=== PATIENT | male | born 1935 | race Caucasian/White ===

== ENCOUNTER → 2017-04-06 | Outpatient (CLI) | payer MEDICARE ==
[~2017-04-06] MED LIST: ADVAIR 250-501 EACH INH; ALLOPURINOL300 MG PO; ASCRIPTIN 325325 MG PO; ASPIRIN325 MG PO; ATENOLOL50 MG; BACTRIM DS TAB1 EACH PO; COZAAR50 MG PO; FISH OIL 1,2001 EAC1 PO; FLAGYL500 MG PO; FLOMAX0.4 MG PO; HUMULIN N100 UNITS/ SQ; HUMULIN R 500; HUMULIN R100 UNIT/2 SQ; HUMULIN R500 UNIT/1 SQ; ISOSORBIDE MONO30 MG PO; ISOSORBIDE MONO60 M1 PO; KLOR-CON PO; LEVOTHYROXINE75 MCG PO; OMEGA 3 FISH O1 EACH PO; TRICOR PO; VITAMIN E400 UNI1 PO; Z.0.ATENOLOL50 MG PO; Z.0.COZAAR50 MG PO; Z.0.FUROSEMIDE40 MG PO; Z.0.HUMULIN N100 UNI SC; Z.0.HUMULIN R500 UNI SC; Z.0.SYNTHROID100 MCG PO
--- NOTE | 2017-04-06 14:10 | Diagnostic Imaging Report ---
PROCEDURE:US RETROPERITONEAL ( KIDNEY ). COMPARISON:CT abdomen 08/07/16 INDICATIONS:RENAL CYST TECHNIQUE: Luu-scale and color sonographic images of the bilateral kidneys and bladder where obtained in transverse and longitudinal planes. Study is compromised due to patient's generous body habitus. FINDINGS: RIGHT KIDNEY: Measures 14 cm in length. The cortex is diminutive. Cysts: None visualized Solid masses: None visualized Stones: None visualized Hydronephrosis: None Echogenicity: Normal LEFT KIDNEY: Measures 16 cm in length. The cortex is diminutive. Cysts: None visualized Solid masses: Nonvisualized Stones: Nonvisualized Hydronephrosis: None Echogenicity: Normal Bladder: Collapsed. No free fluid. Visualized portions of the liver demonstrate no evidence of mass. The liver is increased in echotexture suggestive of steatosis. CONCLUSION: Compromised study as described above. Renal masses, if present, are not visible. Atrophic kidneys. No hydronephrosis. Dictated by: Ryan Mead M.D. on 04/06/2017 at 14:18 Electronically approved by: Ryan Mead M.D. on 04/06/2017 at 14:18
== END ==
LOC: US 12:04
PROVIDERS: ATTEND Urology
DX: N28.1 Cyst of kidney, acquired (principal)
CPT/HCPCS: 76770

== ENCOUNTER → 2017-06-13 | Outpatient (CLI) | payer MEDICARE ==
--- NOTE | 2017-06-13 12:03 | Diagnostic Imaging Report ---
PROCEDURE:X-RAY MODIFIED BARIUM SWALLOW COMPARISON:None. INDICATIONS:Not provided. DISCUSSION:Fluoroscopic examination was performed in conjunction with speech pathology, during swallowing of a variety of thin and thick liquid consistencies. CONCLUSION:Radiopaque noted with multiple consistencies. Wilmer aspiration noted with administration of thin liquid. Please see the report from speech pathology for complete details. Dictated by: Ricardo Gaxiola M.D. on 06/13/2017 at 12:03 Electronically approved by: Ricardo Gaxiola M.D. on 06/13/2017 at 12:03
== END ==
LOC: DX 08:09 → EDSTATUS 09:00
PROVIDERS: ATTEND Internal Medicine Gastroenterology
DX: R13.10 Dysphagia, unspecified (principal)
CPT/HCPCS: 74230; 92611; G8996; G8997

== ENCOUNTER 2017-06-19 15:18 | Emergency (ER) | payer MEDICARE ==
[~2017-06-19] VITALS: Ht 185.4 cm; Wt 149.7 kg
== END 2017-06-19 17:03 | disposition home or self-care (01) ==
LOC: ER 15:43
DX: M79.672 Pain in left foot (principal); E10.40 Type 1 diabetes mellitus with diabetic neuropathy, unspecified; I10 Essential (primary) hypertension; E66.9 Obesity, unspecified
CPT/HCPCS: 99281

== ENCOUNTER 2017-07-26 11:51 | Outpatient (RCR) | payer MEDICARE | END 2017-07-30 | LOC: ST 11:51 | PROVIDERS: ATTEND Internal Medicine Gastroenterology | DX: R13.13 Dysphagia, pharyngeal phase (principal); Z86.73 Personal history of transient ischemic attack (TIA), and cerebral infarction without residual deficits | CPT/HCPCS: 92526 ×10; 92610; G8996; G8997 ==

== ENCOUNTER → 2017-07-31 | Outpatient (CLI) | payer MEDICARE ==
--- NOTE | 2017-08-01 14:11 | Diagnostic Imaging Report ---
PROCEDURE:X-RAY MODIFIED BARIUM SWALLOW COMPARISON:None. INDICATIONS:Dysphagia. DISCUSSION:Fluoroscopic examination was performed in conjunction with speech pathology, during swallowing of a variety of thin and thick liquid consistencies. CONCLUSION: Trace aspiration with thin liquids. Please see the report from speech pathology for complete details. Dictated by: Ankur Burgos M.D. on 08/01/2017 at 14:12 Electronically approved by: Ankur Burgos M.D. on 08/01/2017 at 14:12
== END ==
LOC: DX 12:21
PROVIDERS: ATTEND Internal Medicine Gastroenterology
DX: R13.13 Dysphagia, pharyngeal phase (principal); I69.90 Unspecified sequelae of unspecified cerebrovascular disease
CPT/HCPCS: 74230; 92611; G8996; G8997

== ENCOUNTER 2017-08-29 12:00 | Outpatient (RCR) | payer MEDICARE | END 2017-08-30 | LOC: ST 12:00 | PROVIDERS: ATTEND Internal Medicine Gastroenterology | DX: R13.13 Dysphagia, pharyngeal phase (principal); Z86.73 Personal history of transient ischemic attack (TIA), and cerebral infarction without residual deficits | CPT/HCPCS: 92526 ×9; G8996; G8997 ==

== ENCOUNTER 2017-09-03 12:00 | Outpatient (RCR) | payer MEDICARE | END 2017-09-29 | LOC: ST 12:00 | PROVIDERS: ATTEND Internal Medicine Gastroenterology | DX: R13.13 Dysphagia, pharyngeal phase (principal); Z86.73 Personal history of transient ischemic attack (TIA), and cerebral infarction without residual deficits ==

== ENCOUNTER → 2017-09-05 | Outpatient (CLI) | payer MEDICARE ==
--- NOTE | 2017-09-05 17:57 | Diagnostic Imaging Report ---
PROCEDURE:X-RAY MODIFIED BARIUM SWALLOW COMPARISON:07/31/17 INDICATIONS:Not provided. DISCUSSION:Fluoroscopic examination was performed in conjunction with speech pathology, during swallowing of a variety of thin and thick liquid consistencies. Fluoroscopy time: 2:03 min Cumulative air kerma : 16.85 mGy CONCLUSION:One episode of minimal silent aspiration with mixed consistency. Please see the report from speech pathology for complete details. Dictated by: Bubba Lara M.D. on 09/05/2017 at 18:00 Electronically approved by: Bubba Lara M.D. on 09/05/2017 at 18:00
== END ==
LOC: DX 11:32
PROVIDERS: ATTEND Internal Medicine
DX: R13.13 Dysphagia, pharyngeal phase (principal); I69.398 Other sequelae of cerebral infarction
CPT/HCPCS: 74230; 92611; G8996; G8997; G8998

== ENCOUNTER → 2017-10-31 | Outpatient (CLI) | payer MEDICARE ==
--- NOTE | 2017-10-31 18:08 | Diagnostic Imaging Report ---
PROCEDURE:X-RAY ABDOMEN - KUB COMPARISON:KUB dated 01/12/17 INDICATIONS:STONES FINDINGS: Limited by body habitus. There is a non-obstructed bowel-gas pattern. There are no calcifications projected over the renal shadows, expected course of the ureters or bladder. Left upper quadrant calcification is again seen, which was characterized as splenic calcified granuloma on prior exam. There are no acute osseous abnormalities. The lung bases are clear. CONCLUSION: Nonobstructive bowel gas pattern. No definite evidence of nephrolithiasis. Dictated by: Bubba Lara M.D. on 10/31/2017 at 18:13 Electronically approved by: Bubba Lara M.D. on 10/31/2017 at 18:13
== END ==
LOC: RAD 17:25
PROVIDERS: ATTEND Urology
DX: N20.0 Calculus of kidney (principal)
CPT/HCPCS: 74018

== ENCOUNTER 2017-12-21 14:41 | Inpatient (IN) | payer MEDICARE ==
[~2017-12-21] VITALS: Ht 185.4 cm; Wt 153.8 kg
[~2017-12-21 14:41] MED LIST changes: -ATENOLOL50 MG; +ATENOLOL50 MG PO
[2017-12-21] MEDS: ALBUTEROL SULF 0.083% NEB SOLN 3 ML NEB NEB STA ×2 (15:38→17:30)
[2017-12-21] MEDS: IPRATROPIUM BROMIDE 0.02% 2.5 ML NEB NEB STA ×2 (15:38→17:30)
[2017-12-21 16:32] LABS: BASOPHILS # (AUTO) 0.1 (0.0-0.1); BASOPHILS % 0.4 % (0.0-1.0); EOSINOPHILS # (AUTO) 1.6 (0.0-0.4); EOSINOPHILS % 12.6 % (0.0-6.0); HEMATOCRIT 32.6 % (38.2-49.6); HEMOGLOBIN 10.4 g/dL (14.0-18.0); LYMPHOCYTES # (AUTO) 1.3 (1.0-3.2); MEAN CORPUSCULAR HEMOGLOBIN 28.3 pg (28-32); MEAN CORPUSCULAR HGB CONC 31.9 g/dL (31-35); MEAN CORPUSCULAR VOLUME 88.6 fL (81-99); MONOCYTES % 8.1 % (4.4-11.3); NEUTROPHILS # (AUTO) 8.5 (2.1-6.9); NEUTROPHILS % 68.3 % (38.7-80.0); PLATELET COUNT 138 x10e3/uL (140-360); RED BLOOD COUNT 3.68 x10e6/uL (4.3-5.7); RED CELL DISTRIBUTION WIDTH 16.4 % (11.7-14.4)
--- NOTE | 2017-12-21 16:39 | Diagnostic Imaging Report ---
EXAMINATION: CHEST SINGLE (PORTABLE) INDICATION: Chest pain. Abdomen pain. COMPARISON: July 29, 2016 FINDINGS: Portable AP view Limited by body habitus. TUBES and LINES: Metallic device and wires overlie the right and left chest. LUNGS: Lungs are well inflated. Mild central vascular congestion. There is no evidence of pneumonia or pulmonary edema. PLEURA: No pleural effusion or pneumothorax. HEART AND MEDIASTINUM: Thickened right paratracheal stripe. BONES AND SOFT TISSUES: No acute osseous lesion. Soft tissues are unremarkable. UPPER ABDOMEN: No free air under the diaphragm. IMPRESSION: Mild central vascular congestion. Thickened right paratracheal stripe could be artifactual. Upright PA and lateral chest radiographs are recommended Signed by: Dr. Mao Hays M.D. on 12/21/2017 4:34 PM
[2017-12-21 16:43] LABS: INR 1.02; PROTHROMBIN TIME 14.3 seconds (11.9-14.5)
[2017-12-21 16:44] LABS: PARTIAL THROMBOPLASTIN TIME 34.6 seconds (23.8-35.5)
[2017-12-21 17:55] LABS: CREATINE KINASE MB 4.3 ng/mL (0-5.0)
[2017-12-21 17:56] LABS: ALBUMIN 3.1 g/dL (3.5-5.0); ALBUMIN/GLOBULIN RATIO 0.9 (0.8-2.0); ANION GAP 18.1 mmol/L (8-16); CALCIUM 8.2 mg/dL (8.4-10.2); CREATININE, SERUM 7.32 mg/dL (0.72-1.25)
[2017-12-21 17:58] LABS: POTASSIUM 6.1 mmol/L (3.5-5.1)
[2017-12-21] MEDS ORDERED: CITRATE OF MAGNESIA 300ML BOTTLE PO ONE (18:00)
[2017-12-21] MEDS ORDERED: SODIUM BICARBONATE 8.4% 50 ML VIAL IV STA ×2 (18:09→18:15)
[2017-12-21] MEDS ORDERED: DEXTROSE 50% SYRINGE 50 ML IV STA (18:09)
[2017-12-21] MEDS ORDERED: ALBUTEROL SULF 0.083% NEB SOLN 3 ML NEB NEB STA (18:09)
[2017-12-21] MEDS ORDERED: CALCIUM GLUCONATE 10% INJ 9.3 MEQ in SODIUM CHLORIDE 0.9% 100 ML 100 ML IV ONE (18:15)
[2017-12-21] MEDS ORDERED: SOD POLYSTYRENE SULFONATE SUSP 15 GM/60 ML BTL PO ONE (18:15)
[2017-12-21] MEDS ORDERED: INSULIN REGULAR, HUMAN 100 UNIT/1 ML 3ML VIAL IV ONE (18:15)
[2017-12-21] MEDS ORDERED: CALCIUM GLUCONATE 10% INJ 0.465 MEQ/ML VIAL ONE (18:22)
[2017-12-21] MEDS ORDERED: SODIUM CHLORIDE FLUSH 10 ML SYR INJ PRN (18:30)
[2017-12-21] MEDS ORDERED: ASPIRIN 81 MG CHEW TAB PO ONE (18:30)
[2017-12-21] MEDS ORDERED: GABAPENTIN300 MG PO (19:26)
[2017-12-21] MEDS ORDERED: LEVOTHYROXINE88 MCG PO (19:26)
[2017-12-21 20:02] LABS: BILIRUBIN,URINE NEGATIVE (NEGATIVE); CLARITY,URINE SL CLOUDY (CLEAR); COLOR,URINE YELLOW (YELLOW); KETONES,URINE NEGATIVE (NEGATIVE); LEUKOCYTE ESTERASE ,URINE TRACE (NEGATIVE); NITRITE,URINE NEGATIVE (NEGATIVE); PROTEIN,URINE DIPSTICK TRACE (NEGATIVE); URINE UROBILINOGEN 0.2 mg/dL (0.2 - 1)
[2017-12-21 20:13] LABS: AMORPHOUS SEDIMENT,URINE MODERATE (FEW); BACTERIA,URINE MODERATE /HPF; WBC,URINE (MAN) 0-5 /HPF (0-5)
[2017-12-21 20:14] LABS: HYALINE CASTS 0-1 (0-1)
[2017-12-21 20:30] VITALS: BP 115/53
[2017-12-21 20:42] VITALS: BP 126/62
[2017-12-21 22:00] VITALS: BP 126/62
[2017-12-21] MEDS ORDERED: NPH, HUMAN INSULIN ISOPHANE 100 UNIT/1 ML 3ML VIAL SQ ONE (22:00)
[2017-12-21] MEDS ORDERED: GABAPENTIN 300 MG CAP PO PRN (22:00)
[2017-12-21] MEDS ORDERED: DEXTROSE 50% SYRINGE 50 ML IV PRN (22:15)
[2017-12-22] VITALS (8 sets, daily range): BP systolic 108–137; BP diastolic 53–69
[2017-12-22 01:50] LABS: CREATINE KINASE MB 3.7 ng/mL (0-5.0)
[2017-12-22 05:06] LABS: BASOPHILS # (AUTO) 0.1 (0.0-0.1); BASOPHILS % 0.4 % (0.0-1.0); EOSINOPHILS # (AUTO) 1.5 (0.0-0.4); EOSINOPHILS % 13.3 % (0.0-6.0); HEMATOCRIT 28.2 % (38.2-49.6); LYMPHOCYTES # (AUTO) 1.2 (1.0-3.2); LYMPHOCYTES % 10.4 % (18.0-39.1); MEAN CORPUSCULAR HEMOGLOBIN 28.1 pg (28-32); MEAN CORPUSCULAR HGB CONC 31.9 g/dL (31-35); MEAN CORPUSCULAR VOLUME 88.1 fL (81-99); MONOCYTES # (AUTO) 1.2 (0.2-0.8); MONOCYTES % 10.2 % (4.4-11.3); NEUTROPHILS # (AUTO) 7.4 (2.1-6.9); NEUTROPHILS % 65.1 % (38.7-80.0); PLATELET COUNT 126 x10e3/uL (140-360); RED CELL DISTRIBUTION WIDTH 16.4 % (11.7-14.4)
[2017-12-22 05:15] LABS: INR 1.05; PROTHROMBIN TIME 14.6 seconds (11.9-14.5)
[2017-12-22 05:16] LABS: PARTIAL THROMBOPLASTIN TIME 35.4 seconds (23.8-35.5)
[2017-12-22 05:34] LABS: ANION GAP 19.4 mmol/L (8-16); CALCIUM 8.2 mg/dL (8.4-10.2); CREATININE, SERUM 7.26 mg/dL (0.72-1.25); MAGNESIUM 1.2 MG/DL (1.3-2.1); POTASSIUM 5.4 mmol/L (3.5-5.1)
[2017-12-22] MEDS: LEVOTHYROXINE SODIUM 88 MCG TAB PO SCH (06:18)
[2017-12-22] MEDS ORDERED: INSULIN REGULAR, HUMAN 100 UNIT/1 ML 3ML VIAL SQ SCH (07:30)
--- NOTE | 2017-12-22 07:41 | Diagnostic Imaging Report ---
CHEST SINGLE (PORTABLE), 12/22/2017 7:00 AM Technique: CHEST SINGLE (PORTABLE) Comparison: 12/21/2017 Clinical history: Shortness of breath Findings: See Impression Impression: Limited by body habitus, portable technique. 1. Lines/Tubes: Electronic device overlies the right hemithorax. 2. Stable mildly enlarged cardiomediastinal silhouette. Consider follow-up upright PA and lateral. 3. No consolidation or edema. 4. No effusion or pneumothorax. Left costophrenic angle is excluded. Signed by: Dr Aida Dial MD on 12/22/2017 6:31 AM
[2017-12-22] MEDS ORDERED: LOSARTAN POTASSIUM 25 MG TAB PO SCH (09:00)
[2017-12-22] MEDS ORDERED: NPH, HUMAN INSULIN ISOPHANE 100 UNIT/1 ML 3ML VIAL SQ SCH (09:00)
[2017-12-22] MEDS ORDERED: FUROSEMIDE 40 MG TAB PO SCH (09:00)
[2017-12-22] MEDS: ISOSORBIDE MONONITRATE 30 MG TAB CR PO SCH (09:06)
[2017-12-22] MEDS: ATENOLOL 50 MG TAB PO SCH (09:06)
[2017-12-22] MEDS: OMEGA 3 POLYUNSAT FATTY ACIDS 1000 MG SOFTGEL PO SCH ×2 (09:06→16:50)
[2017-12-22] MEDS: ALLOPURINOL 300 MG TAB PO SCH (09:06)
[2017-12-22] MEDS: TAMSULOSIN HCL 0.4 MG CAP PO SCH (09:06)
[2017-12-22] MEDS: INSULIN REGULAR, HUMAN 100 UNIT/1 ML 3ML VIAL SQ SCH ×3 (09:38→16:50)
[2017-12-22] MEDS: NPH, HUMAN INSULIN ISOPHANE 100 UNIT/1 ML 3ML VIAL SQ SCH ×2 (09:38→21:00)
--- NOTE | 2017-12-22 10:52 | Consultation ---
DATE OF CONSULTATION: December 22, 2017 PULMONARY/CRITICAL CARE CONSULTATION REFERRING PHYSICIAN: Dr. Dima Pace CHIEF COMPLAINT: Decreased urination, worsening leg swelling and worsening pulmonary congestion. HISTORY OF PRESENT ILLNESS: The patient is an 82-year-old man. He has a history of obstructive sleep apnea. He uses BiPAP at home on a nightly basis. He also has a history of dysphagia and recurrent aspiration. He previously received speech therapy. Yesterday he was complaining of more congestion in his chest and cough. He was concerned about recurrent aspiration. He also noted some pain in the left side of the chest that was worse with palpation, but this has resolved over the past 24 hours. He complained of not being able to urinate despite taking increased Lasix. When the patient came to the emergency department, he was found to have a worsening creatinine. His baseline GFR of 28 was decreased to 8 mL. His potassium was elevated. He was subsequently started on some IV fluids and is awaiting consultation by nephrology. PAST MEDICAL HISTORY 1. Chronic kidney disease, stage 4. 2. Obstructive sleep apnea. 3. Recurrent aspiration pneumonitis. 4. Diabetes. 5. Hypertension. 6. Lymphedema. PAST SURGICAL HISTORY: Noncontributory. ALLERGIES: THE PATIENT IS ALLERGIC TO CEFTRIAXONE. FAMILY HISTORY: Noncontributory. REVIEW OF SYSTEMS: There is no fever. He has no headache. He has no neck pain. He is not having any sore throat. He does note some coughing and congestion. He did have some pain on the left side of the thorax, but this has improved. He does not have any anterior chest pain. There is no nausea or vomiting. He has no abdominal pain. He does report worsening leg edema and decreased urine output. PHYSICAL EXAMINATION VITALS: The patient has blood pressure 137/59 and a pulse of 68. His O2 saturation is 97%. HEENT: No facial swelling or erythema. The oropharynx is normal. LYMPHATIC: No submandibular, cervical or supraclavicular adenopathy. CARDIAC: Regular rate rhythm with normal S1 and S2. LUNGS: Auscultation of the lungs reveals clear breath sounds bilaterally. ABDOMEN: Soft and nontender. There is no rebound or guarding. EXTREMITIES: Shows 2 to 3+ edema. IMPRESSIONS 1. Obstructive sleep apnea. 2. Oropharyngeal dysphagia and recurrent aspiration. 3. Wzgxc-rr-pmomkfr renal failure. 4. Diabetes. 5. Hypertension. 6. Gout. PLAN 1. Continue BiPAP at his home settings of . 2. Re-evaluation by speech therapy. 3. The patient is awaiting further recommendations from nephrology. 4. Monitor blood sugar and blood pressure. Job#: [id number] HUMERA TIAN
[2017-12-22] MEDS: CITRIC ACID/SODIUM CITRATE 30 ML UDC PO SCH ×2 (14:23→21:47)
--- NOTE | 2017-12-22 15:22 | Consultation ---
DATE OF CONSULTATION: December 22, 2017 NEPHROLOGY CONSULTATION REFERRING PHYSICIAN: Dr. Dima Pace HISTORY OF PRESENT ILLNESS: The patient is an 82-year-old gentleman who has a history of hypertension, diabetes, chronic kidney disease stage 4, obstructive sleep apnea, and BPH. He presents for further evaluation of diarrhea for the prior 24-plus hours. I am asked to evaluate acute kidney injury and abnormal chemistries. The patient is accompanied by his and daughter, who assist in history-taking. I reviewed the assessment and plan with the floor nursing staff as well as with the patient and his family. The patient is known to our nephrology service and has stage-4 chronic kidney disease with an estimated creatinine clearance of approximately 25 mL per minute by the family's history. At this time, he presents with an elevated serum creatinine and urea as noted below as well as initial hyperkalemia. He had medical treatment, and his potassium level improved. Additionally, he was noted to have difficulty urinating until a Quintero catheter was placed in the emergency room and revealed positive urine output. He continues to be nonoliguric. Review of his home medications includes losartan and oral Lasix. These medicines are continued at this time. The patient states that he was seen in an outpatient clinic setting where he was noted to be hypotensive and weak, prompting referral to this facility. Since admission, he is awake, alert, hemodynamically stable, with a systolic blood pressure in the 120 to 130 mm range. He is awake, alert and oriented times 4, albeit tired-appearing, as well as baseline mentation according to the patient's family. REVIEW OF SYSTEMS: Otherwise unremarkable for angina, palpitations, headache, stiff neck, epistaxis, hemoptysis, abdominal pain, gross hematuria, melanic stools, bright red blood per rectum, flank pain. He does note positive sustained lower extremity edema, a dry cough, and the recent onset of watery diarrhea. He has had no skin lesions or skin rash. Positive decreased urine output. He has had no recent outpatient change in medications or oral antibiotics initiated. PAST MEDICAL HISTORY 1. Chronic kidney disease, stage 4. 2. Diabetes mellitus. 3. Hypertension. 4. BPH. 5. Obesity. 6. Obstructive sleep apnea. 7. Lymphedema history by EMR review. FAMILY HISTORY: Positive for diabetes. ALLERGIES: CEFTRIAXONE/ROCEPHIN. PAST SURGICAL HISTORY: Noncontributory. LABORATORY: At this time, white count 11.3, hemoglobin 9, platelets 126. Eosinophils are elevated at 10.2%. Sodium 141. Initial potassium 6.1, now 5.4. Chloride 109, bicarb 18, BUN 128, creatinine 7.2, glucose 216, calcium 8.2, magnesium 1.2. CK 169. Urinalysis: Yellow, slightly cloudy, 1.010, trace protein, positive blood on dipstick, 6-10 per high-power field on microscopy, 0-5 white cells per high-power field by microscopy, moderate bacteria. Chest x-ray reveals stable, mildly enlarged, cardiomediastinal silhouette. No consolidation or edema. No effusion or pneumothorax by formal report. PHYSICAL EXAMINATION GENERAL: Awake, alert and oriented times 4. Pleasant. Tired-appearing. VITAL SIGNS: Afebrile at 98.1. Pulse 68 and regular. Respirations 16 and nonlabored. Blood pressure 124/56. Pulse oxygen 96% O2. HEAD AND NECK: Atraumatic, normocephalic. Slightly moist oral mucosa. No skin or mucosal lesions. Neck is supple. No JVP. Positive midline trachea. LUNGS: Clear bilaterally. No wheezes, rhonchi or rales. BACK: No bilateral CVA tenderness. No truncal lesions. CARDIAC: Regular rate. No S3 gallop. No rubs. ABDOMEN: Obese, soft, nontender, nondistended. No guarding or rebound. : Positive Quintero catheter. Fairly clear urine output. EXTREMITIES: Bilateral lower extremities reveal 2+ pitting edema. No lesions or rash apparent. ASSESSMENT 1. Initial oliguric acute kidney injury, now nonoliguric with Quintero catheter placement. This is superimposed on known underlying chronic kidney disease, stage 4. Etiologies to be considered are sustained acute tubular necrosis from combination of losartan, oral Lasix diuretic, and combined sustained diarrhea. An element of obstruction is also to be considered with urine output increasing after Quintero catheter was placed. 2. Hyperkalemia. Multiple factors including renal failure, angiotensin receptor jose daniel agent, decreased renal tubular delivery, and likely diet content. 3. Metabolic acidosis. 4. Increased volume status. 5. Presently hemodynamically stable. 6. Mild hypomagnesemia. 7. Hypereosinophilia by serum. PLAN 1. Daily renal panel. 2. Discontinue losartan and avoid all ARB and BRENDA inhibitors. 3. Oral sodium bicarbonate/Bicitra solution. Monitor bicarbonate levels. 4. Obtain outpatient clinic records for comparison when available. 5. Dose medications for present creatinine clearance less than 10 to 12 mL per minute. 6. While there are no emergent indications for dialysis, if there is no further improvement of azotemia with placement of the Quintero catheter and medication treatment, will initiate hemodialysis via a temporary dialysis catheter within 24 to 48 hours as discussed with the patient and his family. The procedure and questions were reviewed with the patient and his family. 7. Renal diet with 1.2-liter fluid restriction. 8. Serial renal indices and medically treat hyperkalemia. 9. Sodium bicarbonate with repletion, Bicitra 30 mL every 8 hours and adjust thereafter. 10. Continue Quintero catheter for now. 11. Strict input and output. 12. Oral magnesium repletion and monitor magnesium. 13. Check phosphorus and intact parathyroid hormone levels for chronicity. 14. Will make further recommendations per clinical course and data. Job#: [id number]
[2017-12-22] MEDS: FUROSEMIDE INJ 10 MG/ML 4 ML VIAL IV SCH (21:47)
[2017-12-23] VITALS (9 sets, daily range): BP systolic 109–145; BP diastolic 54–69
[2017-12-23 04:59] LABS: HEMATOCRIT 28.5 % (38.2-49.6); HEMOGLOBIN 9.1 g/dL (14.0-18.0); MEAN CORPUSCULAR HEMOGLOBIN 28.1 pg (28-32); MEAN CORPUSCULAR HGB CONC 31.9 g/dL (31-35); PLATELET COUNT 129 x10e3/uL (140-360); RED BLOOD COUNT 3.24 x10e6/uL (4.3-5.7); RED CELL DISTRIBUTION WIDTH 16.5 % (11.7-14.4)
[2017-12-23 05:34] LABS: ANION GAP 21.1 mmol/L (8-16); CREATININE, SERUM 7.52 mg/dL (0.72-1.25); PHOSPHORUS 5.1 MG/DL (2.3-4.7); POTASSIUM 5.1 mmol/L (3.5-5.1)
[2017-12-23] MEDS: CITRIC ACID/SODIUM CITRATE 30 ML UDC PO SCH ×3 (06:48→22:11)
[2017-12-23] MEDS: LEVOTHYROXINE SODIUM 88 MCG TAB PO SCH (06:48)
[2017-12-23] MEDS: INSULIN REGULAR, HUMAN 100 UNIT/1 ML 3ML VIAL SQ SCH ×3 (07:30→17:02)
[2017-12-23] MEDS: NPH, HUMAN INSULIN ISOPHANE 100 UNIT/1 ML 3ML VIAL SQ SCH ×2 (09:00→22:58)
[2017-12-23] MEDS: ISOSORBIDE MONONITRATE 30 MG TAB CR PO SCH (09:23)
[2017-12-23] MEDS: TAMSULOSIN HCL 0.4 MG CAP PO SCH (09:23)
[2017-12-23] MEDS: OMEGA 3 POLYUNSAT FATTY ACIDS 1000 MG SOFTGEL PO SCH ×2 (09:23→17:02)
[2017-12-23] MEDS: FUROSEMIDE INJ 10 MG/ML 4 ML VIAL IV SCH (09:23)
[2017-12-23] MEDS: ATENOLOL 50 MG TAB PO SCH (09:24)
[2017-12-23] MEDS: ALLOPURINOL 300 MG TAB PO SCH (09:24)
[2017-12-23] MEDS ORDERED: FUROSEMIDE INJ 10 MG/ML 4 ML VIAL IV NR (11:30)
[2017-12-23] MEDS: FUROSEMIDE INJ 250 MG in SODIUM CHLORIDE 0.9% 250ML 225 ML IV SCH (11:41)
[2017-12-24] VITALS (15 sets, daily range): BP systolic 100–165; BP diastolic 52–85
[2017-12-24] MEDS: FUROSEMIDE INJ 250 MG in SODIUM CHLORIDE 0.9% 250ML 225 ML IV SCH (00:23)
[2017-12-24] MEDS: LEVOTHYROXINE SODIUM 88 MCG TAB PO SCH (05:02)
[2017-12-24] MEDS: CITRIC ACID/SODIUM CITRATE 30 ML UDC PO SCH ×3 (05:02→22:00)
[2017-12-24 05:53] LABS: HEMATOCRIT 27.1 % (38.2-49.6); HEMOGLOBIN 8.7 g/dL (14.0-18.0); MEAN CORPUSCULAR HEMOGLOBIN 28.3 pg (28-32); MEAN CORPUSCULAR HGB CONC 32.1 g/dL (31-35); MEAN CORPUSCULAR VOLUME 88.3 fL (81-99); PLATELET COUNT 132 x10e3/uL (140-360); RED BLOOD COUNT 3.07 x10e6/uL (4.3-5.7); RED CELL DISTRIBUTION WIDTH 16.4 % (11.7-14.4)
[2017-12-24 08:31] LABS: CALCIUM 7.7 mg/dL (8.4-10.2); POTASSIUM 5.1 mmol/L (3.5-5.1)
[2017-12-24] MEDS: OMEGA 3 POLYUNSAT FATTY ACIDS 1000 MG SOFTGEL PO SCH ×4 (08:49→18:26)
[2017-12-24] MEDS: TAMSULOSIN HCL 0.4 MG CAP PO SCH ×2 (08:49→18:21)
[2017-12-24] MEDS: ALLOPURINOL 300 MG TAB PO SCH ×2 (08:49→12:59)
[2017-12-24] MEDS: INSULIN REGULAR, HUMAN 100 UNIT/1 ML 3ML VIAL SQ SCH ×4 (08:53→16:30)
[2017-12-24] MEDS: NPH, HUMAN INSULIN ISOPHANE 100 UNIT/1 ML 3ML VIAL SQ SCH ×2 (08:53→21:00)
[2017-12-24] MEDS: ATENOLOL 50 MG TAB PO SCH (09:00)
[2017-12-24] MEDS: ISOSORBIDE MONONITRATE 30 MG TAB CR PO SCH (09:00)
[2017-12-24 09:13] LABS: ANION GAP 21.1 mmol/L (8-16); CREATININE, SERUM 7.83 mg/dL (0.72-1.25)
[2017-12-24] MEDS ORDERED: LIDOCAINE HCL 1% LOCAL INJ 20 ML VIAL ONE (11:49)
--- NOTE | 2017-12-24 13:10 | Diagnostic Imaging Report ---
Date and Time: 12/24/2017 Procedure: Right internal jugular temporary hemodialysis catheter placement grinder set up operator surface: Dr. Gaxiola Pre-operative diagnosis: Hyperkalemia, acute kidney injury Post-operative diagnosis: Hyperkalemia, acute kidney injury Conscious Sedation: None The patient's heart rate and pulse oximetry were continuously monitored by the [facility] nurse. Blood pressure was monitored at 5 minute intervals. Additional Medications: Lidocaine 1% for local anesthesia Fluoroscopy time: 0.3 minutes Frontal Air Kerma: 11.70 mGy Contrast used: None Estimated blood loss: Minimal Blood products administered: None Specimens: None Implants: 13 Guamanian 15 cm triple-lumen hi flow central venous catheter Complications: No immediate Condition at completion: Stable Disposition: Return to [facility] [place] DISCUSSION: Informed consent was obtained and documented in the medical record after discussion of risks and benefits. The patient was placed in the supine position on the hospital bed. Preliminary sonographic evaluation confirmed patency of the right internal jugular vein, evidenced by compressibility. The right neck was prepped and draped in the standard sterile fashion. 1% lidocaine was infiltrated into the skin and subcutaneous tissues for local anesthesia. Then under continuous sonographic guidance, an 18-gauge singlewall needle was used to access the right internal jugular vein. A permanent sonographic image was stored in the medical record. A 0.0 3 5-in. wire was advanced centrally into the IVC under fluoroscopic guidance. The needle was removed over the wire and the tract was dilated. Then a 13 Guamanian, 15 cmtriple-lumen central venous catheter was advanced over the wire to full depth. The wire was removed, and the catheter tip was positioned at the low superior vena cava.. Each lumen showed adequate bidirectional flow and was flushed with sterile saline. The catheter was secured to the skin with monofilament nylon suture and a sterile dressing was applied. The patient tolerated the procedure well without immediate complication. FINDINGS: Patent right internal jugular vein IMPRESSION: Successful placement of a nontunneled hemodialysis catheter (13 Guamanian, 15 cm triple-lumen Trialysis) by a right internal jugular approach under sonographic and fluoroscopic guidance. Signed by: Dr. Ricardo Gaxiola M.D. on 12/24/2017 1:04 PM
--- NOTE | 2017-12-24 13:10 | Diagnostic Imaging Report ---
Date and Time: 12/24/2017 Procedure: Right internal jugular temporary hemodialysis catheter placement sheeter operator: Dr. Gaxiola Pre-operative diagnosis: Hyperkalemia, acute kidney injury Post-operative diagnosis: Hyperkalemia, acute kidney injury Conscious Sedation: None The patient's heart rate and pulse oximetry were continuously monitored by the [facility] nurse. Blood pressure was monitored at 5 minute intervals. Additional Medications: Lidocaine 1% for local anesthesia Fluoroscopy time: 0.3 minutes Frontal Air Kerma: 11.70 mGy Contrast used: None Estimated blood loss: Minimal Blood products administered: None Specimens: None Implants: 13 Guinean 15 cm triple-lumen hi flow central venous catheter Complications: No immediate Condition at completion: Stable Disposition: Return to [facility] DISCUSSION: Informed consent was obtained and documented in the medical record after discussion of risks and benefits. The patient was placed in the supine position on the hospital bed. Preliminary sonographic evaluation confirmed patency of the right internal jugular vein, evidenced by compressibility. The right neck was prepped and draped in the standard sterile fashion. 1% lidocaine was infiltrated into the skin and subcutaneous tissues for local anesthesia. Then under continuous sonographic guidance, an 18-gauge singlewall needle was used to access the right internal jugular vein. A permanent sonographic image was stored in the medical record. A 0.0 3 5-in. wire was advanced centrally into the IVC under fluoroscopic guidance. The needle was removed over the wire and the tract was dilated. Then a 13 Guinean, 15 cmtriple-lumen central venous catheter was advanced over the wire to full depth. The wire was removed, and the catheter tip was positioned at the low superior vena cava.. Each lumen showed adequate bidirectional flow and was flushed with sterile saline. The catheter was secured to the skin with monofilament nylon suture and a sterile dressing was applied. The patient tolerated the procedure well without immediate complication. FINDINGS: Patent right internal jugular vein IMPRESSION: Successful placement of a nontunneled hemodialysis catheter (13 Guinean, 15 cm triple-lumen Trialysis) by a right internal jugular approach under sonographic and fluoroscopic guidance. Signed by: Dr. Ricardo Gaxiola M.D. on 12/24/2017 1:04 PM
[2017-12-24 13:25] LABS: EOSINOPHILS % (MANUAL) 17 % (0-7); HYPOCHROMASIA SLIGHT; LYMPHOCYTES % (MANUAL) 12 % (19-48); MONOCYTES % (MANUAL) 7 % (3.4-9.0); NEUTROPHILS % (MANUAL) 62 % (40-74); PROMYELOCYTES % (MANUAL) 1 % (0-0)
[2017-12-24 13:26] LABS: ANISOCYTOSIS SLIGHT; PLATELET ESTIMATE SLIGHTLY DECREASED; PLATELET MORPHOLOGY COMMENT NORMAL; POIKILOCYTOSIS SLIGHT; RBC MORPHOLOGY COMMENT ABNORMAL
--- NOTE | 2017-12-24 14:47 | Progress Note ---
DATE: December 24, 2017 PULMONARY/CRITICAL CARE PROGRESS NOTE SUBJECTIVE: The patient had a Jameson dialysis catheter placed. His BiPAP was adjusted. PHYSICAL EXAMINATION VITAL SIGNS: Patient is afebrile. The vital signs are stable. HEENT: Examination shows no facial swelling or erythema. The oropharynx is normal. LYMPHATIC: Examination shows no submandibular, cervical, or supraclavicular adenopathy. CARDIAC: Exam reveals a regular rate and rhythm with normal S1 and S2. There are no murmurs or rubs. LUNGS: Auscultation reveals decreased breath sounds at the bases. ABDOMEN: Soft, nontender. There is 2+ to 3+ leg edema. IMPRESSION 1. Dqngi-oz-auluvuj renal failure. 2. Hyperkalemia. 3. Obstructive sleep apnea. 4. Dysphagia and recurrent aspiration. 5. Diabetes. 6. Anemia. PLAN 1. Patient is scheduled for dialysis. 2. Continue BiPAP. 3. Swallowing evaluation is pending. Job#: [id number] [place]
[2017-12-24] MEDS ORDERED: SODIUM CHLORIDE 0.9% 1000ML 1,000 ML ONE (15:27)
[2017-12-24] MEDS ORDERED: HEPARIN SOD (PORCINE) 1000 UNIT/ML SDV IV PRN (15:30)
[2017-12-24] MEDS ORDERED: MANNITOL 25% 12.5GM/50 ML VIAL IV PRN (15:45)
[2017-12-25] VITALS (7 sets, daily range): BP systolic 105–167; BP diastolic 49–95
[2017-12-25 04:46] LABS: HEMATOCRIT 28.3 % (38.2-49.6); MEAN CORPUSCULAR HEMOGLOBIN 27.9 pg (28-32); MEAN CORPUSCULAR HGB CONC 31.8 g/dL (31-35); MEAN CORPUSCULAR VOLUME 87.6 fL (81-99); PLATELET COUNT 122 x10e3/uL (140-360); RED BLOOD COUNT 3.23 x10e6/uL (4.3-5.7); RED CELL DISTRIBUTION WIDTH 16.2 % (11.7-14.4)
[2017-12-25 05:05] LABS: ANION GAP 20.5 mmol/L (8-16); CREATININE, SERUM 6.63 mg/dL (0.72-1.25); POTASSIUM 4.5 mmol/L (3.5-5.1)
[2017-12-25] MEDS: LEVOTHYROXINE SODIUM 88 MCG TAB PO SCH (05:29)
[2017-12-25] MEDS: CITRIC ACID/SODIUM CITRATE 30 ML UDC PO SCH ×3 (05:29→21:04)
[2017-12-25 07:39] LABS: EOSINOPHILS % (MANUAL) 16 % (0-7); LYMPHOCYTES % (MANUAL) 14 % (19-48); MONOCYTES % (MANUAL) 2 % (3.4-9.0); NEUTROPHILS % (MANUAL) 67 % (40-74)
[2017-12-25 07:40] LABS: ANISOCYTOSIS SLIGHT; HYPOCHROMASIA SLIGHT; PLATELET ESTIMATE SLIGHTLY DECREASED; PLATELET MORPHOLOGY COMMENT FEW LARGE; RBC MORPHOLOGY COMMENT ABNORMAL
[2017-12-25 07:41] LABS: POIKILOCYTOSIS SLIGHT
[2017-12-25] MEDS: INSULIN REGULAR, HUMAN 100 UNIT/1 ML 3ML VIAL SQ SCH ×3 (08:01→17:30)
[2017-12-25] MEDS: NPH, HUMAN INSULIN ISOPHANE 100 UNIT/1 ML 3ML VIAL SQ SCH ×2 (08:02→20:57)
[2017-12-25] MEDS: OMEGA 3 POLYUNSAT FATTY ACIDS 1000 MG SOFTGEL PO SCH ×2 (08:13→17:29)
[2017-12-25] MEDS: ATENOLOL 50 MG TAB PO SCH ×2 (09:00→17:45)
[2017-12-25] MEDS: ISOSORBIDE MONONITRATE 30 MG TAB CR PO SCH ×2 (09:00→17:45)
[2017-12-25] MEDS ORDERED: SODIUM CHLORIDE 0.9% 1000ML 1,000 ML ONE (09:02)
--- NOTE | 2017-12-25 09:24 | Diagnostic Imaging Report ---
Exam: Modified barium swallow History: Past medical history of recurrent aspiration pneumonia. Comparison: None available Findings: Study was performed in conjunction with speech pathology. Patient was administered multiple different consistencies of barium impregnated liquids and solids with fluoroscopic recording. There was intermittent aspiration of thin liquids with a delayed clearing cough. Please see the full report provided by speech pathology. Fluoroscopy time: 59 seconds Cumulative area dose product: 943.29 cGycm2 Impression: Intermittent aspiration with thin liquids. Signed by: Dr. Jacky Davis DO on 12/25/2017 9:21 AM
[2017-12-25] MEDS ORDERED: HEPARIN SOD (PORCINE) 1000 UNIT/ML SDV IV PRN (09:45)
[2017-12-25] MEDS ORDERED: SODIUM CHLORIDE 0.9% 1000ML 2,000 ML IV PRN (09:45)
[2017-12-25] MEDS ORDERED: MANNITOL 25% 12.5GM/50 ML VIAL IV PRN (09:45)
[2017-12-25] MEDS ORDERED: ALBUMIN 25% 12.5GM 0.25 GM/ML BTL IV PRN (09:45)
[2017-12-25] MEDS ORDERED: SODIUM CHLORIDE 0.9% 250ML 500 ML IV PRN (09:45)
[2017-12-25] MEDS ORDERED: MANNITOL 25% 12.5GM/50ML 0 ML ONE (10:37)
[2017-12-25] MEDS: ALLOPURINOL 300 MG TAB PO SCH (12:44)
[2017-12-25] MEDS: TAMSULOSIN HCL 0.4 MG CAP PO SCH (12:44)
--- NOTE | 2017-12-25 15:02 | Progress Note ---
DATE: PULMONARY/CRITICAL CARE PROGRESS NOTE SUBJECTIVE: The patient had dialysis with 4 liters of fluid removed. He notes improvement in his malaise and congestion with this. Speech pathology confirmed recurrent aspiration. He reports some soreness from the BiPAP mask here in the hospital. PHYSICAL EXAMINATION VITAL SIGNS: The patient is afebrile. The vital signs are stable. HEENT: Examination shows no facial swelling or erythema. CARDIAC: Exam reveals regular rate and rhythm with normal S1 and S2. There are no murmurs or rubs. LUNGS: Auscultation of the lungs reveals rhonchorous breath sounds bilaterally. There is no wheezing. ABDOMEN: Soft and nontender. There is no rebound or guarding. EXTREMITIES: Examination shows 1 to 2+ leg edema. IMPRESSION 1. Obstructive sleep apnea. 2. Oropharyngeal dysphagia with recurrent aspiration. 3. Biheo-bu-nmqyigs renal failure. 4. Anemia. PLAN 1. The patient will require soft mechanical diet with thickened liquids. 2. Speech pathology to begin therapy. 3. Continue BiPAP. 4. Continue dialysis as per renal. Job#: [id number]
[2017-12-25] MEDS: LEVOFLOXACIN 500MG/D5W 100ML 100 ML IV SCH (17:29)
[2017-12-26] VITALS (9 sets, daily range): BP systolic 122–186; BP diastolic 49–109
[2017-12-26 05:42] LABS: ANION GAP 17.8 mmol/L (8-16); CALCIUM 8.7 mg/dL (8.4-10.2); CREATININE, SERUM 5.48 mg/dL (0.72-1.25); POTASSIUM 4.8 mmol/L (3.5-5.1)
[2017-12-26] MEDS: CITRIC ACID/SODIUM CITRATE 30 ML UDC PO SCH ×3 (05:57→22:18)
[2017-12-26] MEDS: LEVOTHYROXINE SODIUM 88 MCG TAB PO SCH (05:57)
[2017-12-26] MEDS: INSULIN REGULAR, HUMAN 100 UNIT/1 ML 3ML VIAL SQ SCH ×3 (07:30→16:28)
[2017-12-26] MEDS: ONDANSETRON HCL INJ 2 MG/ML VIAL IV PRN ×2 (08:10→19:23)
[2017-12-26] MEDS: NPH, HUMAN INSULIN ISOPHANE 100 UNIT/1 ML 3ML VIAL SQ SCH ×2 (09:00→20:36)
[2017-12-26] MEDS: TAMSULOSIN HCL 0.4 MG CAP PO SCH (09:39)
[2017-12-26] MEDS: OMEGA 3 POLYUNSAT FATTY ACIDS 1000 MG SOFTGEL PO SCH ×2 (09:39→16:28)
[2017-12-26] MEDS: ISOSORBIDE MONONITRATE 30 MG TAB CR PO SCH (09:39)
[2017-12-26] MEDS: ATENOLOL 50 MG TAB PO SCH (09:40)
[2017-12-26] MEDS: BALSAM PERU/CASTOR OIL 5 GM OINT...G. TP SCH (09:40)
[2017-12-26] MEDS: ALLOPURINOL 300 MG TAB PO SCH (09:40)
[2017-12-26] MEDS ORDERED: HYDRALAZINE HCL 20 MG/ML VIAL IV ONE (15:30)
[2017-12-26] MEDS: LEVOFLOXACIN 500MG/D5W 100ML 100 ML IV SCH (16:02)
[2017-12-26] MEDS: VALSARTAN 80 MG TAB PO SCH (20:35)
--- NOTE | 2017-12-26 20:51 | Progress Note ---
DATE: December 26, 2017 PULMONARY/CRITICAL CARE PROGRESS NOTE SUBJECTIVE: The patient reports less problem with his BiPAP at night. He still has some coughing with eating. He was seen by speech pathology. PHYSICAL EXAMINATION VITAL SIGNS: Patient is afebrile. Stable. HEENT: No facial swelling or erythema. Nasal mucosa is normal. The oropharynx is normal. LYMPHATIC: No submandibular, cervical or supraclavicular adenopathy. CARDIAC: Regular rate and rhythm with normal S1 and S2. LUNGS: Auscultation shows normal decreased breath sounds bilaterally. There is no wheezing. ABDOMEN: Soft, nontender. There is no rebound or guarding. EXTREMITIES: No leg edema or calf tenderness. IMPRESSIONS 1. Obstructive sleep apnea. 2. Aspiration with recurrent pneumonitis. 3. Uaawp-sq-yuowgnr renal failure. PLAN 1. Continue speech therapy. 2. BiPAP at night. 3. Arrangements are being made for transfer to rehab facility. Job#: [id number] [facility]
[2017-12-27] MEDS: ONDANSETRON HCL INJ 2 MG/ML VIAL IV PRN ×4 (00:56→22:08)
[2017-12-27 04:50] VITALS: BP 159/89
[2017-12-27 05:34] LABS: ANION GAP 15.7 mmol/L (8-16); CALCIUM 8.6 mg/dL (8.4-10.2); CREATININE, SERUM 4.07 mg/dL (0.72-1.25); POTASSIUM 4.7 mmol/L (3.5-5.1)
[2017-12-27] MEDS: CITRIC ACID/SODIUM CITRATE 30 ML UDC PO SCH ×3 (05:50→22:00)
[2017-12-27] MEDS: LEVOTHYROXINE SODIUM 88 MCG TAB PO SCH (05:50)
[2017-12-27] MEDS: INSULIN REGULAR, HUMAN 100 UNIT/1 ML 3ML VIAL SQ SCH ×3 (07:30→16:30)
[2017-12-27] MEDS: BALSAM PERU/CASTOR OIL 5 GM OINT...G. TP SCH (07:45)
--- NOTE | 2017-12-27 07:49 | Consultation ---
DATE OF CONSULTATION: December 27, 2017 REFERRING PHYSICIAN: Dr. Cyndee Wagoner The patient is an 82-year-old male with a history of hypertension, diabetes, now end-stage renal disease. Patient needs access for long-term hemodialysis. Currently, he has a temporary dialysis catheter. He is to be seen by intervention radiology for placement of permanent dialysis catheter. PAST MEDICAL HISTORY: As stated above. He has no complaints of shortness of breath at this time. PHYSICAL EXAMINATION GENERAL: The patient is awake and alert. VITAL SIGNS: Normal. HEENT: Unremarkable. Sclerae are nonicteric. NECK: Has no masses. There is a catheter in place. LUNGS: Equal breath sounds, but decreased at the bases bilaterally. CARDIAC: Regular rate and rhythm. ABDOMEN: Soft without tenderness. EXTREMITIES: There is mild diffuse edema. Radial pulses are weakly palpable bilaterally. Peripheral veins are marginal. ASSESSMENT: An 82-year-old male with end-stage renal disease. Needs access for long-term hemodialysis. PLAN: Schedule vein mapping of the left upper extremity, and then he is to have a tunneled dialysis catheter placed. Likely, AV fistula will be done next week. This was explained to the patient. Thank you for asking me to see Mr. Morgan. Job#: [id number] [facility]
[2017-12-27 08:00] VITALS: BP 169/73
[2017-12-27 09:00] VITALS: BP 169/73
[2017-12-27] MEDS: ATENOLOL 50 MG TAB PO SCH (09:00)
[2017-12-27] MEDS: ALLOPURINOL 300 MG TAB PO SCH (09:00)
[2017-12-27] MEDS: TAMSULOSIN HCL 0.4 MG CAP PO SCH (09:00)
[2017-12-27] MEDS: NPH, HUMAN INSULIN ISOPHANE 100 UNIT/1 ML 3ML VIAL SQ SCH ×2 (09:00→21:00)
[2017-12-27] MEDS: ISOSORBIDE MONONITRATE 30 MG TAB CR PO SCH (09:00)
--- NOTE | 2017-12-27 11:08 | Diagnostic Imaging Report ---
PROCEDURE:X-RAY ABDOMEN - KUB COMPARISON:KUB 10/31/17. INDICATIONS:nausea/vomiting FINDINGS: Exam is limited by body habitus. Contrast opacified the large bowel. There is a non-obstructed bowel-gas pattern. Extensive sigmoid diverticulosis is present. There are no calcifications projected over the renal shadows, expected course of the ureters or bladder. There are no acute osseous abnormalities. The lung bases are clear. CONCLUSION: No evidence of bowel obstruction. Extensive sigmoid diverticulosis. Dictated by: ANN DUEÑAS M.D. on 12/27/2017 at 11:15 Electronically approved by: ANN DUEÑAS M.D. on 12/27/2017 at 11:15
--- NOTE | 2017-12-27 11:28 | Diagnostic Imaging Report ---
PROCEDURE:GALLBLADDER ULTRASOUND COMPARISON:Report from CT abdomen 08/07/16, images not available for review. INDICATIONS:NAUSEA/VOMITTING FINDINGS: Study is limited by the patient's large body habitus. Multiple sagittal and axial images were obtained of the right upper quadrant of the abdomen. The liver is enlarged measuring 19.4 cm and demonstrates increased echogenicity. A simple appearing cyst in the right hepatic lobe measures up to 1.8 cm. The portal vein is patent with hepatopetal flow measuring 1.2 mm in diameter. The common bile duct is dilated measuring up to 1.2 cm near the pancreatic head. No definite stone is seen. The gallbladder is normal in appearance, without evidence for gallbladder stones or sludge. There is no gallbladder wall thickening or pericholecystic fluid. The sonographic Patel's sign is negative. The pancreas and aorta are not visualized due to overlying bowel gas. The right kidney measures 13.7 cm in length. There is increased echogenicity. No evidence of hydronephrosis or stone. There is a cystic lesion in the right kidney superior pole laterally measuring up to 4.9 cm which is predominately anechoic with some internal echotexture and punctate hyperechoic foci. An additional 3.8 x 2.5 x 4.9 cm complex heterogeneous echotexture lesion is noted in the right inferior pole medially. CONCLUSION: Dilated common bile duct measuring up to 1.2 cm near the pancreatic head. Given body habitus, unable to evaluate the pancreatic head. No definite stone is visualized. An MRI/MRCP may be considered for further evaluation. No sonographic evidence of cholecystitis. Hepatomegaly with hepatic steatosis. Complex heterogeneous mass in the right inferior pole kidney measuring up to 4.9 cm. 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 Additional minimally complex right upper pole renal cyst, a cyst at this location was noted on prior CT. However, images from CT on 08/07/16 were not available for review at the time of this dictation. Increased right renal echogenicity which could reflect medical renal disease. Dictated by: ANN DUEÑAS M.D. on 12/27/2017 at 11:35 Electronically approved by: ANN DUEÑAS M.D. on 12/27/2017 at 11:35
[2017-12-27] MEDS ORDERED: MIDAZOLAM HCL 2 MG/2 ML VIAL ONE (11:29)
[2017-12-27] MEDS ORDERED: LIDOCAINE HCL 2% LOCAL 20 ML VIAL ONE (11:30)
[2017-12-27] MEDS ORDERED: FENTANYL CITRATE/PF 100MCG/2 ML INJ ONE (11:30)
[2017-12-27] MEDS ORDERED: SODIUM CHLORIDE 0.9% 500ML 0 ML ONE (11:30)
[2017-12-27] MEDS: PROMETHAZINE 25MG/ NS 50ML (IV) IV PRN ×2 (13:01→17:40)
[2017-12-27] MEDS: LEVOFLOXACIN 500MG/D5W 100ML 100 ML IV SCH (15:18)
[2017-12-27 15:53] VITALS: BP 143/76
[2017-12-27 20:00] VITALS: BP 136/62
[2017-12-27 21:29] VITALS: BP 136/62
[2017-12-27] MEDS: VALSARTAN 80 MG TAB PO SCH (22:08)
[2017-12-28] MEDS ORDERED: PANTOPRAZOLE 40 MG 10ML VIAL IV STA (01:28)
[2017-12-28] MEDS: PROMETHAZINE 25MG/ NS 50ML (IV) IV PRN (01:43)
[2017-12-28 02:01] LABS: AMORPHOUS SEDIMENT,URINE FEW (FEW); BACTERIA,URINE RARE /HPF; BILIRUBIN,URINE NEGATIVE (NEGATIVE); CLARITY,URINE CLOUDY (CLEAR); COLOR,URINE YELLOW (YELLOW); KETONES,URINE NEGATIVE (NEGATIVE); LEUKOCYTE ESTERASE ,URINE TRACE (NEGATIVE); MUCUS,URINE FEW (RARE); NITRITE,URINE NEGATIVE (NEGATIVE); PROTEIN,URINE DIPSTICK 2+ (NEGATIVE); RBC,URINE 21-50 /HPF (0-5); URINE UROBILINOGEN 1 mg/dL (0.2 - 1)
[2017-12-28 04:45] VITALS: BP 160/72
[2017-12-28] MEDS: CITRIC ACID/SODIUM CITRATE 30 ML UDC PO SCH ×3 (06:00→21:23)
[2017-12-28] MEDS: LEVOTHYROXINE SODIUM 88 MCG TAB PO SCH (06:00)
[2017-12-28 06:33] LABS: ALANINE AMINOTRANSFERASE 23 IU/L (0-55); ALBUMIN/GLOBULIN RATIO 0.9 (0.8-2.0); ALKALINE PHOSPHATASE 70 IU/L (40-150); AMYLASE 24 U/L (25-125); BLOOD UREA NITROGEN 61 mg/dL (7-26); BUN/CREATININE RATIO 11 (6-25); CALCIUM 8.7 mg/dL (8.4-10.2); CARBON DIOXIDE 25 mmol/L (22-29); CHLORIDE 102 mmol/L (98-107); CREATININE, SERUM 5.31 mg/dL (0.72-1.25); EST GLOMERULAR FILTRATION RATE 10 ML/MIN (60-); GLUCOSE 146 mg/dL (74-118); SODIUM 143 mmol/L (136-145)
[2017-12-28 06:34] LABS: LIPASE < 4 U/L (8-78)
[2017-12-28] MEDS: INSULIN REGULAR, HUMAN 100 UNIT/1 ML 3ML VIAL SQ SCH ×3 (07:30→17:51)
[2017-12-28] MEDS ORDERED: HEPARIN SOD (PORCINE) 1000 UNIT/ML 30ML ONE (07:49)
[2017-12-28] MEDS ORDERED: LIDOCAINE HCL 2% LOCAL 20 ML VIAL ONE (07:49)
[2017-12-28] MEDS ORDERED: SODIUM CHLORIDE 0.9% 500ML 1,000 ML ONE (07:49)
[2017-12-28] MEDS ORDERED: FENTANYL CITRATE/PF 100MCG/2 ML INJ ONE (07:50)
[2017-12-28] MEDS ORDERED: MIDAZOLAM HCL 2 MG/2 ML VIAL ONE (07:50)
[2017-12-28 08:00] VITALS: BP 176/76
[2017-12-28] MEDS: NPH, HUMAN INSULIN ISOPHANE 100 UNIT/1 ML 3ML VIAL SQ SCH ×2 (09:00→20:36)
--- NOTE | 2017-12-28 09:33 | Progress Note ---
DATE: December 28, 2017 Patient did well overnight. No new complaints. OBJECTIVE VITAL SIGNS: Stable. He is afebrile. GENERAL: No apparent distress. CARDIOVASCULAR: Regular rate and rhythm. LUNGS: Clear to auscultation bilaterally. ABDOMEN: Good bowel sounds. Soft and nontender. EXTREMITIES: No clubbing or cyanosis. NEUROLOGIC: Nonfocal. ASSESSMENT AND PLAN 1. End-stage renal disease: Continue with current care per renal. 2. Diabetes: Continue with current care and monitoring. 3. Anemia: Continue to monitor. 4. Hypertension: Continue to monitor. Please see hospital chart for full details. Job#: [id number] RI
[2017-12-28] MEDS: PANTOPRAZOLE 40 MG 10ML VIAL IV SCH ×2 (10:00→20:34)
[2017-12-28] MEDS: ALLOPURINOL 300 MG TAB PO SCH (10:00)
[2017-12-28] MEDS: ISOSORBIDE MONONITRATE 30 MG TAB CR PO SCH (10:00)
[2017-12-28] MEDS: TAMSULOSIN HCL 0.4 MG CAP PO SCH (10:00)
[2017-12-28] MEDS: ATENOLOL 50 MG TAB PO SCH (10:00)
--- NOTE | 2017-12-28 11:43 | Diagnostic Imaging Report ---
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 Gaxiola Pre-operative diagnosis: Hyperkalemia, acute kidney injury Post-operative diagnosis: Hyperkalemia, acute kidney injury Conscious Sedation: None The patient's heart rate and pulse oximetry were continuously monitored by the [facility] nurse. Blood pressure was monitored at 5 minute intervals. Additional Medications: Lidocaine 1% for local anesthesia Fluoroscopy time: 0.3 minutes Frontal Air Kerma: 11.70 mGy Contrast used: None Estimated blood loss: Minimal Blood products administered: None Specimens: None Implants: 13 Belarusian 15 cm triple-lumen hi flow central venous catheter Complications: No immediate Condition at completion: Stable Disposition: Return to [facility] DISCUSSION: Informed consent was obtained and documented in the medical record after discussion of risks and benefits. The patient was placed in the supine position on the hospital bed. Preliminary sonographic evaluation confirmed patency of the right internal jugular vein, evidenced by compressibility. The right neck was prepped and draped in the standard sterile fashion. 1% lidocaine was infiltrated into the skin and subcutaneous tissues for local anesthesia. Then under continuous sonographic guidance, an 18-gauge singlewall needle was used to access the right internal jugular vein. A permanent sonographic image was stored in the medical record. A 0.0 3 5-in. wire was advanced centrally into the IVC under fluoroscopic guidance. The needle was removed over the wire and the tract was dilated. Then a 13 Belarusian, 15 cmtriple-lumen central venous catheter was advanced over the wire to full depth. The wire was removed, and the catheter tip was positioned at the low superior vena cava.. Each lumen showed adequate bidirectional flow and was flushed with sterile saline. The catheter was secured to the skin with monofilament nylon suture and a sterile dressing was applied. The patient tolerated the procedure well without immediate complication. FINDINGS: Patent right internal jugular vein IMPRESSION: Successful placement of a nontunneled hemodialysis catheter (13 Belarusian, 15 cm triple-lumen Trialysis) by a right internal jugular approach under sonographic and fluoroscopic guidance. Signed by: Dr. Ricardo Gaxiola M.D. on 12/24/2017 1:04 PM
[2017-12-28 12:00] VITALS: BP 129/64
[2017-12-28] MEDS: BALSAM PERU/CASTOR OIL 5 GM OINT...G. TP SCH (15:13)
[2017-12-28] MEDS: LEVOFLOXACIN 500MG/D5W 100ML 100 ML IV SCH (15:29)
[2017-12-28 16:00] VITALS: BP 138/62
[2017-12-28 20:00] VITALS: BP 141/79
[2017-12-28] MEDS: VALSARTAN 80 MG TAB PO SCH (20:34)
[2017-12-29] VITALS: BP 107/50
[2017-12-29 04:00] VITALS: BP 124/61
[2017-12-29] MEDS: CITRIC ACID/SODIUM CITRATE 30 ML UDC PO SCH ×3 (05:17→21:08)
[2017-12-29] MEDS: LEVOTHYROXINE SODIUM 88 MCG TAB PO SCH (05:17)
[2017-12-29 05:32] LABS: ANION GAP 18.7 mmol/L (8-16); CALCIUM 8.6 mg/dL (8.4-10.2); CREATININE, SERUM 4.82 mg/dL (0.72-1.25); POTASSIUM 4.7 mmol/L (3.5-5.1)
[2017-12-29 07:40] VITALS: BP 130/58
[2017-12-29 08:00] VITALS: BP 130/58
[2017-12-29] MEDS: NPH, HUMAN INSULIN ISOPHANE 100 UNIT/1 ML 3ML VIAL SQ SCH ×2 (08:00→20:57)
[2017-12-29] MEDS: INSULIN REGULAR, HUMAN 100 UNIT/1 ML 3ML VIAL SQ SCH ×3 (08:00→16:44)
[2017-12-29] MEDS: ISOSORBIDE MONONITRATE 30 MG TAB CR PO SCH (09:00)
[2017-12-29] MEDS: ATENOLOL 50 MG TAB PO SCH (09:00)
[2017-12-29] MEDS: PANTOPRAZOLE 40 MG 10ML VIAL IV SCH ×2 (09:00→20:53)
[2017-12-29] MEDS: ALLOPURINOL 300 MG TAB PO SCH (09:00)
[2017-12-29] MEDS: TAMSULOSIN HCL 0.4 MG CAP PO SCH (09:00)
[2017-12-29] MEDS: BALSAM PERU/CASTOR OIL 5 GM OINT...G. TP SCH (10:22)
[2017-12-29 16:00] VITALS: BP 124/62
[2017-12-29] MEDS: LEVOFLOXACIN 500MG/D5W 100ML 100 ML IV SCH (16:00)
[2017-12-29 20:00] VITALS: BP 109/53
[2017-12-29] MEDS: VALSARTAN 80 MG TAB PO SCH (20:53)
[2017-12-29] MEDS: PROMETHAZINE 25MG/ NS 50ML (IV) IV PRN (23:20)
[2017-12-30] VITALS (7 sets, daily range): BP systolic 96–158; BP diastolic 52–70
[2017-12-30] MEDS: LEVOTHYROXINE SODIUM 88 MCG TAB PO SCH (06:00)
[2017-12-30] MEDS: CITRIC ACID/SODIUM CITRATE 30 ML UDC PO SCH ×3 (06:00→21:20)
[2017-12-30 06:45] LABS: ANION GAP 19.4 mmol/L (8-16); CALCIUM 8.3 mg/dL (8.4-10.2); CREATININE, SERUM 6.69 mg/dL (0.72-1.25); POTASSIUM 4.4 mmol/L (3.5-5.1)
[2017-12-30] MEDS: INSULIN REGULAR, HUMAN 100 UNIT/1 ML 3ML VIAL SQ SCH ×3 (08:00→17:42)
[2017-12-30] MEDS: NPH, HUMAN INSULIN ISOPHANE 100 UNIT/1 ML 3ML VIAL SQ SCH ×2 (09:00→21:00)
[2017-12-30] MEDS: ALLOPURINOL 300 MG TAB PO SCH (09:00)
[2017-12-30] MEDS: TAMSULOSIN HCL 0.4 MG CAP PO SCH (09:00)
[2017-12-30] MEDS: ISOSORBIDE MONONITRATE 30 MG TAB CR PO SCH (09:00)
[2017-12-30] MEDS: PANTOPRAZOLE 40 MG 10ML VIAL IV SCH ×2 (09:00→21:00)
[2017-12-30] MEDS: ATENOLOL 50 MG TAB PO SCH (09:00)
[2017-12-30] MEDS: BALSAM PERU/CASTOR OIL 5 GM OINT...G. TP SCH (09:00)
[2017-12-30] MEDS: LEVOFLOXACIN 500MG/D5W 100ML 100 ML IV SCH (15:58)
[2017-12-30] MEDS: VALSARTAN 80 MG TAB PO SCH (21:00)
[2017-12-31] VITALS (8 sets, daily range): BP systolic 114–158; BP diastolic 56–79
[2017-12-31] MEDS: PROMETHAZINE 25MG/ NS 50ML (IV) IV PRN (00:15)
[2017-12-31] MEDS: LEVOTHYROXINE SODIUM 88 MCG TAB PO SCH (05:35)
[2017-12-31] MEDS: CITRIC ACID/SODIUM CITRATE 30 ML UDC PO SCH ×3 (05:35→21:09)
[2017-12-31 06:45] LABS: BASOPHILS % 0.3 % (0.0-1.0); EOSINOPHILS # (AUTO) 1.4 (0.0-0.4); EOSINOPHILS % 11.5 % (0.0-6.0); HEMATOCRIT 27.1 % (38.2-49.6); HEMOGLOBIN 8.7 g/dL (14.0-18.0); LYMPHOCYTES # (AUTO) 1.7 (1.0-3.2); LYMPHOCYTES % 13.4 % (18.0-39.1); MEAN CORPUSCULAR HEMOGLOBIN 28.2 pg (28-32); MEAN CORPUSCULAR HGB CONC 32.1 g/dL (31-35); MONOCYTES # (AUTO) 1.1 (0.2-0.8); MONOCYTES % 9.2 % (4.4-11.3); NEUTROPHILS % 64.8 % (38.7-80.0); PLATELET COUNT 118 x10e3/uL (140-360); RED BLOOD COUNT 3.08 x10e6/uL (4.3-5.7); RED CELL DISTRIBUTION WIDTH 16.3 % (11.7-14.4)
[2017-12-31 06:58] LABS: ANION GAP 20.6 mmol/L (8-16); CALCIUM 7.7 mg/dL (8.4-10.2); CREATININE, SERUM 7.46 mg/dL (0.72-1.25); POTASSIUM 4.6 mmol/L (3.5-5.1)
[2017-12-31] MEDS: TAMSULOSIN HCL 0.4 MG CAP PO SCH (09:25)
[2017-12-31] MEDS: PANTOPRAZOLE 40 MG 10ML VIAL IV SCH ×2 (09:25→21:09)
[2017-12-31] MEDS: BALSAM PERU/CASTOR OIL 5 GM OINT...G. TP SCH (09:25)
[2017-12-31] MEDS: ALLOPURINOL 300 MG TAB PO SCH (09:25)
[2017-12-31] MEDS: INSULIN REGULAR, HUMAN 100 UNIT/1 ML 3ML VIAL SQ SCH ×3 (09:25→17:30)
[2017-12-31] MEDS: NPH, HUMAN INSULIN ISOPHANE 100 UNIT/1 ML 3ML VIAL SQ SCH ×2 (09:26→21:09)
[2017-12-31] MEDS: ISOSORBIDE MONONITRATE 30 MG TAB CR PO SCH (14:53)
[2017-12-31] MEDS: LEVOFLOXACIN 500MG/D5W 100ML 100 ML IV SCH (14:53)
[2017-12-31] MEDS: ATENOLOL 50 MG TAB PO SCH (14:53)
[2017-12-31] MEDS: VALSARTAN 80 MG TAB PO SCH (21:09)
[2017-12-31] MEDS: ACETAMINOPHEN 325 MG TAB PO PRN (23:02)
[2018-01-01] VITALS (8 sets, daily range): BP systolic 103–148; BP diastolic 52–63
[2018-01-01] MEDS: CITRIC ACID/SODIUM CITRATE 30 ML UDC PO SCH ×3 (05:53→19:49)
[2018-01-01] MEDS: LEVOTHYROXINE SODIUM 88 MCG TAB PO SCH (05:53)
[2018-01-01] MEDS: INSULIN REGULAR, HUMAN 100 UNIT/1 ML 3ML VIAL SQ SCH ×3 (07:30→17:37)
[2018-01-01] MEDS: NPH, HUMAN INSULIN ISOPHANE 100 UNIT/1 ML 3ML VIAL SQ SCH ×2 (09:00→19:49)
[2018-01-01] MEDS: BALSAM PERU/CASTOR OIL 5 GM OINT...G. TP SCH (09:15)
[2018-01-01] MEDS: PANTOPRAZOLE 40 MG 10ML VIAL IV SCH ×2 (09:15→19:49)
--- NOTE | 2018-01-01 09:19 | Diagnostic Imaging Report ---
Procedure: Tunneled hemodialysis catheter placement. Medications: 1% lidocaine. The patient's vital signs, including pulse oximetry, were continuously monitored by the interventional radiology nurse. Fluoroscopy time: Not specified Estimated blood loss: Minimal. Complications: No immediate. Procedure in detail: Informed consent for the procedure was obtained from the patient after discussion of risks and benefits. The left neck and upper chest was prepped and draped in the standard sterile fashion after the patient was placed in the supine position on the fluoroscopic table. 1% lidocaine was administered into the skin and subcutaneous tissues of the right lower neck for local anesthesia. Then, under continuous sonographic guidance, a 21-gauge micropuncture needle was advanced into the left internal jugular vein. A 0.018 inch wire was advanced centrally under fluoroscopic guidance. The needle was then removed and access was secured with a micropuncture sheath. A 0.035 "Amplatz wire was then advanced through the micropuncture sheath and with the help of a 5 Jamaican Kumpe catheter the wire was manipulated into the inferior vena cava under fluoroscopic guidance. Attention was then turned to the right upper chest. A suitable catheter exit site was determined, approximately 3 fingerbreadths inferior to the clavicle. The skin was marked. 1% lidocaine was used to anesthetize a subcutaneous tract extending from the planned catheter exit site to the venotomy at the right lower neck. A stab incision was made on the right upper chest. Subsequently, the catheter was tunneled from the exit site of the right upper chest to the venotomy at the right lower neck. The retention cuff of the catheter was advanced well into the subcutaneous tunnel. The micropuncture sheath was then removed over the wire and the tract was serially dilated. Finally, a 16.5-Jamaican peel-away sheath was advanced over the wire under fluoroscopic guidance. The wire and inner dilator of the sheath were removed and 16 Jamaican Bard 23 cm long split tip HD catheter was advanced through the peel-away sheath. The catheter tip was positioned at the cavoatrial junction. Each catheter lumen showed good bidirectional flow. Each lumen was then packed with 2,000 units of heparin. The catheter was secured at the exit site on the right upper chest with 3-0 monofilament nylon suture. A 4-0 Vicryl pursestring suture was placed around the catheter at the entry side into the skin. The venotomy at the right lower neck was closed with two 4-0 interrupted Vicryl sutures. A sterile dressing was applied. The patient tolerated the procedure well without immediate complication. Impression: 1. Successful placement of a tunneled dual-lumen hemodialysis catheter (16-Jamaican, 23-cm tip-cuff length Bard split tip HD catheter). 2. The line is okay for immediate use. Signed by: Dr. Jacky Davis DO on 01/01/2018 9:16 AM
[2018-01-01] MEDS ORDERED: SODIUM CHLORIDE 0.9% 500ML 500 ML ONE (11:02)
[2018-01-01] MEDS ORDERED: HEPARIN SOD (PORCINE) 5,000 UNIT/ML VIAL ONE (12:00)
[2018-01-01] MEDS ORDERED: SODIUM CHLORIDE 0.9% 100 ML 0 ML ONE (12:00)
[2018-01-01] MEDS ORDERED: LEVOFLOXACIN 250MG/D5W 50ML 0 ML ONE (12:27)
[2018-01-01] MEDS ORDERED: LEVOFLOXACIN 500MG/D5W 100ML 100 ML IV SCH (15:00)
[2018-01-01] MEDS: TAMSULOSIN HCL 0.4 MG CAP PO SCH (15:06)
[2018-01-01] MEDS: ISOSORBIDE MONONITRATE 30 MG TAB CR PO SCH (15:06)
[2018-01-01] MEDS: ATENOLOL 50 MG TAB PO SCH (15:07)
[2018-01-01] MEDS: ALLOPURINOL 300 MG TAB PO SCH (15:07)
--- NOTE | 2018-01-01 16:18 | Operative Report ---
DATE OF PROCEDURE: January 01, 2018 PREOPERATIVE DIAGNOSIS: End-stage renal disease. POSTOPERATIVE DIAGNOSIS: End-stage renal disease. PROCEDURE: Creation of left arm primary arteriovenous fistula. 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 ANESTHESIA: General. INDICATIONS AND FINDINGS: The patient is an 82-year-old male with end-stage renal disease, needs access for long-term hemodialysis. At surgery there was an adequate cephalic vein in the antecubital area, a good pulse in the brachial artery. At the end of the procedure, there was a palpable thrill over the fistula, a palpable pulse in the brachial artery distal to the fistula. TECHNIQUE: After adequate general anesthesia, patient in the supine position, the left arm was prepped and draped in sterile fashion with Yuma solution. A transverse incision was made in the antecubital area and carried down through the subcutaneous tissue. Cephalic vein was identified, which was adequate caliber for a fistula, about 4 mm in diameter. It was dissected free proximally and distally. Side branches were ligated with hemoclips. More medially the incision was carried deeper, and the brachial artery was dissected free and controlled with a vessel loop. The cephalic vein was then divided as distally as possible, the distal portion ligated with hemoclips. The vein was fashioned appropriately. A number 3 Zoe catheter was passed through the vein and passed easily without resistance. The patient was given 5000 units of intravenous heparin. The brachial artery was clamped proximally and distally. Arteriotomy was made. Anastomosis was made between the end of the vein and the side of the artery with a running suture of 6-0 Prolene. Once flow was allowed through the fistula, there was a palpable thrill over the fistula, a palpable pulse in the brachial artery distal to the fistula. Hemostasis in the wound was seen to be adequate. The wound was then irrigated with saline, inspected for hemostasis, which was seen to be adequate. The wound was then closed with 3-0 Vicryl in the subcutaneous tissues and 4-0 Vicryl subcuticular to the skin. Sterile dressing was applied. The patient tolerated the procedure well. Estimated blood loss was 20 mL. There were no complications. All counts were correct. Patient was taken to the recovery room in satisfactory condition. Job#: [id number] EV
[2018-01-01] MEDS ORDERED: ONDANSETRON HCL INJ 2 MG/ML VIAL ONE (17:39)
[2018-01-01] MEDS ORDERED: DEXAMETHASONE SOD PHOS INJ 4 MG/ML VIAL ONE (17:39)
[2018-01-01] MEDS ORDERED: PROPOFOL IV EMULSION 10 MG/ML 20 ML VIAL ONE (17:39)
[2018-01-01] MEDS ORDERED: VASOPRESSIN INJ 20 UNIT/ML VIAL ONE (17:39)
[2018-01-01] MEDS ORDERED: SEVOFLURANE INHAL SOLN 250 ML PEN BTL ONE (17:39)
[2018-01-01] MEDS ORDERED: LIDOCAINE HCL 2% LOCAL INJ 5 ML SDV VIAL INJ ONE (17:39)
[2018-01-01] MEDS ORDERED: PHENYLEPHRINE HCL 1% 10 MG/ML VIAL ONE (17:39)
[2018-01-01] MEDS ORDERED: FENTANYL CITRATE/PF 100MCG/2 ML INJ ONE (18:04)
[2018-01-01] MEDS: VALSARTAN 80 MG TAB PO SCH (19:49)
[2018-01-02] VITALS (7 sets, daily range): BP systolic 107–166; BP diastolic 51–97
[2018-01-02] MEDS: LEVOTHYROXINE SODIUM 88 MCG TAB PO SCH (06:00)
[2018-01-02] MEDS: INSULIN REGULAR, HUMAN 100 UNIT/1 ML 3ML VIAL SQ SCH ×3 (07:50→16:30)
[2018-01-02] MEDS: ISOSORBIDE MONONITRATE 30 MG TAB CR PO SCH (08:22)
[2018-01-02] MEDS: ATENOLOL 50 MG TAB PO SCH (08:22)
[2018-01-02] MEDS: TAMSULOSIN HCL 0.4 MG CAP PO SCH (08:22)
[2018-01-02] MEDS: PANTOPRAZOLE 40 MG 10ML VIAL IV SCH ×2 (08:22→21:00)
[2018-01-02] MEDS: ALLOPURINOL 300 MG TAB PO SCH (08:22)
[2018-01-02] MEDS: NPH, HUMAN INSULIN ISOPHANE 100 UNIT/1 ML 3ML VIAL SQ SCH ×2 (08:23→21:02)
[2018-01-02] MEDS: BALSAM PERU/CASTOR OIL 5 GM OINT...G. TP SCH (08:25)
[2018-01-02] MEDS: CITRIC ACID/SODIUM CITRATE 30 ML UDC PO SCH ×2 (14:00→21:02)
[2018-01-02] MEDS ORDERED: HEPARIN SOD (PORCINE) 1000 UNIT/ML SDV INJ PRN ×2 (15:15→15:30)
[2018-01-02 15:22] LABS: HEMATOCRIT 26.8 % (38.2-49.6); HEMOGLOBIN 8.8 g/dL (14.0-18.0); MEAN CORPUSCULAR HEMOGLOBIN 28.4 pg (28-32); MEAN CORPUSCULAR HGB CONC 32.8 g/dL (31-35); MEAN CORPUSCULAR VOLUME 86.5 fL (81-99); PLATELET COUNT 148 x10e3/uL (140-360)
[2018-01-02 15:42] LABS: ANION GAP 21.9 mmol/L (8-16); CALCIUM 8.5 mg/dL (8.4-10.2); CREATININE, SERUM 7.55 mg/dL (0.72-1.25); POTASSIUM 4.9 mmol/L (3.5-5.1)
[2018-01-02 16:06] LABS: EOSINOPHILS % (MANUAL) 2 % (0-7); HYPOCHROMASIA MODERATE; LYMPHOCYTES % (MANUAL) 11 % (19-48); MONOCYTES % (MANUAL) 9 % (3.4-9.0); NEUTROPHILS % (MANUAL) 76 % (40-74); PLATELET ESTIMATE ADEQUATE; PLATELET MORPHOLOGY COMMENT NORMAL; RBC MORPHOLOGY COMMENT NORMAL
[2018-01-02] MEDS: LEVOFLOXACIN 250MG/D5W 50ML 50 ML IV SCH (21:00)
[2018-01-02] MEDS: VALSARTAN 80 MG TAB PO SCH (21:00)
[2018-01-02] MEDS: HYDROCODONE/APAP 5MG-325MG TAB PO PRN (22:42)
[2018-01-03] VITALS (7 sets, daily range): BP systolic 70–145; BP diastolic 44–68
[2018-01-03] MEDS: MORPHINE SULFATE INJ 4 MG/ML INJ IV PRN (02:54)
[2018-01-03] MEDS: CITRIC ACID/SODIUM CITRATE 30 ML UDC PO SCH ×3 (05:20→21:13)
[2018-01-03] MEDS: LEVOTHYROXINE SODIUM 88 MCG TAB PO SCH (05:20)
[2018-01-03] MEDS: INSULIN REGULAR, HUMAN 100 UNIT/1 ML 3ML VIAL SQ SCH ×3 (07:52→16:40)
[2018-01-03] MEDS: PANTOPRAZOLE 40 MG 10ML VIAL IV SCH ×2 (08:40→21:12)
[2018-01-03] MEDS: TAMSULOSIN HCL 0.4 MG CAP PO SCH (08:40)
[2018-01-03] MEDS: ISOSORBIDE MONONITRATE 30 MG TAB CR PO SCH (08:40)
[2018-01-03] MEDS: BALSAM PERU/CASTOR OIL 5 GM OINT...G. TP SCH (08:41)
[2018-01-03] MEDS: ALLOPURINOL 300 MG TAB PO SCH (08:41)
[2018-01-03] MEDS: ATENOLOL 50 MG TAB PO SCH (08:54)
[2018-01-03] MEDS: NPH, HUMAN INSULIN ISOPHANE 100 UNIT/1 ML 3ML VIAL SQ SCH ×2 (08:55→21:13)
[2018-01-03] MEDS: LEVOFLOXACIN 250MG/D5W 50ML 50 ML IV SCH (15:22)
[2018-01-03] MEDS: ACETAMINOPHEN 325 MG TAB PO PRN (15:22)
[2018-01-03] MEDS: VALSARTAN 80 MG TAB PO SCH (21:00)
[2018-01-04] VITALS (9 sets, daily range): BP systolic 103–171; BP diastolic 50–69
[2018-01-04] MEDS: LEVOTHYROXINE SODIUM 88 MCG TAB PO SCH (05:47)
[2018-01-04] MEDS: CITRIC ACID/SODIUM CITRATE 30 ML UDC PO SCH ×3 (05:47→21:47)
[2018-01-04] MEDS: NPH, HUMAN INSULIN ISOPHANE 100 UNIT/1 ML 3ML VIAL SQ SCH ×2 (07:30→21:47)
[2018-01-04] MEDS: INSULIN REGULAR, HUMAN 100 UNIT/1 ML 3ML VIAL SQ SCH ×3 (07:30→17:57)
[2018-01-04] MEDS: ALLOPURINOL 300 MG TAB PO SCH (09:31)
[2018-01-04] MEDS: TAMSULOSIN HCL 0.4 MG CAP PO SCH (09:31)
[2018-01-04] MEDS: BETAMETHASONE/CLOTRIMAZOLE CR 15 GM TUBE TOP SCH ×2 (09:31→17:36)
[2018-01-04] MEDS: BALSAM PERU/CASTOR OIL 5 GM OINT...G. TP SCH (09:31)
[2018-01-04] MEDS: PANTOPRAZOLE 40 MG 10ML VIAL IV SCH ×2 (09:31→21:46)
[2018-01-04 09:52] LABS: BASOPHILS # (AUTO) 0.1 (0.0-0.1); BASOPHILS % 0.6 % (0.0-1.0); EOSINOPHILS # (AUTO) 0.7 (0.0-0.4); HEMATOCRIT 29.7 % (38.2-49.6); HEMOGLOBIN 9.3 g/dL (14.0-18.0); LYMPHOCYTES # (AUTO) 1.6 (1.0-3.2); LYMPHOCYTES % 13.4 % (18.0-39.1); MEAN CORPUSCULAR HEMOGLOBIN 27.8 pg (28-32); MEAN CORPUSCULAR HGB CONC 31.3 g/dL (31-35); MEAN CORPUSCULAR VOLUME 88.9 fL (81-99); MONOCYTES # (AUTO) 1.4 (0.2-0.8); MONOCYTES % 11.5 % (4.4-11.3); NEUTROPHILS # (AUTO) 8.3 (2.1-6.9); NEUTROPHILS % 67.5 % (38.7-80.0); PLATELET COUNT 138 x10e3/uL (140-360); RED BLOOD COUNT 3.34 x10e6/uL (4.3-5.7)
[2018-01-04 10:13] LABS: ANION GAP 23.2 mmol/L (8-16); CALCIUM 8.8 mg/dL (8.4-10.2); CREATININE, SERUM 7.37 mg/dL (0.72-1.25); POTASSIUM 5.2 mmol/L (3.5-5.1)
[2018-01-04] MEDS: EPOETIN ALFA 10000 UNIT/ML VIAL SC SCH (13:09)
[2018-01-04] MEDS: ISOSORBIDE MONONITRATE 30 MG TAB CR PO SCH (17:52)
[2018-01-04] MEDS: LEVOFLOXACIN 250MG/D5W 50ML 50 ML IV SCH (17:52)
[2018-01-04] MEDS: ATENOLOL 50 MG TAB PO SCH (17:52)
[2018-01-04] MEDS: VALSARTAN 80 MG TAB PO SCH (21:47)
[2018-01-04] MEDS: ACETAMINOPHEN 325 MG TAB PO PRN (23:09)
[2018-01-05] VITALS (9 sets, daily range): BP systolic 84–149; BP diastolic 45–68
[2018-01-05] MEDS: CITRIC ACID/SODIUM CITRATE 30 ML UDC PO SCH ×3 (06:07→21:48)
[2018-01-05] MEDS: LEVOTHYROXINE SODIUM 88 MCG TAB PO SCH (06:07)
[2018-01-05] MEDS: ONDANSETRON HCL INJ 2 MG/ML VIAL IV PRN (06:07)
[2018-01-05] MEDS: MORPHINE SULFATE INJ 4 MG/ML INJ IV PRN (06:07)
[2018-01-05] MEDS: ISOSORBIDE MONONITRATE 30 MG TAB CR PO SCH (09:42)
[2018-01-05] MEDS: TAMSULOSIN HCL 0.4 MG CAP PO SCH (09:42)
[2018-01-05] MEDS: PANTOPRAZOLE 40 MG 10ML VIAL IV SCH ×2 (09:42→20:51)
[2018-01-05] MEDS: ATENOLOL 50 MG TAB PO SCH (09:43)
[2018-01-05] MEDS: BETAMETHASONE/CLOTRIMAZOLE CR 15 GM TUBE TOP SCH ×2 (09:43→17:26)
[2018-01-05] MEDS: INSULIN REGULAR, HUMAN 100 UNIT/1 ML 3ML VIAL SQ SCH ×3 (09:43→17:36)
[2018-01-05] MEDS: BALSAM PERU/CASTOR OIL 5 GM OINT...G. TP SCH (09:43)
[2018-01-05] MEDS: ALLOPURINOL 300 MG TAB PO SCH (09:43)
[2018-01-05] MEDS: NPH, HUMAN INSULIN ISOPHANE 100 UNIT/1 ML 3ML VIAL SQ SCH ×2 (09:44→20:52)
[2018-01-05] MEDS: PROMETHAZINE 25MG/ NS 50ML (IV) IV PRN (11:50)
[2018-01-05] MEDS: LEVOFLOXACIN 250MG/D5W 50ML 50 ML IV SCH (14:53)
[2018-01-05] MEDS: VALSARTAN 80 MG TAB PO SCH (20:52)
[2018-01-06] VITALS (8 sets, daily range): BP systolic 100–138; BP diastolic 50–64
[2018-01-06] MEDS: CITRIC ACID/SODIUM CITRATE 30 ML UDC PO SCH ×3 (05:44→21:30)
[2018-01-06] MEDS: LEVOTHYROXINE SODIUM 88 MCG TAB PO SCH (05:44)
[2018-01-06] MEDS: INSULIN REGULAR, HUMAN 100 UNIT/1 ML 3ML VIAL SQ SCH ×3 (08:47→16:30)
[2018-01-06] MEDS: NPH, HUMAN INSULIN ISOPHANE 100 UNIT/1 ML 3ML VIAL SQ SCH ×2 (08:47→20:47)
[2018-01-06] MEDS: PANTOPRAZOLE 40 MG 10ML VIAL IV SCH ×2 (08:47→20:46)
[2018-01-06] MEDS: ALLOPURINOL 300 MG TAB PO SCH (09:40)
[2018-01-06] MEDS: ISOSORBIDE MONONITRATE 30 MG TAB CR PO SCH (09:40)
[2018-01-06] MEDS: TAMSULOSIN HCL 0.4 MG CAP PO SCH (09:40)
[2018-01-06] MEDS: ATENOLOL 50 MG TAB PO SCH (09:40)
[2018-01-06] MEDS: BALSAM PERU/CASTOR OIL 5 GM OINT...G. TP SCH (09:40)
[2018-01-06] MEDS: BETAMETHASONE/CLOTRIMAZOLE CR 15 GM TUBE TOP SCH ×2 (09:40→17:50)
[2018-01-06] MEDS: LEVOFLOXACIN 250MG/D5W 50ML 50 ML IV SCH (14:48)
[2018-01-06] MEDS: VALSARTAN 80 MG TAB PO SCH (20:46)
[2018-01-06] MEDS: ACETAMINOPHEN 325 MG TAB PO PRN (21:30)
--- NOTE | 2018-01-06 22:06 | Consultation ---
DATE OF CONSULTATION: January 06, 2018 REFERRING PHYSICIAN: Dr. Dima Pace First of all, I would like to thank Dr. Pace for asking me to see Mr. Morgan in consultation. REASON FOR CONSULTATION: 1. Debility. 2. Aspiration pneumonia. 3. End-stage renal disease, status post AV fistula placement. 4. Obstructive sleep apnea. 5. Obesity. 6. Diabetes. 7. Hypertension. HISTORY: Patient is a pleasant but unfortunate 82-year-old male, who has obstructive sleep apnea, who has had multiple episodes of recurrent aspiration pneumonia, who comes into this facility for dysphagia. Also underwent workup and was found to have end-stage renal disease and has tunneled cath, but also had AV fistula done. He has had regression in his overall functional level. I am being asked to evaluate for rehab needs. PAST MEDICAL HISTORY: Includes CKD, sleep apnea, aspiration pneumonitis, diabetes, hypertension, lymphedema. SURGERIES: Include AV fistula placement and back surgeries. ALLERGIES: CEFTRIAXONE. FAMILY HISTORY: Brother had a heart disease. REVIEW OF SYSTEMS: GENERAL: No fevers or chills. EYES: Denies. EARS: Denies. ORAL: Denies. NECK: Denies. CARDIAC: Denies. LUNGS: As above. He has obstructive sleep apnea. ABDOMEN: Nontender. Abdominal pain. NEUROLOGIC: He is pretty much in electric wheelchair, but he can walk short distances at home. SENSORY-US: Denies. LABS: White cell count 12.2, hemoglobin 9.3, hematocrit 29.7, platelets of 138,000. Blood sugar is 270. He had KUB, which showed no evidence of bowel obstruction, extensive sigmoid diverticulitis. He had a modified barium swallow, which showed intermittent aspiration on thin liquids. He had a chest x-ray, which showed no consolidation or edema, no effusion or pneumothorax. SOCIAL HISTORY: Lives with his in a one-story home. He is in the wheelchair. At one point, they went to an inpatient rehab facility about a year ago and he was up walking up to 200 feet but, he regressed ever since he left. Basically, sounds like he did not have a place to ambulate and they did not get a whole lot of therapy following that. He is able to transfer to the electric wheelchair on his own pretty much up until recently. PHYSICAL EXAMINATION: GENERAL: Patient is awake, alert, very pleasant. EYES: Extraocular muscles are intact. ORAL: Tongue is midline. NECK: Supple. HEART: Regular. LUNGS: Diminished breath sounds. ABDOMEN: Obese. Bowel sounds heard. I palpated the abdomen, nontender. EXTREMITIES: Limited range of motion of the left upper extremity secondary to recent AV fistula formation, but he is weak overall, but has little bit more strength in the arms. In the legs, he is little bit stronger in right leg compared to left leg. He has limited active movement to the leg, hips, and knees and he dorsiflexes and plantarflexes with limitations as well. With regards to manual muscle testing, right upper extremity shoulder flexion and extension, elbow flexion and extension and adjunct instructor essentially 4- to 4/5 strength. In the left upper extremity, shoulder flexion and extension is 2/5 strength within achievable range of motion, elbow flexion and extension was not tested, but adjunct instructor was 3+/5 strength on the left. In the right lower extremity within a very limited range of motion, hip and knee flexion and extension was pretty much 3+/5 strength on the right leg. In the left leg, however, it is 3/5 strength, and ankle dorsiflexion and plantarflexion is 2/5 strength at this time. IMPRESSION: 1. Debilitation secondary to multiple medical issues. 2. Recurrent aspiration pneumonitis. 3. End-stage renal disease, now on dialysis. 4. Obstructive sleep apnea. 5. History of diabetes. 6. Hypertension. PLAN: Patient will make an excellent inpatient rehab candidate, could benefit from multidisciplinary inpatient rehab program to optimize functional level. Will work on transfer to rehab. PRECAUTIONS: Falls. Plan of care discussed with and patient. Thank you once again for allowing me to participate in the care of this pleasant patient. Job#: [id number]
[2018-01-06] MEDS: HYDROCODONE/APAP 5MG-325MG TAB PO PRN (23:07)
[2018-01-07] VITALS: BP 125/58
[2018-01-07 04:00] VITALS: BP 107/51
[2018-01-07] MEDS: LEVOTHYROXINE SODIUM 88 MCG TAB PO SCH (06:11)
[2018-01-07] MEDS: CITRIC ACID/SODIUM CITRATE 30 ML UDC PO SCH ×2 (06:11→15:00)
[2018-01-07 07:38] VITALS: BP 141/63
[2018-01-07] MEDS: INSULIN REGULAR, HUMAN 100 UNIT/1 ML 3ML VIAL SQ SCH ×3 (08:30→16:30)
[2018-01-07] MEDS: NPH, HUMAN INSULIN ISOPHANE 100 UNIT/1 ML 3ML VIAL SQ SCH (09:00)
[2018-01-07] MEDS: ALLOPURINOL 300 MG TAB PO SCH (09:00)
[2018-01-07] MEDS: ISOSORBIDE MONONITRATE 30 MG TAB CR PO SCH (09:00)
[2018-01-07] MEDS: BETAMETHASONE/CLOTRIMAZOLE CR 15 GM TUBE TOP SCH ×2 (09:00→17:00)
[2018-01-07] MEDS: TAMSULOSIN HCL 0.4 MG CAP PO SCH (09:00)
[2018-01-07] MEDS: ATENOLOL 50 MG TAB PO SCH (09:00)
[2018-01-07] MEDS: BALSAM PERU/CASTOR OIL 5 GM OINT...G. TP SCH (09:00)
[2018-01-07] MEDS: PANTOPRAZOLE 40 MG 10ML VIAL IV SCH (09:00)
[2018-01-07 11:44] VITALS: BP 104/48
[2018-01-07] MEDS ORDERED: LEVOFLOXACIN 250 MG TAB PO SCH (14:30)
[2018-01-07] MEDS: EPOETIN ALFA 10000 UNIT/ML VIAL SC SCH (15:00)
[2018-01-07 15:50] VITALS: BP 122/56
[2018-01-07] MEDS: HYDROCODONE/APAP 5MG-325MG TAB PO PRN (16:30)
[2018-01-08] MEDS ORDERED: PANTOPRAZOLE SOD 40 MG TABEC PO SCH (07:30)
--- OUTSIDE RECORDS SUMMARY | 2018-01-15 05:44 | XMS REPORT ---
Author Author [facility] Address Unknown Phone Unavailable Care Team Providers Care Network Admin Name Role Phone WELLINGTON ALSTON Unavailable Unavailable DESHAUN RASCON Unavailable Unavailable RADHA BRICE Unavailable Unavailable AVILA HAMILTON Unavailable Unavailable Problems This patient has no known problems. Allergies, Adverse Reactions, Alerts This patient has no known allergies or adverse reactions. Medications This patient has no known medications. 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 Medications: 1% lidocaine. The patient's vital signs, including pulse oximetry, were continuously monitored by the interventional radiology nurse. Fluoroscopy time: Not specified Estimated blood loss: Minimal. Complications: No immediate. Procedure in detail: Informed consent for the procedure was obtained from the patient after discussion of risks and benefits. The left neck and upper chest was prepped and draped in the standard sterile fashion after the patient was placed in the supine position on the fluoroscopic table. 1% lidocaine was administered into the skin and subcutaneous tissues of the right lower neck for local anesthesia. Then, under continuous sonographic guidance, a 21-gauge micropuncture needle was advanced into the left internal jugular vein. A 0.018 inch wire was advanced centrally under fluoroscopic guidance. The needle was then removed and access was secured with a micropuncture sheath. A 0.035 "Amplatz wire was then advanced through the micropuncture sheath and with the help of a 5 Italian Kumpe catheter the wire was manipulated into the inferior vena cava under fluoroscopic guidance. Attention was then turned to the right upper chest. A suitable catheter exit site was determined, approximately 3 fingerbreadths inferior to the clavicle. The skin was marked. 1% lidocaine was used to anesthetize a subcutaneous tract extending from the planned catheter exit site to the venotomy at the right lower neck. A stab incision was made on the right upper chest. Subsequently, the catheter was tunneled from the exit site of the right upper chest to the venotomy at the right lower neck. The retention cuff of the catheter was advanced well into the subcutaneous tunnel. The micropuncture sheath was then removed over the wire and the tract was serially dilated. Finally, a 16.5-Italian peel-away sheath was advanced over the wire under fluoroscopic guidance. The wire and inner dilator of the sheath were removed and 16 Italian Bard 23 cm long split tip HD catheter was advanced through the peel-away sheath. The catheter tip was positioned at the c avoatrial junction. Each catheter lumen showed good bidirectional flow. Each lumen was then packed with 2,000 units of heparin. The catheter was secured at the exit site on the right upper chest with 3-0 monofilament nylon suture. A 4-0 Vicryl pursestring suture was placed around the catheter at the entry side into the skin. The venotomy at the right lower neck was closed with two 4-0 interrupted Vicryl sutures. A sterile dressing was applied. The patient tolerated the procedure well without immediate complication. Impression: 1. Successful placement of a tunneled dual-lumen hemodialysis catheter (16-Italian, 23-cm tip-cuff length Bard split tip HD catheter). 2. The line is okay for immediate use. Signed by: Dr. Jacky Coelho DO on 01/01/2018 9:16 AM Dictated By: JACKY COELHO DO 5 Transcribed By: SALVADOR on 01/01/18915 COPY TO: FE HERNANDEZ GALLBLADDER 2017-12-27 11:35:00 [place] [address] Patient Name: ARY ALEJO MR #: [id number] : 1935 Age/Sex: 82/M Req #: [id number] Adm Physician: WELLINGTON ALSTON MD Ordered by: MARY WELLS, FE WELLS Report #: [id number] Location: [facility] Room/Bed: [place] [address] Procedure: [id number] US/US GALLBLADDER Exam Date: Exam Time: REPORT STATUS: Signed PROCEDURE: GALLBLADDER ULTRASOUND COMPARISON: Report from CT abdomen 08/07/16, images not available for review. INDICATIONS: NAUSEA/VOMITTING FINDINGS: Study is limited by the patient's large body habitus. Multiple sagittal and axial images were obtained of the right upper quadrant of the abdomen. The liver is enlarged measuring 19.4 cm and demonstrates increased echogenicity. A simple appearing cyst in the right hepatic lobe measures up to 1.8 cm. The portal vein is patent with hepatopetal flow measuring 1.2 mm in diameter. The common bile duct is dilated measuring up to 1.2 cm near the pancreatic head. No definite stone is seen. The gallbladder is normal in appearance, without evidence for gallbladder stones or sludge. There is no gallbladder wall thickening or pericholecystic fluid. The sonographic Patel's sign is negative. The pancreas and aorta are not visualized due to overlying bowel gas. The right kidney measures 13.7 cm in length. There is increased echogenicity. No evidence of hydronephrosis or stone. There is a cystic lesion in the right kidney superior pole laterally measuring up to 4.9 cm which is predominately anechoic with some internal echotexture and punctate hyperechoic foci. An additional 3.8 x 2.5 x 4.9 cm complex heterogeneous echotexture lesion is noted in the right inferior pole medially. CONCLUSION: Dilated common bile duct measuring up to 1.2 cm near the pancreatic head. Given body habitus, unable to evaluate the pancreatic head. No definite stone is visualized. An MRI/MRCP may be considered for further evaluation. No sonographic evidence of cholecystitis. Hepatomegaly with hepatic steatosis. Complex heterogeneous mass in the right inferior pole kidney measuring up to 4.9 cm. 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 Additional minimally complex right upper pole renal cyst, a cyst at this location was noted on prior CT. However, images from CT on 08/07/16 were not available for review at the time of this dictation. Increased right renal echogenicity which could reflect medical renal disease. Dictated by: ANN DUEÑAS M.D. on 12/27/2017 at 11:35 Electronically approved by: ANN DUEÑAS M.D. on 12/27/2017 at 11:35 Dictated By: ANN DUEÑAS MD 1135 Transcribed By: LAURITA on 12/27/17 1135 COPY TO: FE HERNANDEZ [facility] (KUB) 2017-12-27 11:15:00 [place] [address] Patient Name: ARY ALEJO MR #: [id number] : 1935 Age/Sex: 82/M Req #: [id number] Adm Physician: WELLINGTON ALSTON MD Ordered by: FE HERNANDEZ MD, MD Report #: [id number] Location: [facility] Room/Bed: [place] [address] Procedure: [id number] DX/ABDOMEN-1VIEW (KUB) Exam Date: 12/27/17 Exam Time: 09 REPORT STATUS: Signed PROCEDURE: X-RAY ABDOMEN - KUB COMPARISON: KUB 10/31/17. INDICATIONS: nausea/vomiting FINDINGS: Exam is limited by body habitus. Contrast opacified the large bowel. There is a non-obstructed bowel-gas pattern. Extensive sigmoid diverticulosis is present. There are no calcifications projected over the renal shadows, expected course of the ureters or bladder. There are no acute osseous abnormalities. The lung bases are clear. CONCLUSION: No evidence of bowel obstruction. Extensive sigmoid diverticulosis. Dictated by: ANN DUEÑAS M.D. on 12/27/2017 at 11:15 Electronically approved by: ANN DUEÑAS M.D. on 12/27/2017 at 11:15 Dictated By: ANN DUEÑAS MD 1115 Transcribed By: LAURITA on 12/27/17 1115 COPY TO: FE HERNANDEZ BA. SWALLOW 2017-12-25 09:17:00 [place] [address] Patient Name: ARY ALEJO MR #: [id number] : 1935 Age/Sex: 82/M Req #: [id number] Adm Physician: WELLINGTON ALSTON MD Ordered by: TRICE HADLEY MD Report #: [id number] Location: [facility] Room/Bed: [place] [address] Procedure: DX/MODIFIED BA. SWALLOW Exam Date: 12/24/17 Exam Time: 1446 REPORT STATUS: Signed Exam: Modified barium swallow History: Past medical history of recurrent aspiration pneumonia. Comparison: None available Findings: Study was performed in conjunction with speech pathology. Patient was administered multiple different consistencies of barium impregnated liquids and solids with fluoroscopic recording. There was intermittent aspiration of thin liquids with a delayed clearing cough. Please see the full report provided by speech pathology. Fluoroscopy time: 59 seconds Cumulative area dose product: 943.29 cGycm2 Impression: Intermittent aspiration with thin liquids. Signed by: Dr. Jacky Coelho DO on 12/25/2017 9:21 AM Dictated By: JACKY COELHO DO 0 Transcribed By: SALVADOR on 12/25/17920 COPY TO: TRICE HADLEY MD IR CONSULT 2017-12-24 13:00:00 [place] [address] Patient Name: ARY ALEJO MR #: [id number] : 1935 Age/Sex: 82/M Req #: [id number] [facility] Physician: WELLINGTON ALSTON MD Ordered by: MARY WELLS, FE WELLS Report #: [id number] Location: MED/SURG3 Room/Bed: [facility] Procedure: [id number] DX/IR CONSULT Exam Date: Exam Time: REPORT STATUS: Signed Date and Time: 12/24/2017 Procedure: Right internal jugular temporary hemodialysis catheter placement yard switch operator: Dr. Gaxiola Pre-operative diagnosis: Hyperkalemia, acute kidney injury Post-operative diagnosis: Hyperkalemia, acute kidney injury Conscious Sedation: None The patient's heart rate and pulse oximetry were continuously monitored by the IMCU nurse. Blood pressure was monitored at 5 minute intervals. Additional Medications: Lidocaine 1% for local anesthesia Fluoroscopy time: 0.3 minutes Frontal Air Kerma: 11.70 mGy Contrast used: None Estimated blood loss: Minimal Blood products administered: None Specimens: None Implants: 13 Italian 15 cm triple-lumen hi flow central venous catheter Complications: No immediate Condition at completion: Stable Disposition: Return to [facility] DISCUSSION: Informed consent was obtained and documented in the medical record after discussion of risks and benefits. The patient was placed in the supine position on the hospital bed. Preliminary sonographic evaluation confirmed patency of the right internal jugular vein, evidenced by compressibility. The right neck was prepped and draped in the standard sterile fashion. 1% lidocaine was infiltrated into the skin and subcutaneous tissues for local anesthesia. Then under continuous sonographic guidance, an 18-gauge singlewall needle was used to access the right internal jugular vein. A permanent sonographic image was stored in the medical record. A 0.0 3 5-in. wire was advanced centrally into the IVC under fluoroscopic guidance. The needle was removed over the wire and the tract was dilated. Then a 13 Italian, 15 cmtriple-lumen central venous catheter was advanced over the wire to full depth. The wire was removed, and the catheter tip was positioned at the low superior vena cava.. Each lumen showed adequate bidirectional flow and was flushed with sterile saline. The catheter was secured to the skin with monofilament nylon suture and a sterile dressing was applied. The patient tolerated the procedure well without immediate complication. FINDINGS: Patent right internal jugular vein IMPRESSION: Successful placement of a nontunneled hemodialysis catheter (13 Italian, 15 cm triple-lumen Trialysis) by a right internal jugular approach under sonographic and fluoroscopic guidance. Signed by: Dr. Uriah Gaxiola M.D. on 12/24/2017 1:04 PM Dictated By: URIAH GAXIOLA MD 1141 Transcribed By: SALVADOR on 12/28/17 1141 COPY TO: FE HERNANDEZ GUIDANCE FOR PROCEDURE 2017-12-24 13:00:00 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 Gaxiola Pre-operative diagnosis: Hyperkalemia, acute kidney injury Post-operative diagnosis: Hyperkalemia, acute kidney injury Conscious Sedation: None The patient's heart rate and pulse oximetry were continuously monitored by the IMCU nurse. Blood pressure was monitored at 5 minute intervals. Additional Medications: Lidocaine 1% for local anesthesia Fluoroscopy time: 0.3 minutes Frontal Air Kerma: 11.70 mGy Contrast used: None Estimated blood loss: Minimal Blood products administered: None Specimens: None Implants: 13 Italian 15 cm triple-lumen hi flow central venous catheter Complications: No immediate Condition at completion: Stable Disposition: Return to [facility] DISCUSSION: Informed consent was obtained and documented in the medical record after discussion of risks and benefits. The patient was placed in the supine position on the hospital bed. Preliminary sonographic evaluation confirmed patency of the right internal jugular vein, evidenced by compressibility. The right neck was prepped and draped in the standard sterile fashion. 1% lidocaine was infiltrated into the skin and subcutaneous tissues for local anesthesia. Then under continuous sonographic guidance, an 18-gauge singlewall needle was used to access the right internal jugular vein. A permanent sonographic image was stored in the medical record. A 0.0 3 5-in. wire was advanced centrally into the IVC under fluoroscopic guidance. The needle was removed over the wire and the tract was dilated. Then a 13 Italian, 15 cmtriple-lumen central venous catheter was advanced over the wire to full depth. The wire was removed, and the catheter tip was positioned at the low superior vena cava.. Each lumen showed adequate bidirectional flow and was flushed with sterile saline. The catheter was secured to the skin with monofilament nylon suture and a sterile dressing was applied. The patient tolerated the procedure well without immediate complication. FINDINGS: Patent right internal jugular vein IMPRESSION: Successful placement of a nontunneled hemodialysis catheter (13 Italian, 15 cm triple-lumen Trialysis) by a right internal jugular approach under sonographic and fluoroscopic guidance. Signed by: Dr. Uriah Gaxiola M.D. on 12/24/2017 1:04 PM Dictated By: URIAH GAXIOLA MD 1141 Transcribed By: SALVADOR on 12/28/17 1141 COPY TO: FE HERNANDEZ NON-TUNNELLED CVC CATH PLACNCT 2017-12-24 13:00:00 [place] [address] Patient Name: ARY ALEJO MR #: [id number] : 1935 Age/Sex: 82/M Req #: [id number] Adm Physician: WELLINGTON ALSTON MD Ordered by: FE HERNANDEZ MD, MD Report #: [id number] Location: MED/SURG3 Room/Bed: [facility] Procedure: IR/NON- TUNNELLED CVC CATH PLACMNT Exam Date: 12/24/17 Exam Time: 1100 REPORT STATUS: Signed Date and Time: 12/24/2017 Procedure: Right internal jugular temporary hemodialysis catheter placement yard switch operator: Dr. Gaxiola Pre-operative diagnosis: Hyperkalemia, acute kidney injury Post-operative diagnosis: Hyperkalemia, acute kidney injury Conscious Sedation: None The patient's heart rate and pulse oximetry were continuously monitored by the [facility] nurse. Blood pressure was monitored at 5 minute intervals. Additional Medications: Lidocaine 1% for local anesthesia Fluoroscopy time: 0.3 minutes Frontal Air Kerma: 11.70 mGy Contrast used: None Estimated blood loss: Minimal Blood products administered: None Specimens: None Implants: 13 Italian 15 cm triple-lumen hi flow central venous catheter Complications: No immediate Condition at completion: Stable Disposition: Return to [facility] DISCUSSION: Informed consent was obtained and documented in the medical record after discussion of risks and benefits. The patient was placed in the supine position on the hospital bed. Preliminary sonographic evaluation confirmed patency of the right internal jugular vein, evidenced by compressibility. The right neck was prepped and draped in the standard sterile fashion. 1% lidocaine was infiltrated into the skin and subcutaneous tissues for local anesthesia. Then under continuous sonographic guidance, an 18-gauge singlewall needle was used to access the right internal jugular vein. A permanent sonographic image was stored in the medical record. A 0.0 3 5-in. wire was advanced centrally into the IVC under fluoroscopic guidance. The needle was removed over the wire and the tract was dilated. Then a 13 Italian, 15 cmtriple-lumen central venous catheter was advanced over the wire to full depth. The wire was removed, and the catheter tip was positioned at the low superior vena cava.. Each lumen showed adequate bidirectional flow and was flushed with sterile saline. The catheter was secured to the skin with monofilament nylon suture and a sterile dressing was applied. The patient tolerated the procedure well without immediate complication. FINDINGS: Patent right internal jugular vein I MPRESSION: Successful placement of a nontunneled hemodialysis catheter (13 Italian, 15 cm triple-lumen Trialysis) by a right internal jugular approach under sonographic and fluoroscopic guidance. Signed by: Dr. Uriah Gaxiola M.D. on 12/24/2017 1:04 PM Dictated By: URIAH GAXIOLA MD 1141 Transcribed By: SALVADOR on 12/28/17 114 COPY TO: HERNANDEZFE SHI CHEST SINGLE (PORTABLE) 2017-12-22 06:29:00 [place] [address] Patient Name: ARY ALEJO MR #: [id number] : 1935 Age/Sex: 82/M Req #: [id number] Adm Physician: WELLINGTON ALSTON MD Ordered by: BURT FABIAN NP Report #: [id number] Location: [facility] Room/Bed: [place] [address] Procedure: [id number] DX/CHEST SINGLE (PORTABLE) Exam Date: 12/22/17 Exam Time: 0555 REPORT STATUS: Signed CHEST SINGLE (PORTABLE), 12/22/2017 7:00 AM Technique: CHEST SINGLE (PORTABLE) Comparison: 12/21/2017 Clinical history: Shortness of breath Findings: See Impression Impression: Limited by body habitus, portable technique. 1. Lines/Tubes: Electronic device overlies the right hemithorax. 2. Stable mildly enlarged cardiomediastinal silhouette. Consider follow-up upright PA and lateral. 3. No consolidation or edema. 4. No effusion or pneumothorax. Left costophrenic angle is excluded. Signed by: Dr Ang Taylor MD on 12/22/2017 6:31 AM Dictated By: ANG TAYLOR MD 0 Transcribed By: SALVADOR on 12/22/17630 COPY TO: BURT FABIAN NP CHEST SINGLE (PORTABLE) 2017-12-21 16:29:00 [place] [address] [place] [address] Patient Name: ARY ALEJO MR #: [id number] : 1935 Age/Sex: 82/M Req #: [id number] Adm Physician: Ordered by: BURT FABIAN NP Report #: [id number] Location: ER Room/Bed: Procedure: [id number] DX/CHEST SINGLE (PORTABLE) Exam Date: 12/21/17 Exam Time: 1620 REPORT STATUS: Signed EXAMINATION: CHEST SINGLE (PORTABLE) INDICATION: Chest pain. Abdomen pain. COMPARISON: July 29, 2016 FINDINGS: Portable AP view Limited by body habitus. TUBES and LINES: Metallic device and wires overlie the right and left chest. LUNGS: Lungs are well inflated. Mild central vascular congestion. There is no evidence of pneumonia or pulmonary edema. PLEURA: No pleural effusion or pneumothorax. HEART AND MEDIASTINUM: Thickened right paratracheal stripe. BONES AND SOFT TISSUES: No acute osseous lesion. Soft tissues are unremarkable. UPPER ABDOMEN: No free air under the diaphragm. IMPRESSION: Mild central vascular congestion. Thickened right paratracheal stripe could be artifactual. Upright PA and lateral chest radiographs are boy mmended Signed by: Dr. Ramakrishna Hays M.D. on 12/21/2017 4:34 PM Dictated By: RAMAKRISHNA HAYS MD, MD 1635 Transcribed By: SALVADOR on 12/21/17 1634 COPY TO: BURT FABIAN NP ABDOMEN-1VIEW (KUB) 2017-10-31 18:13:00 [place] [address] Patient Name: ARY ALEJO MR #: [id number] : 1935 Age/Sex: 82/M Req #: [id number] Adm Physician: Ordered by: DESHAUN RASCON MD Report #: [id number] Location: [facility] Room/Bed: Procedure: [id number] DX/ABDOMEN-1VIEW (KUB) Exam Date: 10/31/17 Exam Time: 1745 REPORT STATUS: Signed PROCEDURE: X-RAY ABDOMEN - KUB COMPARISON: KUB dated 01/12/17 INDICATIONS: STONES FINDINGS: Limited by body habitus. There is a non-obstructed bowel-gas pattern. There are no calcifications projected over the renal shadows, expected course of the ureters or bladder. Left upper quadrant calcification is again seen, which was characterized as splenic calcified granuloma on prior exam. There are no acute osseous abnormalities. The lung bases are clear. CONCLUSION: Nonobstructive bowel gas pattern. No definite evidence of nephrolithiasis. Dictated by: Bubba Lujan M.D. on 10/31/2017 at 18:13 Electronically approved by: Bubba Lujan M.D. on 10/31/2017 at 18:13 Dictated By: BUBBA LUJAN MD 12 Transcribed By: LAURITA on 10/31/171812 COPY TO: DESHAUN RASCON MD MODIFIED BA. KATHY 2017-09-05 18:00:00 [place] [address] Patient Name: ARY ALEJO MR #: [id number] : 1935 Age/Sex: 82/M Req #: [id number] Adm Physician: Ordered by: WELLINGTON ALSTON MD Report #: [id number] Location: DX Room/Bed: Procedure: DX/MODIFIED BA. SWALLOW Exam Date: 09/05/17 Exam Time: 1200 REPORT STATUS: Signed PROCEDURE: X-RAY MODIFIED BARIUM SWALLOW COMPARISON: 07/31/17 INDICATIONS: Not provided. DISCUSSION: Fluoroscopic examination was performed in conjunction with speech pathology, during swallowing of a variety of thin and thick liquid consistencies. Fluoroscopy time: 2:03 min Cumulative air kerma : 16.85 mGy CONCLUSION: One episode of minimal silent aspiration with mixed consistency. Please see the report from speech pathology for complete details. Dictated by: Bubba Lujan M.D. on 09/05/2017 at 18:00 Electronically approved by: Bubba Lujan M.D. on 09/05/2017 at 18:00 Dictated By: BUBBA LUJAN MD 1800 Transcribed By: LAURITA on 09/05/17 1800 COPY TO: WELLINGTON ALSTON MD TISSUE EXAM 2017-08-10 15:53:00 Surgical Pathology Report Case: [id number] Authorizing Provider: Radha Brice MD Collected: 08/10/2017 1144 Ord ering Location: [facility] Received: 08/10/2017 1237 SERVICES Pathologist: Gurvinder Zapata MD Specimen: Hardware, implantable pulse generator MANAGER BOOK, CHEST, REMOVAL: - MANAGER BOOK (GROSS DIAGNOSIS)[place]/DB/pl Signing Pathologist Direct Phone Line: [phone] signed by Gurvinder Zapata MD on 08/10/2017 at 3:53 [id number]'s disease, end of battery life of intrathecal infusion pumpImplantable pulse generatorReceived fresh labeled "hardware", description "implantable pulse generator" is a 6.5 x 5.5 x 2.0 cm metallic medical anthropology director. The specimen is for gross identification only. DB/pl POCT-GLUCOSE METER 2017-08-10 12:06:00 POC-GLUCOSE METER (BEAKER) (test umjk=4041) 169 mg/dL 70-110 TESTED AT [facility] [address] [facility] [address] BUN AND [id number] 08:56:00* Test Item Value Reference Range Comments BLOOD UREA NITROGEN (BEAKER) (test dleo=236) 59 mg/dL 7-21 CREATININE (BEAKER) (test byhh=407) 2.19 mg/dL 0.57-1.25 EGFR (BEAKER) (test dkwm=9884) 29 mL/min/1.73 sq m ESTIMATED GFR IS NOT ACCURATE CREATININE CLEARANCE IN PREDICTING GLOMERULAR FILTRATION RATE. ESTIMATED GFR IS NOT APPLICABLE FOR DIALYSIS PATIENTS. POCT-GLUCOSE [id number] 08:06:00* Test Item Value Reference Range Comments POC-GLUCOSE METER (BEAKER) (test zzrd=1267) 130 mg/dL 70-110 TESTED AT [place] [id number] [facility] [address] RAD, CHEST, 2 [id number] 17:03:00Reason for exam:->pre op testingFINAL REPORT Chest x-ray Clinical History: pre op testing Comparison: No comparison Views: Five Chest x-ray:The cardiac and mediastinal s ilhouettes are enlarged with a left ventricular figuration and a tortuous aorta. There is no evidence of a pneumothorax. There is no evidence of a pleural ef fusion. There is no evidence of overt cardiac failure. The visible regional sk eleton is intact. There is no evidence of a focal parenchymal opacity. A batter y is seen overlying the patient's right hemithorax with leads traversing inferio rly overlying the right neck. Impression: Cardiomegaly and nonspecific increased interstitial pattern which may be exaggerated by the patient's body habitus. No active cardiopulmonary disease. Signed: Ruby Goodmanort Verified Date/Time: 07/23/2017 17:03:06 Reading Location: [address] Radiology Reading Room C METABOLIC [id number] 16:44:00* Test Item Value Reference Range Comments SODIUM (BEAKER) (test rkeg=421) 141 meq/L 136-145 POTASSIUM (BEAKER) (test dxja=523) 4.5 meq/L 3.5-5.1 CHLORIDE (BEAKER) (test lyfk=820) 104 meq/L 98-107 CO2 (BEAKER) (test qmtf=500) 28 meq/L 22-29 BLOOD UREA NITROGEN (BEAKER) (test njdp=211) 71 mg/dL 7-21 CREATININE (BEAKER) (test warp=477) 2.70 mg/dL 0.57-1.25 GLUCOSE RANDOM (BEAKER) (test jrtd=404) 142 mg/dL 70-105 CALCIUM (BEAKER) (test mzhl=893) 9.2 mg/dL 8.4-10.2 EGFR (BEAKER) (test yjib=0896) 23 mL/min/1.73 sq m ESTIMATED GFR IS NOT ACCURATE CREATININE CLEARANCE IN PREDICTING GLOMERULAR FILTRATION RATE. ESTIMATED GFR IS NOT APPLICABLE FOR DIALYSIS PATIENTS. URINALYSIS W/ REFLEX URINE [id number] 16:41:00* Test Item Value Reference Range Comments COLOR (BEAKER) (test mpxd=352) Light Yellow CLARITY (BEAKER) (test gdsc=329) Clear SPECIFIC GRAVITY UA (BEAKER) (test fkjt=316) 1.008 1.001-1.035 PH UA (BEAKER) (test epkl=983) 5.0 5.0-8.0 PROTEIN UA (BEAKER) (test opat=247) Negative Negative GLUCOSE UA (BEAKER) (test blwg=512) Negative Negative KETONES UA (BEAKER) (test rnac=734) Negative Negative BILIRUBIN UA (BEAKER) (test sgqw=196) Negative Negative BLOOD UA (BEAKER) (test brsw=866) Negative Negative NITRITE UA (BEAKER) (test tlsl=767) Negative Negative LEUKOCYTE ESTERASE UA (BEAKER) (test lwvh=629) Moderate Negative UROBILINOGEN UA (BEAKER) (test dyvs=233) 0.2 mg/dL 0.2-1.0 RBC UA (BEAKER) (test gujg=860) 1 /HPF WBC UA (BEAKER) (test hgjz=940) 7 /HPF BACTERIA (BEAKER) (test maar=509) Rare SOURCE(BEAKER) (test ujqi=9227) PROTHROMBIN TIME/[id number] 16:40:00* Test Item Value Reference Range Comments PROTIME (BEAKER) (test gdtj=269) 14.2 seconds 11.7-14.7 INR (BEAKER) (test pxtu=107) 1.1 <=5.9 RECOMMENDED COUMADIN/WARFARIN INR THERAPY RANGESSTANDARD DOSE: 2.0 - 3.0 Inclu anamaria: PROPHYLAXIS for venous thrombosis, systemic embolization; TREATMENT for venu ous thrombosis and/or pulmonary embolus.HIGH RISK: Target INR is 2.5-3.5 for pat ients with mechanical heart valves.[id number] 16:40:00* Test Item Value Reference Range Comments PARTIAL THROMBOPLASTIN TIME (BEAKER) (test mgvh=950) 29.0 seconds 22.5-36.0 CBC W/PLT COUNT & AUTO [id number] 16:27:00* Test Item Value Reference Range Comments WHITE BLOOD CELL COUNT (BEAKER) (test tart=213) 9.7 K/ L 3.5-10.5 RED BLOOD CELL COUNT (BEAKER) (test hifb=043) 4.07 M/ L 4.63-6.08 HEMOGLOBIN (BEAKER) (test wtap=723) 11.3 GM/DL 13.7-17.5 HEMATOCRIT (BEAKER) (test thrn=081) 37.3 % 40.1-51.0 MEAN CORPUSCULAR VOLUME (BEAKER) (test kcut=003) 91.6 fL 79.0-92.2 MEAN CORPUSCULAR HEMOGLOBIN (BEAKER) (test xcbu=590) 27.8 pg 25.7-32.2 MEAN CORPUSCULAR HEMOGLOBIN CONC (BEAKER) (test bbch=011) 30.3 GM/DL 32.3-36.5 RED CELL DISTRIBUTION WIDTH (BEAKER) (test dkpt=307) 16.3 % 11.6-14.4 PLATELET COUNT (BEAKER) (test pmlv=528) 154 K/CU MM 150-450 MEAN PLATELET VOLUME (BEAKER) (test alcz=169) 9.7 fL 9.4-12.4 NUCLEATED RED BLOOD CELLS (BEAKER) (test oxph=262) 0 /100 WBC 0-0 NEUTROPHILS RELATIVE PERCENT (BEAKER) (test gliq=732) 67 % LYMPHOCYTES RELATIVE PERCENT (BEAKER) (test gqds=575) 16 % MONOCYTES RELATIVE PERCENT (BEAKER) (test fsvx=052) 11 % EOSINOPHILS RELATIVE PERCENT (BEAKER) (test fyxk=441) 5 % BASOPHILS RELATIVE PERCENT (BEAKER) (test duxz=084) 1 % NEUTROPHILS ABSOLUTE COUNT (BEAKER) (test vayi=885) 6.50 K/ L 1.78-5.38 LYMPHOCYTES ABSOLUTE COUNT (BEAKER) (test xyea=635) 1.55 K/ L 1.32-3.57 MONOCYTES ABSOLUTE COUNT (BEAKER) (test mnwg=233) 1.03 K/ L 0.30-0.82 EOSINOPHILS ABSOLUTE COUNT (BEAKER) (test zzjp=654) 0.48 K/ L 0.04-0.54 BASOPHILS ABSOLUTE COUNT (BEAKER) (test icoe=067) 0.05 K/ L 0.01-0.08 IMMATURE GRANULOCYTES-RELATIVE PERCENT (BEAKER) (test ildp=7844) 1 % 0-1 MODIFIED BA. SWALLOW [place] [address] Patient Name: ARY ALEJO MR #: [id number] : 1935 Age/Sex: 82/M Req #: [id number] Adm Physician: Ordered by: AVILA HAMILTON MD Report #: [id number] Location: DX Room/Bed: Procedure: [id number] DX/MODIFIED BA. SWALLOW Exam Date: 07/31/17 Exam Time: 1328 REPORT STATUS: S igned PROCEDURE: X-RAY MODIFIED BARIUM SWALLOW COMPARISON: None. INDICATIONS: Dysphagia. DISCUSSION: Fluoroscopic examination was p erformed in conjunction with speech pathology, during swallowing of a variety of thin and thick liquid consistencies. CONCLUSION: Trace aspiration with thin liquids. Please see the report from speech pathology f or complete details. Dictated by: Ary Cardenas M.D. on 08/01/2017 at 1 4:12 Electronically approved by: Ary Cardenas M.D. on 08/01/2017 at 14:12 Dictated By: ARY CARDENAS MD 1412 Transcribed By: LAURITA on 08/01/17 141 COPY TO: AVILA HAMILTON MD MODIFIED BA. SWALLOW [place] [address] Patient Name: ARY ALEJO MR #: [id number] : 1935 Age/Sex: 81/M Req #: [id number] Adm Physician: Ordered by: AVILA HAMILTON MD Report #: [id number] Location: DX Room/Bed: Procedure: [id number] DX/MODIFIED BA. SWALLOW Exam Date: 06/13/17 Exam Time: 919 REPORT STATUS: S igned PROCEDURE: X-RAY MODIFIED BARIUM SWALLOW COMPARISON: None. INDICATIONS: Not provided. DISCUSSION: Fluoroscopic examination was performed in conjunction with speech pathology, during swallowing of a vari ety of thin and thick liquid consistencies. CONCLUSION: Radio paque noted with multiple consistencies. Wilmer aspiration noted with administ ration of thin liquid. Please see the report from speech pathology for comple te details. Dictated by: Uriah Gaxiola M.D. on 06/13/2017 at 12:03 Electronically approved by: Uriah Gaxiola M.D. on 06/13/2017 at 12:03 Dictated By: URIAH GAXIOLA MD 1203 Transcribed By: LAURITA on 06/13/17 1203 COPY TO: AVILA HAMILTON MD US RENAL RETROPERITONEAL COMP [place] [address] Patient Name: ARY ALEJO MR #: [id number] : 1935 Age/Sex: 81/M Req #: [id number] Adm Physician: Ordered by: DESHAUN RASCON MD Report #: [id number] Location: US Room/Bed: Procedure: [id number] US/US RENAL RETROPERITONEAL CO MP Exam Date: 04/06/17 Exam Time: 1232 REPORT STATUS: Signed PROCEDURE: US RETROPERITONEAL ( KIDNEY ). COMPARISON: CT abdomen 08/07/16 INDICATIONS: RENAL CYST TECHNIQUE: Luu-scale and color so nographic images of the bilateral kidneys and bladder where obtained in trans verse and longitudinal planes. Study is compromised due to patient's ge nerous body habitus. FINDINGS: RIGHT KIDNEY: Measures 14 cm in le ngth. The cortex is diminutive. Cysts: None visualized Solid masses: None vi sualized Stones: None visualized Hydronephrosis: None Echogenicity: Shahnaz l LEFT KIDNEY: Measures 16 cm in length. The cortex is diminutive. Cysts: None visualized Solid masses: Nonvisualized Stones: Nonvisualized Hy dronephrosis: None Echogenicity: Normal Bladder: Collapsed. No sunny e fluid. Visualized portions of the liver demonstrate no evidence of mass. Th e liver is increased in echotexture suggestive of steatosis. CONCLUSION: Compromised study as described above. Renal masses, if present, are not visible. Atrophic kidneys. No hydronephrosis. Dictated by: Maximus Lowe M.D. on 04/06/2017 at 14:18 Electronically approved by: Maximus Lowe M.D. on 04/06/2017 at 14:18 Dictated By: HOA ALBERT MD 1418 Trans cribed By: LAURITA on 04/06/17 1418 COPY TO: DESHAUN RASCON MD ABDOMEN-1VIEW (KUB) [place] [address] Patient Name: ARY ALEJO MR #: [id number] : 1935 Age/Sex: 81/M Req #: [id number] Adm Physician: Ordered by: DESHAUN RASCON MD Report #: [id number] Location: [facility] Room/Bed: Procedure: [id number] DX/ABDOMEN-1VIEW (KUB) Exam Date: 01/12/17 Exam Time: 1500 REPORT STATUS: S igned PROCEDURE: X-RAY ABDOMEN - KUB COMPARISON: Patients [facility] enter, CT, CT ABDOMEN/PELVIS WO, 07/29/2016, 14:11. [facility], DX, ABDOMEN-1VIEW (KUB), 05/30/2016, 12:06. INDICATIONS: CALCULUS OF K IDNEY FINDINGS: There is a non-obstructed bowel-gas pattern. There ar e no calcifications projected over the renal shadows, expected course of the ureters or bladder. A 3 mm rounded calcification projected over the left u pper quadrant laterally consistent with a calcified splenic granuloma also pr esent the prior CT examination. There are no acute osseous abnormalities. 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 Mild DJD of the SI landon nts. Facet arthropathy in the lower lumbar spine. The lung bases are clear. CONCLUSION: Nonobstructive bowel gas pattern. No evidence of urolithia sis. Christina Villalobos M.D. Dictated by: Major Bal on 01/12/2017 at 16:52 Electronically approved by: Christina lerma M.D. on 01/12/2017 at 16:52 Dictated By: MELISSA Shahid MD 51 Transcrib ed By: LAURITA on 01/12/171651 COPY TO: DESHAUN RASCON MD
--- OUTSIDE RECORDS SUMMARY | 2018-01-15 05:44 | XMS REPORT | Clinical Summary ---
Author Author [facility] Address Unknown Phone Unavailable Care Team Providers Care Writing Center Director Name Role Phone PCP Unavailable Allergies Active Allergy Reactions Severity Noted Date Comments Other Itching, Swelling 10/27/2013 Allergic to an antibiotic (not sure of name) Ketorolac Itching, Swelling 10/27/2013 Current Medications Prescription Sig. Disp. Refills Start End Date Status Date insulin regular Inject 100 Units Active (HUMULIN,NOVOLIN) 100 subcutaneously 3 (three) unit/mL injection times daily before meals Use as directed . atenolol (TENORMIN) 50 MG Take 50 mg by mouth Active tablet daily. isosorbide mononitrate Take 60 mg by mouth daily Active (IMDUR) 60 MG 24 hr . tablet losartan (COZAAR) 50 MG Take 50 mg by mouth Active tablet daily. omega-3 fatty Take by mouth 2 (two) Active acids-vitamin E 1,000 mg times daily. Cap insulin NPH (HUMULIN Inject 100 Units Active N,NOVOLIN N) 100 unit/mL subcutaneously 2 (two) injection times daily before meals Use as directed . levothyroxine (SYNTHROID, Take 75 mcg by mouth Active LEVOTHROID) 75 MCG tablet Every morning on an empty stomach. furosemide (LASIX) 40 MG Take 40 mg by mouth 2 Active tablet (two) times daily. ALLOPURINOL ORAL Take 200 mg by mouth Active daily. gabapentin (NEURONTIN) Take 100 mg by mouth Active 100 MG capsule daily. cetirizine (ZYRTEC) 10 MG Take 10 mg by mouth Active tablet daily. diphenhydrAMINE Take 25 mg by mouth every Active (BENADRYL) 25 mg tablet night as needed for Sleep. omeprazole (PRILOSEC) 40 Take 40 mg by mouth Active MG capsule daily. tamsulosin (FLOMAX) 0.4 Take 0.4 mg by mouth Active mg Cp24 24 hr capsule daily. traMADol (ULTRAM) 50 mg Take 50 mg by mouth every Active tablet 6 (six) hours as needed for Pain. acetaminophen-codeine Take 1 tablet by mouth Active (TYLENOL #4) 300-60 mg every 4 (four) hours as per tablet needed for Pain. acetaminophen-codeine Take 1 tablet by mouth 30 tablet 0 08/11/19 08/21/19 (TYLENOL #4) 300-60 mg every 6 (six) hours as 18 18 per tablet needed for Pain for up to 10 days. Max Daily Amount: 4 tablets Active Problems Problem Noted Date Parkinson's disease (HCC) 08/10/2017 End of battery life of deep brain stimulator 08/10/2017 Encounters Date Type Specialty Care Team Description 08/10/2017 [facility] Pedro Garcias MD Pre-op testing Encounter 08/10/2017 Procedure Pass 08/10/2017 Surgery Pedro Garcias MD REPLACEMENT,DEEP BRAIN STIMULATOR 08/09/2017 Anesthesia Tala Bauer MD Event 07/23/2017 Hospital Cardiology Pedro Garcias MD Encounter 07/23/2017 Hospital Pre-Admission Testing Pedro Garcias MD Pre-op testing Encounter 07/23/2017 Orders Only Neurosurgery Pedro Garcias MD Pre-op testing (Primary Dx) after 12/20/2016 Social History Tobacco Use Types Packs/Day Years Used Date Never Smoker Smokeless Tobacco: Never Used Alcohol Use Drinks/Week oz/Week Comments No Sex Assigned at Date Recorded Not on file Last Filed Vital Signs Vital Sign Reading Time Taken Blood Pressure 158/60 08/10/2017 2:40 PM CDT Pulse 73 08/10/2017 2:40 PM CDT Temperature 36.7 C (98 F) 08/10/2017 2:40 PM CDT Respiratory Rate 16 08/10/2017 2:40 PM CDT Oxygen Saturation 97% 08/10/2017 2:40 PM CDT Inhaled Oxygen - - Concentration Weight 143.2 kg (315 lb 9.6 oz) 08/10/2017 6:50 AM CDT Height 185.4 cm (6' 1") 08/10/2017 6:50 AM CDT Body Mass Index 41.64 08/10/2017 6:50 AM CDT Plan of Treatment Not on file Implants Implanted Type Area Field Manager Device Expiration Model / Identifier Date Serial / Lot Neurostimulator,Activa Rc Bilateral Neuro Right: [employer] 02/27/2015 [id number] / 39cc - [id number] Chest NEUROMODULATION [id number] Implanted: Qty: 1 on 10/28/2013 by / Pedro Garcias MD Stimulator Neuro [employer]iva P[employer] [id number] - Neuro Right: [employer]:NEURO 12/28/2018 [id number] / [id number] Chest MODULATION [id number] Implanted: Qty: 1 on 08/10/2017 by / Pedro Garcias MD Pocket Adaptor 2x4 Right: 01/01/2016 [id number] / Implanted: Qty: 1 on 10/28/2013 by Chest / Pedro Garcias MD [id number] Procedures Procedure Name Priority Date/Time Associated Diagnosis Comments REPLACEMENT,DEEP BRAIN 08/10/2017 Parkinson disease (HCC) STIMULATOR 9:00 AM CDT Special Needs (O-ARM, [employer] REP, DIFFICULT INTUBATION ) PROCEDURE W/ C-ARM 08/10/2017 Parkinson disease (HCC) 9:00 AM CDT Special Needs (O-ARM, [employer]TRON[employer] REP, DIFFICULT INTUBATION ) after 12/20/2016 Results * POC-Glucose meter (08/10/2017 12:04 PM) Only the most recent of 2 results within the time period is included. Component Value Ref Range POC-Glucose Meter 169 (H)Comment: TESTED AT [address] 70 - 110 mg/dL [place] [address] Specimen Performing Laboratory [place] [address] * Tissue Exam (08/10/2017 11:44 AM) Component Value Ref Range Case Report Surgical Pathology Report Case: [id number] Authorizing Provider:Pedro Garcias MDCollected: 08/10/2017 1144 Ordering Location: [facility] Received:08/10/2017 1237 SERVICES Pathologist: Gurvinder Zapata MD Specimen:Hardware, implantable pulse generator DIAGNOSIS SERVICE TECH, CHEST, REMOVAL: - SERVICE TECH (GROSS DIAGNOSIS) [place]/DB/pl Signing Pathologist Direct Phone Line: [phone] CPT Code(s) 99675 CLINICAL HISTORY Parkinson's disease, end of battery life of intrathecal infusion pump SPECIMEN SOURCE Implantable pulse generator GROSS DESCRIPTION Received fresh labeled "hardware", description "implantable pulse generator" is a 6.5 x 5.5 x 2.0 cm metallic medical office assistant. The specimen is for gross identification only. DB/pl Specimen Performing Laboratory Tissue - Hardware [place] [id number] * BUN and Creatinine (08/10/2017 7:58 AM) Component Value Ref Range BUN 59 (H) 7 - 21 mg/dL Creatinine 2.19 (H) 0.57 - 1.25 mg/dL EGFR 29Comment: ESTIMATED GFR IS NOT ACCURATE mL/min/1.73 sq m CREATININE CLEARANCE IN PREDICTING GLOMERULAR FILTRATION RATE. ESTIMATED GFR IS NOT APPLICABLE FOR DIALYSIS PATIENTS. Specimen Performing Laboratory Blood [place] [id number] * TRANSFUSION SERVICE REPORT - SCAN (07/24/2017 5:56 PM) * XR chest 2 views (07/23/2017 4:30 PM) Specimen Performing Laboratory GE RIS Narrative FINAL REPORT Chest x-ray Clinical History: pre op testing Comparison: No comparison Views: Five Chest x-ray: The cardiac and mediastinal silhouettes are enlarged with a left ventricular figuration and a tortuous aorta.There is no evidence of a pneumothorax.There is no evidence of apleural effusion.There is no evidence of overt cardiac failure.The visible regional skeleton is intact.There is no evidence of a focal parenchymal opacity. A battery is seen overlying the patient's right hemithorax with leads traversing inferiorly overlying the right neck. Impression: Cardiomegaly and nonspecific increased interstitial pattern which may be exaggerated by the patient's body habitus. No active cardiopulmonary disease. Signed: Zak Goodman MD Report Verified Date/Time:07/23/2017 17:03:06 Reading Location: [address] Radiology Reading Room Procedure Note Interface, External Ris In - 07/23/2017 5:05 PM CDT FINAL REPORT Chest x-ray Clinical History: pre op testing Comparison: No comparison Views: Five Chest x-ray: The cardiac and mediastinal silhouettes are enlarged with a left ventricular figuration and a tortuous aorta. There is no evidence of a pneumothorax. There is no evidence of a pleural effusion. There is no evidence of overt cardiac failure. The visible regional skeleton is intact. There is no evidence of a focal parenchymal opacity. A battery is seen overlying the patient's right hemithorax with leads traversing inferiorly overlying the right neck. Impression: Cardiomegaly and nonspecific increased interstitial pattern which may be exaggerated by the patient's body habitus. No active cardiopulmonary disease. Signed: Zak Goodman MD Report Verified Date/Time: 07/23/2017 17:03:06 Reading Location: [address] Radiology Reading Room * aPTT (07/23/2017 3:59 PM) Component Value Ref Range PTT 29.0 22.5 - 36.0 seconds Specimen Performing Laboratory Blood [address] [address] * Prothrombin time/INR (07/23/2017 3:59 PM) Component Value Ref Range Protime 14.2 11.7 - 14.7 seconds INR 1.1 <=5.9 Specimen Performing Laboratory Blood [address] [address] Narrative RECOMMENDED COUMADIN/WARFARIN INR THERAPY RANGES STANDARD DOSE: 2.0 - 3.0 Includes: PROPHYLAXIS for venous thrombosis, systemic embolization; TREATMENT for venous thrombosis and/or pulmonary embolus. HIGH RISK: Target INR is 2.5-3.5 for patients with mechanical heart valves. * Urinalysis w/Microscopic + Reflex to Culture (07/23/2017 3:55 PM) Component Value Ref Range Color, UA Light Yellow Clarity, UA Clear Specific [place], UA 1.008 1.001 - 1.035 pH, UA 5.0 5.0 - 8.0 Protein, UA Negative Negative Glucose, UA Negative Negative Ketones, UA Negative Negative Bilirubin, UA Negative Negative Blood, UA Negative Negative Nitrite, UA Negative Negative Leukocytes, UA Moderate (A) Negative Urobilinogen, UA 0.2 0.2 - 1.0 mg/dL RBC, UA 1 /HPF WBC, UA 7 /HPF Bacteria, UA Rare Specimen Source Specimen Performing Laboratory Urine [place] [id number] * Type and screen, automated (07/23/2017 3:55 PM) Component Value Ref Range ABO/RH AUTOMATED (BEAKER) O POSITIVE Ab Scrn NEGATIVE Specimen Performing [place] [address] * CBC with platelet count + automated diff (07/23/2017 3:55 PM) Component Value Ref Range WBC 9.7 3.5 - 10.5 K/L RBC 4.07 (L) 4.63 - 6.08 M/L Hemoglobin 11.3 (L) 13.7 - 17.5 GM/DL Hematocrit 37.3 (L) 40.1 - 51.0 % MCV 91.6 79.0 - 92.2 fL MCH 27.8 25.7 - 32.2 pg MCHC 30.3 (L) 32.3 - 36.5 GM/DL RDW 16.3 (H) 11.6 - 14.4 % Platelets 154 150 - 450 K/CU MM MPV 9.7 9.4 - 12.4 fL nRBC 0 0 - 0 /100 WBC % Neutros 67 % % Lymphs 16 % % Monos 11 % % Eos 5 % % Baso 1 % # Neutros 6.50 (H) 1.78 - 5.38 K/L # Lymphs 1.55 1.32 - 3.57 K/L # Monos 1.03 (H) 0.30 - 0.82 K/L # Eos 0.48 0.04 - 0.54 K/L # Baso 0.05 0.01 - 0.08 K/L Immature 1 0 - 1 % Granulocytes-Relative Specimen Performing Laboratory Blood [place] [id number] * CBC with platelet count + automated diff (07/23/2017 3:55 PM) Specimen Performing Laboratory Blood Narrative The following orders were created for panel order CBC with platelet count + automated diff. Procedure Abnormality Status --------- ------ CBC with platelet count ...[[id number]]AbnormalFinal result Please view results for these tests on the individual orders. * Urine culture (07/23/2017 3:55 PM) Component Value Ref Range Result 50-59,000 col/mL skin erick Specimen Performing Laboratory Urine - Urine, [facility] Unspecified Source [address] [place] [address] * Basic Metabolic Panel (07/23/2017 3:55 PM) Component Value Ref Range Sodium 141 136 - 145 meq/L Potassium 4.5 3.5 - 5.1 meq/L Chloride 104 98 - 107 meq/L CO2 28 22 - 29 meq/L BUN 71 (H) 7 - 21 mg/dL Creatinine 2.70 (H) 0.57 - 1.25 mg/dL Glucose 142 (H) 70 - 105 mg/dL Calcium 9.2 8.4 - 10.2 mg/dL EGFR 23Comment: ESTIMATED GFR IS NOT ACCURATE mL/min/1.73 sq m CREATININE CLEARANCE IN PREDICTING GLOMERULAR FILTRATION RATE. ESTIMATED GFR IS NOT APPLICABLE FOR DIALYSIS PATIENTS. Specimen Performing Laboratory Blood [address] [address] * ECG 12 lead (07/23/2017 3:54 PM) Specimen Performing Laboratory GE MUSE Narrative Ventricular Rate 71 BPM Atrial Rate 71 BPM P-R Interval 170 ms QRS Duration 82 ms Q-T Interval 380 ms QTC Calculation(Bazett) 412 ms P Cobb 1 degrees R Cobb 18 degrees T Cobb 79 degrees Normal sinus rhythm Normal ECG When compared with ECG of 28-OCT-2013 09:18, No significant change was found Confirmed by MD NISREEN, IHAB ([id number]) on 07/23/2017 10:08:24 PM Procedure Note Interface, External Ris In - 07/23/2017 10:08 PM CDT Ventricular Rate 71 BPM Atrial Rate 71 BPM P-R Interval 170 ms QRS Duration 82 ms Q-T Interval 380 ms QTC Calculation(Bazett) 412 ms P Cobb 1 degrees R Cobb 18 degrees T Cobb 79 degrees Normal sinus rhythm Normal ECG When compared with ECG of 28-OCT-2013 09:18, No significant change was found Confirmed by MD NISREEN, IHAB ([id number]) on 07/23/2017 10:08:24 PM after 12/20/2016
--- OUTSIDE RECORDS SUMMARY | 2018-01-15 05:45 | XMS REPORT | Clinical Summary ---
Author Author KOLTON [facility] Address Unknown Phone Unavailable Care Team Providers Care Pricing Clerk Name Role Phone PCP Unavailable Allergies Active [...] Date Type Specialty Care Team Description 08/10/2017 [facility] Pedro Garcias MD Pre-op testing Encounter 08/10/2017 [...] Not on file Implants Implanted Type Area Cardiopulmonary Supervisor Device Expiration Model / Identifier Date Serial / Lot Neurostimulator,Activa Rc Bilateral Neuro Right: [employer] 02/27/2015 [id number] / 39cc - [id number] Chest NEUROMODULATION [id number] Implanted: Qty: 1 on 10/28/2013 by / Pedro Garcias MD Stimulator Neuro Activa Pc [id number] - Neuro Right: [employer]:NEURO 12/28/2018 [id number] / [id number] Chest MODULATION [id number] Implanted: Qty: 1 on 08/10/2017 by / Pedro Garcias MD Pocket Adaptor 2x4 Right: 01/01/2016 [id number] / Implanted: Qty: 1 on 10/28/2013 by Chest / Pedro Garcias MD [id number] Procedures Procedure Name Priority Date/Time Associated Diagnosis [...] Range POC-Glucose Meter 169 (H)Comment: TESTED AT [address] 70 - 110 mg/dL [place] [address] Specimen Performing [place] [address] * Tissue Exam (08/10/2017 11:44 AM) Component Value Ref Range Case Report Surgical Pathology Report Case: [id number] Authorizing Provider:Pedro Garcias MDCollected: 08/10/2017 1144 Ordering Location: [facility] PERIOPERATIVE Received:08/10/2017 1237 SERVICES Pathologist: Gurvinder Zapata MD Specimen:Hardware, implantable pulse generator DIAGNOSIS HAND BLOCKER, CHEST, REMOVAL: - HAND BLOCKER (GROSS DIAGNOSIS) [place]/DB/pl Signing Pathologist Direct Phone Line: [phone] CPT Code(s) 04375 CLINICAL HISTORY Parkinson's disease, end of battery life of intrathecal infusion pump SPECIMEN SOURCE Implantable pulse generator GROSS DESCRIPTION Received fresh labeled "hardware", description "implantable pulse generator" is a 6.5 x 5.5 x 2.0 cm metallic medical insurance clerk. The specimen is for gross identification only. DB/pl Specimen Performing Laboratory Tissue - Hardware [place] [id number] * BUN and Creatinine (08/10/2017 7:58 AM) Component Value Ref Range BUN 59 (H) 7 - 21 mg/dL Creatinine 2.19 (H) 0.57 - 1.25 mg/dL EGFR 29Comment: ESTIMATED GFR IS NOT ACCURATE mL/min/1.73 sq m CREATININE CLEARANCE IN PREDICTING GLOMERULAR FILTRATION RATE. ESTIMATED GFR IS NOT APPLICABLE FOR DIALYSIS PATIENTS. Specimen Performing Laboratory Blood [place] [id number] * TRANSFUSION SERVICE REPORT - SCAN (07/24/2017 [...] MD Report Verified Date/Time:07/23/2017 17:03:06 Reading Location: [address] Radiology Reading Room Procedure Note Interface, [...] Report Verified Date/Time: 07/23/2017 17:03:06 Reading Location: [address] Radiology Reading Room * aPTT (07/23/2017 3:59 PM) Component Value Ref Range PTT 29.0 22.5 - 36.0 seconds Specimen Performing Laboratory Blood [address] [address] * Prothrombin time/INR (07/23/2017 3:59 PM) Component Value Ref Range Protime 14.2 11.7 - 14.7 seconds INR 1.1 <=5.9 Specimen Performing Laboratory Blood [address] [address] Narrative RECOMMENDED COUMADIN/WARFARIN INR THERAPY RANGES STANDARD DOSE: 2.0 - 3.0 Includes: PROPHYLAXIS for venous thrombosis, systemic embolization; TREATMENT for venous thrombosis and/or pulmonary embolus. HIGH RISK: Target INR is 2.5-3.5 for patients with mechanical heart valves. * Urinalysis w/Microscopic + Reflex to Culture (07/23/2017 3:55 PM) Component Value Ref Range Color, UA Light Yellow Clarity, UA Clear Specific [place], UA 1.008 1.001 - 1.035 pH, UA [...] Rare Specimen Source Specimen Performing Laboratory Urine [place] [id number] * Type and screen, automated (07/23/2017 3:55 PM) Component Value Ref Range ABO/RH AUTOMATED (BEAKER) O POSITIVE Ab Scrn NEGATIVE Specimen Performing [place] [address] * CBC with platelet count + automated [...] 1 % Granulocytes-Relative Specimen Performing Laboratory Blood [place] [id number] * CBC with platelet count + automated diff (07/23/2017 3:55 PM) Specimen Performing Laboratory Blood Narrative The following orders were created for panel order CBC with platelet count + automated diff. Procedure Abnormality Status --------- ------ CBC with platelet count ...[[id number]]AbnormalFinal result Please view results for these tests on the individual orders. * Urine culture (07/23/2017 3:55 PM) Component Value Ref Range Result 50-59,000 col/mL skin erick Specimen Performing Laboratory Urine - Urine, [facility] Unspecified Source [address] [place] [address] * Basic Metabolic Panel (07/23/2017 3:55 PM) [...] FOR DIALYSIS PATIENTS. Specimen Performing Laboratory Blood [address] [address] * ECG 12 lead (07/23/2017 3:54 PM) Specimen Performing Laboratory GE MUSE Narrative Ventricular Rate 71 BPM Atrial Rate 71 BPM P-R Interval 170 ms QRS Duration 82 ms Q-T Interval 380 ms QTC Calculation(Bazett) 412 ms P [place] 1 degrees R [place] 18 degrees T [place] 79 degrees Normal sinus rhythm Normal ECG [...] 380 ms QTC Calculation(Bazett) 412 ms P [place] 1 degrees R [place] 18 degrees T [place] 79 degrees Normal sinus rhythm Normal ECG When compared with ECG of 28-OCT-2013 09:18, No significant change was found Confirmed by MD NISREEN, IHAB ([id number]) on 07/23/2017 10:08:24 PM after 12/20/2016
--- NOTE | 2018-02-15 23:18 | Discharge Summary ---
DISCHARGE DIAGNOSIS: End-stage renal disease. HISTORY OF PRESENT ILLNESS AND HOSPITAL COURSE: Patient is a gentleman who presented with gxinz-lo-kvscxvy renal failure with end-stage renal disease components where he was started on dialysis, had AV fistula placed, in seen by multiple sub-specialists. During this hospitalization, he did well. His initial symptoms of nausea and vomiting did improve after dialysis started, and he was able at the time of discharge to tolerate his p.o. intake very well. At the time of discharge, I felt like the patient was too weak to go home, so he was agreeable to inpatient rehab where he was then transferred for inpatient rehab. Please see hospital chart for full details. WELLINGTON ALSTON MD Job#: [id number] PRO
== END 2018-01-07 21:10 | DRG 628 ==
LOC: ER 14:41 → ERHOLD 18:38 → IMCU 19:30 → MED/SURG3 12-27 13:33
PROVIDERS: ADMIT Internal Medicine; ATTEND Internal Medicine
PROC: B513ZZA Fluoroscopy of Right Jugular Veins, Guidance (ICD-10-PCS; 2017-12-24)
PROC: 5A1D70Z Performance of Urinary Filtration, Intermittent, Less than 6 Hours Per Day (ICD-10-PCS; 2017-12-24)
PROC: 02HV33Z Insertion of Infusion Device into Superior Vena Cava, Percutaneous Approach (ICD-10-PCS; 2017-12-24)
PROC: 5A1D70Z Performance of Urinary Filtration, Intermittent, Less than 6 Hours Per Day (ICD-10-PCS; 2017-12-25)
PROC: 5A1D70Z Performance of Urinary Filtration, Intermittent, Less than 6 Hours Per Day (ICD-10-PCS; 2017-12-26)
PROC: 5A1D70Z Performance of Urinary Filtration, Intermittent, Less than 6 Hours Per Day (ICD-10-PCS; 2017-12-28)
PROC: 0JH63XZ Insertion of Tunneled Vascular Access Device into Chest Subcutaneous Tissue and Fascia, Percutaneous Approach (ICD-10-PCS; 2017-12-28)
PROC: 06H033Z Insertion of Infusion Device into Inferior Vena Cava, Percutaneous Approach (ICD-10-PCS; 2017-12-28)
PROC: B5191ZA Fluoroscopy of Inferior Vena Cava using Low Osmolar Contrast, Guidance (ICD-10-PCS; 2017-12-28)
PROC: 5A1D70Z Performance of Urinary Filtration, Intermittent, Less than 6 Hours Per Day (ICD-10-PCS; 2017-12-31)
PROC: 03180ZD Bypass Left Brachial Artery to Upper Arm Vein, Open Approach (ICD-10-PCS; principal; 2018-01-01 12:03)
PROC: 5A1D70Z Performance of Urinary Filtration, Intermittent, Less than 6 Hours Per Day (ICD-10-PCS; 2018-01-02)
PROC: 5A1D70Z Performance of Urinary Filtration, Intermittent, Less than 6 Hours Per Day (ICD-10-PCS; 2018-01-04)
PROC: 5A1D70Z Performance of Urinary Filtration, Intermittent, Less than 6 Hours Per Day (ICD-10-PCS; 2018-01-07)
DX: E87.5 Hyperkalemia (principal); J69.0 Pneumonitis due to inhalation of food and vomit; N17.0 Acute kidney failure with tubular necrosis; N18.6 End stage renal disease; N17.9 Acute kidney failure, unspecified; Z68.42 Body mass index [BMI] 45.0-49.9, adult; E87.2 Acidosis; E66.01 Morbid (severe) obesity due to excess calories; I12.9 Hypertensive chronic kidney disease with stage 1 through stage 4 chronic kidney disease, or unspecified chronic kidney disease; E11.22 Type 2 diabetes mellitus with diabetic chronic kidney disease; G47.33 Obstructive sleep apnea (adult) (pediatric); Z88.1 Allergy status to other antibiotic agents; R13.12 Dysphagia, oropharyngeal phase; M10.9 Gout, unspecified; Z83.3 Family history of diabetes mellitus; E83.42 Hypomagnesemia; D72.1 Eosinophilia; E03.9 Hypothyroidism, unspecified; K82.8 Other specified diseases of gallbladder; D63.1 Anemia in chronic kidney disease
CPT/HCPCS: 36415; 36556; 36558; 51700; 71045; 74018; 74230; 74470; 76705; 76942; 77001; 80048; 80053; 81001; 81015; 82150; 82550; 82553; 82948; 83605; 83690; 83735; 83880; 84100; 84132; 84484; 85007; 85025; 85027; 85610; 85730; 86301; 86704; 86706; 87040; 87086; 87340; 90962; 93005; 94640; 94660; 96365; 96367; 96372; 96376; 97139; 99284; C1769; J0360; J0610; J1100; J1644; J1940; J1956; J2001; J2150; J2250; J2270; J2370; J2405; J2550; J7030; J7040; J7050; J7799; Q4081

== ENCOUNTER 2018-06-13 20:31 | Emergency (ER) | payer MEDICARE ==
[~2018-06-13] VITALS: Ht 368.3 cm; Wt 153.8 kg
[~2018-06-13 20:31] MED LIST changes: +GABAPENTIN300 MG PO; +LEVOTHYROXINE88 MCG PO
--- OUTSIDE RECORDS SUMMARY | 2018-06-13 20:35 | XMS REPORT | Clinical Summary ---
Author Author KOLTON [facility] Address Unknown Phone Unavailable Care Team Providers Care Consumer Lending Manager Name Role Phone Dima Pace PCP Allergies Comments Active Allergy Reactions Severity Noted Date Allergic to an antibiotic (not sure of name) Other Itching, 10/27/2013 Swelling Ketorolac Itching, 10/27/2013 Swelling Medications End Date Status Medication Sig Dispensed Refills Start Date Active insulin regular Inject 100 0 (HUMULIN,NOVOLIN) 100 Units unit/mL injection subcutaneousl y 3 (three) times daily before meals Use as directed . Active atenolol (TENORMIN) 50 MG Take 50 mg by 0 tablet mouth daily. Active isosorbide mononitrate Take 60 mg by 0 (IMDUR) 60 MG 24 hr mouth daily . tablet Active losartan (COZAAR) 50 MG Take 50 mg by 0 tablet mouth daily. Active omega-3 fatty Take by mouth 0 acids-vitamin E 1,000 mg 2 (two) times Cap daily. Active insulin NPH (HUMULIN Inject 100 0 N,NOVOLIN N) 100 unit/mL Units injection subcutaneousl y 2 (two) times daily before meals Use as directed . Active levothyroxine (SYNTHROID, Take 75 mcg 0 LEVOTHROID) 75 MCG tablet by mouth Every morning on an empty stomach. Active furosemide (LASIX) 40 MG Take 40 mg by 0 tablet mouth 2 (two) times daily. Active ALLOPURINOL ORAL Take 200 mg 0 by mouth daily. Active gabapentin (NEURONTIN) Take 100 mg 0 100 MG capsule by mouth daily. Active cetirizine (ZYRTEC) 10 MG Take 10 mg by 0 tablet mouth daily. Active diphenhydrAMINE Take 25 mg by 0 (BENADRYL) 25 mg tablet mouth every night as needed for Sleep. Active omeprazole (PRILOSEC) 40 Take 40 mg by 0 MG capsule mouth daily. Active tamsulosin (FLOMAX) 0.4 Take 0.4 mg 0 mg Cp24 24 hr capsule by mouth daily. Active traMADol (ULTRAM) 50 mg Take 50 mg by 0 tablet mouth every 6 (six) hours as needed for Pain. Active acetaminophen-codeine Take 1 tablet 0 (TYLENOL #4) 300-60 mg by mouth per tablet every 4 (four) hours as needed for Pain. 08/20/2017 acetaminophen-codeine Take 1 tablet 30 tablet 0 (TYLENOL #4) 300-60 mg by mouth 8 per tablet every 6 (six) hours as needed for Pain for up to 10 days. Max Daily Amount: 4 tablets Active Problems Problem Noted Date Parkinson's disease 08/10/2017 End of battery life of deep brain stimulator 08/10/2017 Encounters Care Team Description Date Type Specialty Tala Bauer MD 08/10/2017 Anesthesia Event Pedro Garcias MD REPLACEMENT,DEEP BRAIN STIMULATOR 08/10/2017 Surgery Pedro Garcias MD Pre-op testing 08/10/2017 Hospital Encounter Pedro Garcias MD 07/23/2017 Hospital Cardiology Encounter Pedro Garcias MD Pre-op testing 07/23/2017 Hospital Pre-Admission Testing Encounter Pedro Garcias MD Pre-op testing (Primary Dx) 07/23/2017 Orders Only Neurosurgery after 06/12/2017 Social History Date Tobacco Use Types Packs/Day Years Used Never Smoker Smokeless Tobacco: Never Used Alcohol Use Drinks/Week oz/Week Comments No Sex Assigned at Date Recorded Not on file Industry Job Start Date Occupation Not on file Not on file Not on file Travel End Travel History Travel Start No recent travel history available. Last Filed Vital Signs Time Taken Vital Sign Reading 08/10/2017 2:40 PM CDT Blood Pressure 158/60 08/10/2017 2:40 PM CDT Pulse 73 08/10/2017 2:40 PM CDT Temperature 36.7 C (98 F) 08/10/2017 2:40 PM CDT Respiratory Rate 16 08/10/2017 2:40 PM CDT Oxygen Saturation 97% - Inhaled Oxygen - Concentration 08/10/2017 6:50 AM CDT Weight 143.2 kg (315 lb 9.6 oz) 08/10/2017 6:50 AM CDT Height 185.4 cm (6' 1") 08/10/2017 6:50 AM CDT Body Mass Index 41.64 Plan of Treatment Not on file Implants Device Identifier Shelf Expiration Date Model / Serial / Lot Implanted Type Area Manufactur er 02/27/2015 [id number] / [id number] / Neurostimulator,Activa Rc Bilateral Neuro Right: Chest [employer] 39cc - [id number] NEUROMODUL Implanted: Qty: 1 on 10/28/2013 by Pedro Pendleton MD 12/28/2018 [id number] / [id number] / Stimulator Neuro Activa Pc [id number] - Neuro Right: Chest [employer]: [id number] NEUROMODUL Implanted: Qty: 1 on 08/10/2017 by Pedro Pendleton MD 01/01/2016 [id number] / / [id number] Pocket Adaptor 2x4 Right: Chest Implanted: Qty: 1 on 10/28/2013 by Pedro Garcias MD Procedures Comments Procedure Name Priority Date/Time Associated Diagnosis POCT-GLUCOSE METER Routine 08/10/2017 12:04 PM CDT TISSUE EXAM AP Routine 08/10/2017 11:44 AM CDT REPLACEMENT,DEEP BRAIN 08/10/2017 Parkinson disease (HCC) STIMULATOR 9:00 AM CDT End of battery life of intrathecal infusion pump Special Needs (O-ARM, [employer] REP, DIFFICULT INTUBATION ) PROCEDURE W/ C-ARM 08/10/2017 Parkinson disease (HCC) 9:00 AM CDT End of battery life of intrathecal infusion pump Special Needs (O-ARM, [employer] REP, DIFFICULT INTUBATION ) POCT-GLUCOSE METER Routine 08/10/2017 8:04 AM CDT BUN AND CREATININE Routine 08/10/2017 7:58 AM CDT TRANSFUSION SERVICE 07/24/2017 REPORT - SCAN 5:56 PM CDT XR CHEST 2 VIEWS Routine 07/23/2017 Pre-op testing 4:30 PM CDT APTT Routine 07/23/2017 Pre-op testing 3:59 PM CDT PROTHROMBIN TIME/INR Routine 07/23/2017 Pre-op testing 3:59 PM CDT CBC W/PLT COUNT & AUTO Routine 07/23/2017 Pre-op testing DIFFERENTIAL 3:55 PM CDT TYPE AND SCREEN, Routine 07/23/2017 Pre-op testing AUTOMATED 3:55 PM CDT URINALYSIS W/ REFLEX Routine 07/23/2017 Pre-op testing URINE CULTURE 3:55 PM CDT CBC W/PLT COUNT & AUTO Routine 07/23/2017 Pre-op testing DIFFERENTIAL 3:55 PM CDT BASIC METABOLIC PANEL (7) Routine 07/23/2017 Pre-op testing 3:55 PM CDT URINE CULTURE Routine 07/23/2017 Pre-op testing 3:55 PM CDT ECG 12-LEAD Routine 07/23/2017 3:54 PM CDT Procedure Note - Interface, External Ris In - 07/23/2017 4:15 PM CDT Ventricula r Rate 71 BPM Atrial Rate 71 BPM P-R Interval 170 ms QRS Duration 82 ms Q-T Interval 380 ms QTC Calculatio n(Bazett) 412 ms P [place] 1 degrees R [place] 18 degrees T [place] 79 degrees Normal sinus rhythm Normal ECG When compared with ECG of 09:18, No significan t change was found ECG 12-LEAD STAT 07/23/2017 Pre-op testing 3:54 PM CDT after 06/12/2017 Results * POC-Glucose meter (08/10/2017 12:04 PM CDT) Only the most recent of 2 results within the time period is included. POC-Glucose Meter 169 (H)Comment: TESTED AT 70 - 110 mg/dL [facility] [address] [facility] [address] Specimen Blood Performing Organization Address City/State/Zipcode Phone [place] [address] [facility] * Tissue Exam (08/10/2017 11:44 AM CDT) Case Report Surgical Pathology [facility] Report [facility] Case: [id number] Authorizing Provider:Pedro Garcias MDCollected: 08/10/2017 1144 Ordering Location: [facility] PERIOPERATIVE Received: 08/10/2017 1237 SERVICES Pathologist: Gurvinder Zapata MD Specimen:Hardware, implantable pulse generator DIAGNOSIS 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, CHEST, [facility] REMOVAL: [facility] - AUTOMOBILE SEAT COVER INSTALLER (GROSS DIAGNOSIS) [place]/DB/pl Signing Pathologist Direct Phone Line: [phone] CPT Code(s) 06474 [facility] CLINICAL HISTORY Parkinson's disease, end of [facility] battery life of intrathecal [facility] infusion pump SPECIMEN SOURCE Implantable pulse generator [facility] GROSS DESCRIPTION Received fresh labeled [facility] "hardware", description [facility] "implantable pulse generator" is a 6.5 x 5.5 x 2.0 cm metallic medical service representative. The specimen is for gross identification only. DB/pl Specimen Tissue - Hardware Performing Organization Address City/[facility]/Zipcode Phone Number [place] [phone] * BUN and Creatinine (08/10/2017 7:58 AM CDT) BUN 59 (H) 7 - 21 mg/dL [facility] Creatinine 2.19 (H) 0.57 - 1.25 mg/dL [facility] EGFR 29Comment: ESTIMATED GFR IS mL/min/1.73 sq m [facility] NOT ACCURATE CREATININE [facility] CLEARANCE IN PREDICTING GLOMERULAR FILTRATION RATE. ESTIMATED GFR IS NOT APPLICABLE FOR DIALYSIS PATIENTS. Specimen Blood Performing Organization Address City/[facility]/Zipcode Phone Number [place] [phone] [facility] * TRANSFUSION SERVICE REPORT - SCAN (07/24/2017 5:56 PM CDT) Narrative Performed At * XR chest 2 views (07/23/2017 4:30 PM CDT) Narrative Performed At FINAL REPORT [facility] Chest x-ray Clinical History: pre op testing [...] MD Report Verified Date/Time:07/23/2017 17:03:06 Reading Location: [address] Radiology Reading Room Procedure Note Interface, [...] Report Verified Date/Time: 07/23/2017 17:03:06 Reading Location: [address] Radiology Reading Room Performing Organization Address City/State/Zipcode Phone Number [facility] * aPTT (07/23/2017 3:59 PM CDT) PTT 29.0 22.5 - 36.0 seconds [facility] Specimen Blood Performing Organization Address City/[facility]/Zipcode Phone Number [facility] [address] [place] [address] [facility] * Prothrombin time/INR (07/23/2017 3:59 PM CDT) Protime 14.2 11.7 - 14.7 seconds [facility] INR 1.1 <=5.9 [facility] Specimen Blood Narrative Performed At RECOMMENDED COUMADIN/WARFARIN INR THERAPY RANGES [facility] STANDARD DOSE: 2.0 - 3.0 Includes: PROPHYLAXIS for venous thrombosis, [facility] systemic embolization; TREATMENT for venous thrombosis and/or pulmonary embolus. HIGH RISK: Target INR is 2.5-3.5 for patients with mechanical heart valves. Performing Organization Address City/[facility] Cent[facility]ode Phone Number [place] [phone] [place] [address] [facility] * Urinalysis w/Microscopic + Reflex to Culture (07/23/2017 3:55 PM CDT) Color, UA Light Yellow [facility] Clarity, UA Clear [facility] Specific [place], UA 1.008 1.001 - 1.035 [facility] pH, UA 5.0 5.0 - 8.0 [facility] Protein, UA Negative Negative [facility] Glucose, UA Negative Negative [facility] Ketones, UA Negative Negative [facility] Bilirubin, UA Negative Negative [facility] Blood, UA Negative Negative [facility] Nitrite, UA Negative Negative [facility] Leukocytes, UA Moderate (A) Negative [facility] Urobilinogen, UA 0.2 0.2 - 1.0 mg/dL [facility] RBC, UA 1 /HPF [facility] WBC, UA 7 /HPF [facility] Bacteria, UA Rare [facility] Specimen Source [facility] Specimen Urine Performing Organization Address City/[facility]/Zipcode Phone Number [address] [address] [facility] * Type and screen, automated (07/23/2017 3:55 PM CDT) ABO/RH AUTOMATED (BEAKER) O POSITIVE [facility] Ab Scrn NEGATIVE [facility] Specimen Blood Performing Organization Address City/[facility]/[place] [address] [facility] * CBC with platelet count + automated diff (07/23/2017 3:55 PM CDT) WBC 9.7 3.5 - 10.5 K/L [facility] RBC 4.07 (L) 4.63 - 6.08 M/L [facility] Hemoglobin 11.3 (L) 13.7 - 17.5 GM/DL [facility] Hematocrit 37.3 (L) 40.1 - 51.0 % [facility] MCV 91.6 79.0 - 92.2 fL [facility] MCH 27.8 25.7 - 32.2 pg [facility] MCHC 30.3 (L) 32.3 - 36.5 GM/DL [facility] RDW 16.3 (H) 11.6 - 14.4 % [facility] Platelets 154 150 - 450 K/CU MM [facility] MPV 9.7 9.4 - 12.4 fL [facility] nRBC 0 0 - 0 /100 WBC [facility] % Neutros 67 % [facility] % Lymphs 16 % [facility] % Monos 11 % [facility] % Eos 5 % [facility] % Baso 1 % [facility] # Neutros 6.50 (H) 1.78 - 5.38 K/L [facility] # Lymphs 1.55 1.32 - 3.57 K/L [facility] # Monos 1.03 (H) 0.30 - 0.82 K/L [facility] # Eos 0.48 0.04 - 0.54 K/L [facility] # Baso 0.05 0.01 - 0.08 K/L [facility] Immature 1 0 - 1 % [facility] Granulocytes-Relative [facility] Specimen Blood Performing Organization Address City/[facility]/Zipcode Phone Number [address] * Urine culture (07/23/2017 3:55 PM CDT) Result 50-59,000 col/mL skin erick [facility] Specimen Urine - Urine, Unspecified Source Performing Organization Address City/[facility]/[place] [address] [phone] * Basic Metabolic Panel (07/23/2017 3:55 PM CDT) Sodium 141 136 - 145 meq/L [facility] Potassium 4.5 3.5 - 5.1 meq/L [facility] Chloride 104 98 - 107 meq/L [facility] CO2 28 22 - 29 meq/L [facility] BUN 71 (H) 7 - 21 mg/dL [facility] Creatinine 2.70 (H) 0.57 - 1.25 mg/dL [facility] Glucose 142 (H) 70 - 105 mg/dL [facility] Calcium 9.2 8.4 - 10.2 mg/dL [facility] EGFR 23Comment: ESTIMATED GFR IS mL/min/1.73 sq m [facility] NOT ACCURATE CREATININE [facility] CLEARANCE IN PREDICTING GLOMERULAR FILTRATION RATE. ESTIMATED GFR IS NOT APPLICABLE FOR DIALYSIS PATIENTS. Specimen Blood Performing Organization Address City/State/Zipcode Phone Number [facility] [address] [place] [address] [facility] * ECG 12 lead (07/23/2017 3:54 PM CDT) Narrative Performed At Ventricular Rate 71 BPM GE MUSE Atrial Rate 71 BPM P-R Interval 170 ms QRS Duration 82 ms Q-T Interval 380 ms QTC Calculation(Bazett) 412 ms P Wheeler 1 degrees R Wheeler 18 degrees T Wheeler 79 degrees Normal sinus rhythm Normal ECG [...] 380 ms QTC Calculation(Bazett) 412 ms P [place] 1 degrees R Wheeler 18 degrees T [place] 79 degrees Normal sinus rhythm Normal ECG When compared with ECG of 28-OCT-2013 09:18, No significant change was found Confirmed by MD NISREEN, IHAB ([id number]) on 07/23/2017 10:08:24 PM Performing Organization Address City/State/Zipcode Phone Number [facility] after 06/12/2017 Insurance Payer Benefit Subscriber ID Type Phone Address Plan / Group MEDICARE MEDICARE A xxxxxxxxxx Medicare B MCR SUPPLEMENT/INDIVIDUAL AARP/UNITE xxxxxxxxxxx [facility] D HEALTHCARE Advance Directives For more information, please contact: [address] [address] Date Inactivated Comments Code Status Date Activated 08/10/2017 6:21 PM Full Code 08/10/2017 7:20 AM This code status was determined by: Patient
--- NOTE | 2018-06-13 22:17 | Diagnostic Imaging Report ---
EXAMINATION: CHEST 2 VIEWS INDICATION: NAUSEA X1 WEEK COMPARISON: 12/22/2017. FINDINGS: TUBES and LINES: Right sided tunneled catheter with distal tip projected on the cavoatrial junction. Battery pack projected on the right hemithorax. LUNGS: Mild pulmonary venous congestion and interstitial edema. PLEURA: Probable bilateral small pleural effusions. No pneumothorax. HEART AND MEDIASTINUM: The cardiac silhouette is mildly enlarged. BONES AND SOFT TISSUES: No acute osseous lesion. UPPER ABDOMEN: No free air under the diaphragm. IMPRESSION: Mild pulmonary venous congestion and interstitial edema. Signed by: Dr. Christina Foreman M.D. on 06/13/2018 10:14 PM
[2018-06-13 22:19] LABS: BASOPHILS % 0.4 % (0.0-1.0); EOSINOPHILS # (AUTO) 0.3 (0.0-0.4); EOSINOPHILS % 3.8 % (0.0-6.0); HEMATOCRIT 36.4 % (38.2-49.6); HEMOGLOBIN 11.6 g/dL (14.0-18.0); LYMPHOCYTES # (AUTO) 1.1 (1.0-3.2); LYMPHOCYTES % 14.3 % (18.0-39.1); MEAN CORPUSCULAR HEMOGLOBIN 30.4 pg (28-32); MEAN CORPUSCULAR HGB CONC 31.9 g/dL (31-35); MEAN CORPUSCULAR VOLUME 95.5 fL (81-99); MONOCYTES # (AUTO) 0.9 (0.2-0.8); MONOCYTES % 11.1 % (4.4-11.3); NEUTROPHILS # (AUTO) 5.3 (2.1-6.9); PLATELET COUNT 125 x10e3/uL (140-360); RED BLOOD COUNT 3.81 x10e6/uL (4.3-5.7); RED CELL DISTRIBUTION WIDTH 14.8 % (11.7-14.4)
[2018-06-13] MEDS ORDERED: PANTOPRAZOLE 40 MG 10ML VIAL IV STA ×2 (22:20)
[2018-06-13] MEDS ORDERED: ONDANSETRON HCL INJ 2MG/ML 2ML 2 MG/ML VIAL IV STA ×2 (22:20)
[2018-06-13 22:34] LABS: ALBUMIN 3.6 g/dL (3.5-5.0); ALBUMIN/GLOBULIN RATIO 0.9 (0.8-2.0); ANION GAP 21.1 mmol/L (8-16); CREATININE, SERUM 10.5 mg/dL (0.72-1.25)
[2018-06-13 22:39] LABS: POTASSIUM 5.1 mmol/L (3.5-5.1)
[2018-06-13 22:41] LABS: CREATINE KINASE MB 3.5 ng/mL (0-5.0)
[2018-06-13 23:24] VITALS: BP 129/49
== END 2018-06-13 23:34 | disposition home or self-care (01) ==
LOC: ER 20:31
DX: R11.0 Nausea (principal); I12.0 Hypertensive chronic kidney disease with stage 5 chronic kidney disease or end stage renal disease; E11.22 Type 2 diabetes mellitus with diabetic chronic kidney disease; N18.6 End stage renal disease; Z99.2 Dependence on renal dialysis; J44.9 Chronic obstructive pulmonary disease, unspecified; E03.9 Hypothyroidism, unspecified
CPT/HCPCS: 36415; 71046; 80053; 82150; 82550; 82553; 83690; 84484; 85025; 96374; 99284; C9113; J2405

== ENCOUNTER 2018-11-06 11:57 | Emergency (ER) | payer MEDICARE ==
[~2018-11-06] VITALS: Ht 368.3 cm; Wt 153.8 kg
--- OUTSIDE RECORDS SUMMARY | 2018-11-06 12:01 | XMS REPORT | Clinical Summary ---
Author Author [facility] Address Unknown Phone Unavailable Care Team Providers Care Electronics Production Supervisor Name Role Phone Dima Pace PCP Allergies [...] 4 (four) hours as needed for Pain. Active Problems Problem Noted Date Parkinson's disease 08/10/2017 End of battery life of deep brain stimulator 08/10/2017 Social History Date Tobacco Use Types Packs/Day Years Used Never Smoker Smokeless Tobacco: Never Used Alcohol Use Drinks/Week oz/Week Comments No Sex Assigned at Date Recorded Not on file Industry Job Start Date Occupation Not on file Not on file Not on file Travel End Travel History Travel Start No recent travel history available. Last Filed Vital Signs Not on file Plan of Treatment Not on file Implants Device Identifier Shelf Expiration Date Model / Serial / Lot Implanted Type Area Manufactur er 02/27/2015 [id number] / [id number] / Neurostimulator,Activa Rc Bilateral Neuro Right: Chest [employer] 39cc - [id number] NEUROMODUL Implanted: Qty: 1 on 10/28/2013 by Pedro Pendleton MD 12/28/2018 [id number] / [id number] / Stimulator Neuro Activa Pc [id number] - Neuro Right: Chest [employer]: [id number] NEUROMODUL Implanted: Qty: 1 on 08/10/2017 by Pedro Pendleton MD 01/01/2016 [id number] / / [id number] Pocket Adaptor 2x4 Right: Chest Implanted: Qty: 1 on 10/28/2013 by Pedro Garcias MD Results Not on fileafter 11/05/2017 Insurance Payer Benefit Subscriber ID Type Phone Address Plan / Group MEDICARE MEDICARE A xxxxxxxxxx Medicare B MCR SUPPLEMENT/INDIVIDUAL AARP/UNITE xxxxxxxxxxx [facility] D HEALTHCARE Advance Directives For more information, please contact: [facility] [address] [place] [address] Date Inactivated Comments Code Status Date Activated 08/10/2017 6:21 PM Full Code 08/10/2017 7:20 AM This code status was determined by: Patient
== END 2018-11-06 12:28 | disposition home or self-care (01) ==
LOC: ER 11:57
DX: S20.412A Abrasion of left back wall of thorax, initial encounter (principal); X58.XXXA Exposure to other specified factors, initial encounter; Z20.828 Contact with and (suspected) exposure to other viral communicable diseases; E11.22 Type 2 diabetes mellitus with diabetic chronic kidney disease; I12.0 Hypertensive chronic kidney disease with stage 5 chronic kidney disease or end stage renal disease; N18.6 End stage renal disease; Z99.2 Dependence on renal dialysis; Z79.4 Long term (current) use of insulin; J44.9 Chronic obstructive pulmonary disease, unspecified; E03.9 Hypothyroidism, unspecified; Z86.73 Personal history of transient ischemic attack (TIA), and cerebral infarction without residual deficits; I25.2 Old myocardial infarction; E11.40 Type 2 diabetes mellitus with diabetic neuropathy, unspecified
CPT/HCPCS: 99282

== ENCOUNTER 2019-05-13 15:20 | Inpatient (IN) | payer MEDICARE ==
[~2019-05-13] VITALS: Ht 185.4 cm; Wt 137.0 kg
[~2019-05-13 15:20] MED LIST changes: +COUMADIN3 MG PO; +PANTOPRAZOLE SO40 MG PO; +RENAGEL800 MG PO
--- NOTE | 2019-05-13 15:34 | NUR ---
pt arrived to room 205 in wheelchair from home. pt awake, alert, no signs of distress. at bedside.
[2019-05-13 15:35] VITALS: BP 112/49
[2019-05-13 16:05] VITALS: BP 112/49
[2019-05-13] MEDS ORDERED: MONTELUKAST SOD10 MG PO (16:47)
[2019-05-13] MEDS ORDERED: CALCIUM ACETAT667 M1 PO (16:47)
[2019-05-13] MEDS ORDERED: WARFARIN SOD 3 MG TAB PO SCH (17:00)
[2019-05-13] MEDS ORDERED: DEXTROSE 50% SYRINGE 50 ML IV PRN (17:30)
[2019-05-13 18:18] LABS: BASOPHILS # (AUTO) 0.1 (0.0-0.1); BASOPHILS % 0.6 % (0.0-1.0); EOSINOPHILS # (AUTO) 0.6 (0.0-0.4); EOSINOPHILS % 5.6 % (0.0-6.0); HEMATOCRIT 30.3 % (38.2-49.6); HEMOGLOBIN 9.5 g/dL (14.0-18.0); LYMPHOCYTES # (AUTO) 1.6 (1.0-3.2); LYMPHOCYTES % 13.7 % (18.0-39.1); MEAN CORPUSCULAR HEMOGLOBIN 29.3 pg (28-32); MEAN CORPUSCULAR HGB CONC 31.4 g/dL (31-35); MEAN CORPUSCULAR VOLUME 93.5 fL (81-99); MONOCYTES # (AUTO) 1.3 (0.2-0.8); MONOCYTES % 11.6 % (4.4-11.3); NEUTROPHILS # (AUTO) 7.8 (2.1-6.9); NEUTROPHILS % 67.7 % (38.7-80.0); PLATELET COUNT 204 x10e3/uL (140-360); RED BLOOD COUNT 3.24 x10e6/uL (4.3-5.7); RED CELL DISTRIBUTION WIDTH 16.8 % (11.7-14.4)
[2019-05-13 18:28] LABS: INR 0.92; PROTHROMBIN TIME 12.9 seconds (11.9-14.5)
[2019-05-13] MEDS: INSULIN REGULAR, HUMAN 100 UNIT/1 ML 3ML VIAL SQ SCH (18:35)
[2019-05-13 18:38] LABS: ALBUMIN 2.9 g/dL (3.5-5.0); ALBUMIN/GLOBULIN RATIO 0.7 (0.8-2.0); ANION GAP 21.2 mmol/L (8-16); CALCIUM 8.4 mg/dL (8.4-10.2); CREATININE, SERUM 7.13 mg/dL (0.72-1.25); POTASSIUM 4.2 mmol/L (3.5-5.1)
--- NOTE | 2019-05-13 19:15 | NUR ---
bedside shift report given to night nurse RN. pt in stable condition. all safety measures in place.
[2019-05-13] MEDS: WARFARIN SOD 2 MG TAB PO SCH (19:27)
[2019-05-13 20:00] VITALS: BP 103/41
[2019-05-13 21:07] VITALS: BP 103/41
[2019-05-13] MEDS: NPH, HUMAN INSULIN ISOPHANE 100 UNIT/1 ML 3ML VIAL SQ SCH (21:30)
[2019-05-14] VITALS (8 sets, daily range): BP systolic 96–122; BP diastolic 37–68
[2019-05-14] MEDS ORDERED: GABAPENTIN300 MG PO (02:19)
[2019-05-14] MEDS ORDERED: GABAPENTIN 300 MG CAP PO PRN (02:30)
[2019-05-14] MEDS: HYDROCODONE/APAP 10MG-325MG TAB PO PRN ×2 (06:30→18:34)
[2019-05-14] MEDS: LEVOTHYROXINE SODIUM 88 MCG TAB PO SCH (06:40)
--- NOTE | 2019-05-14 07:00 | NUR ---
RCD PT AT BED PT IS ALERT AND ORIENTED PT RESTING ON BED IV PATENT BY SALINE FLUSH FAMILY AT BED SIDE BED LOW AND LOCKED CALL LIGHT IN REACH
[2019-05-14] MEDS: INSULIN REGULAR, HUMAN 100 UNIT/1 ML 3ML VIAL SQ SCH ×3 (07:30→16:30)
[2019-05-14] MEDS: PANTOPRAZOLE SOD 40 MG TABEC PO SCH (07:30)
[2019-05-14] MEDS: CALCIUM ACETATE 667 MG GELCAP PO SCH ×3 (08:00→17:00)
[2019-05-14] MEDS: ATENOLOL 50 MG TAB PO SCH (09:00)
[2019-05-14] MEDS: MONTELUKAST SODIUM 10 MG TAB PO SCH (09:00)
[2019-05-14] MEDS: NPH, HUMAN INSULIN ISOPHANE 100 UNIT/1 ML 3ML VIAL SQ SCH ×2 (09:00→20:57)
[2019-05-14] MEDS ORDERED: ALLOPURINOL 300 MG TAB PO SCH (09:00)
[2019-05-14] MEDS: TAMSULOSIN HCL 0.4 MG CAP PO SCH (09:00)
--- NOTE | 2019-05-14 09:10 | NUR ---
MIGUELINA AND TALKED DR HERNANDEZ REGARDING HD HE SAID CALL TO [facility] ,[facility]
[2019-05-14 12:00] LABS: INR 1.31; PROTHROMBIN TIME 17.2 seconds (11.9-14.5)
--- NOTE | 2019-05-14 13:40 | Consultation ---
DATE OF CONSULTATION: 05/14/2019 HISTORY OF PRESENT ILLNESS: Mr. Morgan is a pleasant gentleman, who has complicated medical history. He has history of end-stage renal disease on hemodialysis, history of morbidly obese patient, congestive heart failure, diabetes mellitus with neuropathy, gout, anemia of chronic disease, debility, and sleep apnea. The patient also has hypertension, TIA, coronary artery disease, myocardial infarction in 1989, COPD, and hypothyroidism. The patient was in my office yesterday. Apparently, he was in dialysis the day before yesterday, but he was not able to stand up. He came to my office visit. He was not able to stand up. He is extremely weak. It was also noted that his heel is getting progressively worse with redness and swelling and abscess formation. The patient was sent to the hospital because of sepsis, infection, and extreme weakness. He is pleasant. At the present time complaining of pain in his foot. The patient, who is well known to Dr. Aron Moffett. The patient is admitted for debridement. The patient has been having problem with this foot for several months, but got progressively worse and actually he was back here in April. The patient is currently lying in bed comfortably. His is at the bedside. History was taken mainly from the patient. I also reviewed the records from previous admission. As mentioned above, he was here in April. PAST MEDICAL HISTORY: End-stage renal disease, morbidly obese patient, diabetes mellitus with neuropathy, peripheral vascular disease, hypothyroidism, enlargement of the prostate, history of CVA, history of coronary artery disease, history of congestive heart failure, and history of neuropathy. PAST SURGICAL HISTORY: Multiple debridement and IV access for dialysis before. ALLERGIES: CEFTRIAXONE, BUT HE DID WELL WITH CEPHALOSPORIN. SOCIAL HISTORY: There is no smoking, drug abuse, or alcohol abuse. FAMILY HISTORY: Diabetes mellitus and hypertension. REVIEW OF SYSTEMS: GENERAL: He is feeling weak. He need maximal assist to stand up. HEENT: There is no headache, visual changes, or hearing changes. GI: There is no nausea, no vomiting, no diarrhea. CARDIAC: There is no arrhythmia. NEURO: No seizure activity. SKIN: There is no rash. LABORATORY DATA: His white count 11.5 and hemoglobin 9.5. Sodium 134, potassium 4.2 with creatinine of 7.3. MEDICATION LIST: He is currently on Flomax, Singulair, hydrocodone, and gabapentin. PHYSICAL EXAMINATION: GENERAL: He is currently alert and oriented. Does not seem to be in acute distress. VITAL SIGNS: Stable, currently afebrile. HEENT: He is not icteric. NECK: Supple. CHEST: Clear. HEART: S1 and S2. No S3, S4, or murmur. ABDOMEN: Soft. Bowel sounds present. No tenderness. EXTREMITIES: On the right heel, there are gangrenous changes. There is also redness and swelling noted at the heel. IMPRESSION: 1. Concerned about abscess of his heel, concerned about osteomyelitis. 2. Peripheral vascular disease. 3. Diabetes mellitus with neuropathy. 4. Obesity. 5. Sleep apnea. 6. Chronic kidney disease, on hemodialysis. 7. End-stage renal disease, on hemodialysis. 8. Congestive heart failure. RECOMMENDATIONS: 1. Put the patient on vancomycin and cefepime for the time being. Would need surgical debridement. We will send culture sensitivity. 2. Debility, would need PT/OT. I do not think he can go back home. He has an elderly , which is very hard for her to take care of him. 3. Diabetes mellitus with neuropathy. 4. Congestive heart failure. 5. As above, we will follow with you. MD JAYESH Wagner/ALLEN /[id number]
[2019-05-14] MEDS ORDERED: ALBUMIN 25% 12.5GM 0.25 GM/ML BTL IV PRN (13:45)
--- NOTE | 2019-05-14 14:38 | NUR ---
83 YO DIABETIC MALE HX OF DIABETIC ULCERATIONS , RIGHT HEEL ABSCESS ARSEN 17 PATIENT ON CONSERVATIVE PUP STATUS AND ALTERNATING PRESSURE MATTRESS LABS: WBC- 11.51,HGB- 9.5, GLUCOSE- 382 SKIN ASSESSMENT COMPLETE PATIENT PRESENTS WITH MULTIPLE DIABETIC ULCERATIONS AND NON HEALING AREAS FOLLOWS : #1 RIGHT UPPER DORSAL FOOT 2CM X1CM DARK BLISTER #2 RIGHT LOWER DORSAL FOOT .3CM X 6CM DARK BLISTER #3 RIGHT FOOT TIPS OF 1,2,3RD TOES .3CM X6CM DARK BLISTER #4 RIGHT HEEL NECROTIC ESCHAR 11CM X8CM #5 LEFT 5TH MET HEAD 1.5CMX1.5CM ESCHAR #6 LEFT 5TH TOE 1CM X1CM ESCHAR #7 LEFT GREAT TOE .5CM X.5CM ESCHAR #8 RIGHT HAND 4TH FINGER 2.5CM X 2CM ESCHAR RECOMMENDATIONS: NURSING TO CONTINUE TO MAINTAIN CONSERVATIVE PUP STATUS AND INTERVENTIONS AND ALTERNATING PRESSURE MATTRESS NURSING TO CONTINUE TO ASSIST PATIENT OUT OF BED FOR MEALS AND MUCH TOLERATED NURSING TO CLEAN RIGHT 4TH FINGER ESCHAR DAILY WITH NS AND APPLY BETADINE 4X4 AND KERLIX SECURE WITH TAPE OR LIGHT COBAN NURSING TO CLEAN BILATERAL FEET AND TOES AND RIGHT HEEL ESCHAR DAILY WITH NS AND APPLY BETADINE 4X4 AND KERLIX SECURE WITH TAPE OR LIGHT COBAN
--- NOTE | 2019-05-14 15:45 | Consultation ---
DATE OF CONSULTATION: 05/14/2019 HISTORY OF PRESENT ILLNESS: This is an 83-year-old gentleman, well known to our Nephrology Service, underlying history of end-stage renal disease, type 2 diabetes, hypertension, hypothyroidism, prostate enlargement, history of cellulitis lower extremity, and infection. Apparently, he has been admitted for antibiotics. Currently scheduled for dialysis. Denies any fever, chills, nausea, or vomiting. LABORATORY DATA: Has had laboratory tests done, shows white count 11.5 and hemoglobin 9.5. Potassium 4.2, creatinine 7.1, blood sugar is elevated, total protein 7.2, calcium is 8.4. ALLERGIES: HE IS ALLERGIC TO CEFTRIAXONE. MEDICATIONS: Currently, he is on warfarin 4 mg, Flomax 0.4 mg daily. He is on NPH insulin, levothyroxine 88 mcg daily, gabapentin 300 mg p.o. q.8 p.r.n. neuropathy, hydrocodone p.r.n., calcium acetate p.o. t.i.d. with meals, atenolol 25 mg daily, allopurinol 300 mg p.o. daily which I am going to change to 200 mg daily. He is also on vancomycin 1 g IV every Sunday, Sunday, and Sunday after dialysis, cefepime 1 g IV q.24. I will also adjust the allopurinol dose to 100 mg p.o. q.8 p.r.n. neuropathy given his end-stage renal disease status. SOCIAL HISTORY: The patient is , has a very supportive . FAMILY HISTORY: Significant for diabetes. The patient has an existing dialysis catheter plus a right upper arm AV fistula. PHYSICAL EXAMINATION: GENERAL: Awake, alert, and oriented x3, lying supine. VITAL SIGNS: Blood pressure of 122/56, pulse rate 59, afebrile, oxygen saturation 96% on room air. HEAD AND NECK: Cornea clear. Oral mucosa moist. LUNGS: Bibasilar rales. HEART: S1 and S2 audible. ABDOMEN: Soft and nontender. EXTREMITIES: Both upper and lower extremity, 1+ edema. Cellulitis noted, lower extremity. IMPRESSION AND PLAN: 1. Evidence of fluid overload. 2. End-stage renal disease. 3. Hypertension. 4. Hypothyroidism. 5. 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 6. End-organ damage due to diabetes with peripheral neuropathy. 7. Peripheral vascular disease. 8. Atherosclerotic cardiovascular disease. 9. Congestive heart failure. PLAN: On hemodialysis, fluid restriction, renal diet, protein supplementation. Medications adjusted. Please see orders. MD DAVID Sánchez/MODL /[id number]
[2019-05-14] MEDS ORDERED: CEFEPIME 1GM/NS 0.9% 50 ML 50 ML IV SCH (16:00)
[2019-05-14] MEDS: WARFARIN SOD 2 MG TAB PO SCH (17:00)
[2019-05-14] MEDS ORDERED: VANCOMYCIN 1GM/NS 250 ML 250 ML IV SCH (17:00)
[2019-05-14] MEDS ORDERED: SODIUM CHLORIDE 0.9% 250ML 250 ML ONE (17:26)
--- NOTE | 2019-05-14 17:30 | NUR ---
DIALYSIS DONE AND REMOVED 3 LTRS
[2019-05-14] MEDS: CEFEPIME 1GM/NS 0.9% 50 ML 50 ML IV SCH (17:36)
[2019-05-14] MEDS: VANCOMYCIN 1GM/NS 250 ML 250 ML IV SCH (18:30)
[2019-05-14] MEDS ORDERED: POVIDONE IODINE 10% 120 ML BTL EXT PRN (18:45)
--- NOTE | 2019-05-14 18:45 | NUR ---
PT RESTING ON BED BED SIDE REPORT GIVEN TO ONCOMING NURSE
--- NOTE | 2019-05-14 19:10 | NUR ---
Patient visited in room during nursing rounds. at bedside. X-ray of foot in progress. Right heel ulcer gangrenous and will be medicated and dressed tonight. A small ulcer on dorsal side of right foot and as well as on 3rd right toe, 1st left toe and 5th left toe. 4th finger dorsal side gangrenous and covered with coban dressing. Pt had dialysis today. MISAEL fistula working and ZA fistula for dialysis not working. Call pena within reach. Bed alarm active. Pt on CPAP at night and non-ambulatory.
--- NOTE | 2019-05-14 19:57 | Diagnostic Imaging Report ---
Bilateral foot 3 - views HISTORY: Pain. Evaluate access osteomyelitis. COMPARISON: Right foot x-ray series dated 04/17/2019. FINDINGS: No displaced fracture. Status post ORIF of left distal fibular fracture with plate and screw construct not completely visualized. Degenerative changes of the tarsometatarsal joints bilaterally right greater than left. Bilateral small plantar calcaneal enthesophyte and Achilles enthesopathy. Extensive vascular calcifications. There is a 1.3 cm linear metallic density in the plantar soft tissues of the right forefoot between the proximal first and second phalanges consistent with a foreign body (appearance of a needle). IMPRESSION: 1. Redemonstration of a 1.3 cm linear metallic density in the plantar soft tissues of the right forefoot between the proximal first and second phalanges consistent with a foreign body (appearance of a needle). 2. No significant erosive changes suggestive of osteomyelitis; if clinical concern for abscess and/or osteomyelitis remains, consider further evaluation with CT examination with contrast. Signed by: Dr. Christina Foreman M.D. on 05/14/2019 7:54 PM
--- NOTE | 2019-05-14 20:50 | NUR ---
Wound on right heel and dorsal wound on right foot were medicated with Santyl ointment and all were covered with 4x4 gauze and wrapped with kerlix. Ulcer wounds on 3rd right toe, 1st left toe and 5th left toe were medicated with Betadine and covered with 4x4 gauze and wrapped with kerlix.
[2019-05-15] VITALS (8 sets, daily range): BP systolic 94–114; BP diastolic 42–60
--- NOTE | 2019-05-15 01:07 | Consultation ---
DATE OF CONSULTATION: 05/14/2019 CHIEF COMPLAINT AND HISTORY OF CHIEF COMPLAINT: Mr. Morgan is a most pleasant 83-year-old gentleman with bilateral foot wounds. He was admitted back in April with sepsis. Ultimately was discharged and has continued to have a worsening of the wounds bilateral feet. In particular, the right foot has a thickened, dry, very dark eschar on the posterior plantar aspect, which is continuing to demarcate. There is a surrounding erythema and cellulitis and likely abscess underlying. The patient is in need of debridements and was admitted for the same. He apparently was very weak at home and unable to stand when he visited Dr. Lubin's office. His previous medical history does indeed include hemodialysis as well as obesity, congestive heart failure, diabetes, neuropathy, gout, anemia, sleep apnea. He has hypertension, history of TIA, coronary artery disease, myocardial infarction, COPD, hypothyroidism. The patient is on a Sunday, Sunday, Sunday dialysis schedule while in house here. The patient's IV antibiotics are being administered accordingly. The previous surgical history is otherwise well documented elsewhere within the chart. He has had multiple debridements and IV access for dialysis. The patient's allergies are well documented elsewhere within the chart as are his current medications. SOCIAL HISTORY: No smoking or alcohol abuse. FAMILY HISTORY: His family history is positive for diabetes and hypertension as well. REVIEW OF SYSTEMS: GENERAL: He is overall weak with regard to his general health. HEENT: Clear. GI: No nausea, vomiting, or diarrhea currently. CARDIAC: There is no arrhythmia. NEURO: Positive for severe distal peripheral neuropathy. SKIN: There are the aforementioned ulcerations. LABORATORY DATA: Noted with an elevated white count. MEDICATIONS: His current medications are well documented elsewhere within the chart. PHYSICAL EXAMINATION: EXTREMITIES: Physical evaluation of lower extremity vascular status, the patient has nonpalpable pedal pulses in either dorsalis pedis or posterior tibial. SKIN: Temperature is warm to cool. Capillary refill is adequate to the distal digits. NEUROLOGIC: Has a loss of protective sensation as evidenced by [place] monofilament testing. DERMATOLOGIC: There is a very large wound posterior right heel and distal digital wounds on digits 2, 3, 4, and 5 of the right foot as well as on the 5th digit and 1st digit of the left foot. MUSCULOSKELETAL: Evaluation is otherwise concerning for osteomyelitis of the heel. We will debride and see if there is any bone involvement. The peripheral arterial disease is certainly involved with diabetes, neuropathy, obesity, sleep apnea, chronic renal disease, on hemodialysis, end-stage renal disease, congestive heart failure. PLAN: At this point, the patient's medications are being monitored and maintained by Dr. Pace. Dr. Lubin has started IV antibiotics on the dialysis schedule. He needs surgical debridement for all the aforementioned wounds, but in particular, the posterior heel. We will obtain culture and sensitivity and evaluate the bone at that point. The surgery will be scheduled around his dialysis schedules as well perhaps Sunday after dialysis for debridements assuming he stabilizes and improves overall tomorrow with IV antibiotics and local wound care as well as dialysis. We will schedule his I and D and debridement accordingly. JANELLE Dye/ALLEN /[id number]
[2019-05-15] MEDS: PANTOPRAZOLE SOD 40 MG TABEC PO SCH (06:20)
[2019-05-15] MEDS: LEVOTHYROXINE SODIUM 88 MCG TAB PO SCH (06:20)
[2019-05-15] MEDS: INSULIN REGULAR, HUMAN 100 UNIT/1 ML 3ML VIAL SQ SCH ×3 (07:30→16:30)
[2019-05-15] MEDS: CALCIUM ACETATE 667 MG GELCAP PO SCH ×3 (08:00→17:00)
[2019-05-15] MEDS: COLLAGENASE 5 GM TUBE TOP SCH (09:00)
[2019-05-15] MEDS: NPH, HUMAN INSULIN ISOPHANE 100 UNIT/1 ML 3ML VIAL SQ SCH ×2 (09:00→21:00)
[2019-05-15] MEDS: ATENOLOL 50 MG TAB PO SCH (09:00)
[2019-05-15] MEDS: MONTELUKAST SODIUM 10 MG TAB PO SCH (09:00)
[2019-05-15] MEDS: TAMSULOSIN HCL 0.4 MG CAP PO SCH (09:00)
[2019-05-15] MEDS: ALLOPURINOL 300 MG TAB PO SCH (09:00)
--- NOTE | 2019-05-15 12:46 | NUR ---
TALKED DR HERNANDEZ REGARDING THE DIALYSIS ON TODAY EVENING AND PT CAN GO TO PROCEDURE ON TOMORROW MORNING HE SAID NOT TODAY CALL THE [facility] ON TOMORROW MORNING
--- NOTE | 2019-05-15 12:55 | NUR ---
MIGUELINA CARRILLO AND TALKED BRANDO SHE SAID SHE WILL [facility] THE [facility]YS[facility] ON TOMORROW MORNING
--- NOTE | 2019-05-15 15:51 | NUR ---
Nutrition Intervention Note RD Recommendation(s) for Physician: -Recommend renal/diabetic diet -Recommend Josh BID for wound healing Plan of Care: RD following, monitoring for tolerance and adequacy Nutrition reason for involvement: right heel unstageable wound RD Assessment (05/15/2019) Pt is an 83 year old female admitted with right heel abscess. Pt reports a good appetite and eating >50% of meals. No weight loss reported and pt mentioned he usually weighs in the 180 lb range. No N/V or chewing/swallowing issues. Per wound care note, pt has multiple diabetic ulcers and right heel has necrotic eschar. Principal Problems/Diagnoses: right heel abscess PMH: ESRD, diabetes, peripheral vascular disease, hypothyroid, CVA, CAD, CHF, neuropathy I/O: 240/- GI: soft, round abdomen Skin: multiple diabetic ulcers and right heel has necrotic eschar per wound care note Labs: (05/13) Na 134, BUN 49, Creat 4.13. Glu 382 Meds: Phoslo, insulin, Synthroid, Vancomycin, Warfarin, Ht: 73 inches Wt: 288 BMI: 38.1 kg/m2 IBW: 184 lbs Malnutrition Evaluation (05/15/2019) The patient does not meet criteria for a specified degree of malnutrition at this time. Will re-evaluate at follow-up as appropriate. Nutrition Prescription (Diet Order): Renal diet Estimated Nutritional Needs: 3210-5089 calories/day (22-25 kcal/kg IBW) 100-125 g protein/day (1.2-1.5 g pro/kg IBW) Diet Adequacy: Meeting calorie needs, Meeting protein needs Tolerance: Tolerating PO Diet Education Needs Assessment: Pt was not interested in diet education materials at time of visit Nutrition Care Level: low Nutrition Diagnosis: Increased nutrient needs related to increased demand for protein and kcal as evidenced by multiple wounds. Goal: Patient will meet 75-100% of estimated needs by follow up Progress: N/A Interventions: -carbohydrate and mineral -modified diet, Commercial beverage, Recommended Modifications, Monitoring/Evaluation: -Total energy intake, Total protein intake, Modified diet, Liquid supplement, Weight change Signed: Ivelisse Cooley RD, LD
[2019-05-15] MEDS: WARFARIN SOD 2 MG TAB PO SCH (17:00)
[2019-05-15] MEDS: CEFEPIME 1GM/NS 0.9% 50 ML 50 ML IV SCH (17:50)
--- NOTE | 2019-05-15 18:50 | NUR ---
PT RESTING ON BED BED SIDE REPORT GIVEN TO ONCOMING NURSE
--- NOTE | 2019-05-15 19:05 | NUR ---
Patient visited in room during nursing rounds. at bedside. Dressing on both feet covering wounds (Right heel ulcer, small ulcer on dorsal side of right foot and as well as on 3rd right toe, 1st left toe and 5th left toe) clean and dry. 4th finger dorsal side gangrenous and open to air at this time. MISAEL fistula working and ZA fistula for dialysis not working. Call pena within reach. Bed alarm active. Pt on CPAP at night and non-ambulatory. Call pena within reach. Bed alarm active.
[2019-05-16] VITALS (8 sets, daily range): BP systolic 94–121; BP diastolic 30–61
--- NOTE | 2019-05-16 05:10 | NUR ---
Dr. Pace came and visited pt in room during MD rounds. Dr Pace aware pt scheduled for Deep wound debridement of bilateral feet today.
[2019-05-16] MEDS: PANTOPRAZOLE SOD 40 MG TABEC PO SCH (05:14)
[2019-05-16] MEDS: LEVOTHYROXINE SODIUM 88 MCG TAB PO SCH (05:14)
--- NOTE | 2019-05-16 07:00 | NUR ---
RCD PT AT BED PT IS ALERT AND ORIENTED PT RESTING ON BED IV PATENT BY SALINE FLUSH FAMILY AT BED SIDE PT NPO FOR PROCEDURE BED LOW AND LOCKED CALL LIGHT IN REACH
[2019-05-16] MEDS: INSULIN REGULAR, HUMAN 100 UNIT/1 ML 3ML VIAL SQ SCH ×3 (07:30→16:30)
[2019-05-16] MEDS: CALCIUM ACETATE 667 MG GELCAP PO SCH ×3 (08:00→16:31)
--- NOTE | 2019-05-16 08:00 | NUR ---
TALKED TARIQ AT [facility] REGARDING HD THEY SAID THEY ARE SENDING TO SOMEONE
[2019-05-16] MEDS: NPH, HUMAN INSULIN ISOPHANE 100 UNIT/1 ML 3ML VIAL SQ SCH ×2 (09:00→21:20)
[2019-05-16] MEDS: ALLOPURINOL 300 MG TAB PO SCH (09:00)
[2019-05-16] MEDS: TAMSULOSIN HCL 0.4 MG CAP PO SCH (09:00)
[2019-05-16] MEDS: COLLAGENASE 5 GM TUBE TOP SCH (09:00)
[2019-05-16] MEDS: MONTELUKAST SODIUM 10 MG TAB PO SCH (09:00)
[2019-05-16] MEDS: ATENOLOL 50 MG TAB PO SCH (09:00)
[2019-05-16] MEDS ORDERED: SODIUM CHLORIDE 0.9% 1000ML 2,000 ML ONE (09:08)
[2019-05-16] MEDS ORDERED: HEPARIN SOD (PORCINE) 1000 UNIT/ML SDV IV PRN ×2 (10:15→11:00)
[2019-05-16] MEDS ORDERED: SODIUM CHLORIDE 0.9% 1000ML 2,000 ML IV PRN (10:15)
[2019-05-16] MEDS ORDERED: ALBUMIN 25% 12.5GM 0.25 GM/ML BTL IV PRN ×2 (10:15)
[2019-05-16] MEDS ORDERED: SODIUM CHLORIDE 0.9% 250ML 500 ML IV PRN (10:15)
[2019-05-16 10:33] LABS: BASOPHILS # (AUTO) 0.1 (0.0-0.1); BASOPHILS % 0.5 % (0.0-1.0); EOSINOPHILS # (AUTO) 0.7 (0.0-0.4); EOSINOPHILS % 5.3 % (0.0-6.0); HEMATOCRIT 25.8 % (38.2-49.6); HEMOGLOBIN 7.6 g/dL (14.0-18.0); LYMPHOCYTES # (AUTO) 1.8 (1.0-3.2); LYMPHOCYTES % 14.5 % (18.0-39.1); MEAN CORPUSCULAR HEMOGLOBIN 28.6 pg (28-32); MEAN CORPUSCULAR HGB CONC 29.5 g/dL (31-35); MONOCYTES # (AUTO) 1.5 (0.2-0.8); MONOCYTES % 11.8 % (4.4-11.3); NEUTROPHILS # (AUTO) 8.5 (2.1-6.9); NEUTROPHILS % 67.1 % (38.7-80.0); PLATELET COUNT 190 x10e3/uL (140-360); RED BLOOD COUNT 2.66 x10e6/uL (4.3-5.7); RED CELL DISTRIBUTION WIDTH 16.9 % (11.7-14.4)
--- NOTE | 2019-05-16 11:37 | NUR ---
IMM letter delivered and explained to pt's Nelly at bedside. She verbalized understanding. Signed copy placed in chart. Copy given to .
[2019-05-16] MEDS ORDERED: SODIUM CHLORIDE 0.9% 250ML 250 ML IV ONE (14:00)
[2019-05-16] MEDS ORDERED: SODIUM CHLORIDE 0.9% 250ML 250 ML ONE (14:42)
--- NOTE | 2019-05-16 14:45 | NUR ---
TALKED TO THE OR NURSE DR ROMO CANCELLED THE PROCEDURE ON TODAY AND SHE SAID DR WARE WILL DO THE PROCEDURE ON SUNDAY
--- NOTE | 2019-05-16 14:46 | NUR ---
blood transfusion started after verified with another RN
--- NOTE | 2019-05-16 15:00 | NUR ---
DIALYSIS DONE NO FLUID REMOVED ONE UNIT BLOOD GIVEN
[2019-05-16 16:07] LABS: ALBUMIN 3.2 g/dL (3.5-5.0); ALBUMIN/GLOBULIN RATIO 0.9 (0.8-2.0); ANION GAP 14.7 mmol/L (8-16); CALCIUM 8.7 mg/dL (8.4-10.2); CREATININE, SERUM 3.01 mg/dL (0.72-1.25); POTASSIUM 3.7 mmol/L (3.5-5.1)
[2019-05-16] MEDS: CEFEPIME 1GM/NS 0.9% 50 ML 50 ML IV SCH (16:31)
[2019-05-16] MEDS: WARFARIN SOD 2 MG TAB PO SCH (17:00)
[2019-05-16 17:44] LABS: BASOPHILS # (AUTO) 0.1 (0.0-0.1); BASOPHILS % 0.6 % (0.0-1.0); EOSINOPHILS # (AUTO) 0.5 (0.0-0.4); EOSINOPHILS % 6.2 % (0.0-6.0); HEMATOCRIT 31.1 % (38.2-49.6); HEMOGLOBIN 9.3 g/dL (14.0-18.0); LYMPHOCYTES % 11.8 % (18.0-39.1); MEAN CORPUSCULAR HEMOGLOBIN 28.5 pg (28-32); MEAN CORPUSCULAR HGB CONC 29.9 g/dL (31-35); MEAN CORPUSCULAR VOLUME 95.4 fL (81-99); MONOCYTES # (AUTO) 0.8 (0.2-0.8); MONOCYTES % 9.2 % (4.4-11.3); NEUTROPHILS # (AUTO) 5.8 (2.1-6.9); NEUTROPHILS % 71.3 % (38.7-80.0); PLATELET COUNT 145 x10e3/uL (140-360); RED BLOOD COUNT 3.26 x10e6/uL (4.3-5.7); RED CELL DISTRIBUTION WIDTH 16.9 % (11.7-14.4)
[2019-05-16 17:54] LABS: INR 1.37; PROTHROMBIN TIME 17.8 seconds (11.9-14.5)
[2019-05-16] MEDS: VANCOMYCIN 1GM/NS 250 ML 250 ML IV SCH (18:09)
--- NOTE | 2019-05-16 18:52 | NUR ---
PT RESTING ON BED BED SIDE REPORT GIVEN TO ONCOMING NURSE
--- NOTE | 2019-05-16 22:40 | Operative Report ---
DATE OF PROCEDURE: 06/14/2019 SURGEON: Aron oMffett DPM Mr. Morgan is evaluated bedside today. He is still on dialysis late this afternoon at 3:43 pm while on rounds. He apparently had a low hemoglobin and decision was made to transfuse. The patient is currently receiving blood and remains n.p.o. I have released and canceled his n.p.o. order as it is too late in the day to proceed with surgery given the circumstances. The recommendation would be for continued Sunday, Sunday, and Sunday. Transfusions. He will continue on local wound care and IV antibiotics through the weekend while patient blood levels stabilized. We will re-evaluate on Sunday after dialysis for possible surgical debridement on Sunday. I will personally be out of town, but Dr. Senia Tobias will assume care of the patient and debride on Sunday if medical stabilization and clearance have been achieved. Once again Dr. Moffett patient's n.p.o. order is released and Dr. Jaimes will follow next week. Thank very much, Dr. Wagoner, Dr. Pace, and Dr. Lubin for your considerations and excellent patient management is going to continue. JANELLE Dye/ALLEN /[id number]
--- NOTE | 2019-05-16 23:15 | NUR ---
paged DR Wagoner to verify blood order. Awaiting MD to call back
--- NOTE | 2019-05-16 23:50 | NUR ---
paged DR Wagoner again to verify blood order. Awaiting MD to call back
[2019-05-17] VITALS (8 sets, daily range): BP systolic 100–142; BP diastolic 46–71
--- NOTE | 2019-05-17 01:29 | NUR ---
spoke to DR Wagoner about the blood transfusion. New order to hold the 2nd unit
[2019-05-17] MEDS: LEVOTHYROXINE SODIUM 88 MCG TAB PO SCH (06:28)
[2019-05-17] MEDS: ATENOLOL 50 MG TAB PO SCH (09:00)
[2019-05-17] MEDS: PANTOPRAZOLE SOD 40 MG TABEC PO SCH (09:10)
[2019-05-17] MEDS: TAMSULOSIN HCL 0.4 MG CAP PO SCH (09:10)
[2019-05-17] MEDS: CALCIUM ACETATE 667 MG GELCAP PO SCH ×3 (09:10→16:56)
[2019-05-17] MEDS: MONTELUKAST SODIUM 10 MG TAB PO SCH (09:11)
[2019-05-17] MEDS: ALLOPURINOL 300 MG TAB PO SCH (09:11)
[2019-05-17] MEDS: COLLAGENASE 5 GM TUBE TOP SCH (09:30)
[2019-05-17] MEDS: NPH, HUMAN INSULIN ISOPHANE 100 UNIT/1 ML 3ML VIAL SQ SCH ×2 (10:42→21:00)
[2019-05-17] MEDS: INSULIN REGULAR, HUMAN 100 UNIT/1 ML 3ML VIAL SQ SCH ×3 (10:43→16:30)
[2019-05-17] MEDS ORDERED: HYDROCORTISONE 1% CREAM 30 GM TUBE TOP PRN (13:00)
[2019-05-17] MEDS: WARFARIN SOD 2 MG TAB PO SCH (16:56)
[2019-05-17] MEDS: CEFEPIME 1GM/NS 0.9% 50 ML 50 ML IV SCH (16:57)
--- NOTE | 2019-05-17 21:00 | Progress Note ---
DATE: 05/17/2019 Mr. Morgan continued to do fairly stable, weak in general. He still needs maximum assistance and he is a big jayne, a morbidly obese patient. His right middle finger is also stable. His heel also seems to be doing okay. REVIEW OF SYSTEMS: Otherwise unremarkable. PHYSICAL EXAMINATION: GENERAL: He is currently alert, oriented, does not seem to be in acute distress, morbidly obese patient. HEENT: He is not icteric. NECK: Supple. CHEST: Clear. HEART: S1, S2. No S3, S4, or murmur. ABDOMEN: Soft and obese. IMPRESSION: 1. Right heel osteomyelitis infection. 2. Ischemic tip of the right middle finger. 3. Diabetes mellitus with neuropathy. 4. Morbidly obese patient. 5. Sleep apnea. 6. End-stage renal disease, on hemodialysis. Continue vancomycin and continue cefepime. Debridement. He would benefit from rehab and discharge planning. Eventually, he may need skilled. MD JAYESH Wagner/MODL /[id number]
[2019-05-18] VITALS (7 sets, daily range): BP systolic 86–158; BP diastolic 47–60
--- NOTE | 2019-05-18 06:31 | Progress Note ---
DATE: 05/18/2019 SUBJECTIVE: The patient did well overnight. No new complaints. He slept well. OBJECTIVE: VITAL SIGNS: Stable. He is afebrile. GENERAL: No apparent distress. Wearing his BiPAP. CARDIOVASCULAR: Regular rate and rhythm. LUNGS: Decreased breath sounds. ABDOMEN: Good bowel sounds. Soft, nontender. EXTREMITIES: No clubbing or cyanosis. Right 4th finger still shows dry gangrenous changes and right foot is wrapped. NEUROLOGIC: Nonfocal. ASSESSMENT AND PLAN: 1. Cellulitis of right lower extremity. Continue with IV antibiotics per Dr. Lubin. The patient exclusively will go to the OR on Sunday. 2. Diabetes. Continue with current care and monitoring. 3. End-stage renal disease. Continue with current care per Renal. 4. Hypertension. Continue with current care and monitoring. 5. Obstructive sleep apnea. Continue with his BiPAP at night. 6. Right index finger gangrene. I had a discussion the other day with Dr. Lubin and current goal right now is just monitor the finger since it is dry and gangrenous passed the middle joint of the finger involving small distal artery of the finger, which is unfortunately not able to be vascularized and and the patient fully aware of that the finger will be amputated at some point. We will continue to monitor at this time and continue with wound care. Please see hospital chart for full details. MD ROXY Guerrero/ALLEN /[id number]
[2019-05-18] MEDS: LEVOTHYROXINE SODIUM 88 MCG TAB PO SCH (06:34)
[2019-05-18] MEDS: NPH, HUMAN INSULIN ISOPHANE 100 UNIT/1 ML 3ML VIAL SQ SCH ×2 (09:00→21:15)
[2019-05-18] MEDS: PANTOPRAZOLE SOD 40 MG TABEC PO SCH (09:12)
[2019-05-18] MEDS: CALCIUM ACETATE 667 MG GELCAP PO SCH ×3 (09:12→17:09)
[2019-05-18] MEDS: ALLOPURINOL 300 MG TAB PO SCH (09:12)
[2019-05-18] MEDS: MONTELUKAST SODIUM 10 MG TAB PO SCH (09:12)
[2019-05-18] MEDS: TAMSULOSIN HCL 0.4 MG CAP PO SCH (09:12)
[2019-05-18] MEDS: ATENOLOL 50 MG TAB PO SCH (09:20)
[2019-05-18] MEDS: COLLAGENASE 5 GM TUBE TOP SCH (09:20)
[2019-05-18] MEDS: INSULIN REGULAR, HUMAN 100 UNIT/1 ML 3ML VIAL SQ SCH ×3 (09:21→16:30)
[2019-05-18] MEDS: WARFARIN SOD 2 MG TAB PO SCH (17:09)
[2019-05-18] MEDS: CEFEPIME 1GM/NS 0.9% 50 ML 50 ML IV SCH (17:09)
--- NOTE | 2019-05-18 19:19 | NUR ---
report to on coming nurse walking rounds complete.
[2019-05-19] VITALS (9 sets, daily range): BP systolic 112–129; BP diastolic 37–61
[2019-05-19] MEDS: LEVOTHYROXINE SODIUM 88 MCG TAB PO SCH (05:50)
--- NOTE | 2019-05-19 07:00 | NUR ---
BEDSIDE SHIFT REPORT RECEIVED FROM THE HAND MICA PLATE LAYER RN. EDUCATED PT ABOUT FALL PRECAUTIONS. CALL LIGHT WITH IN EASY REACH. INSTRUCTED PT TO USE CALL LIGHT FOR ALL THE NEEDS. PT VERBALIZED UNDERSTANDING. FAMILY MEMBER AT BEDSIDE. BED IS LOW AND LOCKED. SIDE RAILS X2. BED ALARM IS ON. PT DENIES NEEDS AT THIS TIME.
[2019-05-19] MEDS: INSULIN REGULAR, HUMAN 100 UNIT/1 ML 3ML VIAL SQ SCH ×3 (08:00→17:30)
[2019-05-19] MEDS: PANTOPRAZOLE SOD 40 MG TABEC PO SCH (08:30)
[2019-05-19] MEDS: CALCIUM ACETATE 667 MG GELCAP PO SCH ×3 (08:48→17:47)
[2019-05-19] MEDS: TAMSULOSIN HCL 0.4 MG CAP PO SCH (08:49)
[2019-05-19] MEDS: MONTELUKAST SODIUM 10 MG TAB PO SCH (08:49)
[2019-05-19] MEDS: ALLOPURINOL 300 MG TAB PO SCH (08:49)
[2019-05-19] MEDS: ATENOLOL 50 MG TAB PO SCH (08:54)
[2019-05-19 08:58] LABS: BASOPHILS # (AUTO) 0.1 (0.0-0.1); BASOPHILS % 0.5 % (0.0-1.0); EOSINOPHILS # (AUTO) 0.6 (0.0-0.4); HEMATOCRIT 29.2 % (38.2-49.6); LYMPHOCYTES # (AUTO) 1.3 (1.0-3.2); LYMPHOCYTES % 12.8 % (18.0-39.1); MEAN CORPUSCULAR HEMOGLOBIN 29.1 pg (28-32); MEAN CORPUSCULAR HGB CONC 30.8 g/dL (31-35); MEAN CORPUSCULAR VOLUME 94.5 fL (81-99); MONOCYTES # (AUTO) 1.1 (0.2-0.8); MONOCYTES % 10.7 % (4.4-11.3); NEUTROPHILS # (AUTO) 7.1 (2.1-6.9); NEUTROPHILS % 69.4 % (38.7-80.0); PLATELET COUNT 140 x10e3/uL (140-360); RED BLOOD COUNT 3.09 x10e6/uL (4.3-5.7); RED CELL DISTRIBUTION WIDTH 16.5 % (11.7-14.4)
[2019-05-19 09:45] LABS: ANION GAP 18.9 mmol/L (8-16); CALCIUM 8.5 mg/dL (8.4-10.2); CREATININE, SERUM 8.39 mg/dL (0.72-1.25); POTASSIUM 4.9 mmol/L (3.5-5.1)
[2019-05-19] MEDS ORDERED: HEPARIN SOD (PORCINE) 1000 UNIT/ML SDV IV PRN (09:45)
[2019-05-19] MEDS ORDERED: MANNITOL 25% 12.5GM/50 ML VIAL IV PRN (09:45)
[2019-05-19] MEDS ORDERED: SODIUM CHLORIDE 0.9% 1000ML 2,000 ML IV PRN (09:45)
[2019-05-19] MEDS ORDERED: ALBUMIN 25% 12.5GM 0.25 GM/ML BTL IV PRN (09:45)
[2019-05-19] MEDS ORDERED: SODIUM CHLORIDE 0.9% 250ML 500 ML IV PRN (09:45)
[2019-05-19] MEDS: NPH, HUMAN INSULIN ISOPHANE 100 UNIT/1 ML 3ML VIAL SQ SCH (10:00)
[2019-05-19] MEDS: COLLAGENASE 5 GM TUBE TOP SCH (10:00)
--- NOTE | 2019-05-19 10:30 | NUR ---
POWER EQUIPMENT TECHNOLOGY INSTRUCTOR AT BEDSIDE.
--- NOTE | 2019-05-19 11:00 | NUR ---
ALBUMIN 25 GM GIVEN TO FINANCIAL ANALYST PER THE REQUEST.
--- NOTE | 2019-05-19 12:30 | NUR ---
INSULIN NOT GIVEN FOR 03.01 . PT IS ON DIALYSIS. NOT EATING. DR. ALSTON AWARE.
--- NOTE | 2019-05-19 14:00 | NUR ---
PAGED DR. ROLLE REGARDING PROCEDURE TOMORROW. NPO AFTER MIDNIGHT COMPLETE INFORMED CONSENT UNDER DR. WARE PER DR ROLLE.
--- NOTE | 2019-05-19 14:31 | NUR ---
HEPARIN 5000 UNIT GIVEN TO THE SHAKE PACKER.
--- NOTE | 2019-05-19 15:00 | NUR ---
DIALYSIS COMPLETED. 2 L REMOVED PER THE RACECOURSE BARRIER ATTENDANT.
[2019-05-19 15:17] LABS: INR 1.49
[2019-05-19] MEDS: WARFARIN SOD 2 MG TAB PO SCH ×2 (17:00→17:47)
--- NOTE | 2019-05-19 17:00 | NUR ---
PT RIGHT HAND 4TH DIGIT BLACK COLOR, C/O NO CIRCULATION AT BEDSIDE. INFORMED THE SAME TO DR. ALSTON.
--- NOTE | 2019-05-19 17:45 | NUR ---
PAGED DR. WARE REGARDING COUMADIN. PT HAS PROCEDURE TOMORROW. HOLD COUMADIN PER THE
[2019-05-19] MEDS: CEFEPIME 1GM/NS 0.9% 50 ML 50 ML IV SCH (17:47)
--- NOTE | 2019-05-19 18:23 | Progress Note ---
DATE: 05/19/2019 Covering for Aron Moffett DPM SUBJECTIVE: The patient was seen at bedside today. Bilateral lower extremities dressing was taken down on the left. He has dry gangrene to the 5th MPJ, the 5th distal tuft, and 5th base. No erythema. No edema. No signs of infection. On the right, he has a full-thickness ulcer with gangrenous changes to the center. The whole center of the ulcer is gangrenous. The periphery is granular. No streaking erythema. No ascending lymphangitis. The digits also have dry gangrene. On the heel, there is some areas that contains seropurulent drainage. No palpable abscess. ASSESSMENT: 1. Diabetic foot wound, grade 3, right heel. 2. Diabetic foot wound, dry gangrene grade 4 digits, bilateral lower extremities, multiple. PLAN: Discussed treatment with the patient. At this point, he is going to need an OR debridement to the wounds. Plan is to do excisional debridement down to clean viable tissue. On the heel he is probably going to need a wound VAC. I suspect he is going to continue on IV antibiotic. I will take deep cultures and sensitivities and bone biopsy of the area. He is scheduled for the OR tomorrow. He will be n.p.o. after midnight and he will call the office if any questions, concerns, or new problems. I will continue to follow. Senia Tobias DPM ER/MODL /[id number] JAYLAN
--- NOTE | 2019-05-19 18:33 | Progress Note ---
DATE: 05/19/2019 SUBJECTIVE: Mr. Morgan is doing well. No new complaints. He would like to go home, but he still remains weak. I discussed with him and his family. REVIEW OF SYSTEMS: At the present time: HEENT: Negative. PULMONARY: Negative. CARDIAC: Negative. EXTREMITIES: Finger seems to be better. He is going to have debridement on his heel tomorrow. PHYSICAL EXAMINATION: GENERAL: Currently alert, oriented, does not seem to be in acute distress. VITAL SIGNS: Stable, currently afebrile. HEENT: He is not icteric. NECK: Supple. CHEST: Clear. HEART: S1, S2. No S3, S4, or murmur. ABDOMEN: Soft. Bowel sounds present. No tenderness. EXTREMITIES: The finger seems to be getting better on the right. The heel is also stable. IMPRESSION: 1. Abscess of the hand, concerned about osteomyelitis. 2. End-stage renal disease, on hemodialysis. 3. Morbidly obese patient. 4. Severe peripheral vascular disease. 5. 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 6. Currently on vancomycin and cefepime. Surgical debridement tomorrow. We will get cultures. [facility]charge [facility] in the next few days. It could be very difficult with this patient because Podiatry recommended he stay of his foot, but he is extremely debilitated. We will follow. MD JAYESH Wagner/ALLEN /[id number]
[2019-05-19] MEDS: VANCOMYCIN 1GM/NS 250 ML 250 ML IV SCH (18:46)
--- NOTE | 2019-05-19 19:00 | NUR ---
BEDSIDE SHIFT REPORT GIVEN TO THE FILENET ADMIN RN. PT DENIED FURTHER NEEDS.
[2019-05-19] MEDS: HYDROCODONE/APAP 10MG-325MG TAB PO PRN (19:17)
[2019-05-20] VITALS (8 sets, daily range): BP systolic 115–149; BP diastolic 51–77
[2019-05-20] MEDS: NPH, HUMAN INSULIN ISOPHANE 100 UNIT/1 ML 3ML VIAL SQ SCH ×3 (00:09→21:00)
[2019-05-20] MEDS: LEVOTHYROXINE SODIUM 88 MCG TAB PO SCH (06:00)
--- NOTE | 2019-05-20 06:15 | Progress Note ---
DATE: 05/20/2019 SUBJECTIVE: The patient did well overnight. No new issues. OBJECTIVE: VITAL SIGNS: Temperature 97.1, pulse 68, blood pressure 129/61, and sats 98% on room air. GENERAL: No apparent distress. CARDIOVASCULAR: Regular rate and rhythm. LUNGS: Clear to auscultation bilaterally. ABDOMEN: Good bowel sounds. Soft, nontender. EXTREMITIES: No clubbing, cyanosis. Right 4th finger still shows dry gangrenous changes of the distal 1/3rd of his finger. Right heel is bandaged. NEUROLOGIC: Nonfocal. ASSESSMENT AND PLAN: 1. Right lower extremity cellulitis, possible osteomyelitis. The patient is scheduled to go to the OR today. Continue with IV antibiotics. 2. Right finger gangrene. We will continue with current supportive care since it is dry gangrenous. The patient and family are fully aware that the finger is gangrenous and will likely auto amputate. We will continue to do wound care and watch for signs of any type of infection. 3. Hypothyroidism. Continue with his medications. 4. Diabetes. Continue with current care and monitoring. 5. End-stage renal disease. Continue with dialysis per Renal. 6. Anemia. Continue to monitor. This is stable. 7. Morbid obesity with a BMI of greater than 35 and associated conditions of sleep apnea and diabetes. Continue with diet. 8. Sleep apnea. Continue with his BiPAP. Please see hospital chart for full details. MD ROXY Guerrero/MODL /[id number]
--- NOTE | 2019-05-20 07:00 | NUR ---
BEDSIDE SHIFT REPORT RECEIVED FROM THE STORAGE BATTERY INSPECTOR RN. EDUCATED PT ABOUT FALL PRECAUTIONS. CALL LIGHT WITH IN EASY REACH. INSTRUCTED PT TO USE CALL LIGHT FOR ALL THE NEEDS. PT VERBALIZED UNDERSTANDING. FAMILY MEMBER AT BEDSIDE. BED IS LOW AND LOCKED. SIDE RAILS X2. BED ALARM IS ON. PT DENIES NEEDS AT THIS TIME.
[2019-05-20] MEDS: INSULIN REGULAR, HUMAN 100 UNIT/1 ML 3ML VIAL SQ SCH ×3 (07:30→17:10)
[2019-05-20] MEDS: PANTOPRAZOLE SOD 40 MG TABEC PO SCH (07:30)
[2019-05-20] MEDS: CALCIUM ACETATE 667 MG GELCAP PO SCH ×3 (08:00→17:10)
[2019-05-20] MEDS: COLLAGENASE 5 GM TUBE TOP SCH (09:00)
--- NOTE | 2019-05-20 12:00 | NUR ---
PT OFF UNIT FOR PROCEDURE IN SAFE CONDITION.
[2019-05-20] MEDS ORDERED: SODIUM CHLORIDE 0.9% 500ML 500 ML ONE (12:19)
[2019-05-20 12:20] LABS: ANION GAP 13.7 mmol/L (8-16); CALCIUM 8.9 mg/dL (8.4-10.2); CREATININE, SERUM 6.17 mg/dL (0.72-1.25); POTASSIUM 4.7 mmol/L (3.5-5.1)
[2019-05-20] MEDS ORDERED: BUPIVACAINE HCL 0.5% INJ 30 ML VIAL INJ ONE (12:25)
[2019-05-20] MEDS ORDERED: MUPIROCIN 2% OINT 22 GM TUBE ONE (12:25)
[2019-05-20] MEDS ORDERED: BACITRACIN 50,000 UNIT VIAL ONE (12:50)
--- NOTE | 2019-05-20 14:03 | Operative Report ---
DATE OF PROCEDURE: 05/20/2019 SURGEON: Senia Tobias DPM PREOPERATIVE DIAGNOSIS: Bilateral grade 3 wounds, bilateral lower extremities. Largest wound being at the heel, measures about 5 cm x 7 cm x 0.5 cm. POSTOPERATIVE DIAGNOSIS: Bilateral grade 3 wounds, bilateral lower extremities. Largest wound being at the heel, measures about 5 cm x 7 cm x 0.5 cm. PROCEDURE: Excisional debridement to the level of the bone with a 15 blade and a bone rongeur. ANESTHESIA: MAC anesthetic. HEMOSTASIS: None. ESTIMATED BLOOD LOSS: Less than 10 mL. MATERIALS: Bone cultures and sensitivities. COMPLICATIONS: None. CONDITION: Stable. PROCEDURE IN DETAIL: Under mild sedation, the patient was brought to the operating room, placed on the operating table in supine position. Following IV sedation, the foot was scrubbed, prepped, and draped in the usual aseptic manner. The foot was lowered to the table. Attention was directed to the lateral aspect of the left foot, where 2 foot ulcers were present at the 5th digit and 5th MPJ. Utilizing a combination of bone rongeur and a 15 blade, the area was cleaned down to clean viable bleeding tissue. This encompassed some bone. Attention was then directed to the right foot, where utilizing the same bone rongeur and 15 blade, all nonviable tissue. Excisional debridement was performed to clean viable bleeding bone. Deep cultures and sensitivity were performed after pulse irrigation of the area. Hemostasis was then acquired. Surgicel was used for the heel to achieve hemostasis. Clean dressing was applied consisting of Adaptic, Coban, 4x4s, Kerlix, and an Kelby bandage. The patient tolerated the procedure and anesthesia well. He returned to recovery room with vital signs stable and vascular status unchanged. He will be admitted back into the hospital. The plan is to leave the dressing intact today to begin Mesalt tomorrow. He is pending transfer into residential. He is to be nonweightbearing to that right foot and we will continue to follow. He is currently on IV antibiotics by Infectious Disease. Senia Tobias DPM ER/MODL /[id number]
--- NOTE | 2019-05-20 14:15 | NUR ---
PT BACK TO UNIT AFTER PROCEDURE. AT BEDSIDE. DENIES NEEDS AT THIS TIME.
[2019-05-20] MEDS: ATENOLOL 50 MG TAB PO SCH (15:04)
[2019-05-20] MEDS: MONTELUKAST SODIUM 10 MG TAB PO SCH (15:04)
[2019-05-20] MEDS: ALLOPURINOL 300 MG TAB PO SCH (15:04)
[2019-05-20] MEDS: TAMSULOSIN HCL 0.4 MG CAP PO SCH (15:04)
[2019-05-20] MEDS: CEFEPIME 1GM/NS 0.9% 50 ML 50 ML IV SCH (17:10)
[2019-05-20 17:30] LABS: INR 1.5; PROTHROMBIN TIME 19.1 seconds (11.9-14.5)
[2019-05-20] MEDS: WARFARIN SOD 2 MG TAB PO SCH (17:39)
--- NOTE | 2019-05-20 19:00 | NUR ---
BEDSIDE SHIFT REPORT GIVEN TO THE REMODELER RN. PT DENIED FURTHER NEEDS.
[2019-05-20] MEDS: HYDROCODONE/APAP 10MG-325MG TAB PO PRN (21:27)
[2019-05-21] VITALS (8 sets, daily range): BP systolic 105–134; BP diastolic 49–64
[2019-05-21] MEDS: LEVOTHYROXINE SODIUM 88 MCG TAB PO SCH (06:00)
[2019-05-21] MEDS: ATENOLOL 50 MG TAB PO SCH (08:33)
[2019-05-21] MEDS: PANTOPRAZOLE SOD 40 MG TABEC PO SCH (08:38)
[2019-05-21] MEDS: CALCIUM ACETATE 667 MG GELCAP PO SCH ×3 (08:38→17:41)
[2019-05-21] MEDS: TAMSULOSIN HCL 0.4 MG CAP PO SCH (08:38)
[2019-05-21] MEDS: MONTELUKAST SODIUM 10 MG TAB PO SCH (08:39)
[2019-05-21] MEDS: ALLOPURINOL 300 MG TAB PO SCH (08:39)
[2019-05-21] MEDS: INSULIN REGULAR, HUMAN 100 UNIT/1 ML 3ML VIAL SQ SCH ×3 (09:00→16:30)
[2019-05-21] MEDS: NPH, HUMAN INSULIN ISOPHANE 100 UNIT/1 ML 3ML VIAL SQ SCH ×2 (09:00→21:15)
[2019-05-21] MEDS: VANCOMYCIN 1GM/NS 250 ML 250 ML IV SCH (15:00)
--- NOTE | 2019-05-21 15:47 | NUR ---
SIGNED CHOICE FOR [facility], FAXED CLINICALS TO FACILITY AND NOTIFIED REP ON WAY, LET KNOW DC TOMORROW OR NEXT DAY, COMPLETED PASRR AND RTF AND PUT WITH PACKET AT NURSES STATION.
--- NOTE | 2019-05-21 15:57 | NUR ---
Nutrition Intervention Note RD Recommendation(s) for Physician: -Continue 1800 ADA, Renal diet -Recommend Josh BID for wound healing -Recommend Vitamin C 500 mg BID and Zinc Sulfate 220 mg x 10 days to promote wound healing Plan of Care: RD following, monitoring for tolerance and adequacy Nutrition reason for involvement: follow up RD Assessment 05/21: Follow up. Pt sleeping on BiPAP and receiving HD at time of attempted visits. Pt eating well per RN, noted 75% meal intake per chart, and no GI distress reported. Pt s/p debridement of heel yesterday. Pt discussed during am rounds. Chart reviewed. Will continue to monitor. (05/15/2019) Pt is an 83 year old female admitted with right heel abscess. Pt reports a good appetite and eating >50% of meals. No weight loss reported and pt mentioned he usually weighs in the 180 lb range. No N/V or chewing/swallowing issues. Per wound care note, pt has multiple diabetic ulcers and right heel has necrotic eschar. Principal Problems/Diagnoses: right heel abscess PMH: ESRD, diabetes, peripheral vascular disease, hypothyroid, CVA, CAD, CHF, neuropathy GI: LBM 05/21. soft, round abdomen Skin: multiple diabetic ulcers and right heel has necrotic eschar per wound care note Labs: 05/20: BUN 34, Cr 6.17, Gluc 152, POC Gluc 153-201 Meds: Phoslo, insulin, Synthroid, abx, protonix, allopurinol Ht: 73 inches Wt: 288 BMI: 38.1 kg/m2 IBW: 184 lbs Malnutrition Evaluation (05/15/2019) The patient does not meet criteria for a specified degree of malnutrition at this time. Will re-evaluate at follow-up as appropriate. Nutrition Prescription (Diet Order): Renal diet Estimated Nutritional Needs: 3405-1092 calories/day (22-25 kcal/kg IBW) 100-125 g protein/day (1.2-1.5 g pro/kg IBW) Diet Adequacy: Meeting calorie needs, Meeting protein needs Tolerance: Tolerating PO Diet Education Needs Assessment: Pt was not interested in diet education materials at time of visit Nutrition Care Level: low Nutrition Diagnosis: Increased nutrient needs related to increased demand for protein and kcal as evidenced by multiple wounds. Goal: Patient will meet 75-100% of estimated needs by follow up Progress: progressing Interventions: -carbohydrate and mineral -modified diet, Commercial beverage, Recommended Modifications, MVI/mineral therapy Monitoring/Evaluation: -Total energy intake, Total protein intake, Modified diet, Liquid supplement, Weight change Signed: Inez Aviles RD, LD, [facility]
[2019-05-21] MEDS: COLLAGENASE 5 GM TUBE TOP SCH (16:30)
[2019-05-21] MEDS: CEFEPIME 1GM/NS 0.9% 50 ML 50 ML IV SCH (18:54)
[2019-05-22] VITALS (8 sets, daily range): BP systolic 88–129; BP diastolic 43–61
[2019-05-22] MEDS: LEVOTHYROXINE SODIUM 88 MCG TAB PO SCH (05:43)
--- NOTE | 2019-05-22 07:58 | NUR ---
bedside report done. pt is sleeping, no s/s of distress. cpap mask in place. call light within reach. is at the bedside and instructed to call RN for help
[2019-05-22] MEDS: CALCIUM ACETATE 667 MG GELCAP PO SCH ×3 (08:33→17:58)
[2019-05-22] MEDS: MONTELUKAST SODIUM 10 MG TAB PO SCH (08:33)
[2019-05-22] MEDS: PANTOPRAZOLE SOD 40 MG TABEC PO SCH (08:33)
[2019-05-22] MEDS: TAMSULOSIN HCL 0.4 MG CAP PO SCH (08:33)
[2019-05-22] MEDS: ATENOLOL 50 MG TAB PO SCH (08:34)
[2019-05-22] MEDS: ALLOPURINOL 300 MG TAB PO SCH (08:34)
[2019-05-22] MEDS: NPH, HUMAN INSULIN ISOPHANE 100 UNIT/1 ML 3ML VIAL SQ SCH ×2 (09:00→21:00)
[2019-05-22] MEDS: INSULIN REGULAR, HUMAN 100 UNIT/1 ML 3ML VIAL SQ SCH ×3 (11:22→16:16)
--- NOTE | 2019-05-22 14:25 | NUR ---
CARE HOME FACILITY DISCHARGE INFORMATION PATIENT HAS BEEN ACCEPTED TO: NAME:[facility] ADDRESS: [id number] [address], [place] [address] ACCEPTING REPAIR OPERATOR; JORDAN ALEGRE ACCEPTING MD:MARLINE ROOM:[id number] NURSE CALL REPORT TO: [phone] IMM SIGNED AND OBTAINED (if applicable): IMM THE FOLLOWING DOCUMENTS MUST ACCOMPANY PATIENT FOR TRANSFER: COPIED CHART: PACKET
[2019-05-22] MEDS: COLLAGENASE 5 GM TUBE TOP SCH (14:30)
[2019-05-22] MEDS: MIDODRINE HCL 5 MG TABLET PO SCH (16:22)
[2019-05-22] MEDS ORDERED: MIDODRINE 2.5 MG TAB PO SCH (17:00)
[2019-05-22] MEDS: CEFEPIME 1GM/NS 0.9% 50 ML 50 ML IV SCH (17:58)
[2019-05-23 01:19] VITALS: BP 133/61
[2019-05-23 05:02] VITALS: BP 126/60
[2019-05-23] MEDS: LEVOTHYROXINE SODIUM 88 MCG TAB PO SCH (05:23)
--- NOTE | 2019-05-23 07:00 | NUR ---
RCD PT AT BED PT IS ALERT AND ORIENTED PT RESTING ON BED NO SIGNS OF ANY DISTRESS NOTED IV PATENT BY SALINE FLUSH BED LOW AND LOCKED CALL LIGHT IN REACH
[2019-05-23] MEDS: PANTOPRAZOLE SOD 40 MG TABEC PO SCH (07:30)
[2019-05-23] MEDS: INSULIN REGULAR, HUMAN 100 UNIT/1 ML 3ML VIAL SQ SCH ×3 (07:30→16:30)
[2019-05-23] MEDS: CALCIUM ACETATE 667 MG GELCAP PO SCH ×3 (08:00→17:00)
[2019-05-23 08:19] VITALS: BP 155/56
[2019-05-23 08:40] VITALS: BP 155/56
[2019-05-23] MEDS: NPH, HUMAN INSULIN ISOPHANE 100 UNIT/1 ML 3ML VIAL SQ SCH (09:00)
[2019-05-23] MEDS: COLLAGENASE 5 GM TUBE TOP SCH (09:00)
[2019-05-23] MEDS: ALLOPURINOL 300 MG TAB PO SCH (09:00)
[2019-05-23] MEDS: MIDODRINE HCL 5 MG TABLET PO SCH ×2 (09:00→17:00)
[2019-05-23] MEDS: MONTELUKAST SODIUM 10 MG TAB PO SCH (09:00)
[2019-05-23] MEDS ORDERED: HEPARIN SOD (PORCINE) 1000 UNIT/ML SDV IV PRN (10:15)
[2019-05-23 10:36] LABS: BASOPHILS # (AUTO) 0.1 (0.0-0.1); BASOPHILS % 0.8 % (0.0-1.0); EOSINOPHILS # (AUTO) 0.4 (0.0-0.4); EOSINOPHILS % 4.8 % (0.0-6.0); HEMATOCRIT 29.2 % (38.2-49.6); HEMOGLOBIN 8.8 g/dL (14.0-18.0); LYMPHOCYTES % 12.3 % (18.0-39.1); MEAN CORPUSCULAR HEMOGLOBIN 28.3 pg (28-32); MEAN CORPUSCULAR HGB CONC 30.1 g/dL (31-35); MEAN CORPUSCULAR VOLUME 93.9 fL (81-99); MONOCYTES # (AUTO) 0.9 (0.2-0.8); MONOCYTES % 10.6 % (4.4-11.3); NEUTROPHILS # (AUTO) 5.7 (2.1-6.9); PLATELET COUNT 134 x10e3/uL (140-360); RED BLOOD COUNT 3.11 x10e6/uL (4.3-5.7); RED CELL DISTRIBUTION WIDTH 15.9 % (11.7-14.4)
[2019-05-23 10:53] LABS: ANION GAP 13.6 mmol/L (8-16); CREATININE, SERUM 7.22 mg/dL (0.72-1.25); POTASSIUM 4.6 mmol/L (3.5-5.1)
[2019-05-23 11:42] VITALS: BP 133/34
[2019-05-23] MEDS: GABAPENTIN 300 MG CAP PO PRN ×2 (13:20→19:30)
[2019-05-23] MEDS: VANCOMYCIN 1GM/NS 250 ML 250 ML IV SCH (15:54)
[2019-05-23] MEDS ORDERED: MEROPENEM 500MG/ NS 50ML 50 ML IV SCH (16:00)
--- NOTE | 2019-05-23 16:00 | NUR ---
PAGED DR FERGUSON AND NOTIFIED THE WOUND CS REPORT BACK DR ZHENG CHANGED THE ANTIBIOTICS HE SAID OK TO DISCHARGE THE PATIENT
--- NOTE | 2019-05-23 16:00 | NUR ---
DIALYSIS DONE AND REMOVED 2.5 LTRS
[2019-05-23 16:19] VITALS: BP 125/58
--- NOTE | 2019-05-23 16:59 | NUR ---
REPORT GIVEN TO LICO HARVEY AND NOTIFIED UNIT SECRETORY TO CALL AMBULANCE
--- NOTE | 2019-05-23 19:01 | NUR ---
PT RESTING ON BED BED SIDE REPORT GIVEN TO ONCOMING NURSE
--- NOTE | 2019-05-23 20:45 | NUR ---
Patient left unit via stretcher. Pt being transferred to [facility] accompanied by EMT. with patient. Information provided to EMT and discharge papers were signed and brought along by EMT. Pt left unit in stable condition and will be transported via ambulance.
--- NOTE | 2019-06-07 13:37 | Discharge Summary ---
DISCHARGE DIAGNOSIS: Right lower extremity cellulitis. HISTORY OF PRESENT ILLNESS AND HOSPITAL COURSE: See hospital chart for full details. The patient is an 83-year-old gentleman with significant comorbidities, who presented with outpatient failure to treat a right lower extremity cellulitis, so he was brought in, placed on IV antibiotics and was seen by surgery, who did a debridement of his grade 4 ulcer of the right lower extremity. He was seen by Renal for his end-stage renal disease to maintain his dialysis. Dr. Moffett did a surgical debridement. The patient tolerated the treatment well and at the time of discharge the patient was doing well, but he was so weak and he was very difficult to be taken care of by the family that he was then transferred to [facility] facility for continued care with IV antibiotics and dialysis. Please see hospital chart for full details since his discharge summary is not all encompassing. MD ROXY Guerrero/ALLEN /[id number]
== END 2019-05-23 20:36 | DRG 853 ==
LOC: MED/SURG2 15:20
PROVIDERS: ADMIT Internal Medicine; ATTEND Internal Medicine
PROC: 5A1D70Z Performance of Urinary Filtration, Intermittent, Less than 6 Hours Per Day (ICD-10-PCS; 2019-05-14)
PROC: 30243N1 Transfusion of Nonautologous Red Blood Cells into Central Vein, Percutaneous Approach (ICD-10-PCS; 2019-05-16)
PROC: 0JBQ0ZZ Excision of Right Foot Subcutaneous Tissue and Fascia, Open Approach (ICD-10-PCS; 2019-05-20)
PROC: 0JBR0ZZ Excision of Left Foot Subcutaneous Tissue and Fascia, Open Approach (ICD-10-PCS; principal; 2019-05-20 12:30)
DX: A41.9 Sepsis, unspecified organism (principal); N18.6 End stage renal disease; L02.611 Cutaneous abscess of right foot; I12.0 Hypertensive chronic kidney disease with stage 5 chronic kidney disease or end stage renal disease; L03.115 Cellulitis of right lower limb; M86.8X7 Other osteomyelitis, ankle and foot; E11.52 Type 2 diabetes mellitus with diabetic peripheral angiopathy with gangrene; I96 Gangrene, not elsewhere classified; E11.22 Type 2 diabetes mellitus with diabetic chronic kidney disease; G47.33 Obstructive sleep apnea (adult) (pediatric); D63.1 Anemia in chronic kidney disease; W45.8XXA Other foreign body or object entering through skin, initial encounter; E11.69 Type 2 diabetes mellitus with other specified complication; E66.01 Morbid (severe) obesity due to excess calories; I99.8 Other disorder of circulatory system; M10.9 Gout, unspecified; N40.0 Benign prostatic hyperplasia without lower urinary tract symptoms; I25.10 Atherosclerotic heart disease of native coronary artery without angina pectoris; E03.9 Hypothyroidism, unspecified; Z86.73 Personal history of transient ischemic attack (TIA), and cerebral infarction without residual deficits; Z68.35 Body mass index [BMI] 35.0-35.9, adult; J44.9 Chronic obstructive pulmonary disease, unspecified; I25.2 Old myocardial infarction
CPT/HCPCS: 36415; 80048; 80053; 82948; 85025; 85610; 85651; 86140; 86706; 86850; 86900; 86920; 87071; 87075; 87186; 87205; 87340; 88302; 90962; 97139; 99251; J0692; J1644; J1817; J3370; J7030; J7040; J7050; P9016

== ENCOUNTER 2019-08-14 09:56 | Inpatient (IN) | payer MEDICARE, OTHER ==
[~2019-08-14] VITALS: Ht 175.3 cm; Wt 129.7 kg
[~2019-08-14 09:56] MED LIST changes: +CALCIUM ACETAT667 M1 PO; +MONTELUKAST SOD10 MG PO
--- OUTSIDE RECORDS SUMMARY | 2019-08-14 10:01 | XMS REPORT | Clinical Summary ---
Author Author KOLTON [employer] [facility] [employer] 360[facility] Address Unknown Phone Unavailable Care Team Providers Care Sensitizer Name Role Phone Dima Pace PCP Allergies Comments Active Allergy Reactions Severity Noted Date Allergic to an antibiotic (not sure of name) Other Itching, 10/27/2013 Swelling Ketorolac Itching, 10/27/2013 Swelling Medications End Date Status Medication Sig Dispensed Refills Start Date Active omega-3 fatty Take by mouth 0 acids-vitamin E 1,000 mg 2 (two) times Cap daily. Active ALLOPURINOL ORAL Take 100 mg 0 by mouth daily . Active cetirizine (ZYRTEC) 10 MG Take 10 mg by 0 tablet mouth daily. Active diphenhydrAMINE Take 25 mg by 0 (BENADRYL) 25 mg tablet mouth every night as needed for Sleep. Active omeprazole (PRILOSEC) 40 Take 40 mg by 0 MG capsule mouth daily. Active traMADol (ULTRAM) 50 mg Take 50 mg by 0 tablet mouth every 6 (six) hours as needed for Pain. Active acetaminophen-codeine Take 1 tablet 0 (TYLENOL #4) 300-60 mg by mouth per tablet every 4 (four) hours as needed for Pain. Active warfarin (COUMADIN) 3 MG Take 6 mg by 0 02/20 tablet mouth daily. 9 Active sevelamer (RENVELA) 800 Take 800 mg 0 03/25/ mg tablet by mouth 3 8 (three) times daily with meals. Active montelukast (SINGULAIR) Take 10 mg by 0 10 mg tablet mouth daily. 9 Active clotrimazole-betamethason Apply 1 0 / e (LOTRISONE) 1-0.05 % application 9 cream topically as needed. Active levothyroxine (SYNTHROID) Take 88 mcg 0 88 MCG tablet by mouth daily. Active sodium chloride 0.9% (NS) Inject 60 0 SolP 250 mL with insulin Units as regular 100 unit/mL Soln directed 3 250 Units (three) times daily with meals. Active insulin NPH human Inject 100 0 isophane (INSULIN NPH Units as ISOPH U-100 HUMAN SUBQ) directed 2 (two) times daily with breakfast and dinner. Active gabapentin (NEURONTIN) Take 300 mg 0 300 MG capsule by mouth as needed. Active insulin NPH (HUMULIN N) Inject 50 10 mL 0 100 unit/mL injection Units 9 subcutaneousl y 2 (two) times daily before meals Use as directed . Active insulin regular (HUMULIN Inject 0.3 10 mL 0 1 R,NOVOLIN R) 100 unit/mL mLs (30 Units 9 injection total) subcutaneousl y 3 (three) times daily before meals Use as directed . Active epoetin emilia-epbx Inject 2 mLs 0 (RETACRIT) 3,000 unit/mL (6,000 Units 9 Soln injection total) subcutaneousl y 3 (three) times a week at bedtime MON/WED/FRI. 03/19/2019 Discontinued insulin regular Inject 60 0 (HUMULIN,NOVOLIN) 100 Units unit/mL injection subcutaneousl y 3 (three) times daily before meals Use as directed . 03/19/2019 Discontinued atenolol (TENORMIN) 50 MG Take 50 mg by 0 tablet mouth daily. 03/19/2019 Discontinued isosorbide mononitrate Take 60 mg by 0 (IMDUR) 60 MG 24 hr mouth daily . tablet 03/19/2019 Discontinued losartan (COZAAR) 50 MG Take 50 mg by 0 tablet mouth daily. 03/19/2019 Discontinued insulin NPH (HUMULIN Inject 100 0 N,NOVOLIN N) 100 unit/mL Units injection subcutaneousl y 2 (two) times daily before meals Use as directed . 03/19/2019 Discontinued levothyroxine (SYNTHROID, Take 88 mcg 0 LEVOTHROID) 75 MCG tablet by mouth Every morning on an empty stomach . 03/19/2019 Discontinued furosemide (LASIX) 40 MG Take 40 mg by 0 tablet mouth 2 (two) times daily. 03/19/2019 Discontinued gabapentin (NEURONTIN) Take 100 mg 0 100 MG capsule by mouth daily. 03/19/2019 Discontinued tamsulosin (FLOMAX) 0.4 Take 0.4 mg 0 mg Cp24 24 hr capsule by mouth daily. 03/19/2019 Discontinued pantoprazole (PROTONIX) Take 40 mg by 0 40 MG tablet mouth daily. 9 03/19/2019 Discontinued atenolol (TENORMIN) 50 MG Take 0.5 0 03/02 tablet tablets (25 9 mg total) by mouth daily. 03/24/2019 sulfamethoxazole-trimetho Take 1 tablet 5 tablet 0 prim (BACTRIM,SEPTRA) (80 mg of 9 400-80 mg per tablet trimethoprim total) by mouth daily for 5 days. 05/09/2019 zinc oxide-petrolatum Apply 5 g 170 g 2 03/02 (CRITIC-AID) 20-51 % Pste topically 2 9 topical paste (two) times daily for 51 days. Active Problems Problem Noted Date Dialysis AV fistula malfunction 03/13/2019 AV graft malfunction 03/13/2019 Parkinson's disease 08/10/2017 End of battery life of deep brain stimulator 018 ESRD needing dialysis Encounters Care Team Description Date Type Specialty 03/16/2019 Travel Lourdes Blanco MD Civunigunta, Narendra, MD Malfunction of arteriovenous graft, init ial encounter (HCC) 03/13/2019 Hospital Cardiology - Encounter 03/19/2019 Lourdes Blanco MD 03/13/2019 Orders Only General Internal Me dicine after 08/13/2018 Social History Date Tobacco Use Types Packs/Day Years Used Never Smoker Smokeless Tobacco: Never Used Alcohol Use Drinks/Week oz/Week Comments No Sex Assigned at Date Recorded Not on file Industry Job Start Date Occupation Not on file Not on file Not on file Travel End Travel History Travel Start No recent travel history available. Last Filed Vital Signs Time Taken Vital Sign Reading 03/19/2019 1:44 PM QUILT MAKER Blood Pressure 133/72 03/19/2019 1:44 PM QUILT MAKER Pulse 95 03/19/2019 1:44 PM QUILT MAKER Temperature 35.7 C (96.3 F) 03/19/2019 1:44 PM QUILT MAKER Respiratory Rate 18 03/19/2019 1:44 PM QUILT MAKER Oxygen Saturation 98% 03/19/2019 3:06 AM QUILT MAKER Inhaled Oxygen 25% Concentration 03/19/2019 6:52 AM QUILT MAKER Weight 129.2 kg (284 lb 13.4 oz) 03/16/2019 11:00 AM QUILT MAKER Height 185.4 cm (6' 1") 03/19/2019 6:52 AM QUILT MAKER Body Mass Index 37.58 Plan of Treatment Not on file Implants Device Identifier Shelf Expiration Date Model / Serial / L ot Implanted Type Area Manufactur er 02/27/2015 52813 / [id number] / Neurostimulator,Activa Rc Bilateral Neuro Right: Leslie st [employer] 39cc - [id number] NEUROMODUL Implanted: Qty: 1 on 10/28/2013 by Pedro Pendleton MD 12/28/2018 [id number] / [id number] / Stimulator Neuro [employer] Pc [id number] - Neuro Right: Ches t [employer]: [id number] NEUROMODUL Implanted: Qty: 1 on 08/10/2017 by Pedro Pendleton MD 01/01/2016 [id number] / / [id number] Pocket Adaptor 2x4 Right: Chest Implanted: Qty: 1 on 10/28/2013 by Pedro Garcias MD Procedures Comments Procedure Name Priority Date/Time Associated Diag nosis RHYTHM STRIP - SCAN 03/21/2019 8:50 AM QUILT MAKER POCT-GLUCOSE METER Routine 03/19/2019 12:23 PM QUILT MAKER HEMODIALYSIS INPATIENT Routine 03/19/2019 11:47 AM QUILT MAKER BASIC METABOLIC PANEL (7) Routine 03/19/2019 7:48 AM QUILT MAKER CBC W/PLT COUNT & AUTO Routine 03/19/2019 DIFFERENTIAL 4:57 AM QUILT MAKER CBC W/PLT COUNT & AUTO Routine 03/19/2019 DIFFERENTIAL 4:57 AM QUILT MAKER POCT-GLUCOSE METER Routine 03/18/2019 9:27 PM QUILT MAKER PERIPHERAL VASCULAR 03/18/2019 REPORT - SCAN 9:22 PM QUILT MAKER POCT-GLUCOSE METER Routine 03/18/2019 5:04 PM QUILT MAKER PROTHROMBIN TIME/INR Routine 03/18/2019 2:09 PM QUILT MAKER POCT-GLUCOSE METER Routine 03/18/2019 11:45 AM QUILT MAKER POCT-GLUCOSE METER Routine 03/18/2019 8:13 AM QUILT MAKER CBC W/PLT COUNT & AUTO Routine 03/18/2019 DIFFERENTIAL 4:10 AM QUILT MAKER CBC W/PLT COUNT & AUTO Routine 03/18/2019 DIFFERENTIAL 4:10 AM QUILT MAKER POCT-GLUCOSE METER Routine 03/17/2019 9:01 PM QUILT MAKER POCT-GLUCOSE METER Routine 03/17/2019 5:07 PM QUILT MAKER VENOUS DOPPLER ARM, RIGHT Routine 03/17/2019 4:10 PM QUILT MAKER IR AV SHUNT/FISTULAGRAM Routine 03/17/2019 2:31 PM QUILT MAKER HEMODIALYSIS INPATIENT Routine 03/17/2019 8:30 AM QUILT MAKER POCT-GLUCOSE METER Routine 03/17/2019 7:33 AM QUILT MAKER CBC W/PLT COUNT & AUTO Routine 03/17/2019 DIFFERENTIAL 4:00 AM QUILT MAKER CBC W/PLT COUNT & AUTO Routine 03/17/2019 DIFFERENTIAL 4:00 AM QUILT MAKER POCT-GLUCOSE METER Routine 03/16/2019 9:20 PM QUILT MAKER POCT-GLUCOSE METER Routine 03/16/2019 5:27 PM QUILT MAKER POCT-GLUCOSE METER Routine 03/16/2019 11:27 AM QUILT MAKER XR CHEST 2 VIEWS Routine 03/16/2019 8:24 AM QUILT MAKER POCT-GLUCOSE METER Routine 03/16/2019 7:53 AM QUILT MAKER CBC W/PLT COUNT & AUTO Routine 03/16/2019 DIFFERENTIAL 4:50 AM QUILT MAKER CBC W/PLT COUNT & AUTO Routine 03/16/2019 DIFFERENTIAL 4:50 AM QUILT MAKER MAGNESIUM Routine 03/16/2019 4:50 AM QUILT MAKER PHOSPHORUS Routine 03/16/2019 4:50 AM QUILT MAKER PROTHROMBIN TIME/INR Routine 03/16/2019 4:50 AM QUILT MAKER CALCIUM, IONIZED Routine 03/16/2019 4:50 AM QUILT MAKER BASIC METABOLIC PANEL (7) Routine 03/16/2019 4:50 AM QUILT MAKER POCT-GLUCOSE METER Routine 03/15/2019 9:01 PM QUILT MAKER XR CHEST 1 VIEW Routine 03/15/2019 PORTABLE/BEDSIDE 7:47 PM QUILT MAKER POCT-GLUCOSE METER Routine 03/15/2019 7:15 PM QUILT MAKER POCT-GLUCOSE METER Routine 03/15/2019 6:36 PM QUILT MAKER POCT-GLUCOSE METER Routine 03/15/2019 6:07 PM QUILT MAKER POCT-GLUCOSE METER Routine 03/15/2019 5:33 PM QUILT MAKER POCT-GLUCOSE METER Routine 03/15/2019 5:11 PM QUILT MAKER POCT-GLUCOSE METER Routine 03/15/2019 4:36 PM QUILT MAKER POCT-GLUCOSE METER Routine 03/15/2019 12:51 PM QUILT MAKER POCT-GLUCOSE METER Routine 03/15/2019 7:57 AM QUILT MAKER CBC W/PLT COUNT & AUTO Routine 03/15/2019 DIFFERENTIAL 5:06 AM QUILT MAKER HEMOGLOBIN A1C Routine 03/15/2019 5:06 AM QUILT MAKER CBC W/PLT COUNT & AUTO Routine 03/15/2019 DIFFERENTIAL 5:06 AM QUILT MAKER MAGNESIUM Routine 03/15/2019 5:06 AM QUILT MAKER PHOSPHORUS Routine 03/15/2019 5:06 AM QUILT MAKER PROTHROMBIN TIME/INR Routine 03/15/2019 5:06 AM QUILT MAKER CALCIUM, IONIZED Routine 03/15/2019 5:06 AM QUILT MAKER BASIC METABOLIC PANEL (7) Routine 03/15/2019 5:06 AM QUILT MAKER HEPATITIS B SURFACE Routine 03/15/2019 ANTIGEN 5:06 AM QUILT MAKER POCT-GLUCOSE METER Routine 03/14/2019 11:57 PM QUILT MAKER POCT-GLUCOSE METER Routine 03/14/2019 8:59 PM QUILT MAKER POCT-GLUCOSE METER Routine 03/14/2019 7:55 PM QUILT MAKER HEMODIALYSIS INPATIENT Routine 03/14/2019 7:05 PM QUILT MAKER POCT-GLUCOSE METER Routine 03/14/2019 5:33 PM QUILT MAKER POCT-GLUCOSE METER Routine 03/14/2019 12:19 PM QUILT MAKER SPUTUM CULTURE + GRAM Routine 03/14/2019 STAIN 9:36 AM QUILT MAKER POCT-GLUCOSE METER Routine 03/14/2019 7:35 AM QUILT MAKER CBC W/PLT COUNT & AUTO Routine 03/14/2019 DIFFERENTIAL 4:56 AM QUILT MAKER CBC W/PLT COUNT & AUTO Routine 03/14/2019 DIFFERENTIAL 4:56 AM QUILT MAKER MAGNESIUM Routine 03/14/2019 4:56 AM QUILT MAKER PHOSPHORUS Routine 03/14/2019 4:56 AM QUILT MAKER PROTHROMBIN TIME/INR Routine 03/14/2019 4:56 AM QUILT MAKER CALCIUM, IONIZED Routine 03/14/2019 4:56 AM QUILT MAKER BASIC METABOLIC PANEL (7) Routine 03/14/2019 4:56 AM QUILT MAKER CBC W/PLT COUNT & AUTO Routine 03/14/2019 DIFFERENTIAL 12:17 AM QUILT MAKER HEPATITIS B CORE Routine 03/14/2019 ANTIBODY, TOTAL 12:17 AM QUILT MAKER HEPATITIS B SURFACE Routine 03/14/2019 ANTIBODY 12:17 AM QUILT MAKER HEPATITIS B SURFACE Routine 03/14/2019 ANTIGEN 12:17 AM QUILT MAKER PHOSPHORUS Routine 03/14/2019 12:17 AM QUILT MAKER MAGNESIUM Routine 03/14/2019 12:17 AM QUILT MAKER COMPREHENSIVE METABOLIC Routine 03/14/2019 PANEL 12:17 AM QUILT MAKER PROTHROMBIN TIME/INR Routine 03/14/2019 12:17 AM QUILT MAKER CBC W/PLT COUNT & AUTO Routine 03/14/2019 DIFFERENTIAL 12:17 AM QUILT MAKER POCT-GLUCOSE METER Routine 03/13/2019 9:30 PM QUILT MAKER after 08/13/2018 Results * RHYTHM STRIP - SCAN (03/21/2019 8:50 AM QUILT MAKER) Narrative Performed At This result has an attachment that is n ot available. * POC-Glucose meter (03/19/2019 12:23 PM QUILT MAKER) Only the most recent of 28 results within the time period is included. POC-Glucose Meter 150 (H)Comment: : TESTED AT 70 - 110 mg/dL [address] [address]: Ruby On Rails Engineer/Reverse Engineer ID = [id number] for THIAGO MAXWELL Specimen Blood Performing Organization Address City/State/Zipcode Ph one Number [address] [facility] * HEMODIALYSIS INPATIENT (03/19/2019 11:47 AM QUILT MAKER) Narrative Performed At Estela Corea RN 03/19/2019 11:5 0 AM Lab Results Component Value Date HEPBSAG Nonreactive 03/15/2019 ] Lab Results Component Value Date GLUCOSE 178 (H) 03/16/2019 CALCIUM 8.4 03/16/2019 NA 135 (L) 03/16/2019 K 4.7 03/16/2019 CO2 27 03/16/2019 CL 100 03/16/2019 BUN 25 (H) 03/16/2019 CREATININE 5.47 (H) 03/16/2019 Lab Results Component Value Date WBC 10.1 03/19/2019 HGB 8.5 (L) 03/19/2019 HCT 27.5 (L) 03/19/2019 MCV 95.2 (H) 03/19/2019 PLT 192 03/19/2019 HD treatment for 4 hours completed. Net UF of 2.7L. Patient stable, no complaints made. Endorsed to nurse. * Basic Metabolic Panel (03/19/2019 7:48 AM QUILT MAKER) Only the most recent of 4 results within the time period is included. Sodium 138 136 - 145 meq/L [facility] Potassium 3.7 3.5 - 5.1 meq/L [facility] Chloride 102 98 - 107 meq/L [facility] CO2 29 22 - 29 meq/L [facility] BUN 18 7 - 21 mg/dL [facility] Creatinine 4.23 (H) 0.57 - 1.25 mg/dL [facility] Glucose 224 (H) 70 - 105 mg/dL [facility] Calcium 8.6 8.4 - 10.2 mg/dL [facility] EGFR 14Comment: ESTIMATED GFR IS mL/min/1.73 sq m [facility] NOT ACCURATE CREATININE [facility] CLEARANCE IN PREDICTING GLOMERULAR FILTRATION RATE. ESTIMATED GFR IS NOT APPLICABLE FOR DIALYSIS PATIENTS. Specimen Blood Performing Organization Address City/State/Zipcode Ph one Number [address] [facility] * CBC with platelet count + automated diff (03/19/2019 4:57 AM QUILT MAKER) Only the most recent of 7 results within the time period is included. WBC 10.1 3.5 - 10.5 K/L [facility] RBC 2.89 (L) 4.63 - 6.08 M/L [facility] Hemoglobin 8.5 (L) 13.7 - 17.5 GM/DL [facility] Hematocrit 27.5 (L) 40.1 - 51.0 % [facility] MCV 95.2 (H) 79.0 - 92.2 fL [facility] MCH 29.4 25.7 - 32.2 pg [facility] MCHC 30.9 (L) 32.3 - 36.5 GM/DL [facility] RDW 15.9 (H) 11.6 - 14.4 % [facility] Platelets 192 150 - 450 K/CU MM [facility] MPV 9.5 9.4 - 12.4 fL [facility] nRBC 0 0 - 0 /100 WBC [facility] % Neutros 72 % [facility] % Lymphs 13 % [facility] % Monos 8 % [facility] % Eos 5 % [facility] % Baso 1 % [facility] # Neutros 7.22 (H) 1.78 - 5.38 K/L [facility] # Lymphs 1.35 1.32 - 3.57 K/L [facility] # Monos 0.83 (H) 0.30 - 0.82 K/L [facility] # Eos 0.50 0.04 - 0.54 K/L [facility] # Baso 0.06 0.01 - 0.08 K/L [facility] Immature 1 0 - 1 % [facility] Granulocytes-Relative [facility] Specimen Blood Performing Organization Address City/[facility] Ph one Number [facility] [address] [place], [place] [address] [facility] * PERIPHERAL VASCULAR REPORT - SCAN (03/18/2019 9:22 PM QUILT MAKER) Narrative Performed At This result has an attachment that is n ot available. * Prothrombin time/INR (03/18/2019 2:09 PM QUILT MAKER) Only the most recent of 5 results within the time period is included. Protime 14.7 (H) 11.9 - 14.2 seconds [facility] INR 1.2 <=5.9 [facility] Specimen Blood Narrative Performed At Effective 08/28/2018: PT Reference Range Change [facility] New: 11.9-14.2Previous: 11.7-14.7 [facility] MEDICAL CE NTER RECOMMENDED COUMADIN/WARFARIN INR THERA PY RANGES STANDARD DOSE: 2.0-3.0Includes: PRO PHYLAXIS for venous thrombosis, systemic embolization; TREATMENT for venous thro mbosis and/or pulmonary embolus. HIGH RISK: Target INR is 2.5-3.5 for pa tients wiht mechanical heart valves. Performing Organization Address City/[facility] Ph one Number [facility] [address] [place], [place] [address] [facility] * Venous doppler arm, right (03/17/2019 4:10 PM QUILT MAKER) Ejection Fraction [facility] Specimen Impressions Performed At Right Impression [facility] 1. There is no deep venous obstruction in the jugular , subclavian, axillary, [facility] brachial, radial or ulnar veins. 2. There is no superficial venous obstr uction in the cephalic or basilic veins. 3. The distal brachial artery to cephal ic vein fistula is patent with the following velocities: anastomosis - 288 cm/sec, distal upper arm - 245 cm/sec, mid upper arm - 93.8 cm/sec, pr oximal upper arm - 89.1 cm/sec, shoulder area - 176 cm/sec and confluen ce - 138 cm/sec. 4. An outflow volume of 962 cc/min is c alculated in the cephalic vein. Conclusions Summary Venous duplex imaging and compression o f the right upper extremity were performed. The veins were adequately vi sualized. The right venous system was patent and compressible with no monse dence of thrombus. The right arm AV fistula was patent with no evidence of stenosis and a volume flow of 962 cc/min. Signature Velocities are measured in cm/s ; Diame ters are measured in cm Narrative Performed At [facility] - Upper Extremities Veins [facility] Demographics [facility] Patient NameARY ALEJO Date of Study 03/17/2019 DO MEDARDO 83 Visit [id number] Date of 1935 Referring [facility] Room Number 1026 Physician Field Assessor JEFF Spangler Physician Procedure Type of Study: Veins: Upper Extremities Veins, VENOUS DOPPLER ARM, RIGHT. Indications for Study:Fistula evaluatio n . Patient Status:Routine. Study Location:Vascular Lab. Technical Quality:Adequate visualizatio n. Risk Factors History of Disease + + +----- + !Diagnosis!Date!Comments ! + + +----- + !History/Risk Factors:!03/17/2019!ESRD, S/P Right arm AV fistula placement ! + + +----- + Procedure Note Interface, External Ris In - 03/18/2019 11:11 AM QUILT MAKER [facility] - Upper Extremities Veins Demographics Patient Name ARY ALEJO Date of Study 03/17/2019 PETRA Age 83 Visit Number [id number] Gender Male Accession Number [id number] Date of 1935 Referring [facility] Room Number 1026 Physician Field Assessor Ramin Giraldo Interpreting ELICIA Giles Physician Procedure Type of Study: Veins: Upper Extremities Veins, VENOUS DOPPLER ARM, RIGHT. Indications for Study:Fistula evaluation . Patient Status:Routine. Study Location:Vascular Lab. Technical Quality:Adequate visualization. Risk Factors History of Disease + + +------ + !Diagnosis !Date !Comments ! + + +------ + !History/Risk Factors:!03/17/2019!ESRD, S/P Right arm AV fistula placement ! + + +------ + Impressions Right Impression 1. There is no deep venous obstruction i n the jugular, subclavian, axillary, brachial, radial or ulnar veins. 2. There is no superficial venous obstru ction in the cephalic or basilic veins. 3. The distal brachial artery to cephali c vein fistula is patent with the following velocities: anastomosis - 288 cm/sec, distal upper arm - 245 cm/sec, mid upper arm - 93.8 cm/sec, proximal upper arm - 89.1 cm/sec, shoulder area - 176 cm/sec and confluence - 138 cm/sec. 4. An outflow volume of 962 cc/min is ca lculated in the cephalic vein. Conclusions Summary Venous duplex imaging and compression of the right upper extremity were performed. The veins were adequately visualized. The right venous system was patent and compressible with no evidence of thrombus. The right arm AV fistula was patent with no evidence of stenosis and a volume flow of 962 cc/min. Signature Velocities are measured in cm/s ; Diameters are measured in cm Performing Organization Address City/State/Zipcode Ph one Number [facility] * IR AV Shunt/Fistulagram (03/17/2019 2:31 PM QUILT MAKER) Specimen Narrative Performed At FINAL REPORT RIS Right upper extremity AV fistulogram, 03/07/2019. History: AV fistula malfunction. Modality: Fluoroscopy Sedation: None Anesthesia:Two percent Lidocaine wi thout epinephrine. Approach:Left upper extremity AV fi stula Estimated blood loss:< 5 cc. Specimen: None. glass production machine operator: Tim Zepeda MD. Shade Maker: Mor. Fluoroscopy Time: 0.2 min. Reference Air Kerma (Ka, r): 32.3 mGy. Technique: Informed written consent was obtained. Discussion of risks, benefits, and alternatives were made with the pat ient. The patient expressed understanding and agreed to proceed. A universal timeout was performed prior to starting the procedu re.All elements maximal sterile barrier technique was utilized for this procedure, including utilization of sterile scrub solution f or skin prep, a large sterile sheet to cover the areas of the patient that were not prepped, and hand hygiene, mask, head covering, and sterile gown for performing radiologist and scrub technologist. The patient's right upper extremity AV fistula was accessed with a micropuncture set. Digital subtraction angiography was then performed to evaluate the dialysis circuit. There is no evidence of hemodynamically significant stenosis. T here is no thrombosis. The central veins are patent. [facility] in place. Impression: No hemodynamically significant stenosis or thrombosis of the right upper extremity fistula. Signed: Tim Zepeda MD Report Verified Date/Time: 9 05:41:14 Reading Location: [facility] P048 Angio Bod y Reading Room Procedure Note Interface, External Ris In - 03/20/2019 5:43 AM QUILT MAKER FINAL REPORT Right upper extremity AV fistulogram, 03/07/2019. History: AV fistula malfunction. Modality: Fluoroscopy Sedation: None Anesthesia: Two percent Lidocaine without epinephrine. Approach: Left upper extremity AV fistula Estimated blood loss: < 5 cc. Specimen: None. glass production machine operator: Tim Zepeda MD. Shade Maker: Mor. Fluoroscopy Time: 0.2 min. Reference Air Kerma (Ka, r): 32.3 mGy. Technique: Informed written consent was obtained. Discussion of risks, benefits, and alternatives were made with the patient. The patient expressed understanding and agreed to proceed. A universal timeout was performed prior to starting the procedure. All elements maximal sterile barrier technique was utilized for this procedure, including utilization of sterile scrub solution for skin prep, a large sterile sheet to cover the areas of the patient that were not prepped, and hand hygiene, mask, head covering, and sterile gown for performing radiologist and scrub technologist. The patient's right upper extremity AV fistula was accessed with a micropuncture set. Digital subtraction angiography was then performed to evaluate the dialysis circuit. There is no evidence of hemodynamically significant stenosis. There is no thrombosis. The central veins are patent. A tunneled right internal jugular hemodialysis catheter is in place. Impression: No hemodynamically significant stenosis or thrombosis of the right upper extremity fistula. Signed: Tim Zepeda MD Report Verified Date/Time: 03/20/2019 05:41:14 Reading Location: [facility] P048 Angio Body Reading Room Performing Organization Address City/State/Zipcode Ph one Number [facility] RIS * XR chest 2 views (03/16/2019 8:24 AM QUILT MAKER) Specimen Narrative Performed At FINAL REPORT [employer] CHEST, AP AND LATERAL. HISTORY: Cough. COMPARISON: 03/15/2019. Impression: Right IJ tunneled dialysis catheter palak ntified in stable position. Electronic stimulator device with leads extending cephalad out of the [id number] again noted. The trachea is midline. There are bibas ilar opacity suggestive of atelectasis. There is no evidence for l arge focal consolidation, pneumothorax, or significant pleural ef fusion. The cardiomediastinal silhouette is stable in appearance. No acute osseous abnormality is identified. Signed: Mitchel Gar MD Report Verified Date/Time: 9 09:36:48 Reading Location: [facility] C013Y CT Body Reading Room Procedure Note Interface, External Ris In - 03/16/2019 9:39 AM QUILT MAKER FINAL REPORT CHEST, AP AND LATERAL. HISTORY: Cough. COMPARISON: 03/15/2019. Impression: Right IJ tunneled dialysis catheter identified in stable position. Electronic stimulator device with leads extending cephalad out of the [id number] again noted. The trachea is midline. There are bibasilar opacity suggestive of atelectasis. There is no evidence for large focal consolidation, pneumothorax, or significant pleural effusion. The cardiomediastinal silhouette is stable in appearance. No acute osseous abnormality is identified. Signed: Mitchel Gar MD Report Verified Date/Time: 03/16/2019 09:36:48 Reading Location: [place] 32576Y CT Body Reading Room Performing Organization Address [facility] Ph one Number GE RIS * Calcium, Ionized (03/16/2019 4:50 AM QUILT MAKER) Only the most recent of 3 results within the time period is included. Calcium, Ion 1.05 (L) 1.12 - 1.27 mmol/L [facility] pH, Blood 7.44 [facility] Specimen Blood Performing Organization Address [facility] Ph one Number [address] [facility] * Phosphorus (03/16/2019 4:50 AM QUILT MAKER) Only the most recent of 4 results within the time period is included. Phosphorus 2.6 2.3 - 4.7 mg/dL [facility] Specimen Blood Performing Organization Address [facility] Ph one Number [address] [facility] * Magnesium (03/16/2019 4:50 AM QUILT MAKER) Only the most recent of 4 results within the time period is included. Magnesium 1.8 1.6 - 2.6 mg/dL [facility] Specimen Blood Performing Organization Address City/[facility] Ph one Number [facility] [address] [place], [place] [facility] [facility]ENTER * XR chest 1 view portable / bedside (03/15/2019 7:47 PM QUILT MAKER) Specimen Narrative Performed At FINAL REPORT GE RIS RAD, CHEST, 1 VIEW, NON DEPT INDICATION: cough COMPARISON: July 23, 2017 FINDINGS: Portable frontal view of the chest. IMPRESSION: Support Lines: Right chest electronic d evice with leads extending cephalad above the field of view is sta ble in appearance. Right paraspinal catheter suggestive of dialy sis catheter is obscured but tip projects at the level of the distal SVC. Lungs and pleura: No focal lung consoli dation or significant pleural effusion. No pneumothorax. Stable mild coarsening of the perihilar interstitial markings. Heart and mediastinum: Enlarged cardiom ediastinal silhouette is magnified by technique but suggestive o f cardiomegaly. Additional findings: None. Signed: Will Mckeon MD Report Verified Date/Time: 9 05:33:32 Procedure Note Interface, External Ris In - 03/16/2019 5:35 AM QUILT MAKER FINAL REPORT RAD, CHEST, 1 VIEW, NON DEPT INDICATION: cough COMPARISON: July 23, 2017 FINDINGS: Portable frontal view of the chest. IMPRESSION: Support Lines: Right chest electronic device with leads extending cephalad above the field of view is stable in appearance. Right paraspinal catheter suggestive of dialysis catheter is obscured but tip projects at the level of the distal SVC. Lungs and pleura: No focal lung consolidation or significant pleural effusion. No pneumothorax. Stable mild coarsening of the perihilar interstitial markings. Heart and mediastinum: Enlarged cardiomediastinal silhouette is magnified by technique but suggestive of cardiomegaly. Additional findings: None. Signed: Will Mckeon MD Report Verified Date/Time: 03/16/2019 05:33:32 Performing Organization Address City/[facility]/Zipcode Ph one Number GE RIS * Hepatitis B surface antigen (03/15/2019 5:06 AM QUILT MAKER) Only the most recent of 2 results within the time period is included. HBsAg Screen Nonreactive Nonreactive [facility] Specimen Blood Performing Organization Address City/[facility] one Number [address] [facility] * Hemoglobin A1c (03/15/2019 5:06 AM QUILT MAKER) Hemoglobin A1C 7.8 (H) 4.3 - 6.1 % [facility] Specimen Blood Performing Organization Address [facility] one Number [address] [facility] * HEMODIALYSIS INPATIENT (03/14/2019 7:05 PM QUILT MAKER) Narrative Performed At Pawel Gomez RN 03/14/2019 7:07 PM Lab Results Component Value Date WBC 8.8 03/14/2019 HGB 8.7 (L) 03/14/2019 HCT 28.4 (L) 03/14/2019 MCV 94.7 (H) 03/14/2019 PLT 218 03/14/2019 HD treatement [id number] completed tolerat ed well,UF 3.5liters removed,no complaints.Pwael Gomez RN * Sputum Culture + Gram Stain (03/14/2019 9:36 AM QUILT MAKER) Result 2+ Methicillin resistant [facility] Staphylococcus aureus (A) [facility] Gram Stain Result <1+ White blood cells seen [facility] Gram Stain Result 0-5 epithelial cells [facility] Gram Stain Result 2+ gram positive cocci in [facility] Specimen Sputum - Expectorated Narrative Performed At 4+ Normal respiratory erick present [facility] Antibiotic Method Susceptibility Organism Clindamycin >=4: Resistant Methicillin resistant Staphylococcus aureus Erythromycin >=8: Resistant Methicillin resistant Staphylococcus aureus Linezolid 2: Susceptible Methicillin resistant Staphylococcus aureus Oxacillin >=4: Resistant Methicillin resistant Staphylococcus aureus Rifampin <=0.5: Susceptible Methicillin resistant Staphylococcus aureus Tetracycline <=1: Susceptible Methicillin resistant Staphylococcus aureus Trimethoprim + Sulfamethoxazole <=10: Susceptible Methicillin resistant Staphylococcus aureus Vancomycin 1: Susceptible Methicillin resistant Staphylococcus aureus Performing Organization Address City/[facility] one Number [address] [facility] * Hepatitis B core antibody, total (03/14/2019 12:17 AM QUILT MAKER) Hep B Core Total Ab Nonreactive Nonreactive [facility] Specimen Blood Performing Organization Address City/[facility] one Number [address] [facility] * Hepatitis B surface antibody (03/14/2019 12:17 AM QUILT MAKER) Hep B S Ab 67.5 (H) <8.0 mIU/mL [facility] Specimen Blood Performing Organization Address [facility] one Number [address] [facility] * Comprehensive metabolic panel (03/14/2019 12:17 AM QUILT MAKER) Protein, Total 6.2 6.0 - 8.3 gm/dL [facility] Albumin 3.1 (L) 3.5 - 5.0 g/dL [facility] Alkaline Phosphatase 89 40 - 150 U/L [facility] Total Bilirubin 0.5 0.2 - 1.2 mg/dL [facility] Sodium 136 136 - 145 meq/L [facility] Potassium 3.6 3.5 - 5.1 meq/L [facility] Chloride 98 98 - 107 meq/L [facility] CO2 30 (H) 22 - 29 meq/L [facility] BUN 26 (H) 7 - 21 mg/dL [facility] Creatinine 5.11 (H) 0.57 - 1.25 mg/dL [facility] Glucose 279 (H) 70 - 105 mg/dL [facility] Calcium 8.4 8.4 - 10.2 mg/dL [facility] AST 11 5 - 34 U/L [facility] ALT 17 6 - 55 U/L [facility] EGFR 11Comment: ESTIMATED GFR IS mL/min/1.73 sq m [facility] NOT ACCURATE CREATININE [facility] CLEARANCE IN PREDICTING GLOMERULAR FILTRATION RATE. ESTIMATED GFR IS NOT APPLICABLE FOR DIALYSIS PATIENTS. Specimen Blood Performing Organization Address City/State/Zipcode Ph one Number [address] [facility] after 08/13/2018 Insurance Payer Benefit Subscriber ID Type Phone Address Plan / Group MEDICARE MEDICARE A xxxxxxxxxxx Medicare B MCR SUPPLEMENT/INDIVIDUAL AARP/UNITE xxxxxxxxxxx [facility] D HEALTHCARE Ary Alejo Personal/F Self 1935 [id number] am[address] (Home) [facility] [place] [phone] Advance Directives For more information, please contact: [address] [phone] Date Inactivated Comments Code Status Date Activated 03/19/2019 4:01 PM Full Code 03/13/2019 11:30 PM This code status was determined by: Patient 03/13/2019 11:30 PM Full Code 03/13/2019 8:08 PM This code status was determined by: Patient 08/10/2017 6:21 PM Full Code 08/10/2017 7:20 AM This code status was determined by: Patient
--- OUTSIDE RECORDS SUMMARY | 2019-08-14 10:04 | XMS REPORT | Summary of Care ---
Author Author [facility] Organization [facility] Address Unknown Phone Unavailable Care Team Providers Care Legal Transcriptionist Name Role Phone Katelynn Dima Silva PCP Gil Tam Unavailable Reason for Visit * Reason Comments Movement Disorder * Consult, Test & Treat (Routine) Referred By Contact Referred To Contact Status Reason Specialty Diagnoses / Procedures Ramila Alexander MD Taneff, Yutong E., FIXED INTEREST DEALER [address] [address] Authorization Neurology Diagnoses Not Needed Essential tremor mychart request P rocedures GA ELEC FABIAN IMPLT BRN NPGT PRGRMG 1ST 15 MIN GA ELEC FABIAN IMPLT BRN NPGT PRGRMG EA ADDL 15 MIN GA OFFICE OUTPATIENT VISIT 40 MINUTES DEEP BRAIN STIMULATION 30 Encounter Details Care Team Description Date Type Department Poly Hernandez NP [address] [id number] Movement Disorder 05/06/2019 Office Visit [facility] Neurology [address] [facility], [address] [place] [address] Allergies Comments Active Allergy Reactions Severity Noted Date Nsaids Itching, 10/27/2013 Swelling Allergic to an antibiotic (not sure of name) Pt doesn't know the name of injection Reaction of a combination of 2 injections Other Itching, 10/20/2013 Swelling documented as of this encounter (statuses as of 05/06/2019) Medications End Date Status Medication Sig Dispensed Refills Start Date Active atenolol (TENORMIN) 50 MG 0 tablet 4 Active isosorbide mononitrate 0 (IMDUR) 60 MG CR tablet 4 Active Delanson-3 Fatty Acids (FISH Take by 0 OIL OR) mouth. Active allopurinol (ZYLOPRIM) Take 100 mg 0 300 MG tablet by mouth nightly. Active Tamsulosin HCl 0.4 MG Take 0.4 mg 0 CAPS by mouth two times daily. Active HUMULIN N 100 UNIT/ML 100 Units. 0 12/14/19 1 injectionIndications: 7 Inject 60 iu per meal. Active levothyroxine (SYNTHROID) 0 75 MCG tablet 8 Active gabapentin (NEURONTIN) Take 300 mg 0 01 100 MG capsule by mouth 3 8 times daily as needed. Active valsartan (DIOVAN) 40 MG Take 40 mg by 0 03/01 tablet mouth 8 nightly. Active Sevelamer Carbonate 800 Take 800 mg 0 MG TABS by mouth 3 8 times daily. 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 Foot drop, bilateral 02/22/2015 Tremor, essential 06/23/2014 DEEP BRAIN STIMULATOR - BILAT VIM - MEDTRONIC 2014 Lymphedema 06/23/2014 Hereditary and idiopathic peripheral neuropathy 06/01 Essential tremor 10/22/2013 documented as of this encounter (statuses as of 05/06/2019) Immunizations Name Administration Dates Next Due Influenza (whole) 12/18/2014, 01/25/2014 Influenza Hd 12/31/2016 documented as of this encounter Social History Date Tobacco Use Types Packs/Day Years Used Never Smoker Smokeless Tobacco: Never Used Drinks/Week oz/Week Comments Alcohol Use No Sex Assigned at Date Recorded Not on file Industry Job Start Date Occupation Not on file Not on file Not on file Travel End Travel History Travel Start No recent travel history available. documented as of this encounter Last Filed Vital Signs Reading Time Taken Comments Vital Sign 143/67 05/06/2019 10:12 AM [employer] Blood Pressure 67 05/06/2019 10:12 AM [employer] CONSERVATIONIST Pulse - - Temperature - - Respiratory Rate - - Oxygen Saturation - - Inhaled Oxygen Concentration 130.6 kg (288 lb) 05/06/2019 10:12 AM [employer] CONSERVATIONIST Weight 185.4 cm (6' 1") 05/06/2019 10:12 AM [employer]SLAND CONSERVATIONIST Height 38 05/06/2019 10:12 AM [employer]SLAND CONSERVATIONIST Body Mass Index documented in this encounter Progress Notes * Poly Hernandez, FIXED INTEREST DEALER - 05/06/2019 10:00 AM [employer]SLAND CONSERVATIONIST FOLLOW-UP VISIT History The patient is a 83 y.o. male with ET and bilateral Vim-DBS ([employer]). Tremor has been stable though he hopes better control of R hand tremor. He had aspiration from vomiting during dialysis and was hospitalized for almost 2 months. He was incubated for almost 2 weeks. Since then he had difficulty with swallowin g. 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 He is doing wound care and antibiotics for his R foot ulcer. He gets very fatigue with dialysis. He will have home physical therapy. ROS: Constitutional: Normal, no fatigue Eyes: no pain, no blurriness ENT: No recent sinus, ear, or throat infections. No decreased hearing, no tinnit us Respiratory: No SOB no Cough Cardio: no chest pressure, no chest pain, no heart racing GI: No constipation, no diarrhea : no frequency, no urgency, no incontinence, no hesitation, no retention Skin/Teg: No skin rashes. Musculoskeletal: no weakness, no stiffness Psychiatric: no depression, no anxiety, no memory problems Endocrine: None Neurological: as above Examination: BP 143/67 (BP Location: left leg, Patient Position: Sitting, Cuff Size: large) | Pulse 67 | Ht 6' 1" (1.854 m) | Wt 288 lb (130.6 kg) | BMI 38.00 kg/m General: The patient is well appearing and in no distress. Mental Status: The patient is alert and oriented to person, time, and place. S peech is fluent with good comprehension. There are no abnormal perceptions, manish lucinations, delusions, or illusions. The patient is able to follow three-step commands. Cranial Nerve Examination: Pupils are equal, round, and reactive to light. Vis ual laboy are full. Ocular movements are full with no evidence of nystagmus or abnormal saccades. There are no square-wave jerks. Normal light touch within t he distribution of the fifth cranial nerve. No facial asymmetry or dysarthria. Hearing is normal to finger rub bilaterally. Tongue and palate are in the midli ne. 5/5 trapezius strength. Reflexes: 2/4 and symmetric in the biceps, triceps, brachioradialis, quadriceps , and ankle jerks. Plantar response is flexor. Motor: The patient has normal tone and bulk, and 5/5 strength in the upper and l ower extremities. Bradykinesia:none Rigidity: none Involuntary Movements: Tremor: 1+ postural tremor in R hand, 2+ kinetic tremor in R hand. Coordination: The patient has normal upaveq-whra-uazlso and kzfy-sk-nydq. There is no evidence of dysdiadokinesis with rapid alternating movements. Gait, Balance and Posture:Patient sits in the wheelchair L Vim: interleaving setting, C+1- 2.3, C+2- 1.0->1.4 R Vim: C+6-2., no change. Current Outpatient Medications Medication Sig Dispense Refill allopurinol (ZYLOPRIM) 300 MG tablet Take 100 mg by mouth nightly. atenolol (TENORMIN) 50 MG tablet gabapentin (NEURONTIN) 100 MG capsule Take 300 mg by mouth 3 times daily as needed. HUMULIN N 100 UNIT/ML injection 100 Units. isosorbide mononitrate (IMDUR) 60 MG CR tablet levothyroxine (SYNTHROID) 75 MCG tablet Delanson-3 Fatty Acids (FISH OIL OR) Take by mouth. Sevelamer Carbonate 800 MG TABS Take 800 mg by mouth 3 times daily. Take 2 t ablets TID Each meal Tamsulosin HCl 0.4 MG CAPS Take 0.4 mg by mouth two times daily. valsartan (DIOVAN) 40 MG tablet Take 40 mg by mouth nightly. No current facility-administered medications for this visit. Diagnosis: Patient Active Problem List Diagnosis Essential tremor Tremor, essential DEEP BRAIN STIMULATOR - BILAT VIM - MEDTRONIC Lymphedema Hereditary and idiopathic peripheral neuropathy Foot drop, bilateral Extrapyramidal dysarthria End-stage renal disease on hemodialysis (HCCode) Assessment: -83 y.o. male with ET and bilateral Vim-DBS. He was incubated for 2 weeks due to aspiration from emesis during dialysis. 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 Right hand tremor is not very bothersome. DBS: slightly increase interleaving setting amplitude of L Vim. Plan: - Follow up in 6 month. Complex decision making included a review of multiple treatment options for the primary as well as comorbid conditions. In addition to counseling about regular exercise program, I discussed with the patient possible side effects of prescrib ed treatments such as drowsiness and other potential risks, as well as the impor tance of regular check-ups with the primary care physician. After addressing all questions, counseling and education was done as appropriate, and the patient was invited to communicate with us via [employer] and to review our website [email or web address] for further information. I spent 25 minutes face to face with the patient and more than 51% of that time was counseling and education. CORNELIA Rainey. [facility] Department of Neurology [address], [address] [place] [address] Appointments: [phone] Web: [email or web address] SLAND CONSERVATIONIST documented in this encounter Plan of Treatment Care Team Description Date Type Specialty Poly Hernandez NP [address] [place] [address] [phone] 11/04/2019 Office Visit Neurology Health Maintenance Due Date Last Done Comments TETANUS SHOT (ADULT) 1950 BMI FOLLOW UP PLAN 06[birth year]16/1953 FALL SCREEN 2002 PNEUMOVAX >=65 (PPSV23) 2002 PREVNAR >= 65 (PCV13) 2002 MEDICARE AWV (Initial) 04/02/2012 FLU VACCINE > 6 MONTHS 10/31/2018 02/18/2018, 04/2016, 12/18/2014, Additional history exists documented as of this encounter Results Not on filedocumented in this encounter Visit Diagnoses Diagnosis Essential tremor - Primary Essential and other specified forms of tremor DEEP BRAIN STIMULATOR - BILAT VIM - MED TRONIC Fitting and adjustment of neuropacemake r (brain) (peripheral nerve) (spinal cord) documented in this encounter Insurance Type Payer Benefit Subscriber ID Effective Phone Address Plan / Dates Group Medicare MEDICARE MEDICARE xxxxxxxxxxx 2019- [address] Present [id number] [place] [address] Medicare [employer] AARP xxxxxxxxxxx 2012-P [address] [place]ICARE [place] [id number] SUPPLEMENT [facility] [place] [phone] documented as of this encounter Advance Directives For more information, please contact: [phone] Patient Box Storage Worker Explanation Type Date Recorded Advance Directives and Living Will Power of Dishwasher
--- OUTSIDE RECORDS SUMMARY | 2019-08-14 10:04 | XMS REPORT ---
Author Author [facility] t Organization [facility] Address [address] [facility] [address] [address] [place] [address] Phone Unavailable Care Team Providers Care Asset Card Clerk Name Role Phone WELLINGTON PACE MD PCP WELLINGTON PACE Attphys Unavailable David WHALEY, Wilian Pang Attphys GASPER, KURTIS Attphys Unavailable WILFRIDO ADDISON Attphys Unavailable Matthew ORNELAS Attphys Unavailable DESHAUN RASCON Attphys Unavailable RADHA GARCIAS Attphys Unavailable AVILA HAMILTON Attphys Unavailable WELLINGTON PACE Admphys Unavailable GASPER, KURTIS Admphys Unavailable FE HERNANDEZ Admphys Unavailable YUNIEL, RADHA Admphys Unavailable Payers Payer Name Policy Type Policy Number Effective Date Expiration Date Dave bustamante [facility] [id number] 2019 00:00:00 [facility] Medicare A & B [id number] 2001 00:00:00 [facility] [id number] 2019 00:00:00 [facility] Medicare A & B [id number] 2001 00:00:00 [facility] [id number] 2018 00:00:00 [facility] Medicare A & B [id number] 2001 00:00:00 [facility] Medicare A & B [id number] 2001 00:00:00 [facility] [id number] [facility] Medicare A & B [id number] 2001 00:00:00 [facility] [id number] [facility] [id number] 2017 00:00:00 [facility] Medicare A & B [id number] 2001 00:00:00 [facility] [id number] 2017 00:00:00 [facility] Medicare A & B [id number] 2001 00:00:00 [facility] [id number] 2017 00:00:00 [facility] Medicare A & B [id number] 2001 00:00:00 [facility] [id number] 2017 00:00:00 [facility] Medicare A & B [id number] 2001 00:00:00 [facility] AAR [id number] 2017 00:00:00 [facility] Medicare A & B [id number] 2001 00:00:00 [facility] Problems Condition Name Condition Details Condition Category Status Onset Date Resolution Date Last Treatment Date Treating Clinician Comments Source Cystitis Cystitis Problem Active 2014-01-27 00:00:00 [facility] Urinary tract infection Urinary tract infection Problem Active 2014-01-27 00:00:00 [facility] Diarrhea Diarrhea Problem Active [facility] Cellulitis Cellulitis Problem Active [facility] Foreign body in right foot Foreign body in right foot Problem Active [facility] Allergies, Adverse Reactions, Alerts Allergy Name Allergy Type Status Severity Reaction(s) Onset Date Inacti ve Date Treating Clinician Comments Source ceftriaxone DA Active SV 2019-02-01 00:00:00 [facility] ceftriaxone DA Active 2019-01-16 00:00:00 [facility] ceftriaxone DA Active SV 2018-11-09 00:00:00 [facility] No Known Allergies DA Active U 2018-01-07 00:00:00 [facility] Ceftriaxone Allergy to Substance Active Severe 2017-12-22 00:00:00 [facility] No Known Allergies DA Active U 2016-07-28 00:00:00 [facility] Medications Ordered Medication Name Filled Medication Name Start Date Stop Da te Current Medication? Ordering Clinician Indication Dosage Frequency Signature (SIG) Comments Components Source Atenolol 50 Mg Tablet Atenolol 50 Mg Tablet 2019-04-23 00:00:00 Yes Briana Olivas Echocardiography Tech 25 Daily [facility] Allopurinol 300 Mg Tablet Allopurinol 300 Mg Tablet Yes 300 Daily [facility] Calcium Acetate 667 Mg Capsule Calcium Acetate 667 Mg Capsule Yes 667 Before Meals [facility] Gabapentin 300 Mg Capsule Gabapentin 300 Mg Capsule Yes 300 As Needed for Nerve Pain [facility] Insulin Human Nph (Humulin N) 100 Units/Ml Ml Insulin Human Nph (Humulin N) 100 Units/Ml Ml Yes 60 Daily [facility] Insulin Human Nph (Humulin N) 100 Units/Ml Ml Insulin Human Nph (Humulin N) 100 Units/Ml Ml Yes 60 Bedtime [facility] Insulin Regular, Human (Humulin R) 100 Unit/1 Ml Vial Insulin Regular, Human (Humulin R) 100 Unit/1 Ml Vial Yes 40 Before Meals [facility] Levothyroxine Sodium 88 Mcg Tablet Levothyroxine Sodium 88 Mcg Tablet Yes 88 Daily [facility] Montelukast Sodium 10 Mg Tablet Montelukast Sodium 10 Mg Tablet Yes 10 Daily [facility] Pantoprazole Sodium (Protonix) 40 Mg Tablet. Pantopr azole Sodium (Protonix) 40 Mg Tablet. Yes 40 Daily [facility] Tamsulosin Hcl (Flomax*) 0.4 Mg Cap Tamsulosin Hcl (Flomax*) 0.4 Mg C ap Yes .4 Daily [facility] Warfarin Sodium (Coumadin*) 3 Mg Tablet Warfarin Sodium (Cou madin*) 3 Mg Tablet Yes 4 Today At 5:00PM [facility] Gabapentin 300 Mg Capsule, 300 Mg Oral Gabapentin 300 Mg Capsule , 300 Mg Oral 2019-05-13 00:00:00 No 300 Every 8 Hours as nee ded for Pain [facility] Sevelamer Hcl (Renagel) 800 Mg Tablet, 1600 Mg Oral Se velamer Hcl (Renagel) 800 Mg Tablet, 1600 Mg Oral 2019-05-13 00:00:00 No 1600 Three Times A Day [facility] Atenolol 50 Mg Tablet, 50 Mg Oral Atenolol 50 Mg Tablet, 50 Mg O ral 2019-04-17 00:00:00 No 50 Daily [facility] Furosemide 40 Mg Tablet, 40 Mg Oral Furosemide 40 Mg Tablet, 40 Mg Oral 2019-04-17 00:00:00 No 40 Twice A Day [facility] Isosorbide Mononitrate (Isosorbide Mononitrate Er) 30 Mg Tab.er.24h, 60 Mg Oral Isosorbide Mononitrate (Isosorbide Mononitrate Er) 30 Mg Tab.er.24h, 60 Mg Oral 2019-04-17 00:00:00 No 60 Daily [facility] Losartan Potassium (Cozaar) 50 Mg Tab, 1 Tab Oral Losa rtan Potassium (Cozaar) 50 Mg Tab, 1 Tab Oral 2019-04-17 00:00:00 No 1 Daily [facility] [place]-3 Fatty Acids/Fish Oil (Fish Oil 1 ,200 Mg Softgel) 1 Each Capsule, 1 Cap Oral [place]-3 Fatty Acids/Fish Oil (Fish Oil 1 ,200 Mg Softgel) 1 Each Capsule, 1 Cap Oral 2019-04-17 00:00:00 No 1 Twice A Day [facility] Atenolol 50 Mg Tablet, 25 Mg Oral Atenolol 50 Mg Tablet, 25 Mg O ral 2016-07-29 00:00:00 No 25 Bedtime [facility] Insulin Human Regular (Humulin R U-500*) 500 Unit/1 Ml Inj, Units Sub-Q Insulin Human Regular (Humulin R U-500*) 500 Unit/1 Ml Inj, Units Sub-Q 2016-07-29 00:00:00 No Before Meals [facility] Isosorbide Mononitrate 60 Mg Tab.er.24h, 10 Mg Oral Is osorbide Mononitrate 60 Mg Tab.er.24h, 10 Mg Oral 2016-07-29 00:00:00 No 10 E very Morning [facility] Aspirin 325 Mg Tablet, 325 Mg Oral Aspirin 325 Mg Tablet, 325 Mg Oral 2015-09-15 00:00:00 No 325 Bedtime [facility] Insulin Human Regular (Humulin R U-500*) 500 Unit/1 Ml Inj, 32 Units Sub-Q Insulin Human Regular (Humulin R U-500*) 500 Unit/1 Ml Inj, 32 Units Sub-Q 2015-09-15 00:00:00 No 32 Before Breakfast [facility] Insulin Human Regular (Humulin R U-500*) 500 Unit/1 Ml Inj, 28 Units Sub-Q Insulin Human Regular (Humulin R U-500*) 500 Unit/1 Ml Inj, 28 Units Sub-Q 2015-09-15 00:00:00 No 28 Before Lunch [facility] Sulfamethoxazole/Trimethoprim (Bactrim Ds Tablet) 1 Ea ch Tablet, 1 Tab Oral Sulfamethoxazole/Trimethoprim (Bactrim Ds Tablet) 1 Each Tablet, 1 Tab Oral 2015-09-15 00:00:00 No 1 Twice A Day [facility] Asa/Calcium Carb/Mag/Al Hydrox (Ascripti n 325 Mg Tablet) 325 Mg Tablet, 325 Mg Oral Asa/Calcium Carb/Mag/Al Hydrox (Ascripti n 325 Mg Tablet) 325 Mg Tablet, 325 Mg Oral 2012-10-21 00:00:00 No 325 Every Morning [facility] Klor-Con , 10 Meq Oral Klor-Con , 10 Meq Oral 2012-10-21 00:00:00 No 10 Daily [facility] Levothyroxine Sodium 75 Mcg Tablet, 75 Mcg Oral Levoth yroxine Sodium 75 Mcg Tablet, 75 Mcg Oral 2012-10-21 00:00:00 No 75 Zuleyma y [facility] Tricor , 48 Mg Oral Tricor , 48 Mg Oral 2012-10-21 00:00:00 No 48 Bedtime [facility] Humulin R 500 , Humulin R 500 , 2012-06-04 00:00:00 No [facility] Levothyroxine Sodium (Synthroid) 100 Mcg Tablet, 100 M cg Oral Levothyroxine Sodium (Synthroid) 100 Mcg Tablet, 100 Mcg Oral 2012-06-04 00:00:00 N o 100 Daily [facility] Insulin Regular, Human (Humulin R) 500 Unit/1 Ml Vial, 24 Units Subcutaneously Insulin Regular, Human (Humulin R) 500 Unit/1 Ml Vial, 24 Units Subcutaneously 2011-11-24 00:00:00 No 24 Before Breakfast [facility] Insulin Regular, Human (Humulin R) 500 Unit/1 Ml Vial, 22 Units Subcutaneously Insulin Regular, Human (Humulin R) 500 Unit/1 Ml Vial, 22 Units Subcutaneously 2011-11-24 00:00:00 No 22 Before Lunch [facility] Insulin Regular, Human (Humulin R) 500 Unit/1 Ml Vial, 18 Units Subcutaneously Insulin Regular, Human (Humulin R) 500 Unit/1 Ml Vial, 18 Units Subcutaneously 2011-11-24 00:00:00 No 18 Before Dinner [facility] Procedures Procedure Date / Time Performed Performing Clinician [facility] e Excision of neuroma 2019-05-20 00:00:00 JAYCEE HUDDLESTON [facility] PERFORMANCE OF URINARY FILTRATION, <6 HRS/DAY 2019-04-25 00:00:0 0 [facility] PERFORMANCE OF URINARY FILTRATION, <6 HRS/DAY 2019-04-23 00:00:0 0 [facility] PLAIN RADIOGRAPHY OF ABDOMINAL AORTA USING L OSM CONTRAST 21-04-19 00:00:[address] [facility] PLAIN RADIOGRAPHY OF R LOW EXTREM ART USING L OSM CONTRAST 2 00:00:[address] [facility] PERFORMANCE OF URINARY FILTRATION, <6 HRS/DAY 2019-04-21 00:00:0 0 [facility] PERFORMANCE OF URINARY FILTRATION, <6 HRS/DAY 2019-04-18 00:00:0 0 [facility] Encounters Start Date/Time End Date/Time Encounter Type Admission Type [facility] Care Department Encounter ID Source 2019-05-13 15:20:00 2019-05-23 20:36:00 Discharged Inpatient 3 WELLINGTON PACE [facility] [id number] [facility] 2019-05-06 09:56:20 2019-05-06 10:37:05 Office Visit Poly Renner [facility] [id number] 2019-04-17 14:05:00 2019-04-25 13:52:00 Discharged Inpatient 1 WE[facility] PACE [facility] [id number] [facility] 2019-03-13 12:59:00 2019-03-13 17:06:00 Departed Emergency Room 1 WILFRIDO ADDISON [facility] [id number] [facility] 2018-11-06 11:57:00 2018-11-06 12:28:00 Departed Emergency Room [facility] [id number] [facility] 2018-06-13 20:31:00 2018-06-13 23:34:00 Departed Emergency Room 1 MICKEY ORNELAS [facility] [id number] [facility] 2017-12-21 18:38:00 2018-01-07 21:10:00 Discharged Inpatient 1 [facility] PACE [facility] [id number] [facility] 2017-10-31 17:25:00 2017-10-31 17:25:00 Registered Clinic 3 CINDY RASCONVINCENT [facility] [id number] [facility] 2017-08-31 12:40:00 2017-09-29 23:59:00 Discharged Recurring [facility] [id number] [facility] 2017-09-05 11:32:00 2017-09-05 11:32:00 Registered Clinic 3 WELL[place] PACE [facility] [id number] [facility] 2017-08-06 11:57:00 2017-08-30 23:59:00 Discharged Recurring [facility] [id number] [facility] 2017-07-31 12:21:00 2017-07-31 12:21:00 Registered Clinic EL AVILA HAMILTON [facility] [id number] [facility] 2017-07-03 09:52:00 2017-07-30 23:59:00 Discharged Recurring [facility] [id number] [facility] 2017-06-19 15:43:00 2017-06-19 17:03:00 Departed Emergency Room [facility] [id number] [facility] 2017-06-13 08:09:00 2017-06-13 08:09:00 Registered Clinic AVILA WILKINSON [facility] [id number] [facility] 2017-04-06 12:04:00 2017-04-06 12:04:00 Registered Clinic [facility] [id number] [facility] 2017-01-12 14:43:00 2017-01-12 14:43:00 Registered Clinic RYAN RASCON [facility] [id number] [facility] Results Test Description Test Time Test Comments Results Result Comments Source Sodium Level 2019-05-23 11:21:00 Test Item Sodium Level (test code = 2951-2) 136 136-145 [facility]assium Lvcpk1928-10-79 11:21:00* Test Item Value Reference Range Interpretation Comments Potassium Level (test code = 2823-3) 4.6 3.5-5.1 [facility]Chloride [id number] 11:21:00* Test Item Value Reference Range Interpretation Comments Chloride Level (test code = 2075-0) 101 98-107 [facility]Carbon Dioxide Bsveb4682-22-72 11:21:00* Test Item Value Reference Range Interpretation Comments Carbon Dioxide Level (test code = 2028-9) 26 22-29 [facility]Anion Tvm4588-72-93 11:21:00* Test Item Value Reference Range Interpretation Comments Anion Gap (test code = 90246-8) 13.6 8-16 [facility]Blood Urea Pdbotraa6573-85-05 11:21:00* Test Item Value Reference Range Interpretation Comments Blood Urea Nitrogen (test code = 3094-0) 39 7-26 [facility]Creatinine2020-02-21 11:21:00* Test Item Value Reference Range Interpretation Comments Creatinine (test code = 2160-0) 7.22 0.72-1.25 [facility]BUN/Creatinine Flooz3798-00-63 11:21:00* Test Item Value Reference Range Interpretation Comments BUN/Creatinine Ratio (test code = 3097-3) 5 6-25 [facility]landsEstimat Glomerular Filtration Rate 2019-05-23 11:21:00* Test Item Value Reference Range Interpretation Comments Estimat Glomerular Filtration Rate (test code = 396168405) 7 >60 Ranges were taken from the National Kidney Disease Education Program and the [facility] Kidney Foundation literature.Reference ranges:60 or greater: Dqajqj58-68 ( for 3 consecutive months): Chronic kidney disease 15 or less: Kidney failureTexas Children's Hospital The WoodlandsGlucose Vgcxd6912-04-83 11:21:00* Test Item Value Reference Range Interpretation Comments Glucose Level (test code = AQJ3139) 179 74-118 [facility]landsCalcium Mkswj6558-19-39 11:21:00* Test Item Value Reference Range Interpretation Comments Calcium Level (test code = 16894-1) 9.0 8.4-10.2 [facility]landsWhite Blood Wmkwm2420-62-07 10:47:00* Test Item Value Reference Range Interpretation Comments White Blood Count (test code = 6690-2) 8.00 4.8-10.8 [facility]landsRed Blood Gpfge1699-20-17 10:47:00* Test Item Value Reference Range Interpretation Comments Red Blood Count (test code = 789-8) 3.11 4.3-5.7 [facility]Hemoglobin2020-02-21 10:47:00* Test Item Value Reference Range Interpretation Comments Hemoglobin (test code = 71935-6) 8.8 14.0-18.0 [facility]Hematocrit2020-02-21 10:47:00* Test Item Value Reference Range Interpretation Comments Hematocrit (test code = 4544-3) 29.2 38.2-49.6 [facility]landsMean Corpuscular Hoomyp7776-65-34 10:47:00* Test Item Value Reference Range Interpretation Comments Mean Corpuscular Volume (test code = 787-2) 93.9 81-99 [facility]landsMean Corpuscular Pgrwptumpe6690-45-26 10:47:00* Test Item Value Reference Range Interpretation Comments Mean Corpuscular Hemoglobin (test code = 785-6) 28.3 28-32 [facility]landsMean Corpuscular Hemoglobin Concent 2019-05-23 10:47:00* Test Item Value Reference Range Interpretation Comments Mean Corpuscular Hemoglobin Concent (test code = 786-4) 30.1 31-35 [facility]landsRed Cell Distribution Iwxex6299-15-53 10:47:00* Test Item Value Reference Range Interpretation Comments Red Cell Distribution Width (test code = 66175-1) 15.9 11.7 -14.4 [facility]landsPlatelet Zcrtf5384-18-36 10:47:00* Test Item Value Reference Range Interpretation Comments Platelet Count (test code = 777-3) 134 140-360 [facility]landsNeutrophils (%) (Auto)2019-05-23 10:47:00 * Test Item Value Reference Range Interpretation Comments Neutrophils (%) (Auto) (test code = 67920-3) 71.0 38.7-80.0 [facility]landsLymphocytes (%) (Auto)2019-05-23 10:47:00 * Test Item Value Reference Range Interpretation Comments Lymphocytes (%) (Auto) (test code = 736-9) 12.3 18.0-39.1 [facility]landsMonocytes (%) (Auto)2019-05-23 10:47:00* Test Item Value Reference Range Interpretation Comments Monocytes (%) (Auto) (test code = 5905-5) 10.6 4.4-11.3 [facility]landsEosinophils (%) (Auto)2019-05-23 10:47:00 * Test Item Value Reference Range Interpretation Comments Eosinophils (%) (Auto) (test code = 713-8) 4.8 0.0-6.0 [facility]Basophils (%) (Auto)2019-05-23 10:47:00* Test Item Value Reference Range Interpretation Comments Basophils (%) (Auto) (test code = 706-2) 0.8 0.0-1.0 [facility]landsIM GRANULOCYTES %2019-05-23 10:47:00* Test Item Value Reference Range Interpretation Comments IM GRANULOCYTES % (test code = IM GRANULOCYTES %) 0.5 0.0- 1.0 [facility]landsNeutrophils # (Auto)2019-05-23 10:47:00* Test Item Value Reference Range Interpretation Comments Neutrophils # (Auto) (test code = 751-8) 5.7 2.1-6.9 [facility]landsLymphocytes # (Auto)2019-05-23 10:47:00* Test Item Value Reference Range Interpretation Comments Lymphocytes # (Auto) (test code = 77284-7) 1.0 1.0-3.2 [facility]landsMonocytes # (Auto)2019-05-23 10:47:00* Test Item Value Reference Range Interpretation Comments Monocytes # (Auto) (test code = 742-7) 0.9 0.2-0.8 [facility]landsEosinophils # (Auto)2019-05-23 10:47:00* Test Item Value Reference Range Interpretation Comments Eosinophils # (Auto) (test code = 711-2) 0.4 0.0-0.4 [facility]Basophils # (Auto)2019-05-23 10:47:00* Test Item Value Reference Range Interpretation Comments Basophils # (Auto) (test code = 704-7) 0.1 0.0-0.1 [facility]landsAbsolute Immature Granulocyte (auto 2019-05-23 10:47:00* Test Item Value Reference Range Interpretation Comments Absolute Immature Granulocyte (auto (surya t code = Absolute Immature Granulocyte (auto) 0.04 0-0.1 [facility]landsBedside Lxshush8374-64-57 08:28:00* Test Item Value Reference Range Interpretation Comments Bedside Glucose (test code = 55673-5) 158 70-120 Meter ID: [id number] [facility]Prothrombin Time 2019-05-20 17:31:00* Test Item Value Reference Range Interpretation Comments Prothrombin Time (test code = 5902-2) 19.1 11.9-14.5 [facility]landsProthromb Time International Ratio 2019-05-20 17:31:00* Test Item Value Reference Range Interpretation Comments Prothromb Time International Ratio (test code = 6301-6) 1.50 Oral Anticoagulant Therapy INR Values:1. Low Intensity Therapy 1.5 - 2.02 . Moderate Intensity Therapy 2.0 - 3.03. High Intensity Therapy(1) 2.5 - 3. 54. High Intensity Therapy(2) 3.0 - 4.05. Panic Value INR > 5.0 [facility] Yitewqtoc0300-83-09 16:07:00* Test Item Value Reference Range Interpretation Comments Total Bilirubin (test code = 1975-2) 0.4 0.2-1.2 [facility]landsAspartate Amino Transf (AST/SGOT) 2019-05-16 16:07:00* Test Item Value Reference Range Interpretation Comments Aspartate Amino Transf (AST/SGOT) (test code = Aspartate Amino Transf (AST/SGOT)) 9 5-34 [facility]landsAlanine Aminotransferase (ALT/SGPT) 2019-05-16 16:07:00* Test Item Value Reference Range Interpretation Comments Alanine Aminotransferase (ALT/SGPT) (test code = 1742-6) 7 0-55 [facility]landsTotal Lrsbgbg0090-96-94 16:07:00* Test Item Value Reference Range Interpretation Comments Total Protein (test code = 2885-2) 6.6 6.5-8.1 [facility]landsAlbumin2020-02-14 16:07:00* Test Item Value Reference Range Interpretation Comments Albumin (test code = 1751-7) 3.2 3.5-5.0 [facility]landsGlobulin2020-02-14 16:07:00* Test Item Value Reference Range Interpretation Comments Globulin (test code = 45218-6) 3.4 2.3-3.5 [facility]landsAlbumin/Globulin Ehedq6826-86-23 16:07:00 * Test Item Value Reference Range Interpretation Comments Albumin/Globulin Ratio (test code = 1759-0) 0.9 0.8-2.0 [facility]landsAlkaline Mioeoebypyz5745-50-71 16:07:00* Test Item Value Reference Range Interpretation Comments Alkaline Phosphatase (test code = 6768-6) 73 40-150 [facility]landsHepatitis B Surface Antibody, Quant 2019-05-15 21:48:00* Test Item Value Reference Range Interpretation Comments Hepatitis B Surface Antibody, Quant (test code = 5194-6) 82.9 Immunity>9.9 Status of Immunity Anti-HBs Level Inconsistent with Immunity 0.0 - 9.9Consistent with Immunity >9.9CHeart [facility]Hepatitis B Surface Cnsccla3357-57-94 21:48:00* Test Item Value Reference Range Interpretation Comments Hepatitis B Surface Antigen (test code = 5196-1) Negative Negat terrell Performed at: - [facility] [id number] Director: Yadiel Yancey MD, Phone: [phone] Children's Hospital The WoodlandsFOOT COMPLETE KBXRIYFWJ4920-00-12 19:50:00 [place] [address] Patient Name: ARY ALEJO MR #: [id number] : 1935 Age/Sex: 83/M Req #: [id number] Adm Physician: WELLINGTON PACE MD Ordered by: WAQAR ROLLE DPMajor Report #: [id number] Location: MED/SURG2 Room/Bed: [facility] Procedure: [id number] DX /FOOT COMPLETE BILATERAL Exam Date: 05/14/19 Exam Ti me: 1910 REPORT STATUS: Signed B ilateral foot 3 - views HISTORY: Pain. Evaluate access osteomyelitis. COMPARISON: Right foot x-ray series dated 04/17/2019. FINDINGS: No d isplaced fracture. Status post ORIF of left distal fibular fracture with lucila te and screw construct not completely visualized. Degenerative changes of the tarsometatarsal joints bilaterally right greater than left. Bilateral small pl rekha calcaneal enthesophyte and Achilles enthesopathy. Extensive vascular c alcifications. There is a 1.3 cm linear metallic density in the plantar soft t issues of the right forefoot between the proximal first and second phalanges c onsistent with a foreign body (appearance of a needle). IMPRESSION: 1. Redemonstration of a 1.3 cm linear metallic density in the plantar soft ti ssues of the right forefoot between the proximal first and second phalanges co nsistent with a foreign body (appearance of a needle). 2. No significant er osive changes suggestive of osteomyelitis; if clinical concern for abscess and /or osteomyelitis remains, consider further evaluation with CT examination wit h contrast. Signed by: Dr. Christina Foreman M.D. on 05/14/2019 7:54 PM Dictated By: MELISSA FOREMAN MD, MD 53 Transcribed By: SALVADOR on 05/14/191953 REGULATORY AFFAIRS CONSULTANT Y TO: WAQAR ROLLE DPM C-Reactive [id number] 17:22:00* Test Item Value Reference Range Interpretation Comments C-Reactive Protein (test code = 1988-5) 120 0-10 Performed at: - [facility] [address] [id number] Director: Yadiel Yancey MD, Phone: [phone] WoodlandsErythrocyte Sedimentation [id number] 18:50:00* Test Item Value Reference Range Interpretation Comments Erythrocyte Sedimentation Rate (test code = 4537-7) 81 0- 13 [facility] [id number] 14:48:00* Test Item Value Reference Range Interpretation Comments Blood Culture (test code = 81456493) NO GROWTH AFTER 5 DAYS, FINAL REPORT [facility]landsLactic Acid [id number] 15:00:00* Test Item Value Reference Range Interpretation Comments Lactic Acid Level (test code = Lactic Acid Level) 0.7 0.5- 2.0 [facility]landsFO[facility] RIGHT [id number] 14:48:00 [facility] [address] [address] Patient Name: ARY ALEJO MR #: [id number] : 1935 Age/Sex: 83/M Req #: [id number] Adm Physician: WELLINGTON PACE MD Ordered by: WILFRIDO KRUSE MUSIC CRITIC Report #: [id number] Location: [facility] Room/Bed: [place] [address] Procedure: [id number] DX /FOOT RIGHT COMPLETE Exam Date: Exam Time: REPORT STATUS: Signed Right foot, 3 views. History: Foot infection. Findings: There is plantar soft tis bridgette swelling distally with a radiopaque needle between the first and second to es. There is no subcutaneous air and no evidence of adjacent osseous erosion o r periosteal reaction. There is diffuse vessel calcification. Bone mineralizat ion is normal. There is no evidence of acute fracture or dislocation. Diffuse degenerative changes are present. IMPRESSION: Retained foreign body in the plantar soft tissues between the first and second toes with soft tissue s welling. Signed by: Wilfrido Gee on 04/17/2019 2:54 PM Dictat ed By: WILFRIDO GEE MD 53 Transcribed By: SALVADOR on 04/17/191453 COPY TO: WILFRIDO KRUSE NP ANG, AV-SHUNT, CATH INTRO WITH [id number] 05:41:00Reason for exam:->AV Fistulogram - fistula malfunctionFINAL REPORT Right upper extremity AV fistulogram, 03/07/2019. History: AV fistula malfunction. Modality: Fluoroscopy Sedation: None Anesthesia: Two percent Lidocaine without epinephrine. Approach: Left upper extremity AV fistula Estimated blood loss: < 5 cc. Specimen: None. corrugator operator: Tim Ferro MD. Crop Setting Out Machine Operator: Mor. Fluoroscopy Time: 0.2 min.Reference Air Kerma (Ka, r): 32.3 mGy. Technique: [...] the right upper extremity fistula. Signed: Tim Ferro MDReport Verified Date/Time: 03/20/2019 05:41:14 Reading Location: [place] [address] Angio Body Reading Room -GLUCOSE [id number] 12:34:00* Test Item Value Reference Range Interpretation Comments POC-GLUCOSE METER (BEAKER) (test code = 1538) 150 mg/dL 70-110 H : TESTED AT [address], [address]: Emergency Department Rn/Intermediate Accountant ID = [id number] for THIAGO MAXWELL BASIC METABOLIC [id number] 08:22:00* Test Item Value Reference Range Interpretation Comments SODIUM (BEAKER) (test code = 381) 138 meq/L 136-145 POTASSIUM (BEAKER) (test code = 379) 3.7 meq/L 3.5-5.1 CHLORIDE (BEAKER) (test code = 382) 102 meq/L 98-107 CO2 (BEAKER) (test code = 355) 29 meq/L 22-29 BLOOD UREA NITROGEN (BEAKER) (test code = 354) 18 mg/dL 7-21 CREATININE (BEAKER) (test code = 358) 4.23 mg/dL 0.57-1.25 H GLUCOSE RANDOM (BEAKER) (test code = 652) 224 mg/dL 70-105 H CALCIUM (BEAKER) (test code = 697) 8.6 mg/dL 8.4-10.2 EGFR (BEAKER) (test code = 1092) 14 mL/min/1.73 sq m ESTIMATED GFR IS NOT ACCURATE CREATININE CLEARANCE IN PREDICTING GLOMERULAR FILTRATION RATE. ESTIMATED GFR IS NOT APPLICABLE FOR DIALYSIS PATIENTS. CBC W/PLT COUNT & AUTO [id number] 05:18:00* Test Item Value Reference Range Interpretation Comments WHITE BLOOD CELL COUNT (BEAKER) (test code = 775) 10.1 K/ L 3.5- 10.5 RED BLOOD CELL COUNT (BEAKER) (test code = 761) 2.89 M/ L 4.63-6 .08 L HEMOGLOBIN (BEAKER) (test code = 410) 8.5 GM/DL 13.7-17.5 L HEMATOCRIT (BEAKER) (test code = 411) 27.5 % 40.1-51.0 L MEAN CORPUSCULAR VOLUME (BEAKER) (test code = 753) 95.2 fL 79. 0-92.2 H MEAN CORPUSCULAR HEMOGLOBIN (BEAKER) (test code = 751) 29.4 pg 25.7-32.2 MEAN CORPUSCULAR HEMOGLOBIN CONC (BEAKER) (test code = 752) 30.9 GM/DL 32.3-36.5 L RED CELL DISTRIBUTION WIDTH (BEAKER) (test code = 412) 15.9 % 11.6-14.4 H PLATELET COUNT (BEAKER) (test code = 756) 192 K/CU MM 150-450 MEAN PLATELET VOLUME (BEAKER) (test code = 754) 9.5 fL 9.4-12 .4 NUCLEATED RED BLOOD CELLS (BEAKER) (test code = 413) 0 /100 WBC 0 -0 NEUTROPHILS RELATIVE PERCENT (BEAKER) (test code = 429) 72 % LYMPHOCYTES RELATIVE PERCENT (BEAKER) (test code = 430) 13 % MONOCYTES RELATIVE PERCENT (BEAKER) (test code = 431) 8 % EOSINOPHILS RELATIVE PERCENT (BEAKER) (test code = 432) 5 % BASOPHILS RELATIVE PERCENT (BEAKER) (test code = 437) 1 % NEUTROPHILS ABSOLUTE COUNT (BEAKER) (test code = 670) 7.22 K/ L 1.78-5.38 H LYMPHOCYTES ABSOLUTE COUNT (BEAKER) (test code = 414) 1.35 K/ L 1.32-3.57 MONOCYTES ABSOLUTE COUNT (BEAKER) (test code = 415) 0.83 K/ L 0. 30-0.82 H EOSINOPHILS ABSOLUTE COUNT (BEAKER) (test code = 416) 0.50 K/ L 0.04-0.54 BASOPHILS ABSOLUTE COUNT (BEAKER) (test code = 417) 0.06 K/ L 0. 01-0.08 IMMATURE GRANULOCYTES-RELATIVE PERCENT (BEAKER) (test code = 2801) 1 % 0-1 POCT-GLUCOSE [id number] 21:38:00* Test Item Value Reference Range Interpretation Comments POC-GLUCOSE METER (BEAKER) (test code = 1538) 192 mg/dL 70-110 H : TESTED AT [place] [id number] [facility], [address]: Emergency Department Rn/Intermediate Accountant ID = [id number] for SOLOMON BENITEZ POCT-GLUCOSE [id number] 17:16:00* Test Item Value Reference Range Interpretation Comments POC-GLUCOSE METER (BEAKER) (test code = 1538) 148 mg/dL 70-110 H : TESTED AT [place] [id number] [facility], [address]: Emergency Department Rn/Intermediate Accountant ID = [id number] for TERRI CLARKE PROTHROMBIN [id number] 14:22:00* Test Item Value Reference Range Interpretation Comments PROTIME (BEAKER) (test code = 759) 14.7 seconds 11.9-14.2 H INR (BEAKER) (test code = 370) 1.2 <=5.9 Effective 08/28/2018: PT Reference Range ChangeNew: 11.9-14.2 Previous: 11.7-14. 7RECOMMENDED COUMADIN/WARFARIN INR THERAPY RANGESSTANDARD DOSE: 2.0-3.0 Include s: PROPHYLAXIS for venous thrombosis, systemic embolization; TREATMENT for venou s thrombosis and/or pulmonary embolus.HIGH RISK: Target INR is 2.5-3.5 for patie nts wiht mechanical heart valves.POCT-GLUCOSE [id number] 11:57:00* Test Item Value Reference Range Interpretation Comments POC-GLUCOSE METER (BEAKER) (test code = 1538) 153 mg/dL 70-110 H : TESTED AT [address], [address]: Emergency Department Rn/Intermediate Accountant ID = [id number] for SUZIE VICENTE [id number] 10:07:00* Test Item Value Reference Range Interpretation Comments GLUBED (test code = GLUBED) 161 mg/dL 74-106 H Performed by certified cream separator operator at [facility] [id number] 10:07:00* Test Item Value Reference Range Interpretation Comments GLUBED (test code = GLUBED) 160 mg/dL 74-106 H Performed by certified cream separator operator at [facility] POCT-GLUCOSE [id number] 08:26:00* Test Item Value Reference Range Interpretation Comments POC-GLUCOSE METER (BEAKER) (test code = 1538) 256 mg/dL 70-110 H : TESTED AT [address], [address]: Emergency Department Rn/Intermediate Accountant ID = [id number] for SUZIE VICENTE CBC W/PLT COUNT & AUTO [id number] 04:24:00* Test Item Value Reference Range Interpretation Comments WHITE BLOOD CELL COUNT (BEAKER) (test code = 775) 9.1 K/ L 3.5- 10.5 RED BLOOD CELL COUNT (BEAKER) (test code = 761) 2.98 M/ L 4.63-6 .08 L HEMOGLOBIN (BEAKER) (test code = 410) 8.7 GM/DL 13.7-17.5 L HEMATOCRIT (BEAKER) (test code = 411) 28.8 % 40.1-51.0 L MEAN CORPUSCULAR VOLUME (BEAKER) (test code = 753) 96.6 fL 79. 0-92.2 H MEAN CORPUSCULAR HEMOGLOBIN (BEAKER) (test code = 751) 29.2 pg 25.7-32.2 MEAN CORPUSCULAR HEMOGLOBIN CONC (BEAKER) (test code = 752) 30.2 GM/DL 32.3-36.5 L RED CELL DISTRIBUTION WIDTH (BEAKER) (test code = 412) 15.8 % 11.6-14.4 H PLATELET COUNT (BEAKER) (test code = 756) 181 K/CU MM 150-450 MEAN PLATELET VOLUME (BEAKER) (test code = 754) 9.3 fL 9.4-12 .4 L NUCLEATED RED BLOOD CELLS (BEAKER) (test code = 413) 0 /100 WBC 0 -0 NEUTROPHILS RELATIVE PERCENT (BEAKER) (test code = 429) 73 % LYMPHOCYTES RELATIVE PERCENT (BEAKER) (test code = 430) 13 % MONOCYTES RELATIVE PERCENT (BEAKER) (test code = 431) 9 % EOSINOPHILS RELATIVE PERCENT (BEAKER) (test code = 432) 4 % BASOPHILS RELATIVE PERCENT (BEAKER) (test code = 437) 1 % NEUTROPHILS ABSOLUTE COUNT (BEAKER) (test code = 670) 6.63 K/ L 1.78-5.38 H LYMPHOCYTES ABSOLUTE COUNT (BEAKER) (test code = 414) 1.14 K/ L 1.32-3.57 L MONOCYTES ABSOLUTE COUNT (BEAKER) (test code = 415) 0.78 K/ L 0. 30-0.82 EOSINOPHILS ABSOLUTE COUNT (BEAKER) (test code = 416) 0.40 K/ L 0.04-0.54 BASOPHILS ABSOLUTE COUNT (BEAKER) (test code = 417) 0.05 K/ L 0. 01-0.08 IMMATURE GRANULOCYTES-RELATIVE PERCENT (BEAKER) (test code = 2801) 1 % 0-1 POCT-GLUCOSE [id number] 21:12:00* Test Item Value Reference Range Interpretation Comments POC-GLUCOSE METER (BEAKER) (test code = 1538) 199 mg/dL 70-110 H : TESTED AT [facility] [address] [facility], [address]: Emergency Department Rn/Intermediate Accountant ID = [id number] for BOBBI SMITH POCT-GLUCOSE [id number] 17:20:00* Test Item Value Reference Range Interpretation Comments POC-GLUCOSE METER (BEAKER) (test code = 1538) 183 mg/dL 70-110 H : TESTED AT [facility] [address] [facility], [address]: Emergency Department Rn/Intermediate Accountant ID = [id number] for SUZIE VICENTE SPUTUM CULTURE + GRAM [id number] 11:05:00* Test Item Value Reference Range Interpretation Comments CULTURE (BEAKER) (test code = 1095) METHICILLIN RESISTANT ST APHYLOCOCCUS AUREUS A 2+ Methicillin resistant Sta phylococcus aureus Clindamycin (test code = 10) R Erythromycin (test code = 4) R Linezolid (test code = 40) S Nitrofurantoin (test code = 23) S Oxacillin (test code = 14) R Rifampin (test code = 43) S Tetracycline (test code = 2) S Trimethoprim + Sulfamethoxazole (test code = 47) S Vancomycin (test code = 13) S GRAM STAIN RESULT (BEAKER) (test code = 1123) <1+ White blood cells seen GRAM STAIN RESULT (BEAKER) (test code = 370146) 0-5 epithelial cell s GRAM STAIN RESULT (BEAKER) (test code = 332060) 2+ gram posi tive cocci in pairs 4+ Normal respiratory erick presentPOCT-GLUCOSE [id number] 07:45:00* Test Item Value Reference Range Interpretation Comments POC-GLUCOSE METER (BEAKER) (test code = 1538) 205 mg/dL 70-110 H : TESTED AT [place] [id number] [facility], [address]: Emergency Department Rn/Intermediate Accountant ID = [id number] for SUZIE VICENTE CBC W/PLT COUNT & AUTO [id number] 04:59:00* Test Item Value Reference Range Interpretation Comments WHITE BLOOD CELL COUNT (BEAKER) (test code = 775) 10.1 K/ L 3.5- 10.5 RED BLOOD CELL COUNT (BEAKER) (test code = 761) 2.92 M/ L 4.63-6 .08 L HEMOGLOBIN (BEAKER) (test code = 410) 8.5 GM/DL 13.7-17.5 L HEMATOCRIT (BEAKER) (test code = 411) 28.1 % 40.1-51.0 L MEAN CORPUSCULAR VOLUME (BEAKER) (test code = 753) 96.2 fL 79. 0-92.2 H MEAN CORPUSCULAR HEMOGLOBIN (BEAKER) (test code = 751) 29.1 pg 25.7-32.2 MEAN CORPUSCULAR HEMOGLOBIN CONC (BEAKER) (test code = 752) 30.2 GM/DL 32.3-36.5 L RED CELL DISTRIBUTION WIDTH (BEAKER) (test code = 412) 15.8 % 11.6-14.4 H PLATELET COUNT (BEAKER) (test code = 756) 194 K/CU MM 150-450 MEAN PLATELET VOLUME (BEAKER) (test code = 754) 9.9 fL 9.4-12 .4 NUCLEATED RED BLOOD CELLS (BEAKER) (test code = 413) 0 /100 WBC 0 -0 NEUTROPHILS RELATIVE PERCENT (BEAKER) (test code = 429) 69 % LYMPHOCYTES RELATIVE PERCENT (BEAKER) (test code = 430) 16 % MONOCYTES RELATIVE PERCENT (BEAKER) (test code = 431) 9 % EOSINOPHILS RELATIVE PERCENT (BEAKER) (test code = 432) 4 % BASOPHILS RELATIVE PERCENT (BEAKER) (test code = 437) 1 % NEUTROPHILS ABSOLUTE COUNT (BEAKER) (test code = 670) 6.99 K/ L 1.78-5.38 H LYMPHOCYTES ABSOLUTE COUNT (BEAKER) (test code = 414) 1.57 K/ L 1.32-3.57 MONOCYTES ABSOLUTE COUNT (BEAKER) (test code = 415) 0.92 K/ L 0. 30-0.82 H EOSINOPHILS ABSOLUTE COUNT (BEAKER) (test code = 416) 0.43 K/ L 0.04-0.54 BASOPHILS ABSOLUTE COUNT (BEAKER) (test code = 417) 0.05 K/ L 0. 01-0.08 IMMATURE GRANULOCYTES-RELATIVE PERCENT (BEAKER) (test code = 2801) 1 % 0-1 POCT-GLUCOSE [id number] 21:32:00* Test Item Value Reference Range Interpretation Comments POC-GLUCOSE METER (BEAKER) (test code = 1538) 229 mg/dL 70-110 H : TESTED AT [facility] [address] [facility], [address]: Emergency Department Rn/Intermediate Accountant ID = [id number] for BOBBI SMITH POCT-GLUCOSE [id number] 17:38:00* Test Item Value Reference Range Interpretation Comments POC-GLUCOSE METER (BEAKER) (test code = 1538) 252 mg/dL 70-110 H : TESTED AT [facility] [address] [facility], [address]: Emergency Department Rn/Intermediate Accountant ID = [id number] for ISAURO DAHL POCT-GLUCOSE [id number] 11:39:00* Test Item Value Reference Range Interpretation Comments POC-GLUCOSE METER (BEAKER) (test code = 1538) 322 mg/dL 70-110 H : Notified RN/MD: TESTED AT [address], [address]: Emergency Department Rn/Intermediate Accountant ID = [id number] for Brown Navarro RAD, CHEST, 2 [id number] 09:36:00Reason for exam:->coughShould this be performed at the bedside?->YesFINAL REPORT CHEST, AP AND LATERAL. HISTORY: Cough. COMPARISON: 03/15/2019. Impression: Right IJ tunneled dialysis catheter identified in stable position. Electronic stimulator device with leads extending cephalad out of the vzarm-rg-bjud again noted. The trachea is midline. There are bibasilar opacity suggestive of atelectasis. There is no evidence for large focal consolidation, pneumothorax, or significant pleural effusion. The cardiomediastinal silhouette is stable in appearance. No acute osseous abnormality is identified. Signed: Mitchel Gar Verified Date/Time: 03/16/2019 09:36:48 Reading Location: [address] Body Reading Room -GLUCOSE [id number] 08:05:00* Test Item Value Reference Range Interpretation Comments POC-GLUCOSE METER (BEAKER) (test code = 1538) 191 mg/dL 70-110 H : TESTED AT [place] [id number] [facility], [address]: Emergency Department Rn/Intermediate Accountant ID = [id number] for ISAURO DAHL BASIC METABOLIC [id number] 05:49:00* Test Item Value Reference Range Interpretation Comments SODIUM (BEAKER) (test code = 381) 135 meq/L 136-145 L POTASSIUM (BEAKER) (test code = 379) 4.7 meq/L 3.5-5.1 CHLORIDE (BEAKER) (test code = 382) 100 meq/L 98-107 CO2 (BEAKER) (test code = 355) 27 meq/L 22-29 BLOOD UREA NITROGEN (BEAKER) (test code = 354) 25 mg/dL 7-21 H CREATININE (BEAKER) (test code = 358) 5.47 mg/dL 0.57-1.25 H GLUCOSE RANDOM (BEAKER) (test code = 652) 178 mg/dL 70-105 H CALCIUM (BEAKER) (test code = 697) 8.4 mg/dL 8.4-10.2 EGFR (BEAKER) (test code = 1092) 10 mL/min/1.73 sq m ESTIMATED GFR IS NOT ACCURATE CREATININE CLEARANCE IN PREDICTING GLOMERULAR FILTRATION RATE. ESTIMATED GFR IS NOT APPLICABLE FOR DIALYSIS PATIENTS. CALCIUM, [id number] 05:43:00* Test Item Value Reference Range Interpretation Comments CALCIUM IONIZED (BEAKER) (test code = 698) 1.05 mmol/L 1.12-1.27 L PH, BLOOD (BEAKER) (test code = 1810) 7.44 [id number] 05:43:00* Test Item Value Reference Range Interpretation Comments PHOSPHORUS (BEAKER) (test code = 604) 2.6 mg/dL 2.3-4.7 [id number] 05:43:00* Test Item Value Reference Range Interpretation Comments MAGNESIUM (BEAKER) (test code = 627) 1.8 mg/dL 1.6-2.6 PROTHROMBIN [id number] 05:37:00* Test Item Value Reference Range Interpretation Comments PROTIME (BEAKER) (test code = 759) 15.9 seconds 11.9-14.2 H INR (BEAKER) (test code = 370) 1.3 <=5.9 Effective 08/28/2018: PT Reference Range ChangeNew: 11.9-14.2 Previous: 11.7-14. 7RECOMMENDED COUMADIN/WARFARIN INR THERAPY RANGESSTANDARD DOSE: 2.0-3.0 Include s: PROPHYLAXIS for venous thrombosis, systemic embolization; TREATMENT for venou s thrombosis and/or pulmonary embolus.HIGH RISK: Target INR is 2.5-3.5 for patie nts wiht mechanical heart valves.CBC W/PLT COUNT & AUTO [id number] 05:33:00* Test Item Value Reference Range Interpretation Comments WHITE BLOOD CELL COUNT (BEAKER) (test code = 775) 12.3 K/ L 3.5- 10.5 H RED BLOOD CELL COUNT (BEAKER) (test code = 761) 3.01 M/ L 4.63-6 .08 L HEMOGLOBIN (BEAKER) (test code = 410) 8.8 GM/DL 13.7-17.5 L HEMATOCRIT (BEAKER) (test code = 411) 28.8 % 40.1-51.0 L MEAN CORPUSCULAR VOLUME (BEAKER) (test code = 753) 95.7 fL 79. 0-92.2 H MEAN CORPUSCULAR HEMOGLOBIN (BEAKER) (test code = 751) 29.2 pg 25.7-32.2 MEAN CORPUSCULAR HEMOGLOBIN CONC (BEAKER) (test code = 752) 30.6 GM/DL 32.3-36.5 L RED CELL DISTRIBUTION WIDTH (BEAKER) (test code = 412) 15.8 % 11.6-14.4 H PLATELET COUNT (BEAKER) (test code = 756) 195 K/CU MM 150-450 MEAN PLATELET VOLUME (BEAKER) (test code = 754) 9.6 fL 9.4-12 .4 NUCLEATED RED BLOOD CELLS (BEAKER) (test code = 413) 0 /100 WBC 0 -0 NEUTROPHILS RELATIVE PERCENT (BEAKER) (test code = 429) 71 % LYMPHOCYTES RELATIVE PERCENT (BEAKER) (test code = 430) 16 % MONOCYTES RELATIVE PERCENT (BEAKER) (test code = 431) 8 % EOSINOPHILS RELATIVE PERCENT (BEAKER) (test code = 432) 4 % BASOPHILS RELATIVE PERCENT (BEAKER) (test code = 437) 1 % NEUTROPHILS ABSOLUTE COUNT (BEAKER) (test code = 670) 8.72 K/ L 1.78-5.38 H LYMPHOCYTES ABSOLUTE COUNT (BEAKER) (test code = 414) 1.91 K/ L 1.32-3.57 MONOCYTES ABSOLUTE COUNT (BEAKER) (test code = 415) 1.02 K/ L 0. 30-0.82 H EOSINOPHILS ABSOLUTE COUNT (BEAKER) (test code = 416) 0.45 K/ L 0.04-0.54 BASOPHILS ABSOLUTE COUNT (BEAKER) (test code = 417) 0.06 K/ L 0. 01-0.08 IMMATURE GRANULOCYTES-RELATIVE PERCENT (BEAKER) (test code = 2801) 1 % 0-1 RAD, CHEST, 1 VIEW, NON [id number] 05:33:00Reason for exam:->coughShould this be performed at the bedside?->YesFINAL REPORT RAD, CHEST, 1 VIEW, NON DEPT INDICATION: cough COMPARISON: July 23, 2017 FINDINGS: Portable frontal view of the chest. IMPRESSION: Support Lines: Right chest electronic device with leads extending cephalad above the field of view is stable in appearance. Right paraspinal catheter suggestive of dialysis catheter is obscured but tip projects at the level of the distal SVC.Lungs and pleura: No focal lung consolidation or significant pleural effusion. No pneumothorax. Stable mild coarsening of the perihilar interstitial markings.Heart and mediastinum: Enlarged cardiomediastinal silhouette is magnified by technique but suggestive of cardiomegaly. Additional findings: None. Signed: Will Desouza MDReport Verified Date/Time: 03/16/2019 05:33:32 -GLUCOSE [id number] 21:26:00* Test Item Value Reference Range Interpretation Comments POC-GLUCOSE METER (BEAKER) (test code = 1538) 101 mg/dL 70-110 : TESTED AT [facility] [address] [facility], [address]: Emergency Department Rn/Intermediate Accountant ID = [id number] for BRIELLE AGUILAR POCT-GLUCOSE [id number] 20:25:00* Test Item Value Reference Range Interpretation Comments POC-GLUCOSE METER (BEAKER) (test code = 1538) 58 mg/dL 70-110 L : TESTED AT [facility] [address] [facility], [address]: Emergency Department Rn/Intermediate Accountant ID = [id number] for THIAGO MAXWELL POCT-GLUCOSE [id number] 20:25:00* Test Item Value Reference Range Interpretation Comments POC-GLUCOSE METER (BEAKER) (test code = 1538) 46 mg/dL 70-110 L : TESTED AT [facility] [address] [facility], [address]: Emergency Department Rn/Intermediate Accountant ID = [id number] for TERRI CLARKE POCT-GLUCOSE [id number] 20:24:00* Test Item Value Reference Range Interpretation Comments POC-GLUCOSE METER (BEAKER) (test code = 1538) 33 mg/dL 70-110 LL : Will Repeat Test: Notified RN/MD: TESTED AT [address], [address]: Emergency Department Rn/Intermediate Accountant ID = [id number] for TERRI CLARKE POCT-GLUCOSE [id number] 20:24:00* Test Item Value Reference Range Interpretation Comments POC-GLUCOSE METER (BEAKER) (test code = 1538) 56 mg/dL 70-110 L : TESTED AT [address], [address]: Emergency Department Rn/Intermediate Accountant ID = [id number] for ESTER CASTILLO POCT-GLUCOSE [id number] 17:40:00* Test Item Value Reference Range Interpretation Comments POC-GLUCOSE METER (BEAKER) (test code = 1538) 37 mg/dL 70-110 LL : Will Repeat Test: Notified RN/MD: TESTED AT [address], [address]: Emergency Department Rn/Intermediate Accountant ID = [id number] for TERRI CLARKE POCT-GLUCOSE [id number] 17:27:00* Test Item Value Reference Range Interpretation Comments POC-GLUCOSE METER (BEAKER) (test code = 1538) 129 mg/dL 70-110 H : TESTED AT [address], [address]: Emergency Department Rn/Intermediate Accountant ID = [id number] for TERRI CLARKE POCT-GLUCOSE [id number] 17:22:00* Test Item Value Reference Range Interpretation Comments POC-GLUCOSE METER (BEAKER) (test code = 1538) 35 mg/dL 70-110 LL : Will Repeat Test: Notified RN/MD: TESTED AT [address], [address]: Emergency Department Rn/Intermediate Accountant ID = [id number] for TERRI CLARKE HEMOGLOBIN [id number] 08:10:00* Test Item Value Reference Range Interpretation Comments HEMOGLOBIN A1C (BEAKER) (test code = 368) 7.8 % 4.3-6.1 H POCT-GLUCOSE [id number] 08:08:00* Test Item Value Reference Range Interpretation Comments POC-GLUCOSE METER (BEAKER) (test code = 1538) 233 mg/dL 70-110 H : TESTED AT [facility] [address] [place], [address]: Emergency Department Rn/Intermediate Accountant ID = [id number] for TERRI CLARKE BASIC METABOLIC [id number] 06:10:00* Test Item Value Reference Range Interpretation Comments SODIUM (BEAKER) (test code = 381) 139 meq/L 136-145 POTASSIUM (BEAKER) (test code = 379) 4.2 meq/L 3.5-5.1 CHLORIDE (BEAKER) (test code = 382) 101 meq/L 98-107 CO2 (BEAKER) (test code = 355) 29 meq/L 22-29 BLOOD UREA NITROGEN (BEAKER) (test code = 354) 14 mg/dL 7-21 CREATININE (BEAKER) (test code = 358) 4.08 mg/dL 0.57-1.25 H GLUCOSE RANDOM (BEAKER) (test code = 652) 246 mg/dL 70-105 H CALCIUM (BEAKER) (test code = 697) 8.5 mg/dL 8.4-10.2 EGFR (BEAKER) (test code = 1092) 14 mL/min/1.73 sq m ESTIMATED GFR IS NOT ACCURATE CREATININE CLEARANCE IN PREDICTING GLOMERULAR FILTRATION RATE. ESTIMATED GFR IS NOT APPLICABLE FOR DIALYSIS PATIENTS. HEPATITIS B SURFACE [id number] 06:09:00* Test Item Value Reference Range Interpretation Comments HEPATITIS B SURFACE ANTIGEN (2) (BEAKER) (test code = 2585) Nonreactive Nonreactive [id number] 06:08:00* Test Item Value Reference Range Interpretation Comments PHOSPHORUS (BEAKER) (test code = 604) 2.9 mg/dL 2.3-4.7 [id number] 06:08:00* Test Item Value Reference Range Interpretation Comments MAGNESIUM (BEAKER) (test code = 627) 1.8 mg/dL 1.6-2.6 PROTHROMBIN [id number] 05:43:00* Test Item Value Reference Range Interpretation Comments PROTIME (BEAKER) (test code = 759) 17.8 seconds 11.9-14.2 H INR (BEAKER) (test code = 370) 1.6 <=5.9 Effective 08/28/2018: PT Reference Range ChangeNew: 11.9-14.2 Previous: 11.7-14. 7RECOMMENDED COUMADIN/WARFARIN INR THERAPY RANGESSTANDARD DOSE: 2.0-3.0 Include s: PROPHYLAXIS for venous thrombosis, systemic embolization; TREATMENT for venou s thrombosis and/or pulmonary embolus.HIGH RISK: Target INR is 2.5-3.5 for patie nts wiht mechanical heart valves.CBC W/PLT COUNT & AUTO [id number] 05:40:00* Test Item Value Reference Range Interpretation Comments WHITE BLOOD CELL COUNT (BEAKER) (test code = 775) 9.9 K/ L 3.5- 10.5 RED BLOOD CELL COUNT (BEAKER) (test code = 761) 3.31 M/ L 4.63-6 .08 L HEMOGLOBIN (BEAKER) (test code = 410) 9.5 GM/DL 13.7-17.5 L HEMATOCRIT (BEAKER) (test code = 411) 31.8 % 40.1-51.0 L MEAN CORPUSCULAR VOLUME (BEAKER) (test code = 753) 96.1 fL 79. 0-92.2 H MEAN CORPUSCULAR HEMOGLOBIN (BEAKER) (test code = 751) 28.7 pg 25.7-32.2 MEAN CORPUSCULAR HEMOGLOBIN CONC (BEAKER) (test code = 752) 29.9 GM/DL 32.3-36.5 L RED CELL DISTRIBUTION WIDTH (BEAKER) (test code = 412) 15.9 % 11.6-14.4 H PLATELET COUNT (BEAKER) (test code = 756) 205 K/CU MM 150-450 MEAN PLATELET VOLUME (BEAKER) (test code = 754) 9.2 fL 9.4-12 .4 L NUCLEATED RED BLOOD CELLS (BEAKER) (test code = 413) 0 /100 WBC 0 -0 NEUTROPHILS RELATIVE PERCENT (BEAKER) (test code = 429) 72 % LYMPHOCYTES RELATIVE PERCENT (BEAKER) (test code = 430) 14 % MONOCYTES RELATIVE PERCENT (BEAKER) (test code = 431) 9 % EOSINOPHILS RELATIVE PERCENT (BEAKER) (test code = 432) 3 % BASOPHILS RELATIVE PERCENT (BEAKER) (test code = 437) 1 % NEUTROPHILS ABSOLUTE COUNT (BEAKER) (test code = 670) 7.16 K/ L 1.78-5.38 H LYMPHOCYTES ABSOLUTE COUNT (BEAKER) (test code = 414) 1.41 K/ L 1.32-3.57 MONOCYTES ABSOLUTE COUNT (BEAKER) (test code = 415) 0.85 K/ L 0. 30-0.82 H EOSINOPHILS ABSOLUTE COUNT (BEAKER) (test code = 416) 0.33 K/ L 0.04-0.54 BASOPHILS ABSOLUTE COUNT (BEAKER) (test code = 417) 0.06 K/ L 0. 01-0.08 IMMATURE GRANULOCYTES-RELATIVE PERCENT (BEAKER) (test code = 2801) 1 % 0-1 CALCIUM, [id number] 05:35:00* Test Item Value Reference Range Interpretation Comments CALCIUM IONIZED (BEAKER) (test code = 698) 1.08 mmol/L 1.12-1.27 L PH, BLOOD (BEAKER) (test code = 1810) 7.39 POCT-GLUCOSE [id number] 00:09:00* Test Item Value Reference Range Interpretation Comments POC-GLUCOSE METER (BEAKER) (test code = 1538) 145 mg/dL 70-110 H : TESTED AT [address], [address]: Emergency Department Rn/Intermediate Accountant ID = [id number] for JEFF BRIELLE POCT-GLUCOSE [id number] 21:10:00* Test Item Value Reference Range Interpretation Comments POC-GLUCOSE METER (BEAKER) (test code = 1538) 74 mg/dL 70-110 : TESTED AT [address], [address]: Emergency Department Rn/Intermediate Accountant ID = [id number] for TRIANA, TERRI POCT-GLUCOSE [id number] 20:07:00* Test Item Value Reference Range Interpretation Comments POC-GLUCOSE METER (BEAKER) (test code = 1538) 77 mg/dL 70-110 : TESTED AT [address], [address]: Emergency Department Rn/Intermediate Accountant ID = [id number] for TRIANA, TERRI POCT-GLUCOSE [id number] 17:45:00* Test Item Value Reference Range Interpretation Comments POC-GLUCOSE METER (BEAKER) (test code = 1538) 92 mg/dL 70-110 : TESTED AT [address], [address]: Emergency Department Rn/Intermediate Accountant ID = [id number] for JASON TOURE HEPATITIS B SURFACE [id number] 14:10:00* Test Item Value Reference Range Interpretation Comments HEPATITIS B SURFACE ANTIBODY (BEAKER) (test code = 647) 67.5 mIU/mL <8.0 H HEPATITIS B CORE ANTIBODY, [id number] 14:10:00* Test Item Value Reference Range Interpretation Comments HEPATITIS B CORE TOTAL ANTIBODY (BEAKER) (test code = 497) N onreactive Nonreactive POCT-GLUCOSE [id number] 12:32:00* Test Item Value Reference Range Interpretation Comments POC-GLUCOSE METER (BEAKER) (test code = 1538) 228 mg/dL 70-110 H : TESTED AT [facility] [address] [facility], [address]: Emergency Department Rn/Intermediate Accountant ID = [id number] for JASON TOURE CALCIUM, [id number] 08:05:00* Test Item Value Reference Range Interpretation Comments CALCIUM IONIZED (BEAKER) (test code = 698) 1.06 mmol/L 1.12-1.27 L PH, BLOOD (BEAKER) (test code = 1810) 7.45 POCT-GLUCOSE [id number] 07:46:00* Test Item Value Reference Range Interpretation Comments POC-GLUCOSE METER (BEAKER) (test code = 1538) 252 mg/dL 70-110 H : TESTED AT [place] [id number] [facility], [address]: Emergency Department Rn/Intermediate Accountant ID = [id number] for JASON TOURE [id number] 06:19:00* Test Item Value Reference Range Interpretation Comments PHOSPHORUS (BEAKER) (test code = 604) 3.6 mg/dL 2.3-4.7 [id number] 06:19:00* Test Item Value Reference Range Interpretation Comments MAGNESIUM (BEAKER) (test code = 627) 1.9 mg/dL 1.6-2.6 BASIC METABOLIC [id number] 06:19:00* Test Item Value Reference Range Interpretation Comments SODIUM (BEAKER) (test code = 381) 138 meq/L 136-145 POTASSIUM (BEAKER) (test code = 379) 3.7 meq/L 3.5-5.1 CHLORIDE (BEAKER) (test code = 382) 99 meq/L 98-107 CO2 (BEAKER) (test code = 355) 31 meq/L 22-29 H BLOOD UREA NITROGEN (BEAKER) (test code = 354) 26 mg/dL 7-21 H CREATININE (BEAKER) (test code = 358) 5.60 mg/dL 0.57-1.25 H GLUCOSE RANDOM (BEAKER) (test code = 652) 261 mg/dL 70-105 H CALCIUM (BEAKER) (test code = 697) 8.3 mg/dL 8.4-10.2 L EGFR (BEAKER) (test code = 1092) 10 mL/min/1.73 sq m ESTIMATED GFR IS NOT ACCURATE CREATININE CLEARANCE IN PREDICTING GLOMERULAR FILTRATION RATE. ESTIMATED GFR IS NOT APPLICABLE FOR DIALYSIS PATIENTS. PROTHROMBIN TIME/[id number] 05:50:00* Test Item Value Reference Range Interpretation Comments PROTIME (BEAKER) (test code = 759) 18.3 seconds 11.9-14.2 H INR (BEAKER) (test code = 370) 1.6 <=5.9 Effective 08/28/2018: PT Reference Range ChangeNew: 11.9-14.2 Previous: 11.7-14. 7RECOMMENDED COUMADIN/WARFARIN INR THERAPY RANGESSTANDARD DOSE: 2.0-3.0 Include s: PROPHYLAXIS for venous thrombosis, systemic embolization; TREATMENT for venou s thrombosis and/or pulmonary embolus.HIGH RISK: Target INR is 2.5-3.5 for patie nts wiht mechanical heart valves.CBC W/PLT COUNT & AUTO [id number] 05:47:00* Test Item Value Reference Range Interpretation Comments WHITE BLOOD CELL COUNT (BEAKER) (test code = 775) 8.8 K/ L 3.5- 10.5 RED BLOOD CELL COUNT (BEAKER) (test code = 761) 3.00 M/ L 4.63-6 .08 L HEMOGLOBIN (BEAKER) (test code = 410) 8.7 GM/DL 13.7-17.5 L HEMATOCRIT (BEAKER) (test code = 411) 28.4 % 40.1-51.0 L MEAN CORPUSCULAR VOLUME (BEAKER) (test code = 753) 94.7 fL 79. 0-92.2 H MEAN CORPUSCULAR HEMOGLOBIN (BEAKER) (test code = 751) 29.0 pg 25.7-32.2 MEAN CORPUSCULAR HEMOGLOBIN CONC (BEAKER) (test code = 752) 30.6 GM/DL 32.3-36.5 L RED CELL DISTRIBUTION WIDTH (BEAKER) (test code = 412) 15.7 % 11.6-14.4 H PLATELET COUNT (BEAKER) (test code = 756) 218 K/CU MM 150-450 MEAN PLATELET VOLUME (BEAKER) (test code = 754) 9.4 fL 9.4-12 .4 NUCLEATED RED BLOOD CELLS (BEAKER) (test code = 413) 0 /100 WBC 0 -0 NEUTROPHILS RELATIVE PERCENT (BEAKER) (test code = 429) 66 % LYMPHOCYTES RELATIVE PERCENT (BEAKER) (test code = 430) 18 % MONOCYTES RELATIVE PERCENT (BEAKER) (test code = 431) 10 % EOSINOPHILS RELATIVE PERCENT (BEAKER) (test code = 432) 4 % BASOPHILS RELATIVE PERCENT (BEAKER) (test code = 437) 1 % NEUTROPHILS ABSOLUTE COUNT (BEAKER) (test code = 670) 5.81 K/ L 1.78-5.38 H LYMPHOCYTES ABSOLUTE COUNT (BEAKER) (test code = 414) 1.59 K/ L 1.32-3.57 MONOCYTES ABSOLUTE COUNT (BEAKER) (test code = 415) 0.88 K/ L 0. 30-0.82 H EOSINOPHILS ABSOLUTE COUNT (BEAKER) (test code = 416) 0.34 K/ L 0.04-0.54 BASOPHILS ABSOLUTE COUNT (BEAKER) (test code = 417) 0.06 K/ L 0. 01-0.08 IMMATURE GRANULOCYTES-RELATIVE PERCENT (BEAKER) (test code = 2801) 1 % 0-1 HEPATITIS B SURFACE [id number] 01:36:00* Test Item Value Reference Range Interpretation Comments HEPATITIS B SURFACE ANTIGEN (2) (BEAKER) (test code = 2585) Nonreactive Nonreactive COMPREHENSIVE METABOLIC [id number] 01:13:00* Test Item Value Reference Range Interpretation Comments TOTAL PROTEIN (BEAKER) (test code = 770) 6.2 gm/dL 6.0-8.3 ALBUMIN (BEAKER) (test code = 1145) 3.1 g/dL 3.5-5.0 L ALKALINE PHOSPHATASE (BEAKER) (test code = 346) 89 U/L 40-150 BILIRUBIN TOTAL (BEAKER) (test code = 377) 0.5 mg/dL 0.2-1.2 SODIUM (BEAKER) (test code = 381) 136 meq/L 136-145 POTASSIUM (BEAKER) (test code = 379) 3.6 meq/L 3.5-5.1 CHLORIDE (BEAKER) (test code = 382) 98 meq/L 98-107 CO2 (BEAKER) (test code = 355) 30 meq/L 22-29 H BLOOD UREA NITROGEN (BEAKER) (test code = 354) 26 mg/dL 7-21 H CREATININE (BEAKER) (test code = 358) 5.11 mg/dL 0.57-1.25 H GLUCOSE RANDOM (BEAKER) (test code = 652) 279 mg/dL 70-105 H CALCIUM (BEAKER) (test code = 697) 8.4 mg/dL 8.4-10.2 AST (SGOT) (BEAKER) (test code = 353) 11 U/L 5-34 ALT (SGPT) (BEAKER) (test code = 347) 17 U/L 6-55 EGFR (BEAKER) (test code = 1092) 11 mL/min/1.73 sq m ESTIMATED GFR IS NOT ACCURATE CREATININE CLEARANCE IN PREDICTING GLOMERULAR FILTRATION RATE. ESTIMATED GFR IS NOT APPLICABLE FOR DIALYSIS PATIENTS. [id number] 01:05:00* Test Item Value Reference Range Interpretation Comments PHOSPHORUS (BEAKER) (test code = 604) 3.4 mg/dL 2.3-4.7 [id number] 01:05:00* Test Item Value Reference Range Interpretation Comments MAGNESIUM (BEAKER) (test code = 627) 1.8 mg/dL 1.6-2.6 PROTHROMBIN TIME/[id number] 00:38:00* Test Item Value Reference Range Interpretation Comments PROTIME (BEAKER) (test code = 759) 18.0 seconds 11.9-14.2 H INR (BEAKER) (test code = 370) 1.6 <=5.9 Effective 08/28/2018: PT Reference Range ChangeNew: 11.9-14.2 Previous: 11.7-14. 7RECOMMENDED COUMADIN/WARFARIN INR THERAPY RANGESSTANDARD DOSE: 2.0-3.0 Include s: PROPHYLAXIS for venous thrombosis, systemic embolization; TREATMENT for venou s thrombosis and/or pulmonary embolus.HIGH RISK: Target INR is 2.5-3.5 for patie nts wiht mechanical heart valves.CBC W/PLT COUNT & AUTO [id number] 00:30:00* Test Item Value Reference Range Interpretation Comments WHITE BLOOD CELL COUNT (BEAKER) (test code = 775) 9.7 K/ L 3.5- 10.5 RED BLOOD CELL COUNT (BEAKER) (test code = 761) 3.04 M/ L 4.63-6 .08 L HEMOGLOBIN (BEAKER) (test code = 410) 8.7 GM/DL 13.7-17.5 L HEMATOCRIT (BEAKER) (test code = 411) 29.3 % 40.1-51.0 L MEAN CORPUSCULAR VOLUME (BEAKER) (test code = 753) 96.4 fL 79. 0-92.2 H MEAN CORPUSCULAR HEMOGLOBIN (BEAKER) (test code = 751) 28.6 pg 25.7-32.2 MEAN CORPUSCULAR HEMOGLOBIN CONC (BEAKER) (test code = 752) 29.7 GM/DL 32.3-36.5 L RED CELL DISTRIBUTION WIDTH (BEAKER) (test code = 412) 15.6 % 11.6-14.4 H PLATELET COUNT (BEAKER) (test code = 756) 200 K/CU MM 150-450 MEAN PLATELET VOLUME (BEAKER) (test code = 754) 9.2 fL 9.4-12 .4 L NUCLEATED RED BLOOD CELLS (BEAKER) (test code = 413) 0 /100 WBC 0 -0 NEUTROPHILS RELATIVE PERCENT (BEAKER) (test code = 429) 72 % LYMPHOCYTES RELATIVE PERCENT (BEAKER) (test code = 430) 15 % MONOCYTES RELATIVE PERCENT (BEAKER) (test code = 431) 9 % EOSINOPHILS RELATIVE PERCENT (BEAKER) (test code = 432) 3 % BASOPHILS RELATIVE PERCENT (BEAKER) (test code = 437) 1 % NEUTROPHILS ABSOLUTE COUNT (BEAKER) (test code = 670) 6.96 K/ L 1.78-5.38 H LYMPHOCYTES ABSOLUTE COUNT (BEAKER) (test code = 414) 1.49 K/ L 1.32-3.57 MONOCYTES ABSOLUTE COUNT (BEAKER) (test code = 415) 0.88 K/ L 0. 30-0.82 H EOSINOPHILS ABSOLUTE COUNT (BEAKER) (test code = 416) 0.29 K/ L 0.04-0.54 BASOPHILS ABSOLUTE COUNT (BEAKER) (test code = 417) 0.05 K/ L 0. 01-0.08 IMMATURE GRANULOCYTES-RELATIVE PERCENT (BEAKER) (test code = 2801) 1 % 0-1 POCT-GLUCOSE [id number] 21:42:00* Test Item Value Reference Range Interpretation Comments POC-GLUCOSE METER (BEAKER) (test code = 1538) 280 mg/dL 70-110 H : TESTED AT [facility] [address] [facility], [address]: Emergency Department Rn/Intermediate Accountant ID = [id number] for Terri Magaña CHEST SINGLE (PORTABLE)2019-03-13 14:48:00 [place] [address] Patient Name: ARY ALEJO MR #: [id number] : 1935 Age/Sex: 83/M Req #: [id number] Adm Physician: Ordered by: WILFRIDO ADDISON DO Report #: [id number] Location: ER Room/Bed: Procedure: [id number] DX/ EST SINGLE (PORTABLE) Exam Date: 03/13/19 Exam Time: 1330 REPORT STATUS: Signed Ches t, 1 view, 03/13/2019. History: Weakness. Comparison: 9. Findings: The cardiomediastinal silhouette and pulmonary vasculature are within normal limits for a portable exam. Linear opacities are present at the lung bases. There is no focal consolidation or pleural effusion. Right IJ chelsy neled dialysis catheter is unchanged in position. Pacer/similar device overlie s the right upper chest. There are no acute osseous or soft tissue abnormaliti es. Impression: Bibasilar atelectasis. Signed by: Wilfrido Gee on 03/13/2019 2:49 PM Dictated By: WILFRIDO GEE MD 48 Transcribed By: SALVADOR on 03/13/191448 COPY TO: WILFRIDO ADDISON DO B-Type Natriuretic [id number] 13:50:00* Test Item Value Reference Range Interpretation Comments B-Type Natriuretic Peptide (test code = 67576-1) 21.7 0[facility] Test Item Value Reference Range Interpretation Comments GLUBED (test code = GLUBED) 165 mg/dL 74-106 H Performed by certified cream separator operator at [facility] PROTHROMBIN [id number] 08:16:00* Test Item Value Reference Range Interpretation Comments PROTHROMBIN TIME PATIENT (test code = PTP) 30.9 seconds 9.0-14.0 H INTERNATIONAL NORMAL RATIO (test code = INR) 2.6 0.8-1.2 H The therapeutic range for oral anticoagulant therapy formost indications is an international normalized ratio (INR)of between 2.0 and 3.0. The recommended therapeutic INRrange for various clinical situations is listed below: Clinical Situation INR range Pulmonary e mbolism treatment (2.0-3.0)Venous thrombosis treatmentVenous thrombosis prophylaxis (high risk surgery)Prevention of systemic embolism from: Acute myocardial infarction Valvular heart disease Atrial fibrillation Mechanical prosthetic heart valves (2.5-3.5) IS PATIENT ON ANTICOAGULANTS? YLIST ANTICOAGULANTS [id number] 08:15:00* Test Item Value Reference Range Interpretation Comments GLUBED (test code = GLUBED) 220 mg/dL 74-106 H Performed by certified cream separator operator at [facility] [id number] 19:55:00* Test Item Value Reference Range Interpretation Comments GLUBED (test code = GLUBED) 170 mg/dL 74-106 H Performed by certified cream separator operator at [facility] [id number] 12:40:00* Test Item Value Reference Range Interpretation Comments GLUBED (test code = GLUBED) 223 mg/dL 74-106 H Performed by certified cream separator operator at [facility] CBC W/AUTO [id number] 11:23:00* Test Item Value Reference Range Interpretation Comments WHITE BLOOD CELL (test code = WBC) 12.0 K/mm3 4.5-12.5 N RED BLOOD CELL (test code = RBC) 3.23 mill/mm3 4.0-5.8 L HEMOGLOBIN (test code = HGB) 9.4 gram/dL 13.0-17.5 L HEMATOCRIT (test code = HCT) 31.8 % 42.0-52.0 L MEAN CELL VOLUME (test code = MCV) 98.5 fL 80-98 H MEAN CELL HGB (test code = MCH) 29.1 picogram 27.0-33.0 N MEAN CELL HGB CONCETRATION (test code = MCHC) 29.6 gram/dL 33.0-36. 0 L RED CELL DISTRIBUTION WIDTH (test code = RDW) 16.6 % 11.6-16. 2 H RED CELL DISTRIBUTION WIDTH SD (test code = RDW-SD) 59.5 fL 37 .0-51.0 H PLATELET COUNT (test code = PLT) 199 K/mm3 150-450 N MEAN PLATELET VOLUME (test code = MPV) 9.6 fL 6.7-11.0 N NEUTROPHIL % (test code = NT%) 77.7 % 39.0-69.0 H IMMATURE GRANULOCYTE % (test code = IG%) 0.8 % 0.0-5.0 N LYMPHOCYTE % (test code = LY%) 9.8 % 25.0-55.0 L MONOCYTE % (test code = MO%) 8.3 % 0.0-10.0 N EOSINOPHIL % (test code = EO%) 2.8 % 0.0-5.0 N BASOPHIL % (test code = BA%) 0.6 % 0.0-1.0 N NUCLEATED RBC % (test code = NRBC%) 0.0 % 0-0 N NEUTROPHIL # (test code = NT#) 9.33 K/mm3 1.8-7.7 H IMMATURE GRANULOCYTE # (test code = IG#) 0.09 x10 3/uL 0-0.03 H LYMPHOCYTE # (test code = LY#) 1.17 K/mm3 1.0-5.0 N MONOCYTE # (test code = MO#) 1.00 K/mm3 0-0.8 H EOSINOPHIL # (test code = EO#) 0.33 K/mm3 0.0-0.5 N BASOPHIL # (test code = BA#) 0.07 K/mm3 0.0-0.2 N NUCLEATED RBC # (test code = NRBC#) 0.00 K/mm3 0.0-0.1 N MANUAL DIFF REQUIRED (test code = MDIFF) NO, ONLY SCAN NEEDED DIFFERENTIAL [id number] 11:23:00* Test Item Value Reference Range Interpretation Comments STAIN ACCEPTABILITY (test code = STN ACCEPTABLE) STAIN ACCEPTABLE ANISOCYTOSIS (test code = ANISO) 1+ PLATELET ESTIMATE (test code = PLTEST) ADEQUATE PLATELET MORPHOLOGY (test code = PLTMORPH) NORMAL CBC W/AUTO [id number] 10:55:00* Test Item Value Reference Range Interpretation Comments WHITE BLOOD CELL (test code = WBC) 12.0 K/mm3 4.5-12.5 N RED BLOOD CELL (test code = RBC) 3.23 mill/mm3 4.0-5.8 L HEMOGLOBIN (test code = HGB) 9.4 gram/dL 13.0-17.5 L HEMATOCRIT (test code = HCT) 31.8 % 42.0-52.0 L MEAN CELL VOLUME (test code = MCV) 98.5 fL 80-98 H MEAN CELL HGB (test code = MCH) 29.1 picogram 27.0-33.0 N MEAN CELL HGB CONCETRATION (test code = MCHC) 29.6 gram/dL 33.0-36. 0 L RED CELL DISTRIBUTION WIDTH (test code = RDW) 16.6 % 11.6-16. 2 H RED CELL DISTRIBUTION WIDTH SD (test code = RDW-SD) 59.5 fL 37 .0-51.0 H PLATELET COUNT (test code = PLT) 199 K/mm3 150-450 N MEAN PLATELET VOLUME (test code = MPV) 9.6 fL 6.7-11.0 N NEUTROPHIL % (test code = NT%) 77.7 % 39.0-69.0 H IMMATURE GRANULOCYTE % (test code = IG%) 0.8 % 0.0-5.0 N LYMPHOCYTE % (test code = LY%) 9.8 % 25.0-55.0 L MONOCYTE % (test code = MO%) 8.3 % 0.0-10.0 N EOSINOPHIL % (test code = EO%) 2.8 % 0.0-5.0 N BASOPHIL % (test code = BA%) 0.6 % 0.0-1.0 N NUCLEATED RBC % (test code = NRBC%) 0.0 % 0-0 N NEUTROPHIL # (test code = NT#) 9.33 K/mm3 1.8-7.7 H IMMATURE GRANULOCYTE # (test code = IG#) 0.09 x10 3/uL 0-0.03 H LYMPHOCYTE # (test code = LY#) 1.17 K/mm3 1.0-5.0 N MONOCYTE # (test code = MO#) 1.00 K/mm3 0-0.8 H EOSINOPHIL # (test code = EO#) 0.33 K/mm3 0.0-0.5 N BASOPHIL # (test code = BA#) 0.07 K/mm3 0.0-0.2 N NUCLEATED RBC # (test code = NRBC#) 0.00 K/mm3 0.0-0.1 N MANUAL DIFF REQUIRED (test code = MDIFF) NO, ONLY SCAN NEEDED DIFFERENTIAL [id number] 10:55:00* Test Item Value Reference Range Interpretation Comments STAIN ACCEPTABILITY (test code = STN ACCEPTABLE) CABOT RINGS (test code = CAB) MORPHOLOGY COMMENT (test code = MOC) PLATELET ESTIMATE (test code = PLTEST) PLATELET MORPHOLOGY (test code = PLTMORPH) CBC W/AUTO [id number] 10:55:00* Test Item Value Reference Range Interpretation Comments WHITE BLOOD CELL (test code = WBC) 12.0 K/mm3 4.5-12.5 N RED BLOOD CELL (test code = RBC) 3.23 mill/mm3 4.0-5.8 L HEMOGLOBIN (test code = HGB) 9.4 gram/dL 13.0-17.5 L HEMATOCRIT (test code = HCT) 31.8 % 42.0-52.0 L MEAN CELL VOLUME (test code = MCV) 98.5 fL 80-98 H MEAN CELL HGB (test code = MCH) 29.1 picogram 27.0-33.0 N MEAN CELL HGB CONCETRATION (test code = MCHC) 29.6 gram/dL 33.0-36. 0 L RED CELL DISTRIBUTION WIDTH (test code = RDW) 16.6 % 11.6-16. 2 H RED CELL DISTRIBUTION WIDTH SD (test code = RDW-SD) 59.5 fL 37 .0-51.0 H PLATELET COUNT (test code = PLT) 199 K/mm3 150-450 N MEAN PLATELET VOLUME (test code = MPV) 9.6 fL 6.7-11.0 N NEUTROPHIL % (test code = NT%) 77.7 % 39.0-69.0 H IMMATURE GRANULOCYTE % (test code = IG%) 0.8 % 0.0-5.0 N LYMPHOCYTE % (test code = LY%) 9.8 % 25.0-55.0 L MONOCYTE % (test code = MO%) 8.3 % 0.0-10.0 N EOSINOPHIL % (test code = EO%) 2.8 % 0.0-5.0 N BASOPHIL % (test code = BA%) 0.6 % 0.0-1.0 N NUCLEATED RBC % (test code = NRBC%) 0.0 % 0-0 N NEUTROPHIL # (test code = NT#) 9.33 K/mm3 1.8-7.7 H IMMATURE GRANULOCYTE # (test code = IG#) 0.09 x10 3/uL 0-0.03 H LYMPHOCYTE # (test code = LY#) 1.17 K/mm3 1.0-5.0 N MONOCYTE # (test code = MO#) 1.00 K/mm3 0-0.8 H EOSINOPHIL # (test code = EO#) 0.33 K/mm3 0.0-0.5 N BASOPHIL # (test code = BA#) 0.07 K/mm3 0.0-0.2 N NUCLEATED RBC # (test code = NRBC#) 0.00 K/mm3 0.0-0.1 N MANUAL DIFF REQUIRED (test code = MDIFF) NO, ONLY SCAN NEEDED DIFFERENTIAL [id number] 10:55:00* Test Item Value Reference Range Interpretation Comments STAIN ACCEPTABILITY (test code = STN ACCEPTABLE) CABOT RINGS (test code = CAB) MORPHOLOGY COMMENT (test code = MOC) PLATELET ESTIMATE (test code = PLTEST) PLATELET MORPHOLOGY (test code = PLTMORPH) CBC W/AUTO [id number] 10:55:00* Test Item Value Reference Range Interpretation Comments WHITE BLOOD CELL (test code = WBC) 12.0 K/mm3 4.5-12.5 N RED BLOOD CELL (test code = RBC) 3.23 mill/mm3 4.0-5.8 L HEMOGLOBIN (test code = HGB) 9.4 gram/dL 13.0-17.5 L HEMATOCRIT (test code = HCT) 31.8 % 42.0-52.0 L MEAN CELL VOLUME (test code = MCV) 98.5 fL 80-98 H MEAN CELL HGB (test code = MCH) 29.1 picogram 27.0-33.0 N MEAN CELL HGB CONCETRATION (test code = MCHC) 29.6 gram/dL 33.0-36. 0 L RED CELL DISTRIBUTION WIDTH (test code = RDW) 16.6 % 11.6-16. 2 H RED CELL DISTRIBUTION WIDTH SD (test code = RDW-SD) 59.5 fL 37 .0-51.0 H PLATELET COUNT (test code = PLT) 199 K/mm3 150-450 N MEAN PLATELET VOLUME (test code = MPV) 9.6 fL 6.7-11.0 N NEUTROPHIL % (test code = NT%) 77.7 % 39.0-69.0 H IMMATURE GRANULOCYTE % (test code = IG%) 0.8 % 0.0-5.0 N LYMPHOCYTE % (test code = LY%) 9.8 % 25.0-55.0 L MONOCYTE % (test code = MO%) 8.3 % 0.0-10.0 N EOSINOPHIL % (test code = EO%) 2.8 % 0.0-5.0 N BASOPHIL % (test code = BA%) 0.6 % 0.0-1.0 N NUCLEATED RBC % (test code = NRBC%) 0.0 % 0-0 N NEUTROPHIL # (test code = NT#) 9.33 K/mm3 1.8-7.7 H IMMATURE GRANULOCYTE # (test code = IG#) 0.09 x10 3/uL 0-0.03 H LYMPHOCYTE # (test code = LY#) 1.17 K/mm3 1.0-5.0 N MONOCYTE # (test code = MO#) 1.00 K/mm3 0-0.8 H EOSINOPHIL # (test code = EO#) 0.33 K/mm3 0.0-0.5 N BASOPHIL # (test code = BA#) 0.07 K/mm3 0.0-0.2 N NUCLEATED RBC # (test code = NRBC#) 0.00 K/mm3 0.0-0.1 N MANUAL DIFF REQUIRED (test code = MDIFF) NO, ONLY SCAN NEEDED DIFFERENTIAL [id number] 10:55:00* Test Item Value Reference Range Interpretation Comments STAIN ACCEPTABILITY (test code = STN ACCEPTABLE) MORPHOLOGY COMMENT (test code = MOC) PLATELET ESTIMATE (test code = PLTEST) PLATELET MORPHOLOGY (test code = PLTMORPH) CBC W/AUTO [id number] 10:55:00* Test Item Value Reference Range Interpretation Comments WHITE BLOOD CELL (test code = WBC) 12.0 K/mm3 4.5-12.5 N RED BLOOD CELL (test code = RBC) 3.23 mill/mm3 4.0-5.8 L HEMOGLOBIN (test code = HGB) 9.4 gram/dL 13.0-17.5 L HEMATOCRIT (test code = HCT) 31.8 % 42.0-52.0 L MEAN CELL VOLUME (test code = MCV) 98.5 fL 80-98 H MEAN CELL HGB (test code = MCH) 29.1 picogram 27.0-33.0 N MEAN CELL HGB CONCETRATION (test code = MCHC) 29.6 gram/dL 33.0-36. 0 L RED CELL DISTRIBUTION WIDTH (test code = RDW) 16.6 % 11.6-16. 2 H RED CELL DISTRIBUTION WIDTH SD (test code = RDW-SD) 59.5 fL 37 .0-51.0 H PLATELET COUNT (test code = PLT) 199 K/mm3 150-450 N MEAN PLATELET VOLUME (test code = MPV) 9.6 fL 6.7-11.0 N NEUTROPHIL % (test code = NT%) 77.7 % 39.0-69.0 H IMMATURE GRANULOCYTE % (test code = IG%) 0.8 % 0.0-5.0 N LYMPHOCYTE % (test code = LY%) 9.8 % 25.0-55.0 L MONOCYTE % (test code = MO%) 8.3 % 0.0-10.0 N EOSINOPHIL % (test code = EO%) 2.8 % 0.0-5.0 N BASOPHIL % (test code = BA%) 0.6 % 0.0-1.0 N NUCLEATED RBC % (test code = NRBC%) 0.0 % 0-0 N NEUTROPHIL # (test code = NT#) 9.33 K/mm3 1.8-7.7 H IMMATURE GRANULOCYTE # (test code = IG#) 0.09 x10 3/uL 0-0.03 H LYMPHOCYTE # (test code = LY#) 1.17 K/mm3 1.0-5.0 N MONOCYTE # (test code = MO#) 1.00 K/mm3 0-0.8 H EOSINOPHIL # (test code = EO#) 0.33 K/mm3 0.0-0.5 N BASOPHIL # (test code = BA#) 0.07 K/mm3 0.0-0.2 N NUCLEATED RBC # (test code = NRBC#) 0.00 K/mm3 0.0-0.1 N MANUAL DIFF REQUIRED (test code = MDIFF) NO, ONLY SCAN NEEDED DIFFERENTIAL [id number] 10:55:00* Test Item Value Reference Range Interpretation Comments STAIN ACCEPTABILITY (test code = STN ACCEPTABLE) CABOT RINGS (test code = CAB) MORPHOLOGY COMMENT (test code = MOC) PLATELET ESTIMATE (test code = PLTEST) PLATELET MORPHOLOGY (test code = PLTMORPH) BASIC METABOLIC [id number] 09:46:00* Test Item Value Reference Range Interpretation Comments SODIUM (test code = NA) 137 mmol/L 136-145 N POTASSIUM (test code = K) 4.9 mmol/L 3.5-5.1 N CHLORIDE (test code = CL) 99.0 mmol/L 98-107 N CARBON DIOXIDE (test code = CO2) 30.0 mmol/L 21-32 N ANION GAP (test code = GAP) 12.9 10-20 N GLUCOSE (test code = GLU) 199 mg/dL 74-106 H BLOOD UREA NITROGEN (test code = BUN) 32 mg/dL 7-18 H GLOMERULAR FILTRATION RATE (test code = GFR) 9 mL/min >=60 Estimated GFR by using Modified MDRD formula.Chronic kidney disease is defined as either kidney damageor GFR <60 mL/min/1.73 m2 for >3 months. CREATININE (test code = CREAT) 6.20 mg/dL 0.7-1.3 H BUN/CREATININE RATIO (test code = BUN/CREA) 5.2 10-20 L CALCIUM (test code = CA) 8.7 mg/dL 8.5-10.1 N BASIC METABOLIC [id number] 09:41:00* Test Item Value Reference Range Interpretation Comments SODIUM (test code = NA) 137 mmol/L 136-145 N POTASSIUM (test code = K) 4.9 mmol/L 3.5-5.1 N CHLORIDE (test code = CL) 99.0 mmol/L 98-107 N CARBON DIOXIDE (test code = CO2) mmol/L 21-32 ANION GAP (test code = GAP) 10-20 GLUCOSE (test code = GLU) mg/dL 74-106 BLOOD UREA NITROGEN (test code = BUN) mg/dL 7-18 GLOMERULAR FILTRATION RATE (test code = GFR) mL/min >=60 CREATININE (test code = CREAT) mg/dL 0.7-1.3 BUN/CREATININE RATIO (test code = BUN/CREA) 10-20 CALCIUM (test code = CA) mg/dL 8.5-10.1 PROTHROMBIN [id number] 08:02:00* Test Item Value Reference Range Interpretation Comments PROTHROMBIN TIME PATIENT (test code = PTP) 28.5 seconds 9.0-14.0 H INTERNATIONAL NORMAL RATIO (test code = INR) 2.4 0.8-1.2 H The therapeutic range for oral anticoagulant therapy formost indications is an international normalized ratio (INR)of between 2.0 and 3.0. The recommended therapeutic INRrange for various clinical situations is listed below: Clinical Situation INR range Pulmonary e mbolism treatment (2.0-3.0)Venous thrombosis treatmentVenous thrombosis prophylaxis (high risk surgery)Prevention of systemic embolism from: Acute myocardial infarction Valvular heart disease Atrial fibrillation Mechanical prosthetic heart valves (2.5-3.5) IS PATIENT ON ANTICOAGULANTS? YLIST ANTICOAGULANTS [id number] 07:53:00* Test Item Value Reference Range Interpretation Comments GLUBED (test code = GLUBED) 217 mg/dL 74-106 H Performed by certified cream separator operator at [facility] [id number] 20:51:00* Test Item Value Reference Range Interpretation Comments GLUBED (test code = GLUBED) 223 mg/dL 74-106 H Performed by certified cream separator operator at [facility] [id number] 16:36:00* Test Item Value Reference Range Interpretation Comments GLUBED (test code = GLUBED) 162 mg/dL 74-106 H Performed by certified cream separator operator at [facility] [id number] 16:10:00* Test Item Value Reference Range Interpretation Comments GLUBED (test code = GLUBED) 23 mg/dL 74-106 LL Test performed as P.O.C. by nursing staff.[facility]~ [id number] 16:10:00* Test Item Value Reference Range Interpretation Comments GLUBED (test code = GLUBED) 25 mg/dL 74-106 LL Test performed as P.O.C. by nursing staff.[facility] certified cream [facility] [id number] 11:15:00* Test Item Value Reference Range Interpretation Comments GLUBED (test code = GLUBED) 165 mg/dL 74-106 H Performed by certified cream separator operator at [facility] [id number] 07:51:00* Test Item Value Reference Range Interpretation Comments GLUBED (test code = GLUBED) 182 mg/dL 74-106 H Performed by certified cream separator operator at [facility] PROTHROMBIN [id number] 06:51:00* Test Item Value Reference Range Interpretation Comments PROTHROMBIN TIME PATIENT (test code = PTP) 25.3 seconds 9.0-14.0 H INTERNATIONAL NORMAL RATIO (test code = INR) 2.2 0.8-1.2 H The therapeutic range for oral anticoagulant therapy formost indications is an international normalized ratio (INR)of between 2.0 and 3.0. The recommended therapeutic INRrange for various clinical situations is listed below: Clinical Situation INR range Pulmonary e mbolism treatment (2.0-3.0)Venous thrombosis treatmentVenous thrombosis prophylaxis (high risk surgery)Prevention of systemic embolism from: Acute myocardial infarction Valvular heart disease Atrial fibrillation Mechanical prosthetic heart valves (2.5-3.5) IS PATIENT ON ANTICOAGULANTS? YLIST ANTICOAGULANTS [id number] 21:03:00* Test Item Value Reference Range Interpretation Comments GLUBED (test code = GLUBED) 156 mg/dL 74-106 H Performed by certified cream separator operator at [facility] [id number] 18:31:00* Test Item Value Reference Range Interpretation Comments GLUBED (test code = GLUBED) 165 mg/dL 74-106 H Performed by certified cream separator operator at [facility] - CT UP EXTREM W/O CONT [id number] 14:57:00 Name: ARY ALEJO [facility] : 1935 Age/S: 83 / M [address] [facility] Unit #: [id number] Loc: BARBARA Rapp [address] Phys: Leonel Barrera DO Acct: [id number] Dis Date: Status: ADM IN PHONE #: [phone] Exam Date: 02/17/2019 1125 FAX #: [phone] Reason: severe left shoulder pain EXAMS: CPT CODE: [id number] [place] W/[place] [address] [place] OF THE LEFT SHOULDER WITH SAGITTAL AND CORONAL RECONSTRUCTIONS DIAGNOSIS: Left shoulder pain COMPARISON: Left shoulder radiographs earlier today at 7:52 AM Scans were performed with thin sections and reconstructions were obtained. CT radiation dose optimization is achieved for this examination by the use of a CT protocol in accordance with ACR practice standards and adherence to telephone installer's recommendations. FINDINGS: There is no fracture. The glenohumeral joint is appropriately aligned. There is mild narrowing of the acromioclavicular joint with small osteophytes. No obvious abnormality of the soft tissues of the rotator cuff. No obvious effusion of the left shoulder joint. The visualized left hemithorax is within normal limits. IMPRESSION: Mild degenerative changes of the left shoulder but no acute bony abnormality and no obvious soft tissue abnormality. Nonemergent MRI can provide further evaluation if clinically warranted. Location: [facility] at 9026 Reported and signed by: Richi Godinez MD CC: Leonel Barrera [facility]; Wellington Pace MD Technologist :Nilson Gilman RT(R),(MR),(CT) CTDI: DLP: Trnscb Date/Time: 01/31 (4118) [email or web address] Orig Print D/T: S: 02/17/2019 (16 04) PAGE 1 Signed Report [id number] 11:22:00* Test Item Value Reference Range Interpretation Comments GLUBED (test code = GLUBED) 145 mg/dL 74-106 H Performed by certified cream separator operator at [facility] - XR SHOULDER 2 + V [id number] 08:14:00 FAX: Leonel Smith [place]: B St: ADM FAX: Wellington Hercules MD [phone] Name: ARY ALEJO [facility] : 1935 Age/S: 83/M [address] Unit #: [id number] Loc: V.3090 BARBARA Rapp [address] Phys: Leonel Barrera DO Acct: [id number] Dis Date: Status: ADM IN PHONE #: [phone] Exam Date: 02/17/2019 0752 FAX #: [phone] Reason: NEW ONSET SEVERE LEFT SHOULDER PAIN EXAMS: CPT CODE: [id number] XR SHOULDER 2 + [place] [address] HISTORY: NEW ONSET SEVERE LEFT SHOULDER PAIN TECHNIQUE: Internal/external rotation AP and scapular Y-views of the left shoulder. FINDINGS: No acute fracture. Glenohumeral and acromioclavicular joints are not dislocated. Articulating surfaces appear preserved. Regional soft tissues are unremarkable. Visualized thorax is within normal limits. IMPRESSION: Negative radiographic examination of the left shoulder. Location: [facility] at 0814 Reported and signed by: Richi Godinez MD CC: Leonel Barrera DO; Wellington Pace MD Technologist: MONAE MEDINA JR Trnscrd Date/Time/By: 02/17/2019 (08) : By: [email or web address] Orig Print D/T: S: 02/17/2019 (0817) PAGE 1 Signed R eport BASIC METABOLIC [id number] 07:54:00* Test Item Value Reference Range Interpretation Comments SODIUM (test code = NA) 138 mmol/L 136-145 N POTASSIUM (test code = K) 4.6 mmol/L 3.5-5.1 N CHLORIDE (test code = CL) 103.0 mmol/L 98-107 N CARBON DIOXIDE (test code = CO2) 27.0 mmol/L 21-32 N ANION GAP (test code = GAP) 12.6 10-20 N GLUCOSE (test code = GLU) 178 mg/dL 74-106 H BLOOD UREA NITROGEN (test code = BUN) 32 mg/dL 7-18 H GLOMERULAR FILTRATION RATE (test code = GFR) 8 mL/min >=60 Estimated GFR by using Modified MDRD formula.Chronic kidney disease is defined as either kidney damageor GFR <60 mL/min/1.73 m2 for >3 months. CREATININE (test code = CREAT) 6.90 mg/dL 0.7-1.3 H BUN/CREATININE RATIO (test code = BUN/CREA) 4.6 10-20 L CALCIUM (test code = CA) 8.6 mg/dL 8.5-10.1 N [id number] 07:54:00* Test Item Value Reference Range Interpretation Comments PHOSPHORUS (test code = PHOS) 3.3 mg/dL 2.5-4.9 N [id number] 07:52:00* Test Item Value Reference Range Interpretation Comments GLUBED (test code = GLUBED) 164 mg/dL 74-106 H Performed by certified cream separator operator at [facility] BASIC METABOLIC [id number] 07:42:00* Test Item Value Reference Range Interpretation Comments SODIUM (test code = NA) 138 mmol/L 136-145 N POTASSIUM (test code = K) 4.6 mmol/L 3.5-5.1 N CHLORIDE (test code = CL) 103.0 mmol/L 98-107 N CARBON DIOXIDE (test code = CO2) mmol/L 21-32 ANION GAP (test code = GAP) 10-20 GLUCOSE (test code = GLU) mg/dL 74-106 BLOOD UREA NITROGEN (test code = BUN) mg/dL 7-18 GLOMERULAR FILTRATION RATE (test code = GFR) mL/min >=60 CREATININE (test code = CREAT) mg/dL 0.7-1.3 BUN/CREATININE RATIO (test code = BUN/CREA) 10-20 CALCIUM (test code = CA) mg/dL 8.5-10.1 [id number] 07:42:00* Test Item Value Reference Range Interpretation Comments PHOSPHORUS (test code = PHOS) mg/dL 2.5-4.9 PROTHROMBIN [id number] 06:51:00* Test Item Value Reference Range Interpretation Comments PROTHROMBIN TIME PATIENT (test code = PTP) 21.2 seconds 9.0-14.0 H INTERNATIONAL NORMAL RATIO (test code = INR) 1.8 0.8-1.2 H The therapeutic range for oral anticoagulant therapy formost indications is an international normalized ratio (INR)of between 2.0 and 3.0. The recommended therapeutic INRrange for various clinical situations is listed below: Clinical Situation INR range Pulmonary e mbolism treatment (2.0-3.0)Venous thrombosis treatmentVenous thrombosis prophylaxis (high risk surgery)Prevention of systemic embolism from: Acute myocardial infarction Valvular heart disease Atrial fibrillation Mechanical prosthetic heart valves (2.5-3.5) IS PATIENT ON ANTICOAGULANTS? YLIST ANTICOAGULANTS [id number] 19:48:00* Test Item Value Reference Range Interpretation Comments GLUBED (test code = GLUBED) 234 mg/dL 74-106 H Performed by certified cream separator operator at [facility] [id number] 17:45:00* Test Item Value Reference Range Interpretation Comments GLUBED (test code = GLUBED) 107 mg/dL 74-106 H Performed by certified cream separator operator at [facility] [id number] 15:58:00* Test Item Value Reference Range Interpretation Comments GLUBED (test code = GLUBED) 86 mg/dL 74-106 N Performed by certified cream separator operator at [facility] [id number] 11:16:00* Test Item Value Reference Range Interpretation Comments GLUBED (test code = GLUBED) 246 mg/dL 74-106 H Performed by certified cream separator operator at [facility] [id number] 07:34:00* Test Item Value Reference Range Interpretation Comments GLUBED (test code = GLUBED) 216 mg/dL 74-106 H Performed by certified cream separator operator at [facility] PROTHROMBIN [id number] 06:21:00* Test Item Value Reference Range Interpretation Comments PROTHROMBIN TIME PATIENT (test code = PTP) 18.8 seconds 9.0-14.0 H INTERNATIONAL NORMAL RATIO (test code = INR) 1.6 0.8-1.2 H The therapeutic range for oral anticoagulant therapy formost indications is an international normalized ratio (INR)of between 2.0 and 3.0. The recommended therapeutic INRrange for various clinical situations is listed below: Clinical Situation INR range Pulmonary e mbolism treatment (2.0-3.0)Venous thrombosis treatmentVenous thrombosis prophylaxis (high risk surgery)Prevention of systemic embolism from: Acute myocardial infarction Valvular heart disease Atrial fibrillation Mechanical prosthetic heart valves (2.5-3.5) IS PATIENT ON ANTICOAGULANTS? YLIST ANTICOAGULANTS COUMADINCBC W/AUTO DIFF 2019-02-16 06:15:00* Test Item Value Reference Range Interpretation Comments WHITE BLOOD CELL (test code = WBC) 9.6 K/mm3 4.5-12.5 N RED BLOOD CELL (test code = RBC) 3.13 mill/mm3 4.0-5.8 L HEMOGLOBIN (test code = HGB) 9.1 gram/dL 13.0-17.5 L HEMATOCRIT (test code = HCT) 29.9 % 42.0-52.0 L MEAN CELL VOLUME (test code = MCV) 95.5 fL 80-98 N MEAN CELL HGB (test code = MCH) 29.1 picogram 27.0-33.0 N MEAN CELL HGB CONCETRATION (test code = MCHC) 30.4 gram/dL 33.0-36. 0 L RED CELL DISTRIBUTION WIDTH (test code = RDW) 16.4 % 11.6-16. 2 H RED CELL DISTRIBUTION WIDTH SD (test code = RDW-SD) 56.6 fL 37 .0-51.0 H PLATELET COUNT (test code = PLT) 204 K/mm3 150-450 N MEAN PLATELET VOLUME (test code = MPV) 9.8 fL 6.7-11.0 N NEUTROPHIL % (test code = NT%) 66.1 % 39.0-69.0 N IMMATURE GRANULOCYTE % (test code = IG%) 0.7 % 0.0-5.0 N LYMPHOCYTE % (test code = LY%) 17.3 % 25.0-55.0 L MONOCYTE % (test code = MO%) 10.2 % 0.0-10.0 H EOSINOPHIL % (test code = EO%) 5.1 % 0.0-5.0 H BASOPHIL % (test code = BA%) 0.6 % 0.0-1.0 N NUCLEATED RBC % (test code = NRBC%) 0.0 % 0-0 N NEUTROPHIL # (test code = NT#) 6.34 K/mm3 1.8-7.7 N IMMATURE GRANULOCYTE # (test code = IG#) 0.07 x10 3/uL 0-0.03 H LYMPHOCYTE # (test code = LY#) 1.66 K/mm3 1.0-5.0 N MONOCYTE # (test code = MO#) 0.98 K/mm3 0-0.8 H EOSINOPHIL # (test code = EO#) 0.49 K/mm3 0.0-0.5 N BASOPHIL # (test code = BA#) 0.06 K/mm3 0.0-0.2 N NUCLEATED RBC # (test code = NRBC#) 0.00 K/mm3 0.0-0.1 N MANUAL DIFF REQUIRED (test code = MDIFF) NO [id number] 20:23:00* Test Item Value Reference Range Interpretation Comments GLUBED (test code = GLUBED) 240 mg/dL 74-106 H Performed by certified cream separator operator at [facility] HEPATITIS C RNA BY PCR (QUAL)2019-02-15 16:08:00* Test Item Value Reference Range Interpretation Comments HEPATITIS C RNA BY PCR (QUAL) (test code = HCVRNAPCR) Negative Negative Negative: HCV RNA Not DetectedPerformed At: [facility] [address] [place], [place] [id number] Sanjai MD Ph:[phone] [id number] 16:03:00* Test Item Value Reference Range Interpretation Comments GLUBED (test code = GLUBED) 68 mg/dL 74-106 L Performed by certified cream separator operator at [facility] [id number] 11:22:00* Test Item Value Reference Range Interpretation Comments GLUBED (test code = GLUBED) 253 mg/dL 74-106 H Performed by certified cream separator operator at [facility] [id number] 07:38:00* Test Item Value Reference Range Interpretation Comments GLUBED (test code = GLUBED) 225 mg/dL 74-106 H Performed by certified cream separator operator at [facility] PROTHROMBIN [id number] 06:20:00* Test Item Value Reference Range Interpretation Comments PROTHROMBIN TIME PATIENT (test code = PTP) 21.1 seconds 9.0-14.0 H INTERNATIONAL NORMAL RATIO (test code = INR) 1.8 0.8-1.2 H The therapeutic range for oral anticoagulant therapy formost indications is an international normalized ratio (INR)of between 2.0 and 3.0. The recommended therapeutic INRrange for various clinical situations is listed below: Clinical Situation INR range Pulmonary e mbolism treatment (2.0-3.0)Venous thrombosis treatmentVenous thrombosis prophylaxis (high risk surgery)Prevention of systemic embolism from: Acute myocardial infarction Valvular heart disease Atrial fibrillation Mechanical prosthetic heart valves (2.5-3.5) IS PATIENT ON ANTICOAGULANTS? YLIST ANTICOAGULANTS [id number] 19:18:00* Test Item Value Reference Range Interpretation Comments GLUBED (test code = GLUBED) 121 mg/dL 74-106 H Performed by certified cream separator operator at [facility] CBC W/AUTO [id number] 11:51:00* Test Item Value Reference Range Interpretation Comments WHITE BLOOD CELL (test code = WBC) 10.2 K/mm3 4.5-12.5 N RED BLOOD CELL (test code = RBC) 2.93 mill/mm3 4.0-5.8 L HEMOGLOBIN (test code = HGB) 8.6 gram/dL 13.0-17.5 L HEMATOCRIT (test code = HCT) 29.1 % 42.0-52.0 L MEAN CELL VOLUME (test code = MCV) 99.3 fL 80-98 H MEAN CELL HGB (test code = MCH) 29.4 picogram 27.0-33.0 N MEAN CELL HGB CONCETRATION (test code = MCHC) 29.6 gram/dL 33.0-36. 0 L RED CELL DISTRIBUTION WIDTH (test code = RDW) 16.1 % 11.6-16. 2 N RED CELL DISTRIBUTION WIDTH SD (test code = RDW-SD) 58.2 fL 37 .0-51.0 H PLATELET COUNT (test code = PLT) 193 K/mm3 150-450 N MEAN PLATELET VOLUME (test code = MPV) 11.8 fL 6.7-11.0 H NEUTROPHIL % (test code = NT%) 67.4 % 39.0-69.0 N IMMATURE GRANULOCYTE % (test code = IG%) 0.6 % 0.0-5.0 N LYMPHOCYTE % (test code = LY%) 15.1 % 25.0-55.0 L MONOCYTE % (test code = MO%) 10.7 % 0.0-10.0 H EOSINOPHIL % (test code = EO%) 5.5 % 0.0-5.0 H BASOPHIL % (test code = BA%) 0.7 % 0.0-1.0 N NUCLEATED RBC % (test code = NRBC%) 0.0 % 0-0 N NEUTROPHIL # (test code = NT#) 6.85 K/mm3 1.8-7.7 N IMMATURE GRANULOCYTE # (test code = IG#) 0.06 x10 3/uL 0-0.03 H LYMPHOCYTE # (test code = LY#) 1.54 K/mm3 1.0-5.0 N MONOCYTE # (test code = MO#) 1.09 K/mm3 0-0.8 H EOSINOPHIL # (test code = EO#) 0.56 K/mm3 0.0-0.5 H BASOPHIL # (test code = BA#) 0.07 K/mm3 0.0-0.2 N NUCLEATED RBC # (test code = NRBC#) 0.00 K/mm3 0.0-0.1 N MANUAL DIFF REQUIRED (test code = MDIFF) NO, ONLY SCAN NEEDED DIFFERENTIAL [id number] 11:51:00* Test Item Value Reference Range Interpretation Comments STAIN ACCEPTABILITY (test code = STN ACCEPTABLE) STAIN ACCEPTABLE HYPOCHROMIA (test code = HYPO) 1+ PLATELET ESTIMATE (test code = PLTEST) ADEQUATE PLATELET MORPHOLOGY (test code = PLTMORPH) NORMAL [id number] 11:41:00* Test Item Value Reference Range Interpretation Comments GLUBED (test code = GLUBED) 228 mg/dL 74-106 H Performed by certified cream separator operator at [facility] BASIC METABOLIC [id number] 11:00:00* Test Item Value Reference Range Interpretation Comments SODIUM (test code = NA) 139 mmol/L 136-145 N POTASSIUM (test code = K) 4.4 mmol/L 3.5-5.1 N CHLORIDE (test code = CL) 102.0 mmol/L 98-107 N CARBON DIOXIDE (test code = CO2) 30.0 mmol/L 21-32 N ANION GAP (test code = GAP) 11.4 10-20 N GLUCOSE (test code = GLU) 206 mg/dL 74-106 H BLOOD UREA NITROGEN (test code = BUN) 22 mg/dL 7-18 H GLOMERULAR FILTRATION RATE (test code = GFR) 10 mL/min >=60 Estimated GFR by using Modified MDRD formula.Chronic kidney disease is defined as either kidney damageor GFR <60 mL/min/1.73 m2 for >3 months. CREATININE (test code = CREAT) 5.60 mg/dL 0.7-1.3 H BUN/CREATININE RATIO (test code = BUN/CREA) 3.9 10-20 L CALCIUM (test code = CA) 8.5 mg/dL 8.5-10.1 N BILCBC W/AUTO [id number] 10:59:00* Test Item Value Reference Range Interpretation Comments WHITE BLOOD CELL (test code = WBC) 10.2 K/mm3 4.5-12.5 N RED BLOOD CELL (test code = RBC) 2.93 mill/mm3 4.0-5.8 L HEMOGLOBIN (test code = HGB) 8.6 gram/dL 13.0-17.5 L HEMATOCRIT (test code = HCT) 29.1 % 42.0-52.0 L MEAN CELL VOLUME (test code = MCV) 99.3 fL 80-98 H MEAN CELL HGB (test code = MCH) 29.4 picogram 27.0-33.0 N MEAN CELL HGB CONCETRATION (test code = MCHC) 29.6 gram/dL 33.0-36. 0 L RED CELL DISTRIBUTION WIDTH (test code = RDW) 16.1 % 11.6-16. 2 N RED CELL DISTRIBUTION WIDTH SD (test code = RDW-SD) 58.2 fL 37 .0-51.0 H PLATELET COUNT (test code = PLT) 193 K/mm3 150-450 N MEAN PLATELET VOLUME (test code = MPV) 11.8 fL 6.7-11.0 H NEUTROPHIL % (test code = NT%) 67.4 % 39.0-69.0 N IMMATURE GRANULOCYTE % (test code = IG%) 0.6 % 0.0-5.0 N LYMPHOCYTE % (test code = LY%) 15.1 % 25.0-55.0 L MONOCYTE % (test code = MO%) 10.7 % 0.0-10.0 H EOSINOPHIL % (test code = EO%) 5.5 % 0.0-5.0 H BASOPHIL % (test code = BA%) 0.7 % 0.0-1.0 N NUCLEATED RBC % (test code = NRBC%) 0.0 % 0-0 N NEUTROPHIL # (test code = NT#) 6.85 K/mm3 1.8-7.7 N IMMATURE GRANULOCYTE # (test code = IG#) 0.06 x10 3/uL 0-0.03 H LYMPHOCYTE # (test code = LY#) 1.54 K/mm3 1.0-5.0 N MONOCYTE # (test code = MO#) 1.09 K/mm3 0-0.8 H EOSINOPHIL # (test code = EO#) 0.56 K/mm3 0.0-0.5 H BASOPHIL # (test code = BA#) 0.07 K/mm3 0.0-0.2 N NUCLEATED RBC # (test code = NRBC#) 0.00 K/mm3 0.0-0.1 N MANUAL DIFF REQUIRED (test code = MDIFF) NO, ONLY SCAN NEEDED DIFFERENTIAL [id number] 10:59:00* Test Item Value Reference Range Interpretation Comments STAIN ACCEPTABILITY (test code = STN ACCEPTABLE) CABOT RINGS (test code = CAB) MORPHOLOGY COMMENT (test code = MOC) PLATELET ESTIMATE (test code = PLTEST) PLATELET MORPHOLOGY (test code = PLTMORPH) CBC W/AUTO [id number] 10:59:00* Test Item Value Reference Range Interpretation Comments WHITE BLOOD CELL (test code = WBC) 10.2 K/mm3 4.5-12.5 N RED BLOOD CELL (test code = RBC) 2.93 mill/mm3 4.0-5.8 L HEMOGLOBIN (test code = HGB) 8.6 gram/dL 13.0-17.5 L HEMATOCRIT (test code = HCT) 29.1 % 42.0-52.0 L MEAN CELL VOLUME (test code = MCV) 99.3 fL 80-98 H MEAN CELL HGB (test code = MCH) 29.4 picogram 27.0-33.0 N MEAN CELL HGB CONCETRATION (test code = MCHC) 29.6 gram/dL 33.0-36. 0 L RED CELL DISTRIBUTION WIDTH (test code = RDW) 16.1 % 11.6-16. 2 N RED CELL DISTRIBUTION WIDTH SD (test code = RDW-SD) 58.2 fL 37 .0-51.0 H PLATELET COUNT (test code = PLT) 193 K/mm3 150-450 N MEAN PLATELET VOLUME (test code = MPV) 11.8 fL 6.7-11.0 H NEUTROPHIL % (test code = NT%) 67.4 % 39.0-69.0 N IMMATURE GRANULOCYTE % (test code = IG%) 0.6 % 0.0-5.0 N LYMPHOCYTE % (test code = LY%) 15.1 % 25.0-55.0 L MONOCYTE % (test code = MO%) 10.7 % 0.0-10.0 H EOSINOPHIL % (test code = EO%) 5.5 % 0.0-5.0 H BASOPHIL % (test code = BA%) 0.7 % 0.0-1.0 N NUCLEATED RBC % (test code = NRBC%) 0.0 % 0-0 N NEUTROPHIL # (test code = NT#) 6.85 K/mm3 1.8-7.7 N IMMATURE GRANULOCYTE # (test code = IG#) 0.06 x10 3/uL 0-0.03 H LYMPHOCYTE # (test code = LY#) 1.54 K/mm3 1.0-5.0 N MONOCYTE # (test code = MO#) 1.09 K/mm3 0-0.8 H EOSINOPHIL # (test code = EO#) 0.56 K/mm3 0.0-0.5 H BASOPHIL # (test code = BA#) 0.07 K/mm3 0.0-0.2 N NUCLEATED RBC # (test code = NRBC#) 0.00 K/mm3 0.0-0.1 N MANUAL DIFF REQUIRED (test code = MDIFF) NO, ONLY SCAN NEEDED DIFFERENTIAL [id number] 10:59:00* Test Item Value Reference Range Interpretation Comments STAIN ACCEPTABILITY (test code = STN ACCEPTABLE) MORPHOLOGY COMMENT (test code = MOC) PLATELET ESTIMATE (test code = PLTEST) PLATELET MORPHOLOGY (test code = PLTMORPH) CBC W/AUTO [id number] 10:58:00* Test Item Value Reference Range Interpretation Comments WHITE BLOOD CELL (test code = WBC) 10.2 K/mm3 4.5-12.5 N RED BLOOD CELL (test code = RBC) 2.93 mill/mm3 4.0-5.8 L HEMOGLOBIN (test code = HGB) 8.6 gram/dL 13.0-17.5 L HEMATOCRIT (test code = HCT) 29.1 % 42.0-52.0 L MEAN CELL VOLUME (test code = MCV) 99.3 fL 80-98 H MEAN CELL HGB (test code = MCH) 29.4 picogram 27.0-33.0 N MEAN CELL HGB CONCETRATION (test code = MCHC) 29.6 gram/dL 33.0-36. 0 L RED CELL DISTRIBUTION WIDTH (test code = RDW) 16.1 % 11.6-16. 2 N RED CELL DISTRIBUTION WIDTH SD (test code = RDW-SD) 58.2 fL 37 .0-51.0 H PLATELET COUNT (test code = PLT) 193 K/mm3 150-450 N MEAN PLATELET VOLUME (test code = MPV) 11.8 fL 6.7-11.0 H NEUTROPHIL % (test code = NT%) 67.4 % 39.0-69.0 N IMMATURE GRANULOCYTE % (test code = IG%) 0.6 % 0.0-5.0 N LYMPHOCYTE % (test code = LY%) 15.1 % 25.0-55.0 L MONOCYTE % (test code = MO%) 10.7 % 0.0-10.0 H EOSINOPHIL % (test code = EO%) 5.5 % 0.0-5.0 H BASOPHIL % (test code = BA%) 0.7 % 0.0-1.0 N NUCLEATED RBC % (test code = NRBC%) 0.0 % 0-0 N NEUTROPHIL # (test code = NT#) 6.85 K/mm3 1.8-7.7 N IMMATURE GRANULOCYTE # (test code = IG#) 0.06 x10 3/uL 0-0.03 H LYMPHOCYTE # (test code = LY#) 1.54 K/mm3 1.0-5.0 N MONOCYTE # (test code = MO#) 1.09 K/mm3 0-0.8 H EOSINOPHIL # (test code = EO#) 0.56 K/mm3 0.0-0.5 H BASOPHIL # (test code = BA#) 0.07 K/mm3 0.0-0.2 N NUCLEATED RBC # (test code = NRBC#) 0.00 K/mm3 0.0-0.1 N MANUAL DIFF REQUIRED (test code = MDIFF) NO, ONLY SCAN NEEDED DIFFERENTIAL [id number] 10:58:00* Test Item Value Reference Range Interpretation Comments STAIN ACCEPTABILITY (test code = STN ACCEPTABLE) CABOT RINGS (test code = CAB) MORPHOLOGY COMMENT (test code = MOC) PLATELET ESTIMATE (test code = PLTEST) PLATELET MORPHOLOGY (test code = PLTMORPH) CBC W/AUTO [id number] 10:58:00* Test Item Value Reference Range Interpretation Comments WHITE BLOOD CELL (test code = WBC) 10.2 K/mm3 4.5-12.5 N RED BLOOD CELL (test code = RBC) 2.93 mill/mm3 4.0-5.8 L HEMOGLOBIN (test code = HGB) 8.6 gram/dL 13.0-17.5 L HEMATOCRIT (test code = HCT) 29.1 % 42.0-52.0 L MEAN CELL VOLUME (test code = MCV) 99.3 fL 80-98 H MEAN CELL HGB (test code = MCH) 29.4 picogram 27.0-33.0 N MEAN CELL HGB CONCETRATION (test code = MCHC) 29.6 gram/dL 33.0-36. 0 L RED CELL DISTRIBUTION WIDTH (test code = RDW) 16.1 % 11.6-16. 2 N RED CELL DISTRIBUTION WIDTH SD (test code = RDW-SD) 58.2 fL 37 .0-51.0 H PLATELET COUNT (test code = PLT) 193 K/mm3 150-450 N MEAN PLATELET VOLUME (test code = MPV) 11.8 fL 6.7-11.0 H NEUTROPHIL % (test code = NT%) 67.4 % 39.0-69.0 N IMMATURE GRANULOCYTE % (test code = IG%) 0.6 % 0.0-5.0 N LYMPHOCYTE % (test code = LY%) 15.1 % 25.0-55.0 L MONOCYTE % (test code = MO%) 10.7 % 0.0-10.0 H EOSINOPHIL % (test code = EO%) 5.5 % 0.0-5.0 H BASOPHIL % (test code = BA%) 0.7 % 0.0-1.0 N NUCLEATED RBC % (test code = NRBC%) 0.0 % 0-0 N NEUTROPHIL # (test code = NT#) 6.85 K/mm3 1.8-7.7 N IMMATURE GRANULOCYTE # (test code = IG#) 0.06 x10 3/uL 0-0.03 H LYMPHOCYTE # (test code = LY#) 1.54 K/mm3 1.0-5.0 N MONOCYTE # (test code = MO#) 1.09 K/mm3 0-0.8 H EOSINOPHIL # (test code = EO#) 0.56 K/mm3 0.0-0.5 H BASOPHIL # (test code = BA#) 0.07 K/mm3 0.0-0.2 N NUCLEATED RBC # (test code = NRBC#) 0.00 K/mm3 0.0-0.1 N MANUAL DIFF REQUIRED (test code = MDIFF) NO, ONLY SCAN NEEDED DIFFERENTIAL [id number] 10:58:00* Test Item Value Reference Range Interpretation Comments STAIN ACCEPTABILITY (test code = STN ACCEPTABLE) CABOT RINGS (test code = CAB) MORPHOLOGY COMMENT (test code = MOC) PLATELET ESTIMATE (test code = PLTEST) PLATELET MORPHOLOGY (test code = PLTMORPH) [id number] 08:16:00* Test Item Value Reference Range Interpretation Comments GLUBED (test code = GLUBED) 207 mg/dL 74-106 H Performed by certified cream separator operator at [facility] PROTHROMBIN [id number] 06:15:00* Test Item Value Reference Range Interpretation Comments PROTHROMBIN TIME PATIENT (test code = PTP) 23.1 seconds 9.0-14.0 H INTERNATIONAL NORMAL RATIO (test code = INR) 2.0 0.8-1.2 H The therapeutic range for oral anticoagulant therapy formost indications is an international normalized ratio (INR)of between 2.0 and 3.0. The recommended therapeutic INRrange for various clinical situations is listed below: Clinical Situation INR range Pulmonary e mbolism treatment (2.0-3.0)Venous thrombosis treatmentVenous thrombosis prophylaxis (high risk surgery)Prevention of systemic embolism from: Acute myocardial infarction Valvular heart disease Atrial fibrillation Mechanical prosthetic heart valves (2.5-3.5) IS PATIENT ON ANTICOAGULANTS? YLIST ANTICOAGULANTS [id number] 20:32:00* Test Item Value Reference Range Interpretation Comments GLUBED (test code = GLUBED) 181 mg/dL 74-106 H Performed by certified cream separator operator at [facility] [id number] 16:24:00* Test Item Value Reference Range Interpretation Comments GLUBED (test code = GLUBED) 151 mg/dL 74-106 H Performed by certified cream separator operator at [facility] [id number] 11:37:00* Test Item Value Reference Range Interpretation Comments GLUBED (test code = GLUBED) 109 mg/dL 74-106 H Performed by certified cream separator operator at [facility] [id number] 07:40:00* Test Item Value Reference Range Interpretation Comments GLUBED (test code = GLUBED) 200 mg/dL 74-106 H Performed by certified cream separator operator at [facility] PROTHROMBIN [id number] 07:18:00* Test Item Value Reference Range Interpretation Comments PROTHROMBIN TIME PATIENT (test code = PTP) 26.3 seconds 9.0-14.0 H INTERNATIONAL NORMAL RATIO (test code = INR) 2.2 0.8-1.2 H The therapeutic range for oral anticoagulant therapy formost indications is an international normalized ratio (INR)of between 2.0 and 3.0. The recommended therapeutic INRrange for various clinical situations is listed below: Clinical Situation INR range Pulmonary e mbolism treatment (2.0-3.0)Venous thrombosis treatmentVenous thrombosis prophylaxis (high risk surgery)Prevention of systemic embolism from: Acute myocardial infarction Valvular heart disease Atrial fibrillation Mechanical prosthetic heart valves (2.5-3.5) IS PATIENT ON ANTICOAGULANTS? YLIST ANTICOAGULANTS [id number] 21:28:00* Test Item Value Reference Range Interpretation Comments GLUBED (test code = GLUBED) 139 mg/dL 74-106 H Performed by certified cream separator operator at [facility] [id number] 16:43:00* Test Item Value Reference Range Interpretation Comments GLUBED (test code = GLUBED) 115 mg/dL 74-106 H Performed by certified cream separator operator at [facility] CBC W/AUTO [id number] 13:34:00* Test Item Value Reference Range Interpretation Comments WHITE BLOOD CELL (test code = WBC) 12.1 K/mm3 4.5-12.5 N RED BLOOD CELL (test code = RBC) 3.30 mill/mm3 4.0-5.8 L HEMOGLOBIN (test code = HGB) 9.6 gram/dL 13.0-17.5 L HEMATOCRIT (test code = HCT) 32.4 % 42.0-52.0 L MEAN CELL VOLUME (test code = MCV) 98.2 fL 80-98 H MEAN CELL HGB (test code = MCH) 29.1 picogram 27.0-33.0 N MEAN CELL HGB CONCETRATION (test code = MCHC) 29.6 gram/dL 33.0-36. 0 L RED CELL DISTRIBUTION WIDTH (test code = RDW) 15.8 % 11.6-16. 2 N RED CELL DISTRIBUTION WIDTH SD (test code = RDW-SD) 56.6 fL 37 .0-51.0 H PLATELET COUNT (test code = PLT) 224 K/mm3 150-450 N MEAN PLATELET VOLUME (test code = MPV) 9.8 fL 6.7-11.0 N NEUTROPHIL % (test code = NT%) 73.3 % 39.0-69.0 H IMMATURE GRANULOCYTE % (test code = IG%) 0.9 % 0.0-5.0 N LYMPHOCYTE % (test code = LY%) 11.8 % 25.0-55.0 L MONOCYTE % (test code = MO%) 9.5 % 0.0-10.0 N EOSINOPHIL % (test code = EO%) 3.8 % 0.0-5.0 N BASOPHIL % (test code = BA%) 0.7 % 0.0-1.0 N NUCLEATED RBC % (test code = NRBC%) 0.0 % 0-0 N NEUTROPHIL # (test code = NT#) 8.84 K/mm3 1.8-7.7 H IMMATURE GRANULOCYTE # (test code = IG#) 0.11 x10 3/uL 0-0.03 H LYMPHOCYTE # (test code = LY#) 1.42 K/mm3 1.0-5.0 N MONOCYTE # (test code = MO#) 1.15 K/mm3 0-0.8 H EOSINOPHIL # (test code = EO#) 0.46 K/mm3 0.0-0.5 N BASOPHIL # (test code = BA#) 0.08 K/mm3 0.0-0.2 N NUCLEATED RBC # (test code = NRBC#) 0.00 K/mm3 0.0-0.1 N MANUAL DIFF REQUIRED (test code = MDIFF) NO, ONLY SCAN NEEDED DIFFERENTIAL [id number] 13:34:00* Test Item Value Reference Range Interpretation Comments STAIN ACCEPTABILITY (test code = STN ACCEPTABLE) STAIN ACCEPTABLE POLYCHROMASIA (test code = POLC) 1+ BASOPHILIC STIPPLING (test code = STP) 1+ ANISOCYTOSIS (test code = ANISO) 1+ ELLIPTOCYTES (test code = ELL) 1+ PLATELET ESTIMATE (test code = PLTEST) ADEQUATE PLATELET MORPHOLOGY (test code = PLTMORPH) NORMAL BASIC METABOLIC [id number] 13:28:00* Test Item Value Reference Range Interpretation Comments SODIUM (test code = NA) 137 mmol/L 136-145 N POTASSIUM (test code = K) 4.5 mmol/L 3.5-5.1 N CHLORIDE (test code = CL) 100.0 mmol/L 98-107 N CARBON DIOXIDE (test code = CO2) 25.0 mmol/L 21-32 N ANION GAP (test code = GAP) 16.5 10-20 N GLUCOSE (test code = GLU) 267 mg/dL 74-106 H BLOOD UREA NITROGEN (test code = BUN) 26 mg/dL 7-18 H GLOMERULAR FILTRATION RATE (test code = GFR) 8 mL/min >=60 Estimated GFR by using Modified MDRD formula.Chronic kidney disease is defined as either kidney damageor GFR <60 mL/min/1.73 m2 for >3 months. CREATININE (test code = CREAT) 6.80 mg/dL 0.7-1.3 H BUN/CREATININE RATIO (test code = BUN/CREA) 3.8 10-20 L CALCIUM (test code = CA) 8.7 mg/dL 8.5-10.1 N CBC W/AUTO [id number] 12:57:00* Test Item Value Reference Range Interpretation Comments WHITE BLOOD CELL (test code = WBC) 12.1 K/mm3 4.5-12.5 N RED BLOOD CELL (test code = RBC) 3.30 mill/mm3 4.0-5.8 L HEMOGLOBIN (test code = HGB) 9.6 gram/dL 13.0-17.5 L HEMATOCRIT (test code = HCT) 32.4 % 42.0-52.0 L MEAN CELL VOLUME (test code = MCV) 98.2 fL 80-98 H MEAN CELL HGB (test code = MCH) 29.1 picogram 27.0-33.0 N MEAN CELL HGB CONCETRATION (test code = MCHC) 29.6 gram/dL 33.0-36. 0 L RED CELL DISTRIBUTION WIDTH (test code = RDW) 15.8 % 11.6-16. 2 N RED CELL DISTRIBUTION WIDTH SD (test code = RDW-SD) 56.6 fL 37 .0-51.0 H PLATELET COUNT (test code = PLT) 224 K/mm3 150-450 N MEAN PLATELET VOLUME (test code = MPV) 9.8 fL 6.7-11.0 N NEUTROPHIL % (test code = NT%) 73.3 % 39.0-69.0 H IMMATURE GRANULOCYTE % (test code = IG%) 0.9 % 0.0-5.0 N LYMPHOCYTE % (test code = LY%) 11.8 % 25.0-55.0 L MONOCYTE % (test code = MO%) 9.5 % 0.0-10.0 N EOSINOPHIL % (test code = EO%) 3.8 % 0.0-5.0 N BASOPHIL % (test code = BA%) 0.7 % 0.0-1.0 N NUCLEATED RBC % (test code = NRBC%) 0.0 % 0-0 N NEUTROPHIL # (test code = NT#) 8.84 K/mm3 1.8-7.7 H IMMATURE GRANULOCYTE # (test code = IG#) 0.11 x10 3/uL 0-0.03 H LYMPHOCYTE # (test code = LY#) 1.42 K/mm3 1.0-5.0 N MONOCYTE # (test code = MO#) 1.15 K/mm3 0-0.8 H EOSINOPHIL # (test code = EO#) 0.46 K/mm3 0.0-0.5 N BASOPHIL # (test code = BA#) 0.08 K/mm3 0.0-0.2 N NUCLEATED RBC # (test code = NRBC#) 0.00 K/mm3 0.0-0.1 N MANUAL DIFF REQUIRED (test code = MDIFF) NO, ONLY SCAN NEEDED DIFFERENTIAL [id number] 12:57:00* Test Item Value Reference Range Interpretation Comments STAIN ACCEPTABILITY (test code = STN ACCEPTABLE) CABOT RINGS (test code = CAB) MORPHOLOGY COMMENT (test code = MOC) PLATELET ESTIMATE (test code = PLTEST) PLATELET MORPHOLOGY (test code = PLTMORPH) CBC W/AUTO [id number] 12:57:00* Test Item Value Reference Range Interpretation Comments WHITE BLOOD CELL (test code = WBC) 12.1 K/mm3 4.5-12.5 N RED BLOOD CELL (test code = RBC) 3.30 mill/mm3 4.0-5.8 L HEMOGLOBIN (test code = HGB) 9.6 gram/dL 13.0-17.5 L HEMATOCRIT (test code = HCT) 32.4 % 42.0-52.0 L MEAN CELL VOLUME (test code = MCV) 98.2 fL 80-98 H MEAN CELL HGB (test code = MCH) 29.1 picogram 27.0-33.0 N MEAN CELL HGB CONCETRATION (test code = MCHC) 29.6 gram/dL 33.0-36. 0 L RED CELL DISTRIBUTION WIDTH (test code = RDW) 15.8 % 11.6-16. 2 N RED CELL DISTRIBUTION WIDTH SD (test code = RDW-SD) 56.6 fL 37 .0-51.0 H PLATELET COUNT (test code = PLT) 224 K/mm3 150-450 N MEAN PLATELET VOLUME (test code = MPV) 9.8 fL 6.7-11.0 N NEUTROPHIL % (test code = NT%) 73.3 % 39.0-69.0 H IMMATURE GRANULOCYTE % (test code = IG%) 0.9 % 0.0-5.0 N LYMPHOCYTE % (test code = LY%) 11.8 % 25.0-55.0 L MONOCYTE % (test code = MO%) 9.5 % 0.0-10.0 N EOSINOPHIL % (test code = EO%) 3.8 % 0.0-5.0 N BASOPHIL % (test code = BA%) 0.7 % 0.0-1.0 N NUCLEATED RBC % (test code = NRBC%) 0.0 % 0-0 N NEUTROPHIL # (test code = NT#) 8.84 K/mm3 1.8-7.7 H IMMATURE GRANULOCYTE # (test code = IG#) 0.11 x10 3/uL 0-0.03 H LYMPHOCYTE # (test code = LY#) 1.42 K/mm3 1.0-5.0 N MONOCYTE # (test code = MO#) 1.15 K/mm3 0-0.8 H EOSINOPHIL # (test code = EO#) 0.46 K/mm3 0.0-0.5 N BASOPHIL # (test code = BA#) 0.08 K/mm3 0.0-0.2 N NUCLEATED RBC # (test code = NRBC#) 0.00 K/mm3 0.0-0.1 N MANUAL DIFF REQUIRED (test code = MDIFF) NO, ONLY SCAN NEEDED DIFFERENTIAL [id number] 12:57:00* Test Item Value Reference Range Interpretation Comments STAIN ACCEPTABILITY (test code = STN ACCEPTABLE) CABOT RINGS (test code = CAB) MORPHOLOGY COMMENT (test code = MOC) PLATELET ESTIMATE (test code = PLTEST) PLATELET MORPHOLOGY (test code = PLTMORPH) CBC W/AUTO [id number] 12:57:00* Test Item Value Reference Range Interpretation Comments WHITE BLOOD CELL (test code = WBC) 12.1 K/mm3 4.5-12.5 N RED BLOOD CELL (test code = RBC) 3.30 mill/mm3 4.0-5.8 L HEMOGLOBIN (test code = HGB) 9.6 gram/dL 13.0-17.5 L HEMATOCRIT (test code = HCT) 32.4 % 42.0-52.0 L MEAN CELL VOLUME (test code = MCV) 98.2 fL 80-98 H MEAN CELL HGB (test code = MCH) 29.1 picogram 27.0-33.0 N MEAN CELL HGB CONCETRATION (test code = MCHC) 29.6 gram/dL 33.0-36. 0 L RED CELL DISTRIBUTION WIDTH (test code = RDW) 15.8 % 11.6-16. 2 N RED CELL DISTRIBUTION WIDTH SD (test code = RDW-SD) 56.6 fL 37 .0-51.0 H PLATELET COUNT (test code = PLT) 224 K/mm3 150-450 N MEAN PLATELET VOLUME (test code = MPV) 9.8 fL 6.7-11.0 N NEUTROPHIL % (test code = NT%) 73.3 % 39.0-69.0 H IMMATURE GRANULOCYTE % (test code = IG%) 0.9 % 0.0-5.0 N LYMPHOCYTE % (test code = LY%) 11.8 % 25.0-55.0 L MONOCYTE % (test code = MO%) 9.5 % 0.0-10.0 N EOSINOPHIL % (test code = EO%) 3.8 % 0.0-5.0 N BASOPHIL % (test code = BA%) 0.7 % 0.0-1.0 N NUCLEATED RBC % (test code = NRBC%) 0.0 % 0-0 N NEUTROPHIL # (test code = NT#) 8.84 K/mm3 1.8-7.7 H IMMATURE GRANULOCYTE # (test code = IG#) 0.11 x10 3/uL 0-0.03 H LYMPHOCYTE # (test code = LY#) 1.42 K/mm3 1.0-5.0 N MONOCYTE # (test code = MO#) 1.15 K/mm3 0-0.8 H EOSINOPHIL # (test code = EO#) 0.46 K/mm3 0.0-0.5 N BASOPHIL # (test code = BA#) 0.08 K/mm3 0.0-0.2 N NUCLEATED RBC # (test code = NRBC#) 0.00 K/mm3 0.0-0.1 N MANUAL DIFF REQUIRED (test code = MDIFF) NO, ONLY SCAN NEEDED DIFFERENTIAL [id number] 12:57:00* Test Item Value Reference Range Interpretation Comments STAIN ACCEPTABILITY (test code = STN ACCEPTABLE) MORPHOLOGY COMMENT (test code = MOC) PLATELET ESTIMATE (test code = PLTEST) PLATELET MORPHOLOGY (test code = PLTMORPH) CBC W/AUTO [id number] 12:57:00* Test Item Value Reference Range Interpretation Comments WHITE BLOOD CELL (test code = WBC) 12.1 K/mm3 4.5-12.5 N RED BLOOD CELL (test code = RBC) 3.30 mill/mm3 4.0-5.8 L HEMOGLOBIN (test code = HGB) 9.6 gram/dL 13.0-17.5 L HEMATOCRIT (test code = HCT) 32.4 % 42.0-52.0 L MEAN CELL VOLUME (test code = MCV) 98.2 fL 80-98 H MEAN CELL HGB (test code = MCH) 29.1 picogram 27.0-33.0 N MEAN CELL HGB CONCETRATION (test code = MCHC) 29.6 gram/dL 33.0-36. 0 L RED CELL DISTRIBUTION WIDTH (test code = RDW) 15.8 % 11.6-16. 2 N RED CELL DISTRIBUTION WIDTH SD (test code = RDW-SD) 56.6 fL 37 .0-51.0 H PLATELET COUNT (test code = PLT) 224 K/mm3 150-450 N MEAN PLATELET VOLUME (test code = MPV) 9.8 fL 6.7-11.0 N NEUTROPHIL % (test code = NT%) 73.3 % 39.0-69.0 H IMMATURE GRANULOCYTE % (test code = IG%) 0.9 % 0.0-5.0 N LYMPHOCYTE % (test code = LY%) 11.8 % 25.0-55.0 L MONOCYTE % (test code = MO%) 9.5 % 0.0-10.0 N EOSINOPHIL % (test code = EO%) 3.8 % 0.0-5.0 N BASOPHIL % (test code = BA%) 0.7 % 0.0-1.0 N NUCLEATED RBC % (test code = NRBC%) 0.0 % 0-0 N NEUTROPHIL # (test code = NT#) 8.84 K/mm3 1.8-7.7 H IMMATURE GRANULOCYTE # (test code = IG#) 0.11 x10 3/uL 0-0.03 H LYMPHOCYTE # (test code = LY#) 1.42 K/mm3 1.0-5.0 N MONOCYTE # (test code = MO#) 1.15 K/mm3 0-0.8 H EOSINOPHIL # (test code = EO#) 0.46 K/mm3 0.0-0.5 N BASOPHIL # (test code = BA#) 0.08 K/mm3 0.0-0.2 N NUCLEATED RBC # (test code = NRBC#) 0.00 K/mm3 0.0-0.1 N MANUAL DIFF REQUIRED (test code = MDIFF) NO, ONLY SCAN NEEDED DIFFERENTIAL [id number] 12:57:00* Test Item Value Reference Range Interpretation Comments STAIN ACCEPTABILITY (test code = STN ACCEPTABLE) CABOT RINGS (test code = CAB) MORPHOLOGY COMMENT (test code = MOC) PLATELET ESTIMATE (test code = PLTEST) PLATELET MORPHOLOGY (test code = PLTMORPH) [id number] 11:22:00* Test Item Value Reference Range Interpretation Comments GLUBED (test code = GLUBED) 259 mg/dL 74-106 H Performed by certified cream separator operator at [facility] [id number] 07:56:00* Test Item Value Reference Range Interpretation Comments GLUBED (test code = GLUBED) 213 mg/dL 74-106 H Performed by certified cream separator operator at [facility] PROTHROMBIN [id number] 07:05:00* Test Item Value Reference Range Interpretation Comments PROTHROMBIN TIME PATIENT (test code = PTP) 29.6 seconds 9.0-14.0 H INTERNATIONAL NORMAL RATIO (test code = INR) 2.5 0.8-1.2 H The therapeutic range for oral anticoagulant therapy form[employer] indications is an international normalized ratio (INR)of between 2.0 and 3.0. The recommended therapeutic INRrange for various clinical situations is listed below: Clinical Situation INR range Pulmonary e mbolism treatment (2.0-3.0)Venous thrombosis treatmentVenous thrombosis prophylaxis (high risk surgery)Prevention of systemic embolism from: Acute myocardial infarction Valvular heart disease Atrial fibrillation Mechanical prosthetic heart valves (2.5-3.5) IS PATIENT ON ANTICOAGULANTS? YLIST ANTICOAGULANTS [id number] 20:21:00* Test Item Value Reference Range Interpretation Comments GLUBED (test code = GLUBED) 160 mg/dL 74-106 H Performed by certified cream separator operator at [facility] [id number] 16:50:00* Test Item Value Reference Range Interpretation Comments GLUBED (test code = GLUBED) 82 mg/dL 74-106 N Performed by certified cream separator operator at [facility] [id number] 16:50:00* Test Item Value Reference Range Interpretation Comments GLUBED (test code = GLUBED) 66 mg/dL 74-106 L Performed by certified cream separator operator at [facility] COMPREHENSIVE METABOLIC [id number] 14:19:00* Test Item Value Reference Range Interpretation Comments SODIUM (test code = NA) 137 mmol/L 136-145 N POTASSIUM (test code = K) 4.4 mmol/L 3.5-5.1 N CHLORIDE (test code = CL) 100.0 mmol/L 98-107 N CARBON DIOXIDE (test code = CO2) 28.0 mmol/L 21-32 N ANION GAP (test code = GAP) 13.4 10-20 N GLUCOSE (test code = GLU) 166 mg/dL 74-106 H BLOOD UREA NITROGEN (test code = BUN) 21 mg/dL 7-18 H GLOMERULAR FILTRATION RATE (test code = GFR) 10 mL/min >=60 Estimated GFR by using Modified MDRD formula.Chronic kidney disease is defined as either kidney damageor GFR <60 mL/min/1.73 m2 for >3 months. CREATININE (test code = CREAT) 5.40 mg/dL 0.7-1.3 H BUN/CREATININE RATIO (test code = BUN/CREA) 3.9 10-20 L TOTAL PROTEIN (test code = PROT) 6.8 gram/dL 6.4-8.2 N ALBUMIN (test code = ALB) 3.1 g/dL 3.4-5.0 L GLOBULIN (test code = GLOB) 3.7 gram/dL 2.7-4.2 N ALBUMIN/GLOBULIN RATIO (test code = A/G) 0.8 0.75-1.50 N CALCIUM (test code = CA) 8.8 mg/dL 8.5-10.1 N BILIRUBIN TOTAL (test code = BILT) 0.40 mg/dL 0.0-1.0 N SGOT/AST (test code = AST) 15 IUnit/L 15-37 N SGPT/ALT (test code = ALT) 29 IUnit/L 12-78 N ALKALINE PHOSPHATASE TOTAL (test code = ALKP) 137 IUnit/L 45-117 H Note change in reference range due to change in reagent. CBC W/AUTO [id number] 12:49:00* Test Item Value Reference Range Interpretation Comments WHITE BLOOD CELL (test code = WBC) 11.8 K/mm3 4.5-12.5 N RED BLOOD CELL (test code = RBC) 3.36 mill/mm3 4.0-5.8 L HEMOGLOBIN (test code = HGB) 9.6 gram/dL 13.0-17.5 L HEMATOCRIT (test code = HCT) 32.9 % 42.0-52.0 L MEAN CELL VOLUME (test code = MCV) 97.9 fL 80-98 N MEAN CELL HGB (test code = MCH) 28.6 picogram 27.0-33.0 N MEAN CELL HGB CONCETRATION (test code = MCHC) 29.2 gram/dL 33.0-36. 0 L RED CELL DISTRIBUTION WIDTH (test code = RDW) 15.7 % 11.6-16. 2 N RED CELL DISTRIBUTION WIDTH SD (test code = RDW-SD) 55.9 fL 37 .0-51.0 H PLATELET COUNT (test code = PLT) 217 K/mm3 150-450 N MEAN PLATELET VOLUME (test code = MPV) 10.2 fL 6.7-11.0 N NEUTROPHIL % (test code = NT%) 71.3 % 39.0-69.0 H IMMATURE GRANULOCYTE % (test code = IG%) 0.8 % 0.0-5.0 N LYMPHOCYTE % (test code = LY%) 12.8 % 25.0-55.0 L MONOCYTE % (test code = MO%) 9.7 % 0.0-10.0 N EOSINOPHIL % (test code = EO%) 4.7 % 0.0-5.0 N BASOPHIL % (test code = BA%) 0.7 % 0.0-1.0 N NUCLEATED RBC % (test code = NRBC%) 0.0 % 0-0 N NEUTROPHIL # (test code = NT#) 8.40 K/mm3 1.8-7.7 H IMMATURE GRANULOCYTE # (test code = IG#) 0.10 x10 3/uL 0-0.03 H LYMPHOCYTE # (test code = LY#) 1.51 K/mm3 1.0-5.0 N MONOCYTE # (test code = MO#) 1.15 K/mm3 0-0.8 H EOSINOPHIL # (test code = EO#) 0.56 K/mm3 0.0-0.5 H BASOPHIL # (test code = BA#) 0.08 K/mm3 0.0-0.2 N NUCLEATED RBC # (test code = NRBC#) 0.00 K/mm3 0.0-0.1 N MANUAL DIFF REQUIRED (test code = MDIFF) NO, ONLY SCAN NEEDED DIFFERENTIAL [id number] 12:49:00* Test Item Value Reference Range Interpretation Comments STAIN ACCEPTABILITY (test code = STN ACCEPTABLE) STAIN ACCEPTABLE PLATELET ESTIMATE (test code = PLTEST) ADEQUATE PLATELET MORPHOLOGY (test code = PLTMORPH) SIZE VARIABLE CBC W/AUTO [id number] 12:19:00* Test Item Value Reference Range Interpretation Comments WHITE BLOOD CELL (test code = WBC) 11.8 K/mm3 4.5-12.5 N RED BLOOD CELL (test code = RBC) 3.36 mill/mm3 4.0-5.8 L HEMOGLOBIN (test code = HGB) 9.6 gram/dL 13.0-17.5 L HEMATOCRIT (test code = HCT) 32.9 % 42.0-52.0 L MEAN CELL VOLUME (test code = MCV) 97.9 fL 80-98 N MEAN CELL HGB (test code = MCH) 28.6 picogram 27.0-33.0 N MEAN CELL HGB CONCETRATION (test code = MCHC) 29.2 gram/dL 33.0-36. 0 L RED CELL DISTRIBUTION WIDTH (test code = RDW) 15.7 % 11.6-16. 2 N RED CELL DISTRIBUTION WIDTH SD (test code = RDW-SD) 55.9 fL 37 .0-51.0 H PLATELET COUNT (test code = PLT) 217 K/mm3 150-450 N MEAN PLATELET VOLUME (test code = MPV) 10.2 fL 6.7-11.0 N NEUTROPHIL % (test code = NT%) 71.3 % 39.0-69.0 H IMMATURE GRANULOCYTE % (test code = IG%) 0.8 % 0.0-5.0 N LYMPHOCYTE % (test code = LY%) 12.8 % 25.0-55.0 L MONOCYTE % (test code = MO%) 9.7 % 0.0-10.0 N EOSINOPHIL % (test code = EO%) 4.7 % 0.0-5.0 N BASOPHIL % (test code = BA%) 0.7 % 0.0-1.0 N NUCLEATED RBC % (test code = NRBC%) 0.0 % 0-0 N NEUTROPHIL # (test code = NT#) 8.40 K/mm3 1.8-7.7 H IMMATURE GRANULOCYTE # (test code = IG#) 0.10 x10 3/uL 0-0.03 H LYMPHOCYTE # (test code = LY#) 1.51 K/mm3 1.0-5.0 N MONOCYTE # (test code = MO#) 1.15 K/mm3 0-0.8 H EOSINOPHIL # (test code = EO#) 0.56 K/mm3 0.0-0.5 H BASOPHIL # (test code = BA#) 0.08 K/mm3 0.0-0.2 N NUCLEATED RBC # (test code = NRBC#) 0.00 K/mm3 0.0-0.1 N MANUAL DIFF REQUIRED (test code = MDIFF) NO, ONLY SCAN NEEDED DIFFERENTIAL [id number] 12:19:00* Test Item Value Reference Range Interpretation Comments STAIN ACCEPTABILITY (test code = STN ACCEPTABLE) CABOT RINGS (test code = CAB) MORPHOLOGY COMMENT (test code = MOC) PLATELET ESTIMATE (test code = PLTEST) PLATELET MORPHOLOGY (test code = PLTMORPH) CBC W/AUTO [id number] 12:19:00* Test Item Value Reference Range Interpretation Comments WHITE BLOOD CELL (test code = WBC) 11.8 K/mm3 4.5-12.5 N RED BLOOD CELL (test code = RBC) 3.36 mill/mm3 4.0-5.8 L HEMOGLOBIN (test code = HGB) 9.6 gram/dL 13.0-17.5 L HEMATOCRIT (test code = HCT) 32.9 % 42.0-52.0 L MEAN CELL VOLUME (test code = MCV) 97.9 fL 80-98 N MEAN CELL HGB (test code = MCH) 28.6 picogram 27.0-33.0 N MEAN CELL HGB CONCETRATION (test code = MCHC) 29.2 gram/dL 33.0-36. 0 L RED CELL DISTRIBUTION WIDTH (test code = RDW) 15.7 % 11.6-16. 2 N RED CELL DISTRIBUTION WIDTH SD (test code = RDW-SD) 55.9 fL 37 .0-51.0 H PLATELET COUNT (test code = PLT) 217 K/mm3 150-450 N MEAN PLATELET VOLUME (test code = MPV) 10.2 fL 6.7-11.0 N NEUTROPHIL % (test code = NT%) 71.3 % 39.0-69.0 H IMMATURE GRANULOCYTE % (test code = IG%) 0.8 % 0.0-5.0 N LYMPHOCYTE % (test code = LY%) 12.8 % 25.0-55.0 L MONOCYTE % (test code = MO%) 9.7 % 0.0-10.0 N EOSINOPHIL % (test code = EO%) 4.7 % 0.0-5.0 N BASOPHIL % (test code = BA%) 0.7 % 0.0-1.0 N NUCLEATED RBC % (test code = NRBC%) 0.0 % 0-0 N NEUTROPHIL # (test code = NT#) 8.40 K/mm3 1.8-7.7 H IMMATURE GRANULOCYTE # (test code = IG#) 0.10 x10 3/uL 0-0.03 H LYMPHOCYTE # (test code = LY#) 1.51 K/mm3 1.0-5.0 N MONOCYTE # (test code = MO#) 1.15 K/mm3 0-0.8 H EOSINOPHIL # (test code = EO#) 0.56 K/mm3 0.0-0.5 H BASOPHIL # (test code = BA#) 0.08 K/mm3 0.0-0.2 N NUCLEATED RBC # (test code = NRBC#) 0.00 K/mm3 0.0-0.1 N MANUAL DIFF REQUIRED (test code = MDIFF) NO, ONLY SCAN NEEDED DIFFERENTIAL [id number] 12:19:00* Test Item Value Reference Range Interpretation Comments STAIN ACCEPTABILITY (test code = STN ACCEPTABLE) CABOT RINGS (test code = CAB) MORPHOLOGY COMMENT (test code = MOC) PLATELET ESTIMATE (test code = PLTEST) PLATELET MORPHOLOGY (test code = PLTMORPH) CBC W/AUTO [id number] 12:19:00* Test Item Value Reference Range Interpretation Comments WHITE BLOOD CELL (test code = WBC) 11.8 K/mm3 4.5-12.5 N RED BLOOD CELL (test code = RBC) 3.36 mill/mm3 4.0-5.8 L HEMOGLOBIN (test code = HGB) 9.6 gram/dL 13.0-17.5 L HEMATOCRIT (test code = HCT) 32.9 % 42.0-52.0 L MEAN CELL VOLUME (test code = MCV) 97.9 fL 80-98 N MEAN CELL HGB (test code = MCH) 28.6 picogram 27.0-33.0 N MEAN CELL HGB CONCETRATION (test code = MCHC) 29.2 gram/dL 33.0-36. 0 L RED CELL DISTRIBUTION WIDTH (test code = RDW) 15.7 % 11.6-16. 2 N RED CELL DISTRIBUTION WIDTH SD (test code = RDW-SD) 55.9 fL 37 .0-51.0 H PLATELET COUNT (test code = PLT) 217 K/mm3 150-450 N MEAN PLATELET VOLUME (test code = MPV) 10.2 fL 6.7-11.0 N NEUTROPHIL % (test code = NT%) 71.3 % 39.0-69.0 H IMMATURE GRANULOCYTE % (test code = IG%) 0.8 % 0.0-5.0 N LYMPHOCYTE % (test code = LY%) 12.8 % 25.0-55.0 L MONOCYTE % (test code = MO%) 9.7 % 0.0-10.0 N EOSINOPHIL % (test code = EO%) 4.7 % 0.0-5.0 N BASOPHIL % (test code = BA%) 0.7 % 0.0-1.0 N NUCLEATED RBC % (test code = NRBC%) 0.0 % 0-0 N NEUTROPHIL # (test code = NT#) 8.40 K/mm3 1.8-7.7 H IMMATURE GRANULOCYTE # (test code = IG#) 0.10 x10 3/uL 0-0.03 H LYMPHOCYTE # (test code = LY#) 1.51 K/mm3 1.0-5.0 N MONOCYTE # (test code = MO#) 1.15 K/mm3 0-0.8 H EOSINOPHIL # (test code = EO#) 0.56 K/mm3 0.0-0.5 H BASOPHIL # (test code = BA#) 0.08 K/mm3 0.0-0.2 N NUCLEATED RBC # (test code = NRBC#) 0.00 K/mm3 0.0-0.1 N MANUAL DIFF REQUIRED (test code = MDIFF) NO, ONLY SCAN NEEDED DIFFERENTIAL [id number] 12:19:00* Test Item Value Reference Range Interpretation Comments STAIN ACCEPTABILITY (test code = STN ACCEPTABLE) MORPHOLOGY COMMENT (test code = MOC) PLATELET ESTIMATE (test code = PLTEST) PLATELET MORPHOLOGY (test code = PLTMORPH) CBC W/AUTO [id number] 12:19:00* Test Item Value Reference Range Interpretation Comments WHITE BLOOD CELL (test code = WBC) 11.8 K/mm3 4.5-12.5 N RED BLOOD CELL (test code = RBC) 3.36 mill/mm3 4.0-5.8 L HEMOGLOBIN (test code = HGB) 9.6 gram/dL 13.0-17.5 L HEMATOCRIT (test code = HCT) 32.9 % 42.0-52.0 L MEAN CELL VOLUME (test code = MCV) 97.9 fL 80-98 N MEAN CELL HGB (test code = MCH) 28.6 picogram 27.0-33.0 N MEAN CELL HGB CONCETRATION (test code = MCHC) 29.2 gram/dL 33.0-36. 0 L RED CELL DISTRIBUTION WIDTH (test code = RDW) 15.7 % 11.6-16. 2 N RED CELL DISTRIBUTION WIDTH SD (test code = RDW-SD) 55.9 fL 37 .0-51.0 H PLATELET COUNT (test code = PLT) 217 K/mm3 150-450 N MEAN PLATELET VOLUME (test code = MPV) 10.2 fL 6.7-11.0 N NEUTROPHIL % (test code = NT%) 71.3 % 39.0-69.0 H IMMATURE GRANULOCYTE % (test code = IG%) 0.8 % 0.0-5.0 N LYMPHOCYTE % (test code = LY%) 12.8 % 25.0-55.0 L MONOCYTE % (test code = MO%) 9.7 % 0.0-10.0 N EOSINOPHIL % (test code = EO%) 4.7 % 0.0-5.0 N BASOPHIL % (test code = BA%) 0.7 % 0.0-1.0 N NUCLEATED RBC % (test code = NRBC%) 0.0 % 0-0 N NEUTROPHIL # (test code = NT#) 8.40 K/mm3 1.8-7.7 H IMMATURE GRANULOCYTE # (test code = IG#) 0.10 x10 3/uL 0-0.03 H LYMPHOCYTE # (test code = LY#) 1.51 K/mm3 1.0-5.0 N MONOCYTE # (test code = MO#) 1.15 K/mm3 0-0.8 H EOSINOPHIL # (test code = EO#) 0.56 K/mm3 0.0-0.5 H BASOPHIL # (test code = BA#) 0.08 K/mm3 0.0-0.2 N NUCLEATED RBC # (test code = NRBC#) 0.00 K/mm3 0.0-0.1 N MANUAL DIFF REQUIRED (test code = MDIFF) NO, ONLY SCAN NEEDED DIFFERENTIAL [id number] 12:19:00* Test Item Value Reference Range Interpretation Comments STAIN ACCEPTABILITY (test code = STN ACCEPTABLE) CABOT RINGS (test code = CAB) MORPHOLOGY COMMENT (test code = MOC) PLATELET ESTIMATE (test code = PLTEST) PLATELET MORPHOLOGY (test code = PLTMORPH) [id number] 11:44:00* Test Item Value Reference Range Interpretation Comments GLUBED (test code = GLUBED) 170 mg/dL 74-106 H Performed by certified cream separator operator at [facility] - XR CHEST 1 [id number] 08:42:00 FAX: Leonel Smith [facility] [place]: B St: ADM FAX: Wellington Hercules MD [phone] Name: ARY ALEJO [facility] : 1935 Age/S: 83/M [address] [facility] Unit #: [id number] Loc: V.3090 [place] [address] Phys: Wellington Pace MD Acct: [id number] Dis Date: Status: ADM IN PHONE #: [phone] Exam Date: 02/11/2019818 FAX #: [phone] Reason: cough EXAMS: CPT CODE: [id number] XR CHEST 1 V 85654 HISTORY: Cough. COMPARISON: February 06, 2019. Location: [facility]. Patchy pack along the right chest wall with the leads extending into the neck and right jugular catheter with the tip projected over the SVC remain unchanged. No acute infiltrates, effusion or congestion is noted. Mild cardiomegaly. IMPRESSION: No acute infiltrates, effusion or congestion. at 0842 Reported and signed by: Daron Kraft M.D. CC: Leonel Barrera DO; Wellington Pace MD Technologist: MONAE MEDINA JR Trnscrd Date/Time/By: 02/11 (0842) : By: [email or web address] Orig Print D/T: S: 02/11/2019 (0845) PAGE 1 Signed Report [id number] 07:59:00* Test Item Value Reference Range Interpretation Comments GLUBED (test code = GLUBED) 218 mg/dL 74-106 H Performed by certified cream separator operator at [facility] PROTHROMBIN [id number] 07:32:00* Test Item Value Reference Range Interpretation Comments PROTHROMBIN TIME PATIENT (test code = PTP) 27.1 seconds 9.0-14.0 H INTERNATIONAL NORMAL RATIO (test code = INR) 2.3 0.8-1.2 H The therapeutic range for oral anticoagulant therapy formost indications is an international normalized ratio (INR)of between 2.0 and 3.0. The recommended therapeutic INRrange for various clinical situations is listed below: Clinical Situation INR range Pulmonary e mbolism treatment (2.0-3.0)Venous thrombosis treatmentVenous thrombosis prophylaxis (high risk surgery)Prevention of systemic embolism from: Acute myocardial infarction Valvular heart disease Atrial fibrillation Mechanical prosthetic heart valves (2.5-3.5) IS PATIENT ON ANTICOAGULANTS? YLIST ANTICOAGULANTS [id number] 21:03:00* Test Item Value Reference Range Interpretation Comments GLUBED (test code = GLUBED) 183 mg/dL 74-106 H Performed by certified cream separator operator at [facility] [id number] 11:15:00* Test Item Value Reference Range Interpretation Comments GLUBED (test code = GLUBED) 194 mg/dL 74-106 H Performed by certified cream separator operator at [facility] BASIC METABOLIC [id number] 08:42:00* Test Item Value Reference Range Interpretation Comments SODIUM (test code = NA) 136 mmol/L 136-145 N POTASSIUM (test code = K) 5.0 mmol/L 3.5-5.1 N CHLORIDE (test code = CL) 100.0 mmol/L 98-107 N CARBON DIOXIDE (test code = CO2) 29.0 mmol/L 21-32 N ANION GAP (test code = GAP) 12.0 10-20 N GLUCOSE (test code = GLU) 195 mg/dL 74-106 H BLOOD UREA NITROGEN (test code = BUN) 32 mg/dL 7-18 H GLOMERULAR FILTRATION RATE (test code = GFR) 7 mL/min >=60 Estimated GFR by using Modified MDRD formula.Chronic kidney disease is defined as either kidney damageor GFR <60 mL/min/1.73 m2 for >3 months. CREATININE (test code = CREAT) 7.40 mg/dL 0.7-1.3 H BUN/CREATININE RATIO (test code = BUN/CREA) 4.3 10-20 L CALCIUM (test code = CA) 8.6 mg/dL 8.5-10.1 N CBC W/AUTO [id number] 08:33:00* Test Item Value Reference Range Interpretation Comments WHITE BLOOD CELL (test code = WBC) 11.4 K/mm3 4.5-12.5 N RED BLOOD CELL (test code = RBC) 3.06 mill/mm3 4.0-5.8 L HEMOGLOBIN (test code = HGB) 8.9 gram/dL 13.0-17.5 L HEMATOCRIT (test code = HCT) 29.9 % 42.0-52.0 L MEAN CELL VOLUME (test code = MCV) 97.7 fL 80-98 N MEAN CELL HGB (test code = MCH) 29.1 picogram 27.0-33.0 N MEAN CELL HGB CONCETRATION (test code = MCHC) 29.8 gram/dL 33.0-36. 0 L RED CELL DISTRIBUTION WIDTH (test code = RDW) 15.9 % 11.6-16. 2 N RED CELL DISTRIBUTION WIDTH SD (test code = RDW-SD) 57.1 fL 37 .0-51.0 H PLATELET COUNT (test code = PLT) 212 K/mm3 150-450 N MEAN PLATELET VOLUME (test code = MPV) 11.0 fL 6.7-11.0 N NEUTROPHIL % (test code = NT%) 69.0 % 39.0-69.0 N IMMATURE GRANULOCYTE % (test code = IG%) 0.9 % 0.0-5.0 N LYMPHOCYTE % (test code = LY%) 14.0 % 25.0-55.0 L MONOCYTE % (test code = MO%) 10.5 % 0.0-10.0 H EOSINOPHIL % (test code = EO%) 5.1 % 0.0-5.0 H BASOPHIL % (test code = BA%) 0.5 % 0.0-1.0 N NUCLEATED RBC % (test code = NRBC%) 0.0 % 0-0 N NEUTROPHIL # (test code = NT#) 7.86 K/mm3 1.8-7.7 H IMMATURE GRANULOCYTE # (test code = IG#) 0.10 x10 3/uL 0-0.03 H LYMPHOCYTE # (test code = LY#) 1.60 K/mm3 1.0-5.0 N MONOCYTE # (test code = MO#) 1.20 K/mm3 0-0.8 H EOSINOPHIL # (test code = EO#) 0.58 K/mm3 0.0-0.5 H BASOPHIL # (test code = BA#) 0.06 K/mm3 0.0-0.2 N NUCLEATED RBC # (test code = NRBC#) 0.00 K/mm3 0.0-0.1 N BASIC METABOLIC [id number] 08:29:00* Test Item Value Reference Range Interpretation Comments SODIUM (test code = NA) 136 mmol/L 136-145 N POTASSIUM (test code = K) 5.0 mmol/L 3.5-5.1 N CHLORIDE (test code = CL) 100.0 mmol/L 98-107 N CARBON DIOXIDE (test code = CO2) mmol/L 21-32 ANION GAP (test code = GAP) 10-20 GLUCOSE (test code = GLU) mg/dL 74-106 BLOOD UREA NITROGEN (test code = BUN) mg/dL 7-18 GLOMERULAR FILTRATION RATE (test code = GFR) mL/min >=60 CREATININE (test code = CREAT) mg/dL 0.7-1.3 BUN/CREATININE RATIO (test code = BUN/CREA) 10-20 CALCIUM (test code = CA) 8.6 mg/dL 8.5-10.1 N [id number] 07:55:00* Test Item Value Reference Range Interpretation Comments GLUBED (test code = GLUBED) 243 mg/dL 74-106 H Performed by certified cream separator operator at [facility] PROTHROMBIN [id number] 06:51:00* Test Item Value Reference Range Interpretation Comments PROTHROMBIN TIME PATIENT (test code = PTP) 29.7 seconds 9.0-14.0 H INTERNATIONAL NORMAL RATIO (test code = INR) 2.5 0.8-1.2 H The therapeutic range for oral anticoagulant therapy formost indications is an international normalized ratio (INR)of between 2.0 and 3.0. The recommended therapeutic INRrange for various clinical situations is listed below: Clinical Situation INR range Pulmonary e mbolism treatment (2.0-3.0)Venous thrombosis treatmentVenous thrombosis prophylaxis (high risk surgery)Prevention of systemic embolism from: Acute myocardial infarction Valvular heart disease Atrial fibrillation Mechanical prosthetic heart valves (2.5-3.5) IS PATIENT ON ANTICOAGULANTS? YLIST ANTICOAGULANTS [id number] 20:12:00* Test Item Value Reference Range Interpretation Comments GLUBED (test code = GLUBED) 170 mg/dL 74-106 H Performed by certified cream separator operator at [facility] [id number] 17:48:00* Test Item Value Reference Range Interpretation Comments GLUBED (test code = GLUBED) 117 mg/dL 74-106 H Performed by certified cream separator operator at [facility] [id number] 16:50:00* Test Item Value Reference Range Interpretation Comments GLUBED (test code = GLUBED) 125 mg/dL 74-106 H Performed by certified cream separator operator at [facility] [id number] 16:27:00* Test Item Value Reference Range Interpretation Comments GLUBED (test code = GLUBED) 123 mg/dL 74-106 H Performed by certified cream separator operator at [facility] [id number] 16:05:00* Test Item Value Reference Range Interpretation Comments GLUBED (test code = GLUBED) 120 mg/dL 74-106 H Performed by certified cream separator operator at [facility]2019-11-10 16:05:00* Test Item Value Reference Range Interpretation Comments GLUBED (test code = GLUBED) 31 mg/dL 74-106 LL Test performed as P.O.C. by nursing staff.Performed by certified cream separator operator at [facility]2019-11-10 11:09:00* Test Item Value Reference Range Interpretation Comments GLUBED (test code = GLUBED) 243 mg/dL 74-106 H Performed by certified cream separator operator at [facility] PROTHROMBIN [id number] 08:01:00* Test Item Value Reference Range Interpretation Comments PROTHROMBIN TIME PATIENT (test code = PTP) 32.1 seconds 9.0-14.0 H INTERNATIONAL NORMAL RATIO (test code = INR) 2.7 0.8-1.2 H The therapeutic range for oral anticoagulant therapy formost indications is an international normalized ratio (INR)of between 2.0 and 3.0. The recommended therapeutic INRrange for various clinical situations is listed below: Clinical Situation INR range Pulmonary e mbolism treatment (2.0-3.0)Venous thrombosis treatmentVenous thrombosis prophylaxis (high risk surgery)Prevention of systemic embolism from: Acute myocardial infarction Valvular heart disease Atrial fibrillation Mechanical prosthetic heart valves (2.5-3.5) IS PATIENT ON ANTICOAGULANTS? YLIST ANTICOAGULANTS [id number] 07:24:00* Test Item Value Reference Range Interpretation Comments GLUBED (test code = GLUBED) 206 mg/dL 74-106 H Performed by certified cream separator operator at [facility] [id number] 20:19:00* Test Item Value Reference Range Interpretation Comments GLUBED (test code = GLUBED) 191 mg/dL 74-106 H Performed by certified cream separator operator at [facility] [id number] 16:34:00* Test Item Value Reference Range Interpretation Comments GLUBED (test code = GLUBED) 142 mg/dL 74-106 H Performed by certified cream separator operator at [facility] [id number] 16:19:00* Test Item Value Reference Range Interpretation Comments GLUBED (test code = GLUBED) 23 mg/dL 74-106 LL Test performed as P.O.C. by nursing staff.[facility] certified cream separator [facility] HospitalNotified Nurse~ [id number] 16:19:00* Test Item Value Reference Range Interpretation Comments GLUBED (test code = GLUBED) 23 mg/dL 74-106 LL Test performed as P.O.C. by nursing staff.[facility] certified cream separator [facility] Notified~ [id number] 11:36:00* Test Item Value Reference Range Interpretation Comments GLUBED (test code = GLUBED) 116 mg/dL 74-106 H Performed by certified cream separator operator at [facility] [id number] 07:50:00* Test Item Value Reference Range Interpretation Comments GLUBED (test code = GLUBED) 254 mg/dL 74-106 H Performed by certified cream separator operator at [facility] PROTHROMBIN [id number] 07:41:00* Test Item Value Reference Range Interpretation Comments PROTHROMBIN TIME PATIENT (test code = PTP) 29.9 seconds 9.0-14.0 H INTERNATIONAL NORMAL RATIO (test code = INR) 2.6 0.8-1.2 H The therapeutic range for oral anticoagulant therapy formost indications is an international normalized ratio (INR)of between 2.0 and 3.0. The recommended therapeutic INRrange for various clinical situations is listed below: Clinical Situation INR range Pulmonary e mbolism treatment (2.0-3.0)Venous thrombosis treatmentVenous thrombosis prophylaxis (high risk surgery)Prevention of systemic embolism from: Acute myocardial infarction Valvular heart disease Atrial fibrillation Mechanical prosthetic heart valves (2.5-3.5) IS PATIENT ON ANTICOAGULANTS? YLIST ANTICOAGULANTS [id number] 20:22:00* Test Item Value Reference Range Interpretation Comments GLUBED (test code = GLUBED) 154 mg/dL 74-106 H Performed by certified cream separator operator at [facility] - XR SWLW FUNC W/C [id number] 15:18:00 FAX: Leonel Smith [place]: [address] St: ADM FAX: Wellington Hercules MD [phone] Name: ARY ALEJO [facility] : 1935 Age/S: 83/M [place] re[place] Unit #: [id number] Loc: V.3090 [facility] [place] [address] Phys: Leonel Barrera [facility] Acct: [id number] Dis Date: Status: ADM IN PHONE #: [phone] Exam Date: 02/07/2019 1235 FAX #: [phone] Reason: SWALLOW EVAL EXAMS: CPT CODE: [id number] XR UVALDO WOOD W/C V 11092 CLINICAL HISTORY: SWALLOW EVAL TECHNIQUE: Fluoroscopic swallow function evaluation in conjunction with speech therapy. Fluoroscopy time 149;Dose: 16 mGy. IMPRESSION: Handling of varying consistencies of barium were evaluated. Aspiration was noted with thin barium. There is also a single instance of deep laryngeal penetration when consuming nectar consistency barium with a straw. Additional instances of laryngeal penetration without aspiration were seen with nectar consistency barium. Please see separate speech pathology report for complete discussion. at 5064 Reported and signed by: Richi Godinez MD CC: Leonel Barrera DO; Wellington Pace MD Technologist: RT LIANA(R) Trnscrd Date/Time/By: 02/07/2019 (9219) : By: [email or web address] Orig Print D/T : S: 02/07/2019 (6729) PAGE 1 Sig mando Report [id number] 13:22:00* Test Item Value Reference Range Interpretation Comments GLUBED (test code = GLUBED) 79 mg/dL 74-106 N Performed by certified cream separator operator at [facility] [id number] 09:02:00* Test Item Value Reference Range Interpretation Comments GLUBED (test code = GLUBED) 207 mg/dL 74-106 H Performed by certified cream separator operator at [facility] PROTHROMBIN [id number] 07:38:00* Test Item Value Reference Range Interpretation Comments PROTHROMBIN TIME PATIENT (test code = PTP) 30.2 seconds 9.0-14.0 H INTERNATIONAL NORMAL RATIO (test code = INR) 2.6 0.8-1.2 H The therapeutic range for oral anticoagulant therapy formost indications is an international normalized ratio (INR)of between 2.0 and 3.0. The recommended therapeutic INRrange for various clinical situations is listed below: Clinical Situation INR range Pulmonary e mbolism treatment (2.0-3.0)Venous thrombosis treatmentVenous thrombosis prophylaxis (high risk surgery)Prevention of systemic embolism from: Acute myocardial infarction Valvular heart disease Atrial fibrillation Mechanical prosthetic heart valves (2.5-3.5) IS PATIENT ON ANTICOAGULANTS? YLIST ANTICOAGULANTS COUMADINCBC W/O DIFF 2019-02-07 07:21:00* Test Item Value Reference Range Interpretation Comments WHITE BLOOD CELL (test code = WBC) 9.9 K/mm3 4.5-12.5 N RED BLOOD CELL (test code = RBC) 3.18 mill/mm3 4.0-5.8 L HEMOGLOBIN (test code = HGB) 9.2 gram/dL 13.0-17.5 L HEMATOCRIT (test code = HCT) 29.9 % 42.0-52.0 L MEAN CELL VOLUME (test code = MCV) 94.0 fL 80-98 N MEAN CELL HGB (test code = MCH) 28.9 picogram 27.0-33.0 N MEAN CELL HGB CONCETRATION (test code = MCHC) 30.8 gram/dL 33.0-36. 0 L RED CELL DISTRIBUTION WIDTH (test code = RDW) 15.5 % 11.6-16. 2 N PLATELET COUNT (test code = PLT) 226 K/mm3 150-450 RESULT VERIFIED BY REPEAT ANALYSIS MEAN PLATELET VOLUME (test code = MPV) 10.6 fL 6.7-11.0 N BASIC METABOLIC [id number] 07:15:00* Test Item Value Reference Range Interpretation Comments SODIUM (test code = NA) 140 mmol/L 136-145 N POTASSIUM (test code = K) 3.9 mmol/L 3.5-5.1 N CHLORIDE (test code = CL) 100.0 mmol/L 98-107 N CARBON DIOXIDE (test code = CO2) 30.0 mmol/L 21-32 N ANION GAP (test code = GAP) 13.9 10-20 N GLUCOSE (test code = GLU) 207 mg/dL 74-106 H BLOOD UREA NITROGEN (test code = BUN) 29 mg/dL 7-18 H GLOMERULAR FILTRATION RATE (test code = GFR) 9 mL/min >=60 Estimated GFR by using Modified MDRD formula.Chronic kidney disease is defined as either kidney damageor GFR <60 mL/min/1.73 m2 for >3 months. CREATININE (test code = CREAT) 6.30 mg/dL 0.7-1.3 H BUN/CREATININE RATIO (test code = BUN/CREA) 4.6 10-20 L CALCIUM (test code = CA) 8.5 mg/dL 8.5-10.1 N BASIC METABOLIC [id number] 07:09:00* Test Item Value Reference Range Interpretation Comments SODIUM (test code = NA) 140 mmol/L 136-145 N POTASSIUM (test code = K) 3.9 mmol/L 3.5-5.1 N CHLORIDE (test code = CL) 100.0 mmol/L 98-107 N CARBON DIOXIDE (test code = CO2) mmol/L 21-32 ANION GAP (test code = GAP) 10-20 GLUCOSE (test code = GLU) mg/dL 74-106 BLOOD UREA NITROGEN (test code = BUN) mg/dL 7-18 GLOMERULAR FILTRATION RATE (test code = GFR) mL/min >=60 CREATININE (test code = CREAT) mg/dL 0.7-1.3 BUN/CREATININE RATIO (test code = BUN/CREA) 10-20 CALCIUM (test code = CA) mg/dL 8.5-10.1 [id number] 20:03:00* Test Item Value Reference Range Interpretation Comments GLUBED (test code = GLUBED) 270 mg/dL 74-106 H Performed by certified cream separator operator at [facility] - XR CHEST 2 [id number] 18:26:00 FAX: Leonel Smith kiara [place]: [address] St: [facility] FAX: Wellington Hercules MD [phone] Name: ARY ALEJO [facility] : 1935 Age/S: 83/M [place] Unit #: [id number] Loc: V.3090 [place] [address] Phys: Leonel Barrera DO Acct: [id number] Dis Date: Status: ADM IN PHONE #: [phone] Exam Date: 02/06/2019 182 FAX #: [phone] Reason: cough and congestion EXAMS: CPT CODE: [id number] XR CHEST 2 V 63840 REASON FOR EXAM: cough and congestion Exam Order Date: 02/06/2019 12:00 AM Ordering: Leonel Barrera DO Attending:Leonel Barrera DO Location:[facility] PROCEDURE: - XR CHEST 2 V COMPARISON: 01/31/2019 FINDINGS: PA and lateral views of the chest show clear lungs without evidence of consolidation. No evidence of effusion. The heart size is minimally enlarged. Pulmonary vasculatures are unremarkable. The osseous structures are grossly intact. Stable appearance of the right IJ dialysis catheter IMPRESSION: No active disease. Electro nically Signed by Jerry Brar on 02/06/2019 at 1826 Rep orted and signed by: Tavares Brar M.D. CC: Leonel Barrera DO; Wellington Pace MD Technologist: RT YANDY(R); Briana Valente(R) Trnscrd Date/Time/By: 02/06/2019 (1825) : By: SandraL Orig Print D/T: S: 02/06/2019 (1828) PAGE 1 Signed Report [id number] 16:32:00* Test Item Value Reference Range Interpretation Comments GLUBED (test code = GLUBED) 128 mg/dL 74-106 H Performed by certified cream separator operator at [facility] [id number] 11:29:00* Test Item Value Reference Range Interpretation Comments GLUBED (test code = GLUBED) 148 mg/dL 74-106 H Performed by certified cream separator operator at [facility] - CT C-SPINE W/O [id number] 11:00:00 Name: ARY ALEJO [facility] : 1935 Age/S: 83 / M [address] Unit #: [id number] Loc: [place] [address] Phys: Leonel Barrera DO Acct: [id number] Dis Date: Status: ADM IN PHONE #: [phone] Exam Date: 02/06/2019 1018 FAX #: [phone] Reason: arm weakness EXAMS: CPT CODE: [id number] CT C-SPINE W/O CONTRAST 27962 HISTORY: arm weakness TECHNIQUE: Noncontrast 2.[address] of the head and cervical spine. Examination acquired within 24 hours of arrival. Automated exposure control for dose reduction. COMPARISON: None FINDINGS: No lacerations or contusions of the scalp or facial soft tissues. Post surgical changes are present in the bilateral frontal bones near the vertex and deep brain stimulators leads enter the intracranial cavity and terminates in the bilateral thalami. No acute hemorrhage. No intracranial mass, mass effect, or midline shift. No effacement of the sulci or luu-white matter interface. There is diffuse cortical atrophy with ventriculomegaly and extensive microvascular ischemic changes of the white matter. Visualized paranasal sinuses are clear. External auditory canals and middle ear cavities are clear. There is partial opacification of the bilateral mastoid air cells. Prior lens extr action bilaterally. There is loss of cervical lordosis and severe height loss of the intervertebral disc spaces throughout the cervical spi ne. There also appears to be height loss of the C4-C6 vertebral bodies. Se ed degenerative changes are seen throughout the facet joints in the cervical spine. There is severe left-sided foraminal narrowing at C2-C3. There is severe bilateral foraminal narrowing and severe central canal narrowing at C3-C4. There is severe bilateral foraminal narrowing a nd mild central canal narrowing at C4-C5. There is severe bilateral foraminal narrowing and severe central canal narrowing at C5-C6. There is severe bilateral foraminal narrowing and severe central canal narrowing at C6-C7. There is moderate bilateral foraminal narrowing and mild central c anal narrowing at C7-T1. No prevertebral or paraspinal soft tissue abnormality. Lung apices are clear. Right IJ dialysis catheter is seen w ithin the SVC. PAGE 1 Signed Report (CONTINUED) Name: ARY ALEJO [facility] : 1935 Age/S: 83 / M [place] Unit #: [id number] Loc: [place] [address] Phys: Leonel Barrera Mikhail Tinajero DO Acct: [id number] Dis Date: Status: ADM IN PHONE #: [phone] Exam Date: 02/06/2019 1018 FAX #: [phone] Reason: arm weakness EXAMS: CPT CODE: [id number] CT C-SPINE W/O CONTRAST 10449 < Continued> IMPRESSION: No acute intracranial hemorrhage, mass effect, or large vascular territorial infarct. Diffuse cortical atrophy with severe ventriculomegaly and extensive microvascular ischemic changes of the white matter. Although no large vascular territorial infarct is appreciated, a smaller infarct would be difficult to exclude given the background of microvascular ischemic changes. Deep brain stimulator with leads terminating in the bilateral thalami. Severe degenerative changes of the cervical spine with reversal of cervical lordosis and severe foraminal narrowing at multiple levels. No acute fracture is seen. Location: [facility] at 1100 Reported and signed by: Richi Godinez MD CC: Leonel Barrera DO; Wellington Pace MD Technologist:RT Kishor(R),CT CTDI: DLP: Trnscb Date/Time: 02/06/2019 (1100) t.SDR.RR31 Orig Print D/T: S: 02/06/2019 (1424) PAGE 2 Signed Report - CT HEAD/BRAIN W/O [id number] 11:00:00 Name: ARY ALEJO [facility] : 1935 Age/S: 83 / M [address] Unit #: [id number] Loc: [place] [address] Phys: Leonel Barrera Pekiara Tinajero Acct: [id number] Dis Date: Status: ADM IN PHONE #: [phone] Exam Date: 02/06/2019 1018 FAX #: [phone] Reason: arm weakness EXAMS: CPT CODE: [id number] CT HEAD/BRAIN W/O CONT 15323 HISTORY: arm weakness TECHNIQUE: Noncontrast 2.[address] of the head and cervical spine. Examination acquired within 24 hours of arrival. Automated exposure control for dose reduction. COMPARISON: None FINDINGS: No lacerations or contusions of the scalp or facial soft tissues. Post surgical changes are present in the bilateral frontal bones near the vertex and deep brain stimulators leads enter the intracranial cavity and terminates in the bilateral thalami. No acute hemorrhage. No intracranial mass, mass effect, or midline shift. No effacement of the sulci or luu-white matter interface. There is diffuse cortical atrophy with ventriculomegaly and extensive microvascular ischemic changes of the white matter. Visualized paranasal sinuses are clear. External auditory canals and middle ear cavities are clear. There is partial opacification of the bilateral mastoid air cells. Prior lens extraction bilaterally. There is loss of cervical lordosis and severe height loss of the intervertebral disc spaces throughout the cervical spine. There also appears to be height loss of the C4-C6 vertebral bodies. Severe degenerative changes are seen throughout the facet joints in the cervical spine. There is severe left-sided foraminal narrowing at C2-C3. There is severe bilateral foraminal narrowing and severe central canal narrowing at C3-C4. There is severe bilateral foraminal narrowing a nd mild central canal narrowing at C4-C5. There is severe bilateral foraminal narrowing and severe central canal narrowing at C5-C6. There is severe bilateral foraminal narrowing and severe central canal narrowing at C6-C7. There is moderate bilateral foraminal narrowing and mild central c anal narrowing at C7-T1. No prevertebral or paraspinal soft tissue abnormality. Lung apices are clear. Right IJ dialysis catheter is seen w ithin the SVC. PAGE 1 Signed Report (CONTINUED) Name: ARY ALEJO [facility] : 1935 Age/S: 83 / M [address] [facility] Unit #: [id number] Loc: [place] [address] Phys: Leonel Barrera DO Acct: [id number] Dis Date: Status: ADM IN PHONE #: [phone] Exam Date: 02/06/2019 1018 FAX #: [phone] Reason: arm weakness EXAMS: CPT CODE: [id number] CT HEAD/BRAIN W/O CONT 62973 < Continued> IMPRESSION: No acute intracranial hemorrhage, mass effect, or large vascular territorial infarct. Diffuse cortical atrophy with severe ventriculomegaly and extensive microvascular ischemic changes of the white matter. Although no large vascular territorial infarct is appreciated, a smaller infarct would be difficult to exclude given the background of microvascular ischemic changes. Deep brain stimulator with leads terminating in the bilateral thalami. Severe degenerative changes of the cervical spine with reversal of cervical lordosis and severe foraminal narrowing at multiple levels. No acute fracture is seen. Location: [facility] at 1100 Reported and signed by: Richi Godinez MD CC: Leonel Barrera DO; Wellington Pace MD Technologist:Loida Juares,RT(R),CT CTDI: DLP: Trnscb Date/Time: 02/06/2019 (1100) t.SDR.RR31 Orig Print D/T: S: 02/06/2019 (9355) PAGE 2 Signed Report [id number] 07:50:00* Test Item Value Reference Range Interpretation Comments GLUBED (test code = GLUBED) 206 mg/dL 74-106 H Performed by certified cream separator operator at [facility] PROTHROMBIN [id number] 06:08:00* Test Item Value Reference Range Interpretation Comments PROTHROMBIN TIME PATIENT (test code = PTP) 32.9 seconds 9.0-14.0 H INTERNATIONAL NORMAL RATIO (test code = INR) 2.8 0.8-1.2 H The therapeutic range for oral anticoagulant therapy formost indications is an international normalized ratio (INR)of between 2.0 and 3.0. The recommended therapeutic INRrange for various clinical situations is listed below: Clinical Situation INR range Pulmonary e mbolism treatment (2.0-3.0)Venous thrombosis treatmentVenous thrombosis prophylaxis (high risk surgery)Prevention of systemic embolism from: Acute myocardial infarction Valvular heart disease Atrial fibrillation Mechanical prosthetic heart valves (2.5-3.5) IS PATIENT ON ANTICOAGULANTS? YLIST ANTICOAGULANTS [id number] 20:13:00* Test Item Value Reference Range Interpretation Comments GLUBED (test code = GLUBED) 195 mg/dL 74-106 H Performed by certified cream separator operator at [facility] PROTHROMBIN [id number] 15:48:00* Test Item Value Reference Range Interpretation Comments PROTHROMBIN TIME PATIENT (test code = PTP) 35.2 seconds 9.0-14.0 H INTERNATIONAL NORMAL RATIO (test code = INR) 3.0 0.8-1.2 H The therapeutic range for oral anticoagulant therapy formost indications is an international normalized ratio (INR)of between 2.0 and 3.0. The recommended therapeutic INRrange for various clinical situations is listed below: Clinical Situation INR range Pulmonary e mbolism treatment (2.0-3.0)Venous thrombosis treatmentVenous thrombosis prophylaxis (high risk surgery)Prevention of systemic embolism from: Acute myocardial infarction Valvular heart disease Atrial fibrillation Mechanical prosthetic heart valves (2.5-3.5) RIDE ATTENDANT.MARK [id number] V.LAB.KP2 02/05/19 0936IS PATIENT ON ANTICOAGULANTS? YL IST ANTICOAGULANTS COUMADINBASIC METABOLIC [id number] 15:09:00* Test Item Value Reference Range Interpretation Comments SODIUM (test code = NA) 140 mmol/L 136-145 N POTASSIUM (test code = K) 4.0 mmol/L 3.5-5.1 N CHLORIDE (test code = CL) 99.0 mmol/L 98-107 N CARBON DIOXIDE (test code = CO2) 30.0 mmol/L 21-32 N ANION GAP (test code = GAP) 15.0 10-20 N GLUCOSE (test code = GLU) 89 mg/dL 74-106 N BLOOD UREA NITROGEN (test code = BUN) 38 mg/dL 7-18 H GLOMERULAR FILTRATION RATE (test code = GFR) 7 mL/min >=60 Estimated GFR by using Modified MDRD formula.Chronic kidney disease is defined as either kidney damageor GFR <60 mL/min/1.73 m2 for >3 months. CREATININE (test code = CREAT) 7.40 mg/dL 0.7-1.3 H BUN/CREATININE RATIO (test code = BUN/CREA) 5.1 10-20 L CALCIUM (test code = CA) 9.2 mg/dL 8.5-10.1 N TO WAIT FOR DIALYSIS V.LAB.[facility] 02/05/19 0936CBC W/AUTO [id number] 14:39:00* Test Item Value Reference Range Interpretation Comments WHITE BLOOD CELL (test code = WBC) 13.0 K/mm3 4.5-12.5 H RED BLOOD CELL (test code = RBC) 3.37 mill/mm3 4.0-5.8 L HEMOGLOBIN (test code = HGB) 9.6 gram/dL 13.0-17.5 L HEMATOCRIT (test code = HCT) 32.5 % 42.0-52.0 L MEAN CELL VOLUME (test code = MCV) 96.4 fL 80-98 N MEAN CELL HGB (test code = MCH) 28.5 picogram 27.0-33.0 N MEAN CELL HGB CONCETRATION (test code = MCHC) 29.5 gram/dL 33.0-36. 0 L RED CELL DISTRIBUTION WIDTH (test code = RDW) 15.5 % 11.6-16. 2 N RED CELL DISTRIBUTION WIDTH SD (test code = RDW-SD) 55.4 fL 37 .0-51.0 H PLATELET COUNT (test code = PLT) 279 K/mm3 150-450 N MEAN PLATELET VOLUME (test code = MPV) 10.4 fL 6.7-11.0 N NEUTROPHIL % (test code = NT%) 71.6 % 39.0-69.0 H IMMATURE GRANULOCYTE % (test code = IG%) 0.8 % 0.0-5.0 N LYMPHOCYTE % (test code = LY%) 12.0 % 25.0-55.0 L MONOCYTE % (test code = MO%) 11.5 % 0.0-10.0 H EOSINOPHIL % (test code = EO%) 3.3 % 0.0-5.0 N BASOPHIL % (test code = BA%) 0.8 % 0.0-1.0 N NUCLEATED RBC % (test code = NRBC%) 0.0 % 0-0 N NEUTROPHIL # (test code = NT#) 9.26 K/mm3 1.8-7.7 H IMMATURE GRANULOCYTE # (test code = IG#) 0.11 x10 3/uL 0-0.03 H LYMPHOCYTE # (test code = LY#) 1.56 K/mm3 1.0-5.0 N MONOCYTE # (test code = MO#) 1.49 K/mm3 0-0.8 H EOSINOPHIL # (test code = EO#) 0.43 K/mm3 0.0-0.5 N BASOPHIL # (test code = BA#) 0.10 K/mm3 0.0-0.2 N NUCLEATED RBC # (test code = NRBC#) 0.00 K/mm3 0.0-0.1 N MANUAL DIFF REQUIRED (test code = MDIFF) NO, ONLY SCAN NEEDED TO WAIT FOR DIALYSIS V.LAB.[facility] 02/05/19 0937DIFFERENTIAL [id number] 14:39:00 * Test Item Value Reference Range Interpretation Comments STAIN ACCEPTABILITY (test code = STN ACCEPTABLE) STAIN ACCEPTABLE HYPOCHROMIA (test code = HYPO) 1+ PLATELET ESTIMATE (test code = PLTEST) ADEQUATE PLATELET MORPHOLOGY (test code = PLTMORPH) SIZE VARIABLE TO WAIT FOR DIALYSIS V.LAB.[facility] 02/05/19 0937CBC W/AUTO [id number] 14:16:00* Test Item Value Reference Range Interpretation Comments WHITE BLOOD CELL (test code = WBC) 13.0 K/mm3 4.5-12.5 H RED BLOOD CELL (test code = RBC) 3.37 mill/mm3 4.0-5.8 L HEMOGLOBIN (test code = HGB) 9.6 gram/dL 13.0-17.5 L HEMATOCRIT (test code = HCT) 32.5 % 42.0-52.0 L MEAN CELL VOLUME (test code = MCV) 96.4 fL 80-98 N MEAN CELL HGB (test code = MCH) 28.5 picogram 27.0-33.0 N MEAN CELL HGB CONCETRATION (test code = MCHC) 29.5 gram/dL 33.0-36. 0 L RED CELL DISTRIBUTION WIDTH (test code = RDW) 15.5 % 11.6-16. 2 N RED CELL DISTRIBUTION WIDTH SD (test code = RDW-SD) 55.4 fL 37 .0-51.0 H PLATELET COUNT (test code = PLT) 279 K/mm3 150-450 N MEAN PLATELET VOLUME (test code = MPV) 10.4 fL 6.7-11.0 N NEUTROPHIL % (test code = NT%) 71.6 % 39.0-69.0 H IMMATURE GRANULOCYTE % (test code = IG%) 0.8 % 0.0-5.0 N LYMPHOCYTE % (test code = LY%) 12.0 % 25.0-55.0 L MONOCYTE % (test code = MO%) 11.5 % 0.0-10.0 H EOSINOPHIL % (test code = EO%) 3.3 % 0.0-5.0 N BASOPHIL % (test code = BA%) 0.8 % 0.0-1.0 N NUCLEATED RBC % (test code = NRBC%) 0.0 % 0-0 N NEUTROPHIL # (test code = NT#) 9.26 K/mm3 1.8-7.7 H IMMATURE GRANULOCYTE # (test code = IG#) 0.11 x10 3/uL 0-0.03 H LYMPHOCYTE # (test code = LY#) 1.56 K/mm3 1.0-5.0 N MONOCYTE # (test code = MO#) 1.49 K/mm3 0-0.8 H EOSINOPHIL # (test code = EO#) 0.43 K/mm3 0.0-0.5 N BASOPHIL # (test code = BA#) 0.10 K/mm3 0.0-0.2 N NUCLEATED RBC # (test code = NRBC#) 0.00 K/mm3 0.0-0.1 N MANUAL DIFF REQUIRED (test code = MDIFF) NO, ONLY SCAN NEEDED TO WAIT FOR DIALYSIS V.LAB.2 02/05/19 0937DIFFERENTIAL [id number] 14:16:00 * Test Item Value Reference Range Interpretation Comments STAIN ACCEPTABILITY (test code = STN ACCEPTABLE) CABOT RINGS (test code = CAB) MORPHOLOGY COMMENT (test code = MOC) PLATELET ESTIMATE (test code = PLTEST) PLATELET MORPHOLOGY (test code = PLTMORPH) TO WAIT FOR DIALYSIS V.LAB.[facility] 02/05/19 0937CBC W/AUTO [id number] 14:16:00* Test Item Value Reference Range Interpretation Comments WHITE BLOOD CELL (test code = WBC) 13.0 K/mm3 4.5-12.5 H RED BLOOD CELL (test code = RBC) 3.37 mill/mm3 4.0-5.8 L HEMOGLOBIN (test code = HGB) 9.6 gram/dL 13.0-17.5 L HEMATOCRIT (test code = HCT) 32.5 % 42.0-52.0 L MEAN CELL VOLUME (test code = MCV) 96.4 fL 80-98 N MEAN CELL HGB (test code = MCH) 28.5 picogram 27.0-33.0 N MEAN CELL HGB CONCETRATION (test code = MCHC) 29.5 gram/dL 33.0-36. 0 L RED CELL DISTRIBUTION WIDTH (test code = RDW) 15.5 % 11.6-16. 2 N RED CELL DISTRIBUTION WIDTH SD (test code = RDW-SD) 55.4 fL 37 .0-51.0 H PLATELET COUNT (test code = PLT) 279 K/mm3 150-450 N MEAN PLATELET VOLUME (test code = MPV) 10.4 fL 6.7-11.0 N NEUTROPHIL % (test code = NT%) 71.6 % 39.0-69.0 H IMMATURE GRANULOCYTE % (test code = IG%) 0.8 % 0.0-5.0 N LYMPHOCYTE % (test code = LY%) 12.0 % 25.0-55.0 L MONOCYTE % (test code = MO%) 11.5 % 0.0-10.0 H EOSINOPHIL % (test code = EO%) 3.3 % 0.0-5.0 N BASOPHIL % (test code = BA%) 0.8 % 0.0-1.0 N NUCLEATED RBC % (test code = NRBC%) 0.0 % 0-0 N NEUTROPHIL # (test code = NT#) 9.26 K/mm3 1.8-7.7 H IMMATURE GRANULOCYTE # (test code = IG#) 0.11 x10 3/uL 0-0.03 H LYMPHOCYTE # (test code = LY#) 1.56 K/mm3 1.0-5.0 N MONOCYTE # (test code = MO#) 1.49 K/mm3 0-0.8 H EOSINOPHIL # (test code = EO#) 0.43 K/mm3 0.0-0.5 N BASOPHIL # (test code = BA#) 0.10 K/mm3 0.0-0.2 N NUCLEATED RBC # (test code = NRBC#) 0.00 K/mm3 0.0-0.1 N MANUAL DIFF REQUIRED (test code = MDIFF) NO, ONLY SCAN NEEDED TO WAIT FOR DIALYSIS V.LAB.[facility] 02/05/19 0937DIFFERENTIAL [id number] 14:16:00 * Test Item Value Reference Range Interpretation Comments STAIN ACCEPTABILITY (test code = STN ACCEPTABLE) MORPHOLOGY COMMENT (test code = MOC) PLATELET ESTIMATE (test code = PLTEST) PLATELET MORPHOLOGY (test code = PLTMORPH) TO WAIT FOR DIALYSIS V.LAB.[facility] 02/05/19 0937CBC W/AUTO [id number] 14:16:00* Test Item Value Reference Range Interpretation Comments WHITE BLOOD CELL (test code = WBC) 13.0 K/mm3 4.5-12.5 H RED BLOOD CELL (test code = RBC) 3.37 mill/mm3 4.0-5.8 L HEMOGLOBIN (test code = HGB) 9.6 gram/dL 13.0-17.5 L HEMATOCRIT (test code = HCT) 32.5 % 42.0-52.0 L MEAN CELL VOLUME (test code = MCV) 96.4 fL 80-98 N MEAN CELL HGB (test code = MCH) 28.5 picogram 27.0-33.0 N MEAN CELL HGB CONCETRATION (test code = MCHC) 29.5 gram/dL 33.0-36. 0 L RED CELL DISTRIBUTION WIDTH (test code = RDW) 15.5 % 11.6-16. 2 N RED CELL DISTRIBUTION WIDTH SD (test code = RDW-SD) 55.4 fL 37 .0-51.0 H PLATELET COUNT (test code = PLT) 279 K/mm3 150-450 N MEAN PLATELET VOLUME (test code = MPV) 10.4 fL 6.7-11.0 N NEUTROPHIL % (test code = NT%) 71.6 % 39.0-69.0 H IMMATURE GRANULOCYTE % (test code = IG%) 0.8 % 0.0-5.0 N LYMPHOCYTE % (test code = LY%) 12.0 % 25.0-55.0 L MONOCYTE % (test code = MO%) 11.5 % 0.0-10.0 H EOSINOPHIL % (test code = EO%) 3.3 % 0.0-5.0 N BASOPHIL % (test code = BA%) 0.8 % 0.0-1.0 N NUCLEATED RBC % (test code = NRBC%) 0.0 % 0-0 N NEUTROPHIL # (test code = NT#) 9.26 K/mm3 1.8-7.7 H IMMATURE GRANULOCYTE # (test code = IG#) 0.11 x10 3/uL 0-0.03 H LYMPHOCYTE # (test code = LY#) 1.56 K/mm3 1.0-5.0 N MONOCYTE # (test code = MO#) 1.49 K/mm3 0-0.8 H EOSINOPHIL # (test code = EO#) 0.43 K/mm3 0.0-0.5 N BASOPHIL # (test code = BA#) 0.10 K/mm3 0.0-0.2 N NUCLEATED RBC # (test code = NRBC#) 0.00 K/mm3 0.0-0.1 N MANUAL DIFF REQUIRED (test code = MDIFF) NO, ONLY SCAN NEEDED TO WAIT FOR DIALYSIS V.LAB.[facility] 02/05/19 0937DIFFERENTIAL [id number] 14:16:00 * Test Item Value Reference Range Interpretation Comments STAIN ACCEPTABILITY (test code = STN ACCEPTABLE) MORPHOLOGY COMMENT (test code = MOC) PLATELET ESTIMATE (test code = PLTEST) PLATELET MORPHOLOGY (test code = PLTMORPH) TO WAIT FOR DIALYSIS V.LAB.[facility] 02/05/19 0937CBC W/AUTO [id number] 14:16:00* Test Item Value Reference Range Interpretation Comments WHITE BLOOD CELL (test code = WBC) 13.0 K/mm3 4.5-12.5 H RED BLOOD CELL (test code = RBC) 3.37 mill/mm3 4.0-5.8 L HEMOGLOBIN (test code = HGB) 9.6 gram/dL 13.0-17.5 L HEMATOCRIT (test code = HCT) 32.5 % 42.0-52.0 L MEAN CELL VOLUME (test code = MCV) 96.4 fL 80-98 N MEAN CELL HGB (test code = MCH) 28.5 picogram 27.0-33.0 N MEAN CELL HGB CONCETRATION (test code = MCHC) 29.5 gram/dL 33.0-36. 0 L RED CELL DISTRIBUTION WIDTH (test code = RDW) 15.5 % 11.6-16. 2 N RED CELL DISTRIBUTION WIDTH SD (test code = RDW-SD) 55.4 fL 37 .0-51.0 H PLATELET COUNT (test code = PLT) 279 K/mm3 150-450 N MEAN PLATELET VOLUME (test code = MPV) 10.4 fL 6.7-11.0 N NEUTROPHIL % (test code = NT%) 71.6 % 39.0-69.0 H IMMATURE GRANULOCYTE % (test code = IG%) 0.8 % 0.0-5.0 N LYMPHOCYTE % (test code = LY%) 12.0 % 25.0-55.0 L MONOCYTE % (test code = MO%) 11.5 % 0.0-10.0 H EOSINOPHIL % (test code = EO%) 3.3 % 0.0-5.0 N BASOPHIL % (test code = BA%) 0.8 % 0.0-1.0 N NUCLEATED RBC % (test code = NRBC%) 0.0 % 0-0 N NEUTROPHIL # (test code = NT#) 9.26 K/mm3 1.8-7.7 H IMMATURE GRANULOCYTE # (test code = IG#) 0.11 x10 3/uL 0-0.03 H LYMPHOCYTE # (test code = LY#) 1.56 K/mm3 1.0-5.0 N MONOCYTE # (test code = MO#) 1.49 K/mm3 0-0.8 H EOSINOPHIL # (test code = EO#) 0.43 K/mm3 0.0-0.5 N BASOPHIL # (test code = BA#) 0.10 K/mm3 0.0-0.2 N NUCLEATED RBC # (test code = NRBC#) 0.00 K/mm3 0.0-0.1 N MANUAL DIFF REQUIRED (test code = MDIFF) NO, ONLY SCAN NEEDED TO WAIT FOR DIALYSIS V.LAB.[facility] 02/05/19 0937DIFFERENTIAL [id number] 14:16:00 * Test Item Value Reference Range Interpretation Comments STAIN ACCEPTABILITY (test code = STN ACCEPTABLE) CABOT RINGS (test code = CAB) MORPHOLOGY COMMENT (test code = MOC) PLATELET ESTIMATE (test code = PLTEST) PLATELET MORPHOLOGY (test code = PLTMORPH) TO WAIT FOR DIALYSIS V.LAB.[facility] 02/05/19 [id number] 11:59:00* Test Item Value Reference Range Interpretation Comments GLUBED (test code = GLUBED) 169 mg/dL 74-106 H Performed by certified cream separator operator at [facility] [id number] 08:10:00* Test Item Value Reference Range Interpretation Comments GLUBED (test code = GLUBED) 240 mg/dL 74-106 H Performed by certified cream separator operator at [facility] [id number] 19:23:00* Test Item Value Reference Range Interpretation Comments GLUBED (test code = GLUBED) 84 mg/dL 74-106 N Performed by certified cream separator operator at [facility] [id number] 17:11:00* Test Item Value Reference Range Interpretation Comments GLUBED (test code = GLUBED) 95 mg/dL 74-106 N Performed by certified cream separator operator at [facility] [id number] 16:28:00* Test Item Value Reference Range Interpretation Comments GLUBED (test code = GLUBED) 58 mg/dL 74-106 L Performed by certified cream separator operator at [facility] - XR C-SPINE 2-3 [id number] 15:44:00 FAX: Leonel Smith Fo [place]: B St: ADM FAX: Wellington Hercules MD [phone] Name: ARY ALEJO [facility] : 1935 Age/S: 83/M [address] Unit #: [id number] Loc: V.30[address] [place] [address] Phys: Leonel Barrera DO Acct: [id number] Dis Date: Status: ADM IN PHONE #: [phone] Exam Date: 02/04/2019 1521 FAX #: [phone] Reason: pain EXAMS: CPT CODE: [id number] XR C-SPINE 2-3 VIEWS [id number] REASON FOR EXAM: pain EXAM ORDER DATE: 02/04/2019 12:00 AM Ordering Jerry: Leonel Barrera DO Location:[facility] PROCEDURE: - XR C-SPINE 2-3 VIEWS FINDINGS: 6 views of the cervical spine were obtained including odontoid views. Severe narrowing of the disc spaces seen throughout the cervical spine from C3 to C7 with partial fusion of the disc spaces of C3-4. The examination is limited due to patient's inability to position. The prevertebral soft tissue is unremarkable without evidence of hematoma. 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 No obvious evidence of cervical spine fracture. Additional correlation with MRI would be useful. at 7659 Reported and signed by: Tavares Brar M.D. CC: Leonel Barrera DO; Wellington Pace MD Technologist: RT CARSON(R) Trnscrd Date/Time/By: 02/04/2019 (4597) : By: Marcy Orig Print D/T: S: 02/04/2019 (9307) PAGE 1 Signed Report GLUBED 2019-02-04 11:23:00* Test Item Value Reference Range Interpretation Comments GLUBED (test code = GLUBED) 298 mg/dL 74-106 H Performed by certified cream separator operator at [facility] PROTHROMBIN [id number] 08:39:00* Test Item Value Reference Range Interpretation Comments PROTHROMBIN TIME PATIENT (test code = PTP) 37.6 seconds 9.0-14.0 H INTERNATIONAL NORMAL RATIO (test code = INR) 3.2 0.8-1.2 H The therapeutic range for oral anticoagulant therapy formost indications is an international normalized ratio (INR)of between 2.0 and 3.0. The recommended therapeutic INRrange for various clinical situations is listed below: Clinical Situation INR range Pulmonary e mbolism treatment (2.0-3.0)Venous thrombosis treatmentVenous thrombosis prophylaxis (high risk surgery)Prevention of systemic embolism from: Acute myocardial infarction Valvular heart disease Atrial fibrillation Mechanical prosthetic heart valves (2.5-3.5) IS PATIENT ON ANTICOAGULANTS? YLIST ANTICOAGULANTS [id number] 08:19:00* Test Item Value Reference Range Interpretation Comments GLUBED (test code = GLUBED) 187 mg/dL 74-106 H Performed by certified cream separator operator at [facility] BASIC METABOLIC [id number] 23:44:00* Test Item Value Reference Range Interpretation Comments SODIUM (test code = NA) 143 mmol/L 136-145 N POTASSIUM (test code = K) 3.2 mmol/L 3.5-5.1 L CHLORIDE (test code = CL) 102.0 mmol/L 98-107 N CARBON DIOXIDE (test code = CO2) 32.0 mmol/L 21-32 N ANION GAP (test code = GAP) 12.2 10-20 N GLUCOSE (test code = GLU) 105 mg/dL 74-106 N BLOOD UREA NITROGEN (test code = BUN) 15 mg/dL 7-18 N GLOMERULAR FILTRATION RATE (test code = GFR) 18 mL/min >=60 Estimated GFR by using Modified MDRD formula.Chronic kidney disease is defined as either kidney damageor GFR <60 mL/min/1.73 m2 for >3 months. CREATININE (test code = CREAT) 3.30 mg/dL 0.7-1.3 H BUN/CREATININE RATIO (test code = BUN/CREA) 4.5 10-20 L CALCIUM (test code = CA) 8.6 mg/dL 8.5-10.1 N [id number] HRS2292 V.LAB.CC1 02/03/19 [id number] 23:25:00* Test Item Value Reference Range Interpretation Comments GLUBED (test code = GLUBED) 65 mg/dL 74-106 L Performed by certified cream separator operator at [facility] CBC W/AUTO [id number] 23:00:00* Test Item Value Reference Range Interpretation Comments WHITE BLOOD CELL (test code = WBC) 11.6 K/mm3 4.5-12.5 N RED BLOOD CELL (test code = RBC) 3.39 mill/mm3 4.0-5.8 L HEMOGLOBIN (test code = HGB) 10.0 gram/dL 13.0-17.5 L HEMATOCRIT (test code = HCT) 31.6 % 42.0-52.0 L MEAN CELL VOLUME (test code = MCV) 93.2 fL 80-98 N MEAN CELL HGB (test code = MCH) 29.5 picogram 27.0-33.0 N MEAN CELL HGB CONCETRATION (test code = MCHC) 31.6 gram/dL 33.0-36. 0 L RED CELL DISTRIBUTION WIDTH (test code = RDW) 15.6 % 11.6-16. 2 N RED CELL DISTRIBUTION WIDTH SD (test code = RDW-SD) 53.3 fL 37 .0-51.0 H PLATELET COUNT (test code = PLT) 304 K/mm3 150-450 N MEAN PLATELET VOLUME (test code = MPV) 10.3 fL 6.7-11.0 N NEUTROPHIL % (test code = NT%) 73.1 % 39.0-69.0 H IMMATURE GRANULOCYTE % (test code = IG%) 0.4 % 0.0-5.0 N LYMPHOCYTE % (test code = LY%) 11.0 % 25.0-55.0 L MONOCYTE % (test code = MO%) 10.4 % 0.0-10.0 H EOSINOPHIL % (test code = EO%) 4.2 % 0.0-5.0 N BASOPHIL % (test code = BA%) 0.9 % 0.0-1.0 N NUCLEATED RBC % (test code = NRBC%) 0.0 % 0-0 N NEUTROPHIL # (test code = NT#) 8.45 K/mm3 1.8-7.7 H IMMATURE GRANULOCYTE # (test code = IG#) 0.05 x10 3/uL 0-0.03 H LYMPHOCYTE # (test code = LY#) 1.27 K/mm3 1.0-5.0 N MONOCYTE # (test code = MO#) 1.20 K/mm3 0-0.8 H EOSINOPHIL # (test code = EO#) 0.48 K/mm3 0.0-0.5 N BASOPHIL # (test code = BA#) 0.10 K/mm3 0.0-0.2 N NUCLEATED RBC # (test code = NRBC#) 0.00 K/mm3 0.0-0.1 N MANUAL DIFF REQUIRED (test code = MDIFF) NO 02/03/19 [id number] COLLECT FROM DIALYSIS LIMB ALERTS BOTH V.LAB.CC 1103H ANDS [id number] 16:30:00* Test Item Value Reference Range Interpretation Comments GLUBED (test code = GLUBED) 161 mg/dL 74-106 H Performed by certified cream separator operator at [facility] [id number] 11:11:00* Test Item Value Reference Range Interpretation Comments GLUBED (test code = GLUBED) 389 mg/dL 74-106 H Performed by certified cream separator operator at [facility] CBC W/AUTO [id number] 10:03:00* Test Item Value Reference Range Interpretation Comments WHITE BLOOD CELL (test code = WBC) 11.4 K/mm3 4.5-12.5 N RED BLOOD CELL (test code = RBC) 3.21 mill/mm3 4.0-5.8 L HEMOGLOBIN (test code = HGB) 9.3 gram/dL 13.0-17.5 L HEMATOCRIT (test code = HCT) 31.4 % 42.0-52.0 L MEAN CELL VOLUME (test code = MCV) 97.8 fL 80-98 N MEAN CELL HGB (test code = MCH) 29.0 picogram 27.0-33.0 N MEAN CELL HGB CONCETRATION (test code = MCHC) 29.6 gram/dL 33.0-36. 0 L RED CELL DISTRIBUTION WIDTH (test code = RDW) 15.7 % 11.6-16. 2 N RED CELL DISTRIBUTION WIDTH SD (test code = RDW-SD) 56.6 fL 37 .0-51.0 H PLATELET COUNT (test code = PLT) 279 K/mm3 150-450 N MEAN PLATELET VOLUME (test code = MPV) 10.6 fL 6.7-11.0 N NEUTROPHIL % (test code = NT%) 70.2 % 39.0-69.0 H IMMATURE GRANULOCYTE % (test code = IG%) 0.7 % 0.0-5.0 N LYMPHOCYTE % (test code = LY%) 14.3 % 25.0-55.0 L MONOCYTE % (test code = MO%) 9.7 % 0.0-10.0 N EOSINOPHIL % (test code = EO%) 4.1 % 0.0-5.0 N BASOPHIL % (test code = BA%) 1.0 % 0.0-1.0 N NUCLEATED RBC % (test code = NRBC%) 0.0 % 0-0 N NEUTROPHIL # (test code = NT#) 7.97 K/mm3 1.8-7.7 H IMMATURE GRANULOCYTE # (test code = IG#) 0.08 x10 3/uL 0-0.03 H LYMPHOCYTE # (test code = LY#) 1.62 K/mm3 1.0-5.0 N MONOCYTE # (test code = MO#) 1.10 K/mm3 0-0.8 H EOSINOPHIL # (test code = EO#) 0.47 K/mm3 0.0-0.5 N BASOPHIL # (test code = BA#) 0.11 K/mm3 0.0-0.2 N NUCLEATED RBC # (test code = NRBC#) 0.00 K/mm3 0.0-0.1 N MANUAL DIFF REQUIRED (test code = MDIFF) NO, ONLY SCAN NEEDED DIFFERENTIAL [id number] 10:03:00* Test Item Value Reference Range Interpretation Comments STAIN ACCEPTABILITY (test code = STN ACCEPTABLE) STAIN ACCEPTABLE HYPOCHROMIA (test code = HYPO) 1+ BASOPHILIC STIPPLING (test code = STP) 1+ PLATELET ESTIMATE (test code = PLTEST) ADEQUATE PLATELET MORPHOLOGY (test code = PLTMORPH) NORMAL FEW CLUMPING SEEN. PROTHROMBIN [id number] 08:58:00* Test Item Value Reference Range Interpretation Comments PROTHROMBIN TIME PATIENT (test code = PTP) 42.6 seconds 9.0-14.0 H INTERNATIONAL NORMAL RATIO (test code = INR) 3.6 0.8-1.2 H The therapeutic range for oral anticoagulant therapy formost indications is an international normalized ratio (INR)of between 2.0 and 3.0. The recommended therapeutic INRrange for various clinical situations is listed below: Clinical Situation INR range Pulmonary e mbolism treatment (2.0-3.0)Venous thrombosis treatmentVenous thrombosis prophylaxis (high risk surgery)Prevention of systemic embolism from: Acute myocardial infarction Valvular heart disease Atrial fibrillation Mechanical prosthetic heart valves (2.5-3.5) IS PATIENT ON ANTICOAGULANTS? YLIST ANTICOAGULANTS COUMADINCBC W/AUTO DIFF 2019-02-03 08:12:00* Test Item Value Reference Range Interpretation Comments WHITE BLOOD CELL (test code = WBC) 11.4 K/mm3 4.5-12.5 N RED BLOOD CELL (test code = RBC) 3.21 mill/mm3 4.0-5.8 L HEMOGLOBIN (test code = HGB) 9.3 gram/dL 13.0-17.5 L HEMATOCRIT (test code = HCT) 31.4 % 42.0-52.0 L MEAN CELL VOLUME (test code = MCV) 97.8 fL 80-98 N MEAN CELL HGB (test code = MCH) 29.0 picogram 27.0-33.0 N MEAN CELL HGB CONCETRATION (test code = MCHC) 29.6 gram/dL 33.0-36. 0 L RED CELL DISTRIBUTION WIDTH (test code = RDW) 15.7 % 11.6-16. 2 N RED CELL DISTRIBUTION WIDTH SD (test code = RDW-SD) 56.6 fL 37 .0-51.0 H PLATELET COUNT (test code = PLT) 279 K/mm3 150-450 N MEAN PLATELET VOLUME (test code = MPV) 10.6 fL 6.7-11.0 N NEUTROPHIL % (test code = NT%) 70.2 % 39.0-69.0 H IMMATURE GRANULOCYTE % (test code = IG%) 0.7 % 0.0-5.0 N LYMPHOCYTE % (test code = LY%) 14.3 % 25.0-55.0 L MONOCYTE % (test code = MO%) 9.7 % 0.0-10.0 N EOSINOPHIL % (test code = EO%) 4.1 % 0.0-5.0 N BASOPHIL % (test code = BA%) 1.0 % 0.0-1.0 N NUCLEATED RBC % (test code = NRBC%) 0.0 % 0-0 N NEUTROPHIL # (test code = NT#) 7.97 K/mm3 1.8-7.7 H IMMATURE GRANULOCYTE # (test code = IG#) 0.08 x10 3/uL 0-0.03 H LYMPHOCYTE # (test code = LY#) 1.62 K/mm3 1.0-5.0 N MONOCYTE # (test code = MO#) 1.10 K/mm3 0-0.8 H EOSINOPHIL # (test code = EO#) 0.47 K/mm3 0.0-0.5 N BASOPHIL # (test code = BA#) 0.11 K/mm3 0.0-0.2 N NUCLEATED RBC # (test code = NRBC#) 0.00 K/mm3 0.0-0.1 N MANUAL DIFF REQUIRED (test code = MDIFF) NO, ONLY SCAN NEEDED DIFFERENTIAL [id number] 08:12:00* Test Item Value Reference Range Interpretation Comments STAIN ACCEPTABILITY (test code = STN ACCEPTABLE) CABOT RINGS (test code = CAB) MORPHOLOGY COMMENT (test code = MOC) PLATELET ESTIMATE (test code = PLTEST) PLATELET MORPHOLOGY (test code = PLTMORPH) CBC W/AUTO [id number] 08:12:00* Test Item Value Reference Range Interpretation Comments WHITE BLOOD CELL (test code = WBC) 11.4 K/mm3 4.5-12.5 N RED BLOOD CELL (test code = RBC) 3.21 mill/mm3 4.0-5.8 L HEMOGLOBIN (test code = HGB) 9.3 gram/dL 13.0-17.5 L HEMATOCRIT (test code = HCT) 31.4 % 42.0-52.0 L MEAN CELL VOLUME (test code = MCV) 97.8 fL 80-98 N MEAN CELL HGB (test code = MCH) 29.0 picogram 27.0-33.0 N MEAN CELL HGB CONCETRATION (test code = MCHC) 29.6 gram/dL 33.0-36. 0 L RED CELL DISTRIBUTION WIDTH (test code = RDW) 15.7 % 11.6-16. 2 N RED CELL DISTRIBUTION WIDTH SD (test code = RDW-SD) 56.6 fL 37 .0-51.0 H PLATELET COUNT (test code = PLT) 279 K/mm3 150-450 N MEAN PLATELET VOLUME (test code = MPV) 10.6 fL 6.7-11.0 N NEUTROPHIL % (test code = NT%) 70.2 % 39.0-69.0 H IMMATURE GRANULOCYTE % (test code = IG%) 0.7 % 0.0-5.0 N LYMPHOCYTE % (test code = LY%) 14.3 % 25.0-55.0 L MONOCYTE % (test code = MO%) 9.7 % 0.0-10.0 N EOSINOPHIL % (test code = EO%) 4.1 % 0.0-5.0 N BASOPHIL % (test code = BA%) 1.0 % 0.0-1.0 N NUCLEATED RBC % (test code = NRBC%) 0.0 % 0-0 N NEUTROPHIL # (test code = NT#) 7.97 K/mm3 1.8-7.7 H IMMATURE GRANULOCYTE # (test code = IG#) 0.08 x10 3/uL 0-0.03 H LYMPHOCYTE # (test code = LY#) 1.62 K/mm3 1.0-5.0 N MONOCYTE # (test code = MO#) 1.10 K/mm3 0-0.8 H EOSINOPHIL # (test code = EO#) 0.47 K/mm3 0.0-0.5 N BASOPHIL # (test code = BA#) 0.11 K/mm3 0.0-0.2 N NUCLEATED RBC # (test code = NRBC#) 0.00 K/mm3 0.0-0.1 N MANUAL DIFF REQUIRED (test code = MDIFF) NO, ONLY SCAN NEEDED DIFFERENTIAL [id number] 08:12:00* Test Item Value Reference Range Interpretation Comments STAIN ACCEPTABILITY (test code = STN ACCEPTABLE) CABOT RINGS (test code = CAB) MORPHOLOGY COMMENT (test code = MOC) PLATELET ESTIMATE (test code = PLTEST) PLATELET MORPHOLOGY (test code = PLTMORPH) CBC W/AUTO [id number] 08:12:00* Test Item Value Reference Range Interpretation Comments WHITE BLOOD CELL (test code = WBC) 11.4 K/mm3 4.5-12.5 N RED BLOOD CELL (test code = RBC) 3.21 mill/mm3 4.0-5.8 L HEMOGLOBIN (test code = HGB) 9.3 gram/dL 13.0-17.5 L HEMATOCRIT (test code = HCT) 31.4 % 42.0-52.0 L MEAN CELL VOLUME (test code = MCV) 97.8 fL 80-98 N MEAN CELL HGB (test code = MCH) 29.0 picogram 27.0-33.0 N MEAN CELL HGB CONCETRATION (test code = MCHC) 29.6 gram/dL 33.0-36. 0 L RED CELL DISTRIBUTION WIDTH (test code = RDW) 15.7 % 11.6-16. 2 N RED CELL DISTRIBUTION WIDTH SD (test code = RDW-SD) 56.6 fL 37 .0-51.0 H PLATELET COUNT (test code = PLT) 279 K/mm3 150-450 N MEAN PLATELET VOLUME (test code = MPV) 10.6 fL 6.7-11.0 N NEUTROPHIL % (test code = NT%) 70.2 % 39.0-69.0 H IMMATURE GRANULOCYTE % (test code = IG%) 0.7 % 0.0-5.0 N LYMPHOCYTE % (test code = LY%) 14.3 % 25.0-55.0 L MONOCYTE % (test code = MO%) 9.7 % 0.0-10.0 N EOSINOPHIL % (test code = EO%) 4.1 % 0.0-5.0 N BASOPHIL % (test code = BA%) 1.0 % 0.0-1.0 N NUCLEATED RBC % (test code = NRBC%) 0.0 % 0-0 N NEUTROPHIL # (test code = NT#) 7.97 K/mm3 1.8-7.7 H IMMATURE GRANULOCYTE # (test code = IG#) 0.08 x10 3/uL 0-0.03 H LYMPHOCYTE # (test code = LY#) 1.62 K/mm3 1.0-5.0 N MONOCYTE # (test code = MO#) 1.10 K/mm3 0-0.8 H EOSINOPHIL # (test code = EO#) 0.47 K/mm3 0.0-0.5 N BASOPHIL # (test code = BA#) 0.11 K/mm3 0.0-0.2 N NUCLEATED RBC # (test code = NRBC#) 0.00 K/mm3 0.0-0.1 N MANUAL DIFF REQUIRED (test code = MDIFF) NO, ONLY SCAN NEEDED DIFFERENTIAL [id number] 08:12:00* Test Item Value Reference Range Interpretation Comments STAIN ACCEPTABILITY (test code = STN ACCEPTABLE) MORPHOLOGY COMMENT (test code = MOC) PLATELET ESTIMATE (test code = PLTEST) PLATELET MORPHOLOGY (test code = PLTMORPH) CBC W/AUTO [id number] 08:12:00* Test Item Value Reference Range Interpretation Comments WHITE BLOOD CELL (test code = WBC) 11.4 K/mm3 4.5-12.5 N RED BLOOD CELL (test code = RBC) 3.21 mill/mm3 4.0-5.8 L HEMOGLOBIN (test code = HGB) 9.3 gram/dL 13.0-17.5 L HEMATOCRIT (test code = HCT) 31.4 % 42.0-52.0 L MEAN CELL VOLUME (test code = MCV) 97.8 fL 80-98 N MEAN CELL HGB (test code = MCH) 29.0 picogram 27.0-33.0 N MEAN CELL HGB CONCETRATION (test code = MCHC) 29.6 gram/dL 33.0-36. 0 L RED CELL DISTRIBUTION WIDTH (test code = RDW) 15.7 % 11.6-16. 2 N RED CELL DISTRIBUTION WIDTH SD (test code = RDW-SD) 56.6 fL 37 .0-51.0 H PLATELET COUNT (test code = PLT) 279 K/mm3 150-450 N MEAN PLATELET VOLUME (test code = MPV) 10.6 fL 6.7-11.0 N NEUTROPHIL % (test code = NT%) 70.2 % 39.0-69.0 H IMMATURE GRANULOCYTE % (test code = IG%) 0.7 % 0.0-5.0 N LYMPHOCYTE % (test code = LY%) 14.3 % 25.0-55.0 L MONOCYTE % (test code = MO%) 9.7 % 0.0-10.0 N EOSINOPHIL % (test code = EO%) 4.1 % 0.0-5.0 N BASOPHIL % (test code = BA%) 1.0 % 0.0-1.0 N NUCLEATED RBC % (test code = NRBC%) 0.0 % 0-0 N NEUTROPHIL # (test code = NT#) 7.97 K/mm3 1.8-7.7 H IMMATURE GRANULOCYTE # (test code = IG#) 0.08 x10 3/uL 0-0.03 H LYMPHOCYTE # (test code = LY#) 1.62 K/mm3 1.0-5.0 N MONOCYTE # (test code = MO#) 1.10 K/mm3 0-0.8 H EOSINOPHIL # (test code = EO#) 0.47 K/mm3 0.0-0.5 N BASOPHIL # (test code = BA#) 0.11 K/mm3 0.0-0.2 N NUCLEATED RBC # (test code = NRBC#) 0.00 K/mm3 0.0-0.1 N MANUAL DIFF REQUIRED (test code = MDIFF) NO, ONLY SCAN NEEDED DIFFERENTIAL [id number] 08:12:00* Test Item Value Reference Range Interpretation Comments STAIN ACCEPTABILITY (test code = STN ACCEPTABLE) CABOT RINGS (test code = CAB) MORPHOLOGY COMMENT (test code = MOC) PLATELET ESTIMATE (test code = PLTEST) PLATELET MORPHOLOGY (test code = PLTMORPH) [id number] 07:48:00* Test Item Value Reference Range Interpretation Comments GLUBED (test code = GLUBED) 209 mg/dL 74-106 H Performed by certified cream separator operator at [facility] [id number] 21:01:00* Test Item Value Reference Range Interpretation Comments GLUBED (test code = GLUBED) 148 mg/dL 74-106 H Performed by certified cream separator operator at [facility] [id number] 17:53:00* Test Item Value Reference Range Interpretation Comments GLUBED (test code = GLUBED) 133 mg/dL 74-106 H Performed by certified cream separator operator at [facility] [id number] 16:47:00* Test Item Value Reference Range Interpretation Comments GLUBED (test code = GLUBED) 69 mg/dL 74-106 L Performed by certified cream separator operator at [facility] [id number] 11:41:00* Test Item Value Reference Range Interpretation Comments GLUBED (test code = GLUBED) 196 mg/dL 74-106 H Performed by certified cream separator operator at [facility] PROTHROMBIN [id number] 10:31:00* Test Item Value Reference Range Interpretation Comments PROTHROMBIN TIME PATIENT (test code = PTP) 55.4 seconds 9.0-14.0 H INTERNATIONAL NORMAL RATIO (test code = INR) 4.7 0.8-1.2 H The therapeutic range for oral anticoagulant therapy formost indications is an international normalized ratio (INR)of between 2.0 and 3.0. The recommended therapeutic INRrange for various clinical situations is listed below: Clinical Situation INR range Pulmonary e mbolism treatment (2.0-3.0)Venous thrombosis treatmentVenous thrombosis prophylaxis (high risk surgery)Prevention of systemic embolism from: Acute myocardial infarction Valvular heart disease Atrial fibrillation Mechanical prosthetic heart valves (2.5-3.5) IS PATIENT ON ANTICOAGULANTS? YLIST ANTICOAGULANTS [id number] 08:28:00* Test Item Value Reference Range Interpretation Comments GLUBED (test code = GLUBED) 280 mg/dL 74-106 H Performed by certified cream separator operator at [facility] [id number] 19:49:00* Test Item Value Reference Range Interpretation Comments GLUBED (test code = GLUBED) 221 mg/dL 74-106 H Performed by certified cream separator operator at [facility] [id number] 17:13:00* Test Item Value Reference Range Interpretation Comments GLUBED (test code = GLUBED) 293 mg/dL 74-106 H Performed by certified cream separator operator at [facility] PROTHROMBIN [id number] 15:43:00* Test Item Value Reference Range Interpretation Comments PROTHROMBIN TIME PATIENT (test code = PTP) 56.5 seconds 9.0-14.0 H INTERNATIONAL NORMAL RATIO (test code = INR) 4.8 0.8-1.2 H The therapeutic range for oral anticoagulant therapy formost indications is an international normalized ratio (INR)of between 2.0 and 3.0. The recommended therapeutic INRrange for various clinical situations is listed below: Clinical Situation INR range Pulmonary e mbolism treatment (2.0-3.0)Venous thrombosis treatmentVenous thrombosis prophylaxis (high risk surgery)Prevention of systemic embolism from: Acute myocardial infarction Valvular heart disease Atrial fibrillation Mechanical prosthetic heart valves (2.5-3.5) 02/01/19 1446IS PATIENT ON ANTICOAGULANTS? YLIST ANTICOAGULANTS COUMADIN [id number] 15:19:00* Test Item Value Reference Range Interpretation Comments GLUBED (test code = GLUBED) 333 mg/dL 74-106 H Performed by certified cream separator operator at [facility] [id number] 11:30:00* Test Item Value Reference Range Interpretation Comments GLUBED (test code = GLUBED) 297 mg/dL 74-106 H Performed by certified cream separator operator at [facility] [id number] 08:50:00* Test Item Value Reference Range Interpretation Comments GLUBED (test code = GLUBED) 308 mg/dL 74-106 H Performed by certified cream separator operator at [facility] PROTHROMBIN [id number] 05:42:00* Test Item Value Reference Range Interpretation Comments PROTHROMBIN TIME PATIENT (test code = PTP) 56.7 seconds 9.0-14.0 H INTERNATIONAL NORMAL RATIO (test code = INR) 4.8 0.8-1.2 H The therapeutic range for oral anticoagulant therapy formost indications is an international normalized ratio (INR)of between 2.0 and 3.0. The recommended therapeutic INRrange for various clinical situations is listed below: Clinical Situation INR range Pulmonary e mbolism treatment (2.0-3.0)Venous thrombosis treatmentVenous thrombosis prophylaxis (high risk surgery)Prevention of systemic embolism from: Acute myocardial infarction Valvular heart disease Atrial fibrillation Mechanical prosthetic heart valves (2.5-3.5) IS PATIENT ON ANTICOAGULANTS? YLIST ANTICOAGULANTS [id number] 05:40:00* Test Item Value Reference Range Interpretation Comments GLUBED (test code = GLUBED) 283 mg/dL 74-106 H Performed by certified cream separator operator at [facility] [id number] 22:34:00* Test Item Value Reference Range Interpretation Comments GLUBED (test code = GLUBED) 226 mg/dL 74-106 H Performed by certified cream separator operator at [facility] [id number] 18:33:00* Test Item Value Reference Range Interpretation Comments GLUBED (test code = GLUBED) 281 mg/dL 74-106 H Performed by certified cream separator operator at [facility] [id number] 16:41:00* Test Item Value Reference Range Interpretation Comments GLUBED (test code = GLUBED) 36 mg/dL 74-106 LL [facility]ified Nurse~ [id number] 16:41:00* Test Item Value Reference Range Interpretation Comments GLUBED (test code = GLUBED) 337 mg/dL 74-106 H Performed by certified cream separator operator at [facility] - XR CHEST 1 [id number] 08:04:00 FAX: Trice Ruiz MD [phone] [place]: St: ADM FAX: Wellington Hercules MD [phone] Name: MELOARY LABMERT [facility] : 1935 Age/S: 83/M [address] [facility] Unit #: [id number] Loc: V.2045 [place] [address] Phys: Trice Hurtado MD Acct: [id number] Dis Date: Status: ADM IN PHONE #: [phone] Exam Date: 01/31/2019 0755 FAX #: [phone] Reason: Pneumonia EXAMS: CPT CODE: [id number] XR CHEST 1 V 03151 CLINICAL HISTORY: Pneumonia TECHNIQUE: AP chest x-ray COMPARISON: 01/28/19 IMPRESSION: Improved right infrahilar airspace opacification. No pleural effusion. Cardiomegaly. Atherosclerotic vascular calcification of the thoracic aorta. Right permacath. LOCATION: LP E lectronically Signed by Willow Robles D.O. on 01/31/2019 at 0804 Reported and signed by: Willow Robles D.O. CC: Trice Hurtado MD; Wellington Pace MD Technologist: STEPHANE CHOI RT(R) Trnscrd Date/Time/By: 01/31/2019 (0804) : By: Santino NEWMANP1 Orig Print D/T: S: 01/31/2019 (7582) PAGE 1 Signed Report COMPREHENSIVE METABOLIC [id number] 06:43:00* Test Item Value Reference Range Interpretation Comments SODIUM (test code = NA) 140 mmol/L 136-145 N POTASSIUM (test code = K) 4.0 mmol/L 3.5-5.1 N CHLORIDE (test code = CL) 101.0 mmol/L 98-107 N CARBON DIOXIDE (test code = CO2) 27.0 mmol/L 21-32 N ANION GAP (test code = GAP) 16.0 10-20 N GLUCOSE (test code = GLU) 302 mg/dL 74-106 H BLOOD UREA NITROGEN (test code = BUN) 63 mg/dL 7-18 H GLOMERULAR FILTRATION RATE (test code = GFR) 8 mL/min >=60 Estimated GFR by using Modified MDRD formula.Chronic kidney disease is defined as either kidney damageor GFR <60 mL/min/1.73 m2 for >3 months. CREATININE (test code = CREAT) 7.00 mg/dL 0.7-1.3 H BUN/CREATININE RATIO (test code = BUN/CREA) 8.9 10-20 L TOTAL PROTEIN (test code = PROT) 7.4 gram/dL 6.4-8.2 N ALBUMIN (test code = ALB) 3.4 g/dL 3.4-5.0 N GLOBULIN (test code = GLOB) 4.0 gram/dL 2.7-4.2 N ALBUMIN/GLOBULIN RATIO (test code = A/G) 0.8 0.75-1.50 N CALCIUM (test code = CA) 9.2 mg/dL 8.5-10.1 N BILIRUBIN TOTAL (test code = BILT) 0.40 mg/dL 0.0-1.0 N SGOT/AST (test code = AST) 23 IUnit/L 15-37 N SGPT/ALT (test code = ALT) 24 IUnit/L 12-78 N ALKALINE PHOSPHATASE TOTAL (test code = ALKP) 88 IUnit/L 45-117 N Note change in reference range due to change in reagent. COMPREHENSIVE METABOLIC [id number] 06:37:00* Test Item Value Reference Range Interpretation Comments SODIUM (test code = NA) 140 mmol/L 136-145 N POTASSIUM (test code = K) 4.0 mmol/L 3.5-5.1 N CHLORIDE (test code = CL) 101.0 mmol/L 98-107 N CARBON DIOXIDE (test code = CO2) mmol/L 21-32 ANION GAP (test code = GAP) 10-20 GLUCOSE (test code = GLU) mg/dL 74-106 BLOOD UREA NITROGEN (test code = BUN) mg/dL 7-18 GLOMERULAR FILTRATION RATE (test code = GFR) mL/min >=60 CREATININE (test code = CREAT) mg/dL 0.7-1.3 BUN/CREATININE RATIO (test code = BUN/CREA) 10-20 TOTAL PROTEIN (test code = PROT) gram/dL 6.4-8.2 ALBUMIN (test code = ALB) g/dL 3.4-5.0 GLOBULIN (test code = GLOB) gram/dL 2.7-4.2 ALBUMIN/GLOBULIN RATIO (test code = A/G) 0.75-1.50 CALCIUM (test code = CA) mg/dL 8.5-10.1 BILIRUBIN TOTAL (test code = BILT) mg/dL 0.0-1.0 SGOT/AST (test code = AST) IUnit/L 15-37 SGPT/ALT (test code = ALT) IUnit/L 12-78 ALKALINE PHOSPHATASE TOTAL (test code = ALKP) IUnit/L 45-117 PROTHROMBIN [id number] 06:33:00* Test Item Value Reference Range Interpretation Comments PROTHROMBIN TIME PATIENT (test code = PTP) 43.7 seconds 9.0-14.0 H INTERNATIONAL NORMAL RATIO (test code = INR) 3.7 0.8-1.2 H The therapeutic range for oral anticoagulant therapy formost indications is an international normalized ratio (INR)of between 2.0 and 3.0. The recommended therapeutic INRrange for various clinical situations is listed below: Clinical Situation INR range Pulmonary e mbolism treatment (2.0-3.0)Venous thrombosis treatmentVenous thrombosis prophylaxis (high risk surgery)Prevention of systemic embolism from: Acute myocardial infarction Valvular heart disease Atrial fibrillation Mechanical prosthetic heart valves (2.5-3.5) IS PATIENT ON ANTICOAGULANTS? YLIST ANTICOAGULANTS COUMADINCBC W/AUTO DIFF 2019-01-31 06:25:00* Test Item Value Reference Range Interpretation Comments WHITE BLOOD CELL (test code = WBC) 11.5 K/mm3 4.5-12.5 N RED BLOOD CELL (test code = RBC) 3.52 mill/mm3 4.0-5.8 L HEMOGLOBIN (test code = HGB) 10.2 gram/dL 13.0-17.5 L HEMATOCRIT (test code = HCT) 33.7 % 42.0-52.0 L MEAN CELL VOLUME (test code = MCV) 95.7 fL 80-98 N MEAN CELL HGB (test code = MCH) 29.0 picogram 27.0-33.0 N MEAN CELL HGB CONCETRATION (test code = MCHC) 30.3 gram/dL 33.0-36. 0 L RED CELL DISTRIBUTION WIDTH (test code = RDW) 15.9 % 11.6-16. 2 N RED CELL DISTRIBUTION WIDTH SD (test code = RDW-SD) 55.3 fL 37 .0-51.0 H PLATELET COUNT (test code = PLT) 307 K/mm3 150-450 N MEAN PLATELET VOLUME (test code = MPV) 10.7 fL 6.7-11.0 N NEUTROPHIL % (test code = NT%) 74.4 % 39.0-69.0 H IMMATURE GRANULOCYTE % (test code = IG%) 0.6 % 0.0-5.0 N LYMPHOCYTE % (test code = LY%) 11.4 % 25.0-55.0 L MONOCYTE % (test code = MO%) 9.9 % 0.0-10.0 N EOSINOPHIL % (test code = EO%) 3.1 % 0.0-5.0 N BASOPHIL % (test code = BA%) 0.6 % 0.0-1.0 N NUCLEATED RBC % (test code = NRBC%) 0.0 % 0-0 N NEUTROPHIL # (test code = NT#) 8.58 K/mm3 1.8-7.7 H IMMATURE GRANULOCYTE # (test code = IG#) 0.07 x10 3/uL 0-0.03 H LYMPHOCYTE # (test code = LY#) 1.31 K/mm3 1.0-5.0 N MONOCYTE # (test code = MO#) 1.14 K/mm3 0-0.8 H EOSINOPHIL # (test code = EO#) 0.36 K/mm3 0.0-0.5 N BASOPHIL # (test code = BA#) 0.07 K/mm3 0.0-0.2 N NUCLEATED RBC # (test code = NRBC#) 0.00 K/mm3 0.0-0.1 N MANUAL DIFF REQUIRED (test code = MDIFF) NO [id number] 05:47:00* Test Item Value Reference Range Interpretation Comments GLUBED (test code = GLUBED) 300 mg/dL 74-106 H Performed by certified cream separator operator at [facility] [id number] 22:02:00* Test Item Value Reference Range Interpretation Comments GLUBED (test code = GLUBED) 243 mg/dL 74-106 H Performed by certified cream separator operator at [facility] [id number] 21:20:00* Test Item Value Reference Range Interpretation Comments GLUBED (test code = GLUBED) 284 mg/dL 74-106 H Performed by certified cream separator operator at [facility] [id number] 17:13:00* Test Item Value Reference Range Interpretation Comments GLUBED (test code = GLUBED) 101 mg/dL 74-106 N Performed by certified cream separator operator at [facility] [id number] 14:03:00* Test Item Value Reference Range Interpretation Comments GLUBED (test code = GLUBED) 311 mg/dL 74-106 H Performed by certified cream separator operator at [facility] [id number] 07:07:00* Test Item Value Reference Range Interpretation Comments GLUBED (test code = GLUBED) 311 mg/dL 74-106 H [facility] [id number] 21:32:00* Test Item Value Reference Range Interpretation Comments GLUBED (test code = GLUBED) 371 mg/dL 74-106 H [facility] [id number] 17:59:00* Test Item Value Reference Range Interpretation Comments GLUBED (test code = GLUBED) 178 mg/dL 74-106 H Performed by certified cream separator operator at [facility] [id number] 05:36:00* Test Item Value Reference Range Interpretation Comments GLUBED (test code = GLUBED) 357 mg/dL 74-106 H Performed by certified cream separator operator at [facility] BASIC METABOLIC [id number] 05:16:00* Test Item Value Reference Range Interpretation Comments SODIUM (test code = NA) 139 mmol/L 136-145 N POTASSIUM (test code = K) 4.9 mmol/L 3.5-5.1 N CHLORIDE (test code = CL) 99.0 mmol/L 98-107 N CARBON DIOXIDE (test code = CO2) 24.0 mmol/L 21-32 N ANION GAP (test code = GAP) 20.9 10-20 H GLUCOSE (test code = GLU) 355 mg/dL 74-106 H BLOOD UREA NITROGEN (test code = BUN) 95 mg/dL 7-18 H GLOMERULAR FILTRATION RATE (test code = GFR) 6 mL/min >=60 Estimated GFR by using Modified MDRD formula.Chronic kidney disease is defined as either kidney damageor GFR <60 mL/min/1.73 m2 for >3 months. CREATININE (test code = CREAT) 8.20 mg/dL 0.7-1.3 H BUN/CREATININE RATIO (test code = BUN/CREA) 11.6 10-20 N CALCIUM (test code = CA) 9.5 mg/dL 8.5-10.1 N [id number] 05:16:00* Test Item Value Reference Range Interpretation Comments MAGNESIUM (test code = MAG) 2.7 mg/dL 1.8-2.4 H BASIC METABOLIC [id number] 05:09:00* Test Item Value Reference Range Interpretation Comments SODIUM (test code = NA) 139 mmol/L 136-145 N POTASSIUM (test code = K) 4.9 mmol/L 3.5-5.1 N CHLORIDE (test code = CL) 99.0 mmol/L 98-107 N CARBON DIOXIDE (test code = CO2) 24.0 mmol/L 21-32 N ANION GAP (test code = GAP) 20.9 10-20 H GLUCOSE (test code = GLU) 355 mg/dL 74-106 H BLOOD UREA NITROGEN (test code = BUN) 95 mg/dL 7-18 H GLOMERULAR FILTRATION RATE (test code = GFR) mL/min >=60 CREATININE (test code = CREAT) mg/dL 0.7-1.3 BUN/CREATININE RATIO (test code = BUN/CREA) 10-20 CALCIUM (test code = CA) 9.5 mg/dL 8.5-10.1 N [id number] 05:09:00* Test Item Value Reference Range Interpretation Comments MAGNESIUM (test code = MAG) 2.7 mg/dL 1.8-2.4 H PROTHROMBIN [id number] 04:58:00* Test Item Value Reference Range Interpretation Comments PROTHROMBIN TIME PATIENT (test code = PTP) 21.4 seconds 9.0-14.0 H INTERNATIONAL NORMAL RATIO (test code = INR) 1.8 0.8-1.2 H The therapeutic range for oral anticoagulant therapy formost indications is an international normalized ratio (INR)of between 2.0 and 3.0. The recommended therapeutic INRrange for various clinical situations is listed below: Clinical Situation INR range Pulmonary e mbolism treatment (2.0-3.0)Venous thrombosis treatmentVenous thrombosis prophylaxis (high risk surgery)Prevention of systemic embolism from: Acute myocardial infarction Valvular heart disease Atrial fibrillation Mechanical prosthetic heart valves (2.5-3.5) IS PATIENT ON ANTICOAGULANTS? YLIST ANTICOAGULANTS COUMADINCBC W/O DIFF 2019-01-29 04:57:00* Test Item Value Reference Range Interpretation Comments WHITE BLOOD CELL (test code = WBC) 14.7 K/mm3 4.5-12.5 H RED BLOOD CELL (test code = RBC) 3.56 mill/mm3 4.0-5.8 L HEMOGLOBIN (test code = HGB) 10.2 gram/dL 13.0-17.5 L HEMATOCRIT (test code = HCT) 35.1 % 42.0-52.0 L MEAN CELL VOLUME (test code = MCV) 98.6 fL 80-98 H MEAN CELL HGB (test code = MCH) 28.7 picogram 27.0-33.0 N MEAN CELL HGB CONCETRATION (test code = MCHC) 29.1 gram/dL 33.0-36. 0 L RED CELL DISTRIBUTION WIDTH (test code = RDW) 16.2 % 11.6-16. 2 N PLATELET COUNT (test code = PLT) 302 K/mm3 150-450 N MEAN PLATELET VOLUME (test code = MPV) 10.0 fL 6.7-11.0 N [id number] 20:30:00* Test Item Value Reference Range Interpretation Comments GLUBED (test code = GLUBED) 282 mg/dL 74-106 H Performed by certified cream separator operator at [facility] [id number] 16:17:00* Test Item Value Reference Range Interpretation Comments GLUBED (test code = GLUBED) 198 mg/dL 74-106 H Performed by certified cream separator operator at [facility] - XR SWLW FUNC W/C [id number] 14:34:00 FAX: Hollie Robles MD [place]: B St: ADM FAX: Wellington Hercules MD [phone] Name: MELOARY LAMBERT [facility] : 1935 Age/S: 83/M [place] Unit #: [id number] Loc: [place] [id number] Phys: Hollie Robles MD Acct: [id number] Dis Date: Status: ADM IN PHONE #: [phone] Exam Date: 01/28/2019 1350 FAX #: [phone] Reason: ASSESS SWALLOW EXAMS: CPT CODE: [id number] XR SWLW [facility] W/C V 20995 CLINICAL HISTORY: ASSESS SWALLOW TECHNIQUE: Fluoroscopic swallow function evaluation in conjunction with speech therapy. Fluoroscopy time 175 seconds;Dose: 20.8 mGy. IMPRESSION: Handling of varying consistencies of barium were evaluated. There was penetration with aspiration of the thin barium. There is also penetration with nectar consistency barium. No penetration or aspiration was seen with the puree consistency or mechanical soft barium. Please see separate speech pathology report for complete discussion. El ectronically Signed by Richi Godinez MD on 01/28/2019 at 143 Reported and signed by: Richi Godinez MD CC: Hollie Robles MD; Wellington Pace MD Technologist: RT LIANA(Jade) Trnscrd Date/Time/By: 01/28/2019 (7412) : By: [email or web address] Orig Print D/T: S: 01/28/2019 (3142) PAGE 1 Signed Report GLUBED 2019-01-28 11:37:00* Test Item Value Reference Range Interpretation Comments GLUBED (test code = GLUBED) 290 mg/dL 74-106 H Performed by certified cream separator operator at [facility] - XR CHEST 1 [id number] 08:46:00 FAX: Lex Gao [place]: B St: ADM FAX: Wellington Hercules MD [phone] Name: MELO,ARY LAMBERT [facility] : 1935 Age/S: 83/M [address] Unit #: [id number] [place] [address] Phys: Lex Gao Acct: [id number] Dis Date: Status: ADM IN PHONE #: [phone] Exam Date: 01/28/2019 0819 FAX #: [phone] Reason: respiratory failure EXAMS: CPT CODE: [id number] XR CHEST 1 V 50127 REASON FOR EXAM: respiratory failure Exam Order Date: 01/28/2019 7:30 AM Ordering Jerry: KAREN Mclean PROCEDURE: - XR CHEST 1 V COMPARISON: Frontal chest x-ray the previous afternoon FINDINGS: Previously seen enteric suction tube has been removed. Right IJ dialysis catheter is unchanged. Bibasilar opacities, worse on the right side, appear grossly similar when accounting for differences in patient positioning. These opacities likely represent a combination of atelectasis and consolidation. Cardiomediastinal silhouette is widened but stable in size. There are dege nerative changes throughout the spine. IMPRESSION: Interval removal of enteric suction tube. Cardiac pulmonary findings appear grossly unchanged. Location: [facility] Electronic ally Signed by Richi Godinez MD on 01/28/2019 at 0846 Repo rted and signed by: Richi Godinez MD CC: Lex Gao; Gianfranco Pace MD Technologist: Hodan Valente(R) Trnscrd Date/Time/By: 01/28/2019 (0846) : By: [email or web address] Orig Print D/T: S: 01/28/2019 (0849) PAGE 1 Signed Report [id number] 07:42:00 * Test Item Value Reference Range Interpretation Comments GLUBED (test code = GLUBED) 259 mg/dL 74-106 H Performed by certified cream separator operator at [facility] BASIC METABOLIC [id number] 06:31:00* Test Item Value Reference Range Interpretation Comments SODIUM (test code = NA) 143 mmol/L 136-145 N POTASSIUM (test code = K) 4.8 mmol/L 3.5-5.1 N CHLORIDE (test code = CL) 102.0 mmol/L 98-107 N CARBON DIOXIDE (test code = CO2) 27.0 mmol/L 21-32 N ANION GAP (test code = GAP) 18.8 10-20 N GLUCOSE (test code = GLU) 270 mg/dL 74-106 H BLOOD UREA NITROGEN (test code = BUN) 73 mg/dL 7-18 H GLOMERULAR FILTRATION RATE (test code = GFR) 9 mL/min >=60 Estimated GFR by using Modified MDRD formula.Chronic kidney disease is defined as either kidney damageor GFR <60 mL/min/1.73 m2 for >3 months. CREATININE (test code = CREAT) 6.30 mg/dL 0.7-1.3 H BUN/CREATININE RATIO (test code = BUN/CREA) 11.6 10-20 N CALCIUM (test code = CA) 9.5 mg/dL 8.5-10.1 N [id number] 06:31:00* Test Item Value Reference Range Interpretation Comments MAGNESIUM (test code = MAG) 2.4 mg/dL 1.8-2.4 N BASIC METABOLIC [id number] 06:25:00* Test Item Value Reference Range Interpretation Comments SODIUM (test code = NA) 143 mmol/L 136-145 N POTASSIUM (test code = K) 4.8 mmol/L 3.5-5.1 N CHLORIDE (test code = CL) 102.0 mmol/L 98-107 N CARBON DIOXIDE (test code = CO2) mmol/L 21-32 ANION GAP (test code = GAP) 10-20 GLUCOSE (test code = GLU) mg/dL 74-106 BLOOD UREA NITROGEN (test code = BUN) mg/dL 7-18 GLOMERULAR FILTRATION RATE (test code = GFR) mL/min >=60 CREATININE (test code = CREAT) mg/dL 0.7-1.3 BUN/CREATININE RATIO (test code = BUN/CREA) 10-20 CALCIUM (test code = CA) mg/dL 8.5-10.1 [id number] 06:25:00* Test Item Value Reference Range Interpretation Comments MAGNESIUM (test code = MAG) mg/dL 1.8-2.4 PROTHROMBIN [id number] 05:18:00* Test Item Value Reference Range Interpretation Comments PROTHROMBIN TIME PATIENT (test code = PTP) 18.2 seconds 9.0-14.0 H INTERNATIONAL NORMAL RATIO (test code = INR) 1.5 0.8-1.2 H The therapeutic range for oral anticoagulant therapy formost indications is an international normalized ratio (INR)of between 2.0 and 3.0. The recommended therapeutic INRrange for various clinical situations is listed below: Clinical Situation INR range Pulmonary e mbolism treatment (2.0-3.0)Venous thrombosis treatmentVenous thrombosis prophylaxis (high risk surgery)Prevention of systemic embolism from: Acute myocardial infarction Valvular heart disease Atrial fibrillation Mechanical prosthetic heart valves (2.5-3.5) IS PATIENT ON ANTICOAGULANTS? YLIST ANTICOAGULANTS COUMADINCBC W/O DIFF 2019-01-28 05:08:00* Test Item Value Reference Range Interpretation Comments WHITE BLOOD CELL (test code = WBC) 14.5 K/mm3 4.5-12.5 H RED BLOOD CELL (test code = RBC) 3.42 mill/mm3 4.0-5.8 L HEMOGLOBIN (test code = HGB) 10.0 gram/dL 13.0-17.5 L HEMATOCRIT (test code = HCT) 33.7 % 42.0-52.0 L MEAN CELL VOLUME (test code = MCV) 98.5 fL 80-98 H MEAN CELL HGB (test code = MCH) 29.2 picogram 27.0-33.0 N MEAN CELL HGB CONCETRATION (test code = MCHC) 29.7 gram/dL 33.0-36. 0 L RED CELL DISTRIBUTION WIDTH (test code = RDW) 16.2 % 11.6-16. 2 N PLATELET COUNT (test code = PLT) 296 K/mm3 150-450 N MEAN PLATELET VOLUME (test code = MPV) 10.3 fL 6.7-11.0 N [id number] 20:43:00* Test Item Value Reference Range Interpretation Comments GLUBED (test code = GLUBED) 213 mg/dL 74-106 H Performed by certified cream separator operator at [facility] [id number] 19:12:00* Test Item Value Reference Range Interpretation Comments GLUBED (test code = GLUBED) 222 mg/dL 74-106 H Performed by certified cream separator operator at [facility] ARTERIAL BLOOD [id number] 17:58:00* Test Item Value Reference Range Interpretation Comments ARTERIAL BLOOD GAS PH (test code = PHA) 7.43 7.35-7.45 N ARTERIAL BLOOD GAS PCO2 (test code = PCO2A) 39.8 mm Hg 35-45 N ARTERIAL BLOOD GAS PO2 (test code = PO2A) 253.2 mmHg 80-100 H BICARBONATE TOTAL HCO3 (test code = HCO3) 25.9 mmol/L 23.0-27.0 N BASE EXCESS (test code = RAJAN) 1.6 mmol/L -3.0-5.0 N ABG O2 SATURATION (test code = SATA) 99.1 % 90.0-98.0 H ABG TYPE (test code = TYPEA) Arterial FIO2 (test code = FIO2A) 100.0 ABG SITE (test code = SITEA) Lt RADIAL ARTERY MODIFIED ALLENS (test code = MODALL) Yes CHECK PERFORMED HEMATOCRIT (test code = HCT/ABG) 35 % 42-52 L TOTAL HGB (test code = THB) 11.8 gram/dL 13.0-17.5 L HGB O2 SAT (test code = HBOSAT) 98.1 % 94.00-98.00 H CARBOXYHEMOGLOBIN (test code = HOHGBT) 0.9 %totalHg 0.5-1.5 N METHEMOGLOBIN (test code = METHGB) 0.1 % 0.0-1.50 N O2 CONTENT (test code = O2CT) 16.9 % vol 18.0-22.0 L [id number] 17:06:00* Test Item Value Reference Range Interpretation Comments GLUBED (test code = GLUBED) 210 mg/dL 74-106 H Performed by certified cream separator operator at [facility] - XR CHEST 1 [id number] 13:35:00 FAX: Blanco Joshua [phone] [place]: B St: [facility] FAX: Wellington Hercules MD [phone] Name: ARY ALEJO [facility] : 1935 Age/S: 83/M [place] Unit #: [id number] Loc: V [place] [address] Phys: Blanco Joshua Acct: [id number] Dis Date: Status: ADM IN PHONE #: [phone] Exam Date: 01/27/2019 1255 FAX #: [phone] Reason: updated pulm view EXAMS: CPT CODE: [id number] XR CHEST 1 V 00106 REASON FOR EXAM: updated pulm view Exam Order Date: 01/27/2019 5:00 AM Ordering M.D.: KAREN Thorpe PROCEDURE: - XR CHEST 1 V COMPARISON: Frontal chest x-ray the previous morning FINDINGS: Life support lines and tubes are unchanged from the previous exam. The right lower lobe is atelectatic. Superimposed consolidation cannot be excluded. There is also subsegmental atelectasis in the left lower lobe. The upper lungs are clear. The cardiomediastinal silhouette is prominent but stable in size. There are degenerative changes in the spine. IMPRESSION: Opacification of the right lower lobe appears worse from the prior exam however this may partly be attributed to differences in patient positioning causing overlapping of shadows. This opacification likely r epresents atelectasis however superimposed consolidation cannot be exclu ded. Worsening atelectatic changes are also present in the left lower lo be. Superimposed consolidation cannot be excluded. Loc ation: [facility] at 1335 Reported and signed by: Richi Godinez MD CC: Blanco Pritchett; Wellington Pace MD Technologist: RT LIANA(Jade) Trnscrd Date/Time/By: 01/27/2019 (13 35) : By: [email or web address] Orig Print D/T: S: 01/27/2019 (5600) PAGE 1 Signed Report [id number] 12:43:00* Test Item Value Reference Range Interpretation Comments GLUBED (test code = GLUBED) 234 mg/dL 74-106 H Performed by certified cream separator operator at [facility] [id number] 08:25:00* Test Item Value Reference Range Interpretation Comments PHOSPHORUS (test code = PHOS) 7.6 mg/dL 2.5-4.9 H BASIC METABOLIC [id number] 05:41:00* Test Item Value Reference Range Interpretation Comments SODIUM (test code = NA) 146 mmol/L 136-145 H POTASSIUM (test code = K) 5.3 mmol/L 3.5-5.1 H CHLORIDE (test code = CL) 105.0 mmol/L 98-107 N CARBON DIOXIDE (test code = CO2) 26.0 mmol/L 21-32 N ANION GAP (test code = GAP) 20.3 10-20 H GLUCOSE (test code = GLU) 270 mg/dL 74-106 H BLOOD UREA NITROGEN (test code = BUN) 119 mg/dL 7-18 H GLOMERULAR FILTRATION RATE (test code = GFR) 6 mL/min >=60 Estimated GFR by using Modified MDRD formula.Chronic kidney disease is defined as either kidney damageor GFR <60 mL/min/1.73 m2 for >3 months. CREATININE (test code = CREAT) 8.80 mg/dL 0.7-1.3 H BUN/CREATININE RATIO (test code = BUN/CREA) 13.5 10-20 N CALCIUM (test code = CA) 9.8 mg/dL 8.5-10.1 N [id number] 05:41:00* Test Item Value Reference Range Interpretation Comments MAGNESIUM (test code = MAG) 2.9 mg/dL 1.8-2.4 H BASIC METABOLIC [id number] 05:34:00* Test Item Value Reference Range Interpretation Comments SODIUM (test code = NA) 146 mmol/L 136-145 H POTASSIUM (test code = K) 5.3 mmol/L 3.5-5.1 H CHLORIDE (test code = CL) 105.0 mmol/L 98-107 N CARBON DIOXIDE (test code = CO2) mmol/L 21-32 ANION GAP (test code = GAP) 10-20 GLUCOSE (test code = GLU) mg/dL 74-106 BLOOD UREA NITROGEN (test code = BUN) mg/dL 7-18 GLOMERULAR FILTRATION RATE (test code = GFR) mL/min >=60 CREATININE (test code = CREAT) mg/dL 0.7-1.3 BUN/CREATININE RATIO (test code = BUN/CREA) 10-20 CALCIUM (test code = CA) mg/dL 8.5-10.1 [id number] 05:34:00* Test Item Value Reference Range Interpretation Comments MAGNESIUM (test code = MAG) mg/dL 1.8-2.4 PROTHROMBIN [id number] 05:17:00* Test Item Value Reference Range Interpretation Comments PROTHROMBIN TIME PATIENT (test code = PTP) 19.5 seconds 9.0-14.0 H INTERNATIONAL NORMAL RATIO (test code = INR) 1.7 0.8-1.2 H The therapeutic range for oral anticoagulant therapy formost indications is an international normalized ratio (INR)of between 2.0 and 3.0. The recommended therapeutic INRrange for various clinical situations is listed below: Clinical Situation INR range Pulmonary e mbolism treatment (2.0-3.0)Venous thrombosis treatmentVenous thrombosis prophylaxis (high risk surgery)Prevention of systemic embolism from: Acute myocardial infarction Valvular heart disease Atrial fibrillation Mechanical prosthetic heart valves (2.5-3.5) IS PATIENT ON ANTICOAGULANTS? YLIST ANTICOAGULANTS COUMADINCBC W/O DIFF 2019-01-27 05:06:00* Test Item Value Reference Range Interpretation Comments WHITE BLOOD CELL (test code = WBC) 16.7 K/mm3 4.5-12.5 H RED BLOOD CELL (test code = RBC) 3.72 mill/mm3 4.0-5.8 L HEMOGLOBIN (test code = HGB) 10.8 gram/dL 13.0-17.5 L HEMATOCRIT (test code = HCT) 35.6 % 42.0-52.0 L MEAN CELL VOLUME (test code = MCV) 95.7 fL 80-98 N MEAN CELL HGB (test code = MCH) 29.0 picogram 27.0-33.0 N MEAN CELL HGB CONCETRATION (test code = MCHC) 30.3 gram/dL 33.0-36. 0 L RED CELL DISTRIBUTION WIDTH (test code = RDW) 16.6 % 11.6-16. 2 H PLATELET COUNT (test code = PLT) 322 K/mm3 150-450 N MEAN PLATELET VOLUME (test code = MPV) 9.8 fL 6.7-11.0 N [id number] 20:31:00* Test Item Value Reference Range Interpretation Comments GLUBED (test code = GLUBED) 221 mg/dL 74-106 H Performed by certified cream separator operator at [facility] [id number] 16:19:00* Test Item Value Reference Range Interpretation Comments GLUBED (test code = GLUBED) 201 mg/dL 74-106 H Performed by certified cream separator operator at [facility] [id number] 10:59:00* Test Item Value Reference Range Interpretation Comments GLUBED (test code = GLUBED) 366 mg/dL 74-106 H Performed by certified cream separator operator at [facility] - XR CHEST 1 [id number] 07:39:00 FAX: Blanco Joshua [phone] [place]: B St: ADM FAX: Wellington Hercules MD [phone] Name: ARY ALEJO [facility] : 1935 Age/S: 83/M [address] [facility] Unit #: [id number] Loc: VEmperatrizS15 [place] [address] Phys: Blanco Joshua Acct: [id number] Dis Date: Status: ADM IN PHONE #: [phone] Exam Date: 01/26/2019 043 FAX #: [phone] Reason: updated pulm view EXAMS: CPT CODE: [id number] XR CHEST 1 V 39561 CLINICAL HISTORY: Syncope TECHNIQUE: AP chest x-ray COMPARISON: Previous day. IMPRESSION: Improved bibasilar subsegmental atelectasis. Stable small right infrahilar airspace opacification. Cardiomegaly. Atherosclerotic vascular calcification of the thoracic aorta. NG tube and right permacath. LOCATION: [facility] at 0739 Reported and signed by: Willow Robles D.O. CC: Blanco Joshua; Wellington Pace MD Technologist: MONAE MEDINA JR Trnscrd Da te/Time/By: 01/26/2019 (0739) : By: [email or web address] Orig Print D/T: S: 01/26 (0742) PAGE 1 Signed Report [id number] 06:43:00* Test Item Value Reference Range Interpretation Comments MAGNESIUM (test code = MAG) 2.5 mg/dL 1.8-2.4 H BASIC METABOLIC [id number] 06:38:00* Test Item Value Reference Range Interpretation Comments SODIUM (test code = NA) 145 mmol/L 136-145 N POTASSIUM (test code = K) 4.8 mmol/L 3.5-5.1 N CHLORIDE (test code = CL) 104.0 mmol/L 98-107 N CARBON DIOXIDE (test code = CO2) 26.0 mmol/L 21-32 N ANION GAP (test code = GAP) 19.8 10-20 N GLUCOSE (test code = GLU) 339 mg/dL 74-106 H BLOOD UREA NITROGEN (test code = BUN) 80 mg/dL 7-18 H GLOMERULAR FILTRATION RATE (test code = GFR) 7 mL/min >=60 Estimated GFR by using Modified MDRD formula.Chronic kidney disease is defined as either kidney damageor GFR <60 mL/min/1.73 m2 for >3 months. CREATININE (test code = CREAT) 7.10 mg/dL 0.7-1.3 H BUN/CREATININE RATIO (test code = BUN/CREA) 11.3 10-20 N CALCIUM (test code = CA) 9.7 mg/dL 8.5-10.1 N BASIC METABOLIC [id number] 06:29:00* Test Item Value Reference Range Interpretation Comments SODIUM (test code = NA) 145 mmol/L 136-145 N POTASSIUM (test code = K) 4.8 mmol/L 3.5-5.1 N CHLORIDE (test code = CL) 104.0 mmol/L 98-107 N CARBON DIOXIDE (test code = CO2) mmol/L 21-32 ANION GAP (test code = GAP) 10-20 GLUCOSE (test code = GLU) mg/dL 74-106 BLOOD UREA NITROGEN (test code = BUN) mg/dL 7-18 GLOMERULAR FILTRATION RATE (test code = GFR) mL/min >=60 CREATININE (test code = CREAT) mg/dL 0.7-1.3 BUN/CREATININE RATIO (test code = BUN/CREA) 10-20 CALCIUM (test code = CA) 9.7 mg/dL 8.5-10.1 N PROTHROMBIN [id number] 06:14:00* Test Item Value Reference Range Interpretation Comments PROTHROMBIN TIME PATIENT (test code = PTP) 22.4 seconds 9.0-14.0 H INTERNATIONAL NORMAL RATIO (test code = INR) 1.9 0.8-1.2 H The therapeutic range for oral anticoagulant therapy formost indications is an international normalized ratio (INR)of between 2.0 and 3.0. The recommended therapeutic INRrange for various clinical situations is listed below: Clinical Situation INR range Pulmonary e mbolism treatment (2.0-3.0)Venous thrombosis treatmentVenous thrombosis prophylaxis (high risk surgery)Prevention of systemic embolism from: Acute myocardial infarction Valvular heart disease Atrial fibrillation Mechanical prosthetic heart valves (2.5-3.5) IS PATIENT ON ANTICOAGULANTS? YLIST ANTICOAGULANTS COUMADINCBC W/O DIFF 2019-01-26 05:55:00* Test Item Value Reference Range Interpretation Comments WHITE BLOOD CELL (test code = WBC) 13.9 K/mm3 4.5-12.5 H RED BLOOD CELL (test code = RBC) 3.60 mill/mm3 4.0-5.8 L HEMOGLOBIN (test code = HGB) 10.4 gram/dL 13.0-17.5 L HEMATOCRIT (test code = HCT) 34.3 % 42.0-52.0 L MEAN CELL VOLUME (test code = MCV) 95.3 fL 80-98 N MEAN CELL HGB (test code = MCH) 28.9 picogram 27.0-33.0 N MEAN CELL HGB CONCETRATION (test code = MCHC) 30.3 gram/dL 33.0-36. 0 L RED CELL DISTRIBUTION WIDTH (test code = RDW) 16.4 % 11.6-16. 2 H PLATELET COUNT (test code = PLT) 286 K/mm3 150-450 N MEAN PLATELET VOLUME (test code = MPV) 10.1 fL 6.7-11.0 N [id number] 16:46:00* Test Item Value Reference Range Interpretation Comments GLUBED (test code = GLUBED) 237 mg/dL 74-106 H Performed by certified cream separator operator at [facility] [id number] 10:44:00* Test Item Value Reference Range Interpretation Comments GLUBED (test code = GLUBED) 363 mg/dL 74-106 H Performed by certified cream separator operator at [facility] - XR CHEST 1 [id number] 07:24:00 FAX: Blanco Joshua [phone] [place]: B St: [facility] FAX: Wellington Hercules MD [phone] Name: ARY ALEJO [facility] : 1935 Age/S: 83/M [address] [facility] Unit #: [id number] Loc: [address] [place] [address] Phys: Blanco Joshua Acct: [id number] Dis Date: Status: ADM IN PHONE #: [phone] Exam Date: 01/25/2019 0512 FAX #: [phone] Reason: updated pulm view EXAMS: CPT CODE: [id number] XR CHEST 1 V 14398 REASON FOR EXAM: updated pulm view Exam Order Date: 01/25/2019 5:00 AM Ordering M.D.: KAREN Thorpe PROCEDURE: - XR CHEST 1 V COMPARISON: Frontal chest x-ray the previous morning FINDINGS: Enteric suction tube and right IJ dialysis catheter are unchanged in position. The lungs are better aerated from the previous exam however patchy opacities remain and may represent subsegmental atelectasis and/or consolidation. Upper lungs are clear. The cardiomediastinal silhouette is prominent but stable in size. There are degenerative changes in the spine which appear similar to the previous exam. The visualized upper abdomen is within normal limits. IMPRESSION: Improved aeration of the lung bases. However patchy opacities remain in the lung bases and may represent any combination of subsegmental atelectasis and co nsolidation. Location: [facility] at 0724 Reported and sign ed by: Richi Godinez MD CC: Blanco Joshua; Wellington Pace MD Technologist: Hay Roe RT(R); JAMES AKHTAR RT(R) Trn scrd Date/Time/By: 01/25/2019 (0724) : By: [email or web address] [facility] Print D/T: S : 01/25/2019 (0753) PAGE 1 Signed Report BASIC METABOLIC [id number] 06:42:00* Test Item Value Reference Range Interpretation Comments SODIUM (test code = NA) 144 mmol/L 136-145 N POTASSIUM (test code = K) 5.0 mmol/L 3.5-5.1 N CHLORIDE (test code = CL) 104.0 mmol/L 98-107 N CARBON DIOXIDE (test code = CO2) 25.0 mmol/L 21-32 N ANION GAP (test code = GAP) 20.0 10-20 N GLUCOSE (test code = GLU) 348 mg/dL 74-106 H BLOOD UREA NITROGEN (test code = BUN) 54 mg/dL 7-18 H GLOMERULAR FILTRATION RATE (test code = GFR) 10 mL/min >=60 Estimated GFR by using Modified MDRD formula.Chronic kidney disease is defined as either kidney damageor GFR <60 mL/min/1.73 m2 for >3 months. CREATININE (test code = CREAT) 5.30 mg/dL 0.7-1.3 H BUN/CREATININE RATIO (test code = BUN/CREA) 10.2 10-20 N CALCIUM (test code = CA) 9.6 mg/dL 8.5-10.1 N [id number] 06:42:00* Test Item Value Reference Range Interpretation Comments MAGNESIUM (test code = MAG) 2.4 mg/dL 1.8-2.4 N PROTHROMBIN [id number] 05:52:00* Test Item Value Reference Range Interpretation Comments PROTHROMBIN TIME PATIENT (test code = PTP) 22.8 seconds 9.0-14.0 H INTERNATIONAL NORMAL RATIO (test code = INR) 1.9 0.8-1.2 H The therapeutic range for oral anticoagulant therapy formost indications is an international normalized ratio (INR)of between 2.0 and 3.0. The recommended therapeutic INRrange for various clinical situations is listed below: Clinical Situation INR range Pulmonary e mbolism treatment (2.0-3.0)Venous thrombosis treatmentVenous thrombosis prophylaxis (high risk surgery)Prevention of systemic embolism from: Acute myocardial infarction Valvular heart disease Atrial fibrillation Mechanical prosthetic heart valves (2.5-3.5) IS PATIENT ON ANTICOAGULANTS? YLIST ANTICOAGULANTS COUMADINCBC W/O DIFF 2019-01-25 05:35:00* Test Item Value Reference Range Interpretation Comments WHITE BLOOD CELL (test code = WBC) 13.9 K/mm3 4.5-12.5 H RED BLOOD CELL (test code = RBC) 3.78 mill/mm3 4.0-5.8 L HEMOGLOBIN (test code = HGB) 11.0 gram/dL 13.0-17.5 L HEMATOCRIT (test code = HCT) 35.9 % 42.0-52.0 L MEAN CELL VOLUME (test code = MCV) 95.0 fL 80-98 N MEAN CELL HGB (test code = MCH) 29.1 picogram 27.0-33.0 N MEAN CELL HGB CONCETRATION (test code = MCHC) 30.6 gram/dL 33.0-36. 0 L RED CELL DISTRIBUTION WIDTH (test code = RDW) 16.4 % 11.6-16. 2 H PLATELET COUNT (test code = PLT) 300 K/mm3 150-450 MEAN PLATELET VOLUME (test code = MPV) 9.8 fL 6.7-11.0 N [id number] 16:15:00* Test Item Value Reference Range Interpretation Comments GLUBED (test code = GLUBED) 217 mg/dL 74-106 H Performed by certified cream separator operator at [facility] [id number] 11:09:00* Test Item Value Reference Range Interpretation Comments GLUBED (test code = GLUBED) 160 mg/dL 74-106 H Performed by certified cream separator operator at [facility] PROCALCITONIN (PCT)2019-01-24 07:30:00* Test Item Value Reference Range Interpretation Comments PROCALCITONIN (PCT) (test code = PROCAL) 7.26 ng/ml Concentration Interpretation (ng/mL) <0.51 Sepsis is not likely. Local bacterial infection is possible. (LOW RISK for progression to Sepsis) 0.51 - 2.00 Sepsis is possible, but other conditions are known to elevate PCT as well. (MODERATE RISK for progression to Sepsis) > 2.00 Sepsis is likely, unless other causes are known. (HIGH RISK for progression to Severe Sepsis or Septic Shock) 10.00 High likelihood of Severe Sepsis or Septic or higher Shock. *Increased PCT levels may not always be related to systemic bacterial infection.*Low PCT levels do not automatically exclude the presence of bacterial infection.*All results should be interpreted taking into account the patients history. CBC W/O [id number] 07:24:00* Test Item Value Reference Range Interpretation Comments WHITE BLOOD CELL (test code = WBC) 10.0 K/mm3 4.5-12.5 N RED BLOOD CELL (test code = RBC) 3.26 mill/mm3 4.0-5.8 L HEMOGLOBIN (test code = HGB) 9.4 gram/dL 13.0-17.5 L HEMATOCRIT (test code = HCT) 32.3 % 42.0-52.0 L MEAN CELL VOLUME (test code = MCV) 99.1 fL 80-98 H MEAN CELL HGB (test code = MCH) 28.8 picogram 27.0-33.0 N MEAN CELL HGB CONCETRATION (test code = MCHC) 29.1 gram/dL 33.0-36. 0 L RED CELL DISTRIBUTION WIDTH (test code = RDW) 16.5 % 11.6-16. 2 H PLATELET COUNT (test code = PLT) 239 K/mm3 150-450 N MEAN PLATELET VOLUME (test code = MPV) 9.9 fL 6.7-11.0 N PROTHROMBIN [id number] 06:39:00* Test Item Value Reference Range Interpretation Comments PROTHROMBIN TIME PATIENT (test code = PTP) 19.2 seconds 9.0-14.0 H INTERNATIONAL NORMAL RATIO (test code = INR) 1.6 0.8-1.2 H The therapeutic range for oral anticoagulant therapy formost indications is an international normalized ratio (INR)of between 2.0 and 3.0. The recommended therapeutic INRrange for various clinical situations is listed below: Clinical Situation INR range Pulmonary e mbolism treatment (2.0-3.0)Venous thrombosis treatmentVenous thrombosis prophylaxis (high risk surgery)Prevention of systemic embolism from: Acute myocardial infarction Valvular heart disease Atrial fibrillation Mechanical prosthetic heart valves (2.5-3.5) IS PATIENT ON ANTICOAGULANTS? YLIST ANTICOAGULANTS COUMADIN- XR CHEST 1 V 2019-01-24 06:26:00 FAX: Blanco Joshua [phone] [place]: St: ADM FAX: Wellington Hercules MD [phone] Name: ARY ALEJO [facility] : 1935 Age/S: 83/M [address] [facility] Unit #: [id number] Loc: [address] [address] Phys: Blanco Joshua Acct: [id number] Dis Date: Status: ADM IN PHONE #: [phone] Exam Date: 01/24/2019522 FAX #: [phone] Reason: updated pulm view EXAMS: CPT CODE: [id number] XR CHEST 1 V 95062 CLINICAL HISTORY: updated pulm view TECHNIQUE: AP chest x-ray COMPARISON: Previous day. IMPRESSION: No significant interval change. Bibasilar airspace opacification and small effusions. Cardiomegaly. Atherosclerotic vascular calcification of the thoracic aorta. NG tube and right permacath. LOCATION: at 0626 Reported and signed by: Willow Robles D.O. CC: Blanco Joshua; Wellington Pace MD Technologist: MONAE Brody Trnscrd Date/Time/By: 01/24/2019 (06) : By: [email or web address] Orig Print D/T: S: 01/24/2019 (1983) PAGE 1 Signed Report BASIC METABOLIC [id number] 06:11:00* Test Item Value Reference Range Interpretation Comments SODIUM (test code = NA) 145 mmol/L 136-145 N POTASSIUM (test code = K) 4.5 mmol/L 3.5-5.1 N CHLORIDE (test code = CL) 105.0 mmol/L 98-107 N CARBON DIOXIDE (test code = CO2) 25.0 mmol/L 21-32 N ANION GAP (test code = GAP) 19.5 10-20 N GLUCOSE (test code = GLU) 183 mg/dL 74-106 H BLOOD UREA NITROGEN (test code = BUN) 77 mg/dL 7-18 H RESULT VERIFIED BY REPEAT ANALYSIS GLOMERULAR FILTRATION RATE (test code = GFR) 7 mL/min >=60 Estimated GFR by using Modified MDRD formula.Chronic kidney disease is defined as either kidney damageor GFR <60 mL/min/1.73 m2 for >3 months. CREATININE (test code = CREAT) 7.40 mg/dL 0.7-1.3 H BUN/CREATININE RATIO (test code = BUN/CREA) 10.4 10-20 N CALCIUM (test code = CA) 9.2 mg/dL 8.5-10.1 N [id number] 06:11:00* Test Item Value Reference Range Interpretation Comments MAGNESIUM (test code = MAG) 2.4 mg/dL 1.8-2.4 N BASIC METABOLIC [id number] 05:39:00* Test Item Value Reference Range Interpretation Comments SODIUM (test code = NA) 145 mmol/L 136-145 N POTASSIUM (test code = K) 4.5 mmol/L 3.5-5.1 N CHLORIDE (test code = CL) 105.0 mmol/L 98-107 N CARBON DIOXIDE (test code = CO2) mmol/L 21-32 ANION GAP (test code = GAP) 10-20 GLUCOSE (test code = GLU) mg/dL 74-106 BLOOD UREA NITROGEN (test code = BUN) mg/dL 7-18 GLOMERULAR FILTRATION RATE (test code = GFR) mL/min >=60 CREATININE (test code = CREAT) mg/dL 0.7-1.3 BUN/CREATININE RATIO (test code = BUN/CREA) 10-20 CALCIUM (test code = CA) mg/dL 8.5-10.1 [id number] 05:39:00* Test Item Value Reference Range Interpretation Comments MAGNESIUM (test code = MAG) mg/dL 1.8-2.4 - XR CHEST 1 [id number] 18:34:00 FAX: Lex Gao [place]: St: ADM FAX: Wellington Hercules MD [phone] Name: ARY ALEJO [facility] : 1935 Age/S: 83/M [address] [facility] Unit #: [id number] Loc: V.S[address] [place] [address] Phys: Lex Gao Acct: [id number] Dis Date: Status: ADM IN PHONE #: [phone] Exam Date: 01/23/2019 1800 FAX #: [phone] Reason: NGT TUBE PLACEMENT EXAMS: CPT CODE: [id number] XR CHEST 1 V 60005 REASON FOR EXAM: NGT TUBE PLACEMENT Exam Order Date: 01/23/2019 5:36 PM Ordering MAngel: KAREN Mclean PROCEDURE: - XR CHEST 1 V COMPARISON: Frontal chest x-ray earlier today at 9:19 AM FINDINGS: Enteric suction tube has been inserted into the stomach. Right IJ dialysis catheter is unchanged. Cardiac mediastinal silhouette is enlarged and there are opacities in the bilateral lung bases which appears similar to the prior exam and may represent any combination of atelectasis, pneumonia, and small layering effusions. Degenerative changes are present in the spine. IMPRESSION: Enteric suction tube has been inserted into the stomach. The remaining findings are unchanged. Location: [facility] at 1834 Reported and signed by: Richi Godinez MD CC: Lex Gao; Wellington Pace MD Technologist: Briana Walker) Trnakrd Date/Time/By: 01/23/2019 (1833) : By: [email or web address] Orig Print D/T: S: 01/23/2019 (9877) PAGE 1 Signed Report [id number] 15:44:00* Test Item Value Reference Range Interpretation Comments ANABEL (test code = GLUBED) 118 mg/dL 74-106 H Performed by certified cream separator operator at [facility] - XR CHEST 1 [id number] 11:34:00 FAX: Lex Gao [place]: B St: ADM FAX: Y Wellington Pace MD [phone] Name: MELOARY PETRA [facility] : 1935 Age/S: 83/M [address] [facility] Unit #: [id number] Loc: V.S15 [place] [address] Phys: Lex Gao Acct: [id number] Dis Date: Status: ADM IN PHONE #: [phone] Exam Date: 01/23/2019925 FAX #: [phone] Reason: NGT TUBE PLACEMENT EXAMS: CPT CODE: [id number] XR CHEST 1 V 64330 HISTORY: NG tube placement. COMPARISON: January 23, 2019. NG tube is coiled within the neck. This should BE completely replaced. Right Port-A-Cath with the leads in the neck. Right catheter with the tip projected over the SVC. Bibasal subsegmental atelectasis, greater on the left. No definite infiltrates or congestion. Cardiomegaly. IMPRESSION: NG tube is coiled within the neck. This should be completely replaced. The sinus are discussed with patient's nurse. at 1134 Reported and signed by: Daron Kraft M.D. CC: Lex Gao; Wellington Pace MD Technologist: Hodan Valente(R) Trnscrd Date/Time/By: 01/23/2019 (0281) : By: [email or web address] PAGE 1 Signed Report [id number] 11:26:00* Test Item Value Reference Range Interpretation Comments GLUBED (test code = GLUBED) 107 mg/dL 74-106 H Performed by certified cream separator operator at [facility] [id number] 09:35:00* Test Item Value Reference Range Interpretation Comments GLUBED (test code = GLUBED) 70 mg/dL 74-106 L Performed by certified cream separator operator at [facility] BASIC METABOLIC [id number] 06:25:00* Test Item Value Reference Range Interpretation Comments SODIUM (test code = NA) 146 mmol/L 136-145 H POTASSIUM (test code = K) 4.0 mmol/L 3.5-5.1 N CHLORIDE (test code = CL) 106.0 mmol/L 98-107 N CARBON DIOXIDE (test code = CO2) 29.0 mmol/L 21-32 N ANION GAP (test code = GAP) 15.0 10-20 N GLUCOSE (test code = GLU) 87 mg/dL 74-106 N BLOOD UREA NITROGEN (test code = BUN) 46 mg/dL 7-18 H GLOMERULAR FILTRATION RATE (test code = GFR) 11 mL/min >=60 Estimated GFR by using Modified MDRD formula.Chronic kidney disease is defined as either kidney damageor GFR <60 mL/min/1.73 m2 for >3 months. CREATININE (test code = CREAT) 5.20 mg/dL 0.7-1.3 H BUN/CREATININE RATIO (test code = BUN/CREA) 8.8 10-20 L CALCIUM (test code = CA) 9.4 mg/dL 8.5-10.1 N [id number] 06:25:00* Test Item Value Reference Range Interpretation Comments MAGNESIUM (test code = MAG) 2.2 mg/dL 1.8-2.4 N - XR CHEST 1 [id number] 06:14:00 FAX: Blanco Joshua [phone] [place]: B St: ADM FAX: Wellington Hercules MD [phone] Name: ARY ALEJO [facility] : 1935 Age/S: 83/M [address] [facility] Unit #: [id number] Loc: [address] [place] [address] Phys: Blanco Joshua Acct: [id number] Dis Date: Status: ADM IN PHONE #: [phone] Exam Date: 01/23/2019520 FAX #: [phone] Reason: updated pulm view EXAMS: CPT CODE: [id number] XR CHEST 1 V 12120 CLINICAL HISTORY: Syncope, hypoxia TECHNIQUE: AP chest x-ray COMPARISON: Previous day. IMPRESSION: Improved bibasilar airspace opacification and small effusions. Cardiomegaly. Atherosclerotic vascular calcification of the thoracic aorta. ET and NG tubes have been removed. Right permacath and left central venous catheter remain in place. LOCATION: LP at 0614 Reported and signed by: Willow Robles D.O. CC: Blanco Joshua; Wellington Pace MD Technologist: MONAE Brody Trnscrd Date/Time/By: 01/23/2019 (0614) : By: [email or web address] Orig Print D/T: S: 01/23/2019 (0626) PAGE 1 Signed Report BASIC METABOLIC [id number] 06:08:00* Test Item Value Reference Range Interpretation Comments SODIUM (test code = NA) 146 mmol/L 136-145 H POTASSIUM (test code = K) 4.0 mmol/L 3.5-5.1 N CHLORIDE (test code = CL) 106.0 mmol/L 98-107 N CARBON DIOXIDE (test code = CO2) mmol/L 21-32 ANION GAP (test code = GAP) 10-20 GLUCOSE (test code = GLU) mg/dL 74-106 BLOOD UREA NITROGEN (test code = BUN) mg/dL 7-18 GLOMERULAR FILTRATION RATE (test code = GFR) mL/min >=60 CREATININE (test code = CREAT) mg/dL 0.7-1.3 BUN/CREATININE RATIO (test code = BUN/CREA) 10-20 CALCIUM (test code = CA) mg/dL 8.5-10.1 [id number] 06:08:00* Test Item Value Reference Range Interpretation Comments MAGNESIUM (test code = MAG) mg/dL 1.8-2.4 PROTHROMBIN [id number] 05:50:00* Test Item Value Reference Range Interpretation Comments PROTHROMBIN TIME PATIENT (test code = PTP) 18.0 seconds 9.0-14.0 H INTERNATIONAL NORMAL RATIO (test code = INR) 1.5 0.8-1.2 H The therapeutic range for oral anticoagulant therapy formost indications is an international normalized ratio (INR)of between 2.0 and 3.0. The recommended therapeutic INRrange for various clinical situations is listed below: Clinical Situation INR range Pulmonary e mbolism treatment (2.0-3.0)Venous thrombosis treatmentVenous thrombosis prophylaxis (high risk surgery)Prevention of systemic embolism from: Acute myocardial infarction Valvular heart disease Atrial fibrillation Mechanical prosthetic heart valves (2.5-3.5) IS PATIENT ON ANTICOAGULANTS? YLIST ANTICOAGULANTS COUMADINCBC W/O DIFF 2019-01-23 05:49:00* Test Item Value Reference Range Interpretation Comments WHITE BLOOD CELL (test code = WBC) 9.5 K/mm3 4.5-12.5 N RED BLOOD CELL (test code = RBC) 3.09 mill/mm3 4.0-5.8 L HEMOGLOBIN (test code = HGB) 9.2 gram/dL 13.0-17.5 L HEMATOCRIT (test code = HCT) 29.7 % 42.0-52.0 L MEAN CELL VOLUME (test code = MCV) 96.1 fL 80-98 N MEAN CELL HGB (test code = MCH) 29.8 picogram 27.0-33.0 N MEAN CELL HGB CONCETRATION (test code = MCHC) 31.0 gram/dL 33.0-36. 0 L RED CELL DISTRIBUTION WIDTH (test code = RDW) 16.9 % 11.6-16. 2 H PLATELET COUNT (test code = PLT) 223 K/mm3 150-450 N MEAN PLATELET VOLUME (test code = MPV) 9.8 fL 6.7-11.0 N [id number] 00:47:00* Test Item Value Reference Range Interpretation Comments GLUBED (test code = GLUBED) 114 mg/dL 74-106 H [facility] certified [facility]~ [id number] 21:07:00* Test Item Value Reference Range Interpretation Comments GLUBED (test code = GLUBED) 173 mg/dL 74-106 H Performed by certified cream separator operator at [facility] [id number] 20:32:00* Test Item Value Reference Range Interpretation Comments GLUBED (test code = GLUBED) 146 mg/dL 74-106 H [facility] certified cream separator [facility]~ [id number] 12:29:00* Test Item Value Reference Range Interpretation Comments GLUBED (test code = GLUBED) 165 mg/dL 74-106 H Performed by certified cream separator operator at [facility] [id number] 12:29:00* Test Item Value Reference Range Interpretation Comments GLUBED (test code = GLUBED) 213 mg/dL 74-106 H Performed by certified cream separator operator at [facility] - XR CHEST 1 [id number] 07:15:00 FAX: Blanco Joshua [phone] [place]: B St: [facility] FAX: Wellington Hercules MD [phone] Name: ARY ALEJO [facility] : 1935 Age/S: 83/M [address] [facility] Unit #: [id number] Loc: V.S15 [place] [address] Phys: Blanco Joshua Acct: [id number] Dis Date: Status: ADM IN PHONE #: [phone] Exam Date: 01/22/2019 05 FAX #: [phone] Reason: updated pulm view EXAMS: CPT CODE: [id number] XR CHEST 1 V 54182 CLINICAL HISTORY: Syncope, hypoxia TECHNIQUE: AP chest x-ray COMPARISON: Previous day. IMPRESSION: No significant interval change. Bibasilar airspace opacification and small effusions. Cardiomegaly. Atherosclerotic vascular calcification of the thoracic aorta. ET tube, NG tube, right permacath, and left central venous catheter. LOCATION: LP at 0715 Reported and signed by: Willow Robles D.O. CC: Blanco Joshua; Wellington Pace MD Technologist: MONAE Brody Trnscrd Date/Time/By: 01/22/2019 (0715) : By: [email or web address] Orig Print D/T: S: 01/22/2019 (0719) PAGE 1 Signed Report BASIC METABOLIC [id number] 05:30:00* Test Item Value Reference Range Interpretation Comments SODIUM (test code = NA) 141 mmol/L 136-145 N POTASSIUM (test code = K) 4.9 mmol/L 3.5-5.1 N CHLORIDE (test code = CL) 101.0 mmol/L 98-107 N CARBON DIOXIDE (test code = CO2) 27.0 mmol/L 21-32 N ANION GAP (test code = GAP) 17.9 10-20 N GLUCOSE (test code = GLU) 220 mg/dL 74-106 H BLOOD UREA NITROGEN (test code = BUN) 60 mg/dL 7-18 H RESULT VERIFIED BY REPEAT ANALYSIS GLOMERULAR FILTRATION RATE (test code = GFR) 8 mL/min >=60 Estimated GFR by using Modified MDRD formula.Chronic kidney disease is defined as either kidney damageor GFR <60 mL/min/1.73 m2 for >3 months. CREATININE (test code = CREAT) 6.90 mg/dL 0.7-1.3 H BUN/CREATININE RATIO (test code = BUN/CREA) 8.7 10-20 L CALCIUM (test code = CA) 8.5 mg/dL 8.5-10.1 N [id number] 05:30:00* Test Item Value Reference Range Interpretation Comments MAGNESIUM (test code = MAG) 2.3 mg/dL 1.8-2.4 N BASIC METABOLIC [id number] 05:12:00* Test Item Value Reference Range Interpretation Comments SODIUM (test code = NA) 141 mmol/L 136-145 N POTASSIUM (test code = K) 4.9 mmol/L 3.5-5.1 N CHLORIDE (test code = CL) 101.0 mmol/L 98-107 N CARBON DIOXIDE (test code = CO2) mmol/L 21-32 ANION GAP (test code = GAP) 10-20 GLUCOSE (test code = GLU) mg/dL 74-106 BLOOD UREA NITROGEN (test code = BUN) mg/dL 7-18 GLOMERULAR FILTRATION RATE (test code = GFR) mL/min >=60 CREATININE (test code = CREAT) mg/dL 0.7-1.3 BUN/CREATININE RATIO (test code = BUN/CREA) 10-20 CALCIUM (test code = CA) mg/dL 8.5-10.1 [id number] 05:12:00* Test Item Value Reference Range Interpretation Comments MAGNESIUM (test code = MAG) mg/dL 1.8-2.4 PROTHROMBIN [id number] 05:06:00* Test Item Value Reference Range Interpretation Comments PROTHROMBIN TIME PATIENT (test code = PTP) 18.3 seconds 9.0-14.0 H INTERNATIONAL NORMAL RATIO (test code = INR) 1.6 0.8-1.2 H The therapeutic range for oral anticoagulant therapy formost indications is an international normalized ratio (INR)of between 2.0 and 3.0. The recommended therapeutic INRrange for various clinical situations is listed below: Clinical Situation INR range Pulmonary e mbolism treatment (2.0-3.0)Venous thrombosis treatmentVenous thrombosis prophylaxis (high risk surgery)Prevention of systemic embolism from: Acute myocardial infarction Valvular heart disease Atrial fibrillation Mechanical prosthetic heart valves (2.5-3.5) IS PATIENT ON ANTICOAGULANTS? YLIST ANTICOAGULANTS COUMADINCBC W/O DIFF 2019-01-22 05:05:00* Test Item Value Reference Range Interpretation Comments WHITE BLOOD CELL (test code = WBC) 10.2 K/mm3 4.5-12.5 N RED BLOOD CELL (test code = RBC) 2.78 mill/mm3 4.0-5.8 L HEMOGLOBIN (test code = HGB) 8.3 gram/dL 13.0-17.5 L HEMATOCRIT (test code = HCT) 26.4 % 42.0-52.0 L MEAN CELL VOLUME (test code = MCV) 95.0 fL 80-98 RESULT VERIFIED BY REPEAT ANALYSIS MEAN CELL HGB (test code = MCH) 29.9 picogram 27.0-33.0 N MEAN CELL HGB CONCETRATION (test code = MCHC) 31.4 gram/dL 33.0-36. 0 L RED CELL DISTRIBUTION WIDTH (test code = RDW) 16.9 % 11.6-16. 2 H PLATELET COUNT (test code = PLT) 204 K/mm3 150-450 N MEAN PLATELET VOLUME (test code = MPV) 10.0 fL 6.7-11.0 N [id number] 03:46:00* Test Item Value Reference Range Interpretation Comments GLUBED (test code = GLUBED) 192 mg/dL 74-106 H Performed by certified cream separator operator at [facility] [id number] 20:17:00* Test Item Value Reference Range Interpretation Comments GLUBED (test code = GLUBED) 187 mg/dL 74-106 H Performed by certified cream separator operator at [facility] B-TYPE NATRIURETIC [id number] 17:30:00* Test Item Value Reference Range Interpretation Comments B-TYPE NATRIURETIC PEPTIDE (test code = BNP) 153.85 pgram/mL 0-100 H [id number] 15:23:00* Test Item Value Reference Range Interpretation Comments GLUBED (test code = GLUBED) 146 mg/dL 74-106 H Performed by certified cream separator operator at [facility] [id number] 11:02:00* Test Item Value Reference Range Interpretation Comments GLUBED (test code = GLUBED) 185 mg/dL 74-106 H [facility] by certified cream separator [facility]~ PROTHROMBIN [id number] 10:48:00* Test Item Value Reference Range Interpretation Comments PROTHROMBIN TIME PATIENT (test code = PTP) 18.5 seconds 9.0-14.0 H INTERNATIONAL NORMAL RATIO (test code = INR) 1.6 0.8-1.2 H The therapeutic range for oral anticoagulant therapy formost indications is an international normalized ratio (INR)of between 2.0 and 3.0. The recommended therapeutic INRrange for various clinical situations is listed below: Clinical Situation INR range Pulmonary e mbolism treatment (2.0-3.0)Venous thrombosis treatmentVenous thrombosis prophylaxis (high risk surgery)Prevention of systemic embolism from: Acute myocardial infarction Valvular heart disease Atrial fibrillation Mechanical prosthetic heart valves (2.5-3.5) IS PATIENT ON ANTICOAGULANTS? YLIST ANTICOAGULANTS [id number] 07:32:00* Test Item Value Reference Range Interpretation Comments GLUBED (test code = GLUBED) 224 mg/dL 74-106 H Performed by certified cream separator operator at [facility] BASIC METABOLIC [id number] 06:39:00* Test Item Value Reference Range Interpretation Comments SODIUM (test code = NA) 143 mmol/L 136-145 N POTASSIUM (test code = K) 4.4 mmol/L 3.5-5.1 N CHLORIDE (test code = CL) 104.0 mmol/L 98-107 N CARBON DIOXIDE (test code = CO2) 28.0 mmol/L 21-32 N ANION GAP (test code = GAP) 15.4 10-20 N GLUCOSE (test code = GLU) 235 mg/dL 74-106 H BLOOD UREA NITROGEN (test code = BUN) 38 mg/dL 7-18 H GLOMERULAR FILTRATION RATE (test code = GFR) 11 mL/min >=60 Estimated GFR by using Modified MDRD formula.Chronic kidney disease is defined as either kidney damageor GFR <60 mL/min/1.73 m2 for >3 months. CREATININE (test code = CREAT) 5.20 mg/dL 0.7-1.3 H BUN/CREATININE RATIO (test code = BUN/CREA) 7.3 10-20 L CALCIUM (test code = CA) 8.5 mg/dL 8.5-10.1 N [id number] 06:39:00* Test Item Value Reference Range Interpretation Comments MAGNESIUM (test code = MAG) 1.9 mg/dL 1.8-2.4 N CBC W/O [id number] 06:35:00* Test Item Value Reference Range Interpretation Comments WHITE BLOOD CELL (test code = WBC) 10.6 K/mm3 4.5-12.5 N RED BLOOD CELL (test code = RBC) 2.55 mill/mm3 4.0-5.8 L HEMOGLOBIN (test code = HGB) 7.6 gram/dL 13.0-17.5 L HEMATOCRIT (test code = HCT) 25.7 % 42.0-52.0 L MEAN CELL VOLUME (test code = MCV) 100.8 fL 80-98 H MEAN CELL HGB (test code = MCH) 29.8 picogram 27.0-33.0 N MEAN CELL HGB CONCETRATION (test code = MCHC) 29.6 gram/dL 33.0-36. 0 L RED CELL DISTRIBUTION WIDTH (test code = RDW) 16.3 % 11.6-16. 2 H PLATELET COUNT (test code = PLT) 192 K/mm3 150-450 N MEAN PLATELET VOLUME (test code = MPV) 10.0 fL 6.7-11.0 N BASIC METABOLIC [id number] 06:35:00* Test Item Value Reference Range Interpretation Comments SODIUM (test code = NA) 143 mmol/L 136-145 N POTASSIUM (test code = K) 4.4 mmol/L 3.5-5.1 N CHLORIDE (test code = CL) 104.0 mmol/L 98-107 N CARBON DIOXIDE (test code = CO2) mmol/L 21-32 ANION GAP (test code = GAP) 10-20 GLUCOSE (test code = GLU) mg/dL 74-106 BLOOD UREA NITROGEN (test code = BUN) mg/dL 7-18 GLOMERULAR FILTRATION RATE (test code = GFR) mL/min >=60 CREATININE (test code = CREAT) mg/dL 0.7-1.3 BUN/CREATININE RATIO (test code = BUN/CREA) 10-20 CALCIUM (test code = CA) 8.5 mg/dL 8.5-10.1 N [id number] 06:35:00* Test Item Value Reference Range Interpretation Comments MAGNESIUM (test code = MAG) mg/dL 1.8-2.4 - XR CHEST 1 [id number] 06:17:00 FAX: Blanco Joshua [phone] [place]: St: [facility] FAX: Wellington Hercules MD [phone] Name: ARY ALEJO [facility] : 1935 Age/S: 83/M [address] [facility] Unit #: [id number] [facility] [place] [address] Phys: Blanco Joshua Acct: [id number] Dis Date: Status: ADM IN PHONE #: [phone] Exam Date: 01/21/2019 0516 FAX #: [phone] Reason: updated pulm view. EXAMS: CPT CODE: [id number] XR CHEST 1 V [id number] CLINICAL HISTORY: Syncope, hypoxia TECHNIQUE: AP chest x-ray COMPARISON: Previous day. IMPRESSION: No significant interval change. Bibasilar airspace opacification and small effusions. Cardiomegaly. Atherosclerotic vascular calcification of the thoracic aorta. ET tube, NG tube, right permacath, and left central venous catheter. LOCATION: [facility] at 0617 Reported and signed by: Willow Robles D.O. CC: Blanco Joshua; Wellington Pace MD Technologist: MONAE MEDINA JR; Valentine Brody Trnscrd Date/Time/By: 01/21/2019 (06) : By: [email or web address] Orig Print D/T: S: 01/21/2019 (0620) PAGE 1 Signed Report [id number] 22:18:00* Test Item Value Reference Range Interpretation Comments GLUBED (test code = GLUBED) 139 mg/dL 74-106 H Performed by certified cream separator operator at [facility] [id number] 16:29:00* Test Item Value Reference Range Interpretation Comments GLUBED (test code = GLUBED) 243 mg/dL 74-106 H Performed by certified cream separator operator at [facility] [id number] 12:24:00* Test Item Value Reference Range Interpretation Comments GLUBED (test code = GLUBED) 259 mg/dL 74-106 H [facility] certified cream [facility]~ HGB [id number] 11:48:00* Test Item Value Reference Range Interpretation Comments HEMOGLOBIN (test code = HGB) 7.6 gram/dL 13.0-17.5 L HEMATOCRIT (test code = HCT) 24.8 % 42.0-52.0 L [id number] 08:11:00* Test Item Value Reference Range Interpretation Comments GLUBED (test code = GLUBED) 188 mg/dL 74-106 H [facility] certified cream separator [facility] - XR CHEST 1 [id number] 08:04:00 FAX: Destini Ordaz NP [phone] [place]: B St: ADM FAX: Wellington Hercules MD [phone] Name: ARY ALEJO [facility] : 1935 Age/S: 83/M [address] [facility] Unit #: [id number] Loc: V.S15 [place] [address] Phys: Destini Ordaz NP Acct: [id number] Dis Date: Status: ADM IN PHONE #: [phone] Exam Date: 01/20/201945 FAX #: [phone] Reason: sob EXAMS: CPT CODE: [id number] XR CHEST 1 V [id number] CLINICAL HISTORY: Shortness of breath TECHNIQUE: AP chest x-ray COMPARISON: Previous day. IMPRESSION: Worsening patchy bibasilar airspace opacification and small effusions. Cardiomegaly. Atherosclerotic vascular calcification of the thoracic aorta. ET tube, NG tube, right permacath, and left central venous catheter. LOCATION: [facility] at 0804 Reported and signed by: Willow Robles D.O. CC: Destini Ordaz MUSIC CRITIC; Wellington Pace MD Technologist: Blessing Vazquez Trnscrd Date/Time/By: 9 (0804) : By: [email or web address] Orig Print D/T: S: 01/20/2019 (1007) PAGE 1 Signed Report BASIC METABOLIC [id number] 05:25:00* Test Item Value Reference Range Interpretation Comments SODIUM (test code = NA) 143 mmol/L 136-145 N POTASSIUM (test code = K) 4.6 mmol/L 3.5-5.1 N CHLORIDE (test code = CL) 107.0 mmol/L 98-107 N CARBON DIOXIDE (test code = CO2) 26.0 mmol/L 21-32 N ANION GAP (test code = GAP) 14.6 10-20 N GLUCOSE (test code = GLU) 231 mg/dL 74-106 H BLOOD UREA NITROGEN (test code = BUN) 55 mg/dL 7-18 H RESULT VERIFIED BY REPEAT ANALYSIS GLOMERULAR FILTRATION RATE (test code = GFR) 7 mL/min >=60 Estimated GFR by using Modified MDRD formula.Chronic kidney disease is defined as either kidney damageor GFR <60 mL/min/1.73 m2 for >3 months. CREATININE (test code = CREAT) 7.50 mg/dL 0.7-1.3 H BUN/CREATININE RATIO (test code = BUN/CREA) 7.3 10-20 L CALCIUM (test code = CA) 9.0 mg/dL 8.5-10.1 N [id number] 05:25:00* Test Item Value Reference Range Interpretation Comments PHOSPHORUS (test code = PHOS) 5.3 mg/dL 2.5-4.9 H [id number] 05:25:00* Test Item Value Reference Range Interpretation Comments MAGNESIUM (test code = MAG) 2.2 mg/dL 1.8-2.4 N CALCIUM [id number] 05:25:00* Test Item Value Reference Range Interpretation Comments CALCIUM IONIZED (test code = PAUL) 1.22 mmol/L 1.12-1.32 N CBC W/MANUAL [id number] 05:22:00* Test Item Value Reference Range Interpretation Comments WHITE BLOOD CELL (test code = WBC) 9.6 K/mm3 4.5-12.5 N RED BLOOD CELL (test code = RBC) 2.52 mill/mm3 4.0-5.8 L HEMOGLOBIN (test code = HGB) 7.5 gram/dL 13.0-17.5 L HEMATOCRIT (test code = HCT) 25.6 % 42.0-52.0 L MEAN CELL VOLUME (test code = MCV) 101.6 fL 80-98 H MEAN CELL HGB (test code = MCH) 29.8 picogram 27.0-33.0 N MEAN CELL HGB CONCETRATION (test code = MCHC) 29.3 gram/dL 33.0-36. 0 L RED CELL DISTRIBUTION WIDTH (test code = RDW) 16.1 % 11.6-16. 2 N RED CELL DISTRIBUTION WIDTH SD (test code = RDW-SD) 59.7 fL 37 .0-51.0 H PLATELET COUNT (test code = PLT) 154 K/mm3 150-450 N MEAN PLATELET VOLUME (test code = MPV) 9.8 fL 6.7-11.0 N IMMATURE GRANULOCYTE % (test code = IG%) 1.4 % 0.0-5.0 N NUCLEATED RBC % (test code = NRBC%) 0.3 % 0-0 H NEUTROPHIL # (test code = NT#) 7.52 K/mm3 1.8-7.7 N IMMATURE GRANULOCYTE # (test code = IG#) 0.13 x10 3/uL 0-0.03 H LYMPHOCYTE # (test code = LY#) 0.68 K/mm3 1.0-5.0 L MONOCYTE # (test code = MO#) 0.74 K/mm3 0-0.8 N EOSINOPHIL # (test code = EO#) 0.45 K/mm3 0.0-0.5 N BASOPHIL # (test code = BA#) 0.05 K/mm3 0.0-0.2 N NUCLEATED RBC # (test code = NRBC#) 0.03 K/mm3 0.0-0.1 N MANUAL DIFF REQUIRED (test code = MDIFF) YES STAIN ACCEPTABILITY (test code = STN ACCEPTABLE) STAIN ACCEPTABLE TOTAL CELLS COUNTED (test code = TCC) 108 #CELLS SEGMENTED NEUTROPHILS (test code = SEG) 66.7 % 39-69 N BAND NEUTROPHIL (test code = BAND) 13.0 % 0-10 H LYMPHOCYTE (test code = LYMPH) 3.7 % 25-55 L REACTIVE LYMPH (test code = RELYMPH) 3.7 % MONOCYTE (test code = MON) 4.6 % 0-10 N EOSINOPHIL (test code = EOS) 7.4 % 0.0-5.0 H BASOPHIL (test code = BASO) 0.9 % 0-1.0 N METAMYELOCYTE (test code = META) 0 % 0-0 N MYELOCYTE (test code = MYELO) 0 % 0.0-0.0 N PROMYELOCYTE (test code = PROM) 0 % 0-0 N BASOPHILIC STIPPLING (test code = STP) 1+ ANISOCYTOSIS (test code = ANISO) 2+ MACROCYTOSIS (test code = MACR) 2+ MORPHOLOGY COMMENT (test code = MOC) NORMAL PLATELET ESTIMATE (test code = PLTEST) ADEQUATE PLATELET MORPHOLOGY (test code = PLTMORPH) NORMAL IMMATURE FORMS (test code = IMMAT) 0 % 0-0 N PROCALCITONIN (PCT)2019-01-20 05:08:00* Test Item Value Reference Range Interpretation Comments PROCALCITONIN (PCT) (test code = PROCAL) 25.75 ng/ml Concentration Interpretation (ng/mL) <0.51 Sepsis is not likely. Local bacterial infection is possible. (LOW RISK for progression to Sepsis) 0.51 - 2.00 Sepsis is possible, but other conditions are known to elevate PCT as well. (MODERATE RISK for progression to Sepsis) > 2.00 Sepsis is likely, unless other causes are known. (HIGH RISK for progression to Severe Sepsis or Septic Shock) 10.00 High likelihood of Severe Sepsis or Septic or higher Shock. *Increased PCT levels may not always be related to systemic bacterial infection.*Low PCT levels do not automatically exclude the presence of bacterial infection.*All results should be interpreted taking into account the patients history. BASIC METABOLIC [id number] 05:02:00* Test Item Value Reference Range Interpretation Comments SODIUM (test code = NA) 143 mmol/L 136-145 N POTASSIUM (test code = K) 4.6 mmol/L 3.5-5.1 N CHLORIDE (test code = CL) 107.0 mmol/L 98-107 N CARBON DIOXIDE (test code = CO2) 26.0 mmol/L 21-32 N ANION GAP (test code = GAP) 14.6 10-20 N GLUCOSE (test code = GLU) 231 mg/dL 74-106 H BLOOD UREA NITROGEN (test code = BUN) 55 mg/dL 7-18 H RESULT VERIFIED BY REPEAT ANALYSIS GLOMERULAR FILTRATION RATE (test code = GFR) 7 mL/min >=60 Estimated GFR by using Modified MDRD formula.Chronic kidney disease is defined as either kidney damageor GFR <60 mL/min/1.73 m2 for >3 months. CREATININE (test code = CREAT) 7.50 mg/dL 0.7-1.3 H BUN/CREATININE RATIO (test code = BUN/CREA) 7.3 10-20 L CALCIUM (test code = CA) 9.0 mg/dL 8.5-10.1 N [id number] 05:02:00* Test Item Value Reference Range Interpretation Comments PHOSPHORUS (test code = PHOS) 5.3 mg/dL 2.5-4.9 H [id number] 05:02:00* Test Item Value Reference Range Interpretation Comments MAGNESIUM (test code = MAG) 2.2 mg/dL 1.8-2.4 N CALCIUM [id number] 05:02:00* Test Item Value Reference Range Interpretation Comments CALCIUM IONIZED (test code = PAUL) mmol/L 1.12-1.32 BASIC METABOLIC [id number] 04:38:00* Test Item Value Reference Range Interpretation Comments SODIUM (test code = NA) 143 mmol/L 136-145 N POTASSIUM (test code = K) 4.6 mmol/L 3.5-5.1 N CHLORIDE (test code = CL) 107.0 mmol/L 98-107 N CARBON DIOXIDE (test code = CO2) mmol/L 21-32 ANION GAP (test code = GAP) 10-20 GLUCOSE (test code = GLU) mg/dL 74-106 BLOOD UREA NITROGEN (test code = BUN) mg/dL 7-18 GLOMERULAR FILTRATION RATE (test code = GFR) mL/min >=60 CREATININE (test code = CREAT) mg/dL 0.7-1.3 BUN/CREATININE RATIO (test code = BUN/CREA) 10-20 CALCIUM (test code = CA) mg/dL 8.5-10.1 [id number] 04:38:00* Test Item Value Reference Range Interpretation Comments PHOSPHORUS (test code = PHOS) mg/dL 2.5-4.9 [id number] 04:38:00* Test Item Value Reference Range Interpretation Comments MAGNESIUM (test code = MAG) mg/dL 1.8-2.4 CALCIUM [id number] 04:38:00* Test Item Value Reference Range Interpretation Comments CALCIUM IONIZED (test code = PAUL) mmol/L 1.12-1.32 PROTHROMBIN [id number] 04:28:00* Test Item Value Reference Range Interpretation Comments PROTHROMBIN TIME PATIENT (test code = PTP) 20.3 seconds 9.0-14.0 H INTERNATIONAL NORMAL RATIO (test code = INR) 1.7 0.8-1.2 H The therapeutic range for oral anticoagulant therapy formost indications is an international normalized ratio (INR)of between 2.0 and 3.0. The recommended therapeutic INRrange for various clinical situations is listed below: Clinical Situation INR range Pulmonary e mbolism treatment (2.0-3.0)Venous thrombosis treatmentVenous thrombosis prophylaxis (high risk surgery)Prevention of systemic embolism from: Acute myocardial infarction Valvular heart disease Atrial fibrillation Mechanical prosthetic heart valves (2.5-3.5) IS PATIENT ON ANTICOAGULANTS? YLIST ANTICOAGULANTS COUMADINCBC W/MANUAL DIFF 2019-01-20 04:17:00* Test Item Value Reference Range Interpretation Comments WHITE BLOOD CELL (test code = WBC) 9.6 K/mm3 4.5-12.5 N RED BLOOD CELL (test code = RBC) 2.52 mill/mm3 4.0-5.8 L HEMOGLOBIN (test code = HGB) 7.5 gram/dL 13.0-17.5 L HEMATOCRIT (test code = HCT) 25.6 % 42.0-52.0 L MEAN CELL VOLUME (test code = MCV) 101.6 fL 80-98 H MEAN CELL HGB (test code = MCH) 29.8 picogram 27.0-33.0 N MEAN CELL HGB CONCETRATION (test code = MCHC) 29.3 gram/dL 33.0-36. 0 L RED CELL DISTRIBUTION WIDTH (test code = RDW) 16.1 % 11.6-16. 2 N RED CELL DISTRIBUTION WIDTH SD (test code = RDW-SD) 59.7 fL 37 .0-51.0 H PLATELET COUNT (test code = PLT) 154 K/mm3 150-450 N MEAN PLATELET VOLUME (test code = MPV) 9.8 fL 6.7-11.0 N IMMATURE GRANULOCYTE % (test code = IG%) 1.4 % 0.0-5.0 N NUCLEATED RBC % (test code = NRBC%) 0.3 % 0-0 H NEUTROPHIL # (test code = NT#) 7.52 K/mm3 1.8-7.7 N IMMATURE GRANULOCYTE # (test code = IG#) 0.13 x10 3/uL 0-0.03 H LYMPHOCYTE # (test code = LY#) 0.68 K/mm3 1.0-5.0 L MONOCYTE # (test code = MO#) 0.74 K/mm3 0-0.8 N EOSINOPHIL # (test code = EO#) 0.45 K/mm3 0.0-0.5 N BASOPHIL # (test code = BA#) 0.05 K/mm3 0.0-0.2 N NUCLEATED RBC # (test code = NRBC#) 0.03 K/mm3 0.0-0.1 N MANUAL DIFF REQUIRED (test code = MDIFF) YES STAIN ACCEPTABILITY (test code = STN ACCEPTABLE) TOTAL CELLS COUNTED (test code = TCC) #CELLS SEGMENTED NEUTROPHILS (test code = SEG) % 39-69 LYMPHOCYTE (test code = LYMPH) % 25-55 MONOCYTE (test code = MON) % 0-10 EOSINOPHIL (test code = EOS) % 0.0-5.0 CABOT RINGS (test code = CAB) MORPHOLOGY COMMENT (test code = MOC) PLATELET ESTIMATE (test code = PLTEST) PLATELET MORPHOLOGY (test code = PLTMORPH) CBC W/MANUAL [id number] 04:17:00* Test Item Value Reference Range Interpretation Comments WHITE BLOOD CELL (test code = WBC) 9.6 K/mm3 4.5-12.5 N RED BLOOD CELL (test code = RBC) 2.52 mill/mm3 4.0-5.8 L HEMOGLOBIN (test code = HGB) 7.5 gram/dL 13.0-17.5 L HEMATOCRIT (test code = HCT) 25.6 % 42.0-52.0 L MEAN CELL VOLUME (test code = MCV) 101.6 fL 80-98 H MEAN CELL HGB (test code = MCH) 29.8 picogram 27.0-33.0 N MEAN CELL HGB CONCETRATION (test code = MCHC) 29.3 gram/dL 33.0-36. 0 L RED CELL DISTRIBUTION WIDTH (test code = RDW) 16.1 % 11.6-16. 2 N RED CELL DISTRIBUTION WIDTH SD (test code = RDW-SD) 59.7 fL 37 .0-51.0 H PLATELET COUNT (test code = PLT) 154 K/mm3 150-450 N MEAN PLATELET VOLUME (test code = MPV) 9.8 fL 6.7-11.0 N IMMATURE GRANULOCYTE % (test code = IG%) 1.4 % 0.0-5.0 N NUCLEATED RBC % (test code = NRBC%) 0.3 % 0-0 H NEUTROPHIL # (test code = NT#) 7.52 K/mm3 1.8-7.7 N IMMATURE GRANULOCYTE # (test code = IG#) 0.13 x10 3/uL 0-0.03 H LYMPHOCYTE # (test code = LY#) 0.68 K/mm3 1.0-5.0 L MONOCYTE # (test code = MO#) 0.74 K/mm3 0-0.8 N EOSINOPHIL # (test code = EO#) 0.45 K/mm3 0.0-0.5 N BASOPHIL # (test code = BA#) 0.05 K/mm3 0.0-0.2 N NUCLEATED RBC # (test code = NRBC#) 0.03 K/mm3 0.0-0.1 N MANUAL DIFF REQUIRED (test code = MDIFF) YES STAIN ACCEPTABILITY (test code = STN ACCEPTABLE) TOTAL CELLS COUNTED (test code = TCC) #CELLS SEGMENTED NEUTROPHILS (test code = SEG) % 39-69 LYMPHOCYTE (test code = LYMPH) % 25-55 MONOCYTE (test code = MON) % 0-10 EOSINOPHIL (test code = EOS) % 0.0-5.0 CABOT RINGS (test code = CAB) MORPHOLOGY COMMENT (test code = MOC) PLATELET ESTIMATE (test code = PLTEST) PLATELET MORPHOLOGY (test code = PLTMORPH) CBC W/MANUAL [id number] 04:17:00* Test Item Value Reference Range Interpretation Comments WHITE BLOOD CELL (test code = WBC) 9.6 K/mm3 4.5-12.5 N RED BLOOD CELL (test code = RBC) 2.52 mill/mm3 4.0-5.8 L HEMOGLOBIN (test code = HGB) 7.5 gram/dL 13.0-17.5 L HEMATOCRIT (test code = HCT) 25.6 % 42.0-52.0 L MEAN CELL VOLUME (test code = MCV) 101.6 fL 80-98 H MEAN CELL HGB (test code = MCH) 29.8 picogram 27.0-33.0 N MEAN CELL HGB CONCETRATION (test code = MCHC) 29.3 gram/dL 33.0-36. 0 L RED CELL DISTRIBUTION WIDTH (test code = RDW) 16.1 % 11.6-16. 2 N RED CELL DISTRIBUTION WIDTH SD (test code = RDW-SD) 59.7 fL 37 .0-51.0 H PLATELET COUNT (test code = PLT) 154 K/mm3 150-450 N MEAN PLATELET VOLUME (test code = MPV) 9.8 fL 6.7-11.0 N IMMATURE GRANULOCYTE % (test code = IG%) 1.4 % 0.0-5.0 N NUCLEATED RBC % (test code = NRBC%) 0.3 % 0-0 H NEUTROPHIL # (test code = NT#) 7.52 K/mm3 1.8-7.7 N IMMATURE GRANULOCYTE # (test code = IG#) 0.13 x10 3/uL 0-0.03 H LYMPHOCYTE # (test code = LY#) 0.68 K/mm3 1.0-5.0 L MONOCYTE # (test code = MO#) 0.74 K/mm3 0-0.8 N EOSINOPHIL # (test code = EO#) 0.45 K/mm3 0.0-0.5 N BASOPHIL # (test code = BA#) 0.05 K/mm3 0.0-0.2 N NUCLEATED RBC # (test code = NRBC#) 0.03 K/mm3 0.0-0.1 N MANUAL DIFF REQUIRED (test code = MDIFF) YES STAIN ACCEPTABILITY (test code = STN ACCEPTABLE) TOTAL CELLS COUNTED (test code = TCC) #CELLS SEGMENTED NEUTROPHILS (test code = SEG) % 39-69 LYMPHOCYTE (test code = LYMPH) % 25-55 MONOCYTE (test code = MON) % 0-10 EOSINOPHIL (test code = EOS) % 0.0-5.0 MORPHOLOGY COMMENT (test code = MOC) PLATELET ESTIMATE (test code = PLTEST) PLATELET MORPHOLOGY (test code = PLTMORPH) CBC W/MANUAL [id number] 04:17:00* Test Item Value Reference Range Interpretation Comments WHITE BLOOD CELL (test code = WBC) 9.6 K/mm3 4.5-12.5 N RED BLOOD CELL (test code = RBC) 2.52 mill/mm3 4.0-5.8 L HEMOGLOBIN (test code = HGB) 7.5 gram/dL 13.0-17.5 L HEMATOCRIT (test code = HCT) 25.6 % 42.0-52.0 L MEAN CELL VOLUME (test code = MCV) 101.6 fL 80-98 H MEAN CELL HGB (test code = MCH) 29.8 picogram 27.0-33.0 N MEAN CELL HGB CONCETRATION (test code = MCHC) 29.3 gram/dL 33.0-36. 0 L RED CELL DISTRIBUTION WIDTH (test code = RDW) 16.1 % 11.6-16. 2 N RED CELL DISTRIBUTION WIDTH SD (test code = RDW-SD) 59.7 fL 37 .0-51.0 H PLATELET COUNT (test code = PLT) 154 K/mm3 150-450 N MEAN PLATELET VOLUME (test code = MPV) 9.8 fL 6.7-11.0 N IMMATURE GRANULOCYTE % (test code = IG%) 1.4 % 0.0-5.0 N NUCLEATED RBC % (test code = NRBC%) 0.3 % 0-0 H NEUTROPHIL # (test code = NT#) 7.52 K/mm3 1.8-7.7 N IMMATURE GRANULOCYTE # (test code = IG#) 0.13 x10 3/uL 0-0.03 H LYMPHOCYTE # (test code = LY#) 0.68 K/mm3 1.0-5.0 L MONOCYTE # (test code = MO#) 0.74 K/mm3 0-0.8 N EOSINOPHIL # (test code = EO#) 0.45 K/mm3 0.0-0.5 N BASOPHIL # (test code = BA#) 0.05 K/mm3 0.0-0.2 N NUCLEATED RBC # (test code = NRBC#) 0.03 K/mm3 0.0-0.1 N MANUAL DIFF REQUIRED (test code = MDIFF) YES STAIN ACCEPTABILITY (test code = STN ACCEPTABLE) TOTAL CELLS COUNTED (test code = TCC) #CELLS SEGMENTED NEUTROPHILS (test code = SEG) % 39-69 LYMPHOCYTE (test code = LYMPH) % 25-55 MONOCYTE (test code = MON) % 0-10 MORPHOLOGY COMMENT (test code = MOC) PLATELET ESTIMATE (test code = PLTEST) PLATELET MORPHOLOGY (test code = PLTMORPH) CBC W/MANUAL [id number] 04:17:00* Test Item Value Reference Range Interpretation Comments WHITE BLOOD CELL (test code = WBC) 9.6 K/mm3 4.5-12.5 N RED BLOOD CELL (test code = RBC) 2.52 mill/mm3 4.0-5.8 L HEMOGLOBIN (test code = HGB) 7.5 gram/dL 13.0-17.5 L HEMATOCRIT (test code = HCT) 25.6 % 42.0-52.0 L MEAN CELL VOLUME (test code = MCV) 101.6 fL 80-98 H MEAN CELL HGB (test code = MCH) 29.8 picogram 27.0-33.0 N MEAN CELL HGB CONCETRATION (test code = MCHC) 29.3 gram/dL 33.0-36. 0 L RED CELL DISTRIBUTION WIDTH (test code = RDW) 16.1 % 11.6-16. 2 N RED CELL DISTRIBUTION WIDTH SD (test code = RDW-SD) 59.7 fL 37 .0-51.0 H PLATELET COUNT (test code = PLT) 154 K/mm3 150-450 N MEAN PLATELET VOLUME (test code = MPV) 9.8 fL 6.7-11.0 N IMMATURE GRANULOCYTE % (test code = IG%) 1.4 % 0.0-5.0 N NUCLEATED RBC % (test code = NRBC%) 0.3 % 0-0 H NEUTROPHIL # (test code = NT#) 7.52 K/mm3 1.8-7.7 N IMMATURE GRANULOCYTE # (test code = IG#) 0.13 x10 3/uL 0-0.03 H LYMPHOCYTE # (test code = LY#) 0.68 K/mm3 1.0-5.0 L MONOCYTE # (test code = MO#) 0.74 K/mm3 0-0.8 N EOSINOPHIL # (test code = EO#) 0.45 K/mm3 0.0-0.5 N BASOPHIL # (test code = BA#) 0.05 K/mm3 0.0-0.2 N NUCLEATED RBC # (test code = NRBC#) 0.03 K/mm3 0.0-0.1 N MANUAL DIFF REQUIRED (test code = MDIFF) YES STAIN ACCEPTABILITY (test code = STN ACCEPTABLE) TOTAL CELLS COUNTED (test code = TCC) #CELLS SEGMENTED NEUTROPHILS (test code = SEG) % 39-69 LYMPHOCYTE (test code = LYMPH) % 25-55 MONOCYTE (test code = MON) % 0-10 EOSINOPHIL (test code = EOS) % 0.0-5.0 CABOT RINGS (test code = CAB) MORPHOLOGY COMMENT (test code = MOC) PLATELET ESTIMATE (test code = PLTEST) PLATELET MORPHOLOGY (test code = PLTMORPH) [id number] 23:41:00* Test Item Value Reference Range Interpretation Comments GLUBED (test code = GLUBED) 238 mg/dL 74-106 H Performed by certified cream separator operator at [facility] [id number] 19:45:00* Test Item Value Reference Range Interpretation Comments GLUBED (test code = GLUBED) 287 mg/dL 74-106 H Performed by certified cream separator operator at [facility] T4 [id number] 18:34:00* Test Item Value Reference Range Interpretation Comments T4 FREE (test code = T4F) 1.03 ng/dL 0.76-1.46 N THYROID STIMULATING [id number] 18:34:00* Test Item Value Reference Range Interpretation Comments THYROID STIMULATING HORMONE (test code = TSH) 0.051 uIU/mL 0.36-3.7 4 L TSH REFERENCE RANGES: EUTHYROID: 0.35 - 4.3 mIU/mL HYPO : > 5.5 mIU/mL HYPER : < 0.35 mIU/mL [id number] 18:30:00* Test Item Value Reference Range Interpretation Comments GLYCOSYLATED HEMOGLOBIN (HA1C) (test code = GLYHGB) 7.0 % HbA1 4. 8-6.0 H ESTIMATED AVERAGE GLUCOSE (test code = EAG) 154 MG/DL [id number] 17:57:00* Test Item Value Reference Range Interpretation Comments GLUBED (test code = GLUBED) 272 mg/dL 74-106 H Performed by certified cream separator operator at [facility] [id number] 14:34:00* Test Item Value Reference Range Interpretation Comments GLUBED (test code = GLUBED) 298 mg/dL 74-106 H Performed by certified cream separator operator at [facility] [id number] 13:26:00* Test Item Value Reference Range Interpretation Comments GLUBED (test code = GLUBED) 302 mg/dL 74-106 H Performed by certified cream separator operator at [facility] - XR CHEST 1 [id number] 07:43:00 FAX: Blanco Joshua [phone] [place]: St: ADM FAX: Wellington Hercules MD [phone] Name: MELOARY PETRA [facility] : 1935 Age/S: 83/M [address] [facility] Unit #: [id number] Loc: V.[address] [place] [id number] Phys: Blanco Joshua Acct: [id number] Dis Date: Status: ADM IN PHONE #: [phone] Exam Date: 01/19/2019419 FAX #: [phone] Reason: VENT EXAMS: CPT CODE: [id number] XR CHEST 1 V [id number] REASON FOR EXAM: VENT Exam Order Date: 01/19/2019 4:00 AM Ordering Jerry: KAREN Thorpe PROCEDURE: - XR CHEST 1 V COMPARISON: Frontal chest x-ray the previous morning FINDINGS: ET tube, right IJ dialysis catheter, left subclavian central line, and enteric suction tube are unchanged. Opacities in the mid to lower lungs bilaterally are unchanged when accounting for differences in patient positioning and may represent any combination of layering effusions, atelectasis, and pneumonia. Cardiomediastinal silhouette appears prominent however this may be due to diminished lung volumes. Musculoskeletal structures are unchanged. IMPRESSION: No significant change from prior exam. El ectronically Signed by Richi Godinez MD on 01/19/2019 at 0743 Reported and signed by: iRchi Godinez MD CC: Blanco Joshua PA; Wellington Velez MD Technologist: YELENA ATKINS RT; JAMES HI RT(R) Trnscrd Date/Time/By: 01/19/2019 (0743) : By: [email or web address] 1 Orig Print D/T: S: 01/19/2019 ([id number]) PAGE 1 Signed Report GLUBED 2019-01-19 06:21:00* Test Item Value Reference Range Interpretation Comments GLUBED (test code = GLUBED) 254 mg/dL 74-106 H Performed by certified cream separator operator at [facility] PROCALCITONIN (PCT)2019-01-19 06:18:00* Test Item Value Reference Range Interpretation Comments PROCALCITONIN (PCT) (test code = PROCAL) 37.02 ng/ml Concentration Interpretation (ng/mL) <0.51 Sepsis is not likely. Local bacterial infection is possible. (LOW RISK for progression to Sepsis) 0.51 - 2.00 Sepsis is possible, but other conditions are known to elevate PCT as well. (MODERATE RISK for progression to Sepsis) > 2.00 Sepsis is likely, unless other causes are known. (HIGH RISK for progression to Severe Sepsis or Septic Shock) 10.00 High likelihood of Severe Sepsis or Septic or higher Shock. *Increased PCT levels may not always be related to systemic bacterial infection.*Low PCT levels do not automatically exclude the presence of bacterial infection.*All results should be interpreted taking into account the patients history. BASIC METABOLIC [id number] 06:08:00* Test Item Value Reference Range Interpretation Comments SODIUM (test code = NA) 141 mmol/L 136-145 N POTASSIUM (test code = K) 4.5 mmol/L 3.5-5.1 N CHLORIDE (test code = CL) 105.0 mmol/L 98-107 N CARBON DIOXIDE (test code = CO2) 27.0 mmol/L 21-32 N ANION GAP (test code = GAP) 13.5 10-20 N GLUCOSE (test code = GLU) 279 mg/dL 74-106 H BLOOD UREA NITROGEN (test code = BUN) 32 mg/dL 7-18 H RESULT VERIFIED BY REPEAT ANALYSIS GLOMERULAR FILTRATION RATE (test code = GFR) 9 mL/min >=60 Estimated GFR by using Modified MDRD formula.Chronic kidney disease is defined as either kidney damageor GFR <60 mL/min/1.73 m2 for >3 months. CREATININE (test code = CREAT) 6.00 mg/dL 0.7-1.3 H BUN/CREATININE RATIO (test code = BUN/CREA) 5.3 10-20 L CALCIUM (test code = CA) 8.8 mg/dL 8.5-10.1 N [id number] 06:08:00* Test Item Value Reference Range Interpretation Comments PHOSPHORUS (test code = PHOS) 4.4 mg/dL 2.5-4.9 N [id number] 06:08:00* Test Item Value Reference Range Interpretation Comments MAGNESIUM (test code = MAG) 1.9 mg/dL 1.8-2.4 N CALCIUM [id number] 06:08:00* Test Item Value Reference Range Interpretation Comments CALCIUM IONIZED (test code = PAUL) 1.23 mmol/L 1.12-1.32 N PROTHROMBIN [id number] 05:47:00* Test Item Value Reference Range Interpretation Comments PROTHROMBIN TIME PATIENT (test code = PTP) 22.5 seconds 9.0-14.0 H INTERNATIONAL NORMAL RATIO (test code = INR) 1.9 0.8-1.2 H The therapeutic range for oral anticoagulant therapy formost indications is an international normalized ratio (INR)of between 2.0 and 3.0. The recommended therapeutic INRrange for various clinical situations is listed below: Clinical Situation INR range Pulmonary e mbolism treatment (2.0-3.0)Venous thrombosis treatmentVenous thrombosis prophylaxis (high risk surgery)Prevention of systemic embolism from: Acute myocardial infarction Valvular heart disease Atrial fibrillation Mechanical prosthetic heart valves (2.5-3.5) IS PATIENT ON ANTICOAGULANTS? YLIST ANTICOAGULANTS COUMADINCBC W/AUTO DIFF 2019-01-19 05:36:00* Test Item Value Reference Range Interpretation Comments WHITE BLOOD CELL (test code = WBC) 11.4 K/mm3 4.5-12.5 N RED BLOOD CELL (test code = RBC) 2.68 mill/mm3 4.0-5.8 L HEMOGLOBIN (test code = HGB) 8.0 gram/dL 13.0-17.5 L HEMATOCRIT (test code = HCT) 26.4 % 42.0-52.0 L MEAN CELL VOLUME (test code = MCV) 98.5 fL 80-98 H MEAN CELL HGB (test code = MCH) 29.9 picogram 27.0-33.0 N MEAN CELL HGB CONCETRATION (test code = MCHC) 30.3 gram/dL 33.0-36. 0 L RED CELL DISTRIBUTION WIDTH (test code = RDW) 15.9 % 11.6-16. 2 N RED CELL DISTRIBUTION WIDTH SD (test code = RDW-SD) 56.9 fL 37 .0-51.0 H PLATELET COUNT (test code = PLT) 165 K/mm3 150-450 N MEAN PLATELET VOLUME (test code = MPV) 10.2 fL 6.7-11.0 N NEUTROPHIL % (test code = NT%) 79.9 % 39.0-69.0 H IMMATURE GRANULOCYTE % (test code = IG%) 1.6 % 0.0-5.0 N LYMPHOCYTE % (test code = LY%) 7.3 % 25.0-55.0 L MONOCYTE % (test code = MO%) 7.8 % 0.0-10.0 N EOSINOPHIL % (test code = EO%) 3.1 % 0.0-5.0 N BASOPHIL % (test code = BA%) 0.3 % 0.0-1.0 N NUCLEATED RBC % (test code = NRBC%) 0.3 % 0-0 H NEUTROPHIL # (test code = NT#) 9.14 K/mm3 1.8-7.7 H IMMATURE GRANULOCYTE # (test code = IG#) 0.18 x10 3/uL 0-0.03 H LYMPHOCYTE # (test code = LY#) 0.84 K/mm3 1.0-5.0 L MONOCYTE # (test code = MO#) 0.89 K/mm3 0-0.8 H EOSINOPHIL # (test code = EO#) 0.35 K/mm3 0.0-0.5 N BASOPHIL # (test code = BA#) 0.03 K/mm3 0.0-0.2 N NUCLEATED RBC # (test code = NRBC#) 0.03 K/mm3 0.0-0.1 N MANUAL DIFF REQUIRED (test code = MDIFF) NO BASIC METABOLIC [id number] 05:16:00* Test Item Value Reference Range Interpretation Comments SODIUM (test code = NA) 141 mmol/L 136-145 N POTASSIUM (test code = K) 4.5 mmol/L 3.5-5.1 N CHLORIDE (test code = CL) 105.0 mmol/L 98-107 N CARBON DIOXIDE (test code = CO2) mmol/L 21-32 ANION GAP (test code = GAP) 10-20 GLUCOSE (test code = GLU) mg/dL 74-106 BLOOD UREA NITROGEN (test code = BUN) mg/dL 7-18 GLOMERULAR FILTRATION RATE (test code = GFR) mL/min >=60 CREATININE (test code = CREAT) mg/dL 0.7-1.3 BUN/CREATININE RATIO (test code = BUN/CREA) 10-20 CALCIUM (test code = CA) mg/dL 8.5-10.1 [id number] 05:16:00* Test Item Value Reference Range Interpretation Comments PHOSPHORUS (test code = PHOS) mg/dL 2.5-4.9 [id number] 05:16:00* Test Item Value Reference Range Interpretation Comments MAGNESIUM (test code = MAG) mg/dL 1.8-2.4 CALCIUM [id number] 05:16:00* Test Item Value Reference Range Interpretation Comments CALCIUM IONIZED (test code = PAUL) mmol/L 1.12-1.32 BASIC METABOLIC [id number] 05:16:00* Test Item Value Reference Range Interpretation Comments SODIUM (test code = NA) 141 mmol/L 136-145 N POTASSIUM (test code = K) 4.5 mmol/L 3.5-5.1 N CHLORIDE (test code = CL) 105.0 mmol/L 98-107 N CARBON DIOXIDE (test code = CO2) mmol/L 21-32 ANION GAP (test code = GAP) 10-20 GLUCOSE (test code = GLU) mg/dL 74-106 BLOOD UREA NITROGEN (test code = BUN) mg/dL 7-18 GLOMERULAR FILTRATION RATE (test code = GFR) mL/min >=60 CREATININE (test code = CREAT) mg/dL 0.7-1.3 BUN/CREATININE RATIO (test code = BUN/CREA) 10-20 CALCIUM (test code = CA) mg/dL 8.5-10.1 [id number] 05:16:00* Test Item Value Reference Range Interpretation Comments PHOSPHORUS (test code = PHOS) mg/dL 2.5-4.9 [id number] 05:16:00* Test Item Value Reference Range Interpretation Comments MAGNESIUM (test code = MAG) mg/dL 1.8-2.4 CALCIUM [id number] 05:16:00* Test Item Value Reference Range Interpretation Comments CALCIUM IONIZED (test code = PAUL) 1.23 mmol/L 1.12-1.32 N COMPREHENSIVE METABOLIC [id number] 23:40:00* Test Item Value Reference Range Interpretation Comments SODIUM (test code = NA) 143 mmol/L 136-145 N POTASSIUM (test code = K) 4.1 mmol/L 3.5-5.1 N CHLORIDE (test code = CL) 104.0 mmol/L 98-107 N CARBON DIOXIDE (test code = CO2) 28.0 mmol/L 21-32 N ANION GAP (test code = GAP) 15.1 10-20 N GLUCOSE (test code = GLU) 183 mg/dL 74-106 H BLOOD UREA NITROGEN (test code = BUN) 24 mg/dL 7-18 H RESULT VERIFIED BY REPEAT ANALYSIS GLOMERULAR FILTRATION RATE (test code = GFR) 11 mL/min >=60 Estimated GFR by using Modified MDRD formula.Chronic kidney disease is defined as either kidney damageor GFR <60 mL/min/1.73 m2 for >3 months. CREATININE (test code = CREAT) 5.00 mg/dL 0.7-1.3 H BUN/CREATININE RATIO (test code = BUN/CREA) 4.8 10-20 L TOTAL PROTEIN (test code = PROT) 7.1 gram/dL 6.4-8.2 N ALBUMIN (test code = ALB) 3.6 g/dL 3.4-5.0 N GLOBULIN (test code = GLOB) 3.5 gram/dL 2.7-4.2 N ALBUMIN/GLOBULIN RATIO (test code = A/G) 1.0 0.75-1.50 N CALCIUM (test code = CA) 8.8 mg/dL 8.5-10.1 N BILIRUBIN TOTAL (test code = BILT) 0.60 mg/dL 0.0-1.0 N SGOT/AST (test code = AST) 31 IUnit/L 15-37 N SGPT/ALT (test code = ALT) 20 IUnit/L 12-78 N ALKALINE PHOSPHATASE TOTAL (test code = ALKP) 74 IUnit/L 45-117 N Note change in reference range due to change in reagent. COMPREHENSIVE METABOLIC [id number] 23:20:00* Test Item Value Reference Range Interpretation Comments SODIUM (test code = NA) 143 mmol/L 136-145 N POTASSIUM (test code = K) 4.1 mmol/L 3.5-5.1 N CHLORIDE (test code = CL) 104.0 mmol/L 98-107 N CARBON DIOXIDE (test code = CO2) mmol/L 21-32 ANION GAP (test code = GAP) 10-20 GLUCOSE (test code = GLU) mg/dL 74-106 BLOOD UREA NITROGEN (test code = BUN) mg/dL 7-18 GLOMERULAR FILTRATION RATE (test code = GFR) mL/min >=60 CREATININE (test code = CREAT) mg/dL 0.7-1.3 BUN/CREATININE RATIO (test code = BUN/CREA) 10-20 TOTAL PROTEIN (test code = PROT) gram/dL 6.4-8.2 ALBUMIN (test code = ALB) g/dL 3.4-5.0 GLOBULIN (test code = GLOB) gram/dL 2.7-4.2 ALBUMIN/GLOBULIN RATIO (test code = A/G) 0.75-1.50 CALCIUM (test code = CA) mg/dL 8.5-10.1 BILIRUBIN TOTAL (test code = BILT) mg/dL 0.0-1.0 SGOT/AST (test code = AST) IUnit/L 15-37 SGPT/ALT (test code = ALT) IUnit/L 12-78 ALKALINE PHOSPHATASE TOTAL (test code = ALKP) IUnit/L 45-117 [id number] 22:36:00* Test Item Value Reference Range Interpretation Comments GLUBED (test code = GLUBED) 188 mg/dL 74-106 H Performed by certified cream separator operator at [facility] [id number] 22:36:00* Test Item Value Reference Range Interpretation Comments GLUBED (test code = GLUBED) 176 mg/dL 74-106 H Performed by certified cream separator operator at [facility] [id number] 22:36:00* Test Item Value Reference Range Interpretation Comments GLUBED (test code = GLUBED) 132 mg/dL 74-106 H Performed by certified cream separator operator at [facility] [id number] 19:33:00* Test Item Value Reference Range Interpretation Comments GLUBED (test code = GLUBED) 177 mg/dL 74-106 H Performed by certified cream separator operator at [facility] [id number] 16:55:00* Test Item Value Reference Range Interpretation Comments GLUBED (test code = GLUBED) 190 mg/dL 74-106 H Performed by certified cream separator operator at [facility] [id number] 16:55:00* Test Item Value Reference Range Interpretation Comments GLUBED (test code = GLUBED) 203 mg/dL 74-106 H Performed by certified cream separator operator at [facility] BASIC METABOLIC [id number] 16:54:00* Test Item Value Reference Range Interpretation Comments SODIUM (test code = NA) 141 mmol/L 136-145 N POTASSIUM (test code = K) 4.8 mmol/L 3.5-5.1 N CHLORIDE (test code = CL) 103.0 mmol/L 98-107 N CARBON DIOXIDE (test code = CO2) 28.0 mmol/L 21-32 N ANION GAP (test code = GAP) 14.8 10-20 N GLUCOSE (test code = GLU) 206 mg/dL 74-106 H BLOOD UREA NITROGEN (test code = BUN) 44 mg/dL 7-18 H GLOMERULAR FILTRATION RATE (test code = GFR) 7 mL/min >=60 Estimated GFR by using Modified MDRD formula.Chronic kidney disease is defined as either kidney damageor GFR <60 mL/min/1.73 m2 for >3 months. CREATININE (test code = CREAT) 8.00 mg/dL 0.7-1.3 H BUN/CREATININE RATIO (test code = BUN/CREA) 5.5 10-20 L CALCIUM (test code = CA) 8.7 mg/dL 8.5-10.1 N BASIC METABOLIC [id number] 16:48:00* Test Item Value Reference Range Interpretation Comments SODIUM (test code = NA) 141 mmol/L 136-145 N POTASSIUM (test code = K) 4.8 mmol/L 3.5-5.1 N CHLORIDE (test code = CL) 103.0 mmol/L 98-107 N CARBON DIOXIDE (test code = CO2) mmol/L 21-32 ANION GAP (test code = GAP) 10-20 GLUCOSE (test code = GLU) mg/dL 74-106 BLOOD UREA NITROGEN (test code = BUN) mg/dL 7-18 GLOMERULAR FILTRATION RATE (test code = GFR) mL/min >=60 CREATININE (test code = CREAT) mg/dL 0.7-1.3 BUN/CREATININE RATIO (test code = BUN/CREA) 10-20 CALCIUM (test code = CA) mg/dL 8.5-10.1 [id number] 14:48:00* Test Item Value Reference Range Interpretation Comments GLUBED (test code = GLUBED) 229 mg/dL 74-106 H Performed by certified cream separator operator at [facility] [id number] 13:18:00* Test Item Value Reference Range Interpretation Comments GLUBED (test code = GLUBED) 182 mg/dL 74-106 H Performed by certified cream separator operator at [facility] [id number] 13:18:00* Test Item Value Reference Range Interpretation Comments GLUBED (test code = GLUBED) 137 mg/dL 74-106 H Performed by certified cream separator operator at [facility] [id number] 13:18:00* Test Item Value Reference Range Interpretation Comments GLUBED (test code = GLUBED) 148 mg/dL 74-106 H Performed by certified cream separator operator at [facility] COMPREHENSIVE METABOLIC [id number] 13:13:00* Test Item Value Reference Range Interpretation Comments SODIUM (test code = NA) 139 mmol/L 136-145 N POTASSIUM (test code = K) 4.5 mmol/L 3.5-5.1 N CHLORIDE (test code = CL) 101.0 mmol/L 98-107 N CARBON DIOXIDE (test code = CO2) 29.0 mmol/L 21-32 N ANION GAP (test code = GAP) 13.5 10-20 N GLUCOSE (test code = GLU) 220 mg/dL 74-106 H BLOOD UREA NITROGEN (test code = BUN) 44 mg/dL 7-18 H GLOMERULAR FILTRATION RATE (test code = GFR) 7 mL/min >=60 Estimated GFR by using Modified MDRD formula.Chronic kidney disease is defined as either kidney damageor GFR <60 mL/min/1.73 m2 for >3 months. CREATININE (test code = CREAT) 7.90 mg/dL 0.7-1.3 H BUN/CREATININE RATIO (test code = BUN/CREA) 5.6 10-20 L TOTAL PROTEIN (test code = PROT) 6.4 gram/dL 6.4-8.2 N ALBUMIN (test code = ALB) 2.7 g/dL 3.4-5.0 L GLOBULIN (test code = GLOB) 3.7 gram/dL 2.7-4.2 N ALBUMIN/GLOBULIN RATIO (test code = A/G) 0.7 0.75-1.50 L CALCIUM (test code = CA) 8.9 mg/dL 8.5-10.1 N BILIRUBIN TOTAL (test code = BILT) 0.40 mg/dL 0.0-1.0 N SGOT/AST (test code = AST) 29 IUnit/L 15-37 N SGPT/ALT (test code = ALT) 19 IUnit/L 12-78 N ALKALINE PHOSPHATASE TOTAL (test code = ALKP) 62 IUnit/L 45-117 N Note change in reference range due to change in reagent. COMPREHENSIVE METABOLIC [id number] 13:01:00* Test Item Value Reference Range Interpretation Comments SODIUM (test code = NA) 139 mmol/L 136-145 N POTASSIUM (test code = K) 4.5 mmol/L 3.5-5.1 N CHLORIDE (test code = CL) 101.0 mmol/L 98-107 N CARBON DIOXIDE (test code = CO2) mmol/L 21-32 ANION GAP (test code = GAP) 10-20 GLUCOSE (test code = GLU) mg/dL 74-106 BLOOD UREA NITROGEN (test code = BUN) mg/dL 7-18 GLOMERULAR FILTRATION RATE (test code = GFR) mL/min >=60 CREATININE (test code = CREAT) mg/dL 0.7-1.3 BUN/CREATININE RATIO (test code = BUN/CREA) 10-20 TOTAL PROTEIN (test code = PROT) gram/dL 6.4-8.2 ALBUMIN (test code = ALB) g/dL 3.4-5.0 GLOBULIN (test code = GLOB) gram/dL 2.7-4.2 ALBUMIN/GLOBULIN RATIO (test code = A/G) 0.75-1.50 CALCIUM (test code = CA) mg/dL 8.5-10.1 BILIRUBIN TOTAL (test code = BILT) mg/dL 0.0-1.0 SGOT/AST (test code = AST) IUnit/L 15-37 SGPT/ALT (test code = ALT) IUnit/L 12-78 ALKALINE PHOSPHATASE TOTAL (test code = ALKP) IUnit/L 45-117 [id number] 09:33:00* Test Item Value Reference Range Interpretation Comments GLUBED (test code = GLUBED) 133 mg/dL 74-106 H Performed by certified cream separator operator at [facility] [id number] 09:33:00* Test Item Value Reference Range Interpretation Comments GLUBED (test code = GLUBED) 141 mg/dL 74-106 H Performed by certified cream separator operator at [facility] BASIC METABOLIC [id number] 09:22:00* Test Item Value Reference Range Interpretation Comments SODIUM (test code = NA) 140 mmol/L 136-145 N POTASSIUM (test code = K) 4.3 mmol/L 3.5-5.1 N CHLORIDE (test code = CL) 103.0 mmol/L 98-107 N CARBON DIOXIDE (test code = CO2) 28.0 mmol/L 21-32 N ANION GAP (test code = GAP) 13.3 10-20 N GLUCOSE (test code = GLU) 138 mg/dL 74-106 H BLOOD UREA NITROGEN (test code = BUN) 38 mg/dL 7-18 H GLOMERULAR FILTRATION RATE (test code = GFR) 7 mL/min >=60 Estimated GFR by using Modified MDRD formula.Chronic kidney disease is defined as either kidney damageor GFR <60 mL/min/1.73 m2 for >3 months. CREATININE (test code = CREAT) 7.60 mg/dL 0.7-1.3 H BUN/CREATININE RATIO (test code = BUN/CREA) 5.0 10-20 L CALCIUM (test code = CA) 8.8 mg/dL 8.5-10.1 N PROTHROMBIN [id number] 09:14:00* Test Item Value Reference Range Interpretation Comments PROTHROMBIN TIME PATIENT (test code = PTP) 26.3 seconds 9.0-14.0 H INTERNATIONAL NORMAL RATIO (test code = INR) 2.2 0.8-1.2 H The therapeutic range for oral anticoagulant therapy formost indications is an international normalized ratio (INR)of between 2.0 and 3.0. The recommended therapeutic INRrange for various clinical situations is listed below: Clinical Situation INR range Pulmonary e mbolism treatment (2.0-3.0)Venous thrombosis treatmentVenous thrombosis prophylaxis (high risk surgery)Prevention of systemic embolism from: Acute myocardial infarction Valvular heart disease Atrial fibrillation Mechanical prosthetic heart valves (2.5-3.5) IS PATIENT ON ANTICOAGULANTS? YLIST ANTICOAGULANTS COUMADIN- XR CHEST 1 V 2019-01-18 08:05:00 FAX: Lex Gao [place]: B St: ADM FAX: Wellington Hercules MD [phone] Name: ARY ALEJO [facility] : 1935 Age/S: 83/M [address] Unit #: [id number] Loc: [place] [address] Phys: Lex Gao Acct: [id number] Dis Date: Status: ADM IN PHONE #: [phone] Exam Date: 01/18/2019 0750 FAX #: [phone] Reason: INTUBATED PATIENT EXAMS: CPT CODE: [id number] XR CHEST 1 V [id number] REASON FOR EXAM: INTUBATED PATIENT EXAM ORDER DATE: 01/18/2019 12:00 AM Ordering M.Zehra.: KAREN Mclean PROCEDURE: - XR CHEST 1 V COMPARISON: 01/17/2019 FINDINGS: Portable AP frontal view of the chest obtained at 7:50 AM shows dense airspace opacity at the bases. The heart size is minimally enlarged. Pulmonary vasculatures are minimally congested. Stable appearance of the ET tube, OG tube, left subclavian central line and right IJ dialysis catheter. IMPRESSION: Persistent dense airspace opacity of the bases suggestive of atelectasis or consolidation with mild bilateral pleural effusions Electronically Signed by Jerry Brar on 01/18 at 0805 Reported and signed by: Tavares Brar M.D. CC: Lex Gao; Wellington Pace MD Techn ologist: Moiz ESPANA) Trnscrd Date/[place] e/By: 01/18/2019 (0805) : By: Marcy Orig Print D/T: S: 01/18/2019 (0808) PAGE 1 Signed Report [id number] 07:57:00* Test Item Value Reference Range Interpretation Comments GLUBED (test code = GLUBED) 171 mg/dL 74-106 H Performed by certified cream separator operator at [facility] [id number] 07:57:00* Test Item Value Reference Range Interpretation Comments GLUBED (test code = GLUBED) 224 mg/dL 74-106 H Performed by certified cream separator operator at [facility] [id number] 07:57:00* Test Item Value Reference Range Interpretation Comments GLUBED (test code = GLUBED) 264 mg/dL 74-106 H Performed by certified cream separator operator at [facility] [id number] 07:57:00* Test Item Value Reference Range Interpretation Comments GLUBED (test code = GLUBED) 256 mg/dL 74-106 H Performed by certified cream separator operator at [facility] [id number] 07:57:00* Test Item Value Reference Range Interpretation Comments GLUBED (test code = GLUBED) 262 mg/dL 74-106 H Performed by certified cream separator operator at [facility] [id number] 07:57:00* Test Item Value Reference Range Interpretation Comments GLUBED (test code = GLUBED) 350 mg/dL 74-106 H Performed by certified cream separator operator at [facility] BASIC METABOLIC [id number] 04:35:00* Test Item Value Reference Range Interpretation Comments SODIUM (test code = NA) 140 mmol/L 136-145 N POTASSIUM (test code = K) 4.3 mmol/L 3.5-5.1 N CHLORIDE (test code = CL) 102.0 mmol/L 98-107 N CARBON DIOXIDE (test code = CO2) 27.0 mmol/L 21-32 N ANION GAP (test code = GAP) 15.3 10-20 N GLUCOSE (test code = GLU) 222 mg/dL 74-106 H BLOOD UREA NITROGEN (test code = BUN) 36 mg/dL 7-18 H GLOMERULAR FILTRATION RATE (test code = GFR) 7 mL/min >=60 Estimated GFR by using Modified MDRD formula.Chronic kidney disease is defined as either kidney damageor GFR <60 mL/min/1.73 m2 for >3 months. CREATININE (test code = CREAT) 7.40 mg/dL 0.7-1.3 H BUN/CREATININE RATIO (test code = BUN/CREA) 4.9 10-20 L CALCIUM (test code = CA) 8.8 mg/dL 8.5-10.1 N [id number] 04:35:00* Test Item Value Reference Range Interpretation Comments PHOSPHORUS (test code = PHOS) 5.3 mg/dL 2.5-4.9 H [id number] 04:35:00* Test Item Value Reference Range Interpretation Comments MAGNESIUM (test code = MAG) 1.9 mg/dL 1.8-2.4 N CALCIUM [id number] 04:35:00* Test Item Value Reference Range Interpretation Comments CALCIUM IONIZED (test code = PAUL) 1.18 mmol/L 1.12-1.32 N CBC W/MANUAL [id number] 04:33:00* Test Item Value Reference Range Interpretation Comments WHITE BLOOD CELL (test code = WBC) 15.6 K/mm3 4.5-12.5 H RED BLOOD CELL (test code = RBC) 2.97 mill/mm3 4.0-5.8 L HEMOGLOBIN (test code = HGB) 9.0 gram/dL 13.0-17.5 L HEMATOCRIT (test code = HCT) 29.5 % 42.0-52.0 L MEAN CELL VOLUME (test code = MCV) 99.3 fL 80-98 H MEAN CELL HGB (test code = MCH) 30.3 picogram 27.0-33.0 N MEAN CELL HGB CONCETRATION (test code = MCHC) 30.5 gram/dL 33.0-36. 0 L RED CELL DISTRIBUTION WIDTH (test code = RDW) 15.8 % 11.6-16. 2 N RED CELL DISTRIBUTION WIDTH SD (test code = RDW-SD) 56.2 fL 37 .0-51.0 H PLATELET COUNT (test code = PLT) 175 K/mm3 150-450 N MEAN PLATELET VOLUME (test code = MPV) 9.4 fL 6.7-11.0 N IMMATURE GRANULOCYTE % (test code = IG%) 1.3 % 0.0-5.0 N NUCLEATED RBC % (test code = NRBC%) 0.2 % 0-0 H NEUTROPHIL # (test code = NT#) 13.34 K/mm3 1.8-7.7 H IMMATURE GRANULOCYTE # (test code = IG#) 0.21 x10 3/uL 0-0.03 H LYMPHOCYTE # (test code = LY#) 0.84 K/mm3 1.0-5.0 L MONOCYTE # (test code = MO#) 1.10 K/mm3 0-0.8 H EOSINOPHIL # (test code = EO#) 0.04 K/mm3 0.0-0.5 N BASOPHIL # (test code = BA#) 0.09 K/mm3 0.0-0.2 N NUCLEATED RBC # (test code = NRBC#) 0.03 K/mm3 0.0-0.1 N MANUAL DIFF REQUIRED (test code = MDIFF) YES STAIN ACCEPTABILITY (test code = STN ACCEPTABLE) STAIN ACCEPTABLE TOTAL CELLS COUNTED (test code = TCC) 113 #CELLS SEGMENTED NEUTROPHILS (test code = SEG) 72.6 % 39-69 H BAND NEUTROPHIL (test code = BAND) 19.5 % 0-10 H LYMPHOCYTE (test code = LYMPH) 4.4 % 25-55 L REACTIVE LYMPH (test code = RELYMPH) 0 % MONOCYTE (test code = MON) 3.5 % 0-10 N EOSINOPHIL (test code = EOS) 0 % 0.0-5.0 N BASOPHIL (test code = BASO) 0 % 0-1.0 N METAMYELOCYTE (test code = META) 0 % 0-0 N MYELOCYTE (test code = MYELO) 0 % 0.0-0.0 N PROMYELOCYTE (test code = PROM) 0 % 0-0 N POLYCHROMASIA (test code = POLC) 2+ HYPOCHROMIA (test code = HYPO) 1+ BASOPHILIC STIPPLING (test code = STP) 1+ ANISOCYTOSIS (test code = ANISO) 1+ MACROCYTOSIS (test code = MACR) 1+ PLATELET ESTIMATE (test code = PLTEST) ADEQUATE PLATELET MORPHOLOGY (test code = PLTMORPH) NORMAL IMMATURE FORMS (test code = IMMAT) 0 % 0-0 N BASIC METABOLIC [id number] 04:32:00* Test Item Value Reference Range Interpretation Comments SODIUM (test code = NA) 140 mmol/L 136-145 N POTASSIUM (test code = K) 4.3 mmol/L 3.5-5.1 N CHLORIDE (test code = CL) 102.0 mmol/L 98-107 N CARBON DIOXIDE (test code = CO2) mmol/L 21-32 ANION GAP (test code = GAP) 10-20 GLUCOSE (test code = GLU) mg/dL 74-106 BLOOD UREA NITROGEN (test code = BUN) mg/dL 7-18 GLOMERULAR FILTRATION RATE (test code = GFR) mL/min >=60 CREATININE (test code = CREAT) mg/dL 0.7-1.3 BUN/CREATININE RATIO (test code = BUN/CREA) 10-20 CALCIUM (test code = CA) mg/dL 8.5-10.1 [id number] 04:32:00* Test Item Value Reference Range Interpretation Comments PHOSPHORUS (test code = PHOS) mg/dL 2.5-4.9 [id number] 04:32:00* Test Item Value Reference Range Interpretation Comments MAGNESIUM (test code = MAG) mg/dL 1.8-2.4 CALCIUM [id number] 04:32:00* Test Item Value Reference Range Interpretation Comments CALCIUM IONIZED (test code = PAUL) 1.18 mmol/L 1.12-1.32 N BASIC METABOLIC [id number] 04:24:00* Test Item Value Reference Range Interpretation Comments SODIUM (test code = NA) 140 mmol/L 136-145 N POTASSIUM (test code = K) 4.3 mmol/L 3.5-5.1 N CHLORIDE (test code = CL) 102.0 mmol/L 98-107 N CARBON DIOXIDE (test code = CO2) mmol/L 21-32 ANION GAP (test code = GAP) 10-20 GLUCOSE (test code = GLU) mg/dL 74-106 BLOOD UREA NITROGEN (test code = BUN) mg/dL 7-18 GLOMERULAR FILTRATION RATE (test code = GFR) mL/min >=60 CREATININE (test code = CREAT) mg/dL 0.7-1.3 BUN/CREATININE RATIO (test code = BUN/CREA) 10-20 CALCIUM (test code = CA) mg/dL 8.5-10.1 [id number] 04:24:00* Test Item Value Reference Range Interpretation Comments PHOSPHORUS (test code = PHOS) mg/dL 2.5-4.9 [id number] 04:24:00* Test Item Value Reference Range Interpretation Comments MAGNESIUM (test code = MAG) mg/dL 1.8-2.4 CALCIUM [id number] 04:24:00* Test Item Value Reference Range Interpretation Comments CALCIUM IONIZED (test code = PAUL) mmol/L 1.12-1.32 CBC W/MANUAL [id number] 04:12:00* Test Item Value Reference Range Interpretation Comments WHITE BLOOD CELL (test code = WBC) 15.6 K/mm3 4.5-12.5 H RED BLOOD CELL (test code = RBC) 2.97 mill/mm3 4.0-5.8 L HEMOGLOBIN (test code = HGB) 9.0 gram/dL 13.0-17.5 L HEMATOCRIT (test code = HCT) 29.5 % 42.0-52.0 L MEAN CELL VOLUME (test code = MCV) 99.3 fL 80-98 H MEAN CELL HGB (test code = MCH) 30.3 picogram 27.0-33.0 N MEAN CELL HGB CONCETRATION (test code = MCHC) 30.5 gram/dL 33.0-36. 0 L RED CELL DISTRIBUTION WIDTH (test code = RDW) 15.8 % 11.6-16. 2 N RED CELL DISTRIBUTION WIDTH SD (test code = RDW-SD) 56.2 fL 37 .0-51.0 H PLATELET COUNT (test code = PLT) 175 K/mm3 150-450 N MEAN PLATELET VOLUME (test code = MPV) 9.4 fL 6.7-11.0 N IMMATURE GRANULOCYTE % (test code = IG%) 1.3 % 0.0-5.0 N NUCLEATED RBC % (test code = NRBC%) 0.2 % 0-0 H NEUTROPHIL # (test code = NT#) 13.34 K/mm3 1.8-7.7 H IMMATURE GRANULOCYTE # (test code = IG#) 0.21 x10 3/uL 0-0.03 H LYMPHOCYTE # (test code = LY#) 0.84 K/mm3 1.0-5.0 L MONOCYTE # (test code = MO#) 1.10 K/mm3 0-0.8 H EOSINOPHIL # (test code = EO#) 0.04 K/mm3 0.0-0.5 N BASOPHIL # (test code = BA#) 0.09 K/mm3 0.0-0.2 N NUCLEATED RBC # (test code = NRBC#) 0.03 K/mm3 0.0-0.1 N MANUAL DIFF REQUIRED (test code = MDIFF) YES STAIN ACCEPTABILITY (test code = STN ACCEPTABLE) TOTAL CELLS COUNTED (test code = TCC) #CELLS SEGMENTED NEUTROPHILS (test code = SEG) % 39-69 LYMPHOCYTE (test code = LYMPH) % 25-55 MONOCYTE (test code = MON) % 0-10 MORPHOLOGY COMMENT (test code = MOC) PLATELET ESTIMATE (test code = PLTEST) PLATELET MORPHOLOGY (test code = PLTMORPH) CBC W/MANUAL [id number] 04:09:00* Test Item Value Reference Range Interpretation Comments WHITE BLOOD CELL (test code = WBC) 15.6 K/mm3 4.5-12.5 H RED BLOOD CELL (test code = RBC) 2.97 mill/mm3 4.0-5.8 L HEMOGLOBIN (test code = HGB) 9.0 gram/dL 13.0-17.5 L HEMATOCRIT (test code = HCT) 29.5 % 42.0-52.0 L MEAN CELL VOLUME (test code = MCV) 99.3 fL 80-98 H MEAN CELL HGB (test code = MCH) 30.3 picogram 27.0-33.0 N MEAN CELL HGB CONCETRATION (test code = MCHC) 30.5 gram/dL 33.0-36. 0 L RED CELL DISTRIBUTION WIDTH (test code = RDW) 15.8 % 11.6-16. 2 N RED CELL DISTRIBUTION WIDTH SD (test code = RDW-SD) 56.2 fL 37 .0-51.0 H PLATELET COUNT (test code = PLT) 175 K/mm3 150-450 N MEAN PLATELET VOLUME (test code = MPV) 9.4 fL 6.7-11.0 N IMMATURE GRANULOCYTE % (test code = IG%) 1.3 % 0.0-5.0 N NUCLEATED RBC % (test code = NRBC%) 0.2 % 0-0 H NEUTROPHIL # (test code = NT#) 13.34 K/mm3 1.8-7.7 H IMMATURE GRANULOCYTE # (test code = IG#) 0.21 x10 3/uL 0-0.03 H LYMPHOCYTE # (test code = LY#) 0.84 K/mm3 1.0-5.0 L MONOCYTE # (test code = MO#) 1.10 K/mm3 0-0.8 H EOSINOPHIL # (test code = EO#) 0.04 K/mm3 0.0-0.5 N BASOPHIL # (test code = BA#) 0.09 K/mm3 0.0-0.2 N NUCLEATED RBC # (test code = NRBC#) 0.03 K/mm3 0.0-0.1 N MANUAL DIFF REQUIRED (test code = MDIFF) YES STAIN ACCEPTABILITY (test code = STN ACCEPTABLE) TOTAL CELLS COUNTED (test code = TCC) #CELLS SEGMENTED NEUTROPHILS (test code = SEG) % 39-69 LYMPHOCYTE (test code = LYMPH) % 25-55 MONOCYTE (test code = MON) % 0-10 EOSINOPHIL (test code = EOS) % 0.0-5.0 CABOT RINGS (test code = CAB) MORPHOLOGY COMMENT (test code = MOC) PLATELET ESTIMATE (test code = PLTEST) PLATELET MORPHOLOGY (test code = PLTMORPH) CBC W/MANUAL [id number] 04:09:00* Test Item Value Reference Range Interpretation Comments WHITE BLOOD CELL (test code = WBC) 15.6 K/mm3 4.5-12.5 H RED BLOOD CELL (test code = RBC) 2.97 mill/mm3 4.0-5.8 L HEMOGLOBIN (test code = HGB) 9.0 gram/dL 13.0-17.5 L HEMATOCRIT (test code = HCT) 29.5 % 42.0-52.0 L MEAN CELL VOLUME (test code = MCV) 99.3 fL 80-98 H MEAN CELL HGB (test code = MCH) 30.3 picogram 27.0-33.0 N MEAN CELL HGB CONCETRATION (test code = MCHC) 30.5 gram/dL 33.0-36. 0 L RED CELL DISTRIBUTION WIDTH (test code = RDW) 15.8 % 11.6-16. 2 N RED CELL DISTRIBUTION WIDTH SD (test code = RDW-SD) 56.2 fL 37 .0-51.0 H PLATELET COUNT (test code = PLT) 175 K/mm3 150-450 N MEAN PLATELET VOLUME (test code = MPV) 9.4 fL 6.7-11.0 N IMMATURE GRANULOCYTE % (test code = IG%) 1.3 % 0.0-5.0 N NUCLEATED RBC % (test code = NRBC%) 0.2 % 0-0 H NEUTROPHIL # (test code = NT#) 13.34 K/mm3 1.8-7.7 H IMMATURE GRANULOCYTE # (test code = IG#) 0.21 x10 3/uL 0-0.03 H LYMPHOCYTE # (test code = LY#) 0.84 K/mm3 1.0-5.0 L MONOCYTE # (test code = MO#) 1.10 K/mm3 0-0.8 H EOSINOPHIL # (test code = EO#) 0.04 K/mm3 0.0-0.5 N BASOPHIL # (test code = BA#) 0.09 K/mm3 0.0-0.2 N NUCLEATED RBC # (test code = NRBC#) 0.03 K/mm3 0.0-0.1 N MANUAL DIFF REQUIRED (test code = MDIFF) YES STAIN ACCEPTABILITY (test code = STN ACCEPTABLE) TOTAL CELLS COUNTED (test code = TCC) #CELLS SEGMENTED NEUTROPHILS (test code = SEG) % 39-69 LYMPHOCYTE (test code = LYMPH) % 25-55 MONOCYTE (test code = MON) % 0-10 EOSINOPHIL (test code = EOS) % 0.0-5.0 CABOT RINGS (test code = CAB) MORPHOLOGY COMMENT (test code = MOC) PLATELET ESTIMATE (test code = PLTEST) PLATELET MORPHOLOGY (test code = PLTMORPH) CBC W/MANUAL [id number] 04:09:00* Test Item Value Reference Range Interpretation Comments WHITE BLOOD CELL (test code = WBC) 15.6 K/mm3 4.5-12.5 H RED BLOOD CELL (test code = RBC) 2.97 mill/mm3 4.0-5.8 L HEMOGLOBIN (test code = HGB) 9.0 gram/dL 13.0-17.5 L HEMATOCRIT (test code = HCT) 29.5 % 42.0-52.0 L MEAN CELL VOLUME (test code = MCV) 99.3 fL 80-98 H MEAN CELL HGB (test code = MCH) 30.3 picogram 27.0-33.0 N MEAN CELL HGB CONCETRATION (test code = MCHC) 30.5 gram/dL 33.0-36. 0 L RED CELL DISTRIBUTION WIDTH (test code = RDW) 15.8 % 11.6-16. 2 N RED CELL DISTRIBUTION WIDTH SD (test code = RDW-SD) 56.2 fL 37 .0-51.0 H PLATELET COUNT (test code = PLT) 175 K/mm3 150-450 N MEAN PLATELET VOLUME (test code = MPV) 9.4 fL 6.7-11.0 N IMMATURE GRANULOCYTE % (test code = IG%) 1.3 % 0.0-5.0 N NUCLEATED RBC % (test code = NRBC%) 0.2 % 0-0 H NEUTROPHIL # (test code = NT#) 13.34 K/mm3 1.8-7.7 H IMMATURE GRANULOCYTE # (test code = IG#) 0.21 x10 3/uL 0-0.03 H LYMPHOCYTE # (test code = LY#) 0.84 K/mm3 1.0-5.0 L MONOCYTE # (test code = MO#) 1.10 K/mm3 0-0.8 H EOSINOPHIL # (test code = EO#) 0.04 K/mm3 0.0-0.5 N BASOPHIL # (test code = BA#) 0.09 K/mm3 0.0-0.2 N NUCLEATED RBC # (test code = NRBC#) 0.03 K/mm3 0.0-0.1 N MANUAL DIFF REQUIRED (test code = MDIFF) YES STAIN ACCEPTABILITY (test code = STN ACCEPTABLE) TOTAL CELLS COUNTED (test code = TCC) #CELLS SEGMENTED NEUTROPHILS (test code = SEG) % 39-69 LYMPHOCYTE (test code = LYMPH) % 25-55 MONOCYTE (test code = MON) % 0-10 EOSINOPHIL (test code = EOS) % 0.0-5.0 MORPHOLOGY COMMENT (test code = MOC) PLATELET ESTIMATE (test code = PLTEST) PLATELET MORPHOLOGY (test code = PLTMORPH) CBC W/MANUAL [id number] 04:09:00* Test Item Value Reference Range Interpretation Comments WHITE BLOOD CELL (test code = WBC) 15.6 K/mm3 4.5-12.5 H RED BLOOD CELL (test code = RBC) 2.97 mill/mm3 4.0-5.8 L HEMOGLOBIN (test code = HGB) 9.0 gram/dL 13.0-17.5 L HEMATOCRIT (test code = HCT) 29.5 % 42.0-52.0 L MEAN CELL VOLUME (test code = MCV) 99.3 fL 80-98 H MEAN CELL HGB (test code = MCH) 30.3 picogram 27.0-33.0 N MEAN CELL HGB CONCETRATION (test code = MCHC) 30.5 gram/dL 33.0-36. 0 L RED CELL DISTRIBUTION WIDTH (test code = RDW) 15.8 % 11.6-16. 2 N RED CELL DISTRIBUTION WIDTH SD (test code = RDW-SD) 56.2 fL 37 .0-51.0 H PLATELET COUNT (test code = PLT) 175 K/mm3 150-450 N MEAN PLATELET VOLUME (test code = MPV) 9.4 fL 6.7-11.0 N IMMATURE GRANULOCYTE % (test code = IG%) 1.3 % 0.0-5.0 N NUCLEATED RBC % (test code = NRBC%) 0.2 % 0-0 H NEUTROPHIL # (test code = NT#) 13.34 K/mm3 1.8-7.7 H IMMATURE GRANULOCYTE # (test code = IG#) 0.21 x10 3/uL 0-0.03 H LYMPHOCYTE # (test code = LY#) 0.84 K/mm3 1.0-5.0 L MONOCYTE # (test code = MO#) 1.10 K/mm3 0-0.8 H EOSINOPHIL # (test code = EO#) 0.04 K/mm3 0.0-0.5 N BASOPHIL # (test code = BA#) 0.09 K/mm3 0.0-0.2 N NUCLEATED RBC # (test code = NRBC#) 0.03 K/mm3 0.0-0.1 N MANUAL DIFF REQUIRED (test code = MDIFF) YES STAIN ACCEPTABILITY (test code = STN ACCEPTABLE) TOTAL CELLS COUNTED (test code = TCC) #CELLS SEGMENTED NEUTROPHILS (test code = SEG) % 39-69 LYMPHOCYTE (test code = LYMPH) % 25-55 MONOCYTE (test code = MON) % 0-10 EOSINOPHIL (test code = EOS) % 0.0-5.0 CABOT RINGS (test code = CAB) MORPHOLOGY COMMENT (test code = MOC) PLATELET ESTIMATE (test code = PLTEST) PLATELET MORPHOLOGY (test code = PLTMORPH) LACTIC [id number] 00:35:00* Test Item Value Reference Range Interpretation Comments LACTIC ACID (test code = LACT) 2.3 mmol/L 0.4-1.9 HH Results called to [id number] by V.LAB.TABATHA 01/18/19 0035Critical results verified and read back by Nurse? Y LACTIC [id number] 21:30:00* Test Item Value Reference Range Interpretation Comments LACTIC ACID (test code = LACT) 3.1 mmol/L 0.4-1.9 HH Results called to [id number] by V.LAB.LT 01/17/199Critical results verified and read back by Nurse? Y BASIC METABOLIC [id number] 21:30:00* Test Item Value Reference Range Interpretation Comments SODIUM (test code = NA) 138 mmol/L 136-145 N POTASSIUM (test code = K) 4.2 mmol/L 3.5-5.1 RE SULT VERIFIED BY REPEAT ANALYSIS CHLORIDE (test code = CL) 100.0 mmol/L 98-107 N CARBON DIOXIDE (test code = CO2) 26.0 mmol/L 21-32 N ANION GAP (test code = GAP) 16.2 10-20 N GLUCOSE (test code = GLU) 290 mg/dL 74-106 H BLOOD UREA NITROGEN (test code = BUN) 31 mg/dL 7-18 H GLOMERULAR FILTRATION RATE (test code = GFR) 9 mL/min >=60 Estimated GFR by using Modified MDRD formula.Chronic kidney disease is defined as either kidney damageor GFR <60 mL/min/1.73 m2 for >3 months. CREATININE (test code = CREAT) 6.30 mg/dL 0.7-1.3 H BUN/CREATININE RATIO (test code = BUN/CREA) 5.0 10-20 L CALCIUM (test code = CA) 8.6 mg/dL 8.5-10.1 N [id number] 21:30:00* Test Item Value Reference Range Interpretation Comments PHOSPHORUS (test code = PHOS) 4.3 mg/dL 2.5-4.9 N [id number] 21:30:00* Test Item Value Reference Range Interpretation Comments MAGNESIUM (test code = MAG) 1.8 mg/dL 1.8-2.4 N [id number] 19:48:00* Test Item Value Reference Range Interpretation Comments GLUBED (test code = GLUBED) 333 mg/dL 74-106 H Performed by certified cream separator operator at [facility] [id number] 19:48:00* Test Item Value Reference Range Interpretation Comments GLUBED (test code = GLUBED) 361 mg/dL 74-106 H Performed by certified cream separator operator at [facility] [id number] 19:48:00* Test Item Value Reference Range Interpretation Comments GLUBED (test code = GLUBED) 410 mg/dL 74-106 H Performed by certified cream separator operator at [facility] [id number] 17:32:00* Test Item Value Reference Range Interpretation Comments POTASSIUM (test code = K) 5.6 mmol/L 3.5-5.1 H URINALYSIS [id number] 16:46:00* Test Item Value Reference Range Interpretation Comments UA COLOR (test code = COLU) YELLOW YELLOW UA APPEARANCE (test code = APPU) Cloudy CLEAR A UA GLUCOSE DIPSTICK (test code = DGLUU) 70 (1+) mg/dL NEGATIVE A UA BILIRUBIN DIPSTICK (test code = BILU) NEGATIVE mg/dL NEGATIVE UA KETONE DIPSTICK (test code = KETU) NEGATIVE mg/dL NEGATIVE UA SPECIFIC GRAVITY (test code = SGU) 1.020 1.001-1.035 UA BLOOD DIPSTICK (test code = CHRISTIE) 0.5 mg/dL (2+) mg/dL NEGATIVE A UA PH DIPSTICK (test code = KLEBER) 5.5 5.0-8.0 UA PROTEIN DIPSTICK (test code = PROU) 200 (2+) mg/dL NEGATIVE A UA UROBILINIOGEN DIPSTICK (test code = URO) Normal mg/dL NEGATIVE UA NITRITE DIPSTICK (test code = JAMMIE) NEGATIVE NEGATIVE UA LEUKOCYTE ESTERASE W REFLEX (test code = LEUUR) 75 Nialy/uL (1+) Nilay/uL NEGATIVE A UA WBC (test code = WBCU) 21-50 per HPF 0-5 A UA RBC (test code = RBCU) 21-50 #/HPF 0-5 UA EPITHELIAL CELLS (test code = EPIU) FEW per HPF FEW UA BACTERIA (test code = BACU) FEW #/HPF NONE A UA HYALINE CAST (test code = HYALU) 6-10 #/LPF 0-5 A UA AMORPHOUS SEDIMENT (test code = AMORU) FEW #/LPF Urine Source? CatheterURINALYSIS [id number] 16:19:00* Test Item Value Reference Range Interpretation Comments UA COLOR (test code = COLU) YELLOW YELLOW UA APPEARANCE (test code = APPU) Cloudy CLEAR A UA GLUCOSE DIPSTICK (test code = DGLUU) 70 (1+) mg/dL NEGATIVE A UA BILIRUBIN DIPSTICK (test code = BILU) NEGATIVE mg/dL NEGATIVE UA KETONE DIPSTICK (test code = KETU) NEGATIVE mg/dL NEGATIVE UA SPECIFIC GRAVITY (test code = SGU) 1.020 1.001-1.035 UA BLOOD DIPSTICK (test code = CHRISTIE) 0.5 mg/dL (2+) mg/dL NEGATIVE A UA PH DIPSTICK (test code = KLEBER) 5.5 5.0-8.0 UA PROTEIN DIPSTICK (test code = PROU) 200 (2+) mg/dL NEGATIVE A UA UROBILINIOGEN DIPSTICK (test code = URO) Normal mg/dL NEGATIVE UA NITRITE DIPSTICK (test code = JAMMIE) NEGATIVE NEGATIVE UA LEUKOCYTE ESTERASE W REFLEX (test code = LEUUR) 75 Nilay/uL (1+) Nilay/uL NEGATIVE A UA WBC (test code = WBCU) per HPF 0-5 UA RBC (test code = RBCU) per HPF 0-5 UA EPITHELIAL CELLS (test code = EPIU) per HPF Few UA BACTERIA (test code = BACU) per HPF NONE Urine Source? Catheter- US GUIDANCE VASC [id number] 13:58:00 Name: ARY ALEJO [facility] : 1935 Age/S: 83 / M [address] [facility] Unit #: [id number] Loc: [place] [address] Phys: Maxime Pace MD Acct: [id number] Di s Date: Status: ADM IN PHONE #: Exam Date: 01/17/2019 1241 FAX #: Reason: EXAMS: CPT CODE: [id number] US GUIDANCE VASC ACCESS [id number] Fluoro Time: DAP (Gy m2): Air Kerma (mGy): REASON FOR EXAM: Sepsis, hypot ensive, on Levophed Exam Order Date: 01/17/2019 12:20 PM Att ending M.D.: Wellington Pace MD PROCEDURE: Ultrasound guided tripl e-lumen central line placement FINDINGS: Prior to the proce dure, informed consent was obtained after risks and benefits of the proced ure were explained to the patient's family. The family agreed and wanted to proceed. The equipment was brought to patient's bedside. The left neck and chest wall were prepped and draped in the usual fashion. The patient has an existing right IJ tunneled dialysis catheter. Ultrasound showed no evidence of patent vein in the left neck. 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 All elements of maximal sterile barrier technique were followed. Ultrasound showed patency of the left subclavian vein. No thrombus ident ified, the vein is patent. Images of the vein were submitted to PACS. Unde r real time ultrasound guidance, a micropuncture needle was used to access the vein. A triple-lumen central line was inserted with the tip positioned within the SVC (confirmed by follow-up chest x-ray). The catheter was galeano tured to the subcutaneous tissue and is ready for use. MEDIC ATIONS: None. COMPLICATIONS: None. Blood Loss: less than 5cc IMPRESSION: left subclavian vein triple-lumen central l ine is ready for use. at 1222 Reported and signed by: Majro Padron CC: Wellington Pace MD Technolog ist: Dakota Orozco RT(R) Trnscb Date/Time: (5655) t.SDR.VTL Orig Print D/T: S: 01/17/2019 ( 2048) PAGE 1 Signed Report - XR CHEST 1 [id number] 13:13:00 FAX: Wellington Hercules MD [phone] [place]: [address] St: ADM Name: Anabel ARY PABON [facility] : [birth year] Age/S: 83/M [address] [facility] Unit #: [id number] Loc: [place] [address] Phys: Tavares Brar MD Acct: [id number] Dis Date: Status: ADM IN PHONE #: [phone] Exam Date: 01/17/2019 1243 FAX #: [phone] Reason: POST LINE PLACEMENT EXAMS: CPT CODE: [id number] XR CHEST 1 V [id number] REASON FOR EXAM: POST LINE PLACEMENT Exam Order Date: 01/17/2019 12:49 PM Bettie trujillo M.D.: Tavares Brar MD PROCEDURE: - XR CHEST 1 V COMPARISON: Frontal chest x-ray earlier today at 2:05 AM FINDINGS: The endotracheal tube, enteric suction tube, and right IJ dialysis catheter are grossly unchanged in position. There is been interval place ment of a left subclavian central line into the SVC. No postprocedure pneu mothorax. There are opacities overlying the mid to lower lungs kenna aterally, worse on the left side with nonvisualization of the left h emidiaphragm, which are unchanged from the prior exam. These opacities may represent any combination of layering effusions, atelectasis, and consoli dations. The cardiac mediastinal silhouette is incompletely visual ized. Generative changes of the spine and other musculoskeletal findings a re stable in appearance. IMPRESSION: Inter vanessa placement of left subclavian central line into the SVC with no postp rocedure pneumothorax. Remaining findings are unchanged. Electronica lly Signed by Richi Godinez MD on 01/17/2019 at 1313 Repor sis and signed by: Richi Godinez MD CC: Wellington Pace MD Technologist: Mylene Cisneros RT(R) Trnscrd Date/Time/By: 01/17/2019 (5928) : By: [email or web address] Orig Print D/T: S: 01/17/2019 (5050) PAGE 1 Signed Report [id number] 11:55:00* Test Item Value Reference Range Interpretation Comments GLUBED (test code = GLUBED) 412 mg/dL 74-106 H Performed by certified cream separator operator at [facility] BASIC METABOLIC [id number] 09:13:00* Test Item Value Reference Range Interpretation Comments SODIUM (test code = NA) 135 mmol/L 136-145 L POTASSIUM (test code = K) 4.9 mmol/L 3.5-5.1 N CHLORIDE (test code = CL) 95.0 mmol/L 98-107 L CARBON DIOXIDE (test code = CO2) 20.0 mmol/L 21-32 L ANION GAP (test code = GAP) 24.9 10-20 H GLUCOSE (test code = GLU) 359 mg/dL 74-106 H BLOOD UREA NITROGEN (test code = BUN) 37 mg/dL 7-18 H GLOMERULAR FILTRATION RATE (test code = GFR) 7 mL/min >=60 Estimated GFR by using Modified MDRD formula.Chronic kidney disease is defined as either kidney damageor GFR <60 mL/min/1.73 m2 for >3 months. CREATININE (test code = CREAT) 7.60 mg/dL 0.7-1.3 H BUN/CREATININE RATIO (test code = BUN/CREA) 4.9 10-20 L CALCIUM (test code = CA) 8.2 mg/dL 8.5-10.1 L [id number] 09:13:00* Test Item Value Reference Range Interpretation Comments PHOSPHORUS (test code = PHOS) 5.0 mg/dL 2.5-4.9 H [id number] 09:13:00* Test Item Value Reference Range Interpretation Comments MAGNESIUM (test code = MAG) 1.7 mg/dL 1.8-2.4 L CALCIUM [id number] 09:13:00* Test Item Value Reference Range Interpretation Comments CALCIUM IONIZED (test code = PAUL) 1.03 mmol/L 1.12-1.32 L AG HEPAT B [id number] 09:10:00* Test Item Value Reference Range Interpretation Comments AG HEPAT B SURF (test code = HBSAG) Nonreactive Index Nonreactive CBC W/MANUAL [id number] 09:09:00* Test Item Value Reference Range Interpretation Comments WHITE BLOOD CELL (test code = WBC) 15.2 K/mm3 4.5-12.5 H RED BLOOD CELL (test code = RBC) 3.44 mill/mm3 4.0-5.8 L HEMOGLOBIN (test code = HGB) 10.4 gram/dL 13.0-17.5 L HEMATOCRIT (test code = HCT) 34.4 % 42.0-52.0 L MEAN CELL VOLUME (test code = MCV) 100.0 fL 80-98 H MEAN CELL HGB (test code = MCH) 30.2 picogram 27.0-33.0 N MEAN CELL HGB CONCETRATION (test code = MCHC) 30.2 gram/dL 33.0-36. 0 L RED CELL DISTRIBUTION WIDTH (test code = RDW) 15.7 % 11.6-16. 2 N RED CELL DISTRIBUTION WIDTH SD (test code = RDW-SD) 55.9 fL 37 .0-51.0 H PLATELET COUNT (test code = PLT) 202 K/mm3 150-450 N MEAN PLATELET VOLUME (test code = MPV) 10.0 fL 6.7-11.0 N IMMATURE GRANULOCYTE % (test code = IG%) 1.0 % 0.0-5.0 N NUCLEATED RBC % (test code = NRBC%) 0.1 % 0-0 H NEUTROPHIL # (test code = NT#) 13.29 K/mm3 1.8-7.7 H IMMATURE GRANULOCYTE # (test code = IG#) 0.15 x10 3/uL 0-0.03 H LYMPHOCYTE # (test code = LY#) 0.55 K/mm3 1.0-5.0 L MONOCYTE # (test code = MO#) 1.11 K/mm3 0-0.8 H EOSINOPHIL # (test code = EO#) 0.02 K/mm3 0.0-0.5 N BASOPHIL # (test code = BA#) 0.05 K/mm3 0.0-0.2 N NUCLEATED RBC # (test code = NRBC#) 0.02 K/mm3 0.0-0.1 N MANUAL DIFF REQUIRED (test code = MDIFF) YES STAIN ACCEPTABILITY (test code = STN ACCEPTABLE) STAIN ACCEPTABLE TOTAL CELLS COUNTED (test code = TCC) 126 #CELLS SEGMENTED NEUTROPHILS (test code = SEG) 52.8 % 39-69 N BAND NEUTROPHIL (test code = BAND) 32.5 % 0-10 H LYMPHOCYTE (test code = LYMPH) 5.6 % 25-55 L REACTIVE LYMPH (test code = RELYMPH) 0 % MONOCYTE (test code = MON) 9.1 % 0-10 N EOSINOPHIL (test code = EOS) 0 % 0.0-5.0 N BASOPHIL (test code = BASO) 0 % 0-1.0 N METAMYELOCYTE (test code = META) 0 % 0-0 N MYELOCYTE (test code = MYELO) 0 % 0.0-0.0 N PROMYELOCYTE (test code = PROM) 0 % 0-0 N HYPOCHROMIA (test code = HYPO) 1+ POIKILOCYTOSIS (test code = POIK) 1+ PLATELET ESTIMATE (test code = PLTEST) ADEQUATE PLATELET MORPHOLOGY (test code = PLTMORPH) NORMAL IMMATURE FORMS (test code = IMMAT) 0 % 0-0 N [id number] 08:32:00* Test Item Value Reference Range Interpretation Comments GLUBED (test code = GLUBED) 392 mg/dL 74-106 H Performed by certified cream separator operator at [facility] BASIC METABOLIC [id number] 08:16:00* Test Item Value Reference Range Interpretation Comments SODIUM (test code = NA) 135 mmol/L 136-145 L POTASSIUM (test code = K) 4.9 mmol/L 3.5-5.1 N CHLORIDE (test code = CL) 95.0 mmol/L 98-107 L CARBON DIOXIDE (test code = CO2) 20.0 mmol/L 21-32 L ANION GAP (test code = GAP) 24.9 10-20 H GLUCOSE (test code = GLU) 359 mg/dL 74-106 H BLOOD UREA NITROGEN (test code = BUN) 37 mg/dL 7-18 H GLOMERULAR FILTRATION RATE (test code = GFR) 7 mL/min >=60 Estimated GFR by using Modified MDRD formula.Chronic kidney disease is defined as either kidney damageor GFR <60 mL/min/1.73 m2 for >3 months. CREATININE (test code = CREAT) 7.60 mg/dL 0.7-1.3 H BUN/CREATININE RATIO (test code = BUN/CREA) 4.9 10-20 L CALCIUM (test code = CA) 8.2 mg/dL 8.5-10.1 L [id number] 08:16:00* Test Item Value Reference Range Interpretation Comments PHOSPHORUS (test code = PHOS) 5.0 mg/dL 2.5-4.9 H [id number] 08:16:00* Test Item Value Reference Range Interpretation Comments MAGNESIUM (test code = MAG) 1.7 mg/dL 1.8-2.4 L CALCIUM [id number] 08:16:00* Test Item Value Reference Range Interpretation Comments CALCIUM IONIZED (test code = PAUL) mmol/L 1.12-1.32 LACTIC [id number] 07:59:00* Test Item Value Reference Range Interpretation Comments LACTIC ACID (test code = LACT) 5.9 mmol/L 0.4-1.9 HH Results called toBOC 6894 by RashawnLABEmperatrizLAKE [facility] 01/17/19 0758Critical results verified and read back by Nurse? Y CBC W/MANUAL [id number] 07:58:00* Test Item Value Reference Range Interpretation Comments WHITE BLOOD CELL (test code = WBC) 15.2 K/mm3 4.5-12.5 H RED BLOOD CELL (test code = RBC) 3.44 mill/mm3 4.0-5.8 L HEMOGLOBIN (test code = HGB) 10.4 gram/dL 13.0-17.5 L HEMATOCRIT (test code = HCT) 34.4 % 42.0-52.0 L MEAN CELL VOLUME (test code = MCV) 100.0 fL 80-98 H MEAN CELL HGB (test code = MCH) 30.2 picogram 27.0-33.0 N MEAN CELL HGB CONCETRATION (test code = MCHC) 30.2 gram/dL 33.0-36. 0 L RED CELL DISTRIBUTION WIDTH (test code = RDW) 15.7 % 11.6-16. 2 N RED CELL DISTRIBUTION WIDTH SD (test code = RDW-SD) 55.9 fL 37 .0-51.0 H PLATELET COUNT (test code = PLT) 202 K/mm3 150-450 N MEAN PLATELET VOLUME (test code = MPV) 10.0 fL 6.7-11.0 N IMMATURE GRANULOCYTE % (test code = IG%) 1.0 % 0.0-5.0 N NUCLEATED RBC % (test code = NRBC%) 0.1 % 0-0 H NEUTROPHIL # (test code = NT#) 13.29 K/mm3 1.8-7.7 H IMMATURE GRANULOCYTE # (test code = IG#) 0.15 x10 3/uL 0-0.03 H LYMPHOCYTE # (test code = LY#) 0.55 K/mm3 1.0-5.0 L MONOCYTE # (test code = MO#) 1.11 K/mm3 0-0.8 H EOSINOPHIL # (test code = EO#) 0.02 K/mm3 0.0-0.5 N BASOPHIL # (test code = BA#) 0.05 K/mm3 0.0-0.2 N NUCLEATED RBC # (test code = NRBC#) 0.02 K/mm3 0.0-0.1 N MANUAL DIFF REQUIRED (test code = MDIFF) YES STAIN ACCEPTABILITY (test code = STN ACCEPTABLE) TOTAL CELLS COUNTED (test code = TCC) #CELLS SEGMENTED NEUTROPHILS (test code = SEG) % 39-69 LYMPHOCYTE (test code = LYMPH) % 25-55 MONOCYTE (test code = MON) % 0-10 EOSINOPHIL (test code = EOS) % 0.0-5.0 CABOT RINGS (test code = CAB) MORPHOLOGY COMMENT (test code = MOC) PLATELET ESTIMATE (test code = PLTEST) PLATELET MORPHOLOGY (test code = PLTMORPH) CBC W/MANUAL [id number] 07:58:00* Test Item Value Reference Range Interpretation Comments WHITE BLOOD CELL (test code = WBC) 15.2 K/mm3 4.5-12.5 H RED BLOOD CELL (test code = RBC) 3.44 mill/mm3 4.0-5.8 L HEMOGLOBIN (test code = HGB) 10.4 gram/dL 13.0-17.5 L HEMATOCRIT (test code = HCT) 34.4 % 42.0-52.0 L MEAN CELL VOLUME (test code = MCV) 100.0 fL 80-98 H MEAN CELL HGB (test code = MCH) 30.2 picogram 27.0-33.0 N MEAN CELL HGB CONCETRATION (test code = MCHC) 30.2 gram/dL 33.0-36. 0 L RED CELL DISTRIBUTION WIDTH (test code = RDW) 15.7 % 11.6-16. 2 N RED CELL DISTRIBUTION WIDTH SD (test code = RDW-SD) 55.9 fL 37 .0-51.0 H PLATELET COUNT (test code = PLT) 202 K/mm3 150-450 N MEAN PLATELET VOLUME (test code = MPV) 10.0 fL 6.7-11.0 N IMMATURE GRANULOCYTE % (test code = IG%) 1.0 % 0.0-5.0 N NUCLEATED RBC % (test code = NRBC%) 0.1 % 0-0 H NEUTROPHIL # (test code = NT#) 13.29 K/mm3 1.8-7.7 H IMMATURE GRANULOCYTE # (test code = IG#) 0.15 x10 3/uL 0-0.03 H LYMPHOCYTE # (test code = LY#) 0.55 K/mm3 1.0-5.0 L MONOCYTE # (test code = MO#) 1.11 K/mm3 0-0.8 H EOSINOPHIL # (test code = EO#) 0.02 K/mm3 0.0-0.5 N BASOPHIL # (test code = BA#) 0.05 K/mm3 0.0-0.2 N NUCLEATED RBC # (test code = NRBC#) 0.02 K/mm3 0.0-0.1 N MANUAL DIFF REQUIRED (test code = MDIFF) YES STAIN ACCEPTABILITY (test code = STN ACCEPTABLE) TOTAL CELLS COUNTED (test code = TCC) #CELLS SEGMENTED NEUTROPHILS (test code = SEG) % 39-69 LYMPHOCYTE (test code = LYMPH) % 25-55 MONOCYTE (test code = MON) % 0-10 EOSINOPHIL (test code = EOS) % 0.0-5.0 CABOT RINGS (test code = CAB) MORPHOLOGY COMMENT (test code = MOC) PLATELET ESTIMATE (test code = PLTEST) PLATELET MORPHOLOGY (test code = PLTMORPH) CBC W/MANUAL [id number] 07:58:00* Test Item Value Reference Range Interpretation Comments WHITE BLOOD CELL (test code = WBC) 15.2 K/mm3 4.5-12.5 H RED BLOOD CELL (test code = RBC) 3.44 mill/mm3 4.0-5.8 L HEMOGLOBIN (test code = HGB) 10.4 gram/dL 13.0-17.5 L HEMATOCRIT (test code = HCT) 34.4 % 42.0-52.0 L MEAN CELL VOLUME (test code = MCV) 100.0 fL 80-98 H MEAN CELL HGB (test code = MCH) 30.2 picogram 27.0-33.0 N MEAN CELL HGB CONCETRATION (test code = MCHC) 30.2 gram/dL 33.0-36. 0 L RED CELL DISTRIBUTION WIDTH (test code = RDW) 15.7 % 11.6-16. 2 N RED CELL DISTRIBUTION WIDTH SD (test code = RDW-SD) 55.9 fL 37 .0-51.0 H PLATELET COUNT (test code = PLT) 202 K/mm3 150-450 N MEAN PLATELET VOLUME (test code = MPV) 10.0 fL 6.7-11.0 N IMMATURE GRANULOCYTE % (test code = IG%) 1.0 % 0.0-5.0 N NUCLEATED RBC % (test code = NRBC%) 0.1 % 0-0 H NEUTROPHIL # (test code = NT#) 13.29 K/mm3 1.8-7.7 H IMMATURE GRANULOCYTE # (test code = IG#) 0.15 x10 3/uL 0-0.03 H LYMPHOCYTE # (test code = LY#) 0.55 K/mm3 1.0-5.0 L MONOCYTE # (test code = MO#) 1.11 K/mm3 0-0.8 H EOSINOPHIL # (test code = EO#) 0.02 K/mm3 0.0-0.5 N BASOPHIL # (test code = BA#) 0.05 K/mm3 0.0-0.2 N NUCLEATED RBC # (test code = NRBC#) 0.02 K/mm3 0.0-0.1 N MANUAL DIFF REQUIRED (test code = MDIFF) YES STAIN ACCEPTABILITY (test code = STN ACCEPTABLE) TOTAL CELLS COUNTED (test code = TCC) #CELLS SEGMENTED NEUTROPHILS (test code = SEG) % 39-69 LYMPHOCYTE (test code = LYMPH) % 25-55 MONOCYTE (test code = MON) % 0-10 EOSINOPHIL (test code = EOS) % 0.0-5.0 MORPHOLOGY COMMENT (test code = MOC) PLATELET ESTIMATE (test code = PLTEST) PLATELET MORPHOLOGY (test code = PLTMORPH) CBC W/MANUAL [id number] 07:58:00* Test Item Value Reference Range Interpretation Comments WHITE BLOOD CELL (test code = WBC) 15.2 K/mm3 4.5-12.5 H RED BLOOD CELL (test code = RBC) 3.44 mill/mm3 4.0-5.8 L HEMOGLOBIN (test code = HGB) 10.4 gram/dL 13.0-17.5 L HEMATOCRIT (test code = HCT) 34.4 % 42.0-52.0 L MEAN CELL VOLUME (test code = MCV) 100.0 fL 80-98 H MEAN CELL HGB (test code = MCH) 30.2 picogram 27.0-33.0 N MEAN CELL HGB CONCETRATION (test code = MCHC) 30.2 gram/dL 33.0-36. 0 L RED CELL DISTRIBUTION WIDTH (test code = RDW) 15.7 % 11.6-16. 2 N RED CELL DISTRIBUTION WIDTH SD (test code = RDW-SD) 55.9 fL 37 .0-51.0 H PLATELET COUNT (test code = PLT) 202 K/mm3 150-450 N MEAN PLATELET VOLUME (test code = MPV) 10.0 fL 6.7-11.0 N IMMATURE GRANULOCYTE % (test code = IG%) 1.0 % 0.0-5.0 N NUCLEATED RBC % (test code = NRBC%) 0.1 % 0-0 H NEUTROPHIL # (test code = NT#) 13.29 K/mm3 1.8-7.7 H IMMATURE GRANULOCYTE # (test code = IG#) 0.15 x10 3/uL 0-0.03 H LYMPHOCYTE # (test code = LY#) 0.55 K/mm3 1.0-5.0 L MONOCYTE # (test code = MO#) 1.11 K/mm3 0-0.8 H EOSINOPHIL # (test code = EO#) 0.02 K/mm3 0.0-0.5 N BASOPHIL # (test code = BA#) 0.05 K/mm3 0.0-0.2 N NUCLEATED RBC # (test code = NRBC#) 0.02 K/mm3 0.0-0.1 N MANUAL DIFF REQUIRED (test code = MDIFF) YES STAIN ACCEPTABILITY (test code = STN ACCEPTABLE) TOTAL CELLS COUNTED (test code = TCC) #CELLS SEGMENTED NEUTROPHILS (test code = SEG) % 39-69 LYMPHOCYTE (test code = LYMPH) % 25-55 MONOCYTE (test code = MON) % 0-10 MORPHOLOGY COMMENT (test code = MOC) PLATELET ESTIMATE (test code = PLTEST) PLATELET MORPHOLOGY (test code = PLTMORPH) CBC W/MANUAL [id number] 07:58:00* Test Item Value Reference Range Interpretation Comments WHITE BLOOD CELL (test code = WBC) 15.2 K/mm3 4.5-12.5 H RED BLOOD CELL (test code = RBC) 3.44 mill/mm3 4.0-5.8 L HEMOGLOBIN (test code = HGB) 10.4 gram/dL 13.0-17.5 L HEMATOCRIT (test code = HCT) 34.4 % 42.0-52.0 L MEAN CELL VOLUME (test code = MCV) 100.0 fL 80-98 H MEAN CELL HGB (test code = MCH) 30.2 picogram 27.0-33.0 N MEAN CELL HGB CONCETRATION (test code = MCHC) 30.2 gram/dL 33.0-36. 0 L RED CELL DISTRIBUTION WIDTH (test code = RDW) 15.7 % 11.6-16. 2 N RED CELL DISTRIBUTION WIDTH SD (test code = RDW-SD) 55.9 fL 37 .0-51.0 H PLATELET COUNT (test code = PLT) 202 K/mm3 150-450 N MEAN PLATELET VOLUME (test code = MPV) 10.0 fL 6.7-11.0 N IMMATURE GRANULOCYTE % (test code = IG%) 1.0 % 0.0-5.0 N NUCLEATED RBC % (test code = NRBC%) 0.1 % 0-0 H NEUTROPHIL # (test code = NT#) 13.29 K/mm3 1.8-7.7 H IMMATURE GRANULOCYTE # (test code = IG#) 0.15 x10 3/uL 0-0.03 H LYMPHOCYTE # (test code = LY#) 0.55 K/mm3 1.0-5.0 L MONOCYTE # (test code = MO#) 1.11 K/mm3 0-0.8 H EOSINOPHIL # (test code = EO#) 0.02 K/mm3 0.0-0.5 N BASOPHIL # (test code = BA#) 0.05 K/mm3 0.0-0.2 N NUCLEATED RBC # (test code = NRBC#) 0.02 K/mm3 0.0-0.1 N MANUAL DIFF REQUIRED (test code = MDIFF) YES STAIN ACCEPTABILITY (test code = STN ACCEPTABLE) TOTAL CELLS COUNTED (test code = TCC) #CELLS SEGMENTED NEUTROPHILS (test code = SEG) % 39-69 LYMPHOCYTE (test code = LYMPH) % 25-55 MONOCYTE (test code = MON) % 0-10 EOSINOPHIL (test code = EOS) % 0.0-5.0 CABOT RINGS (test code = CAB) MORPHOLOGY COMMENT (test code = MOC) PLATELET ESTIMATE (test code = PLTEST) PLATELET MORPHOLOGY (test code = PLTMORPH) LACTIC [id number] 04:05:00* Test Item Value Reference Range Interpretation Comments LACTIC ACID (test code = LACT) 3.3 mmol/L 0.4-1.9 HH Results called to [id number] by WANDER 01/17/19 0405Critical results verified and read back by Nurse? Y - XR CHEST 1 [id number] 02:13:00 FAX: Wellington Hercules MD [phone] [place]: St: ADM FAX: Es Alonso MD [phone] Name: ARY ALEJO [facility] : 1935 Age/S: 83/M [address] [facility] Unit #: [id number] Loc: [place] [address] Phys: Es Alonso MD Acct: [id number] Dis Date: Status: ADM IN PHONE #: [phone] Exam Date: 01/17/2019 020 FAX #: [phone] Reason: line placement EXAMS: CPT CODE: [id number] XR CHEST 1 V 22493 AFTER HOURS SERVICE ON: 01/17/2019 2:12 AM AP Portable Chest Location Code M12 HISTORY: line placement FINDINGS: Inspiration is shallow limiting the lung bases. There are large bilateral pleural effusions, pulmonary edema and bibasilar alveolar infiltrates without significant improvement from 3 hours ago. ETT remains in place as does the NGT and right IJ catheter. There is a power pack which obscures the right upper lobe. Otherwise, there is no visible pneumothorax. IMPRESSION: No significant interval change in pulmonary edema, effusions and bibasilar infiltrates. at 0213 Reported and signed by: Norma Valadez M.D. CC: Wellington Pace MD; Es Alonso MD Technologist: RT BACILIO Trnscrd Date/Time/By: 01/17/2019 ( 212) : By: [email or web address] Orig Print D/T: S: 01/17/2019 (0216) PAGE 1 Signed Report PROCALCITONIN (PCT)2019-01-17 02:01:00* Test Item Value Reference Range Interpretation Comments PROCALCITONIN (PCT) (test code = PROCAL) 7.42 ng/ml Concentration Interpretation (ng/mL) <0.51 Sepsis is not likely. Local bacterial infection is possible. (LOW RISK for progression to Sepsis) 0.51 - 2.00 Sepsis is possible, but other conditions are known to elevate PCT as well. (MODERATE RISK for progression to Sepsis) > 2.00 Sepsis is likely, unless other causes are known. (HIGH RISK for progression to Severe Sepsis or Septic Shock) 10.00 High likelihood of Severe Sepsis or Septic or higher Shock. *Increased PCT levels may not always be related to systemic bacterial infection.*Low PCT levels do not automatically exclude the presence of bacterial infection.*All results should be interpreted taking into account the patients history. LACTIC [id number] 01:55:00* Test Item Value Reference Range Interpretation Comments LACTIC ACID (test code = LACT) 2.8 mmol/L 0.4-1.9 HH Results called to [id number] by WANDER 01/17/19 0155Critical results verified and read back by Nurse? Y - CTA CHEST FOR [id number] 00:37:00 Name: RAY ALEJO [facility] : 1935 Age/S: 83 / M [address] [facility] Unit #: [id number] Loc: [place] [address] Phys: Es Alonso MD Acct: [id number] Dis Date: Status: ADM IN PHONE #: [phone] Exam Date: 01/17/2019 0015 FAX #: [phone] Reason: SOB, SYNCOPE, TACHYCARDIA EXAMS: CPT CODE: [id number] [place] [id number] LOCATION: Q15 HISTORY: 83-year-old male who presents with dyspnea and tachycardia COMMENT: Axial imaging the patient's chest was obtained from the thoracic inlet through the upper abdomen with IV contrast utilizing pulmonary embolism protocol. Soft tissue and lung window images were submitted in the axial plane. Coronal and sagittal soft tissue reconstructions were included. A chest x-ray obtained January 16, 2019 is available for comparison. CONTRAST: Contrast dose details were not available at the time of dictation.. One or more of the following dose reduction techniques were used: Automated exposure control, adjustment of the mA and/or kV according to patient size, and/or utilization of iterative reconstruction technique. DLP: 380.37 mGy-cm FINDINGS: The pulmonary arteries exhibit no suspicious filling defects. The thoracic aorta exhibits no evidence of aneurysms or dissections. The great vessels are unremarkable. The cardiac silhouette is mildly enlarged. Extensive alveolar infiltrate is seen in both lung bases, worse on the left lower lobe which appears to be completely involved with pneumonia. The right lower lobe is involved in the posterior medial basal segments. The right middle lobe exhibits patchy infiltrate at the right upper lobe is grossly clear. The patient is intubated. A nasogastric tube projects in the stomach. IMPRESSION: There is no evidence of a pulmonary medicine in this patient's chest on this CT study. PAGE 1 Signed Report (CONTINUED) Name: ARY ALEJO [facility] : 1935 Age/S: 83 / M [address] [facility] Unit #: [id number] Loc: [place] [address] Phys: Es Alonso MD Acct: [id number] Dis Date: Status: ADM IN PHONE #: [phone] Exam Date: 01/17/2019 0015 FAX #: [phone] Reason: SOB, SYNCOPE, TACHYCARDIA EXAMS: CPT CODE: [id number] [place] [address] <Continued> Widespread alveolar pneumonia is present. Please see above comments for details. at 0037 Reported and signed by: Moiz Conner M.D. CC: Wellington Pace MD; Es Alonso MD Technologist:ARY DINH CT CTDI: DLP: Trnscb Date/Time: 01/17/2019 (003) [email or web address] Orig Print D/T: S: 01/17/2019 (0041) PAGE 2 Signed Report ARTERIAL BLOOD [id number] 00:33:00* Test Item Value Reference Range Interpretation Comments ARTERIAL BLOOD GAS PH (test code = PHA) 7.34 7.35-7.45 L ARTERIAL BLOOD GAS PCO2 (test code = PCO2A) 51.2 mm Hg 35-45 H ARTERIAL BLOOD GAS PO2 (test code = PO2A) 94.9 mmHg 80-100 N BICARBONATE TOTAL HCO3 (test code = HCO3) 26.8 mmol/L 23.0-27.0 N BASE EXCESS (test code = RAJAN) 0.4 mmol/L -3.0-5.0 N ABG O2 SATURATION (test code = SATA) 96.0 % 90.0-98.0 N ABG TYPE (test code = TYPEA) Arterial FIO2 (test code = FIO2A) 100.0 ABG VENT MODE (test code = MODEA) Assist Control ABG VENT RESP RATE (test code = RRA) 14.0 per min ABG TIDAL VOLUME (test code = TVA) 500.0 mL ABG PEEP (test code = PEEPA) 5.0 cmH2O ABG SITE (test code = SITEA) Rt RADIAL ARTERY MODIFIED ALLENS (test code = MODALL) Unable CHECK PERFORMED HEMATOCRIT (test code = HCT/ABG) 33 % 42-52 L TOTAL HGB (test code = THB) 11.2 gram/dL 13.0-17.5 L HGB O2 SAT (test code = HBOSAT) 95.2 % 94.00-98.00 N CARBOXYHEMOGLOBIN (test code = HOHGBT) 0.5 %totalHg 0.5-1.5 N METHEMOGLOBIN (test code = METHGB) 0.3 % 0.0-1.50 N O2 CONTENT (test code = O2CT) 15.1 % vol 18.0-22.0 L - XR CHEST 1 [id number] 23:03:00 FAX: Wellington Hercules MD [phone] [place]: B : [facility] FAX: Es Alonso MD [phone] Name: ARY ALEJO [facility] : 1935 Age/S: 83/M [facility] Unit #: [id number] Loc: [place], [place] [address] Phys: Es Alonso MD Acct: [id number] Dis Date: Status: ADM IN PHONE #: [phone] Exam Date: 01/16/2019 225 FAX #: [phone] Reason: TUBE PLACEMENT EXAMS: CPT CODE: [id number] XR CHEST 1 V 40842 HISTORY: Tube placement. COMPARISON: Same day. ET tube is above the gerson. NG tube extends below the diaphragm. Right catheter and the right ICD are unchanged. Dense bilateral infiltrates, greater on the right. Small effusions. Dependent changes. Left lower lobe segmental atelectasis. IMPRESSION: ET tube is above the gerson. NG tube extends below the diaphragm. Dense bilateral infiltrates, greater on the right. at 2303 Reported and signed by: Daron Kraft M.D. CC: Wellington Pace MD; Es Alonso MD Technologist: Valentine Brody Trnakrd Date/Time/By: 01/16/2019 (6057) : By: [email or web address] Orig Print D/T: S: 01/16/2019 (8713) PAGE 1 Signed Report B-TYPE NATRIURETIC [id number] 19:14:00* Test Item Value Reference Range Interpretation Comments B-TYPE NATRIURETIC PEPTIDE (test code = BNP) 68.46 pgram/mL 0-100 N PROTHROMBIN [id number] 18:44:00* Test Item Value Reference Range Interpretation Comments PROTHROMBIN TIME PATIENT (test code = PTP) 15.5 seconds 9.0-14.0 H INTERNATIONAL NORMAL RATIO (test code = INR) 1.3 0.8-1.2 H The therapeutic range for oral anticoagulant therapy formost indications is an international normalized ratio (INR)of between 2.0 and 3.0. The recommended therapeutic INRrange for various clinical situations is listed below: Clinical Situation INR range Pulmonary e mbolism treatment (2.0-3.0)Venous thrombosis treatmentVenous thrombosis prophylaxis (high risk surgery)Prevention of systemic embolism from: Acute myocardial infarction Valvular heart disease Atrial fibrillation Mechanical prosthetic heart valves (2.5-3.5) IS PATIENT ON ANTICOAGULANTS? NTHROMBOPLASTIN TIME [id number] 18:44:00* Test Item Value Reference Range Interpretation Comments THROMBOPLASTIN TIME PARTIAL (test code = PTT) 33.6 seconds 25.0-36. 5 N IS PATIENT ON ANTICOAGULANTS? NBASIC METABOLIC [id number] 18:37:00* Test Item Value Reference Range Interpretation Comments SODIUM (test code = NA) 139 mmol/L 136-145 N POTASSIUM (test code = K) 4.5 mmol/L 3.5-5.1 N CHLORIDE (test code = CL) 101.0 mmol/L 98-107 N CARBON DIOXIDE (test code = CO2) 27.0 mmol/L 21-32 N ANION GAP (test code = GAP) 15.5 10-20 N GLUCOSE (test code = GLU) 154 mg/dL 74-106 H BLOOD UREA NITROGEN (test code = BUN) 31 mg/dL 7-18 H GLOMERULAR FILTRATION RATE (test code = GFR) 8 mL/min >=60 Estimated GFR by using Modified MDRD formula.Chronic kidney disease is defined as either kidney damageor GFR <60 mL/min/1.73 m2 for >3 months. CREATININE (test code = CREAT) 6.40 mg/dL 0.7-1.3 H BUN/CREATININE RATIO (test code = BUN/CREA) 4.9 10-20 L CALCIUM (test code = CA) 7.9 mg/dL 8.5-10.1 L HEPATIC FUNCTION [id number] 18:37:00* Test Item Value Reference Range Interpretation Comments TOTAL PROTEIN (test code = PROT) 7.0 gram/dL 6.4-8.2 N ALBUMIN (test code = ALB) 2.9 g/dL 3.4-5.0 L GLOBULIN (test code = GLOB) 4.1 gram/dL 2.7-4.2 N ALBUMIN/GLOBULIN RATIO (test code = A/G) 0.7 0.75-1.50 L BILIRUBIN TOTAL (test code = BILT) 0.40 mg/dL 0.0-1.0 N BILIRUBIN DIRECT (test code = BILD) 0.08 mg/dL 0.0-0.20 N SGOT/AST (test code = AST) 27 IUnit/L 15-37 N SGPT/ALT (test code = ALT) 22 IUnit/L 12-78 N ALKALINE PHOSPHATASE TOTAL (test code = ALKP) 96 IUnit/L 45-117 N Note change in reference range due to change in reagent. [id number] 18:37:00* Test Item Value Reference Range Interpretation Comments LIPASE (test code = LIP) 18 U/L 73.0-393.0 L [id number] 18:37:00* Test Item Value Reference Range Interpretation Comments MAGNESIUM (test code = MAG) 2.0 mg/dL 1.8-2.4 N [id number] 18:37:00* Test Item Value Reference Range Interpretation Comments TROPONIN-I (test code = TROPI) <0.015 ng/mL 0-0.045 N CBC W/O [id number] 18:33:00* Test Item Value Reference Range Interpretation Comments WHITE BLOOD CELL (test code = WBC) 10.9 K/mm3 4.5-12.5 N RED BLOOD CELL (test code = RBC) 3.37 mill/mm3 4.0-5.8 L HEMOGLOBIN (test code = HGB) 10.3 gram/dL 13.0-17.5 L HEMATOCRIT (test code = HCT) 32.7 % 42.0-52.0 L MEAN CELL VOLUME (test code = MCV) 97.0 fL 80-98 N MEAN CELL HGB (test code = MCH) 30.6 picogram 27.0-33.0 N MEAN CELL HGB CONCETRATION (test code = MCHC) 31.5 gram/dL 33.0-36. 0 L RED CELL DISTRIBUTION WIDTH (test code = RDW) 15.8 % 11.6-16. 2 N PLATELET COUNT (test code = PLT) 183 K/mm3 150-450 N MEAN PLATELET VOLUME (test code = MPV) 9.5 fL 6.7-11.0 N ARTERIAL BLOOD [id number] 18:32:00* Test Item Value Reference Range Interpretation Comments ARTERIAL BLOOD GAS PH (test code = PHA) 7.39 7.35-7.45 N ARTERIAL BLOOD GAS PCO2 (test code = PCO2A) 46.1 mm Hg 35-45 H ARTERIAL BLOOD GAS PO2 (test code = PO2A) 88.6 mmHg 80-100 N BICARBONATE TOTAL HCO3 (test code = HCO3) 27.3 mmol/L 23.0-27.0 H BASE EXCESS (test code = RAJAN) 2.0 mmol/L -3.0-5.0 N ABG O2 SATURATION (test code = SATA) 95.5 % 90.0-98.0 N ABG TYPE (test code = TYPEA) Arterial FIO2 (test code = FIO2A) 80.0 ABG SITE (test code = SITEA) Lt RADIAL ARTERY MODIFIED ALLENS (test code = MODALL) Yes CHECK PERFORMED HEMATOCRIT (test code = HCT/ABG) 32 % 42-52 L TOTAL HGB (test code = THB) 11.0 gram/dL 13.0-17.5 L HGB O2 SAT (test code = HBOSAT) 94.8 % 94.00-98.00 N CARBOXYHEMOGLOBIN (test code = HOHGBT) 0.4 %totalHg 0.5-1.5 LL Results called to and read back by Debbie 18:22 - 01/16/2019; by [id number] METHEMOGLOBIN (test code = METHGB) 0.3 % 0.0-1.50 N O2 CONTENT (test code = O2CT) 14.8 % vol 18.0-22.0 L BASIC METABOLIC [id number] 18:29:00* Test Item Value Reference Range Interpretation Comments SODIUM (test code = NA) 139 mmol/L 136-145 N POTASSIUM (test code = K) 4.5 mmol/L 3.5-5.1 N CHLORIDE (test code = CL) 101.0 mmol/L 98-107 N CARBON DIOXIDE (test code = CO2) mmol/L 21-32 ANION GAP (test code = GAP) 10-20 GLUCOSE (test code = GLU) mg/dL 74-106 BLOOD UREA NITROGEN (test code = BUN) mg/dL 7-18 GLOMERULAR FILTRATION RATE (test code = GFR) mL/min >=60 CREATININE (test code = CREAT) mg/dL 0.7-1.3 BUN/CREATININE RATIO (test code = BUN/CREA) 10-20 CALCIUM (test code = CA) mg/dL 8.5-10.1 HEPATIC FUNCTION [id number] 18:29:00* Test Item Value Reference Range Interpretation Comments TOTAL PROTEIN (test code = PROT) gram/dL 6.4-8.2 ALBUMIN (test code = ALB) g/dL 3.4-5.0 GLOBULIN (test code = GLOB) gram/dL 2.7-4.2 ALBUMIN/GLOBULIN RATIO (test code = A/G) 0.75-1.50 BILIRUBIN TOTAL (test code = BILT) mg/dL 0.0-1.0 BILIRUBIN DIRECT (test code = BILD) mg/dL 0.0-0.20 SGOT/AST (test code = AST) IUnit/L 15-37 SGPT/ALT (test code = ALT) IUnit/L 12-78 ALKALINE PHOSPHATASE TOTAL (test code = ALKP) IUnit/L 45-117 [id number] 18:29:00* Test Item Value Reference Range Interpretation Comments LIPASE (test code = LIP) U/L 73.0-393.0 [id number] 18:29:00* Test Item Value Reference Range Interpretation Comments MAGNESIUM (test code = MAG) mg/dL 1.8-2.4 [id number] 18:29:00* Test Item Value Reference Range Interpretation Comments TROPONIN-I (test code = TROPI) ng/mL 0-0.045 - XR CHEST 1 [id number] 18:08:00 FAX: Wellington Hercules MD [phone] [place]: St: PRE FAX: Es Alonso MD [phone] Name: ARY ALEJO [facility] : 1935 Age/S: 83/M [address] [facility] Unit #: [id number] Loc: [place] [address] Phys: Es Alonso MD Acct: [id number] Dis Date: Status: PRE ER PHONE #: [phone] Exam Date: 01/16/2019 180 FAX #: [phone] Reason: Shortness of Breath EXAMS: CPT CODE: [id number] XR CHEST 1 V 38282 HISTORY: Shortness of breath. COMPARISON: November 09, 2018. Right jugular catheter and the right ICD with the lead extending into the right neck remain unchanged in position. No acute infiltrates, effusion or congestion. Cardiac silhouette is mildly enlarged. IMPRESSION: No acute infiltrates, effusion or congestion. at 1808 Reported and signed by: Daron Kraft M.D. CC: Wellington Pace MD; Es Alonso MD Technologist: Briana Valente(Jade) Trnscrd Date/Time/By: 01/16/2019 (1807) : By: [email or web address] Orig Print D/T: S: 01/16/2019 (1810) PAGE 1 Signed Report [id number] 07:44:00* Test Item Value Reference Range Interpretation Comments GLUBED (test code = GLUBED) 156 mg/dL 74-106 H Performed by certified cream separator operator at [facility] [id number] 12:12:00* Test Item Value Reference Range Interpretation Comments GLUBED (test code = GLUBED) 146 mg/dL 74-106 H Performed by certified cream separator operator at [facility] CBC W/AUTO [id number] 08:29:00* Test Item Value Reference Range Interpretation Comments WHITE BLOOD CELL (test code = WBC) 10.1 K/mm3 4.5-12.5 N RED BLOOD CELL (test code = RBC) 2.98 mill/mm3 4.0-5.8 L HEMOGLOBIN (test code = HGB) 9.3 gram/dL 13.0-17.5 L HEMATOCRIT (test code = HCT) 31.7 % 42.0-52.0 L MEAN CELL VOLUME (test code = MCV) 106.4 fL 80-98 H MEAN CELL HGB (test code = MCH) 31.2 picogram 27.0-33.0 N MEAN CELL HGB CONCETRATION (test code = MCHC) 29.3 gram/dL 33.0-36. 0 L RED CELL DISTRIBUTION WIDTH (test code = RDW) 15.4 % 11.6-16. 2 N RED CELL DISTRIBUTION WIDTH SD (test code = RDW-SD) 60.1 fL 37 .0-51.0 H PLATELET COUNT (test code = PLT) 189 K/mm3 150-450 N MEAN PLATELET VOLUME (test code = MPV) 9.7 fL 6.7-11.0 N NEUTROPHIL % (test code = NT%) 69.7 % 39.0-69.0 H IMMATURE GRANULOCYTE % (test code = IG%) 2.0 % 0.0-5.0 N LYMPHOCYTE % (test code = LY%) 13.8 % 25.0-55.0 L MONOCYTE % (test code = MO%) 10.1 % 0.0-10.0 H EOSINOPHIL % (test code = EO%) 3.6 % 0.0-5.0 N BASOPHIL % (test code = BA%) 0.8 % 0.0-1.0 N NUCLEATED RBC % (test code = NRBC%) 0.0 % 0-0 N NEUTROPHIL # (test code = NT#) 7.06 K/mm3 1.8-7.7 N IMMATURE GRANULOCYTE # (test code = IG#) 0.20 x10 3/uL 0-0.03 H LYMPHOCYTE # (test code = LY#) 1.40 K/mm3 1.0-5.0 N MONOCYTE # (test code = MO#) 1.02 K/mm3 0-0.8 H EOSINOPHIL # (test code = EO#) 0.36 K/mm3 0.0-0.5 N BASOPHIL # (test code = BA#) 0.08 K/mm3 0.0-0.2 N NUCLEATED RBC # (test code = NRBC#) 0.00 K/mm3 0.0-0.1 N MANUAL DIFF REQUIRED (test code = MDIFF) NO, ONLY SCAN NEEDED DIFFERENTIAL [id number] 08:29:00* Test Item Value Reference Range Interpretation Comments STAIN ACCEPTABILITY (test code = STN ACCEPTABLE) STAIN ACCEPTABLE POIKILOCYTOSIS (test code = POIK) 1+ TEAR DROP CELLS (test code = TEAR) 1+ PLATELET ESTIMATE (test code = PLTEST) ADEQUATE PLATELET MORPHOLOGY (test code = PLTMORPH) NORMAL [id number] 08:09:00* Test Item Value Reference Range Interpretation Comments GLUBED (test code = GLUBED) 163 mg/dL 74-106 H Performed by certified cream separator operator at [facility] BASIC METABOLIC [id number] 07:39:00* Test Item Value Reference Range Interpretation Comments SODIUM (test code = NA) 141 mmol/L 136-145 N POTASSIUM (test code = K) 4.7 mmol/L 3.5-5.1 N CHLORIDE (test code = CL) 103.0 mmol/L 98-107 N CARBON DIOXIDE (test code = CO2) 27.0 mmol/L 21-32 N ANION GAP (test code = GAP) 15.7 10-20 N GLUCOSE (test code = GLU) 79 mg/dL 74-106 N BLOOD UREA NITROGEN (test code = BUN) 34 mg/dL 7-18 H GLOMERULAR FILTRATION RATE (test code = GFR) 10 mL/min >=60 Estimated GFR by using Modified MDRD formula.Chronic kidney disease is defined as either kidney damageor GFR <60 mL/min/1.73 m2 for >3 months. CREATININE (test code = CREAT) 5.50 mg/dL 0.7-1.3 H BUN/CREATININE RATIO (test code = BUN/CREA) 6.2 10-20 L CALCIUM (test code = CA) 8.5 mg/dL 8.5-10.1 N BASIC METABOLIC [id number] 07:36:00* Test Item Value Reference Range Interpretation Comments SODIUM (test code = NA) 141 mmol/L 136-145 N POTASSIUM (test code = K) 4.7 mmol/L 3.5-5.1 N CHLORIDE (test code = CL) 103.0 mmol/L 98-107 N CARBON DIOXIDE (test code = CO2) mmol/L 21-32 ANION GAP (test code = GAP) 10-20 GLUCOSE (test code = GLU) mg/dL 74-106 BLOOD UREA NITROGEN (test code = BUN) mg/dL 7-18 GLOMERULAR FILTRATION RATE (test code = GFR) mL/min >=60 CREATININE (test code = CREAT) mg/dL 0.7-1.3 BUN/CREATININE RATIO (test code = BUN/CREA) 10-20 CALCIUM (test code = CA) 8.5 mg/dL 8.5-10.1 N CBC W/AUTO [id number] 07:28:00* Test Item Value Reference Range Interpretation Comments WHITE BLOOD CELL (test code = WBC) 10.1 K/mm3 4.5-12.5 N RED BLOOD CELL (test code = RBC) 2.98 mill/mm3 4.0-5.8 L HEMOGLOBIN (test code = HGB) 9.3 gram/dL 13.0-17.5 L HEMATOCRIT (test code = HCT) 31.7 % 42.0-52.0 L MEAN CELL VOLUME (test code = MCV) 106.4 fL 80-98 H MEAN CELL HGB (test code = MCH) 31.2 picogram 27.0-33.0 N MEAN CELL HGB CONCETRATION (test code = MCHC) 29.3 gram/dL 33.0-36. 0 L RED CELL DISTRIBUTION WIDTH (test code = RDW) 15.4 % 11.6-16. 2 N RED CELL DISTRIBUTION WIDTH SD (test code = RDW-SD) 60.1 fL 37 .0-51.0 H PLATELET COUNT (test code = PLT) 189 K/mm3 150-450 N MEAN PLATELET VOLUME (test code = MPV) 9.7 fL 6.7-11.0 N NEUTROPHIL % (test code = NT%) 69.7 % 39.0-69.0 H IMMATURE GRANULOCYTE % (test code = IG%) 2.0 % 0.0-5.0 N LYMPHOCYTE % (test code = LY%) 13.8 % 25.0-55.0 L MONOCYTE % (test code = MO%) 10.1 % 0.0-10.0 H EOSINOPHIL % (test code = EO%) 3.6 % 0.0-5.0 N BASOPHIL % (test code = BA%) 0.8 % 0.0-1.0 N NUCLEATED RBC % (test code = NRBC%) 0.0 % 0-0 N NEUTROPHIL # (test code = NT#) 7.06 K/mm3 1.8-7.7 N IMMATURE GRANULOCYTE # (test code = IG#) 0.20 x10 3/uL 0-0.03 H LYMPHOCYTE # (test code = LY#) 1.40 K/mm3 1.0-5.0 N MONOCYTE # (test code = MO#) 1.02 K/mm3 0-0.8 H EOSINOPHIL # (test code = EO#) 0.36 K/mm3 0.0-0.5 N BASOPHIL # (test code = BA#) 0.08 K/mm3 0.0-0.2 N NUCLEATED RBC # (test code = NRBC#) 0.00 K/mm3 0.0-0.1 N MANUAL DIFF REQUIRED (test code = MDIFF) NO, ONLY SCAN NEEDED DIFFERENTIAL [id number] 07:28:00* Test Item Value Reference Range Interpretation Comments STAIN ACCEPTABILITY (test code = STN ACCEPTABLE) CABOT RINGS (test code = CAB) MORPHOLOGY COMMENT (test code = MOC) PLATELET ESTIMATE (test code = PLTEST) PLATELET MORPHOLOGY (test code = PLTMORPH) CBC W/AUTO [id number] 07:28:00* Test Item Value Reference Range Interpretation Comments WHITE BLOOD CELL (test code = WBC) 10.1 K/mm3 4.5-12.5 N RED BLOOD CELL (test code = RBC) 2.98 mill/mm3 4.0-5.8 L HEMOGLOBIN (test code = HGB) 9.3 gram/dL 13.0-17.5 L HEMATOCRIT (test code = HCT) 31.7 % 42.0-52.0 L MEAN CELL VOLUME (test code = MCV) 106.4 fL 80-98 H MEAN CELL HGB (test code = MCH) 31.2 picogram 27.0-33.0 N MEAN CELL HGB CONCETRATION (test code = MCHC) 29.3 gram/dL 33.0-36. 0 L RED CELL DISTRIBUTION WIDTH (test code = RDW) 15.4 % 11.6-16. 2 N RED CELL DISTRIBUTION WIDTH SD (test code = RDW-SD) 60.1 fL 37 .0-51.0 H PLATELET COUNT (test code = PLT) 189 K/mm3 150-450 N MEAN PLATELET VOLUME (test code = MPV) 9.7 fL 6.7-11.0 N NEUTROPHIL % (test code = NT%) 69.7 % 39.0-69.0 H IMMATURE GRANULOCYTE % (test code = IG%) 2.0 % 0.0-5.0 N LYMPHOCYTE % (test code = LY%) 13.8 % 25.0-55.0 L MONOCYTE % (test code = MO%) 10.1 % 0.0-10.0 H EOSINOPHIL % (test code = EO%) 3.6 % 0.0-5.0 N BASOPHIL % (test code = BA%) 0.8 % 0.0-1.0 N NUCLEATED RBC % (test code = NRBC%) 0.0 % 0-0 N NEUTROPHIL # (test code = NT#) 7.06 K/mm3 1.8-7.7 N IMMATURE GRANULOCYTE # (test code = IG#) 0.20 x10 3/uL 0-0.03 H LYMPHOCYTE # (test code = LY#) 1.40 K/mm3 1.0-5.0 N MONOCYTE # (test code = MO#) 1.02 K/mm3 0-0.8 H EOSINOPHIL # (test code = EO#) 0.36 K/mm3 0.0-0.5 N BASOPHIL # (test code = BA#) 0.08 K/mm3 0.0-0.2 N NUCLEATED RBC # (test code = NRBC#) 0.00 K/mm3 0.0-0.1 N MANUAL DIFF REQUIRED (test code = MDIFF) NO, ONLY SCAN NEEDED DIFFERENTIAL [id number] 07:28:00* Test Item Value Reference Range Interpretation Comments STAIN ACCEPTABILITY (test code = STN ACCEPTABLE) CABOT RINGS (test code = CAB) MORPHOLOGY COMMENT (test code = MOC) PLATELET ESTIMATE (test code = PLTEST) PLATELET MORPHOLOGY (test code = PLTMORPH) CBC W/AUTO [id number] 07:28:00* Test Item Value Reference Range Interpretation Comments WHITE BLOOD CELL (test code = WBC) 10.1 K/mm3 4.5-12.5 N RED BLOOD CELL (test code = RBC) 2.98 mill/mm3 4.0-5.8 L HEMOGLOBIN (test code = HGB) 9.3 gram/dL 13.0-17.5 L HEMATOCRIT (test code = HCT) 31.7 % 42.0-52.0 L MEAN CELL VOLUME (test code = MCV) 106.4 fL 80-98 H MEAN CELL HGB (test code = MCH) 31.2 picogram 27.0-33.0 N MEAN CELL HGB CONCETRATION (test code = MCHC) 29.3 gram/dL 33.0-36. 0 L RED CELL DISTRIBUTION WIDTH (test code = RDW) 15.4 % 11.6-16. 2 N RED CELL DISTRIBUTION WIDTH SD (test code = RDW-SD) 60.1 fL 37 .0-51.0 H PLATELET COUNT (test code = PLT) 189 K/mm3 150-450 N MEAN PLATELET VOLUME (test code = MPV) 9.7 fL 6.7-11.0 N NEUTROPHIL % (test code = NT%) 69.7 % 39.0-69.0 H IMMATURE GRANULOCYTE % (test code = IG%) 2.0 % 0.0-5.0 N LYMPHOCYTE % (test code = LY%) 13.8 % 25.0-55.0 L MONOCYTE % (test code = MO%) 10.1 % 0.0-10.0 H EOSINOPHIL % (test code = EO%) 3.6 % 0.0-5.0 N BASOPHIL % (test code = BA%) 0.8 % 0.0-1.0 N NUCLEATED RBC % (test code = NRBC%) 0.0 % 0-0 N NEUTROPHIL # (test code = NT#) 7.06 K/mm3 1.8-7.7 N IMMATURE GRANULOCYTE # (test code = IG#) 0.20 x10 3/uL 0-0.03 H LYMPHOCYTE # (test code = LY#) 1.40 K/mm3 1.0-5.0 N MONOCYTE # (test code = MO#) 1.02 K/mm3 0-0.8 H EOSINOPHIL # (test code = EO#) 0.36 K/mm3 0.0-0.5 N BASOPHIL # (test code = BA#) 0.08 K/mm3 0.0-0.2 N NUCLEATED RBC # (test code = NRBC#) 0.00 K/mm3 0.0-0.1 N MANUAL DIFF REQUIRED (test code = MDIFF) NO, ONLY SCAN NEEDED DIFFERENTIAL [id number] 07:28:00* Test Item Value Reference Range Interpretation Comments STAIN ACCEPTABILITY (test code = STN ACCEPTABLE) MORPHOLOGY COMMENT (test code = MOC) PLATELET ESTIMATE (test code = PLTEST) PLATELET MORPHOLOGY (test code = PLTMORPH) CBC W/AUTO [id number] 07:28:00* Test Item Value Reference Range Interpretation Comments WHITE BLOOD CELL (test code = WBC) 10.1 K/mm3 4.5-12.5 N RED BLOOD CELL (test code = RBC) 2.98 mill/mm3 4.0-5.8 L HEMOGLOBIN (test code = HGB) 9.3 gram/dL 13.0-17.5 L HEMATOCRIT (test code = HCT) 31.7 % 42.0-52.0 L MEAN CELL VOLUME (test code = MCV) 106.4 fL 80-98 H MEAN CELL HGB (test code = MCH) 31.2 picogram 27.0-33.0 N MEAN CELL HGB CONCETRATION (test code = MCHC) 29.3 gram/dL 33.0-36. 0 L RED CELL DISTRIBUTION WIDTH (test code = RDW) 15.4 % 11.6-16. 2 N RED CELL DISTRIBUTION WIDTH SD (test code = RDW-SD) 60.1 fL 37 .0-51.0 H PLATELET COUNT (test code = PLT) 189 K/mm3 150-450 N MEAN PLATELET VOLUME (test code = MPV) 9.7 fL 6.7-11.0 N NEUTROPHIL % (test code = NT%) 69.7 % 39.0-69.0 H IMMATURE GRANULOCYTE % (test code = IG%) 2.0 % 0.0-5.0 N LYMPHOCYTE % (test code = LY%) 13.8 % 25.0-55.0 L MONOCYTE % (test code = MO%) 10.1 % 0.0-10.0 H EOSINOPHIL % (test code = EO%) 3.6 % 0.0-5.0 N BASOPHIL % (test code = BA%) 0.8 % 0.0-1.0 N NUCLEATED RBC % (test code = NRBC%) 0.0 % 0-0 N NEUTROPHIL # (test code = NT#) 7.06 K/mm3 1.8-7.7 N IMMATURE GRANULOCYTE # (test code = IG#) 0.20 x10 3/uL 0-0.03 H LYMPHOCYTE # (test code = LY#) 1.40 K/mm3 1.0-5.0 N MONOCYTE # (test code = MO#) 1.02 K/mm3 0-0.8 H EOSINOPHIL # (test code = EO#) 0.36 K/mm3 0.0-0.5 N BASOPHIL # (test code = BA#) 0.08 K/mm3 0.0-0.2 N NUCLEATED RBC # (test code = NRBC#) 0.00 K/mm3 0.0-0.1 N MANUAL DIFF REQUIRED (test code = MDIFF) NO, ONLY SCAN NEEDED DIFFERENTIAL [id number] 07:28:00* Test Item Value Reference Range Interpretation Comments STAIN ACCEPTABILITY (test code = STN ACCEPTABLE) CABOT RINGS (test code = CAB) MORPHOLOGY COMMENT (test code = MOC) PLATELET ESTIMATE (test code = PLTEST) PLATELET MORPHOLOGY (test code = PLTMORPH) PROTHROMBIN [id number] 05:55:00* Test Item Value Reference Range Interpretation Comments PROTHROMBIN TIME PATIENT (test code = PTP) 25.0 seconds 9.0-14.0 H INTERNATIONAL NORMAL RATIO (test code = INR) 2.1 0.8-1.2 H The therapeutic range for oral anticoagulant therapy formost indications is an international normalized ratio (INR)of between 2.0 and 3.0. The recommended therapeutic INRrange for various clinical situations is listed below: Clinical Situation INR range Pulmonary e mbolism treatment (2.0-3.0)Venous thrombosis treatmentVenous thrombosis prophylaxis (high risk surgery)Prevention of systemic embolism from: Acute myocardial infarction Valvular heart disease Atrial fibrillation Mechanical prosthetic heart valves (2.5-3.5) IS PATIENT ON ANTICOAGULANTS? YLIST ANTICOAGULANTS [id number] 20:42:00* Test Item Value Reference Range Interpretation Comments GLUBED (test code = GLUBED) 137 mg/dL 74-106 H Performed by certified cream separator operator at [facility] [id number] 16:52:00* Test Item Value Reference Range Interpretation Comments GLUBED (test code = GLUBED) 264 mg/dL 74-106 H Performed by certified cream separator operator at [facility] [id number] 13:12:00* Test Item Value Reference Range Interpretation Comments GLUBED (test code = GLUBED) 179 mg/dL 74-106 H Performed by certified cream separator operator at [facility] PROTHROMBIN [id number] 06:01:00* Test Item Value Reference Range Interpretation Comments PROTHROMBIN TIME PATIENT (test code = PTP) 20.9 seconds 9.0-14.0 H INTERNATIONAL NORMAL RATIO (test code = INR) 1.8 0.8-1.2 H The therapeutic range for oral anticoagulant therapy formost indications is an international normalized ratio (INR)of between 2.0 and 3.0. The recommended therapeutic INRrange for various clinical situations is listed below: Clinical Situation INR range Pulmonary e mbolism treatment (2.0-3.0)Venous thrombosis treatmentVenous thrombosis prophylaxis (high risk surgery)Prevention of systemic embolism from: Acute myocardial infarction Valvular heart disease Atrial fibrillation Mechanical prosthetic heart valves (2.5-3.5) IS PATIENT ON ANTICOAGULANTS? YLIST ANTICOAGULANTS COUMADINCBC W/AUTO DIFF 2018-11-22 05:54:00* Test Item Value Reference Range Interpretation Comments WHITE BLOOD CELL (test code = WBC) 10.9 K/mm3 4.5-12.5 N RED BLOOD CELL (test code = RBC) 2.47 mill/mm3 4.0-5.8 L HEMOGLOBIN (test code = HGB) 7.7 gram/dL 13.0-17.5 L HEMATOCRIT (test code = HCT) 25.4 % 42.0-52.0 L MEAN CELL VOLUME (test code = MCV) 102.8 fL 80-98 H MEAN CELL HGB (test code = MCH) 31.2 picogram 27.0-33.0 N MEAN CELL HGB CONCETRATION (test code = MCHC) 30.3 gram/dL 33.0-36. 0 L RED CELL DISTRIBUTION WIDTH (test code = RDW) 15.5 % 11.6-16. 2 N RED CELL DISTRIBUTION WIDTH SD (test code = RDW-SD) 57.1 fL 37 .0-51.0 H PLATELET COUNT (test code = PLT) 164 K/mm3 150-450 N MEAN PLATELET VOLUME (test code = MPV) 10.0 fL 6.7-11.0 N NEUTROPHIL % (test code = NT%) 71.1 % 39.0-69.0 H IMMATURE GRANULOCYTE % (test code = IG%) 1.0 % 0.0-5.0 N LYMPHOCYTE % (test code = LY%) 12.1 % 25.0-55.0 L MONOCYTE % (test code = MO%) 11.6 % 0.0-10.0 H EOSINOPHIL % (test code = EO%) 3.6 % 0.0-5.0 N BASOPHIL % (test code = BA%) 0.6 % 0.0-1.0 N NUCLEATED RBC % (test code = NRBC%) 0.0 % 0-0 N NEUTROPHIL # (test code = NT#) 7.78 K/mm3 1.8-7.7 H IMMATURE GRANULOCYTE # (test code = IG#) 0.11 x10 3/uL 0-0.03 H LYMPHOCYTE # (test code = LY#) 1.32 K/mm3 1.0-5.0 N MONOCYTE # (test code = MO#) 1.27 K/mm3 0-0.8 H EOSINOPHIL # (test code = EO#) 0.39 K/mm3 0.0-0.5 N BASOPHIL # (test code = BA#) 0.07 K/mm3 0.0-0.2 N NUCLEATED RBC # (test code = NRBC#) 0.00 K/mm3 0.0-0.1 N MANUAL DIFF REQUIRED (test code = MDIFF) NO BASIC METABOLIC [id number] 05:27:00* Test Item Value Reference Range Interpretation Comments SODIUM (test code = NA) 140 mmol/L 136-145 N POTASSIUM (test code = K) 5.0 mmol/L 3.5-5.1 N CHLORIDE (test code = CL) 104.0 mmol/L 98-107 N CARBON DIOXIDE (test code = CO2) 26.0 mmol/L 21-32 N ANION GAP (test code = GAP) 15.0 10-20 N GLUCOSE (test code = GLU) 158 mg/dL 74-106 H BLOOD UREA NITROGEN (test code = BUN) 50 mg/dL 7-18 H GLOMERULAR FILTRATION RATE (test code = GFR) 8 mL/min >=60 Estimated GFR by using Modified MDRD formula.Chronic kidney disease is defined as either kidney damageor GFR <60 mL/min/1.73 m2 for >3 months. CREATININE (test code = CREAT) 7.00 mg/dL 0.7-1.3 H BUN/CREATININE RATIO (test code = BUN/CREA) 7.1 10-20 L CALCIUM (test code = CA) 8.6 mg/dL 8.5-10.1 N BASIC METABOLIC [id number] 05:15:00* Test Item Value Reference Range Interpretation Comments SODIUM (test code = NA) 140 mmol/L 136-145 N POTASSIUM (test code = K) 5.0 mmol/L 3.5-5.1 N CHLORIDE (test code = CL) 104.0 mmol/L 98-107 N CARBON DIOXIDE (test code = CO2) mmol/L 21-32 ANION GAP (test code = GAP) 10-20 GLUCOSE (test code = GLU) mg/dL 74-106 BLOOD UREA NITROGEN (test code = BUN) mg/dL 7-18 GLOMERULAR FILTRATION RATE (test code = GFR) mL/min >=60 CREATININE (test code = CREAT) mg/dL 0.7-1.3 BUN/CREATININE RATIO (test code = BUN/CREA) 10-20 CALCIUM (test code = CA) mg/dL 8.5-10.1 [id number] 21:07:00* Test Item Value Reference Range Interpretation Comments GLUBED (test code = GLUBED) 99 mg/dL 74-106 N Performed by certified cream separator operator at [facility] [id number] 21:07:00* Test Item Value Reference Range Interpretation Comments GLUBED (test code = GLUBED) 58 mg/dL 74-106 L Performed by certified cream separator operator at [facility] [id number] 16:57:00* Test Item Value Reference Range Interpretation Comments GLUBED (test code = GLUBED) 76 mg/dL 74-106 N Performed by certified cream separator operator at [facility] [id number] 12:29:00* Test Item Value Reference Range Interpretation Comments GLUBED (test code = GLUBED) 246 mg/dL 74-106 H Performed by certified cream separator operator at [facility] [id number] 08:51:00* Test Item Value Reference Range Interpretation Comments GLUBED (test code = GLUBED) 139 mg/dL 74-106 H Performed by certified cream separator operator at [facility] PROTHROMBIN [id number] 05:02:00* Test Item Value Reference Range Interpretation Comments PROTHROMBIN TIME PATIENT (test code = PTP) 17.8 seconds 9.0-14.0 H INTERNATIONAL NORMAL RATIO (test code = INR) 1.5 0.8-1.2 H The therapeutic range for oral anticoagulant therapy formost indications is an international normalized ratio (INR)of between 2.0 and 3.0. The recommended therapeutic INRrange for various clinical situations is listed below: Clinical Situation INR range Pulmonary e mbolism treatment (2.0-3.0)Venous thrombosis treatmentVenous thrombosis prophylaxis (high risk surgery)Prevention of systemic embolism from: Acute myocardial infarction Valvular heart disease Atrial fibrillation Mechanical prosthetic heart valves (2.5-3.5) IS PATIENT ON ANTICOAGULANTS? YLIST ANTICOAGULANTS [id number] 20:26:00* Test Item Value Reference Range Interpretation Comments GLUBED (test code = GLUBED) 148 mg/dL 74-106 H Performed by certified cream separator operator at [facility] [id number] 18:02:00* Test Item Value Reference Range Interpretation Comments GLUBED (test code = GLUBED) 230 mg/dL 74-106 H Performed by certified cream separator operator at [facility] BASIC METABOLIC [id number] 10:12:00* Test Item Value Reference Range Interpretation Comments SODIUM (test code = NA) 138 mmol/L 136-145 N POTASSIUM (test code = K) 5.2 mmol/L 3.5-5.1 H CHLORIDE (test code = CL) 102.0 mmol/L 98-107 N CARBON DIOXIDE (test code = CO2) 27.0 mmol/L 21-32 N ANION GAP (test code = GAP) 14.2 10-20 N GLUCOSE (test code = GLU) 177 mg/dL 74-106 H BLOOD UREA NITROGEN (test code = BUN) 52 mg/dL 7-18 H GLOMERULAR FILTRATION RATE (test code = GFR) 7 mL/min >=60 Estimated GFR by using Modified MDRD formula.Chronic kidney disease is defined as either kidney damageor GFR <60 mL/min/1.73 m2 for >3 months. CREATININE (test code = CREAT) 7.50 mg/dL 0.7-1.3 H BUN/CREATININE RATIO (test code = BUN/CREA) 6.9 10-20 L CALCIUM (test code = CA) 8.5 mg/dL 8.5-10.1 N BASIC METABOLIC [id number] 10:05:00* Test Item Value Reference Range Interpretation Comments SODIUM (test code = NA) 138 mmol/L 136-145 N POTASSIUM (test code = K) 5.2 mmol/L 3.5-5.1 H CHLORIDE (test code = CL) 102.0 mmol/L 98-107 N CARBON DIOXIDE (test code = CO2) mmol/L 21-32 ANION GAP (test code = GAP) 10-20 GLUCOSE (test code = GLU) mg/dL 74-106 BLOOD UREA NITROGEN (test code = BUN) mg/dL 7-18 GLOMERULAR FILTRATION RATE (test code = GFR) mL/min >=60 CREATININE (test code = CREAT) mg/dL 0.7-1.3 BUN/CREATININE RATIO (test code = BUN/CREA) 10-20 CALCIUM (test code = CA) mg/dL 8.5-10.1 CBC W/O [id number] 09:43:00* Test Item Value Reference Range Interpretation Comments WHITE BLOOD CELL (test code = WBC) 11.5 K/mm3 4.5-12.5 N RED BLOOD CELL (test code = RBC) 2.62 mill/mm3 4.0-5.8 L HEMOGLOBIN (test code = HGB) 8.2 gram/dL 13.0-17.5 L HEMATOCRIT (test code = HCT) 26.6 % 42.0-52.0 L MEAN CELL VOLUME (test code = MCV) 101.5 fL 80-98 H MEAN CELL HGB (test code = MCH) 31.3 picogram 27.0-33.0 N MEAN CELL HGB CONCETRATION (test code = MCHC) 30.8 gram/dL 33.0-36. 0 L RED CELL DISTRIBUTION WIDTH (test code = RDW) 15.5 % 11.6-16. 2 N PLATELET COUNT (test code = PLT) 172 K/mm3 150-450 N MEAN PLATELET VOLUME (test code = MPV) 9.4 fL 6.7-11.0 N PROTHROMBIN [id number] 09:12:00* Test Item Value Reference Range Interpretation Comments PROTHROMBIN TIME PATIENT (test code = PTP) 14.5 seconds 9.0-14.0 H INTERNATIONAL NORMAL RATIO (test code = INR) 1.2 0.8-1.2 N The therapeutic range for oral anticoagulant therapy formost indications is an international normalized ratio (INR)of between 2.0 and 3.0. The recommended therapeutic INRrange for various clinical situations is listed below: Clinical Situation INR range Pulmonary e mbolism treatment (2.0-3.0)Venous thrombosis treatmentVenous thrombosis prophylaxis (high risk surgery)Prevention of systemic embolism from: Acute myocardial infarction Valvular heart disease Atrial fibrillation Mechanical prosthetic heart valves (2.5-3.5) IS PATIENT ON ANTICOAGULANTS? YLIST ANTICOAGULANTS [id number] 08:42:00* Test Item Value Reference Range Interpretation Comments GLUBED (test code = GLUBED) 81 mg/dL 74-106 N Performed by certified cream separator operator at [facility] [id number] 00:33:00* Test Item Value Reference Range Interpretation Comments GLUBED (test code = GLUBED) 128 mg/dL 74-106 H Performed by certified cream separator operator at [facility] [id number] 20:02:00* Test Item Value Reference Range Interpretation Comments GLUBED (test code = GLUBED) 98 mg/dL 74-106 N Performed by certified cream separator operator at [facility] PROTHROMBIN [id number] 19:15:00* Test Item Value Reference Range Interpretation Comments PROTHROMBIN TIME PATIENT (test code = PTP) 12.9 seconds 9.0-14.0 N INTERNATIONAL NORMAL RATIO (test code = INR) 1.1 0.8-1.2 N The therapeutic range for oral anticoagulant therapy formost indications is an international normalized ratio (INR)of between 2.0 and 3.0. The recommended therapeutic INRrange for various clinical situations is listed below: Clinical Situation INR range Pulmonary e mbolism treatment (2.0-3.0)Venous thrombosis treatmentVenous thrombosis prophylaxis (high risk surgery)Prevention of systemic embolism from: Acute myocardial infarction Valvular heart disease Atrial fibrillation Mechanical prosthetic heart valves (2.5-3.5) IS PATIENT ON ANTICOAGULANTS? YLIST ANTICOAGULANTS [id number] 18:15:00* Test Item Value Reference Range Interpretation Comments GLUBED (test code = GLUBED) 114 mg/dL 74-106 H Performed by certified cream separator operator at [facility] [id number] 16:48:00* Test Item Value Reference Range Interpretation Comments GLUBED (test code = GLUBED) 47 mg/dL 74-106 LL Performed by certified cream separator operator at [facility] [id number] 11:58:00* Test Item Value Reference Range Interpretation Comments GLUBED (test code = GLUBED) 119 mg/dL 74-106 H Performed by certified cream separator operator at [facility] [id number] 08:16:00* Test Item Value Reference Range Interpretation Comments GLUBED (test code = GLUBED) 148 mg/dL 74-106 H Performed by certified cream separator operator at [facility] AB HEPATITIS B [id number] 03:07:00* Test Item Value Reference Range Interpretation Comments AB HEPATITIS B SURFACE (test code = HBSAB) Reactive () Non Reactive: Inconsistent with immunity, less than 10 mIU/mL Reactive: Consistent with immunity, greater than 9.9 mIU/mLPerformed At: [facility] [id number] Kyle L MD Ph:[phone] [id number] 23:39:00* Test Item Value Reference Range Interpretation Comments GLUBED (test code = GLUBED) 119 mg/dL 74-106 H Performed by certified cream separator operator at [facility] [id number] 23:39:00* Test Item Value Reference Range Interpretation Comments GLUBED (test code = GLUBED) 48 mg/dL 74-106 LL [facility] HospitalNotified Nurse~ [id number] 20:10:00* Test Item Value Reference Range Interpretation Comments GLUBED (test code = GLUBED) 78 mg/dL 74-106 N Performed by certified cream separator operator at [facility] [id number] 17:00:00* Test Item Value Reference Range Interpretation Comments GLUBED (test code = GLUBED) 148 mg/dL 74-106 H Performed by certified cream separator operator at [facility] [id number] 14:30:00* Test Item Value Reference Range Interpretation Comments GLUBED (test code = GLUBED) 132 mg/dL 74-106 H Performed by certified cream separator operator at [facility] PROTHROMBIN [id number] 13:26:00* Test Item Value Reference Range Interpretation Comments PROTHROMBIN TIME PATIENT (test code = PTP) 12.1 seconds 9.0-14.0 N INTERNATIONAL NORMAL RATIO (test code = INR) 1.0 0.8-1.2 N The therapeutic range for oral anticoagulant therapy formost indications is an international normalized ratio (INR)of between 2.0 and 3.0. The recommended therapeutic INRrange for various clinical situations is listed below: Clinical Situation INR range Pulmonary e mbolism treatment (2.0-3.0)Venous thrombosis treatmentVenous thrombosis prophylaxis (high risk surgery)Prevention of systemic embolism from: Acute myocardial infarction Valvular heart disease Atrial fibrillation Mechanical prosthetic heart valves (2.5-3.5) IS PATIENT ON ANTICOAGULANTS? YLIST ANTICOAGULANTS COUMADINBASIC METABOLIC [id number] 10:15:00* Test Item Value Reference Range Interpretation Comments SODIUM (test code = NA) 138 mmol/L 136-145 N POTASSIUM (test code = K) 4.9 mmol/L 3.5-5.1 N CHLORIDE (test code = CL) 101.0 mmol/L 98-107 N CARBON DIOXIDE (test code = CO2) 24.0 mmol/L 21-32 N ANION GAP (test code = GAP) 17.9 10-20 N GLUCOSE (test code = GLU) 214 mg/dL 74-106 H BLOOD UREA NITROGEN (test code = BUN) 65 mg/dL 7-18 H GLOMERULAR FILTRATION RATE (test code = GFR) 6 mL/min >=60 Estimated GFR by using Modified MDRD formula.Chronic kidney disease is defined as either kidney damageor GFR <60 mL/min/1.73 m2 for >3 months. CREATININE (test code = CREAT) 8.40 mg/dL 0.7-1.3 H BUN/CREATININE RATIO (test code = BUN/CREA) 7.7 10-20 L CALCIUM (test code = CA) 8.7 mg/dL 8.5-10.1 N PT HAD DOUBLE LIMB ALERT NURSE TRYING TO DRAW FROM PTLEG/FOOT NURSE [id number] 29 V.LAB.AL 11/18/18 0830CBC W/AUTO [id number] 09:57:00* Test Item Value Reference Range Interpretation Comments WHITE BLOOD CELL (test code = WBC) 11.8 K/mm3 4.5-12.5 N RED BLOOD CELL (test code = RBC) 2.67 mill/mm3 4.0-5.8 L HEMOGLOBIN (test code = HGB) 8.4 gram/dL 13.0-17.5 L HEMATOCRIT (test code = HCT) 26.8 % 42.0-52.0 L MEAN CELL VOLUME (test code = MCV) 100.4 fL 80-98 H MEAN CELL HGB (test code = MCH) 31.5 picogram 27.0-33.0 N MEAN CELL HGB CONCETRATION (test code = MCHC) 31.3 gram/dL 33.0-36. 0 L RED CELL DISTRIBUTION WIDTH (test code = RDW) 14.9 % 11.6-16. 2 N RED CELL DISTRIBUTION WIDTH SD (test code = RDW-SD) 54.4 fL 37 .0-51.0 H PLATELET COUNT (test code = PLT) 169 K/mm3 150-450 N MEAN PLATELET VOLUME (test code = MPV) 9.2 fL 6.7-11.0 N NEUTROPHIL % (test code = NT%) 76.9 % 39.0-69.0 H IMMATURE GRANULOCYTE % (test code = IG%) 0.9 % 0.0-5.0 N LYMPHOCYTE % (test code = LY%) 10.9 % 25.0-55.0 L MONOCYTE % (test code = MO%) 8.3 % 0.0-10.0 N EOSINOPHIL % (test code = EO%) 2.6 % 0.0-5.0 N BASOPHIL % (test code = BA%) 0.4 % 0.0-1.0 N NUCLEATED RBC % (test code = NRBC%) 0.0 % 0-0 N NEUTROPHIL # (test code = NT#) 9.05 K/mm3 1.8-7.7 H IMMATURE GRANULOCYTE # (test code = IG#) 0.10 x10 3/uL 0-0.03 H LYMPHOCYTE # (test code = LY#) 1.28 K/mm3 1.0-5.0 N MONOCYTE # (test code = MO#) 0.98 K/mm3 0-0.8 H EOSINOPHIL # (test code = EO#) 0.30 K/mm3 0.0-0.5 N BASOPHIL # (test code = BA#) 0.05 K/mm3 0.0-0.2 N NUCLEATED RBC # (test code = NRBC#) 0.00 K/mm3 0.0-0.1 N [id number] 09:09:00* Test Item Value Reference Range Interpretation Comments GLUBED (test code = GLUBED) 184 mg/dL 74-106 H Performed by certified cream separator operator at [facility] [id number] 20:18:00* Test Item Value Reference Range Interpretation Comments GLUBED (test code = GLUBED) 73 mg/dL 74-106 L Performed by certified cream separator operator at [facility] [id number] 16:55:00* Test Item Value Reference Range Interpretation Comments GLUBED (test code = GLUBED) 134 mg/dL 74-106 H Performed by certified cream separator operator at [facility] PROTHROMBIN [id number] 14:48:00* Test Item Value Reference Range Interpretation Comments PROTHROMBIN TIME PATIENT (test code = PTP) 12.1 seconds 9.0-14.0 N INTERNATIONAL NORMAL RATIO (test code = INR) 1.0 0.8-1.2 N The therapeutic range for oral anticoagulant therapy formost indications is an international normalized ratio (INR)of between 2.0 and 3.0. The recommended therapeutic INRrange for various clinical situations is listed below: Clinical Situation INR range Pulmonary e mbolism treatment (2.0-3.0)Venous thrombosis treatmentVenous thrombosis prophylaxis (high risk surgery)Prevention of systemic embolism from: Acute myocardial infarction Valvular heart disease Atrial fibrillation Mechanical prosthetic heart valves (2.5-3.5) PT DOUBLE LIMB ALERT IS PATIENT ON ANTICOAGULANTS? YLIST ANTICOAGULANTS HEPA RIN COUMADINCBC W/AUTO [id number] 14:26:00* Test Item Value Reference Range Interpretation Comments WHITE BLOOD CELL (test code = WBC) 11.1 K/mm3 4.5-12.5 N RED BLOOD CELL (test code = RBC) 2.81 mill/mm3 4.0-5.8 L HEMOGLOBIN (test code = HGB) 8.8 gram/dL 13.0-17.5 L HEMATOCRIT (test code = HCT) 28.7 % 42.0-52.0 L MEAN CELL VOLUME (test code = MCV) 102.1 fL 80-98 H MEAN CELL HGB (test code = MCH) 31.3 picogram 27.0-33.0 N MEAN CELL HGB CONCETRATION (test code = MCHC) 30.7 gram/dL 33.0-36. 0 L RED CELL DISTRIBUTION WIDTH (test code = RDW) 14.9 % 11.6-16. 2 N RED CELL DISTRIBUTION WIDTH SD (test code = RDW-SD) 55.5 fL 37 .0-51.0 H PLATELET COUNT (test code = PLT) 150 K/mm3 150-450 N MEAN PLATELET VOLUME (test code = MPV) 10.0 fL 6.7-11.0 N NEUTROPHIL % (test code = NT%) 73.4 % 39.0-69.0 H IMMATURE GRANULOCYTE % (test code = IG%) 0.8 % 0.0-5.0 N LYMPHOCYTE % (test code = LY%) 12.6 % 25.0-55.0 L MONOCYTE % (test code = MO%) 9.3 % 0.0-10.0 N EOSINOPHIL % (test code = EO%) 3.1 % 0.0-5.0 N BASOPHIL % (test code = BA%) 0.8 % 0.0-1.0 N NUCLEATED RBC % (test code = NRBC%) 0.0 % 0-0 N NEUTROPHIL # (test code = NT#) 8.12 K/mm3 1.8-7.7 H IMMATURE GRANULOCYTE # (test code = IG#) 0.09 x10 3/uL 0-0.03 H LYMPHOCYTE # (test code = LY#) 1.39 K/mm3 1.0-5.0 N MONOCYTE # (test code = MO#) 1.03 K/mm3 0-0.8 H EOSINOPHIL # (test code = EO#) 0.34 K/mm3 0.0-0.5 N BASOPHIL # (test code = BA#) 0.09 K/mm3 0.0-0.2 N NUCLEATED RBC # (test code = NRBC#) 0.00 K/mm3 0.0-0.1 N DOUBLE LIMB ALERT AND PT NOT IN ROOM. CANDICE TANG.RP108/18/19 1034GLUBED 2018-11-17 12:41:00* Test Item Value Reference Range Interpretation Comments GLUBED (test code = GLUBED) 137 mg/dL 74-106 H Performed by certified cream separator operator at [facility] [id number] 12:28:00* Test Item Value Reference Range Interpretation Comments GLUBED (test code = GLUBED) 159 mg/dL 74-106 H Performed by certified cream separator operator at [facility] [id number] 09:11:00* Test Item Value Reference Range Interpretation Comments GLUBED (test code = GLUBED) 117 mg/dL 74-106 H Performed by certified cream separator operator at [facility] [id number] 21:03:00* Test Item Value Reference Range Interpretation Comments GLUBED (test code = GLUBED) 72 mg/dL 74-106 L Performed by certified cream separator operator at [facility] [id number] 16:34:00* Test Item Value Reference Range Interpretation Comments GLUBED (test code = GLUBED) 155 mg/dL 74-106 H Performed by certified cream separator operator at [facility] [id number] 10:56:00* Test Item Value Reference Range Interpretation Comments GLUBED (test code = GLUBED) 390 mg/dL 74-106 H Performed by certified cream separator operator at [facility] [id number] 08:56:00* Test Item Value Reference Range Interpretation Comments GLUBED (test code = GLUBED) 328 mg/dL 74-106 H Performed by certified cream separator operator at [facility] [id number] 20:54:00* Test Item Value Reference Range Interpretation Comments GLUBED (test code = GLUBED) 185 mg/dL 74-106 H Performed by certified cream separator operator at [facility] [id number] 15:19:00* Test Item Value Reference Range Interpretation Comments GLUBED (test code = GLUBED) 346 mg/dL 74-106 H Performed by certified cream separator operator at [facility] BASIC METABOLIC [id number] 11:34:00* Test Item Value Reference Range Interpretation Comments SODIUM (test code = NA) 136 mmol/L 136-145 N POTASSIUM (test code = K) 6.3 mmol/L 3.5-5.1 [facility] called to CANDICE RUSS [id number] by [email or web address] 11/15/18 1133Critical results verified and read back by Nurse? Y CHLORIDE (test code = CL) 99.0 mmol/L 98-107 N CARBON DIOXIDE (test code = CO2) 23.0 mmol/L 21-32 N ANION GAP (test code = GAP) 20.3 10-20 H GLUCOSE (test code = GLU) 372 mg/dL 74-106 H BLOOD UREA NITROGEN (test code = BUN) 53 mg/dL 7-18 H GLOMERULAR FILTRATION RATE (test code = GFR) 7 mL/min >=60 Estimated GFR by using Modified MDRD formula.Chronic kidney disease is defined as either kidney damageor GFR <60 mL/min/1.73 m2 for >3 months. CREATININE (test code = CREAT) 7.90 mg/dL 0.7-1.3 H BUN/CREATININE RATIO (test code = BUN/CREA) 6.7 10-20 L CALCIUM (test code = CA) 8.4 mg/dL 8.5-10.1 L CBC W/AUTO [id number] 10:25:00* Test Item Value Reference Range Interpretation Comments WHITE BLOOD CELL (test code = WBC) 13.4 K/mm3 4.5-12.5 H RED BLOOD CELL (test code = RBC) 3.14 mill/mm3 4.0-5.8 L HEMOGLOBIN (test code = HGB) 9.8 gram/dL 13.0-17.5 L HEMATOCRIT (test code = HCT) 31.6 % 42.0-52.0 L MEAN CELL VOLUME (test code = MCV) 100.6 fL 80-98 H MEAN CELL HGB (test code = MCH) 31.2 picogram 27.0-33.0 N MEAN CELL HGB CONCETRATION (test code = MCHC) 31.0 gram/dL 33.0-36. 0 L RED CELL DISTRIBUTION WIDTH (test code = RDW) 14.7 % 11.6-16. 2 N RED CELL DISTRIBUTION WIDTH SD (test code = RDW-SD) 53.7 fL 37 .0-51.0 H PLATELET COUNT (test code = PLT) 203 K/mm3 150-450 N MEAN PLATELET VOLUME (test code = MPV) 9.8 fL 6.7-11.0 N NEUTROPHIL % (test code = NT%) 84.3 % 39.0-69.0 H IMMATURE GRANULOCYTE % (test code = IG%) 0.5 % 0.0-5.0 N LYMPHOCYTE % (test code = LY%) 7.6 % 25.0-55.0 L MONOCYTE % (test code = MO%) 7.2 % 0.0-10.0 N EOSINOPHIL % (test code = EO%) 0.0 % 0.0-5.0 N BASOPHIL % (test code = BA%) 0.4 % 0.0-1.0 N NUCLEATED RBC % (test code = NRBC%) 0.0 % 0-0 N NEUTROPHIL # (test code = NT#) 11.26 K/mm3 1.8-7.7 H IMMATURE GRANULOCYTE # (test code = IG#) 0.07 x10 3/uL 0-0.03 H LYMPHOCYTE # (test code = LY#) 1.02 K/mm3 1.0-5.0 N MONOCYTE # (test code = MO#) 0.96 K/mm3 0-0.8 H EOSINOPHIL # (test code = EO#) 0.00 K/mm3 0.0-0.5 N BASOPHIL # (test code = BA#) 0.05 K/mm3 0.0-0.2 N NUCLEATED RBC # (test code = NRBC#) 0.00 K/mm3 0.0-0.1 N MANUAL DIFF REQUIRED (test code = MDIFF) NO [id number] 08:51:00* Test Item Value Reference Range Interpretation Comments GLUBED (test code = GLUBED) 378 mg/dL 74-106 H Performed by certified cream separator operator at [facility] [id number] 20:28:00* Test Item Value Reference Range Interpretation Comments GLUBED (test code = GLUBED) 257 mg/dL 74-106 H Performed by certified cream separator operator at [facility] [id number] 12:25:00* Test Item Value Reference Range Interpretation Comments GLUBED (test code = GLUBED) 249 mg/dL 74-106 H Performed by certified cream separator operator at [facility] [id number] 09:05:00* Test Item Value Reference Range Interpretation Comments GLUBED (test code = GLUBED) 289 mg/dL 74-106 H Performed by certified cream separator operator at [facility] [id number] 06:41:00* Test Item Value Reference Range Interpretation Comments GLUBED (test code = GLUBED) 211 mg/dL 74-106 H Performed by certified cream separator operator at [facility] COMPREHENSIVE METABOLIC [id number] 06:15:00* Test Item Value Reference Range Interpretation Comments SODIUM (test code = NA) 140 mmol/L 136-145 N POTASSIUM (test code = K) 5.1 mmol/L 3.5-5.1 N CHLORIDE (test code = CL) 101.0 mmol/L 98-107 N CARBON DIOXIDE (test code = CO2) 28.0 mmol/L 21-32 N ANION GAP (test code = GAP) 16.1 10-20 N GLUCOSE (test code = GLU) 207 mg/dL 74-106 H BLOOD UREA NITROGEN (test code = BUN) 33 mg/dL 7-18 H GLOMERULAR FILTRATION RATE (test code = GFR) 9 mL/min >=60 Estimated GFR by using Modified MDRD formula.Chronic kidney disease is defined as either kidney damageor GFR <60 mL/min/1.73 m2 for >3 months. CREATININE (test code = CREAT) 6.20 mg/dL 0.7-1.3 H BUN/CREATININE RATIO (test code = BUN/CREA) 5.3 10-20 L TOTAL PROTEIN (test code = PROT) 7.5 gram/dL 6.4-8.2 N ALBUMIN (test code = ALB) 3.3 g/dL 3.4-5.0 L GLOBULIN (test code = GLOB) 4.2 gram/dL 2.7-4.2 N ALBUMIN/GLOBULIN RATIO (test code = A/G) 0.8 0.75-1.50 N CALCIUM (test code = CA) 8.9 mg/dL 8.5-10.1 N BILIRUBIN TOTAL (test code = BILT) 0.40 mg/dL 0.0-1.0 N SGOT/AST (test code = AST) 12 IUnit/L 15-37 L SGPT/ALT (test code = ALT) 22 IUnit/L 12-78 N ALKALINE PHOSPHATASE TOTAL (test code = ALKP) 97 IUnit/L 45-117 N Note change in reference range due to change in reagent. COMPREHENSIVE METABOLIC [id number] 06:05:00* Test Item Value Reference Range Interpretation Comments SODIUM (test code = NA) 140 mmol/L 136-145 N POTASSIUM (test code = K) 5.1 mmol/L 3.5-5.1 N CHLORIDE (test code = CL) 101.0 mmol/L 98-107 N CARBON DIOXIDE (test code = CO2) mmol/L 21-32 ANION GAP (test code = GAP) 10-20 GLUCOSE (test code = GLU) mg/dL 74-106 BLOOD UREA NITROGEN (test code = BUN) mg/dL 7-18 GLOMERULAR FILTRATION RATE (test code = GFR) mL/min >=60 CREATININE (test code = CREAT) mg/dL 0.7-1.3 BUN/CREATININE RATIO (test code = BUN/CREA) 10-20 TOTAL PROTEIN (test code = PROT) gram/dL 6.4-8.2 ALBUMIN (test code = ALB) g/dL 3.4-5.0 GLOBULIN (test code = GLOB) gram/dL 2.7-4.2 ALBUMIN/GLOBULIN RATIO (test code = A/G) 0.75-1.50 CALCIUM (test code = CA) mg/dL 8.5-10.1 BILIRUBIN TOTAL (test code = BILT) mg/dL 0.0-1.0 SGOT/AST (test code = AST) IUnit/L 15-37 SGPT/ALT (test code = ALT) IUnit/L 12-78 ALKALINE PHOSPHATASE TOTAL (test code = ALKP) IUnit/L 45-117 CBC W/AUTO [id number] 05:37:00* Test Item Value Reference Range Interpretation Comments WHITE BLOOD CELL (test code = WBC) 9.8 K/mm3 4.5-12.5 N RED BLOOD CELL (test code = RBC) 3.26 mill/mm3 4.0-5.8 L HEMOGLOBIN (test code = HGB) 10.0 gram/dL 13.0-17.5 L HEMATOCRIT (test code = HCT) 32.6 % 42.0-52.0 L MEAN CELL VOLUME (test code = MCV) 100.0 fL 80-98 H MEAN CELL HGB (test code = MCH) 30.7 picogram 27.0-33.0 N MEAN CELL HGB CONCETRATION (test code = MCHC) 30.7 gram/dL 33.0-36. 0 L RED CELL DISTRIBUTION WIDTH (test code = RDW) 15.1 % 11.6-16. 2 N RED CELL DISTRIBUTION WIDTH SD (test code = RDW-SD) 55.2 fL 37 .0-51.0 H PLATELET COUNT (test code = PLT) 182 K/mm3 150-450 N MEAN PLATELET VOLUME (test code = MPV) 9.4 fL 6.7-11.0 N NEUTROPHIL % (test code = NT%) 68.3 % 39.0-69.0 N IMMATURE GRANULOCYTE % (test code = IG%) 0.7 % 0.0-5.0 N LYMPHOCYTE % (test code = LY%) 16.8 % 25.0-55.0 L MONOCYTE % (test code = MO%) 10.1 % 0.0-10.0 H EOSINOPHIL % (test code = EO%) 3.3 % 0.0-5.0 N BASOPHIL % (test code = BA%) 0.8 % 0.0-1.0 N NUCLEATED RBC % (test code = NRBC%) 0.0 % 0-0 N NEUTROPHIL # (test code = NT#) 6.68 K/mm3 1.8-7.7 N IMMATURE GRANULOCYTE # (test code = IG#) 0.07 x10 3/uL 0-0.03 H LYMPHOCYTE # (test code = LY#) 1.64 K/mm3 1.0-5.0 N MONOCYTE # (test code = MO#) 0.99 K/mm3 0-0.8 H EOSINOPHIL # (test code = EO#) 0.32 K/mm3 0.0-0.5 N BASOPHIL # (test code = BA#) 0.08 K/mm3 0.0-0.2 N NUCLEATED RBC # (test code = NRBC#) 0.00 K/mm3 0.0-0.1 N MANUAL DIFF REQUIRED (test code = MDIFF) NO [id number] 20:58:00* Test Item Value Reference Range Interpretation Comments GLUBED (test code = GLUBED) 220 mg/dL 74-106 H Performed by certified cream separator operator at [facility] [id number] 17:16:00* Test Item Value Reference Range Interpretation Comments GLUBED (test code = GLUBED) 297 mg/dL 74-106 H Performed by certified cream separator operator at [facility] - SP FLUORO GUID CTRL ACC [id number] 12:52:00 Name: ARY ALEJO [facility] : 1935 Age/S: 83 / M [address] [facility] Unit #: [id number] Loc: BARBARA Rapp [address] Phys: Wellington Pace MD Acct: [id number] Dis Date: Status: ADM IN PHONE #: [phone] Exam Date: 11/13/2018 0902 FAX #: [phone] Reason: / EXAMS: CPT CODE: [id number] SP FLUORO GUID CTRL ACC DEV [id number] Fluoro Time: 2 DAP (Gy m2): 5.974 Air Kerma (mGy): 16.04 EXAM: Removal of a tunneled hemodialysis catheter with fluoroscopic guidance; INFORMATION: Patient with end-stage renal disease. He status post recent insertion of a tunneled hemodialysis catheter via right IJ access. Has been referred for removal of a previously placed right femoral tunneled catheter. TECHNIQUE AND FINDINGS: Informed consent was obtained the patient was placed supine on the procedure table. Initial fluoroscopic imaging showed the tip of a right femoral tunneled hemodialysis catheter positioned at the level of L1. The patient's skin in the right groin was prepped and draped in the usual sterile fashion. The tunneled catheter was mobilized by blunt dissection with a hemostat and was then removed and hemostasis was promptly achieved. Final fluoroscopic imaging confirmed complete catheter removal. No complications. IMPRESSION: Uneventful removal of a no longer needed right femoral tunneled hemodialysis catheter. Fluoroscopy Time: 2 sec CAK : 16.04 mGy DAP : 5924 mGy sq cm at 1252 Reported and signed by: Primo Boothe M.D. CC: Wellington Pace MD Technologist: URIAH MARTÍNEZ [employer] Date/Time: 11/13/2018 (130) Maria T Orig Print D/T: S: 11/13/2018 (9312) PAGE 1 Signed Report [id number] 08:26:00* Test Item Value Reference Range Interpretation Comments GLUBED (test code = GLUBED) 206 mg/dL 74-106 H Performed by certified cream separator operator at [facility] BASIC METABOLIC [id number] 05:25:00* Test Item Value Reference Range Interpretation Comments SODIUM (test code = NA) 136 mmol/L 136-145 N POTASSIUM (test code = K) 5.0 mmol/L 3.5-5.1 N CHLORIDE (test code = CL) 100.0 mmol/L 98-107 N CARBON DIOXIDE (test code = CO2) 27.0 mmol/L 21-32 N ANION GAP (test code = GAP) 14.0 10-20 N GLUCOSE (test code = GLU) 240 mg/dL 74-106 H BLOOD UREA NITROGEN (test code = BUN) 51 mg/dL 7-18 H GLOMERULAR FILTRATION RATE (test code = GFR) 6 mL/min >=60 Estimated GFR by using Modified MDRD formula.Chronic kidney disease is defined as either kidney damageor GFR <60 mL/min/1.73 m2 for >3 months. CREATININE (test code = CREAT) 8.20 mg/dL 0.7-1.3 H BUN/CREATININE RATIO (test code = BUN/CREA) 6.2 10-20 L CALCIUM (test code = CA) 8.3 mg/dL 8.5-10.1 L BASIC METABOLIC [id number] 05:21:00* Test Item Value Reference Range Interpretation Comments SODIUM (test code = NA) 136 mmol/L 136-145 N POTASSIUM (test code = K) 5.0 mmol/L 3.5-5.1 N CHLORIDE (test code = CL) 100.0 mmol/L 98-107 N CARBON DIOXIDE (test code = CO2) mmol/L 21-32 ANION GAP (test code = GAP) 10-20 GLUCOSE (test code = GLU) mg/dL 74-106 BLOOD UREA NITROGEN (test code = BUN) mg/dL 7-18 GLOMERULAR FILTRATION RATE (test code = GFR) mL/min >=60 CREATININE (test code = CREAT) mg/dL 0.7-1.3 BUN/CREATININE RATIO (test code = BUN/CREA) 10-20 CALCIUM (test code = CA) mg/dL 8.5-10.1 CBC W/AUTO [id number] 05:06:00* Test Item Value Reference Range Interpretation Comments WHITE BLOOD CELL (test code = WBC) 10.1 K/mm3 4.5-12.5 N RED BLOOD CELL (test code = RBC) 2.87 mill/mm3 4.0-5.8 L HEMOGLOBIN (test code = HGB) 9.0 gram/dL 13.0-17.5 L HEMATOCRIT (test code = HCT) 28.5 % 42.0-52.0 L MEAN CELL VOLUME (test code = MCV) 99.3 fL 80-98 H MEAN CELL HGB (test code = MCH) 31.4 picogram 27.0-33.0 N MEAN CELL HGB CONCETRATION (test code = MCHC) 31.6 gram/dL 33.0-36. 0 L RED CELL DISTRIBUTION WIDTH (test code = RDW) 15.1 % 11.6-16. 2 N RED CELL DISTRIBUTION WIDTH SD (test code = RDW-SD) 54.6 fL 37 .0-51.0 H PLATELET COUNT (test code = PLT) 152 K/mm3 150-450 N MEAN PLATELET VOLUME (test code = MPV) 9.6 fL 6.7-11.0 N NEUTROPHIL % (test code = NT%) 71.5 % 39.0-69.0 H IMMATURE GRANULOCYTE % (test code = IG%) 0.9 % 0.0-5.0 N LYMPHOCYTE % (test code = LY%) 13.1 % 25.0-55.0 L MONOCYTE % (test code = MO%) 10.6 % 0.0-10.0 H EOSINOPHIL % (test code = EO%) 3.1 % 0.0-5.0 N BASOPHIL % (test code = BA%) 0.8 % 0.0-1.0 N NUCLEATED RBC % (test code = NRBC%) 0.0 % 0-0 N NEUTROPHIL # (test code = NT#) 7.20 K/mm3 1.8-7.7 N IMMATURE GRANULOCYTE # (test code = IG#) 0.09 x10 3/uL 0-0.03 H LYMPHOCYTE # (test code = LY#) 1.32 K/mm3 1.0-5.0 N MONOCYTE # (test code = MO#) 1.07 K/mm3 0-0.8 H EOSINOPHIL # (test code = EO#) 0.31 K/mm3 0.0-0.5 N BASOPHIL # (test code = BA#) 0.08 K/mm3 0.0-0.2 N NUCLEATED RBC # (test code = NRBC#) 0.00 K/mm3 0.0-0.1 N [id number] 21:59:00* Test Item Value Reference Range Interpretation Comments GLUBED (test code = GLUBED) 119 mg/dL 74-106 H Performed by certified cream separator operator at [facility] [id number] 21:59:00* Test Item Value Reference Range Interpretation Comments GLUBED (test code = GLUBED) 79 mg/dL 74-106 N Performed by certified cream separator operator at [facility] [id number] 16:31:00* Test Item Value Reference Range Interpretation Comments GLUBED (test code = GLUBED) 176 mg/dL 74-106 H Performed by certified cream separator operator at [facility] [id number] 12:04:00* Test Item Value Reference Range Interpretation Comments GLUBED (test code = GLUBED) 272 mg/dL 74-106 H Performed by certified cream separator operator at [facility] [id number] 08:16:00* Test Item Value Reference Range Interpretation Comments GLUBED (test code = GLUBED) 115 mg/dL 74-106 H Performed by certified cream separator operator at [facility] [id number] 23:15:00* Test Item Value Reference Range Interpretation Comments GLUBED (test code = GLUBED) 115 mg/dL 74-106 H Performed by certified cream separator operator at [facility] [id number] 21:26:00* Test Item Value Reference Range Interpretation Comments GLUBED (test code = GLUBED) 56 mg/dL 74-106 L Performed by certified cream separator operator at [facility] [id number] 15:57:00* Test Item Value Reference Range Interpretation Comments GLUBED (test code = GLUBED) 212 mg/dL 74-106 H Performed by certified cream separator operator at [facility] [id number] 12:52:00* Test Item Value Reference Range Interpretation Comments GLUBED (test code = GLUBED) 192 mg/dL 74-106 H Performed by certified cream separator operator at [facility] BASIC METABOLIC [id number] 09:11:00* Test Item Value Reference Range Interpretation Comments SODIUM (test code = NA) 137 mmol/L 136-145 N POTASSIUM (test code = K) 5.3 mmol/L 3.5-5.1 H CHLORIDE (test code = CL) 100.0 mmol/L 98-107 N CARBON DIOXIDE (test code = CO2) 27.0 mmol/L 21-32 N ANION GAP (test code = GAP) 15.3 10-20 N GLUCOSE (test code = GLU) 219 mg/dL 74-106 H BLOOD UREA NITROGEN (test code = BUN) 49 mg/dL 7-18 H GLOMERULAR FILTRATION RATE (test code = GFR) 7 mL/min >=60 Estimated GFR by using Modified MDRD formula.Chronic kidney disease is defined as either kidney damageor GFR <60 mL/min/1.73 m2 for >3 months. CREATININE (test code = CREAT) 7.90 mg/dL 0.7-1.3 H BUN/CREATININE RATIO (test code = BUN/CREA) 6.2 10-20 L CALCIUM (test code = CA) 8.9 mg/dL 8.5-10.1 N CALLED DIALYSIS, THEY WILL DRAW V.LAB.CS1 11/11/18 0823BASIC METABOLIC PANEL 2018-11-11 09:06:00* Test Item Value Reference Range Interpretation Comments SODIUM (test code = NA) 137 mmol/L 136-145 N POTASSIUM (test code = K) 5.3 mmol/L 3.5-5.1 H CHLORIDE (test code = CL) 100.0 mmol/L 98-107 N CARBON DIOXIDE (test code = CO2) mmol/L 21-32 ANION GAP (test code = GAP) 10-20 GLUCOSE (test code = GLU) mg/dL 74-106 BLOOD UREA NITROGEN (test code = BUN) mg/dL 7-18 GLOMERULAR FILTRATION RATE (test code = GFR) mL/min >=60 CREATININE (test code = CREAT) mg/dL 0.7-1.3 BUN/CREATININE RATIO (test code = BUN/CREA) 10-20 CALCIUM (test code = CA) mg/dL 8.5-10.1 CALLED DIALYSIS, THEY WILL DRAW V.LAB.CS1 11/11/18 [id number] 08:47:00 * Test Item Value Reference Range Interpretation Comments GLUBED (test code = GLUBED) 218 mg/dL 74-106 H Performed by certified cream separator operator at [facility] CBC W/AUTO [id number] 08:38:00* Test Item Value Reference Range Interpretation Comments WHITE BLOOD CELL (test code = WBC) 10.5 K/mm3 4.5-12.5 N RED BLOOD CELL (test code = RBC) 2.92 mill/mm3 4.0-5.8 L HEMOGLOBIN (test code = HGB) 9.1 gram/dL 13.0-17.5 L HEMATOCRIT (test code = HCT) 29.5 % 42.0-52.0 L MEAN CELL VOLUME (test code = MCV) 101.0 fL 80-98 H MEAN CELL HGB (test code = MCH) 31.2 picogram 27.0-33.0 N MEAN CELL HGB CONCETRATION (test code = MCHC) 30.8 gram/dL 33.0-36. 0 L RED CELL DISTRIBUTION WIDTH (test code = RDW) 15.3 % 11.6-16. 2 N RED CELL DISTRIBUTION WIDTH SD (test code = RDW-SD) 57.1 fL 37 .0-51.0 H PLATELET COUNT (test code = PLT) 154 K/mm3 150-450 N MEAN PLATELET VOLUME (test code = MPV) 9.2 fL 6.7-11.0 N NEUTROPHIL % (test code = NT%) 71.5 % 39.0-69.0 H IMMATURE GRANULOCYTE % (test code = IG%) 1.2 % 0.0-5.0 N LYMPHOCYTE % (test code = LY%) 13.4 % 25.0-55.0 L MONOCYTE % (test code = MO%) 10.1 % 0.0-10.0 H EOSINOPHIL % (test code = EO%) 2.9 % 0.0-5.0 N BASOPHIL % (test code = BA%) 0.9 % 0.0-1.0 N NUCLEATED RBC % (test code = NRBC%) 0.0 % 0-0 N NEUTROPHIL # (test code = NT#) 7.54 K/mm3 1.8-7.7 N IMMATURE GRANULOCYTE # (test code = IG#) 0.13 x10 3/uL 0-0.03 H LYMPHOCYTE # (test code = LY#) 1.41 K/mm3 1.0-5.0 N MONOCYTE # (test code = MO#) 1.06 K/mm3 0-0.8 H EOSINOPHIL # (test code = EO#) 0.31 K/mm3 0.0-0.5 N BASOPHIL # (test code = BA#) 0.09 K/mm3 0.0-0.2 N NUCLEATED RBC # (test code = NRBC#) 0.00 K/mm3 0.0-0.1 N MANUAL DIFF REQUIRED (test code = MDIFF) NO CALLED DIALYSIS, THEY WILL DRAW V.[email or web address].[email or web address] 11/11/18 0823PROTHROMBIN TIME 2018-11-11 08:05:00* Test Item Value Reference Range Interpretation Comments PROTHROMBIN TIME PATIENT (test code = PTP) 12.5 seconds 9.0-14.0 N INTERNATIONAL NORMAL RATIO (test code = INR) 1.1 0.8-1.2 N The therapeutic range for oral anticoagulant therapy formost indications is an international normalized ratio (INR)of between 2.0 and 3.0. The recommended therapeutic INRrange for various clinical situations is listed below: Clinical Situation INR range Pulmonary e mbolism treatment (2.0-3.0)Venous thrombosis treatmentVenous thrombosis prophylaxis (high risk surgery)Prevention of systemic embolism from: Acute myocardial infarction Valvular heart disease Atrial fibrillation Mechanical prosthetic heart valves (2.5-3.5) IS PATIENT ON ANTICOAGULANTS? NTHROMBOPLASTIN TIME [id number] 08:05:00* Test Item Value Reference Range Interpretation Comments THROMBOPLASTIN TIME PARTIAL (test code = PTT) 32.0 seconds 25.0-36. 5 N IS PATIENT ON ANTICOAGULANTS? [id number] 20:42:00* Test Item Value Reference Range Interpretation Comments GLUBED (test code = GLUBED) 119 mg/dL 74-106 H Performed by certified cream separator operator at [facility] [id number] 17:31:00* Test Item Value Reference Range Interpretation Comments GLUBED (test code = GLUBED) 74 mg/dL 74-106 N Performed by certified cream separator operator at [facility] [id number] 17:31:00* Test Item Value Reference Range Interpretation Comments GLUBED (test code = GLUBED) 63 mg/dL 74-106 L Performed by certified cream separator operator at [facility] [id number] 12:58:00* Test Item Value Reference Range Interpretation Comments GLUBED (test code = GLUBED) 219 mg/dL 74-106 H Performed by certified cream separator operator at [facility] [id number] 08:23:00* Test Item Value Reference Range Interpretation Comments GLUBED (test code = GLUBED) 176 mg/dL 74-106 H Performed by certified cream separator operator at [facility] BASIC METABOLIC [id number] 06:37:00* Test Item Value Reference Range Interpretation Comments SODIUM (test code = NA) 139 mmol/L 136-145 N POTASSIUM (test code = K) 4.9 mmol/L 3.5-5.1 N CHLORIDE (test code = CL) 102.0 mmol/L 98-107 N CARBON DIOXIDE (test code = CO2) 28.0 mmol/L 21-32 N ANION GAP (test code = GAP) 13.9 10-20 N GLUCOSE (test code = GLU) 151 mg/dL 74-106 H BLOOD UREA NITROGEN (test code = BUN) 30 mg/dL 7-18 H GLOMERULAR FILTRATION RATE (test code = GFR) 9 mL/min >=60 Estimated GFR by using Modified MDRD formula.Chronic kidney disease is defined as either kidney damageor GFR <60 mL/min/1.73 m2 for >3 months. CREATININE (test code = CREAT) 5.80 mg/dL 0.7-1.3 H BUN/CREATININE RATIO (test code = BUN/CREA) 5.2 10-20 L CALCIUM (test code = CA) 9.0 mg/dL 8.5-10.1 N BASIC METABOLIC [id number] 06:34:00* Test Item Value Reference Range Interpretation Comments SODIUM (test code = NA) 139 mmol/L 136-145 N POTASSIUM (test code = K) 4.9 mmol/L 3.5-5.1 N CHLORIDE (test code = CL) 102.0 mmol/L 98-107 N CARBON DIOXIDE (test code = CO2) mmol/L 21-32 ANION GAP (test code = GAP) 10-20 GLUCOSE (test code = GLU) mg/dL 74-106 BLOOD UREA NITROGEN (test code = BUN) mg/dL 7-18 GLOMERULAR FILTRATION RATE (test code = GFR) mL/min >=60 CREATININE (test code = CREAT) mg/dL 0.7-1.3 BUN/CREATININE RATIO (test code = BUN/CREA) 10-20 CALCIUM (test code = CA) mg/dL 8.5-10.1 CBC W/AUTO [id number] 06:13:00* Test Item Value Reference Range Interpretation Comments WHITE BLOOD CELL (test code = WBC) 9.4 K/mm3 4.5-12.5 N RED BLOOD CELL (test code = RBC) 3.00 mill/mm3 4.0-5.8 L HEMOGLOBIN (test code = HGB) 9.4 gram/dL 13.0-17.5 L HEMATOCRIT (test code = HCT) 30.3 % 42.0-52.0 L MEAN CELL VOLUME (test code = MCV) 101.0 fL 80-98 H MEAN CELL HGB (test code = MCH) 31.3 picogram 27.0-33.0 N MEAN CELL HGB CONCETRATION (test code = MCHC) 31.0 gram/dL 33.0-36. 0 L RED CELL DISTRIBUTION WIDTH (test code = RDW) 15.7 % 11.6-16. 2 N RED CELL DISTRIBUTION WIDTH SD (test code = RDW-SD) 58.1 fL 37 .0-51.0 H PLATELET COUNT (test code = PLT) 149 K/mm3 150-450 L MEAN PLATELET VOLUME (test code = MPV) 9.4 fL 6.7-11.0 N NEUTROPHIL % (test code = NT%) 69.6 % 39.0-69.0 H IMMATURE GRANULOCYTE % (test code = IG%) 1.3 % 0.0-5.0 N LYMPHOCYTE % (test code = LY%) 14.2 % 25.0-55.0 L MONOCYTE % (test code = MO%) 11.4 % 0.0-10.0 H EOSINOPHIL % (test code = EO%) 2.9 % 0.0-5.0 N BASOPHIL % (test code = BA%) 0.6 % 0.0-1.0 N NUCLEATED RBC % (test code = NRBC%) 0.0 % 0-0 N NEUTROPHIL # (test code = NT#) 6.52 K/mm3 1.8-7.7 N IMMATURE GRANULOCYTE # (test code = IG#) 0.12 x10 3/uL 0-0.03 H LYMPHOCYTE # (test code = LY#) 1.33 K/mm3 1.0-5.0 N MONOCYTE # (test code = MO#) 1.07 K/mm3 0-0.8 H EOSINOPHIL # (test code = EO#) 0.27 K/mm3 0.0-0.5 N BASOPHIL # (test code = BA#) 0.06 K/mm3 0.0-0.2 N NUCLEATED RBC # (test code = NRBC#) 0.00 K/mm3 0.0-0.1 N MANUAL DIFF REQUIRED (test code = MDIFF) NO [id number] 20:43:00* Test Item Value Reference Range Interpretation Comments GLUBED (test code = GLUBED) 282 mg/dL 74-106 H Performed by certified cream separator operator at [facility] [id number] 17:42:00* Test Item Value Reference Range Interpretation Comments GLUBED (test code = GLUBED) 175 mg/dL 74-106 H Performed by certified cream separator operator at [facility] PROTHROMBIN [id number] 15:25:00* Test Item Value Reference Range Interpretation Comments PROTHROMBIN TIME PATIENT (test code = PTP) 12.2 seconds 9.0-14.0 N INTERNATIONAL NORMAL RATIO (test code = INR) 1.0 0.8-1.2 N The therapeutic range for oral anticoagulant therapy formost indications is an international normalized ratio (INR)of between 2.0 and 3.0. The recommended therapeutic INRrange for various clinical situations is listed below: Clinical Situation INR range Pulmonary e mbolism treatment (2.0-3.0)Venous thrombosis treatmentVenous thrombosis prophylaxis (high risk surgery)Prevention of systemic embolism from: Acute myocardial infarction Valvular heart disease Atrial fibrillation Mechanical prosthetic heart valves (2.5-3.5) IS PATIENT ON ANTICOAGULANTS? NTHROMBOPLASTIN TIME [id number] 15:25:00* Test Item Value Reference Range Interpretation Comments THROMBOPLASTIN TIME PARTIAL (test code = PTT) 30.7 seconds 25.0-36. 5 N IS PATIENT ON ANTICOAGULANTS? N- US GUIDANCE VASC [id number] 13:18:00 Name: ARY ALEJO [facility] : 1935 Age/S: 83 / M [address] Unit #: [id number] Loc: [place] [address] Phys: Maxime Pace MD Acct: [id number] Di s Date: Status: ADM IN PHONE #: [phone] Exam Date: 11/09/2018 1211 FAX #: [phone] Reason: / EXAMS: CPT CODE: [id number] US GUIDANCE VASC ACCESS [id number] Fluoro Time: DAP (Gy m2): Air Kerma (mGy): EXAM: Insertion of a tunneled hemodial ysis catheter with sonographic and fluoroscopic guidance; conscious sedati on; INFORMATION: Patient with end-stage renal disease; malfunction ing left arm AV fistula and occluded femoral hemodialysis catheter. TECHNIQUE AND FINDINGS: Conscious sedation start time: 1242 hours; Completion time: 1215 hours; Under physician supervision 1 mg of Ve rsed and 25 mcg of fentanyl were administered intravenously for conscious sedation. The patient's heart rate, blood pressure and pulse oximetry were continuously monitored by a trained registered nurse. Physician fac e-to-face sedation time was 13 minutes. After obtaining informed c onsent, the patient was placed supine on the procedure table. Initial fluo roscopic evaluation showed a nerve stimulator device implanted in the late ral right infraclavicular region with wires extending into the neck region . Sonographic evaluation of the right neck showed a patent and compr essible right internal jugular vein. Sonographic images were stored in PAC S. The patient's skin in the right neck and upper chest region was p repped and draped in the usual sterile fashion. Xylocaine was administered and using real-time sonographic guidance the right IJ was accessed with a micropuncture system, followed by insertion of an 035 guidewire. Sequenti al dilatation was performed under fluoroscopic guidance and a 15 [place] pe el-away sheath was inserted. A subcutaneous tunnel was then created medial to the implanted battery device and a tunneled hemodialysis catheter was inserted. It was positioned with its tip in the SVC. Good blood retu rn was noticed; the catheter was sutured to the skin and flushed with hepa rinized saline. No complications. IMPRESSION: Succ essful insertion of a tunneled hemodialysis catheter via right IJ access , using sonographic and fluoroscopic guidance. The dialysis catheter is ready for use. Fluoroscopy Time: 36 sec CAK : 19.76 m Gy DAP : 8400 mGy sq cm PAGE 1 Signed Rep ort (CONTINUED) Name: ARY ALEJO [facility] : 1935 Age/S: 83 / M [address] Unit #: [id number] Loc: [place] [address] Phys: Wellington Pace MD Acct: [id number] Dis Date: Status: ADM IN PHONE #: [phone] Exam Date: 11/09/2018 1215 FAX #: [phone] Reason: / EXAMS: CPT CODE: [id number] US GUIDANCE VASC ACCESS [id number] Fluoro Time: DAP (Gy m2): Air Kerma (mGy): < Continued> at 1318 Reported and signed by: Primo Boothe M.D. CC: Wellington Pace MD Technologist: URIAH MARTÍNEZ [employer]LE HEARING OFFICER Trnscb Date/Time: 11/09/2018 (1318) Maria T Orig Print D/T: S: 11/09/2018 (0189) PAGE 2 Signed Report - SP FLUORO GUID CTRL ACC [id number] 13:18:00 Name: ARY ALEJO [facility] SP : 1935 Age/S: 83 / M [address] [facility] Unit #: [id number] Loc: [place] [address] Phys: Wellington Pace MD Acct: [id number] Dis Date: Status: ADM IN PHONE #: [phone] Exam Date: 11/09/20185 FAX #: [phone] Reason: / EXAMS: CPT CODE: [id number] SP FLUORO GUID CTRL ACC DEV [id number] Fluoro Time: 36 DAP (Gy m2): 8.400 Air Kerma (mGy): 19.76 EXAM: Insertion of a tunneled hemodialysis catheter with sonographic and fluoroscopic guidance; conscious sedation; INFORMATION: Patient with end-stage renal disease; malfunctioning left arm AV fistula and occluded femoral hemodialysis catheter. TECHNIQUE AND FINDINGS: Conscious sedation start time: 1242 hours; Completion time: 1215 hours; Under physician supervision 1 mg of Versed and 25 mcg of fentanyl were administered intravenously for conscious sedation. The patient's heart rate, blood pressure and pulse oximetry were continuously monitored by a trained registered nurse. Physician hdlu-oh-otsk sedation time was 13 minutes. After obtaining informed consent, the patient was placed supine on the procedure table. Initial fluoroscopic evaluation showed a nerve stimulator device implanted in the lateral right infraclavicular region with wires extending into the neck region. Sonographic evaluation of the right neck showed a patent and compressible right internal jugular vein. Sonographic images were stored in PACS. The patient's skin in the right neck and upper chest region was prepped and draped in the usual sterile fashion. Xylocaine was administered and using real-time sonographic guidance the right IJ was accessed with a micropuncture system, followed by insertion of an 035 guidewire. Sequenti al dilatation was performed under fluoroscopic guidance and a 15 [place] pe el-away sheath was inserted. A subcutaneous tunnel was then created medial to the implanted battery device and a tunneled hemodialysis catheter was inserted. It was positioned with its tip in the SVC. Good blood retu rn was noticed; the catheter was sutured to the skin and flushed with hepa rinized saline. No complications. IMPRESSION: Succ essful insertion of a tunneled hemodialysis catheter via right IJ access , using sonographic and fluoroscopic guidance. The dialysis catheter is ready for use. Fluoroscopy Time: 36 sec CAK : 19.76 m Gy DAP : 8400 mGy sq cm PAGE 1 Signed Rep ort (CONTINUED) Name: ARY ALEJO [facility] : 1935 Age/S: 83 / M [address] Unit #: [id number] Loc: [place], [place] [address] Phys: Wellington Pace MD Acct: [id number] Dis Date: Status: ADM IN PHONE #: [phone] Exam Date: 11/09/2018 1215 FAX #: [phone] Reason: / EXAMS: CPT CODE: [id number] SP FLUORO GUID CTRL ACC DEV [id number] Fluoro Time: 36 DAP (Gy m2): 8.400 Air Kerma (mGy): 19.76 < Continued> at 1318 Reported and signed by: Primo Boothe M.D. CC: Wellington Pace MD Technologist: URIAH MARTÍNEZ [employer] HEARING OFFICER Trnscb Date/Time: 11/09/2018 (0584) Maria T Orig Print D/T: S: 11/09/2018 (0553) PAGE 2 Signed Report - XR CHEST 1 [id number] 12:31:00 FAX: Wellington Hercules MD [phone] [place]: St: ADM Name: ARY CASH [facility] : [birth year] Age/S: 83/M [address] [facility] Unit #: [id number] Loc: V.30[address] [place] [address] Phys: Primo Boothe MD Acct: [id number] Dis Date: Status: ADM IN PHONE #: [phone] Exam Date: 11/09/2018 1226 FAX #: [phone] Reason: ESRD; st.p. R IJ PC; EXAMS: CPT CODE: [id number] XR CHEST 1 V [id number] EXAM: Chest x-ray, one view; INFORMATION: End-stage renal disease, hyperkalemia; malfunctioning dialysis fistula and occluded femoral dialysis catheter; status post ins ertion of a PermCath via right IJ access; IMPRESSION: 1. The tip of the right IJ tunneled hemodialysis catheter is positioned in the SVC. 2. No evidence of a pneumothorax; 3. No evidence of pu lmonary edema or other acute abnormalities. 4. The heart is normal in si ze. 5. Aortic calcifications. The hemodialysis cathete r is ready for use. at 1231 Reported and signed by: Primo Boothe M.D. CC: Wellington Pace MD Technologist: Mylene Cisneros RT(R); HELEN GARZA RT(R) Trnscrd Date/Time/By: 11/09/2018 (8234) : By: Maria T Orig Print D/T: S: 11/09/2018 (5825) PAGE 1 Signed Report [id number] 12:04:00* Test Item Value Reference Range Interpretation Comments GLUBED (test code = GLUBED) 353 mg/dL 74-106 H Performed by certified cream separator operator at [facility] AG HEPAT B [id number] 10:13:00* Test Item Value Reference Range Interpretation Comments AG HEPAT B SURF (test code = HBSAG) Nonreactive Index Nonreactive COMPREHENSIVE METABOLIC [id number] 05:29:00* Test Item Value Reference Range Interpretation Comments SODIUM (test code = NA) 138 mmol/L 136-145 N POTASSIUM (test code = K) 5.4 mmol/L 3.5-5.1 H CHLORIDE (test code = CL) 98.0 mmol/L 98-107 N CARBON DIOXIDE (test code = CO2) 29.0 mmol/L 21-32 N ANION GAP (test code = GAP) 16.4 10-20 N GLUCOSE (test code = GLU) 275 mg/dL 74-106 H BLOOD UREA NITROGEN (test code = BUN) 49 mg/dL 7-18 H GLOMERULAR FILTRATION RATE (test code = GFR) 7 mL/min >=60 Estimated GFR by using Modified MDRD formula.Chronic kidney disease is defined as either kidney damageor GFR <60 mL/min/1.73 m2 for >3 months. CREATININE (test code = CREAT) 7.30 mg/dL 0.7-1.3 H BUN/CREATININE RATIO (test code = BUN/CREA) 6.7 10-20 L TOTAL PROTEIN (test code = PROT) 6.2 gram/dL 6.4-8.2 L ALBUMIN (test code = ALB) 3.0 g/dL 3.4-5.0 L GLOBULIN (test code = GLOB) 3.2 gram/dL 2.7-4.2 N ALBUMIN/GLOBULIN RATIO (test code = A/G) 0.9 0.75-1.50 N CALCIUM (test code = CA) 8.5 mg/dL 8.5-10.1 N BILIRUBIN TOTAL (test code = BILT) 0.40 mg/dL 0.0-1.0 N SGOT/AST (test code = AST) 9 IUnit/L 15-37 L SGPT/ALT (test code = ALT) 18 IUnit/L 12-78 N ALKALINE PHOSPHATASE TOTAL (test code = ALKP) 90 IUnit/L 45-117 N Note change in reference range due to change in reagent. COMPREHENSIVE METABOLIC [id number] 05:16:00* Test Item Value Reference Range Interpretation Comments SODIUM (test code = NA) 138 mmol/L 136-145 N POTASSIUM (test code = K) 5.4 mmol/L 3.5-5.1 H CHLORIDE (test code = CL) 98.0 mmol/L 98-107 N CARBON DIOXIDE (test code = CO2) mmol/L 21-32 ANION GAP (test code = GAP) 10-20 GLUCOSE (test code = GLU) mg/dL 74-106 BLOOD UREA NITROGEN (test code = BUN) mg/dL 7-18 GLOMERULAR FILTRATION RATE (test code = GFR) mL/min >=60 CREATININE (test code = CREAT) mg/dL 0.7-1.3 BUN/CREATININE RATIO (test code = BUN/CREA) 10-20 TOTAL PROTEIN (test code = PROT) gram/dL 6.4-8.2 ALBUMIN (test code = ALB) g/dL 3.4-5.0 GLOBULIN (test code = GLOB) gram/dL 2.7-4.2 ALBUMIN/GLOBULIN RATIO (test code = A/G) 0.75-1.50 CALCIUM (test code = CA) mg/dL 8.5-10.1 BILIRUBIN TOTAL (test code = BILT) mg/dL 0.0-1.0 SGOT/AST (test code = AST) IUnit/L 15-37 SGPT/ALT (test code = ALT) IUnit/L 12-78 ALKALINE PHOSPHATASE TOTAL (test code = ALKP) IUnit/L 45-117 CBC W/AUTO [id number] 04:53:00* Test Item Value Reference Range Interpretation Comments WHITE BLOOD CELL (test code = WBC) 10.2 K/mm3 4.5-12.5 N RED BLOOD CELL (test code = RBC) 2.90 mill/mm3 4.0-5.8 L HEMOGLOBIN (test code = HGB) 9.0 gram/dL 13.0-17.5 L HEMATOCRIT (test code = HCT) 29.1 % 42.0-52.0 L MEAN CELL VOLUME (test code = MCV) 100.3 fL 80-98 H MEAN CELL HGB (test code = MCH) 31.0 picogram 27.0-33.0 N MEAN CELL HGB CONCETRATION (test code = MCHC) 30.9 gram/dL 33.0-36. 0 L RED CELL DISTRIBUTION WIDTH (test code = RDW) 15.6 % 11.6-16. 2 N RED CELL DISTRIBUTION WIDTH SD (test code = RDW-SD) 57.8 fL 37 .0-51.0 H PLATELET COUNT (test code = PLT) 140 K/mm3 150-450 L MEAN PLATELET VOLUME (test code = MPV) 9.4 fL 6.7-11.0 N NEUTROPHIL % (test code = NT%) 72.5 % 39.0-69.0 H IMMATURE GRANULOCYTE % (test code = IG%) 1.1 % 0.0-5.0 N LYMPHOCYTE % (test code = LY%) 12.8 % 25.0-55.0 L MONOCYTE % (test code = MO%) 10.1 % 0.0-10.0 H EOSINOPHIL % (test code = EO%) 2.8 % 0.0-5.0 N BASOPHIL % (test code = BA%) 0.7 % 0.0-1.0 N NUCLEATED RBC % (test code = NRBC%) 0.0 % 0-0 N NEUTROPHIL # (test code = NT#) 7.39 K/mm3 1.8-7.7 N IMMATURE GRANULOCYTE # (test code = IG#) 0.11 x10 3/uL 0-0.03 H LYMPHOCYTE # (test code = LY#) 1.31 K/mm3 1.0-5.0 N MONOCYTE # (test code = MO#) 1.03 K/mm3 0-0.8 H EOSINOPHIL # (test code = EO#) 0.29 K/mm3 0.0-0.5 N BASOPHIL # (test code = BA#) 0.07 K/mm3 0.0-0.2 N NUCLEATED RBC # (test code = NRBC#) 0.00 K/mm3 0.0-0.1 N MANUAL DIFF REQUIRED (test code = MDIFF) NO - XR CHEST 1 [id number] 21:29:00 FAX: Wellington Hercules MD [phone] [place]: B St: ADM FAX: Es Alonso MD [phone] Name: ARY ALEJO [facility] : 1935 Age/S: 83/M [address] [facility] Unit #: [id number] Loc: [place] [address] Phys: Es Alonso MD Acct: [id number] Dis Date: Status: ADM IN PHONE #: [phone] Exam Date: 11/08/20182118 FAX #: [phone] Reason: sob EXAMS: CPT CODE: [id number] XR CHEST 1 V [id number] REASON FOR EXAM: sob EXAM ORDER DATE: 11/08/2018 8:46 PM Ordering M.Chris: Es Alonso MD PROCEDURE: - XR CHEST 1 V COMPARISON: FINDINGS: Portable AP frontal view of the chest obtained at 9:06 PM shows patchy airspace opacity of the bases. The heart size is minimally enlarged. Pulmonary vasculatures are unremarkable. IMPRESSION: Atelectasis of the bases with probable small bilateral pleural effusions at 2129 Reported and signed by: Tavares Brar M.D. CC: Wellington Pace MD; Es Park MD Technologist: YELENA ATKINS RT; JAMES Small RT(R) Trnscrd Date/Time/By: 11/08/2018 (2128) : By: Marcy Orig Print D/T: S: 11/08/2018 (2131) PAGE 1 Signed Report COMPREHENSIVE METABOLIC [id number] 19:35:00* Test Item Value Reference Range Interpretation Comments SODIUM (test code = NA) 139 mmol/L 136-145 N POTASSIUM (test code = K) 5.1 mmol/L 3.5-5.1 N CHLORIDE (test code = CL) 100.0 mmol/L 98-107 N CARBON DIOXIDE (test code = CO2) 28.0 mmol/L 21-32 N ANION GAP (test code = GAP) 16.1 10-20 N GLUCOSE (test code = GLU) 219 mg/dL 74-106 H BLOOD UREA NITROGEN (test code = BUN) 41 mg/dL 7-18 H GLOMERULAR FILTRATION RATE (test code = GFR) 8 mL/min >=60 Estimated GFR by using Modified MDRD formula.Chronic kidney disease is defined as either kidney damageor GFR <60 mL/min/1.73 m2 for >3 months. CREATININE (test code = CREAT) 6.40 mg/dL 0.7-1.3 H BUN/CREATININE RATIO (test code = BUN/CREA) 6.4 10-20 L TOTAL PROTEIN (test code = PROT) 7.1 gram/dL 6.4-8.2 N ALBUMIN (test code = ALB) 3.1 g/dL 3.4-5.0 L GLOBULIN (test code = GLOB) 4.0 gram/dL 2.7-4.2 N ALBUMIN/GLOBULIN RATIO (test code = A/G) 0.8 0.75-1.50 N CALCIUM (test code = CA) 8.6 mg/dL 8.5-10.1 N BILIRUBIN TOTAL (test code = BILT) 0.30 mg/dL 0.0-1.0 N SGOT/AST (test code = AST) 15 IUnit/L 15-37 N SGPT/ALT (test code = ALT) 26 IUnit/L 12-78 N ALKALINE PHOSPHATASE TOTAL (test code = ALKP) 97 IUnit/L 45-117 N Note change in reference range due to change in reagent. COMPREHENSIVE METABOLIC [id number] 19:18:00* Test Item Value Reference Range Interpretation Comments SODIUM (test code = NA) 139 mmol/L 136-145 N POTASSIUM (test code = K) 5.1 mmol/L 3.5-5.1 N CHLORIDE (test code = CL) 100.0 mmol/L 98-107 N CARBON DIOXIDE (test code = CO2) mmol/L 21-32 ANION GAP (test code = GAP) 10-20 GLUCOSE (test code = GLU) mg/dL 74-106 BLOOD UREA NITROGEN (test code = BUN) mg/dL 7-18 GLOMERULAR FILTRATION RATE (test code = GFR) mL/min >=60 CREATININE (test code = CREAT) mg/dL 0.7-1.3 BUN/CREATININE RATIO (test code = BUN/CREA) 10-20 TOTAL PROTEIN (test code = PROT) gram/dL 6.4-8.2 ALBUMIN (test code = ALB) g/dL 3.4-5.0 GLOBULIN (test code = GLOB) gram/dL 2.7-4.2 ALBUMIN/GLOBULIN RATIO (test code = A/G) 0.75-1.50 CALCIUM (test code = CA) mg/dL 8.5-10.1 BILIRUBIN TOTAL (test code = BILT) mg/dL 0.0-1.0 SGOT/AST (test code = AST) IUnit/L 15-37 SGPT/ALT (test code = ALT) IUnit/L 12-78 ALKALINE PHOSPHATASE TOTAL (test code = ALKP) IUnit/L 45-117 CBC W/AUTO [id number] 18:49:00* Test Item Value Reference Range Interpretation Comments WHITE BLOOD CELL (test code = WBC) 13.0 K/mm3 4.5-12.5 H RED BLOOD CELL (test code = RBC) 3.11 mill/mm3 4.0-5.8 L HEMOGLOBIN (test code = HGB) 9.7 gram/dL 13.0-17.5 L HEMATOCRIT (test code = HCT) 31.2 % 42.0-52.0 L MEAN CELL VOLUME (test code = MCV) 100.3 fL 80-98 H MEAN CELL HGB (test code = MCH) 31.2 picogram 27.0-33.0 N MEAN CELL HGB CONCETRATION (test code = MCHC) 31.1 gram/dL 33.0-36. 0 L RED CELL DISTRIBUTION WIDTH (test code = RDW) 15.9 % 11.6-16. 2 N RED CELL DISTRIBUTION WIDTH SD (test code = RDW-SD) 58.9 fL 37 .0-51.0 H PLATELET COUNT (test code = PLT) 180 K/mm3 150-450 N MEAN PLATELET VOLUME (test code = MPV) 9.4 fL 6.7-11.0 N NEUTROPHIL % (test code = NT%) 76.7 % 39.0-69.0 H IMMATURE GRANULOCYTE % (test code = IG%) 0.8 % 0.0-5.0 N LYMPHOCYTE % (test code = LY%) 10.7 % 25.0-55.0 L MONOCYTE % (test code = MO%) 8.7 % 0.0-10.0 N EOSINOPHIL % (test code = EO%) 2.5 % 0.0-5.0 N BASOPHIL % (test code = BA%) 0.6 % 0.0-1.0 N NUCLEATED RBC % (test code = NRBC%) 0.0 % 0-0 N NEUTROPHIL # (test code = NT#) 10.00 K/mm3 1.8-7.7 H IMMATURE GRANULOCYTE # (test code = IG#) 0.11 x10 3/uL 0-0.03 H LYMPHOCYTE # (test code = LY#) 1.39 K/mm3 1.0-5.0 N MONOCYTE # (test code = MO#) 1.13 K/mm3 0-0.8 H EOSINOPHIL # (test code = EO#) 0.33 K/mm3 0.0-0.5 N BASOPHIL # (test code = BA#) 0.08 K/mm3 0.0-0.2 N NUCLEATED RBC # (test code = NRBC#) 0.00 K/mm3 0.0-0.1 N CHEST 2 [id number] 22:12:00 [place] [address] Patient Name: ARY ALEJO MR #: [id number] : 1935 Age/Sex: 82/M Req #: [id number] Adm Physician: Ordered by: MICKEY ORNELAS MD Report #: [id number] Location: ER Room/Bed: Procedure: 0314-00 [id number] DX/CHEST 2 VIEWS Exam Date: 06/13/18 Exam Time: 2 159 REPORT STATUS: Signed EXAMIN ATION: CHEST 2 VIEWS INDICATION: NAUSEA X1 WEEK COMPARISON: 12/22. FINDINGS: TUBES and LINES: Right sided tunneled catheter wit h distal tip projected on the cavoatrial junction. Battery pack projected on t he right hemithorax. LUNGS: Mild pulmonary venous congestion and interstiti al edema. PLEURA: Probable bilateral small pleural effusions. No pneumotho rax. HEART AND MEDIASTINUM: The cardiac silhouette is mildly enlarged. BONES AND SOFT TISSUES: No acute osseous lesion. UPPER ABDOMEN: No free air under the diaphragm. IMPRESSION: Mild pulmonary venous marii estion and interstitial edema. Signed by: Dr. Christina Foreman M.D. on 06/13/2018 10:14 PM Dictated By: MELISSA FOREMAN MD, MD 13 Transcribed By: SALVADOR on 2213 COPY TO: MICKEY ORNELAS MD [id number] 12:07:00* Test Item Value Reference Range Interpretation Comments GLUBED (test code = GLUBED) 188 mg/dL 74-106 H Performed by certified cream separator operator at [facility] [id number] 10:07:00* Test Item Value Reference Range Interpretation Comments POTASSIUM (test code = K) 5.4 mmol/L 3.5-5.1 H S pecimen 1+ Hemolysed.Some results MAY NOT be accurate due to hemolysis. BASIC METABOLIC [id number] 16:44:00* Test Item Value Reference Range Interpretation Comments SODIUM (test code = NA) 135 mmol/L 136-145 L POTASSIUM (test code = K) 4.4 mmol/L 3.5-5.1 N CHLORIDE (test code = CL) 97.0 mmol/L 98-107 L CARBON DIOXIDE (test code = CO2) 29.0 mmol/L 21-32 N ANION GAP (test code = GAP) 13.4 10-20 N GLUCOSE (test code = GLU) 113 mg/dL 74-106 H BLOOD UREA NITROGEN (test code = BUN) 52 mg/dL 7-18 H GLOMERULAR FILTRATION RATE (test code = GFR) 6 mL/min >=60 Estimated GFR by using Modified MDRD formula.Chronic kidney disease is defined as either kidney damageor GFR <60 mL/min/1.73 m2 for >3 months. CREATININE (test code = CREAT) 8.80 mg/dL 0.7-1.3 H BUN/CREATININE RATIO (test code = BUN/CREA) 5.9 10-20 L CALCIUM (test code = CA) 9.4 mg/dL 8.5-10.1 N BASIC METABOLIC [id number] 16:41:00* Test Item Value Reference Range Interpretation Comments SODIUM (test code = NA) 135 mmol/L 136-145 L POTASSIUM (test code = K) 4.4 mmol/L 3.5-5.1 N CHLORIDE (test code = CL) 97.0 mmol/L 98-107 L CARBON DIOXIDE (test code = CO2) mmol/L 21-32 ANION GAP (test code = GAP) 10-20 GLUCOSE (test code = GLU) mg/dL 74-106 BLOOD UREA NITROGEN (test code = BUN) mg/dL 7-18 GLOMERULAR FILTRATION RATE (test code = GFR) mL/min >=60 CREATININE (test code = CREAT) mg/dL 0.7-1.3 BUN/CREATININE RATIO (test code = BUN/CREA) 10-20 CALCIUM (test code = CA) mg/dL 8.5-10.1 CBC W/AUTO [id number] 16:22:00* Test Item Value Reference Range Interpretation Comments WHITE BLOOD CELL (test code = WBC) 10.4 K/mm3 4.5-12.5 N RED BLOOD CELL (test code = RBC) 3.94 mill/mm3 4.0-5.8 L HEMOGLOBIN (test code = HGB) 11.9 gram/dL 13.0-17.5 L HEMATOCRIT (test code = HCT) 37.7 % 42.0-52.0 L MEAN CELL VOLUME (test code = MCV) 95.7 fL 80-98 N MEAN CELL HGB (test code = MCH) 30.2 picogram 27.0-33.0 N MEAN CELL HGB CONCETRATION (test code = MCHC) 31.6 gram/dL 33.0-36. 0 L RED CELL DISTRIBUTION WIDTH (test code = RDW) 15.2 % 11.6-16. 2 N RED CELL DISTRIBUTION WIDTH SD (test code = RDW-SD) 53.7 fL 37 .0-51.0 H PLATELET COUNT (test code = PLT) 172 K/mm3 150-450 N MEAN PLATELET VOLUME (test code = MPV) 9.5 fL 6.7-11.0 N NEUTROPHIL % (test code = NT%) 64.4 % 39.0-69.0 N IMMATURE GRANULOCYTE % (test code = IG%) 1.1 % 0.0-5.0 N LYMPHOCYTE % (test code = LY%) 19.1 % 25.0-55.0 L MONOCYTE % (test code = MO%) 12.0 % 0.0-10.0 H EOSINOPHIL % (test code = EO%) 2.7 % 0.0-5.0 N BASOPHIL % (test code = BA%) 0.7 % 0.0-1.0 N NUCLEATED RBC % (test code = NRBC%) 0.0 % 0-0 N NEUTROPHIL # (test code = NT#) 6.73 K/mm3 1.8-7.7 N IMMATURE GRANULOCYTE # (test code = IG#) 0.11 x10 3/uL 0-0.03 H LYMPHOCYTE # (test code = LY#) 1.99 K/mm3 1.0-5.0 N MONOCYTE # (test code = MO#) 1.25 K/mm3 0-0.8 H EOSINOPHIL # (test code = EO#) 0.28 K/mm3 0.0-0.5 N BASOPHIL # (test code = BA#) 0.07 K/mm3 0.0-0.2 N NUCLEATED RBC # (test code = NRBC#) 0.00 K/mm3 0.0-0.1 N MANUAL DIFF REQUIRED (test code = MDIFF) NO - Intro cath dialysis [id number] 09:00:00 Name: ARY ALEJO [facility] : 1935 Age/S: 82 / M [address] [facility] Unit #: [id number] Loc: BARBARA [place] [address] Phys: Tavares Brar MD Acct: [id number] Dis Date: Status: DEP [facility] PHONE #: [phone] Exam Date: 04/23/2018 1330 FAX #: [phone] Reason: Report Has Been Amended EXAMS: CPT CODE: [id number] Intro cath dialysis circuit [id number] Fluoro Time: 18 DAP (Gy m2): 47053 Air Kerma (mGy): 162.2 Addendum - 04/24/2018 SIGNED 05/15/2018 Exam [id number] was added to this report by Ambreen Henry on 04/24/2018 (899) Exam [id number] SP/[id number] was removed from this report by Ambreen Henry on 04/24/2018 (899) The original report was signed prior to the changes involving the above exam(s). The current status of the removed exam(s) may be viewed elsewhere in the system I, the undersigned physician, have reviewed this report for accuracy and verify that this is correct. at 1802 Reported and signed by: Tavares Brar M.D. Created Date/Time/User: 04/24/2018 (899) FLORINPDC Report REASON FOR EXAM:Immature left upper arm AV fistula PROCEDURE: 1. ultrasound-guided vascular access of the arterial limb of the left upper arm AV fistula 2. Ultrasound- guided vascular access of the venous limb of the left upper arm AV fistula Anesthesia: General Anesthesiologist: Dr. Quintero FINDINGS: After informed consent was obtained, the patient was brought to special procedures and placed supine on the table. The left arm was prepped was draped in the usual fashion. All elements of maximal sterile barrier techniques were applied. Ultrasound demonstrates patency of the upper arm AV fistula at the level of the antecubital fossa. Images of the AV fistula were submitted to PACS. Under real time ultrasound guidance, a micropuncture needle was used to access the arterial limb of the AV fistula. An AV fistulogram was performed through the 5 Barbadian micropun cture sheath. There is no evidence of central venous stenosis. The main ou tflow of the AV fistula is the cephalic vein which is patent. There is no evidence of venous outflow obstruction. PAGE 1 Signed Report (CONTINUED) Name: ARY ALEJO [facility] : 1935 Age/S: 82 / M [address] Unit #: [id number] Loc: BARBARA [place] [address] Phys: Tavares Brar MD Acct: [id number] Dis Date: Status: DEP S DC PHONE #: [phone] Exam Date: 04/23/19 19 1330 FAX #: [phone] Reason: Report Has Been Amended EXAMS: CPT CODE: [id number] Intro cath dialysis circuit 15737 Fluoro Time: 1 8 DAP (Gy m2): 78688 Air Kerma (mGy): 162.2 <Continued> Under direct ultrasound guidance, a second puncture was used to access the venous limb of the AV fistula. A Baeza catheter was then advanced over the guidewire into the left brachial artery. An AV fistula was performed through the Baeza catheter. There is no evidence of arterial inflow stenosis. The AV fistula origin is seen at the confluence of the left basilic vein and left cephalic vein junction. MED ICATIONS: None COMPLICATIONS: None Blood loss: Less than 5 mL Fluoroscopic time: 18 seconds Radiation dose: 622 mGy IMPRESSION: Patent left brachial-cephalic AV fistula with no evidence of central venous stenosis and no evidence of outflow stenosis. Arterial injection at the left brachial artery showed high flow through the left basilic vein which is connected to the left cephalic vein through a c ommon junction making the basilic vein the main outflow of the left brac hial artery and not allowing the left brachial-cephalic fistula to matur e at 1557 Reported and signed by: Tavares Brar M.D. CC: Tavares Brar MD; Wellington Pace MD Technologist: Sanjay Aguilar Trnsc[facility] Date/Time: 04/23/2018 (2799) Santino POLANCO/FLORINPDC Orig Print D/T: S: 04/23/2018 (4504) PAGE 2 Signed Report - SP ANGIO EXT UNI [id number] 15:57:00 Name: MELOARY LAMBERT [facility]. SP : 1935 Age/S: 82 / M [address] Unit #: [id number] Loc: [place]BAR[place] [address] Phys: Tavares Brar MD Acct: [id number] Dis Date: Status: REG [facility] PHONE #: [phone] Exam Date: 04/23/2018 1330 FAX #: [phone] Reason: EXAMS: CPT CODE: [id number] [place] [address] Fluoro Time: 18 DAP (Gy m2): 15572 Air Kerma (mGy): 162.2 REASON FOR EXAM:Immature left upper arm AV fistula PROCEDURE: 1. ultrasound-guided vascular access of the arterial limb of the left upper arm AV fistula 2. Ultrasound-guided vascular access of the venous limb of the left upper arm AV fistula Anesthesia: General Anesthesiologist: Dr. Quintero FINDINGS: After informed consent was obtained, the patient was brought to special procedures and placed supine on the table. The left arm was prepped was draped in the usual fashion. All elements of maximal sterile barrier techniques were applied. Ultrasound demonstrates patency of the upper arm AV fistula at the level of the antecubital fossa. Images of the AV fistula were submitted to PACS. Under real time ultrasound guidance, a micropuncture needle was used to access the arterial limb of the AV fistula. An AV fistulogram was performed through the 5 Barbadian micropuncture sheath. There is no evidence of central venous stenosis. The main outflow of the AV fistula is the cephalic vein which is patent. There is no evidence of venous outflow obstruction. Under direct ultrasound guidance, a second puncture was used to access the venous limb of the AV fistula. A Baeza catheter was then advanced over the guidewire into the left brachial artery. An AV fistula was performed through the Baeza catheter. There is no evidence of arterial inflow stenosis. The AV fistula origin is seen at the confluence of the left basilic vein and left cephalic vein junction. MEDICATIONS: None COMPLICATIONS: None Blood loss: Less than 5 mL Fluoroscopic time: 18 seconds Radiation dose: 622 mGy IMPRESSION: Patent left brachial-cephalic AV fistula with no evidence of central venous stenosis and no evidence of outflow stenosis. Arterial injection at the left brachial artery showed high flow through the left basilic vein which is connected to the left cephalic vein through a common junction making the basilic vein the main outflow of the left brachial artery and not allowing the left brachial-cephalic fistula to mature PAGE 1 Signed Report (CONTINUED) Name: ARY ALEJO [facility] SP : 1935 Age/S: 82 / M [address] Unit #: [id number] Loc: BARBARA [place] [address] Phys: Tavares Brar MD Acct: [id number] Dis Date: Status: REG [facility] PHONE #: [phone] Exam Date: 04/23/2018 1330 FAX #: [phone] Reason: EXAMS: CPT CODE: [id number] [place] [id number] Fluoro Time: 18 DAP (Gy m2): 57778 Air Kerma (mGy): 162.2 <Continued> at 1557 Reported and signed by: Tavares Brar M.D. CC: Tvaares Brar MD; Wellington Pace MD Technologist: Sanjay Aguilar [facility] Date/Time: 04/23/2018 (1557) t.[email or web address] Orig Print D/T: S: 04/23/2018 (1600) PAGE 2 Signed Report - US GUIDANCE VAS [id number] 15:57:00 Name: ARY ALEJO [facility] SP : 1935 Age/S: 82 / M [address] Unit #: [id number] Loc: BARBARA Rapp [address] Phys: Tavares Brar MD Acct: [id number] Dis Date: Status: REG [facility] PHONE #: [phone] Exam Date: 04/23/2018 1330 FAX #: [phone] Reason: EXAMS: CPT CODE: [id number] US GUIDANCE VASC ACCESS [id number] Fluoro Time: 18 DAP (Gy m2): 44087 Air Kerma (mGy): 162.2 REASON FOR EXAM:Immature left upper arm AV fistula PROCEDURE: 1. ultrasound-guided vascular access of the arterial limb of the left upper arm AV fistula 2. Ultrasound-guided vascular access of the venous limb of the left upper arm AV fistula Anesthesia: General Anesthesiologist: Dr. Quintero FINDINGS: After informed consent was obtained, the patient was brought to special procedures and placed supine on the table. The left arm was prepped was draped in the usual fashion. All elements of maximal sterile barrier techniques were applied. Ultrasound demonstrates patency of the upper arm AV fistula at the level of the antecubital fossa. Images of the AV fistula were submitted to PACS. Under real time ultrasound guidance, a micropuncture needle was used to access the arterial limb of the AV fistula. An AV fistulogram was performed through the 5 Barbadian micropuncture sheath. There is no evidence of central venous stenosis. The main outflow of the AV fistula is the cephalic vein which is patent. There is no evidence of venous outflow obstruction. Under direct ultrasound guidance, a second puncture was used to access the venous limb of the AV fistula. A Baeza catheter was then advanced over the guidewire into the left brachial artery. An AV fistula was performed through the Baeza catheter. There is no evidence of arterial inflow stenosis. The AV fistula origin is seen at the confluence of the left basilic vein and left cephalic vein junction. MEDICATIONS: None COMPLICATIONS: None Blood loss: Less than 5 mL Fluoroscopic time: 18 seconds Radiation dose: 622 mGy IMPRESSION: Patent left brachial-cephalic AV fistula with no evidence of central venous stenosis and no evidence of outflow stenosis. Arterial injection at the left brachial artery showed high flow through the left basilic vein which is connected to the left cephalic vein through a common junction making the basilic vein the main outflow of the left brachial artery and not allowing the left brachial-cephalic fistula to mature PAGE 1 Signed Report (CONTINUED) Name: ARY ALEJO [facility] SP : 1935 Age/S: 82 / M [address] [facility] Unit #: [id number] Loc: BARBARA [place]app [address] Phys: Tavares Brar MD Acct: [id number] Dis Date: Status: REG [facility] PHONE #: [phone] Exam Date: 04/23/2018 1330 FAX #: [phone] Reason: EXAMS: CPT CODE: [id number] US GUIDANCE VASC ACCESS [id number] Fluoro Time: 18 DAP (Gy m2): 09735 Air Kerma (mGy): 162.2 <Continued> at 1557 Reported and signed by: Tavares Brar M.D. CC: Tavares Brar MD; eWllington Pace MD Technologist: Sanjay Aguilar Trnsc[facility] Date/Time: 04/23/2018 (1754) [id number] Orig Print D/T: S: 04/23/2018 (1271) PAGE 2 Signed Report BASIC METABOLIC [id number] 10:43:00* Test Item Value Reference Range Interpretation Comments SODIUM (test code = NA) 132 mmol/L 136-145 L POTASSIUM (test code = K) 4.1 mmol/L 3.5-5.1 N CHLORIDE (test code = CL) 95.0 mmol/L 98-107 L CARBON DIOXIDE (test code = CO2) 28.0 mmol/L 21-32 N ANION GAP (test code = GAP) 13.1 10-20 N GLUCOSE (test code = GLU) 196 mg/dL 74-106 H BLOOD UREA NITROGEN (test code = BUN) 40 mg/dL 7-18 H GLOMERULAR FILTRATION RATE (test code = GFR) 7 mL/min >=60 Estimated GFR by using Modified MDRD formula.Chronic kidney disease is defined as either kidney damageor GFR <60 mL/min/1.73 m2 for >3 months. CREATININE (test code = CREAT) 7.30 mg/dL 0.7-1.3 H BUN/CREATININE RATIO (test code = BUN/CREA) 5.5 10-20 L CALCIUM (test code = CA) 9.0 mg/dL 8.5-10.1 N PROTHROMBIN [id number] 10:30:00* Test Item Value Reference Range Interpretation Comments PROTHROMBIN TIME PATIENT (test code = PTP) 11.4 seconds 9.0-14.0 N INTERNATIONAL NORMAL RATIO (test code = INR) 1.0 0.8-1.2 N The therapeutic range for oral anticoagulant therapy formost indications is an international normalized ratio (INR)of between 2.0 and 3.0. The recommended therapeutic INRrange for various clinical situations is listed below: Clinical Situation INR range Pulmonary e mbolism treatment (2.0-3.0)Venous thrombosis treatmentVenous thrombosis prophylaxis (high risk surgery)Prevention of systemic embolism from: Acute myocardial infarction Valvular heart disease Atrial fibrillation Mechanical prosthetic heart valves (2.5-3.5) IS PATIENT ON ANTICOAGULANTS? NTHROMBOPLASTIN TIME [id number] 10:30:00* Test Item Value Reference Range Interpretation Comments THROMBOPLASTIN TIME PARTIAL (test code = PTT) 28.2 seconds 25.0-36. 5 N IS PATIENT ON ANTICOAGULANTS? NCBC W/AUTO [id number] 10:25:00* Test Item Value Reference Range Interpretation Comments WHITE BLOOD CELL (test code = WBC) 9.5 K/mm3 4.5-12.5 N RED BLOOD CELL (test code = RBC) 4.15 mill/mm3 4.0-5.8 N HEMOGLOBIN (test code = HGB) 12.3 gram/dL 13.0-17.5 L HEMATOCRIT (test code = HCT) 40.4 % 42.0-52.0 L MEAN CELL VOLUME (test code = MCV) 97.3 fL 80-98 N MEAN CELL HGB (test code = MCH) 29.6 picogram 27.0-33.0 N MEAN CELL HGB CONCETRATION (test code = MCHC) 30.4 gram/dL 33.0-36. 0 L RED CELL DISTRIBUTION WIDTH (test code = RDW) 15.9 % 11.6-16. 2 N RED CELL DISTRIBUTION WIDTH SD (test code = RDW-SD) 55.5 fL 37 .0-51.0 H PLATELET COUNT (test code = PLT) 188 K/mm3 150-450 N MEAN PLATELET VOLUME (test code = MPV) 9.2 fL 6.7-11.0 N NEUTROPHIL % (test code = NT%) 65.0 % 39.0-69.0 N IMMATURE GRANULOCYTE % (test code = IG%) 0.8 % 0.0-5.0 N LYMPHOCYTE % (test code = LY%) 19.5 % 25.0-55.0 L MONOCYTE % (test code = MO%) 10.8 % 0.0-10.0 H EOSINOPHIL % (test code = EO%) 3.1 % 0.0-5.0 N BASOPHIL % (test code = BA%) 0.8 % 0.0-1.0 N NUCLEATED RBC % (test code = NRBC%) 0.0 % 0-0 N NEUTROPHIL # (test code = NT#) 6.17 K/mm3 1.8-7.7 N IMMATURE GRANULOCYTE # (test code = IG#) 0.08 x10 3/uL 0-0.03 H LYMPHOCYTE # (test code = LY#) 1.85 K/mm3 1.0-5.0 N MONOCYTE # (test code = MO#) 1.03 K/mm3 0-0.8 H EOSINOPHIL # (test code = EO#) 0.29 K/mm3 0.0-0.5 N BASOPHIL # (test code = BA#) 0.08 K/mm3 0.0-0.2 N NUCLEATED RBC # (test code = NRBC#) 0.00 K/mm3 0.0-0.1 N [id number] 10:18:00* Test Item Value Reference Range Interpretation Comments GLUBED (test code = GLUBED) 201 mg/dL 74-106 H Performed by certified cream separator operator at [facility] BASIC METABOLIC [id number] 17:51:00* Test Item Value Reference Range Interpretation Comments SODIUM (test code = NA) 139 mmol/L 136-145 N POTASSIUM (test code = K) 3.9 mmol/L 3.5-5.1 N CHLORIDE (test code = CL) 98.0 mmol/L 98-107 N CARBON DIOXIDE (test code = CO2) 29.0 mmol/L 21-32 N ANION GAP (test code = GAP) 15.9 10-20 N GLUCOSE (test code = GLU) 122 mg/dL 74-106 H BLOOD UREA NITROGEN (test code = BUN) 36 mg/dL 7-18 H GLOMERULAR FILTRATION RATE (test code = GFR) 8 mL/min >=60 Estimated GFR by using Modified MDRD formula.Chronic kidney disease is defined as either kidney damageor GFR <60 mL/min/1.73 m2 for >3 months. CREATININE (test code = CREAT) 7.00 mg/dL 0.7-1.3 H BUN/CREATININE RATIO (test code = BUN/CREA) 5.2 10-20 L CALCIUM (test code = CA) 9.5 mg/dL 8.5-10.1 N BASIC METABOLIC [id number] 17:48:00* Test Item Value Reference Range Interpretation Comments SODIUM (test code = NA) 139 mmol/L 136-145 N POTASSIUM (test code = K) 3.9 mmol/L 3.5-5.1 N CHLORIDE (test code = CL) 98.0 mmol/L 98-107 N CARBON DIOXIDE (test code = CO2) mmol/L 21-32 ANION GAP (test code = GAP) 10-20 GLUCOSE (test code = GLU) mg/dL 74-106 BLOOD UREA NITROGEN (test code = BUN) mg/dL 7-18 GLOMERULAR FILTRATION RATE (test code = GFR) mL/min >=60 CREATININE (test code = CREAT) mg/dL 0.7-1.3 BUN/CREATININE RATIO (test code = BUN/CREA) 10-20 CALCIUM (test code = CA) mg/dL 8.5-10.1 PROTHROMBIN [id number] 17:30:00* Test Item Value Reference Range Interpretation Comments PROTHROMBIN TIME PATIENT (test code = PTP) 11.6 seconds 9.0-14.0 N INTERNATIONAL NORMAL RATIO (test code = INR) 1.0 0.8-1.2 N The therapeutic range for oral anticoagulant therapy formost indications is an international normalized ratio (INR)of between 2.0 and 3.0. The recommended therapeutic INRrange for various clinical situations is listed below: Clinical Situation INR range Pulmonary e mbolism treatment (2.0-3.0)Venous thrombosis treatmentVenous thrombosis prophylaxis (high risk surgery)Prevention of systemic embolism from: Acute myocardial infarction Valvular heart disease Atrial fibrillation Mechanical prosthetic heart valves (2.5-3.5) THROMBOPLASTIN TIME [id number] 17:30:00* Test Item Value Reference Range Interpretation Comments THROMBOPLASTIN TIME PARTIAL (test code = PTT) 28.9 seconds 25.0-36. 5 N CBC W/AUTO [id number] 17:23:00* Test Item Value Reference Range Interpretation Comments WHITE BLOOD CELL (test code = WBC) 10.5 K/mm3 4.5-12.5 N RED BLOOD CELL (test code = RBC) 4.08 mill/mm3 4.0-5.8 N HEMOGLOBIN (test code = HGB) 12.1 gram/dL 13.0-17.5 L HEMATOCRIT (test code = HCT) 40.1 % 42.0-52.0 L MEAN CELL VOLUME (test code = MCV) 98.3 fL 80-98 H MEAN CELL HGB (test code = MCH) 29.7 picogram 27.0-33.0 N MEAN CELL HGB CONCETRATION (test code = MCHC) 30.2 gram/dL 33.0-36. 0 L RED CELL DISTRIBUTION WIDTH (test code = RDW) 15.4 % 11.6-16. 2 N RED CELL DISTRIBUTION WIDTH SD (test code = RDW-SD) 55.4 fL 37 .0-51.0 H PLATELET COUNT (test code = PLT) 209 K/mm3 150-450 N MEAN PLATELET VOLUME (test code = MPV) 9.4 fL 6.7-11.0 N NEUTROPHIL % (test code = NT%) 63.4 % 39.0-69.0 N IMMATURE GRANULOCYTE % (test code = IG%) 0.8 % 0.0-5.0 N LYMPHOCYTE % (test code = LY%) 18.4 % 25.0-55.0 L MONOCYTE % (test code = MO%) 13.5 % 0.0-10.0 H EOSINOPHIL % (test code = EO%) 3.1 % 0.0-5.0 N BASOPHIL % (test code = BA%) 0.8 % 0.0-1.0 N NUCLEATED RBC % (test code = NRBC%) 0.0 % 0-0 N NEUTROPHIL # (test code = NT#) 6.65 K/mm3 1.8-7.7 N IMMATURE GRANULOCYTE # (test code = IG#) 0.08 x10 3/uL 0-0.03 H LYMPHOCYTE # (test code = LY#) 1.93 K/mm3 1.0-5.0 N MONOCYTE # (test code = MO#) 1.41 K/mm3 0-0.8 H EOSINOPHIL # (test code = EO#) 0.33 K/mm3 0.0-0.5 N BASOPHIL # (test code = BA#) 0.08 K/mm3 0.0-0.2 N NUCLEATED RBC # (test code = NRBC#) 0.00 K/mm3 0.0-0.1 N MANUAL DIFF REQUIRED (test code = MDIFF) NO SPECIAL PROCEDURE IN CATH [id number] 09:07:00 [place] [address] Patient Name: ARY ALEJO MR #: [id number] : 1935 Age/Sex: 82/M Req #: [id number] Adm Physician: WELLINGTON PACE MD Ordered by: MARY WELLS, FE WELLS Report #: [id number] [facility]: [facility] Room/Bed: [facility] Procedure: [id number] IR/ SPECIAL 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 Medications: 1% lidocaine. The patient's vital signs, including pulse oximetry, were continuously monitored by the interventional radiology nurse. Fluoroscopy time: Not specified Estimated blood loss: Minimal. Compl ications: No immediate. Procedure in detail: Informed consent for the procedure was obtained from the patient after discussion of risks and benefits . The left neck and upper chest was prepped and draped in the standard steril e fashion after the patient was placed in the supine position on the fluorosco pic table. 1% lidocaine was administered into the skin and subcutaneous tis sues of the right lower neck for local anesthesia. Then, under continuous son ographic guidance, a 21-gauge micropuncture needle was advanced into the left internal jugular vein. A 0.018 inch wire was advanced centrally under fluoros copic guidance. The needle was then removed and access was secured with a m icropuncture sheath. A 0.035 "Amplatz wire was then advanced through the micr opuncture sheath and with the help of a 5 Barbadian Kumpe catheter the wire was m anipulated into the inferior vena cava under fluoroscopic guidance. Attenti on was then turned to the right upper chest. A suitable catheter exit site wa s determined, approximately 3 fingerbreadths inferior to the clavicle. The sk in was marked. 1% lidocaine was used to anesthetize a subcutaneous tract exte nding from the planned catheter exit site to the venotomy at the right lower n twin. A stab incision was made on the right upper chest. Subsequently, the ca theter was tunneled from the exit site of the right upper chest to the venotom y at the right lower neck. The retention cuff of the catheter was advanced we ll into the subcutaneous tunnel. The micropuncture sheath was then removed over the wire and the tract was serially dilated. Finally, a 16.5-Barbadian peel -away sheath was advanced over the wire under fluoroscopic guidance. The wire and inner dilator of the sheath were removed and 16 Barbadian Bard 23 cm long sp lit tip HD catheter was advanced through the peel-away sheath. The catheter t ip was positioned at the cavoatrial junction. Each catheter lumen showed good bidirectional flow. Each lumen was then packed with 2,000 units of hepar in. The catheter was secured at the exit site on the right upper chest with 3 -0 monofilament nylon suture. A 4-0 Vicryl pursestring suture was placed arou nd the catheter at the entry side into the skin. The venotomy at the right low er neck was closed with two 4-0 interrupted Vicryl sutures. A sterile dressin g was applied. The patient tolerated the procedure well without immediate co mplication. Impression: 1. Successful placement of a tunneled dual-lum en hemodialysis catheter (16-Barbadian, 23-cm tip-cuff length Bard split tip HD c atheter). 2. The line is okay for immediate use. Signed by: Dr. Michael ervin DO on 01/01/2018 9:16 AM Dictated By: MICHAEL COELHO DO Electronical ly Signed By: MICHAEL COELHO DO on 01/01/18915 Transcribed By: SALVADOR on 05/20 COPY TO: FE HERNANDEZ [id number] 11:35:00 [place] [address] Patient Name: AYR ALEJO MR #: [id number] : 0 1935 Age/Sex: 82/M Req #: [id number] Adm Physician: WELLINGTON PACE MD Ordered by: MARY WELLS, FE WELLS Report #: [id number] Locatio n: [facility] Room/Bed: [place] [address] Procedure: [id number] US/ US GALLBLADDER Exam Date: Exam Time: REPORT STATUS: Signed PROCEDURE: GALLBLADDER ULTRASOUND COMPARISON: Report from CT abdomen 08/07/16, images not available for review. INDICATIONS: NAUSEA/VOMITTING FINDINGS: Study is limited by the patient's large body habitus. Multiple sagittal and axial images were obtained of the [facility] upper quadrant of the abdomen. The liver is enlarged measuring 19. 4 cm and demonstrates increased echogenicity. A simple appearing cyst in the right hepatic lobe measures up to 1.8 cm. The portal vein is patent with he patopetal flow measuring 1.2 mm in diameter. The common bile duct is dilated measuring up to 1.2 cm near the pancreatic head. No definite stone is seen. The gallbladder is normal in appearance, without evidence for gallbladd er stones or sludge. There is no gallbladder wall thickening or pericholecys tic fluid. The sonographic Patel's sign is negative. The pancreas and aorta are not visualized due to overlying bowel gas. The right kidney jackie sures 13.7 cm in length. There is increased echogenicity. No evidence of hy dronephrosis or stone. There is a cystic lesion in the right kidney superior pole laterally measuring up to 4.9 cm which is predominately anechoic with so me internal echotexture and punctate hyperechoic foci. An additional 3.8 x 2. 5 x 4.9 cm complex heterogeneous echotexture lesion is noted in the right inf erior pole medially. CONCLUSION: Dilated common bile duct measurin g up to 1.2 cm near the pancreatic head. Given body habitus, unable to evalua te the pancreatic head. No definite stone is visualized. An MRI/MRCP may be considered for further evaluation. No sonographic evidence of cholec ystitis. Hepatomegaly with hepatic steatosis. Complex heterogeneou s mass in the right inferior pole kidney measuring up to 4.9 cm. 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 Addition al minimally complex right upper pole renal cyst, a cyst at this location was noted on prior CT. However, images from CT on 08/07/16 were not available for review at the time of this dictation. Increased right renal echogenici ty which could reflect medical renal disease. Dictated by: ANN DUEÑAS M.D. on 12/27/2017 at 11:35 Electronically approved by: ANN DUEÑAS M.D. on 12/27/2017 at 11:35 Dictated By: ANN DUEÑAS MD [facility] Signed By: ANN DUEÑAS MD on 12/27/17 1135 Transcribed By: LAURITA on 1135 COPY TO: FE HERNANDEZ ABDOMEN-1VIEW (KUB)2017-12-27 11:15:00 [place] [address] Patient Name: ARY ALEJO MR #: [id number] : 1935 Age/Sex: 82/M Req #: [id number] Adm Physician: WELLINGTON PACE MD Ordered by: FE HERNANDEZ MD, MD Report #: [id number] Location: [facility] Room/Bed: [place] [address] Procedure: [id number] DX/ ABDOMEN-1VIEW (KUB) Exam Date: 12/27/17 Exam Time: 0 900 REPORT STATUS: Signed PROCEDURE: X-RAY ABDOMEN - KUB COMPAR CARLEE: KUB 10/31/17. INDICATIONS: nausea/vomiting FINDINGS: E xam is limited by body habitus. Contrast opacified the large bowel. There is a non-obstructed bowel-gas pattern. Extensive sigmoid diverticulosis is p resent. There are no calcifications projected over the renal shadows, exp ected course of the ureters or bladder. There are no acute osseous abnorma lities. The lung bases are clear. CONCLUSION: No evidence of bowel ob struction. Extensive sigmoid diverticulosis. Dictated by: ANN DUEÑAS M.D. on 12/27/2017 at 11:15 Electronically approved by: MELISSA DUEÑAS M.D. on 12/27/2017 at 11:15 Dictated By: ANN DUEÑAS MD El ectronically Signed By: ANN DUEÑAS MD on 12/27/17 1115 Transcribed By: LAURITA on 12/27/17 1115 COPY TO: FE HERNANDEZ MODIFIED BA. [id number] 09:17:00 [place] [address] Patient Name: ARY ALEJO MR #: [id number] : 1935 Age/Sex: 82/M Req #: [id number] Adm Physician: WELLINGTON PACE MD Ordered by: TRICE HURTADO MD Report #: [id number] Location: IMCU Room/Bed: IMCU 187-1 Procedure: [id number] DX/MOD IFIED BA. SWALLOW Exam Date: 12/24/17 Exam Time: 144 6 REPORT STATUS: Signed Exam: Modified barium swallow History: Eric frankie medical history of recurrent aspiration pneumonia. Comparison: None avail able Findings: Study was performed in conjunction with speech pathology. Karen ashby was administered multiple different consistencies of barium impregnated liquids and solids with fluoroscopic recording. There was intermittent aspirat ion of thin liquids with a delayed clearing cough. Please see the full re port provided by speech pathology. Fluoroscopy time: 59 seconds Cumulativ e area dose product: 943.29 cGycm2 Impression: Intermittent aspirat ion with thin liquids. Signed by: Dr. Michael Coelho DO on 12/25/2017 9:21 A M Dictated By: MICHAEL COELHO DO 0 Transcribed By: SALVADOR on 12/25/17920 COPY TO: TRICE STEPHEN MD IR [id number] 13:00:00 [place] [address] Patient Name: ARY ALEJO MR #: [id number] : 1935 Age/Sex: 82/M Req #: [id number] Adm Physician: WELLINGTON PACE MD Ordered by: MARY WELLS, FE WELLS Report #: [id number] Location: MED/SURG3 Room/Bed: 297-1 Procedure: [id number] DX/ IR CONSULT Exam Date: Exam Time: REPORT STAT US: Signed Date and Time: 12/24/2017 Procedure: Right internal jugular te mporary hemodialysis catheter placement corrugator operator: Dr. Khalida Villalta e-operative diagnosis: Hyperkalemia, acute kidney injury Post-operative diagno sis: Hyperkalemia, acute kidney injury Conscious Sedation: None The patie nt's heart rate and pulse oximetry were continuously monitored by the [facility] serena se. Blood pressure was monitored at 5 minute intervals. Additional Medicat ions: Lidocaine 1% for local anesthesia Fluoroscopy time: 0.3 minutes Front al Air Kerma: 11.70 mGy Contrast used: None Estimated blood loss: Minimal Blood products administered: None Specimens: None Implants: 13 Barbadian 15 cm triple-lumen hi flow central venous catheter Complications: No immediate Con dition at completion: Stable Disposition: Return to [facility] DISCUSSION: Informed consent was obtained and documented in the medical record after disc ussion of risks and benefits. The patient was [...] 3 5-in. wire was advanced centrally into t he IVC under fluoroscopic guidance. The needle was removed over the wire and t he tract was dilated. Then a 13 Barbadian, 15 cmtriple-lumen central venous marely ter was advanced over the wire to full depth. The wire was removed, and the ca theter tip was positioned at the low superior vena cava.. Each lumen showed ad equate bidirectional flow and was flushed with sterile saline. The cathet er was secured to the skin with monofilament nylon suture and a sterile dressi ng was applied. The patient tolerated the procedure well without immediate com plication. FINDINGS: Patent right internal jugular vein IMPRE SSION: Successful placement of a nontunneled hemodialysis catheter (13 Barbadian, 15 cm triple-lumen Trialysis) by a right internal jugular approach under sono graphic and fluoroscopic guidance. Signed by: Dr. Uriah Milner M.D. on 12/24/2017 1:04 PM Dictated By: URIAH MILNER MD 1141 Transcribed By: SALVADOR on 12/28/17 1141 COPY TO: FE HERNANDEZ GUIDANCE FOR [id number] 13:00:00 [place] [address] Patient Name: ARY ALEJO MR #: [id number] : 0 1935 Age/Sex: 82/M Req #: [id number] Adm Physician: WELLINGTON PACE MD Ordered by: MARY WELLS, FE WELLS Report #: [id number] Locatio n: MED/SURG3 Room/Bed: [facility] Procedure: [id number] US/ US GUIDANCE FOR PROCEDURE Exam Date: 12/24/17 Exam T esha: 1135 REPORT STATUS: Signed Date and Time: 12/24/2017 Procedure : Right internal jugular temporary hemodialysis catheter placement corrugator operator: Dr. Milner Pre-operative diagnosis: Hyperkalemia, acute kidney inj ury Post-operative diagnosis: Hyperkalemia, acute kidney injury Conscious Sedation: None The patient's heart rate and pulse oximetry were continuously monitored by the IMCU nurse. Blood pressure was monitored at 5 minute interva ls. Additional Medications: Lidocaine 1% for local anesthesia Fluoroscopy time: 0.3 minutes Frontal Air Kerma: 11.70 mGy Contrast used: None Estim ated blood loss: Minimal Blood products administered: None Specimens: None Implants: 13 Barbadian 15 cm triple-lumen hi flow central venous catheter Compli cations: No immediate Condition at completion: Stable Disposition: Return to [facility] DISCUSSION: Informed consent was obtained and documented in the medical record after discussion of risks and benefits. The patient was pl aced in the supine position on the hospital bed. Preliminary sonographic evalu ation confirmed patency of the right internal jugular vein, evidenced by comp ressibility. The right neck was prepped and draped in the standard sterile fashion. 1% lidocaine was infiltrated into the skin and subcutaneous tissues f or local anesthesia. Then under continuous sonographic guidance, an 18-gauge s inglewall needle was used to access the right internal jugular vein. A ECS Tuninge nt sonographic image was stored in the medical record. A 0.0 3 5-in. wire was advanced centrally into the IVC under fluoroscopic guidance. The needle was removed over the wire and the tract was dilated. Then a 13 Barbadian, 15 cmtriple -lumen central venous catheter was advanced over the wire to full depth. The w claire was removed, and the catheter tip was positioned at the low superior vena cava.. Each lumen showed adequate bidirectional flow and was flushed with ster ile saline. The catheter was secured to the skin with monofilament nylon galeano ture and a sterile dressing was applied. The patient tolerated the procedure w ell without immediate complication. FINDINGS: Patent right internal jugular vein IMPRESSION: Successful placement of a nontunneled hemodi alysis catheter (13 Barbadian, 15 cm triple-lumen Trialysis) by a right internal jugular approach under sonographic and fluoroscopic guidance. Signed by: Dr. Uriah Milner M.D. on 12/24/2017 1:04 PM Dictated By: URIAH Shahid 1141 Transcribed By: SALVADOR on 12/28/17 1141 COPY TO: FE HERNANDEZ NON-TUNNELLED CVC CATH [id number] 13:00:00 [place] [address] Patient Name: ARY ALEJO MR #: [id number] : 1935 Age/Sex: 82/M Req #: [id number] Adm Physician: WELLINGTON PACE MD Ordered by: MARY WELLS, FE WELLS Report #: [id number] Location: MED/SURG3 Room/Bed: [facility] Procedure: IR/ NON-TUNNELLED CVC CATH PLACMNT Exam Date: 12/24/17 E xam Time: 1100 REPORT STATUS: Signed Date and Time: 12/24/2017 Proc edure: Right internal jugular temporary hemodialysis catheter placement [facility] cream separator operator: Dr. Milner Pre-operative diagnosis: Hyperkalemia, acute kidne y injury Post-operative diagnosis: Hyperkalemia, acute kidney injury Cons cious Sedation: None The patient's heart rate and pulse oximetry were continuo usly monitored by the IMCU nurse. Blood pressure was monitored at 5 minute in tervals. Additional Medications: Lidocaine 1% for local anesthesia Fluoro scopy time: 0.3 minutes Frontal Air Kerma: 11.70 mGy Contrast used: None Estimated blood loss: Minimal Blood products administered: None Specimens: N one Implants: 13 Barbadian 15 cm triple-lumen hi flow central venous catheter C omplications: No immediate Condition at completion: Stable Disposition: Retu rn to IMCU DISCUSSION: Informed consent was obtained and documented in the medical record after discussion of risks and benefits. The patient w as placed in the supine position on the hospital bed. Preliminary sonographic evaluation confirmed patency of the right internal jugular vein, evidenced by compressibility. The right neck was prepped and draped in the standard dave rile fashion. 1% lidocaine was infiltrated into the skin and subcutaneous tiss ues for local anesthesia. Then under continuous sonographic guidance, an 18-ga uge singlewall needle was used to access the right internal jugular vein. A pe rmanent sonographic image was stored in the medical record. A 0.0 3 5-in. wire was advanced centrally into the IVC under fluoroscopic guidance. The needle w as removed over the wire and the tract was dilated. Then a 13 Barbadian, 15 cmt riple-lumen central venous catheter was advanced over the wire to full depth. The wire was removed, and the catheter tip was positioned at the low superior vena cava.. Each lumen showed adequate bidirectional flow and was flushed with sterile saline. The catheter was secured to the skin with monofilament nyl on suture and a sterile dressing was applied. The patient tolerated the proced ure well without immediate complication. FINDINGS: Patent right int ernal jugular vein IMPRESSION: Successful placement of a nontunneled h emodialysis catheter (13 Barbadian, 15 cm triple-lumen Trialysis) by a right inte rnal jugular approach under sonographic and fluoroscopic guidance. Signed by: Dr. Uriah Milner M.D. on 12/24/2017 1:04 PM Dictated By: URIAH CHENG MD 1141 Transcribed By: SALVADOR on 12/28/17 1141 COPY TO: FE HERNANDEZ CHEST SINGLE (PORTABLE)2017-12-22 06:29:00 [place] [address] Patient Name: ARY ALEJO MR #: [id number] : 1935 Age/Sex: 82/M Req #: [id number] Adm Physician: WELLINGTON PACE MD Ordered by: BURT FABIAN MUSIC CRITIC Report #: [id number] Location: [facility] Room/Bed: [place] [address] Procedure: [id number] DX/C HEST SINGLE (PORTABLE) Exam Date: 12/22/17 Exam Time : 0555 REPORT STATUS: Signed CHEST SINGLE (PORTABLE), 12/22/2017 7:00 AM Technique: CHEST SINGLE (PORTABLE) Comparison: 12/21/2017 Clinical hist ory: Shortness of breath Findings: See Impression Impression: Jaime sis by body habitus, portable technique. 1. Lines/Tubes: Electronic device ove rlies the right hemithorax. 2. Stable mildly enlarged cardiomediastinal silhou ette. Consider follow-up upright PA and lateral. 3. No consolidation or elroy a. 4. No effusion or pneumothorax. Left costophrenic angle is excluded. S igned by: Dr Ang Taylor MD on 12/22/2017 6:31 AM Dictated By: ANG TAYLOR MD 0 Trans cribed By: SALVADOR on 12/22/17630 COPY TO: BURT FABIAN NP CHEST SINGLE (PORTABLE)2017-12-21 16:29:00 [place] [address] Patient Name: ARY ALEJO MR #: [id number] : 1935 Age/Sex: 82/M Req #: [id number] Adm Physician: Ordered by: BURT FABIAN NP Report #: [id number] Location: ER Room/Bed: Procedure: [id number] DX/CHEST SINGLE (PORTABLE) Exjess m Date: 12/21/17 Exam Time: 1620 REPORT STATUS: Signed EXAMINATION: CHEST SINGLE (PORTABLE) INDICATION: Chest pain. Abdomen pain. COMPARISON: July 29, 2016 FINDINGS: Por table AP view Limited by body habitus. TUBES and LINES: Metallic d evice and wires overlie the right and left chest. LUNGS: Lungs are well in flated. Mild central vascular congestion. There is no evidence of pneumonia or pulmonary edema. PLEURA: No pleural effusion or pneumothorax. HEA RT AND MEDIASTINUM: Thickened right paratracheal stripe. BONES AND SOFT TISSUES: No acute osseous lesion. Soft tissues are unremarkable. UPPER ABDOMEN: No free air under the diaphragm. IMPRESSION: Mild central vascular congestion. Thickened right paratracheal stripe could be artifactual. Upright PA and lateral chest radiographs are recommended Signed by: Dr. Ramakrishna Hays M.D. on 12/21/2017 4:34 PM Dictated By: RAMAKRISHNA HAYS MD, MD 1634 Transcribed By: SALVADOR on 12/21/17 1634 COPY TO: BURT FABIAN NP ABDOMEN- 1VIEW (KUB)2017-10-31 18:13:00 [place] [address] Patient Name: ARY ALEJO MR #: [id number] : 1935 Age/Sex: 82/M Req #: [id number] Adm Physician: Ordered by: DESHAUN RASCON MD Report #: [id number] Location: [facility] Room/Bed: Procedure: [id number] DX/ABDOMEN-1VIEW (KUB) Exam Date: 10/31/17 Exam Time: 1745 REPORT STATUS: S igned PROCEDURE: X-RAY ABDOMEN - KUB COMPARISON: KUB dated 01/12/17 INDICATIONS: STONES FINDINGS: Limited by body habitus. Th ere is a non-obstructed bowel-gas pattern. There are no calcifications projec sis over the renal shadows, expected course of the ureters or bladder. Left u pper quadrant calcification is again seen, which was characterized as splenic calcified granuloma on prior exam. There are no acute osseous abnormaliti es. The lung bases are clear. CONCLUSION: Nonobstructive bowel gas pa ttern. No definite evidence of nephrolithiasis. Dictated by: Ronin Lara M.D. on 10/31/2017 at 18:13 Electronically approved by: Ronni farrell M.D. on 10/31/2017 at 18:13 Dictated By: RONNI Shahid 12 Transcribed By: LAURITA on 10/31/171812 COPY TO: DESHAUN RASCON MD MODIFIED BA. [id number] 18:00:00 [place] [address] Patient Name: ARY ALEJO MR #: [id number] : 1935 Age/Sex: 82/M Req #: [id number] Adm Physician: Ordered by: WELLINGTON PACE MD Report #: [id number] Location: DX Room/Bed: Procedure: [id number] DX/MODIFIED BA. SWALLOW Exam Da te: 09/05/17 Exam Time: 1200 REPORT STATUS: Sig mando PROCEDURE: X-RAY MODIFIED BARIUM SWALLOW COMPARISON: 07/31/17 INDICATIONS: Not provided. DISCUSSION: Fluoroscopic examination was performed in conjunction with speech pathology, during swallowing of a varie ty of thin and thick liquid consistencies. Fluoroscopy time: 2:03 min Cum ulative air kerma : 16.85 mGy CONCLUSION: One episode of minimal jessica ent aspiration with mixed consistency. Please see the report from speech path ology for complete details. Dictated by: Ronni Lara M.D. on 08/2017 at 18:00 Electronically approved by: Ronni Lara M.D. on 09/05 at 18:00 Dictated By: RONNI LARA MD Electronically S igned By: RONNI LARA MD on 09/05/17 1800 Transcribed By: LAURITA on 09/05/17 1 800 COPY TO: WELLINGTON PACE MD TISSUE [id number] 15:53:00 Surgical Pathology Report Case: [id number] Authorizing Provider: Radha Garcias MD Collected: 08/10/2017 1144 Ordering Location: [facility] PERI[facility] Received: 08/10/2017 1237 SER VICES Patholog ist: Gurvinder Zapata MD Specimen: Hardware, implantable pulse generator TECHNOLOGY ENGINEER, CHEST, REMOVAL: - TECHNOLOGY ENGINEER (G ROSS DIAGNOSIS)[place]/DB/pl Signing Pathologist Direct Phone Line: [phone]' s disease, end of battery life of intrathecal infusion pumpImplantable pulse gen eratorReceived fresh labeled "hardware", description "implantable pulse generato r" is a 6.5 x 5.5 x 2.0 cm metallic medical cost consultant. The specimen is for gross id entification only. DB/plPOCT-GLUCOSE [id number] 12:06:00* Test Item Value Reference Range Interpretation Comments POC-GLUCOSE METER ([employer] (test code = 1538) 169 mg/dL 70-110 H TESTED AT [facility] [address] [place] [address] BUN AND [id number] 08:56:00* Test Item Value Reference Range Interpretation Comments BLOOD UREA NITROGEN (BEAKER) (test code = 354) 59 mg/dL 7-21 H CREATININE (BEAKER) (test code = 358) 2.19 mg/dL 0.57-1.25 H EGFR (BEAKER) (test code = 1092) 29 mL/min/1.73 sq m ESTIMATED GFR IS NOT ACCURATE CREATININE CLEARANCE IN PREDICTING GLOMERULAR FILTRATION RATE. ESTIMATED GFR IS NOT APPLICABLE FOR DIALYSIS PATIENTS. POCT-GLUCOSE [id number] 08:06:00* Test Item Value Reference Range Interpretation Comments POC-GLUCOSE METER (BEAKER) (test code = 1538) 130 mg/dL 70-110 H TESTED AT [facility] [address] [facility] [address] RAD, CHEST, 2 [id number] 17:03:00Reason for exam:->pre op testingFINAL REPORT Chest [...] habitus. No active cardiopulmonary disease. Signed: Ruby Goodman MDReport Verified Date/Time: 07/23/2017 17:03:06 Reading Location: [address] Radiology Reading Room C METABOLIC [id number] 16:44:00* Test Item Value Reference Range Interpretation Comments SODIUM (BEAKER) (test code = 381) 141 meq/L 136-145 POTASSIUM (BEAKER) (test code = 379) 4.5 meq/L 3.5-5.1 CHLORIDE (BEAKER) (test code = 382) 104 meq/L 98-107 CO2 (BEAKER) (test code = 355) 28 meq/L 22-29 BLOOD UREA NITROGEN (BEAKER) (test code = 354) 71 mg/dL 7-21 H CREATININE (BEAKER) (test code = 358) 2.70 mg/dL 0.57-1.25 H GLUCOSE RANDOM (BEAKER) (test code = 652) 142 mg/dL 70-105 H CALCIUM (BEAKER) (test code = 697) 9.2 mg/dL 8.4-10.2 EGFR (BEAKER) (test code = 1092) 23 mL/min/1.73 sq m ESTIMATED GFR IS NOT ACCURATE CREATININE CLEARANCE IN PREDICTING GLOMERULAR FILTRATION RATE. ESTIMATED GFR IS NOT APPLICABLE FOR DIALYSIS PATIENTS. URINALYSIS W/ REFLEX URINE [id number] 16:41:00* Test Item Value Reference Range Interpretation Comments COLOR (BEAKER) (test code = 470) Light Yellow CLARITY (BEAKER) (test code = 469) Clear SPECIFIC GRAVITY UA (BEAKER) (test code = 468) 1.008 1.001-1 .035 PH UA (BEAKER) (test code = 467) 5.0 5.0-8.0 PROTEIN UA (BEAKER) (test code = 464) Negative Negative GLUCOSE UA (BEAKER) (test code = 365) Negative Negative KETONES UA (BEAKER) (test code = 371) Negative Negative BILIRUBIN UA (BEAKER) (test code = 462) Negative Negative BLOOD UA (BEAKER) (test code = 461) Negative Negative NITRITE UA (BEAKER) (test code = 465) Negative Negative LEUKOCYTE ESTERASE UA (BEAKER) (test code = 466) Moderate Negat terrell A UROBILINOGEN UA (BEAKER) (test code = 463) 0.2 mg/dL 0.2-1.0 RBC UA (BEAKER) (test code = 519) 1 /HPF WBC UA (BEAKER) (test code = 520) 7 /HPF BACTERIA (BEAKER) (test code = 517) Rare SOURCE(BEAKER) (test code = 2795) PROTHROMBIN TIME/[id number] 16:40:00* Test Item Value Reference Range Interpretation Comments PROTIME (BEAKER) (test code = 759) 14.2 seconds 11.7-14.7 INR (BEAKER) (test code = 370) 1.1 <=5.9 RECOMMENDED COUMADIN/WARFARIN INR THERAPY RANGESSTANDARD DOSE: 2.0 - 3.0 Inclu anamaria: PROPHYLAXIS for venous thrombosis, systemic embolization; TREATMENT for venu ous thrombosis and/or pulmonary embolus.HIGH RISK: Target INR is 2.5-3.5 for pat ients with mechanical heart valves.[id number] 16:40:00* Test Item Value Reference Range Interpretation Comments PARTIAL THROMBOPLASTIN TIME (BEAKER) (test code = 760) 29.0 seconds 22.5-36.0 CBC W/PLT COUNT & AUTO [id number] 16:27:00* Test Item Value Reference Range Interpretation Comments WHITE BLOOD CELL COUNT (BEAKER) (test code = 775) 9.7 K/ L 3.5- 10.5 RED BLOOD CELL COUNT (BEAKER) (test code = 761) 4.07 M/ L 4.63-6 .08 L HEMOGLOBIN (BEAKER) (test code = 410) 11.3 GM/DL 13.7-17.5 L HEMATOCRIT (BEAKER) (test code = 411) 37.3 % 40.1-51.0 L MEAN CORPUSCULAR VOLUME (BEAKER) (test code = 753) 91.6 fL 79. 0-92.2 MEAN CORPUSCULAR HEMOGLOBIN (BEAKER) (test code = 751) 27.8 pg 25.7-32.2 MEAN CORPUSCULAR HEMOGLOBIN CONC (BEAKER) (test code = 752) 30.3 GM/DL 32.3-36.5 L RED CELL DISTRIBUTION WIDTH (BEAKER) (test code = 412) 16.3 % 11.6-14.4 H PLATELET COUNT (BEAKER) (test code = 756) 154 K/CU MM 150-450 MEAN PLATELET VOLUME (BEAKER) (test code = 754) 9.7 fL 9.4-12 .4 NUCLEATED RED BLOOD CELLS (BEAKER) (test code = 413) 0 /100 WBC 0 -0 NEUTROPHILS RELATIVE PERCENT (BEAKER) (test code = 429) 67 % LYMPHOCYTES RELATIVE PERCENT (BEAKER) (test code = 430) 16 % MONOCYTES RELATIVE PERCENT (BEAKER) (test code = 431) 11 % EOSINOPHILS RELATIVE PERCENT (BEAKER) (test code = 432) 5 % BASOPHILS RELATIVE PERCENT (BEAKER) (test code = 437) 1 % NEUTROPHILS ABSOLUTE COUNT (BEAKER) (test code = 670) 6.50 K/ L 1.78-5.38 H LYMPHOCYTES ABSOLUTE COUNT (BEAKER) (test code = 414) 1.55 K/ L 1.32-3.57 MONOCYTES ABSOLUTE COUNT (BEAKER) (test code = 415) 1.03 K/ L 0. 30-0.82 H EOSINOPHILS ABSOLUTE COUNT (BEAKER) (test code = 416) 0.48 K/ L 0.04-0.54 BASOPHILS ABSOLUTE COUNT (BEAKER) (test code = 417) 0.05 K/ L 0. 01-0.08 IMMATURE GRANULOCYTES-RELATIVE PERCENT (BEAKER) (test code = 2801) 1 % 0-1 MODIFIED BA. SWALLOW [place] [address] Patient Name: ARY ALEJO MR #: [id number] : 1935 Age/Sex: 82/M Req #: [id number] Adm Physician: Ordered by: AVILA HAMILTON MD Report #: [id number] Location: DX Room/Bed: Procedure: [id number] DX/MODIFIED BA. SWALLOW Exam Date: 07/31/17 Exam [...] f or complete details. Dictated by: Ary Burgos M.D. on 08/01/2017 at 1 4:12 Electronically approved by: Ary Burgos M.D. on 08/01/2017 at 14:12 Dictated By: ARY BURGOS MD 1412 Transcribed By: LAURITA on 08/01/17 1412 COPY TO: AVILA HAMILTON MD BA. SWALLOW [place] [address] Patient Name: ARY ALEJO MR #: [id number] : 1935 Age/Sex: 81/M Req #: [id number] Adm Physician: Ordered by: AVILA HAMILTON MD Report #: [id number] Location: DX Room/Bed: Procedure: [id number] DX/MODIFIED BA. SWALLOW Exam Date: 06/13/17 Exam [...] for comple te details. Dictated by: Uriah Milner M.D. on 06/13/2017 at 12:03 Electronically approved by: Uriah Milner M.D. on 06/13/2017 at 12:03 Dictated By: URIAH MILNER MD 1203 Transcribed By: LAURITA on 06/13/17 1203 COPY TO: AVILA HAMILTON MD RENAL RETROPERITONEAL COMP [place] [address] Patient Name: ARY ALEJO MR #: [id number] : 1935 Age/Sex: 81/M Req #: [id number] Adm Physician: Ordered by: DESHAUN RASCON MD Report #: [id number] Location: Room/Bed: Procedure: [id number] US/US RENAL RETROPERITONEAL CO MP Exam Date: [...] 04/06/17 1418 COPY TO: DESHAUN RASCON MD [facility] [place] [address] Patient Name: ARY ALEJO MR #: [id number] : 1935 Age/Sex: 81/M Req #: [id number] Adm Physician: Ordered by: DESHAUN RASCON MD Report #: [id number] Location: [facility] Room/Bed: Procedure: [id number] DX/ABDOMEN-1VIEW (KUB) Exam Date: 01/12/17 Exam Time: 1500 REPORT STATUS: S igned PROCEDURE: X-RAY ABDOMEN - KUB COMPARISON: Patients [facility] enter, CT, CT ABDOMEN/PELVIS WO, 07/29/2016, 14:11. Patients [facility], DX, ABDOMEN-1VIEW (KUB), 05/30/2016, 12:06. INDICATIONS: [...] pattern. No evidence of urolithia sis. Christina Foreman M.D. Dictated by: Major Bal on 01/12/2017 at 16:52 Electronically approved by: Christina lerma M.D. on 01/12/2017 at 16:52 Dictated By: MELISSA Shahid MD 51 Transcrib ed By: LAURITA on 01/12/171651 COPY TO: DESHAUN RASCON MD
[2019-08-14] MEDS ORDERED: ASPIRIN 81 MG CHEW TAB PO ONE (10:15)
[2019-08-14] MEDS ORDERED: CEFTRIAXONE SOD 1 GM/NS 50 ML 50 ML IV ONE (10:15)
[2019-08-14] MEDS ORDERED: PIPER-TAZ 3.375 GM 50 ML IV STA (10:46)
[2019-08-14 11:12] LABS: BASOPHILS # (AUTO) 0.1 (0.0-0.1); BASOPHILS % 0.5 % (0.0-1.0); EOSINOPHILS # (AUTO) 0.4 (0.0-0.4); HEMATOCRIT 31.4 % (38.2-49.6); HEMOGLOBIN 9.3 g/dL (14.0-18.0); LYMPHOCYTES # (AUTO) 1.8 (1.0-3.2); LYMPHOCYTES % 13.4 % (18.0-39.1); MEAN CORPUSCULAR HEMOGLOBIN 25.7 pg (28-32); MEAN CORPUSCULAR HGB CONC 29.6 g/dL (31-35); MEAN CORPUSCULAR VOLUME 86.7 fL (81-99); MONOCYTES # (AUTO) 1.2 (0.2-0.8); NEUTROPHILS # (AUTO) 9.7 (2.1-6.9); NEUTROPHILS % 73.4 % (38.7-80.0); PLATELET COUNT 226 x10e3/uL (140-360); RED BLOOD COUNT 3.62 x10e6/uL (4.3-5.7); RED CELL DISTRIBUTION WIDTH 18.8 % (11.7-14.4)
[2019-08-14] MEDS ORDERED: VANCOMYCIN 1GM/NS 250 ML 250 ML IV ONE (11:15)
--- NOTE | 2019-08-14 11:16 | Diagnostic Imaging Report ---
EXAMINATION: CHEST SINGLE (PORTABLE) INDICATION: Sepsis COMPARISON: Chest radiographs 06/13/2018, 03/13/2019 FINDINGS: LINES/TUBES:Right chest implanted device with leads coursing cranially. EKG leads overlie the chest. LUNGS:The lungs are well-inflated. No focal consolidation or pulmonary edema. PLEURA:No pleural effusion or pneumothorax. MEDIASTINUM:The cardiomediastinal silhouette appears normal in size and shape. Atherosclerotic calcifications of the thoracic aorta. BONES/SOFT TISSUES:No acute osseous injury. ABDOMEN:No free air under the diaphragm. IMPRESSION: No focal pneumonia or pulmonary edema. Signed by: Ryan Philip MD on 08/14/2019 11:13 AM
[2019-08-14 11:20] LABS: INR 1.09; PROTHROMBIN TIME 14.8 seconds (11.9-14.5)
[2019-08-14] MEDS ORDERED: ONDANSETRON HCL INJ 2MG/ML 2ML 2 MG/ML VIAL IV STA (11:26)
[2019-08-14 11:30] LABS: ALBUMIN 2.5 g/dL (3.5-5.0); ALBUMIN/GLOBULIN RATIO 0.5 (0.8-2.0); ANION GAP 19.3 mmol/L (8-16); CALCIUM 8.6 mg/dL (8.4-10.2); CREATININE, SERUM 9.21 mg/dL (0.72-1.25); POTASSIUM 4.3 mmol/L (3.5-5.1)
[2019-08-14 11:37] LABS: CREATINE KINASE MB 3.2 ng/mL (0-5.0)
[2019-08-14] MEDS ORDERED: MORPHINE SULFATE INJ 4 MG/ML INJ 1ML IV ONE (11:45)
--- OUTSIDE RECORDS SUMMARY | 2019-08-14 12:24 | XMS REPORT | Clinical Summary ---
Author Author [facility] TechnologiesK[facility]en[facility]Dig[facility] [place] Address Unknown Phone Unavailable Care Team Providers Care Garment Steamer Name Role Phone Dima Pace PCP Allergies [...] Taken Vital Sign Reading 03/19/2019 1:44 PM HEALTH CARE TECHNICIAN Blood Pressure 133/72 03/19/2019 1:44 PM HEALTH CARE TECHNICIAN Pulse 95 03/19/2019 1:44 PM HEALTH CARE TECHNICIAN Temperature 35.7 C (96.3 F) 03/19/2019 1:44 PM HEALTH CARE TECHNICIAN Respiratory Rate 18 03/19/2019 1:44 PM HEALTH CARE TECHNICIAN Oxygen Saturation 98% 03/19/2019 3:06 AM HEALTH CARE TECHNICIAN Inhaled Oxygen 25% Concentration 03/19/2019 6:52 AM HEALTH CARE TECHNICIAN Weight 129.2 kg (284 lb 13.4 oz) 03/16/2019 11:00 AM HEALTH CARE TECHNICIAN Height 185.4 cm (6' 1") 03/19/2019 6:52 AM HEALTH CARE TECHNICIAN Body Mass Index 37.58 Plan of Treatment Not on file Implants Device Identifier Shelf Expiration Date Model / Serial / L ot Implanted Type Area Manufactur er 02/27/2015 [id number] / [id number] / Neurostimulator,Activa Rc Bilateral Neuro Right: Leslie st [employer] 39cc - [id number] NEUROMODUL Implanted: Qty: 1 on 10/28/2013 by Pedro Pendleton MD 12/28/2018 [id number] / [id number] / Stimulator Neuro Activa Pc [id number] - Neuro Right: Ches t [employer]: [id number] NEUROMODUL Implanted: Qty: 1 on 08/10/2017 by Pedro Pendleton MD 01/01/2016 [id number] / / [id number] Pocket Adaptor 2x4 Right: Chest Implanted: Qty: 1 on 10/28/2013 by Pedro Garcias MD Procedures Comments Procedure Name Priority Date/Time Associated Diag nosis RHYTHM STRIP - SCAN 03/21/2019 8:50 AM HEALTH CARE TECHNICIAN POCT-GLUCOSE METER Routine 03/19/2019 12:23 PM HEALTH CARE TECHNICIAN HEMODIALYSIS INPATIENT Routine 03/19/2019 11:47 AM HEALTH CARE TECHNICIAN BASIC METABOLIC PANEL (7) Routine 03/19/2019 7:48 AM HEALTH CARE TECHNICIAN CBC W/PLT COUNT & AUTO Routine 03/19/2019 DIFFERENTIAL 4:57 AM HEALTH CARE TECHNICIAN CBC W/PLT COUNT & AUTO Routine 03/19/2019 DIFFERENTIAL 4:57 AM HEALTH CARE TECHNICIAN POCT-GLUCOSE METER Routine 03/18/2019 9:27 PM HEALTH CARE TECHNICIAN PERIPHERAL VASCULAR 03/18/2019 REPORT - SCAN 9:22 PM HEALTH CARE TECHNICIAN POCT-GLUCOSE METER Routine 03/18/2019 5:04 PM HEALTH CARE TECHNICIAN PROTHROMBIN TIME/INR Routine 03/18/2019 2:09 PM HEALTH CARE TECHNICIAN POCT-GLUCOSE METER Routine 03/18/2019 11:45 AM HEALTH CARE TECHNICIAN POCT-GLUCOSE METER Routine 03/18/2019 8:13 AM HEALTH CARE TECHNICIAN CBC W/PLT COUNT & AUTO Routine 03/18/2019 DIFFERENTIAL 4:10 AM HEALTH CARE TECHNICIAN CBC W/PLT COUNT & AUTO Routine 03/18/2019 DIFFERENTIAL 4:10 AM HEALTH CARE TECHNICIAN POCT-GLUCOSE METER Routine 03/17/2019 9:01 PM HEALTH CARE TECHNICIAN POCT-GLUCOSE METER Routine 03/17/2019 5:07 PM HEALTH CARE TECHNICIAN VENOUS DOPPLER ARM, RIGHT Routine 03/17/2019 4:10 PM HEALTH CARE TECHNICIAN IR AV SHUNT/FISTULAGRAM Routine 03/17/2019 2:31 PM HEALTH CARE TECHNICIAN HEMODIALYSIS INPATIENT Routine 03/17/2019 8:30 AM HEALTH CARE TECHNICIAN POCT-GLUCOSE METER Routine 03/17/2019 7:33 AM HEALTH CARE TECHNICIAN CBC W/PLT COUNT & AUTO Routine 03/17/2019 DIFFERENTIAL 4:00 AM HEALTH CARE TECHNICIAN CBC W/PLT COUNT & AUTO Routine 03/17/2019 DIFFERENTIAL 4:00 AM HEALTH CARE TECHNICIAN POCT-GLUCOSE METER Routine 03/16/2019 9:20 PM HEALTH CARE TECHNICIAN POCT-GLUCOSE METER Routine 03/16/2019 5:27 PM HEALTH CARE TECHNICIAN POCT-GLUCOSE METER Routine 03/16/2019 11:27 AM HEALTH CARE TECHNICIAN XR CHEST 2 VIEWS Routine 03/16/2019 8:24 AM HEALTH CARE TECHNICIAN POCT-GLUCOSE METER Routine 03/16/2019 7:53 AM HEALTH CARE TECHNICIAN CBC W/PLT COUNT & AUTO Routine 03/16/2019 DIFFERENTIAL 4:50 AM HEALTH CARE TECHNICIAN CBC W/PLT COUNT & AUTO Routine 03/16/2019 DIFFERENTIAL 4:50 AM HEALTH CARE TECHNICIAN MAGNESIUM Routine 03/16/2019 4:50 AM HEALTH CARE TECHNICIAN PHOSPHORUS Routine 03/16/2019 4:50 AM HEALTH CARE TECHNICIAN PROTHROMBIN TIME/INR Routine 03/16/2019 4:50 AM HEALTH CARE TECHNICIAN CALCIUM, IONIZED Routine 03/16/2019 4:50 AM HEALTH CARE TECHNICIAN BASIC METABOLIC PANEL (7) Routine 03/16/2019 4:50 AM HEALTH CARE TECHNICIAN POCT-GLUCOSE METER Routine 03/15/2019 9:01 PM HEALTH CARE TECHNICIAN XR CHEST 1 VIEW Routine 03/15/2019 PORTABLE/BEDSIDE 7:47 PM HEALTH CARE TECHNICIAN POCT-GLUCOSE METER Routine 03/15/2019 7:15 PM HEALTH CARE TECHNICIAN POCT-GLUCOSE METER Routine 03/15/2019 6:36 PM HEALTH CARE TECHNICIAN POCT-GLUCOSE METER Routine 03/15/2019 6:07 PM HEALTH CARE TECHNICIAN POCT-GLUCOSE METER Routine 03/15/2019 5:33 PM HEALTH CARE TECHNICIAN POCT-GLUCOSE METER Routine 03/15/2019 5:11 PM HEALTH CARE TECHNICIAN POCT-GLUCOSE METER Routine 03/15/2019 4:36 PM HEALTH CARE TECHNICIAN POCT-GLUCOSE METER Routine 03/15/2019 12:51 PM HEALTH CARE TECHNICIAN POCT-GLUCOSE METER Routine 03/15/2019 7:57 AM HEALTH CARE TECHNICIAN CBC W/PLT COUNT & AUTO Routine 03/15/2019 DIFFERENTIAL 5:06 AM HEALTH CARE TECHNICIAN HEMOGLOBIN A1C Routine 03/15/2019 5:06 AM HEALTH CARE TECHNICIAN CBC W/PLT COUNT & AUTO Routine 03/15/2019 DIFFERENTIAL 5:06 AM HEALTH CARE TECHNICIAN MAGNESIUM Routine 03/15/2019 5:06 AM HEALTH CARE TECHNICIAN PHOSPHORUS Routine 03/15/2019 5:06 AM HEALTH CARE TECHNICIAN PROTHROMBIN TIME/INR Routine 03/15/2019 5:06 AM HEALTH CARE TECHNICIAN CALCIUM, IONIZED Routine 03/15/2019 5:06 AM HEALTH CARE TECHNICIAN BASIC METABOLIC PANEL (7) Routine 03/15/2019 5:06 AM HEALTH CARE TECHNICIAN HEPATITIS B SURFACE Routine 03/15/2019 ANTIGEN 5:06 AM HEALTH CARE TECHNICIAN POCT-GLUCOSE METER Routine 03/14/2019 11:57 PM HEALTH CARE TECHNICIAN POCT-GLUCOSE METER Routine 03/14/2019 8:59 PM HEALTH CARE TECHNICIAN POCT-GLUCOSE METER Routine 03/14/2019 7:55 PM HEALTH CARE TECHNICIAN HEMODIALYSIS INPATIENT Routine 03/14/2019 7:05 PM HEALTH CARE TECHNICIAN POCT-GLUCOSE METER Routine 03/14/2019 5:33 PM HEALTH CARE TECHNICIAN POCT-GLUCOSE METER Routine 03/14/2019 12:19 PM HEALTH CARE TECHNICIAN SPUTUM CULTURE + GRAM Routine 03/14/2019 STAIN 9:36 AM HEALTH CARE TECHNICIAN POCT-GLUCOSE METER Routine 03/14/2019 7:35 AM HEALTH CARE TECHNICIAN CBC W/PLT COUNT & AUTO Routine 03/14/2019 DIFFERENTIAL 4:56 AM HEALTH CARE TECHNICIAN CBC W/PLT COUNT & AUTO Routine 03/14/2019 DIFFERENTIAL 4:56 AM HEALTH CARE TECHNICIAN MAGNESIUM Routine 03/14/2019 4:56 AM HEALTH CARE TECHNICIAN PHOSPHORUS Routine 03/14/2019 4:56 AM HEALTH CARE TECHNICIAN PROTHROMBIN TIME/INR Routine 03/14/2019 4:56 AM HEALTH CARE TECHNICIAN CALCIUM, IONIZED Routine 03/14/2019 4:56 AM HEALTH CARE TECHNICIAN BASIC METABOLIC PANEL (7) Routine 03/14/2019 4:56 AM HEALTH CARE TECHNICIAN CBC W/PLT COUNT & AUTO Routine 03/14/2019 DIFFERENTIAL 12:17 AM HEALTH CARE TECHNICIAN HEPATITIS B CORE Routine 03/14/2019 ANTIBODY, TOTAL 12:17 AM HEALTH CARE TECHNICIAN HEPATITIS B SURFACE Routine 03/14/2019 ANTIBODY 12:17 AM HEALTH CARE TECHNICIAN HEPATITIS B SURFACE Routine 03/14/2019 ANTIGEN 12:17 AM HEALTH CARE TECHNICIAN PHOSPHORUS Routine 03/14/2019 12:17 AM HEALTH CARE TECHNICIAN MAGNESIUM Routine 03/14/2019 12:17 AM HEALTH CARE TECHNICIAN COMPREHENSIVE METABOLIC Routine 03/14/2019 PANEL 12:17 AM HEALTH CARE TECHNICIAN PROTHROMBIN TIME/INR Routine 03/14/2019 12:17 AM HEALTH CARE TECHNICIAN CBC W/PLT COUNT & AUTO Routine 03/14/2019 DIFFERENTIAL 12:17 AM HEALTH CARE TECHNICIAN POCT-GLUCOSE METER Routine 03/13/2019 9:30 PM HEALTH CARE TECHNICIAN after 08/13/2018 Results * RHYTHM STRIP - SCAN (03/21/2019 8:50 AM HEALTH CARE TECHNICIAN) Narrative Performed At This result has an attachment that is n ot available. * POC-Glucose meter (03/19/2019 12:23 PM HEALTH CARE TECHNICIAN) Only the most recent of 28 results within the time period is included. POC-Glucose Meter 150 (H)Comment: : TESTED AT 70 - 110 mg/dL [address] [address]: Commercial Review Appraiser/Photo Machine Operator ID = [id number] for THIAGO MAXWELL Specimen Blood Performing Organization Address City/State/Zipcode Ph one Number [address] [facility] [facility] * HEMODIALYSIS INPATIENT (03/19/2019 11:47 AM HEALTH CARE TECHNICIAN) Narrative Performed At Estela Corea RN 03/19/2019 [...] * Basic Metabolic Panel (03/19/2019 7:48 AM HEALTH CARE TECHNICIAN) Only the most recent of 4 results within the time period is included. Sodium 138 136 - 145 meq/L [facility] Potassium 3.7 3.5 - 5.1 meq/L [facility] Chloride 102 98 - 107 meq/L [facility] CO2 29 22 - 29 meq/L [facility] BUN 18 7 - 21 mg/dL [facility] Creatinine 4.23 (H) 0.57 - 1.25 mg/dL [facility] Glucose 224 (H) 70 - 105 mg/dL [facility] Calcium 8.6 8.4 - 10.2 mg/dL [facility] EGFR 14Comment: ESTIMATED GFR IS mL/min/1.73 sq m [facility] NOT ACCURATE CREATININE [facility] CLEARANCE IN PREDICTING GLOMERULAR FILTRATION RATE. ESTIMATED GFR IS NOT APPLICABLE FOR DIALYSIS PATIENTS. Specimen Blood Performing Organization Address City/State/Zipcode Ph one Number [address] [facility] [facility] * CBC with platelet count + automated diff (03/19/2019 4:57 AM HEALTH CARE TECHNICIAN) Only the most recent of 7 results within the time period is included. WBC 10.1 3.5 - 10.5 K/L [facility] RBC 2.89 (L) 4.63 - 6.08 M/L [facility] Hemoglobin 8.5 (L) 13.7 - 17.5 GM/DL [facility] Hematocrit 27.5 (L) 40.1 - 51.0 % [facility] MCV 95.2 (H) 79.0 - 92.2 fL [facility] MCH 29.4 25.7 - 32.2 pg [facility] MCHC 30.9 (L) 32.3 - 36.5 GM/DL [facility] RDW 15.9 (H) 11.6 - 14.4 % [facility] Platelets 192 150 - 450 K/CU MM [facility] MPV 9.5 9.4 - 12.4 fL [facility] nRBC 0 0 - 0 /100 WBC [facility] % Neutros 72 % [facility] % Lymphs 13 % [facility] % Monos 8 % [facility] % Eos 5 % [facility] % Baso 1 % [facility] # Neutros 7.22 (H) 1.78 - 5.38 K/L [facility] # Lymphs 1.35 1.32 - 3.57 K/L [facility] # Monos 0.83 (H) 0.30 - 0.82 K/L [facility] # Eos 0.50 0.04 - 0.54 K/L [facility] # Baso 0.06 0.01 - 0.08 K/L [facility] Immature 1 0 - 1 % [facility] Granulocytes-Relative [facility] Specimen Blood Performing Organization Address City/[facility] Ph one Number [facility] [address] [place], [place] [address] [facility] * PERIPHERAL VASCULAR REPORT - SCAN (03/18/2019 9:22 PM HEALTH CARE TECHNICIAN) Narrative Performed At This result has an attachment that is n ot available. * Prothrombin time/INR (03/18/2019 2:09 PM HEALTH CARE TECHNICIAN) Only the most recent of 5 results within the time period is included. Protime 14.7 (H) 11.9 - 14.2 seconds [facility] INR 1.2 <=5.9 [facility] Specimen Blood Narrative Performed At Effective 08/28/2018: PT Reference Range Change [facility] New: 11.9-14.2Previous: 11.7-14.7 [facility] MEDICAL CE NTER RECOMMENDED COUMADIN/WARFARIN INR THERA PY RANGES STANDARD DOSE: 2.0-3.0Includes: PRO PHYLAXIS for venous thrombosis, systemic embolization; TREATMENT for venous thro mbosis and/or pulmonary embolus. HIGH RISK: Target INR is 2.5-3.5 for pa tients wiht mechanical heart valves. Performing Organization Address City/[facility] [place] Ph one Number [facility] [address] [place], [place] [address] [facility] * Venous doppler arm, right (03/17/2019 4:10 PM HEALTH CARE TECHNICIAN) Ejection Fraction [facility] ECHO HEARTLAB MKCKESSON CPACS Specimen Impressions Performed At Right Impression [facility] ECHO HEARTLAB 1. There is no deep [...] Upper Extremities Veins SLE ECHO HEARTLAB Demographics [facility] Patient NameARY ALEJO Date of Study 03/17/2019 DO MEDARDO 83 Visit [id number] Date of 1935 Referring [facility] Room Number 1026 Physician Director Records Management JEFF Spangler Physician Procedure Type of Study: [...] External Ris In - 03/18/2019 11:11 AM HEALTH CARE TECHNICIAN PV LAB - Upper Extremities Veins Demographics Patient Name ARY ALEJO Date of Study 03/17/2019 PETRA Age 83 Visit Number [id number] Gender Male Accession Number [id number] Date of 1935 Referring [facility] Room Number 1026 Physician Director Records Management Ramin Giraldo Interpreting ELICIA Giles Physician Procedure [...] Performing Organization Address City/State/Zipcode Ph one Number [facility] ECHO HEARTLAB MKMELINDAESSALEX CPACS * IR AV Shunt/Fistulagram (03/17/2019 2:31 PM HEALTH CARE TECHNICIAN) Specimen Narrative Performed At FINAL REPORT RIS Right upper extremity AV fistulogram, 03/07/2019. History: AV fistula malfunction. Modality: Fluoroscopy Sedation: None Anesthesia:Two percent Lidocaine wi thout epinephrine. Approach:Left upper extremity AV fi stula Estimated blood loss:< 5 cc. Specimen: None. mac operator: Tim Zepeda MD. Economic Consultant: Mor. Fluoroscopy Time: 0.2 min. Reference Air [...] The central veins are patent. [facility]ed [facility] jugular hemod[facility] catheter is in place. Impression: No hemodynamically significant stenosis or thrombosis of the right upper extremity fistula. Signed: Tim Zepeda MD Report Verified Date/Time: 9 05:41:14 Reading Location: [facility] P048 Angio Bod y Reading Room Procedure Note Interface, External Ris In - 03/20/2019 5:43 AM HEALTH CARE TECHNICIAN FINAL REPORT Right upper extremity AV fistulogram, 03/07/2019. History: AV fistula malfunction. Modality: Fluoroscopy Sedation: None Anesthesia: Two percent Lidocaine without epinephrine. Approach: Left upper extremity AV fistula Estimated blood loss: < 5 cc. Specimen: None. mac operator: Tim Zepeda MD. Economic Consultant: Mor. Fluoroscopy Time: 0.2 min. Reference Air [...] Report Verified Date/Time: 03/20/2019 05:41:14 Reading Location: [facility] P048 Angio Body Reading Room Performing Organization Address City/State/Zipcode Ph one Number [facility] RIS * XR chest 2 views (03/16/2019 8:24 AM HEALTH CARE TECHNICIAN) Specimen Narrative Performed At FINAL REPORT [employer] CHEST, AP AND LATERAL. HISTORY: Cough. COMPARISON: 03/15/2019. Impression: Right IJ tunneled dialysis catheter palak ntified in stable position. Electronic stimulator device with leads extending cephalad out of the [id number] again noted. The trachea is midline. There are bibas ilar opacity suggestive of atelectasis. There is no evidence for l arge focal consolidation, pneumothorax, or significant pleural ef fusion. The cardiomediastinal silhouette is stable in appearance. No acute osseous abnormality is identified. Signed: Mitchel Gar MD Report Verified Date/Time: 9 09:36:48 Reading Location: [facility] C013Y CT Body Reading Room Procedure Note Interface, External Ris In - 03/16/2019 9:39 AM HEALTH CARE TECHNICIAN FINAL REPORT CHEST, AP AND LATERAL. HISTORY: Cough. COMPARISON: 03/15/2019. Impression: Right IJ tunneled dialysis catheter identified in stable position. Electronic stimulator device with leads extending cephalad out of the [id number] again noted. The trachea is midline. There are bibasilar opacity suggestive of atelectasis. There is no evidence for large focal consolidation, pneumothorax, or significant pleural effusion. The cardiomediastinal silhouette is stable in appearance. No acute osseous abnormality is identified. Signed: Mitchel Gar MD Report Verified Date/Time: 03/16/2019 09:36:48 Reading Location: [place] 19566Y CT Body Reading Room Performing Organization Address [facility] [place] [place] Ph one Number GE RIS * Calcium, Ionized (03/16/2019 4:50 AM HEALTH CARE TECHNICIAN) Only the most recent of 3 results within the time period is included. Calcium, Ion 1.05 (L) 1.12 - 1.27 mmol/L [facility] pH, Blood 7.44 [facility] Specimen Blood Performing Organization Address [facility] [place] [place] Ph one Number [address] [facility] * Phosphorus (03/16/2019 4:50 AM HEALTH CARE TECHNICIAN) Only the most recent of 4 results within the time period is included. Phosphorus 2.6 2.3 - 4.7 mg/dL [facility] Specimen Blood Performing Organization Address [facility] [place] [place] Ph one Number [address] [facility] * Magnesium (03/16/2019 4:50 AM HEALTH CARE TECHNICIAN) Only the most recent of 4 results within the time period is included. Magnesium 1.8 1.6 - 2.6 mg/dL [facility] Specimen Blood Performing Organization Address City/[facility] Ph one Number [facility] [address] [place], [place] [facility] [facility] * XR chest 1 view portable / bedside (03/15/2019 7:47 PM HEALTH CARE TECHNICIAN) Specimen Narrative Performed At FINAL REPORT GE [...] External Ris In - 03/16/2019 5:35 AM HEALTH CARE TECHNICIAN FINAL REPORT RAD, CHEST, 1 VIEW, NON [...] Verified Date/Time: 03/16/2019 05:33:32 Performing Organization Address City/[facility]/Zipcode Ph one Number GE RIS * Hepatitis B surface antigen (03/15/2019 5:06 AM HEALTH CARE TECHNICIAN) Only the most recent of 2 results within the time period is included. HBsAg Screen Nonreactive Nonreactive [facility] Specimen Blood Performing Organization Address City/[facility] one Number [address] [facility] * Hemoglobin A1c (03/15/2019 5:06 AM HEALTH CARE TECHNICIAN) Hemoglobin A1C 7.8 (H) 4.3 - 6.1 % [facility] Specimen Blood Performing Organization Address [facility] one Number [address] [facility] * HEMODIALYSIS INPATIENT (03/14/2019 7:05 PM HEALTH CARE TECHNICIAN) Narrative Performed At Pawel Gomez RN 03/14/2019 7:07 PM Lab Results Component Value Date WBC 8.8 03/14/2019 HGB 8.7 (L) 03/14/2019 HCT 28.4 (L) 03/14/2019 MCV 94.7 (H) 03/14/2019 PLT 218 03/14/2019 HD treatement [id number] completed tolerat ed well,UF 3.5liters removed,no complaints.Pawel Gomez RN * Sputum Culture + Gram Stain (03/14/2019 9:36 AM HEALTH CARE TECHNICIAN) Result 2+ Methicillin resistant [facility] Staphylococcus aureus (A) [facility] Gram Stain Result <1+ White blood cells seen [facility] Gram Stain Result 0-5 epithelial cells [facility] Gram Stain Result 2+ gram positive cocci in [facility] Specimen Sputum - Expectorated Narrative Performed At 4+ Normal respiratory erick present [facility] Antibiotic Method Susceptibility Organism [...] Methicillin resistant Staphylococcus aureus Performing Organization Address City/[facility] one Number [address] [facility] * Hepatitis B core antibody, total (03/14/2019 12:17 AM HEALTH CARE TECHNICIAN) Hep B Core Total Ab Nonreactive Nonreactive [facility] Specimen Blood Performing Organization Address City/[facility] one Number [address] [facility] * Hepatitis B surface antibody (03/14/2019 12:17 AM HEALTH CARE TECHNICIAN) Hep B S Ab 67.5 (H) <8.0 mIU/mL [facility] Specimen Blood Performing Organization Address [facility] one Number [address] [facility] * Comprehensive metabolic panel (03/14/2019 12:17 AM HEALTH CARE TECHNICIAN) Protein, Total 6.2 6.0 - 8.3 gm/dL [facility] Albumin 3.1 (L) 3.5 - 5.0 g/dL [facility] Alkaline Phosphatase 89 40 - 150 U/L [facility] Total Bilirubin 0.5 0.2 - 1.2 mg/dL [facility] Sodium 136 136 - 145 meq/L [facility] Potassium 3.6 3.5 - 5.1 meq/L [facility] Chloride 98 98 - 107 meq/L [facility] CO2 30 (H) 22 - 29 meq/L [facility] BUN 26 (H) 7 - 21 mg/dL [facility] Creatinine 5.11 (H) 0.57 - 1.25 mg/dL [facility] Glucose 279 (H) 70 - 105 mg/dL [facility] Calcium 8.4 8.4 - 10.2 mg/dL [facility] AST 11 5 - 34 U/L [facility] ALT 17 6 - 55 U/L [facility] EGFR 11Comment: ESTIMATED GFR IS mL/min/1.73 sq m [facility] NOT ACCURATE CREATININE [facility] CLEARANCE IN PREDICTING GLOMERULAR FILTRATION RATE. ESTIMATED GFR IS NOT APPLICABLE FOR DIALYSIS PATIENTS. Specimen Blood Performing Organization Address City/State/Zipcode Ph one Number [address] [facility] after 08/13/2018 Insurance Payer Benefit Subscriber ID Type Phone Address Plan / Group MEDICARE MEDICARE A xxxxxxxxxxx Medicare B MCR SUPPLEMENT/INDIVIDUAL AARP/UNITE xxxxxxxxxxx [facility] D HEALTHCARE Ary Alejo Personal/F Self 1935 [id number] (Home) [facility] [place] [phone] Advance Directives For more information, please contact: [address] [phone] Date Inactivated Comments Code Status Date Activated 03/19/2019 4:01 PM Full Code 03/13/2019 11:30 PM This code status was determined by: Patient 03/13/2019 11:30 PM Full Code 03/13/2019 8:08 PM This code status was determined by: Patient 08/10/2017 6:21 PM Full Code 08/10/2017 7:20 AM This code status was determined by: Patient
--- OUTSIDE RECORDS SUMMARY | 2019-08-14 12:26 | XMS REPORT ---
Author Author [facility] t Organization [facility] Address [address] [place] [address] Phone Unavailable Care Team Providers Care Prep Manager Name Role Phone WELLINGTON PACE MD PCP Dave POLANCO Attphys Unavailable WELLINGTON PACE Attphys Unavailable David WHALEY, Wilian Pang Attphys GASPER, KURTIS Attphys Unavailable WILFRIDO ADDISON Attphys Unavailable Matthew ORNELAS Attphys Unavailable DESHAUN RASCON Attphys Unavailable RADHA GARCIAS Attphys Unavailable AVILA HAMILTON Attphys Unavailable WELLINGTON PAEC Admphys Unavailable GASPER, KURTIS Admphys Unavailable HERNANDEZ ROBINSONRODRIGUE Admphys Unavailable YUNIEL, RADHA Admphys Unavailable Payers Payer Name Policy Type Policy Number Effective Date Expiration Date Dave bustamante [facility] [id number] 2019 00:00:[address] [facility] Medicare A & B [id number] 2001 00:00:00 [facility] [id number] 2019 00:00:[address] [facility] Medicare A & B [id number] 2001 00:00:00 [facility] [id number] 2018 00:00:[address] [facility] Medicare A & B [id number] 2001 00:00:[address] [facility] Medicare A & B [id number] 2001 00:00:00 C [facility] [id number] [facility] Medicare A & B [id number] 2001 00:00:00 C [facility] [id number] [facility] [id number] 2017 00:00:[address] [facility] Medicare A & B [id number] 2001 00:00:00 C [facility] [id number] 2017 00:00:[address] [facility] Medicare A & B [id number] 2001 00:00:00 C [facility] [id number] 2017 00:00:[address] [facility] Medicare A & B [id number] 2001 00:00:00 C [facility] [id number] 2017 00:00:00 [facility] Medicare A & B [id number] 2001 00:00:00 C [facility] AARP [id number] 2017 00:00:00 [facility] Medicare A & B [id number] 2001 00:00:00 C [facility] Problems Condition Name Condition Details Condition Category Status Onset Date Resolution Date Last Treatment Date Treating Clinician Comments Source Cystitis Cystitis Problem Active 2014-01-27 00:00:00 [facility] Urinary tract infection Urinary tract infection Problem Active 2014-01-27 00:00:00 [facility] Diarrhea Diarrhea Problem Active [facility] Cellulitis Cellulitis Problem Active C [facility] Foreign body in right foot Foreign body in right foot Problem Active [facility] Allergies, Adverse Reactions, Alerts Allergy Name Allergy Type Status Severity Reaction(s) Onset Date Inacti ve Date Treating Clinician Comments Source ceftriaxone DA Active SV 2019-02-01 00:00:00 [facility] ceftriaxone DA Active 2019-01-16 00:00:00 [facility] ceftriaxone DA Active SV 2018-11-09 00:00:00 [facility] No Known Allergies DA Active U 2018-01-07 00:00:00 [facility] Ceftriaxone Allergy to Substance Active Severe 2017-12-22 00:00:00 [facility] No Known Allergies DA Active U 2016-07-28 00:00:00 [facility] Medications Ordered Medication Name Filled Medication Name Start Date Stop Da te Current Medication? Ordering Clinician Indication Dosage Frequency Signature (SIG) Comments Components Source Atenolol 50 Mg Tablet Atenolol 50 Mg Tablet 2019-04-23 00:00:00 Yes Briana Olivas Geography Instructor 25 Daily [facility] Allopurinol 300 Mg Tablet Allopurinol 300 Mg Tablet Yes 300 Daily [facility] Calcium Acetate 667 Mg Capsule Calcium Acetate 667 Mg Capsule Yes 667 Before Meals [facility] Gabapentin 300 Mg Capsule Gabapentin 300 Mg Capsule Yes 300 As Needed for Nerve Pain [facility] Insulin Human Nph (Humulin N) 100 Units/Ml Ml Insulin Human Nph (Humulin N) 100 Units/Ml Ml Yes 60 Daily [facility] Insulin Human Nph (Humulin N) 100 Units/Ml Ml Insulin Human Nph (Humulin N) 100 Units/Ml Ml Yes 60 Bedtime [facility] Insulin Regular, Human (Humulin R) 100 Unit/1 Ml Vial Insulin Regular, Human (Humulin R) 100 Unit/1 Ml Vial Yes 40 Before Meals [facility] Levothyroxine Sodium 88 Mcg Tablet Levothyroxine Sodium 88 Mcg Tablet Yes 88 Daily [facility] Montelukast Sodium 10 Mg Tablet Montelukast Sodium 10 Mg Tablet Yes 10 Daily [facility] Pantoprazole Sodium (Protonix) 40 Mg Tablet. Pantopr azole Sodium (Protonix) 40 Mg Tablet. Yes 40 Daily [facility] Tamsulosin Hcl (Flomax*) 0.4 Mg Cap Tamsulosin Hcl (Flomax*) 0.4 Mg C ap Yes .4 Daily [facility] Warfarin Sodium (Coumadin*) 3 Mg Tablet Warfarin Sodium (Cou madin*) 3 Mg Tablet Yes 4 Today At 5:00PM [facility] Gabapentin 300 Mg Capsule, 300 Mg Oral Gabapentin 300 Mg Capsule , 300 Mg Oral 2019-05-13 00:00:00 No 300 Every 8 Hours as nee ded for Pain [facility] Sevelamer Hcl (Renagel) 800 Mg Tablet, 1600 Mg Oral Se velamer Hcl (Renagel) 800 Mg Tablet, 1600 Mg Oral 2019-05-13 00:00:00 No 1600 Three Times A Day [facility] Atenolol 50 Mg Tablet, 50 Mg Oral Atenolol 50 Mg Tablet, 50 Mg O ral 2019-04-17 00:00:00 No 50 Daily [facility] Furosemide 40 Mg Tablet, 40 Mg Oral Furosemide 40 Mg Tablet, 40 Mg Oral 2019-04-17 00:00:00 No 40 Twice A Day [facility] Isosorbide Mononitrate (Isosorbide Mononitrate Er) 30 Mg Tab.er.24h, 60 Mg Oral Isosorbide Mononitrate (Isosorbide Mononitrate Er) 30 Mg Tab.er.24h, 60 Mg Oral 2019-04-17 00:00:00 No 60 Daily [facility] Losartan Potassium (Cozaar) 50 Mg Tab, 1 Tab Oral Losa rtan Potassium (Cozaar) 50 Mg Tab, 1 Tab Oral 2019-04-17 00:00:00 No 1 Daily [facility] [place]-3 Fatty Acids/Fish Oil (Fish Oil 1 ,200 Mg Softgel) 1 Each Capsule, 1 Cap Oral [place]-3 Fatty Acids/Fish Oil (Fish Oil 1 ,200 Mg Softgel) 1 Each Capsule, 1 Cap Oral 2019-04-17 00:00:00 No 1 Twice A Day [facility] Atenolol 50 Mg Tablet, 25 Mg Oral Atenolol 50 Mg Tablet, 25 Mg O ral 2016-07-29 00:00:00 No 25 Bedtime [facility] Insulin Human Regular (Humulin R U-500*) 500 Unit/1 Ml Inj, Units Sub-Q Insulin Human Regular (Humulin R U-500*) 500 Unit/1 Ml Inj, Units Sub-Q 2016-07-29 00:00:00 No Before Meals [facility] Isosorbide Mononitrate 60 Mg Tab.er.24h, 10 Mg Oral Is osorbide Mononitrate 60 Mg Tab.er.24h, 10 Mg Oral 2016-07-29 00:00:00 No 10 E very Morning [facility] Aspirin 325 Mg Tablet, 325 Mg Oral Aspirin 325 Mg Tablet, 325 Mg Oral 2015-09-15 00:00:00 No 325 Bedtime [facility] Insulin Human Regular (Humulin R U-500*) 500 Unit/1 Ml Inj, 32 Units Sub-Q Insulin Human Regular (Humulin R U-500*) 500 Unit/1 Ml Inj, 32 Units Sub-Q 2015-09-15 00:00:00 No 32 Before Breakfast [facility] Insulin Human Regular (Humulin R U-500*) 500 Unit/1 Ml Inj, 28 Units Sub-Q Insulin Human Regular (Humulin R U-500*) 500 Unit/1 Ml Inj, 28 Units Sub-Q 2015-09-15 00:00:00 No 28 Before Lunch [facility] Sulfamethoxazole/Trimethoprim (Bactrim Ds Tablet) 1 Ea ch Tablet, 1 Tab Oral Sulfamethoxazole/Trimethoprim (Bactrim Ds Tablet) 1 Each Tablet, 1 Tab Oral 2015-09-15 00:00:00 No 1 Twice A Day [facility] Asa/Calcium Carb/Mag/Al Hydrox (Ascripti n 325 Mg Tablet) 325 Mg Tablet, 325 Mg Oral Asa/Calcium Carb/Mag/Al Hydrox (Ascripti n 325 Mg Tablet) 325 Mg Tablet, 325 Mg Oral 2012-10-21 00:00:00 No 325 Every Morning [facility] Klor-Con , 10 Meq Oral Klor-Con , 10 Meq Oral 2012-10-21 00:00:00 No 10 Daily [facility] Levothyroxine Sodium 75 Mcg Tablet, 75 Mcg Oral Levoth yroxine Sodium 75 Mcg Tablet, 75 Mcg Oral 2012-10-21 00:00:00 No 75 Zuleyma y [facility] Tricor , 48 Mg Oral Tricor , 48 Mg Oral 2012-10-21 00:00:00 No 48 Bedtime [facility] Humulin R 500 , Humulin R 500 , 2012-06-04 00:00:00 No [facility] Levothyroxine Sodium (Synthroid) 100 Mcg Tablet, 100 M cg Oral Levothyroxine Sodium (Synthroid) 100 Mcg Tablet, 100 Mcg Oral 2012-06-04 00:00:00 N o 100 Daily [facility] Insulin Regular, Human (Humulin R) 500 Unit/1 Ml Vial, 24 Units Subcutaneously Insulin Regular, Human (Humulin R) 500 Unit/1 Ml Vial, 24 Units Subcutaneously 2011-11-24 00:00:00 No 24 Before Breakfast [facility] Insulin Regular, Human (Humulin R) 500 Unit/1 Ml Vial, 22 Units Subcutaneously Insulin Regular, Human (Humulin R) 500 Unit/1 Ml Vial, 22 Units Subcutaneously 2011-11-24 00:00:00 No 22 Before Lunch [facility] Insulin Regular, Human (Humulin R) 500 Unit/1 Ml Vial, 18 Units Subcutaneously Insulin Regular, Human (Humulin R) 500 Unit/1 Ml Vial, 18 Units Subcutaneously 2011-11-24 00:00:00 No 18 Before Dinner [facility] Procedures Procedure Date / Time Performed Performing Clinician [facility] e Excision of neuroma 2019-05-20 00:00:00 JAYCEE HUDDLESTON [facility] PERFORMANCE OF URINARY FILTRATION, <6 HRS/DAY 2019-04-25 00:00:0 0 [facility] PERFORMANCE OF URINARY FILTRATION, <6 HRS/DAY 2019-04-23 00:00:0 0 [facility] PLAIN RADIOGRAPHY OF ABDOMINAL AORTA USING L OSM CONTRAST 20 21-04-19 00:00:00 [facility] PLAIN RADIOGRAPHY OF R LOW EXTREM ART USING L OSM CONTRAST 2 00:00:00 [facility] PERFORMANCE OF URINARY FILTRATION, <6 HRS/DAY 2019-04-21 00:00:0 0 [facility] PERFORMANCE OF URINARY FILTRATION, <6 HRS/DAY 2019-04-18 00:00:0 0 [facility] Encounters Start Date/Time End Date/Time En[facility] ID Source 2019-05-13 15:20:00 2019-05-23 20:36:00 Discharged Inpatient 3 ALECIA WELLINGTON [facility] [id number] [facility] 2019-05-06 09:56:20 2019-05-06 10:37:05 Office Visit Poly Renner [facility] [id number] 2019-04-17 14:05:00 2019-04-25 13:52:00 Discharged Inpatient 1 WELLINGTON PACE [facility] [id number] [facility] 2019-03-13 12:59:00 2019-03-13 17:06:00 Departed Emergency Room 1 WILFRIDO ADDISON [facility] [id number] [facility] 2018-11-06 11:57:00 2018-11-06 12:28:00 Departed Emergency Room [facility] [id number] [facility] 2018-06-13 20:31:00 2018-06-13 23:34:00 Departed Emergency Room 1 MICKEY ORNELAS [facility] [id number] [facility] 2017-12-21 18:38:00 2018-01-07 21:10:00 Discharged Inpatient 1 WELLINGTON PACE [facility] [id number] [facility] 2017-10-31 17:25:00 2017-10-31 17:25:00 Registered Clinic 3 MYRONDESHAUN SHELTON [facility] [id number] [facility] 2017-08-31 12:40:00 2017-09-29 23:59:00 Discharged Recurring [facility] [id number] [facility] 2017-09-05 11:32:00 2017-09-05 11:32:00 Registered Clinic 3 WELLINGTON PACE [facility] [id number] [facility] 2017-08-06 11:57:00 2017-08-30 23:59:00 Discharged Recurring [facility] [id number] [facility] 2017-07-31 12:21:00 2017-07-31 12:21:00 Registered Clinic EL AVILA HAMILTON [facility] [id number] [facility] 2017-07-03 09:52:00 2017-07-30 23:59:00 Discharged Recurring [facility] [id number] [facility] 2017-06-19 15:43:00 2017-06-19 17:03:00 Departed Emergency Room [facility] [id number] [facility] 2017-06-13 08:09:00 2017-06-13 08:09:00 Registered Clinic AVILA WILKINSON [facility] [id number] [facility] 2017-04-06 12:04:00 2017-04-06 12:04:00 Registered Clinic RYAN RASCON [facility] [id number] [facility] 2017-01-12 14:43:00 2017-01-12 14:43:00 Registered Clinic [facility] [id number] [facility] Results Test Description Test Time Test Comments Results Result Comments Source CHEST SINGLE (PORTABLE) 2019-08-14 11:12:00 [facility] [address] [place] [address] Patient Name: ARY ALEJO MR #: [id number] : 1935 Age/Sex: 84/M Req #: [id number] Adm Physician: Ordered by: DICKSON POLANCO DO Report #: [id number] Location: ER Room/Bed: Procedure: [id number] DX/CHEST SINGLE (PORTABLE) Exam Date: 08/14/19 Exam Time: 1037 REPORT STATUS: Signed EXAMINATION: CHEST SINGLE (PORTABLE) INDICATION: Sepsis COMPARISON: Chest radiographs 06/13/2018, 03/13/2019 FINDINGS: LINES/TUBES:Right chest implanted device with leads coursing cranially. EKG leads overlie the chest. LUNGS :The lungs are well-inflated. No focal consolidation or pulmonary edema. PLEURA:No pleural effusion or pneumothorax. MEDIASTINUM:The cardiomediastinal silhouette appears normal in size and shape. Atherosclerotic calcifications of the thoracic aorta. BONES/SOFT TISSUES:No acute osseous injury. ABDOMEN:No free air under the diaphragm. IMPRESSION: No focal pneumonia or pulmonary edema. Signed by: Tracy Sarabia MD on 08/14/2019 11:13 AM Dictated By: TRACY SARABIA MD 1113 Transcribed By: SALVADOR on 08/14/19 1113 COPY TO: DICKSON POLANCO DO Sodium Level 2019-05-23 11:21:00 Test Item Sodium Level (test code = 2951-2) 136 136-145 [facility]Potassium Znvat2144-81-81 11:21:00* Test Item Value Reference Range Interpretation Comments Potassium Level (test code = 2823-3) 4.6 3.5-5.1 [facility] HospitalChloride Bxcgb5215-72-65 11:21:00* Test Item Value Reference Range Interpretation Comments Chloride Level (test code = 2075-0) 101 98-107 [facility] HospitalCarbon Dioxide Wpqqw6990-80-14 11:21:00* Test Item Value Reference Range Interpretation Comments Carbon Dioxide Level (test code = 2028-9) 26 22-29 [facility] HospitalAnion Dyy8044-93-46 11:21:00* Test Item Value Reference Range Interpretation Comments Anion Gap (test code = 26806-7) 13.6 8-16 [facility] HospitalBlood Urea Tzedfmra4293-08-35 11:21:00* Test Item Value Reference Range Interpretation Comments Blood Urea Nitrogen (test code = 3094-0) 39 7-26 [facility] HospitalCreatinine2020-02-21 11:21:00* Test Item Value Reference Range Interpretation Comments Creatinine (test code = 2160-0) 7.22 0.72-1.25 [facility] HospitalBUN/Creatinine Fonlr8308-63-30 11:21:00* Test Item Value Reference Range Interpretation Comments BUN/Creatinine Ratio (test code = 3097-3) 5 6-25 [facility] HospitalEstimat Glomerular Filtration Rate 2019-05-23 11:21:00* Test Item Value Reference Range Interpretation Comments Estimat Glomerular Filtration Rate (test code = 322695399) 7 >60 Ranges were taken from the National Kidney Disease Education Program and the [facility] Kidney Foundation literature.Reference ranges:60 or greater: Wwocif20-39 ( for 3 consecutive months): Chronic kidney disease 15 or less: Kidney failureMemorial Hermann Katy HospitalGlucose Vzavn2935-62-98 11:21:00* Test Item Value Reference Range Interpretation Comments Glucose Level (test code = CIL2601) 179 74-118 [facility] HospitalCalcium Milic5593-81-24 11:21:00* Test Item Value Reference Range Interpretation Comments Calcium Level (test code = 37695-8) 9.0 8.4-10.2 [facility] HospitalWhite Blood Vcbsw2032-15-70 10:47:00* Test Item Value Reference Range Interpretation Comments White Blood Count (test code = 6690-2) 8.00 4.8-10.8 [facility] HospitalRed Blood Tzpfi0495-79-91 10:47:00* Test Item Value Reference Range Interpretation Comments Red Blood Count (test code = 789-8) 3.11 4.3-5.7 [facility] HospitalHemoglobin2020-02-21 10:47:00* Test Item Value Reference Range Interpretation Comments Hemoglobin (test code = 21661-6) 8.8 14.0-18.0 [facility] HospitalHematocrit2020-02-21 10:47:00* Test Item Value Reference Range Interpretation Comments Hematocrit (test code = 4544-3) 29.2 38.2-49.6 [facility] HospitalMean Corpuscular Wbyovc4149-05-02 10:47:00* Test Item Value Reference Range Interpretation Comments Mean Corpuscular Volume (test code = 787-2) 93.9 81-99 [facility] HospitalMean Corpuscular Zamjwcfdkg9103-48-30 10:47:00* Test Item Value Reference Range Interpretation Comments Mean Corpuscular Hemoglobin (test code = 785-6) 28.3 28-32 [facility] HospitalMean Corpuscular Hemoglobin Concent 2019-05-23 10:47:00* Test Item Value Reference Range Interpretation Comments Mean Corpuscular Hemoglobin Concent (test code = 786-4) 30.1 31-35 [facility] HospitalRed Cell Distribution Ecvee5581-34-40 10:47:00* Test Item Value Reference Range Interpretation Comments Red Cell Distribution Width (test code = 81534-8) 15.9 11.7 -14.4 [facility] HospitalPlatelet Wttif3848-21-61 10:47:00* Test Item Value Reference Range Interpretation Comments Platelet Count (test code = 777-3) 134 140-360 [facility] HospitalNeutrophils (%) (Auto)2019-05-23 10:47:00 * Test Item Value Reference Range Interpretation Comments Neutrophils (%) (Auto) (test code = 41093-6) 71.0 38.7-80.0 [facility] HospitalLymphocytes (%) (Auto)2019-05-23 10:47:00 * Test Item Value Reference Range Interpretation Comments Lymphocytes (%) (Auto) (test code = 736-9) 12.3 18.0-39.1 [facility] HospitalMonocytes (%) (Auto)2019-05-23 10:47:00* Test Item Value Reference Range Interpretation Comments Monocytes (%) (Auto) (test code = 5905-5) 10.6 4.4-11.3 [facility] HospitalEosinophils (%) (Auto)2019-05-23 10:47:00 * Test Item Value Reference Range Interpretation Comments Eosinophils (%) (Auto) (test code = 713-8) 4.8 0.0-6.0 [facility] HospitalBasophils (%) (Auto)2019-05-23 10:47:00* Test Item Value Reference Range Interpretation Comments Basophils (%) (Auto) (test code = 706-2) 0.8 0.0-1.0 [facility] HospitalIM GRANULOCYTES %2019-05-23 10:47:00* Test Item Value Reference Range Interpretation Comments IM GRANULOCYTES % (test code = IM GRANULOCYTES %) 0.5 0.0- 1.0 [facility] HospitalNeutrophils # (Auto)2019-05-23 10:47:00* Test Item Value Reference Range Interpretation Comments Neutrophils # (Auto) (test code = 751-8) 5.7 2.1-6.9 [facility] HospitalLymphocytes # (Auto)2019-05-23 10:47:00* Test Item Value Reference Range Interpretation Comments Lymphocytes # (Auto) (test code = 59129-9) 1.0 1.0-3.2 [facility] HospitalMonocytes # (Auto)2019-05-23 10:47:00* Test Item Value Reference Range Interpretation Comments Monocytes # (Auto) (test code = 742-7) 0.9 0.2-0.8 [facility] HospitalEosinophils # (Auto)2019-05-23 10:47:00* Test Item Value Reference Range Interpretation Comments Eosinophils # (Auto) (test code = 711-2) 0.4 0.0-0.4 [facility] HospitalBasophils # (Auto)2019-05-23 10:47:00* Test Item Value Reference Range Interpretation Comments Basophils # (Auto) (test code = 704-7) 0.1 0.0-0.1 [facility] HospitalAbsolute Immature Granulocyte (auto 2019-05-23 10:47:00* Test Item Value Reference Range Interpretation Comments Absolute Immature Granulocyte (auto (surya t code = Absolute Immature Granulocyte (auto) 0.04 0-0.1 [facility] HospitalBedside Lvabiux8754-03-60 08:28:00* Test Item Value Reference Range Interpretation Comments Bedside Glucose (test code = 61080-0) 158 70-120 Meter ID: [id number] Creek Surgical HospitalProthrombin Time 2019-05-20 17:31:00* Test Item Value Reference Range Interpretation Comments Prothrombin Time (test code = 5902-2) 19.1 11.9-14.5 [facility] HospitalProthromb Time International Ratio 2019-05-20 17:31:00* Test Item Value Reference Range Interpretation Comments Prothromb Time International Ratio (test code = 6301-6) 1.50 Oral Anticoagulant Therapy INR Values:1. Low Intensity Therapy 1.5 - 2.02 . Moderate Intensity Therapy 2.0 - 3.03. High Intensity Therapy(1) 2.5 - 3. 54. High Intensity Therapy(2) 3.0 - 4.05. Panic Value INR > 5.0 [facility] Gsukfogxs5842-01-24 16:07:00* Test Item Value Reference Range Interpretation Comments Total Bilirubin (test code = 1975-2) 0.4 0.2-1.2 [facility] HospitalAspartate Amino Transf (AST/SGOT) 2019-05-16 16:07:00* Test Item Value Reference Range Interpretation Comments Aspartate Amino Transf (AST/SGOT) (test code = Aspartate Amino Transf (AST/SGOT)) 9 5-34 [facility] HospitalAlanine Aminotransferase (ALT/SGPT) 2019-05-16 16:07:00* Test Item Value Reference Range Interpretation Comments Alanine Aminotransferase (ALT/SGPT) (test code = 1742-6) 7 0-55 [facility] Gskqsgy4196-18-31 16:07:00* Test Item Value Reference Range Interpretation Comments Total Protein (test code = 2885-2) 6.6 6.5-8.1 [facility] HospitalAlbumin2020-02-14 16:07:00* Test Item Value Reference Range Interpretation Comments Albumin (test code = 1751-7) 3.2 3.5-5.0 [facility] HospitalGlobulin2020-02-14 16:07:00* Test Item Value Reference Range Interpretation Comments Globulin (test code = 55967-6) 3.4 2.3-3.5 [facility] HospitalAlbumin/Globulin Frsfk6686-43-38 16:07:00 * Test Item Value Reference Range Interpretation Comments Albumin/Globulin Ratio (test code = 1759-0) 0.9 0.8-2.0 [facility] HospitalAlkaline Whyktnipjhc5248-59-27 16:07:00* Test Item Value Reference Range Interpretation Comments Alkaline Phosphatase (test code = 6768-6) 73 40-150 [facility] HospitalHepatitis B Surface Antibody, Quant 2019-05-15 21:48:00* Test Item Value Reference Range Interpretation Comments Hepatitis B Surface Antibody, Quant (test code = 5194-6) 82.9 Immunity>9.9 Status of Immunity Anti-HBs Level Inconsistent with Immunity 0.0 - 9.9Consistent with Immunity >9.9[facility] Surface Ztkordr7992-21-03 21:48:00* Test Item Value Reference Range Interpretation Comments Hepatitis B Surface Antigen (test code = 5196-1) Negative Negat terrell Performed at: [facility] - [facility] [address] [id number] Director: Yadiel Yancey MD, Phone: [phone] Hermann Katy HospitalFOOT COMPLETE HHVDZKJWY6151-20-68 19:50:00 [facility] [address] [place] [address] Patient Name: ARY ALEJO MR #: [id number] : 1935 Age/Sex: 83/M Req #: [id number] Adm Physician: WELLINGTON PACE MD Ordered by: WAQAR ROLLE DPMajor Report #: [id number] [facility] Room/Bed: [facility] Procedure: [id number] DX /FOOT COMPLETE BILATERAL Exam Date: 05/14/19 [...] MD 53 Transcribed By: SALVADOR on 05/14/191953 AIRFIELD MANAGER Y TO: WAQAR ROLLE DPMajor C-Reactive Curzerh4241-49-84 17:22:00* Test Item Value Reference Range Interpretation Comments C-Reactive Protein (test code = 1988-5) 120 0-10 Performed at: [facility] [id number] Director: Yadiel Yancey MD, Phone: [phone] Hermann Katy HospitalErythrocyte Sedimentation [id number] 18:50:00* Test Item Value Reference Range Interpretation Comments Erythrocyte Sedimentation Rate (test code = 4537-7) 81 0- 13 [facility] HospitalBlood [id number] 14:48:00* Test Item Value Reference Range Interpretation Comments Blood Culture (test code = 46016199) NO GROWTH AFTER 5 DAYS, FINAL REPORT [facility] HospitalLactic Acid [id number] 15:00:00* Test Item Value Reference Range Interpretation Comments Lactic Acid Level (test code = Lactic Acid Level) 0.7 0.5- 2.0 [facility] HospitalFOOT RIGHT [id number] 14:48:00 [facility] [address] [address] Patient Name: ARY ALEJO MR #: [id number] : 1935 Age/Sex: 83/M Req #: [id number] Adm Physician: WELLINGTON PACE MD Ordered by: WILFRIDO KRUSE DIRECTOR OF DIGITAL PLATFORMS Report #: [id number] Location: [facility] Room/Bed: [place] [address] Procedure: [id number] DX /FOOT RIGHT COMPLETE Exam Date: Exam [...] PM Dictat ed By: WILFRIDO GEE MD 1230 Transcribed By: SALVADOR on 04/17/19 3944 COPY TO: WILFRIDO KRUSE DIRECTOR OF DIGITAL PLATFORMS ANG, AV-SHUNT, CATH INTRO WITH [id number] 05:41:00Reason for exam:->AV Fistulogram - fistula malfunctionFINAL REPORT Right upper extremity AV fistulogram, 03/07/2019. History: AV fistula malfunction. Modality: Fluoroscopy Sedation: None Anesthesia: Two percent Lidocaine without epinephrine. Approach: Left upper extremity AV fistula Estimated blood loss: < 5 cc. Specimen: None. roll or tape edge machine operator: Tim Ferro MD. Cotton Chopper: Mor. Fluoroscopy Time: 0.2 min.Reference Air Kerma [...] MDReport Verified Date/Time: 03/20/2019 05:41:14 Reading Location: [place] [address] Angio Body Reading Room -GLUCOSE [id number] 12:34:00* Test Item Value Reference Range Interpretation Comments POC-GLUCOSE METER (BEAKER) (test code = 1538) 150 mg/dL 70-110 H : TESTED AT [facility] [address] [facility], [address]: Manager Fine Dining/Director Of Student Life ID = [id number] for THIAGO MAXWELL BASIC METABOLIC [id number] 08:22:00* Test Item Value Reference Range Interpretation [...] DIALYSIS PATIENTS. CBC W/PLT COUNT & AUTO [id number] 05:18:00* Test Item Value Reference Range Interpretation [...] code = 2801) 1 % 0-1 POCT-GLUCOSE [id number] 21:38:00* Test Item Value Reference Range Interpretation Comments POC-GLUCOSE METER (BEAKER) (test code = 1538) 192 mg/dL 70-110 H : TESTED AT [address], [address]: Manager Fine Dining/Director Of Student Life ID = [id number] for SOLOMON BENITEZ POCT-GLUCOSE [id number] 17:16:00* Test Item Value Reference Range Interpretation Comments POC-GLUCOSE METER (BEAKER) (test code = 1538) 148 mg/dL 70-110 H : TESTED AT [address], [address]: Manager Fine Dining/Director Of Student Life ID = [id number] for TRICIA TERRI PROTHROMBIN TIME/[id number] 14:22:00* Test Item Value Reference Range Interpretation [...] for patie nts wiht mechanical heart valves.POCT-GLUCOSE [id number] 11:57:00* Test Item Value Reference Range Interpretation Comments POC-GLUCOSE METER (BEAKER) (test code = 1538) 153 mg/dL 70-110 H : TESTED AT [address], [address]: Manager Fine Dining/Director Of Student Life ID = [id number] for SUZIE VICENTE [id number] 10:07:00* Test Item Value Reference Range Interpretation Comments GLUBED (test code = GLUBED) 161 mg/dL 74-106 H Performed by certified air reduction equipment operator at [facility] [id number] 10:07:00* Test Item Value Reference Range Interpretation Comments GLUBED (test code = GLUBED) 160 mg/dL 74-106 H Performed by certified air reduction equipment operator at [facility] POCT-GLUCOSE [id number] 08:26:00* Test Item Value Reference Range Interpretation Comments POC-GLUCOSE METER (BEAKER) (test code = 1538) 256 mg/dL 70-110 H : TESTED AT [address], [address]: Manager Fine Dining/Director Of Student Life ID = [id number] for SUZIE VICENTE CBC W/PLT COUNT & AUTO [id number] 04:24:00* Test Item Value Reference Range Interpretation [...] code = 2801) 1 % 0-1 POCT-GLUCOSE [id number] 21:12:00* Test Item Value Reference Range Interpretation Comments POC-GLUCOSE METER (BEAKER) (test code = 1538) 199 mg/dL 70-110 H : TESTED AT [address], [address]: Manager Fine Dining/Director Of Student Life ID = [id number] for BOBBI SMITH POCT-GLUCOSE [id number] 17:20:00* Test Item Value Reference Range Interpretation Comments POC-GLUCOSE METER (BEAKER) (test code = 1538) 183 mg/dL 70-110 H : TESTED AT [address], [address]: Manager Fine Dining/Director Of Student Life ID = [id number] for SUZIE VICENTE SPUTUM CULTURE + GRAM [id number] 11:05:00* Test Item Value Reference Range Interpretation [...] GRAM STAIN RESULT (BEAKER) (test code = 122099) 0-5 epithelial cell s GRAM STAIN RESULT (BEAKER) (test code = 821867) 2+ gram posi tive cocci in pairs 4+ Normal respiratory erick presentPOCT-GLUCOSE [id number] 07:45:00* Test Item Value Reference Range Interpretation Comments POC-GLUCOSE METER (BEAKER) (test code = 1538) 205 mg/dL 70-110 H : TESTED AT [address], [address]: Manager Fine Dining/Director Of Student Life ID = [id number] for SUZIE VICENTE CBC W/PLT COUNT & AUTO [id number] 04:59:00* Test Item Value Reference Range Interpretation [...] code = 2801) 1 % 0-1 POCT-GLUCOSE [id number] 21:32:00* Test Item Value Reference Range Interpretation Comments POC-GLUCOSE METER (BEAKER) (test code = 1538) 229 mg/dL 70-110 H : TESTED AT [address], [address]: Manager Fine Dining/Director Of Student Life ID = [id number] for BOBBI SMITH POCT-GLUCOSE [id number] 17:38:00* Test Item Value Reference Range Interpretation Comments POC-GLUCOSE METER (BEAKER) (test code = 1538) 252 mg/dL 70-110 H : TESTED AT [place] [address] [facility], [address]: Manager Fine Dining/Director Of Student Life ID = [id number] for ISAURO DAHL POCT-GLUCOSE [id number] 11:39:00* Test Item Value Reference Range Interpretation Comments POC-GLUCOSE METER (BEAKER) (test code = 1538) 322 mg/dL 70-110 H : Notified RN/MD: TESTED AT [place] [id number] [facility], [address]: Manager Fine Dining/Director Of Student Life ID = [id number] for Brown Navarro RAD, CHEST, 2 [id number] 09:36:00Reason for exam:->coughShould this be performed at the bedside?->YesFINAL REPORT CHEST, AP AND LATERAL. HISTORY: Cough. COMPARISON: 03/15/2019. Impression: Right IJ tunneled dialysis catheter identified in stable position. Electronic stimulator device with leads extending cephalad out of the eywpt-nb-glnu again noted. The trachea is midline. There are bibasilar opacity suggestive of atelectasis. There is no evidence for large focal consolidation, pneumothorax, or significant pleural effusion. The cardiomediastinal silhouette is stable in appearance. No acute osseous abnormality is identified. Signed: Mitchel Gar Verified Date/Time: 03/16/2019 09:36:48 Reading Location: [address] Body Reading Room -GLUCOSE [id number] 08:05:00* Test Item Value Reference Range Interpretation Comments POC-GLUCOSE METER (BEAKER) (test code = 1538) 191 mg/dL 70-110 H : TESTED AT [place] [id number] [facility], [address]: Manager Fine Dining/Director Of Student Life ID = [id number] for ISAURO DAHL BASIC METABOLIC [id number] 05:49:00* Test Item Value Reference Range Interpretation [...] IS NOT APPLICABLE FOR DIALYSIS PATIENTS. CALCIUM, [id number] 05:43:00* Test Item Value Reference Range Interpretation Comments CALCIUM IONIZED (BEAKER) (test code = 698) 1.05 mmol/L 1.12-1.27 L PH, BLOOD (BEAKER) (test code = 1810) 7.44 [id number] 05:43:00* Test Item Value Reference Range Interpretation Comments PHOSPHORUS (BEAKER) (test code = 604) 2.6 mg/dL 2.3-4.7 [id number] 05:43:00* Test Item Value Reference Range Interpretation Comments MAGNESIUM (BEAKER) (test code = 627) 1.8 mg/dL 1.6-2.6 PROTHROMBIN TIME/[id number] 05:37:00* Test Item Value Reference Range Interpretation [...] mechanical heart valves.CBC W/PLT COUNT & AUTO [id number] 05:33:00* Test Item Value Reference Range Interpretation [...] % 0-1 RAD, CHEST, 1 VIEW, NON [id number] 05:33:00Reason for exam:->coughShould this be performed at [...] Desouza MDReport Verified Date/Time: 03/16/2019 05:33:32 -GLUCOSE [id number] 21:26:00* Test Item Value Reference Range Interpretation Comments POC-GLUCOSE METER (BEAKER) (test code = 1538) 101 mg/dL 70-110 : TESTED AT [address], [address]: Manager Fine Dining/Director Of Student Life ID = [id number] for BRIELLE AGUILAR POCT-GLUCOSE [id number] 20:25:00* Test Item Value Reference Range Interpretation Comments POC-GLUCOSE METER (BEAKER) (test code = 1538) 58 mg/dL 70-110 L : TESTED AT [address], [address]: Manager Fine Dining/Director Of Student Life ID = [id number] for HANSKOLTONRODRIGUEZ POCT-GLUCOSE [id number] 20:25:00* Test Item Value Reference Range Interpretation Comments POC-GLUCOSE METER (BEAKER) (test code = 1538) 46 mg/dL 70-110 L : TESTED AT [address], [address]: Manager Fine Dining/Director Of Student Life ID = [id number] for TERRI CLARKE POCT-GLUCOSE [id number] 20:24:00* Test Item Value Reference Range Interpretation Comments POC-GLUCOSE METER (BEAKER) (test code = 1538) 33 mg/dL 70-110 LL : Will Repeat Test: Notified RN/MD: TESTED AT [address], [address]: Manager Fine Dining/Director Of Student Life ID = [id number] for TERRI CLARKE POCT-GLUCOSE [id number] 20:24:00* Test Item Value Reference Range Interpretation Comments POC-GLUCOSE METER (BEAKER) (test code = 1538) 56 mg/dL 70-110 L : TESTED AT [address], [address]: Manager Fine Dining/Director Of Student Life ID = [id number] for ESTER CASTILLO POCT-GLUCOSE [id number] 17:40:00* Test Item Value Reference Range Interpretation Comments POC-GLUCOSE METER (BEAKER) (test code = 1538) 37 mg/dL 70-110 LL : Will Repeat Test: Notified RN/MD: TESTED AT [address], [address]: Manager Fine Dining/Director Of Student Life ID = [id number] for TERRI CLARKE POCT-GLUCOSE [id number] 17:27:00* Test Item Value Reference Range Interpretation Comments POC-GLUCOSE METER (BEAKER) (test code = 1538) 129 mg/dL 70-110 H : TESTED AT [address], [address]: Manager Fine Dining/Director Of Student Life ID = [id number] for TERRI CLARKE POCT-GLUCOSE [id number] 17:22:00* Test Item Value Reference Range Interpretation Comments POC-GLUCOSE METER (BEAKER) (test code = 1538) 35 mg/dL 70-110 LL : Will Repeat Test: Notified RN/MD: TESTED AT [address], [address]: Manager Fine Dining/Director Of Student Life ID = [id number] for TERRI CLARKE HEMOGLOBIN [id number] 08:10:00* Test Item Value Reference Range Interpretation Comments HEMOGLOBIN A1C (BEAKER) (test code = 368) 7.8 % 4.3-6.1 H POCT-GLUCOSE [id number] 08:08:00* Test Item Value Reference Range Interpretation Comments POC-GLUCOSE METER (BEAKER) (test code = 1538) 233 mg/dL 70-110 H : TESTED AT [address], [address]: Manager Fine Dining/Director Of Student Life ID = [id number] for CLARKE, TERRI BASIC METABOLIC [id number] 06:10:00* Test Item Value Reference Range Interpretation [...] APPLICABLE FOR DIALYSIS PATIENTS. HEPATITIS B SURFACE [id number] 06:09:00* Test Item Value Reference Range Interpretation Comments HEPATITIS B SURFACE ANTIGEN (2) (BEAKER) (test code = 2585) Nonreactive Nonreactive [id number] 06:08:00* Test Item Value Reference Range Interpretation Comments PHOSPHORUS (BEAKER) (test code = 604) 2.9 mg/dL 2.3-4.7 [id number] 06:08:00* Test Item Value Reference Range Interpretation Comments MAGNESIUM (BEAKER) (test code = 627) 1.8 mg/dL 1.6-2.6 PROTHROMBIN TIME/[id number] 05:43:00* Test Item Value Reference Range Interpretation [...] mechanical heart valves.CBC W/PLT COUNT & AUTO [id number] 05:40:00* Test Item Value Reference Range Interpretation [...] code = 2801) 1 % 0-1 CALCIUM, [id number] 05:35:00* Test Item Value Reference Range Interpretation Comments CALCIUM IONIZED (BEAKER) (test code = 698) 1.08 mmol/L 1.12-1.27 L PH, BLOOD (BEAKER) (test code = 1810) 7.39 POCT-GLUCOSE [id number] 00:09:00* Test Item Value Reference Range Interpretation Comments POC-GLUCOSE METER (BEAKER) (test code = 1538) 145 mg/dL 70-110 H : TESTED AT [address], [address]: Manager Fine Dining/Director Of Student Life ID = [id number] for BRIELLE AGUILAR POCT-GLUCOSE [id number] 21:10:00* Test Item Value Reference Range Interpretation Comments POC-GLUCOSE METER (BEAKER) (test code = 1538) 74 mg/dL 70-110 : TESTED AT [address], [address]: Manager Fine Dining/Director Of Student Life ID = [id number] for TRIANA, TERRI POCT-GLUCOSE [id number] 20:07:00* Test Item Value Reference Range Interpretation Comments POC-GLUCOSE METER (BEAKER) (test code = 1538) 77 mg/dL 70-110 : TESTED AT [address], [address]: Manager Fine Dining/Director Of Student Life ID = [id number] for TRIANA, TERRI POCT-GLUCOSE [id number] 17:45:00* Test Item Value Reference Range Interpretation Comments POC-GLUCOSE METER (BEAKER) (test code = 1538) 92 mg/dL 70-110 : TESTED AT [address], [address]: Manager Fine Dining/Director Of Student Life ID = [id number] for JASON TOURE HEPATITIS B SURFACE [id number] 14:10:00* Test Item Value Reference Range Interpretation Comments HEPATITIS B SURFACE ANTIBODY (BEAKER) (test code = 647) 67.5 mIU/mL <8.0 H HEPATITIS B CORE ANTIBODY, [id number] 14:10:00* Test Item Value Reference Range Interpretation Comments HEPATITIS B CORE TOTAL ANTIBODY (BEAKER) (test code = 497) N onreactive Nonreactive POCT-GLUCOSE [id number] 12:32:00* Test Item Value Reference Range Interpretation Comments POC-GLUCOSE METER (BEAKER) (test code = 1538) 228 mg/dL 70-110 H : TESTED AT [place] [address] [facility], [address]: Manager Fine Dining/Director Of Student Life ID = [id number] for JASON TOURE CALCIUM, [id number] 08:05:00* Test Item Value Reference Range Interpretation Comments CALCIUM IONIZED (BEAKER) (test code = 698) 1.06 mmol/L 1.12-1.27 L PH, BLOOD (BEAKER) (test code = 1810) 7.45 POCT-GLUCOSE [id number] 07:46:00* Test Item Value Reference Range Interpretation Comments POC-GLUCOSE METER (BEAKER) (test code = 1538) 252 mg/dL 70-110 H : TESTED AT [place] [address] [facility], [address]: Manager Fine Dining/Director Of Student Life ID = [id number] for JASON TOURE [id number] 06:19:00* Test Item Value Reference Range Interpretation Comments PHOSPHORUS (BEAKER) (test code = 604) 3.6 mg/dL 2.3-4.7 [id number] 06:19:00* Test Item Value Reference Range Interpretation Comments MAGNESIUM (BEAKER) (test code = 627) 1.9 mg/dL 1.6-2.6 BASIC METABOLIC [id number] 06:19:00* Test Item Value Reference Range Interpretation [...] IS NOT APPLICABLE FOR DIALYSIS PATIENTS. PROTHROMBIN TIME/[id number] 05:50:00* Test Item Value Reference Range Interpretation [...] mechanical heart valves.CBC W/PLT COUNT & AUTO [id number] 05:47:00* Test Item Value Reference Range Interpretation [...] 2801) 1 % 0-1 HEPATITIS B SURFACE [id number] 01:36:00* Test Item Value Reference Range Interpretation Comments HEPATITIS B SURFACE ANTIGEN (2) (BEAKER) (test code = 2585) Nonreactive Nonreactive COMPREHENSIVE METABOLIC [id number] 01:13:00* Test Item Value Reference Range Interpretation [...] GFR IS NOT APPLICABLE FOR DIALYSIS PATIENTS. [id number] 01:05:00* Test Item Value Reference Range Interpretation Comments PHOSPHORUS (BEAKER) (test code = 604) 3.4 mg/dL 2.3-4.7 [id number] 01:05:00* Test Item Value Reference Range Interpretation Comments MAGNESIUM (BEAKER) (test code = 627) 1.8 mg/dL 1.6-2.6 PROTHROMBIN TIME/[id number] 00:38:00* Test Item Value Reference Range Interpretation [...] mechanical heart valves.CBC W/PLT COUNT & AUTO [id number] 00:30:00* Test Item Value Reference Range Interpretation [...] code = 2801) 1 % 0-1 POCT-GLUCOSE [id number] 21:42:00* Test Item Value Reference Range Interpretation Comments POC-GLUCOSE METER (BEAKER) (test code = 1538) 280 mg/dL 70-110 H : TESTED AT [facility] [address] [facility], [address]: Manager Fine Dining/Director Of Student Life ID = [id number] for Terri Magaña CHEST SINGLE (PORTABLE)2019-03-13 14:48:00 [facility] [address] [address] Patient Name: ARY ALEJO MR #: [id number] : 1935 Age/Sex: 83/M Req #: [id number] Adm Physician: Ordered by: WILFRIDO ADDISON DO Report #: [id number] Location: ER Room/Bed: Procedure: [id number] DX/CH EST SINGLE (PORTABLE) Exam Date: 03/13/19 Exam [...] COPY TO: WILFRIDO ADDISON DO B-Type Natriuretic [id number] 13:50:00* Test Item Value Reference Range Interpretation Comments B-Type Natriuretic Peptide (test code = 77749-3) 21.7 0[facility]* Test Item Value Reference Range Interpretation Comments GLUBED (test code = GLUBED) 165 mg/dL 74-106 H Performed by certified air reduction equipment operator at [facility] PROTHROMBIN [id number] 08:16:00* Test Item Value Reference Range Interpretation [...] (2.5-3.5) IS PATIENT ON ANTICOAGULANTS? YLIST ANTICOAGULANTS [id number] 08:15:00* Test Item Value Reference Range Interpretation Comments GLUBED (test code = GLUBED) 220 mg/dL 74-106 H Performed by certified air reduction equipment operator at [facility] [id number] 19:55:00* Test Item Value Reference Range Interpretation Comments GLUBED (test code = GLUBED) 170 mg/dL 74-106 H Performed by certified air reduction equipment operator at [facility] [id number] 12:40:00* Test Item Value Reference Range Interpretation Comments GLUBED (test code = GLUBED) 223 mg/dL 74-106 H Performed by certified air reduction equipment operator at [facility] CBC W/AUTO [id number] 11:23:00* Test Item Value Reference Range Interpretation [...] = MDIFF) NO, ONLY SCAN NEEDED DIFFERENTIAL [id number] 11:23:00* Test Item Value Reference Range Interpretation Comments STAIN ACCEPTABILITY (test code = STN ACCEPTABLE) STAIN ACCEPTABLE ANISOCYTOSIS (test code = ANISO) 1+ PLATELET ESTIMATE (test code = PLTEST) ADEQUATE PLATELET MORPHOLOGY (test code = PLTMORPH) NORMAL CBC W/AUTO [id number] 10:55:00* Test Item Value Reference Range Interpretation [...] = MDIFF) NO, ONLY SCAN NEEDED DIFFERENTIAL [id number] 10:55:00* Test Item Value Reference Range Interpretation Comments STAIN ACCEPTABILITY (test code = STN ACCEPTABLE) CABOT RINGS (test code = CAB) MORPHOLOGY COMMENT (test code = MOC) PLATELET ESTIMATE (test code = PLTEST) PLATELET MORPHOLOGY (test code = PLTMORPH) CBC W/AUTO [id number] 10:55:00* Test Item Value Reference Range Interpretation [...] = MDIFF) NO, ONLY SCAN NEEDED DIFFERENTIAL [id number] 10:55:00* Test Item Value Reference Range Interpretation Comments STAIN ACCEPTABILITY (test code = STN ACCEPTABLE) CABOT RINGS (test code = CAB) MORPHOLOGY COMMENT (test code = MOC) PLATELET ESTIMATE (test code = PLTEST) PLATELET MORPHOLOGY (test code = PLTMORPH) CBC W/AUTO [id number] 10:55:00* Test Item Value Reference Range Interpretation [...] = MDIFF) NO, ONLY SCAN NEEDED DIFFERENTIAL [id number] 10:55:00* Test Item Value Reference Range Interpretation Comments STAIN ACCEPTABILITY (test code = STN ACCEPTABLE) MORPHOLOGY COMMENT (test code = MOC) PLATELET ESTIMATE (test code = PLTEST) PLATELET MORPHOLOGY (test code = PLTMORPH) CBC W/AUTO [id number] 10:55:00* Test Item Value Reference Range Interpretation [...] = MDIFF) NO, ONLY SCAN NEEDED DIFFERENTIAL [id number] 10:55:00* Test Item Value Reference Range Interpretation Comments STAIN ACCEPTABILITY (test code = STN ACCEPTABLE) CABOT RINGS (test code = CAB) MORPHOLOGY COMMENT (test code = MOC) PLATELET ESTIMATE (test code = PLTEST) PLATELET MORPHOLOGY (test code = PLTMORPH) BASIC METABOLIC [id number] 09:46:00* Test Item Value Reference Range Interpretation [...] CA) 8.7 mg/dL 8.5-10.1 N BASIC METABOLIC [id number] 09:41:00* Test Item Value Reference Range Interpretation [...] (test code = CA) mg/dL 8.5-10.1 PROTHROMBIN [id number] 08:02:00* Test Item Value Reference Range Interpretation [...] (2.5-3.5) IS PATIENT ON ANTICOAGULANTS? YLIST ANTICOAGULANTS [id number] 07:53:00* Test Item Value Reference Range Interpretation Comments GLUBED (test code = GLUBED) 217 mg/dL 74-106 H Performed by certified air reduction equipment operator at [facility] [id number] 20:51:00* Test Item Value Reference Range Interpretation Comments GLUBED (test code = GLUBED) 223 mg/dL 74-106 H Performed by certified air reduction equipment operator at [facility] [id number] 16:36:00* Test Item Value Reference Range Interpretation Comments GLUBED (test code = GLUBED) 162 mg/dL 74-106 H Performed by certified air reduction equipment operator at [facility] [id number] 16:10:00* Test Item Value Reference Range Interpretation Comments GLUBED (test code = GLUBED) 23 mg/dL 74-106 LL Test performed as P.O.C. by nursing staff.Performed by certified air reduction [facility]~ [id number] 16:10:00* Test Item Value Reference Range Interpretation Comments GLUBED (test code = GLUBED) 25 mg/dL 74-106 LL Test performed as P.O.C. by nursing staff.Performed by certified air reduction equipment [facility]~ [id number] 11:15:00* Test Item Value Reference Range Interpretation Comments GLUBED (test code = GLUBED) 165 mg/dL 74-106 H Performed by certified air reduction equipment operator at [facility] [id number] 07:51:00* Test Item Value Reference Range Interpretation Comments GLUBED (test code = GLUBED) 182 mg/dL 74-106 H Performed by certified air reduction equipment operator at [facility] PROTHROMBIN [id number] 06:51:00* Test Item Value Reference Range Interpretation [...] (2.5-3.5) IS PATIENT ON ANTICOAGULANTS? YLIST ANTICOAGULANTS [id number] 21:03:00* Test Item Value Reference Range Interpretation Comments GLUBED (test code = GLUBED) 156 mg/dL 74-106 H Performed by certified air reduction equipment operator at [facility] [id number] 18:31:00* Test Item Value Reference Range Interpretation Comments GLUBED (test code = GLUBED) 165 mg/dL 74-106 H Performed by certified air reduction equipment operator at [facility] - CT UP EXTREM W/O CONT [id number] 14:57:00 Name: ARY ALEJO [employer] : 1935 Age/S: 83 / M [address] [facility] Unit #: [id number] Loc: [place] [address] Phys: Leonel Barrera DO Acct: [id number] Dis Date: Status: ADM IN PHONE #: [phone] Exam Date: 02/17/2019 1125 FAX #: [phone] Reason: severe left shoulder pain EXAMS: CPT CODE: [id number] [place] EXTREM W/[place] [address] [place] OF THE LEFT SHOULDER WITH SAGITTAL AND CORONAL RECONSTRUCTIONS DIAGNOSIS: Left shoulder pain COMPARISON: Left shoulder radiographs earlier today at 7:52 AM Scans were performed with thin sections and reconstructions were obtained. CT radiation dose optimization is achieved for this examination by the use of a CT protocol in accordance with ACR practice standards and adherence to dynamo tender's recommendations. FINDINGS: There is no fracture. The [...] provide further evaluation if clinically warranted. Location: [facility] at 1457 Reported and signed by: Richi Godinez MD CC: Leonel Barrerag ; Wellington Pace MD Technologist :Nilson Gilman RT(R),(MR),(CT) CTDI: DLP: Trnscb Date/Time: 01/31 (0915) t.SDR.[email or web address] Orig Print D/T: S: 02/17/2019 (16 04) PAGE 1 Signed Report [id number] 11:22:00* Test Item Value Reference Range Interpretation Comments GLUBED (test code = GLUBED) 145 mg/dL 74-106 H Performed by certified air reduction equipment operator at [facility] - XR SHOULDER 2 + V [id number] 08:14:00 FAX: Leonel Smith [place]: B St: ADM FAX: Wellington Hercules MD [phone] Name: [facility] [employer] : 1935 Age/S: 83/M [address] [facility] Unit #: [id number] Loc: V3090 [place] [address] Phys: Leonel Barrera DO Acct: [id number] Dis Date: Status: ADM IN PHONE #: [phone] Exam Date: 02/17/2019 075 FAX #: [phone] Reason: NEW ONSET SEVERE LEFT SHOULDER PAIN EXAMS: CPT CODE: [id number] XR SHOULDER 2 + [place] [address] HISTORY: NEW ONSET SEVERE LEFT SHOULDER PAIN TECHNIQUE: Internal/external rotation AP and scapular Y-views of the left shoulder. FINDINGS: No acute fracture. Glenohumeral and acromioclavicular joints are not dislocated. Articulating surfaces appear preserved. Regional soft tissues are unremarkable. Visualized thorax is within normal limits. IMPRESSION: Negative radiographic examination of the left shoulder. Location: [facility] at 0814 Reported and signed by: Richi Godinez MD CC: Leonel Barrera Pekiara Tinajero ; Wellington Pace MD Technologist: MONAE MEDINA JR Trnmtrd Date/Time/By: 02/17/2019 (0814) : By: Santino.RR31 Orig Print D/T: S: 02/17/2019 (0817) PAGE 1 Signed R eport BASIC METABOLIC [id number] 07:54:00* Test Item Value Reference Range Interpretation [...] code = CA) 8.6 mg/dL 8.5-10.1 N [id number] 07:54:00* Test Item Value Reference Range Interpretation Comments PHOSPHORUS (test code = PHOS) 3.3 mg/dL 2.5-4.9 N [id number] 07:52:00* Test Item Value Reference Range Interpretation Comments GLUBED (test code = GLUBED) 164 mg/dL 74-106 H Performed by certified air reduction equipment operator at [facility] BASIC METABOLIC [id number] 07:42:00* Test Item Value Reference Range Interpretation [...] CALCIUM (test code = CA) mg/dL 8.5-10.1 [id number] 07:42:00* Test Item Value Reference Range Interpretation Comments PHOSPHORUS (test code = PHOS) mg/dL 2.5-4.9 PROTHROMBIN [id number] 06:51:00* Test Item Value Reference Range Interpretation [...] (2.5-3.5) IS PATIENT ON ANTICOAGULANTS? YLIST ANTICOAGULANTS [id number] 19:48:00* Test Item Value Reference Range Interpretation Comments GLUBED (test code = GLUBED) 234 mg/dL 74-106 H Performed by certified air reduction equipment operator at [facility] [id number] 17:45:00* Test Item Value Reference Range Interpretation Comments GLUBED (test code = GLUBED) 107 mg/dL 74-106 H Performed by certified air reduction equipment operator at [facility] [id number] 15:58:00* Test Item Value Reference Range Interpretation Comments GLUBED (test code = GLUBED) 86 mg/dL 74-106 N Performed by certified air reduction equipment operator at [facility] [id number] 11:16:00* Test Item Value Reference Range Interpretation Comments GLUBED (test code = GLUBED) 246 mg/dL 74-106 H Performed by certified air reduction equipment operator at [facility] [id number] 07:34:00* Test Item Value Reference Range Interpretation Comments GLUBED (test code = GLUBED) 216 mg/dL 74-106 H Performed by certified air reduction equipment operator at [facility] PROTHROMBIN [id number] 06:21:00* Test Item Value Reference Range Interpretation [...] DIFF REQUIRED (test code = MDIFF) NO [id number] 20:23:00* Test Item Value Reference Range Interpretation Comments GLUBED (test code = GLUBED) 240 mg/dL 74-106 H Performed by certified air reduction equipment operator at [facility] HEPATITIS C RNA BY PCR (QUAL)2019-02-15 16:08:00* Test Item Value Reference Range Interpretation Comments HEPATITIS C RNA BY PCR (QUAL) (test code = HCVRNAPCR) Negative Negative Negative: HCV RNA Not DetectedPerformed At: [facility] [id number] Mo MD Ph:[phone] [id number] 16:03:00* Test Item Value Reference Range Interpretation Comments GLUBED (test code = GLUBED) 68 mg/dL 74-106 L Performed by certified air reduction equipment operator at [facility] [id number] 11:22:00* Test Item Value Reference Range Interpretation Comments GLUBED (test code = GLUBED) 253 mg/dL 74-106 H Performed by certified air reduction equipment operator at [facility] [id number] 07:38:00* Test Item Value Reference Range Interpretation Comments GLUBED (test code = GLUBED) 225 mg/dL 74-106 H Performed by certified air reduction equipment operator at [facility] PROTHROMBIN [id number] 06:20:00* Test Item Value Reference Range Interpretation [...] (2.5-3.5) IS PATIENT ON ANTICOAGULANTS? YLIST ANTICOAGULANTS [id number] 19:18:00* Test Item Value Reference Range Interpretation Comments GLUBED (test code = GLUBED) 121 mg/dL 74-106 H Performed by certified air reduction equipment operator at [facility] CBC W/AUTO [id number] 11:51:00* Test Item Value Reference Range Interpretation [...] = MDIFF) NO, ONLY SCAN NEEDED DIFFERENTIAL [id number] 11:51:00* Test Item Value Reference Range Interpretation Comments STAIN ACCEPTABILITY (test code = STN ACCEPTABLE) STAIN ACCEPTABLE HYPOCHROMIA (test code = HYPO) 1+ PLATELET ESTIMATE (test code = PLTEST) ADEQUATE PLATELET MORPHOLOGY (test code = PLTMORPH) NORMAL [id number] 11:41:00* Test Item Value Reference Range Interpretation Comments GLUBED (test code = GLUBED) 228 mg/dL 74-106 H Performed by certified air reduction equipment operator at [facility] BASIC METABOLIC [id number] 11:00:00* Test Item Value Reference Range Interpretation [...] CA) 8.5 mg/dL 8.5-10.1 N BILCBC W/AUTO [id number] 10:59:00* Test Item Value Reference Range Interpretation [...] = MDIFF) NO, ONLY SCAN NEEDED DIFFERENTIAL [id number] 10:59:00* Test Item Value Reference Range Interpretation Comments STAIN ACCEPTABILITY (test code = STN ACCEPTABLE) CABOT RINGS (test code = CAB) MORPHOLOGY COMMENT (test code = MOC) PLATELET ESTIMATE (test code = PLTEST) PLATELET MORPHOLOGY (test code = PLTMORPH) CBC W/AUTO [id number] 10:59:00* Test Item Value Reference Range Interpretation [...] = MDIFF) NO, ONLY SCAN NEEDED DIFFERENTIAL [id number] 10:59:00* Test Item Value Reference Range Interpretation Comments STAIN ACCEPTABILITY (test code = STN ACCEPTABLE) MORPHOLOGY COMMENT (test code = MOC) PLATELET ESTIMATE (test code = PLTEST) PLATELET MORPHOLOGY (test code = PLTMORPH) CBC W/AUTO [id number] 10:58:00* Test Item Value Reference Range Interpretation [...] = MDIFF) NO, ONLY SCAN NEEDED DIFFERENTIAL [id number] 10:58:00* Test Item Value Reference Range Interpretation Comments STAIN ACCEPTABILITY (test code = STN ACCEPTABLE) CABOT RINGS (test code = CAB) MORPHOLOGY COMMENT (test code = MOC) PLATELET ESTIMATE (test code = PLTEST) PLATELET MORPHOLOGY (test code = PLTMORPH) CBC W/AUTO [id number] 10:58:00* Test Item Value Reference Range Interpretation [...] = MDIFF) NO, ONLY SCAN NEEDED DIFFERENTIAL [id number] 10:58:00* Test Item Value Reference Range Interpretation Comments STAIN ACCEPTABILITY (test code = STN ACCEPTABLE) CABOT RINGS (test code = CAB) MORPHOLOGY COMMENT (test code = MOC) PLATELET ESTIMATE (test code = PLTEST) PLATELET MORPHOLOGY (test code = PLTMORPH) [id number] 08:16:00* Test Item Value Reference Range Interpretation Comments GLUBED (test code = GLUBED) 207 mg/dL 74-106 H Performed by certified air reduction equipment operator at [facility] PROTHROMBIN [id number] 06:15:00* Test Item Value Reference Range Interpretation [...] (2.5-3.5) IS PATIENT ON ANTICOAGULANTS? YLIST ANTICOAGULANTS [id number] 20:32:00* Test Item Value Reference Range Interpretation Comments GLUBED (test code = GLUBED) 181 mg/dL 74-106 H Performed by certified air reduction equipment operator at [facility] [id number] 16:24:00* Test Item Value Reference Range Interpretation Comments GLUBED (test code = GLUBED) 151 mg/dL 74-106 H Performed by certified air reduction equipment operator at [facility] [id number] 11:37:00* Test Item Value Reference Range Interpretation Comments GLUBED (test code = GLUBED) 109 mg/dL 74-106 H Performed by certified air reduction equipment operator at [facility] [id number] 07:40:00* Test Item Value Reference Range Interpretation Comments GLUBED (test code = GLUBED) 200 mg/dL 74-106 H Performed by certified air reduction equipment operator at [facility] PROTHROMBIN [id number] 07:18:00* Test Item Value Reference Range Interpretation [...] (2.5-3.5) IS PATIENT ON ANTICOAGULANTS? YLIST ANTICOAGULANTS [id number] 21:28:00* Test Item Value Reference Range Interpretation Comments GLUBED (test code = GLUBED) 139 mg/dL 74-106 H Performed by certified air reduction equipment operator at [facility] [id number] 16:43:00* Test Item Value Reference Range Interpretation Comments GLUBED (test code = GLUBED) 115 mg/dL 74-106 H Performed by certified air reduction equipment operator at [facility] CBC W/AUTO [id number] 13:34:00* Test Item Value Reference Range Interpretation [...] = MDIFF) NO, ONLY SCAN NEEDED DIFFERENTIAL [id number] 13:34:00* Test Item Value Reference Range Interpretation Comments STAIN ACCEPTABILITY (test code = STN ACCEPTABLE) STAIN ACCEPTABLE POLYCHROMASIA (test code = POLC) 1+ BASOPHILIC STIPPLING (test code = STP) 1+ ANISOCYTOSIS (test code = ANISO) 1+ ELLIPTOCYTES (test code = ELL) 1+ PLATELET ESTIMATE (test code = PLTEST) ADEQUATE PLATELET MORPHOLOGY (test code = PLTMORPH) NORMAL BASIC METABOLIC [id number] 13:28:00* Test Item Value Reference Range Interpretation [...] CA) 8.7 mg/dL 8.5-10.1 N CBC W/AUTO [id number] 12:57:00* Test Item Value Reference Range Interpretation [...] = MDIFF) NO, ONLY SCAN NEEDED DIFFERENTIAL [id number] 12:57:00* Test Item Value Reference Range Interpretation Comments STAIN ACCEPTABILITY (test code = STN ACCEPTABLE) CABOT RINGS (test code = CAB) MORPHOLOGY COMMENT (test code = MOC) PLATELET ESTIMATE (test code = PLTEST) PLATELET MORPHOLOGY (test code = PLTMORPH) CBC W/AUTO [id number] 12:57:00* Test Item Value Reference Range Interpretation [...] = MDIFF) NO, ONLY SCAN NEEDED DIFFERENTIAL [id number] 12:57:00* Test Item Value Reference Range Interpretation Comments STAIN ACCEPTABILITY (test code = STN ACCEPTABLE) CABOT RINGS (test code = CAB) MORPHOLOGY COMMENT (test code = MOC) PLATELET ESTIMATE (test code = PLTEST) PLATELET MORPHOLOGY (test code = PLTMORPH) CBC W/AUTO [id number] 12:57:00* Test Item Value Reference Range Interpretation [...] = MDIFF) NO, ONLY SCAN NEEDED DIFFERENTIAL [id number] 12:57:00* Test Item Value Reference Range Interpretation Comments STAIN ACCEPTABILITY (test code = STN ACCEPTABLE) MORPHOLOGY COMMENT (test code = MOC) PLATELET ESTIMATE (test code = PLTEST) PLATELET MORPHOLOGY (test code = PLTMORPH) CBC W/AUTO [id number] 12:57:00* Test Item Value Reference Range Interpretation [...] = MDIFF) NO, ONLY SCAN NEEDED DIFFERENTIAL [id number] 12:57:00* Test Item Value Reference Range Interpretation Comments STAIN ACCEPTABILITY (test code = STN ACCEPTABLE) CABOT RINGS (test code = CAB) MORPHOLOGY COMMENT (test code = MOC) PLATELET ESTIMATE (test code = PLTEST) PLATELET MORPHOLOGY (test code = PLTMORPH) [id number] 11:22:00* Test Item Value Reference Range Interpretation Comments GLUBED (test code = GLUBED) 259 mg/dL 74-106 H Performed by certified air reduction equipment operator at [facility] [id number] 07:56:00* Test Item Value Reference Range Interpretation Comments GLUBED (test code = GLUBED) 213 mg/dL 74-106 H Performed by certified air reduction equipment operator at [facility] PROTHROMBIN [id number] 07:05:00* Test Item Value Reference Range Interpretation [...] (2.5-3.5) IS PATIENT ON ANTICOAGULANTS? YLIST ANTICOAGULANTS [id number] 20:21:00* Test Item Value Reference Range Interpretation Comments GLUBED (test code = GLUBED) 160 mg/dL 74-106 H Performed by certified air reduction equipment operator at [facility] [id number] 16:50:00* Test Item Value Reference Range Interpretation Comments GLUBED (test code = GLUBED) 82 mg/dL 74-106 N Performed by certified air reduction equipment operator at [facility] [id number] 16:50:00* Test Item Value Reference Range Interpretation Comments GLUBED (test code = GLUBED) 66 mg/dL 74-106 L Performed by certified air reduction equipment operator at [facility] COMPREHENSIVE METABOLIC [id number] 14:19:00* Test Item Value Reference Range Interpretation [...] due to change in reagent. CBC W/AUTO [id number] 12:49:00* Test Item Value Reference Range Interpretation [...] = MDIFF) NO, ONLY SCAN NEEDED DIFFERENTIAL [id number] 12:49:00* Test Item Value Reference Range Interpretation Comments STAIN ACCEPTABILITY (test code = STN ACCEPTABLE) STAIN ACCEPTABLE PLATELET ESTIMATE (test code = PLTEST) ADEQUATE PLATELET MORPHOLOGY (test code = PLTMORPH) SIZE VARIABLE CBC W/AUTO [id number] 12:19:00* Test Item Value Reference Range Interpretation [...] = MDIFF) NO, ONLY SCAN NEEDED DIFFERENTIAL [id number] 12:19:00* Test Item Value Reference Range Interpretation Comments STAIN ACCEPTABILITY (test code = STN ACCEPTABLE) CABOT RINGS (test code = CAB) MORPHOLOGY COMMENT (test code = MOC) PLATELET ESTIMATE (test code = PLTEST) PLATELET MORPHOLOGY (test code = PLTMORPH) CBC W/AUTO [id number] 12:19:00* Test Item Value Reference Range Interpretation [...] = MDIFF) NO, ONLY SCAN NEEDED DIFFERENTIAL [id number] 12:19:00* Test Item Value Reference Range Interpretation Comments STAIN ACCEPTABILITY (test code = STN ACCEPTABLE) CABOT RINGS (test code = CAB) MORPHOLOGY COMMENT (test code = MOC) PLATELET ESTIMATE (test code = PLTEST) PLATELET MORPHOLOGY (test code = PLTMORPH) CBC W/AUTO [id number] 12:19:00* Test Item Value Reference Range Interpretation [...] = MDIFF) NO, ONLY SCAN NEEDED DIFFERENTIAL [id number] 12:19:00* Test Item Value Reference Range Interpretation Comments STAIN ACCEPTABILITY (test code = STN ACCEPTABLE) MORPHOLOGY COMMENT (test code = MOC) PLATELET ESTIMATE (test code = PLTEST) PLATELET MORPHOLOGY (test code = PLTMORPH) CBC W/AUTO [id number] 12:19:00* Test Item Value Reference Range Interpretation [...] = MDIFF) NO, ONLY SCAN NEEDED DIFFERENTIAL [id number] 12:19:00* Test Item Value Reference Range Interpretation Comments STAIN ACCEPTABILITY (test code = STN ACCEPTABLE) CABOT RINGS (test code = CAB) MORPHOLOGY COMMENT (test code = MOC) PLATELET ESTIMATE (test code = PLTEST) PLATELET MORPHOLOGY (test code = PLTMORPH) [id number] 11:44:00* Test Item Value Reference Range Interpretation Comments GLUBED (test code = GLUBED) 170 mg/dL 74-106 H Performed by certified air reduction equipment operator at [facility] - XR CHEST 1 [id number] 08:42:00 FAX: Leonel Smith [place]: [address] St: ADM FAX: Wellington Hercules MD [phone] Name: [facility]Y [facility] [employer] : 1935 Age/S: 83/M [address] [facility] Unit #: [id number] Loc: .[address] [place] [address] Phys: Wellington Pace MD Acct: [id number] Dis Date: Status: ADM IN PHONE #: [phone] Exam Date: 02/11/2019 0819 FAX #: [phone] Reason: cough EXAMS: CPT CODE: [id number] XR CHEST 1 V 82948 HISTORY: Cough. COMPARISON: February 06, 2019. Location: [...] JR Trnscrd Date/Time/By: 02/11 (0842) : By: [email or web address].TH4 Orig Print D/T: S: 02/11/2019 (4888) PAGE 1 Signed Report [id number] 07:59:00* Test Item Value Reference Range Interpretation Comments GLUBED (test code = GLUBED) 218 mg/dL 74-106 H Performed by certified air reduction equipment operator at [facility] PROTHROMBIN [id number] 07:32:00* Test Item Value Reference Range Interpretation [...] (2.5-3.5) IS PATIENT ON ANTICOAGULANTS? YLIST ANTICOAGULANTS [id number] 21:03:00* Test Item Value Reference Range Interpretation Comments GLUBED (test code = GLUBED) 183 mg/dL 74-106 H Performed by certified air reduction equipment operator at [facility] [id number] 11:15:00* Test Item Value Reference Range Interpretation Comments GLUBED (test code = GLUBED) 194 mg/dL 74-106 H Performed by certified air reduction equipment operator at [facility] BASIC METABOLIC [id number] 08:42:00* Test Item Value Reference Range Interpretation [...] CA) 8.6 mg/dL 8.5-10.1 N CBC W/AUTO [id number] 08:33:00* Test Item Value Reference Range Interpretation [...] NRBC#) 0.00 K/mm3 0.0-0.1 N BASIC METABOLIC [id number] 08:29:00* Test Item Value Reference Range Interpretation [...] code = CA) 8.6 mg/dL 8.5-10.1 N [id number] 07:55:00* Test Item Value Reference Range Interpretation Comments GLUBED (test code = GLUBED) 243 mg/dL 74-106 H Performed by certified air reduction equipment operator at [facility] PROTHROMBIN [id number] 06:51:00* Test Item Value Reference Range Interpretation [...] (2.5-3.5) IS PATIENT ON ANTICOAGULANTS? YLIST ANTICOAGULANTS [id number] 20:12:00* Test Item Value Reference Range Interpretation Comments GLUBED (test code = GLUBED) 170 mg/dL 74-106 H Performed by certified air reduction equipment operator at [facility] [id number] 17:48:00* Test Item Value Reference Range Interpretation Comments GLUBED (test code = GLUBED) 117 mg/dL 74-106 H Performed by certified air reduction equipment operator at [facility] [id number] 16:50:00* Test Item Value Reference Range Interpretation Comments GLUBED (test code = GLUBED) 125 mg/dL 74-106 H Performed by certified air reduction equipment operator at [facility] [id number] 16:27:00* Test Item Value Reference Range Interpretation Comments GLUBED (test code = GLUBED) 123 mg/dL 74-106 H Performed by certified air reduction equipment operator at [facility] [id number] 16:05:00* Test Item Value Reference Range Interpretation Comments GLUBED (test code = GLUBED) 120 mg/dL 74-106 H Performed by certified air reduction equipment operator at [facility] [id number] 16:05:00* Test Item Value Reference Range Interpretation Comments GLUBED (test code = GLUBED) 31 mg/dL 74-106 LL Test performed as P.O.C. by nursing staff.Performed by certified air reduction equipment operator at [facility]2019-11-10 11:09:00* Test Item Value Reference Range Interpretation Comments GLUBED (test code = GLUBED) 243 mg/dL 74-106 H Performed by certified air reduction equipment operator at [facility] PROTHROMBIN [id number] 08:01:00* Test Item Value Reference Range Interpretation [...] (2.5-3.5) IS PATIENT ON ANTICOAGULANTS? YLIST ANTICOAGULANTS [id number] 07:24:00* Test Item Value Reference Range Interpretation Comments GLUBED (test code = GLUBED) 206 mg/dL 74-106 H Performed by certified air reduction equipment operator at [facility] [id number] 20:19:00* Test Item Value Reference Range Interpretation Comments GLUBED (test code = GLUBED) 191 mg/dL 74-106 H Performed by certified air reduction equipment operator at [facility] [id number] 16:34:00* Test Item Value Reference Range Interpretation Comments GLUBED (test code = GLUBED) 142 mg/dL 74-106 H Performed by certified air reduction equipment operator at [facility] [id number] 16:19:00* Test Item Value Reference Range Interpretation Comments GLUBED (test code = GLUBED) 23 mg/dL 74-106 LL Test performed as P.O.C. by nursing staff.[facility] by certified air reduction [facility]ified [facility]~ [id number] 16:19:00* Test Item Value Reference Range Interpretation Comments GLUBED (test code = GLUBED) 23 mg/dL 74-106 LL Test performed as P.O.C. by nursing staff.[facility] by certified air reduction [facility] Notified~ [id number] 11:36:00* Test Item Value Reference Range Interpretation Comments GLUBED (test code = GLUBED) 116 mg/dL 74-106 H Performed by certified air reduction equipment operator at [facility] [id number] 07:50:00* Test Item Value Reference Range Interpretation Comments GLUBED (test code = GLUBED) 254 mg/dL 74-106 H Performed by certified air reduction equipment operator at [facility] PROTHROMBIN [id number] 07:41:00* Test Item Value Reference Range Interpretation [...] (2.5-3.5) IS PATIENT ON ANTICOAGULANTS? YLIST ANTICOAGULANTS [id number] 20:22:00* Test Item Value Reference Range Interpretation Comments GLUBED (test code = GLUBED) 154 mg/dL 74-106 H Performed by certified air reduction equipment operator at [facility] - XR SWLW FUNC W/C [id number] 15:18:00 FAX: Leonel Smith [place]: B St: ADM FAX: Wellington Hercules MD [phone] Name: ARY [facility] [employer] : 1935 Age/S: 83/M [address] Unit #: [id number] Loc: V.3090 [place] [address] [facility]: [id number] Dis Date: Status: ADM IN PHONE #: [phone] Exam Date: 02/07/2019 1235 FAX #: [phone] Reason: SWALLOW EVAL EXAMS: CPT CODE: [id number] XR SWLW FUNC W/C V 22817 CLINICAL HISTORY: SWALLOW EVAL TECHNIQUE: Fluoroscopic swallow [...] speech pathology report for complete discussion. at 0543 Reported and signed by: Richi Godinez MD CC: Leonel Barrera DO; Wellington Pace MD Technologist: RT LIANA(Jade) Trnscrd Date/Time/By: 02/07/2019 (7439) : By: [email or web address] Orig Print D/T : S: 02/07/2019 (7572) PAGE 1 Sig mando Report [id number] 13:22:00* Test Item Value Reference Range Interpretation Comments GLUBED (test code = GLUBED) 79 mg/dL 74-106 N Performed by certified air reduction equipment operator at [facility] [id number] 09:02:00* Test Item Value Reference Range Interpretation Comments GLUBED (test code = GLUBED) 207 mg/dL 74-106 H Performed by certified air reduction equipment operator at [facility] PROTHROMBIN [id number] 07:38:00* Test Item Value Reference Range Interpretation [...] MPV) 10.6 fL 6.7-11.0 N BASIC METABOLIC [id number] 07:15:00* Test Item Value Reference Range Interpretation [...] CA) 8.5 mg/dL 8.5-10.1 N BASIC METABOLIC [id number] 07:09:00* Test Item Value Reference Range Interpretation [...] CALCIUM (test code = CA) mg/dL 8.5-10.1 [id number] 20:03:00* Test Item Value Reference Range Interpretation Comments GLUBED (test code = GLUBED) 270 mg/dL 74-106 H Performed by certified air reduction equipment operator at [facility] - XR CHEST 2 [id number] 18:26:00 FAX: Leonel Smith [place]: B St: ADM FAX: Wellington Hercules MD [phone] Name: ARY ALEJO [employer] : 1935 Age/S: 83/M [address] Unit #: [id number] Loc: V.3090 [place] [address] Phys: BruceVanitaEaston Pekiara Tanvi CHRISTOPHER Acct: [id number] Dis Date: Status: ADM IN PHONE #: [phone] Exam Date: 02/06/20191819 FAX #: [phone] Reason: cough and congestion EXAMS: CPT CODE: [id number] XR CHEST 2 V 14516 REASON FOR EXAM: cough and congestion Exam Order Date: 02/06/2019 12:00 AM Ordering: Leonel Barrera DO Attending:Leonel Barrera DO Location:[facility] PROCEDURE: - XR CHEST 2 V [...] Valente(R) Trnscrd Date/Time/By: 02/06/2019 (1825) : By: Santino.VTL Orig Print D/T: S: 02/06/2019 (1828) PAGE 1 Signed Report [id number] 16:32:00* Test Item Value Reference Range Interpretation Comments GLUBED (test code = GLUBED) 128 mg/dL 74-106 H Performed by certified air reduction equipment operator at [facility] [id number] 11:29:00* Test Item Value Reference Range Interpretation Comments GLUBED (test code = GLUBED) 148 mg/dL 74-106 H Performed by certified air reduction equipment operator at [facility] - CT C-SPINE W/O [id number] 11:00:00 Name: ARY ALEJO [employer] : 1935 Age/S: 83 / M [address] Unit #: [id number] Loc: [place] [address] Phys: Leonel Barrera DO Acct: [id number] Dis Date: Status: ADM IN PHONE #: [phone] Exam Date: 02/06/2019 1018 FAX #: [phone] Reason: arm weakness EXAMS: CPT CODE: [id number] CT C-SPINE W/O CONTRAST 58356 HISTORY: arm weakness TECHNIQUE: Noncontrast 2.5 mm [...] 1 Signed Report (CONTINUED) Name: ARY ALEJO [facility] : 1935 Age/S: 83 / M [address] Unit #: [id number] Loc: [place] [address] Phys: BruceVanitaEaston Mikhail Tinajero DO Acct: [id number] Dis Date: Status: ADM IN PHONE #: [phone] Exam Date: 02/06/2019 1018 FAX #: [phone] Reason: arm weakness EXAMS: CPT CODE: [id number] CT C-SPINE W/O CONTRAST 98198 < Continued> IMPRESSION: No acute intracranial hemorrhage, [...] levels. No acute fracture is seen. Location: [facility] at 1100 Reported and signed by: Richi Godinez MD CC: Leonel Barrera DO; Wellington Pace MD Technologist:RT Kishor(R),CT CTDI: DLP: Trnscb Date/Time: 02/06/2019 (1100) t.SDR.RR31 Orig Print D/T: S: 02/06/2019 (4683) PAGE 2 Signed Report - CT HEAD/BRAIN W/O [id number] 11:00:00 Name: ARY ALEJO [facility] : 1935 Age/S: 83 / M [address] Unit #: [id number] Loc: [place] [address] Phys: BruceLeonel Mikhail Tinajero DO Acct: [id number] Dis Date: Status: ADM IN PHONE #: [phone] Exam Date: 02/06/2019 1018 FAX #: [phone] Reason: arm weakness EXAMS: CPT CODE: [id number] CT HEAD/BRAIN W/O CONT 44064 HISTORY: arm weakness TECHNIQUE: Noncontrast 2.5 mm [...] SVC. PAGE 1 Signed Report (CONTINUED) Name: AYR ALEJO [facility] : 1935 Age/S: 83 / M [address] [facility] Unit #: [id number] Loc: [place] [address] Phys: Leonel Barrera DO Acct: [id number] Dis Date: Status: ADM IN PHONE #: [phone] Exam Date: 02/06/2019 1018 FAX #: [phone] Reason: arm weakness EXAMS: CPT CODE: [id number] CT HEAD/BRAIN W/O CONT 75412 < Continued> IMPRESSION: No acute intracranial hemorrhage, [...] levels. No acute fracture is seen. Location: [facility] at 1100 Reported and signed by: Richi Godinez MD CC: Leonel Barrera DO; Wellington Pace MD Technologist:Loida Juares,RT(R),CT CTDI: DLP: Trnscb Date/Time: 02/06/2019 (1100) t.MAGDYR.RR31 Orig Print D/T: S: 02/06/2019 (9338) PAGE 2 Signed Report [id number] 07:50:00* Test Item Value Reference Range Interpretation Comments GLUBED (test code = GLUBED) 206 mg/dL 74-106 H Performed by certified air reduction equipment operator at [facility] PROTHROMBIN [id number] 06:08:00* Test Item Value Reference Range Interpretation [...] (2.5-3.5) IS PATIENT ON ANTICOAGULANTS? YLIST ANTICOAGULANTS [id number] 20:13:00* Test Item Value Reference Range Interpretation Comments GLUBED (test code = GLUBED) 195 mg/dL 74-106 H Performed by certified air reduction equipment operator at [facility] PROTHROMBIN [id number] 15:48:00* Test Item Value Reference Range Interpretation [...] Atrial fibrillation Mechanical prosthetic heart valves (2.5-3.5) ALTERNATIVE FINANCING SPECIALIST.MARK [id number] V.LAB.KP2 02/05/19 0936IS PATIENT ON ANTICOAGULANTS? YL IST ANTICOAGULANTS COUMADINBASIC METABOLIC [id number] 15:09:00* Test Item Value Reference Range Interpretation [...] V.LAB.[facility] 02/05/19 0936CBC W/AUTO [id number] 14:39:00* Test Item Value Reference Range Interpretation [...] DIALYSIS V.LAB.[facility] 02/05/19 0937DIFFERENTIAL [id number] 14:39:00 * Test Item Value Reference Range Interpretation Comments STAIN ACCEPTABILITY (test code = STN ACCEPTABLE) STAIN ACCEPTABLE HYPOCHROMIA (test code = HYPO) 1+ PLATELET ESTIMATE (test code = PLTEST) ADEQUATE PLATELET MORPHOLOGY (test code = PLTMORPH) SIZE VARIABLE TO WAIT FOR DIALYSIS V.LAB.[facility] 02/05/19 0937CBC W/AUTO [id number] 14:16:00* Test Item Value Reference Range Interpretation [...] ONLY SCAN NEEDED TO WAIT FOR DIALYSIS V.LAB.KP2 02/05/19 0937DIFFERENTIAL [id number] 14:16:00 * Test Item Value Reference Range Interpretation Comments STAIN ACCEPTABILITY (test code = STN ACCEPTABLE) CABOT RINGS (test code = CAB) MORPHOLOGY COMMENT (test code = MOC) PLATELET ESTIMATE (test code = PLTEST) PLATELET MORPHOLOGY (test code = PLTMORPH) TO WAIT FOR DIALYSIS V.LAB.2 02/05/19 0937CBC W/AUTO [id number] 14:16:00* Test Item Value Reference Range Interpretation [...] DIALYSIS V.LAB.[facility] 02/05/19 0937DIFFERENTIAL [id number] 14:16:00 * Test Item Value Reference Range Interpretation Comments STAIN ACCEPTABILITY (test code = STN ACCEPTABLE) MORPHOLOGY COMMENT (test code = MOC) PLATELET ESTIMATE (test code = PLTEST) PLATELET MORPHOLOGY (test code = PLTMORPH) TO WAIT FOR DIALYSIS V.LAB.[facility] 02/05/19 0937CBC W/AUTO [id number] 14:16:00* Test Item Value Reference Range Interpretation [...] DIALYSIS V.LAB.[facility] 02/05/19 0937DIFFERENTIAL [id number] 14:16:00 * Test Item Value Reference Range Interpretation Comments STAIN ACCEPTABILITY (test code = STN ACCEPTABLE) MORPHOLOGY COMMENT (test code = MOC) PLATELET ESTIMATE (test code = PLTEST) PLATELET MORPHOLOGY (test code = PLTMORPH) TO WAIT FOR DIALYSIS V.LAB.[facility] 02/05/19 0937CBC W/AUTO [id number] 14:16:00* Test Item Value Reference Range Interpretation [...] DIALYSIS V.LAB.[facility] 02/05/19 0937DIFFERENTIAL [id number] 14:16:00 * Test Item Value Reference Range Interpretation Comments STAIN ACCEPTABILITY (test code = STN ACCEPTABLE) CABOT RINGS (test code = CAB) MORPHOLOGY COMMENT (test code = MOC) PLATELET ESTIMATE (test code = PLTEST) PLATELET MORPHOLOGY (test code = PLTMORPH) TO WAIT FOR DIALYSIS V.LAB.[facility] 02/05/19 [id number] 11:59:00* Test Item Value Reference Range Interpretation Comments GLUBED (test code = GLUBED) 169 mg/dL 74-106 H Performed by certified air reduction equipment operator at [facility] [id number] 08:10:00* Test Item Value Reference Range Interpretation Comments GLUBED (test code = GLUBED) 240 mg/dL 74-106 H Performed by certified air reduction equipment operator at [facility] [id number] 19:23:00* Test Item Value Reference Range Interpretation Comments GLUBED (test code = GLUBED) 84 mg/dL 74-106 N Performed by certified air reduction equipment operator at [facility] [id number] 17:11:00* Test Item Value Reference Range Interpretation Comments GLUBED (test code = GLUBED) 95 mg/dL 74-106 N Performed by certified air reduction equipment operator at [facility] [id number] 16:28:00* Test Item Value Reference Range Interpretation Comments GLUBED (test code = GLUBED) 58 mg/dL 74-106 L Performed by certified air reduction equipment operator at [facility] - XR C-SPINE 2-3 [id number] 15:44:00 FAX: Leonel Smith Fo [place]: B St: ADM FAX: Wellington Hercules MD [phone] Name: ARY ALEJO [facility] : 1935 Age/S: 83/M [address] Unit #: [id number] Loc: [place] [address] Phys: Leonel Barrera Acct: [id number] Dis Date: Status: ADM IN PHONE #: [phone] Exam Date: 02/04/2019 1521 FAX #: [phone] Reason: pain EXAMS: CPT CODE: [id number] XR C-SPINE 2-3 VIEWS 26417 REASON FOR EXAM: pain EXAM ORDER DATE: 02/04/2019 12:00 AM Ordering MAngel: Leonel Barrera DO Location:[facility] PROCEDURE: - XR C-SPINE 2-3 VIEWS [...] correlation with MRI would be useful. at 2853 Reported and signed by: Tavares Brar M.D. CC: Leonel Barrera DO; Wellington Pace MD Technologist: RT CARSON(R) Trnscrd Date/Time/By: 02/04/2019 (6148) : By: Marcy Orig Print D/T: S: 02/04/2019 (0597) PAGE 1 Signed Report GLUBED 2019-02-04 11:23:00* Test Item Value Reference Range Interpretation Comments GLUBED (test code = GLUBED) 298 mg/dL 74-106 H Performed by certified air reduction equipment operator at [facility] PROTHROMBIN [id number] 08:39:00* Test Item Value Reference Range Interpretation [...] (2.5-3.5) IS PATIENT ON ANTICOAGULANTS? YLIST ANTICOAGULANTS [id number] 08:19:00* Test Item Value Reference Range Interpretation Comments GLUBED (test code = GLUBED) 187 mg/dL 74-106 H Performed by certified air reduction equipment operator at [facility] BASIC METABOLIC [id number] 23:44:00* Test Item Value Reference Range Interpretation [...] = CA) 8.6 mg/dL 8.5-10.1 N 1518RNMURIEL OXW1198 V.LAB.CC1 02/03/19 [id number] 23:25:00* Test Item Value Reference Range Interpretation Comments GLUBED (test code = GLUBED) 65 mg/dL 74-106 L Performed by certified air reduction equipment operator at [facility] CBC W/AUTO [id number] 23:00:00* Test Item Value Reference Range Interpretation [...] DIALYSIS LIMB ALERTS BOTH V.LAB.CC 1103H ANDS [id number] 16:30:00* Test Item Value Reference Range Interpretation Comments GLUBED (test code = GLUBED) 161 mg/dL 74-106 H Performed by certified air reduction equipment operator at [facility] [id number] 11:11:00* Test Item Value Reference Range Interpretation Comments GLUBED (test code = GLUBED) 389 mg/dL 74-106 H Performed by certified air reduction equipment operator at [facility] CBC W/AUTO [id number] 10:03:00* Test Item Value Reference Range Interpretation [...] = MDIFF) NO, ONLY SCAN NEEDED DIFFERENTIAL [id number] 10:03:00* Test Item Value Reference Range Interpretation Comments STAIN ACCEPTABILITY (test code = STN ACCEPTABLE) STAIN ACCEPTABLE HYPOCHROMIA (test code = HYPO) 1+ BASOPHILIC STIPPLING (test code = STP) 1+ PLATELET ESTIMATE (test code = PLTEST) ADEQUATE PLATELET MORPHOLOGY (test code = PLTMORPH) NORMAL FEW CLUMPING SEEN. PROTHROMBIN [id number] 08:58:00* Test Item Value Reference Range Interpretation [...] = MDIFF) NO, ONLY SCAN NEEDED DIFFERENTIAL [id number] 08:12:00* Test Item Value Reference Range Interpretation Comments STAIN ACCEPTABILITY (test code = STN ACCEPTABLE) CABOT RINGS (test code = CAB) MORPHOLOGY COMMENT (test code = MOC) PLATELET ESTIMATE (test code = PLTEST) PLATELET MORPHOLOGY (test code = PLTMORPH) CBC W/AUTO [id number] 08:12:00* Test Item Value Reference Range Interpretation [...] = MDIFF) NO, ONLY SCAN NEEDED DIFFERENTIAL [id number] 08:12:00* Test Item Value Reference Range Interpretation Comments STAIN ACCEPTABILITY (test code = STN ACCEPTABLE) CABOT RINGS (test code = CAB) MORPHOLOGY COMMENT (test code = MOC) PLATELET ESTIMATE (test code = PLTEST) PLATELET MORPHOLOGY (test code = PLTMORPH) CBC W/AUTO [id number] 08:12:00* Test Item Value Reference Range Interpretation [...] = MDIFF) NO, ONLY SCAN NEEDED DIFFERENTIAL [id number] 08:12:00* Test Item Value Reference Range Interpretation Comments STAIN ACCEPTABILITY (test code = STN ACCEPTABLE) MORPHOLOGY COMMENT (test code = MOC) PLATELET ESTIMATE (test code = PLTEST) PLATELET MORPHOLOGY (test code = PLTMORPH) CBC W/AUTO [id number] 08:12:00* Test Item Value Reference Range Interpretation [...] = MDIFF) NO, ONLY SCAN NEEDED DIFFERENTIAL [id number] 08:12:00* Test Item Value Reference Range Interpretation Comments STAIN ACCEPTABILITY (test code = STN ACCEPTABLE) CABOT RINGS (test code = CAB) MORPHOLOGY COMMENT (test code = MOC) PLATELET ESTIMATE (test code = PLTEST) PLATELET MORPHOLOGY (test code = PLTMORPH) [id number] 07:48:00* Test Item Value Reference Range Interpretation Comments GLUBED (test code = GLUBED) 209 mg/dL 74-106 H Performed by certified air reduction equipment operator at [facility] [id number] 21:01:00* Test Item Value Reference Range Interpretation Comments GLUBED (test code = GLUBED) 148 mg/dL 74-106 H Performed by certified air reduction equipment operator at [facility] [id number] 17:53:00* Test Item Value Reference Range Interpretation Comments GLUBED (test code = GLUBED) 133 mg/dL 74-106 H Performed by certified air reduction equipment operator at [facility] [id number] 16:47:00* Test Item Value Reference Range Interpretation Comments GLUBED (test code = GLUBED) 69 mg/dL 74-106 L Performed by certified air reduction equipment operator at [facility] [id number] 11:41:00* Test Item Value Reference Range Interpretation Comments GLUBED (test code = GLUBED) 196 mg/dL 74-106 H Performed by certified air reduction equipment operator at [facility] PROTHROMBIN [id number] 10:31:00* Test Item Value Reference Range Interpretation [...] (2.5-3.5) IS PATIENT ON ANTICOAGULANTS? YLIST ANTICOAGULANTS [id number] 08:28:00* Test Item Value Reference Range Interpretation Comments GLUBED (test code = GLUBED) 280 mg/dL 74-106 H Performed by certified air reduction equipment operator at [facility] [id number] 19:49:00* Test Item Value Reference Range Interpretation Comments GLUBED (test code = GLUBED) 221 mg/dL 74-106 H Performed by certified air reduction equipment operator at [facility] [id number] 17:13:00* Test Item Value Reference Range Interpretation Comments GLUBED (test code = GLUBED) 293 mg/dL 74-106 H Performed by certified air reduction equipment operator at [facility] PROTHROMBIN [id number] 15:43:00* Test Item Value Reference Range Interpretation [...] 1446IS PATIENT ON ANTICOAGULANTS? YLIST ANTICOAGULANTS COUMADIN [id number] 15:19:00* Test Item Value Reference Range Interpretation Comments GLUBED (test code = GLUBED) 333 mg/dL 74-106 H Performed by certified air reduction equipment operator at [facility] [id number] 11:30:00* Test Item Value Reference Range Interpretation Comments GLUBED (test code = GLUBED) 297 mg/dL 74-106 H Performed by certified air reduction equipment operator at [facility] [id number] 08:50:00* Test Item Value Reference Range Interpretation Comments GLUBED (test code = GLUBED) 308 mg/dL 74-106 H Performed by certified air reduction equipment operator at [facility] PROTHROMBIN [id number] 05:42:00* Test Item Value Reference Range Interpretation [...] (2.5-3.5) IS PATIENT ON ANTICOAGULANTS? YLIST ANTICOAGULANTS [id number] 05:40:00* Test Item Value Reference Range Interpretation Comments GLUBED (test code = GLUBED) 283 mg/dL 74-106 H Performed by certified air reduction equipment operator at [facility] [id number] 22:34:00* Test Item Value Reference Range Interpretation Comments GLUBED (test code = GLUBED) 226 mg/dL 74-106 H Performed by certified air reduction equipment operator at [facility] [id number] 18:33:00* Test Item Value Reference Range Interpretation Comments GLUBED (test code = GLUBED) 281 mg/dL 74-106 H Performed by certified air reduction equipment operator at [facility] [id number] 16:41:00* Test Item Value Reference Range Interpretation Comments GLUBED (test code = GLUBED) 36 mg/dL 74-106 LL [facility] reduction [facility]~ [id number] 16:41:00* Test Item Value Reference Range Interpretation Comments GLUBED (test code = GLUBED) 337 mg/dL 74-106 H Performed by certified air reduction equipment operator at [facility] - XR CHEST 1 [id number] 08:04:00 FAX: Trice Ruiz MD [phone] [place]: St: ADM FAX: Wellington Hercules MD [phone] Name: ARY ALEJO [facility] [employer] [facility] [employer] : 1935 Age/S: 83/M [address] [facility] Unit #: [id number] Loc: [address] [place] [address] Phys: Trice Hurtado MD Acct: [id number] Dis Date: Status: ADM IN PHONE #: [phone] Exam Date: 01/31/2019 0755 FAX #: [phone] Reason: Pneumonia EXAMS: CPT CODE: [id number] XR CHEST 1 V 01311 CLINICAL HISTORY: Pneumonia TECHNIQUE: AP chest x-ray COMPARISON: 01/28/19 IMPRESSION: Improved right infrahilar airspace opacification. No pleural effusion. Cardiomegaly. Atherosclerotic vascular calcification of the thoracic aorta. Right permacath. LOCATION: [facility] E lectronically Signed by Willow Robles D.O. on 01/31/2019 at 0804 Reported and signed by: Willow Robles D.O. CC: Trice Hurtado MD; Wellington Pace MD Technologist: RT LIANA(R) Trnscuri Date/Time/By: 01/31/2019 (0804) : By: Santino AwanLDP1 Orig Print D/T: S: 01/31/2019 (5868) PAGE 1 Signed Report COMPREHENSIVE METABOLIC [id number] 06:43:00* Test Item Value Reference Range Interpretation [...] due to change in reagent. COMPREHENSIVE METABOLIC [id number] 06:37:00* Test Item Value Reference Range Interpretation [...] (test code = ALKP) IUnit/L 45-117 PROTHROMBIN [id number] 06:33:00* Test Item Value Reference Range Interpretation [...] DIFF REQUIRED (test code = MDIFF) NO [id number] 05:47:00* Test Item Value Reference Range Interpretation Comments GLUBED (test code = GLUBED) 300 mg/dL 74-106 H Performed by certified air reduction equipment operator at [facility]2019-10-31 22:02:00* Test Item Value Reference Range Interpretation Comments GLUBED (test code = GLUBED) 243 mg/dL 74-106 H Performed by certified air reduction equipment operator at [facility]2019-10-31 21:20:00* Test Item Value Reference Range Interpretation Comments GLUBED (test code = GLUBED) 284 mg/dL 74-106 H Performed by certified air reduction equipment operator at [facility] [id number] 17:13:00* Test Item Value Reference Range Interpretation Comments GLUBED (test code = GLUBED) 101 mg/dL 74-106 N Performed by certified air reduction equipment operator at [facility] [id number] 14:03:00* Test Item Value Reference Range Interpretation Comments GLUBED (test code = GLUBED) 311 mg/dL 74-106 H Performed by certified air reduction equipment operator at [facility] [id number] 07:07:00* Test Item Value Reference Range Interpretation Comments GLUBED (test code = GLUBED) 311 mg/dL 74-106 H [facility] certified [facility]~ [id number] 21:32:00* Test Item Value Reference Range Interpretation Comments GLUBED (test code = GLUBED) 371 mg/dL 74-106 H [facility] certified air reduction equipment [facility]~ [id number] 17:59:00* Test Item Value Reference Range Interpretation Comments GLUBED (test code = GLUBED) 178 mg/dL 74-106 H Performed by certified air reduction equipment operator at [facility] [id number] 05:36:00* Test Item Value Reference Range Interpretation Comments GLUBED (test code = GLUBED) 357 mg/dL 74-106 H Performed by certified air reduction equipment operator at [facility] BASIC METABOLIC [id number] 05:16:00* Test Item Value Reference Range Interpretation [...] code = CA) 9.5 mg/dL 8.5-10.1 N [id number] 05:16:00* Test Item Value Reference Range Interpretation Comments MAGNESIUM (test code = MAG) 2.7 mg/dL 1.8-2.4 H BASIC METABOLIC [id number] 05:09:00* Test Item Value Reference Range Interpretation [...] code = CA) 9.5 mg/dL 8.5-10.1 N [id number] 05:09:00* Test Item Value Reference Range Interpretation Comments MAGNESIUM (test code = MAG) 2.7 mg/dL 1.8-2.4 H PROTHROMBIN [id number] 04:58:00* Test Item Value Reference Range Interpretation [...] code = MPV) 10.0 fL 6.7-11.0 N [id number] 20:30:00* Test Item Value Reference Range Interpretation Comments GLUBED (test code = GLUBED) 282 mg/dL 74-106 H Performed by certified air reduction equipment operator at [facility] [id number] 16:17:00* Test Item Value Reference Range Interpretation Comments GLUBED (test code = GLUBED) 198 mg/dL 74-106 H Performed by certified air reduction equipment operator at [facility] - XR SWLW FUNC W/C [id number] 14:34:00 FAX: Hollie Robles MD [place]: B St: ADM FAX: Wellington Hercules MD [phone] Name: ARY ALEJO [facility] [employer] [facility] [employer] : 1935 Age/S: 83/M [address] [facility] Unit #: [id number] Loc: [place] [address] Phys: Hollie Robles MD Acct: [id number] Dis Date: Status: ADM IN PHONE #: [phone] Exam Date: 01/28/2019 1350 FAX #: [phone] Reason: ASSESS SWALLOW EXAMS: CPT CODE: [id number] XR SWLW FUNC W/C V 54803 CLINICAL HISTORY: ASSESS SWALLOW TECHNIQUE: Fluoroscopic swallow [...] by Richi Godinez MD on 01/28/2019 at 1434 Reported and signed by: Richi Godinez MD CC: Hollie Robles MD; Wellington Pace MD Technologist: RT LIANA(Jade) Trnscrd Date/Time/By: 01/28/2019 (4728) : By: [email or web address] Orig Print D/T: S: 01/28/2019 (6891) PAGE 1 Signed Report GLUBED 2019-01-28 11:37:00* Test Item Value Reference Range Interpretation Comments GLUBED (test code = GLUBED) 290 mg/dL 74-106 H Performed by certified air reduction equipment operator at [facility] - XR CHEST 1 [id number] 08:46:00 FAX: Lex Gao [place]: B St: ADM FAX: Wellington Hercules MD [phone] Name: ARY ALEJO [employer] : 1935 Age/S: 83/M [address] [facility] Unit #: [id number] Loc: [place] [address] Phys: Lex Gao Acct: [id number] Dis Date: Status: ADM IN PHONE #: [phone] Exam Date: 01/28/2019 08 FAX #: [phone] Reason: respiratory failure EXAMS: CPT CODE: [id number] XR CHEST 1 V 58783 REASON FOR EXAM: respiratory failure Exam Order [...] Cardiac pulmonary findings appear grossly unchanged. Location: [facility] Electronic ally Signed by Richi Godinez MD on 01/28/2019 at 0846 Repo rted and signed by: Richi Godinez MD CC: Lex Gao; Gianfranco Pace MD Technologist: Hodan Valente(R) Trnscrd Date/Time/By: 01/28/2019 (0846) : By: ZachR.RR31 Orig Print D/T: S: 01/28/2019 (0849) PAGE 1 Signed Report [id number] 07:42:00 * Test Item Value Reference Range Interpretation Comments GLUBED (test code = GLUBED) 259 mg/dL 74-106 H Performed by certified air reduction equipment operator at [facility] BASIC METABOLIC [id number] 06:31:00* Test Item Value Reference Range Interpretation [...] code = CA) 9.5 mg/dL 8.5-10.1 N [id number] 06:31:00* Test Item Value Reference Range Interpretation Comments MAGNESIUM (test code = MAG) 2.4 mg/dL 1.8-2.4 N BASIC METABOLIC [id number] 06:25:00* Test Item Value Reference Range Interpretation [...] CALCIUM (test code = CA) mg/dL 8.5-10.1 [id number] 06:25:00* Test Item Value Reference Range Interpretation Comments MAGNESIUM (test code = MAG) mg/dL 1.8-2.4 PROTHROMBIN [id number] 05:18:00* Test Item Value Reference Range Interpretation [...] code = MPV) 10.3 fL 6.7-11.0 N [id number] 20:43:00* Test Item Value Reference Range Interpretation Comments GLUBED (test code = GLUBED) 213 mg/dL 74-106 H Performed by certified air reduction equipment operator at [facility] [id number] 19:12:00* Test Item Value Reference Range Interpretation Comments GLUBED (test code = GLUBED) 222 mg/dL 74-106 H Performed by certified air reduction equipment operator at [facility] ARTERIAL BLOOD [id number] 17:58:00* Test Item Value Reference Range Interpretation [...] = O2CT) 16.9 % vol 18.0-22.0 L [id number] 17:06:00* Test Item Value Reference Range Interpretation Comments GLUBED (test code = GLUBED) 210 mg/dL 74-106 H Performed by certified air reduction equipment operator at [facility] - XR CHEST 1 [id number] 13:35:00 FAX: Blanco Joshua [phone] [place]: B St: ADM FAX: Wellington Hercules MD [phone] Name: ARY ALEJO [employer] : 1935 Age/S: 83/M [address] Unit #: [id number] Loc: [place], [place] [address] Phys: Blanco Joshua Acct: [id number] Dis Date: Status: ADM IN PHONE #: [phone] Exam Date: 01/27/2019 1255 FAX #: [phone] Reason: updated pulm view EXAMS: CPT CODE: [id number] XR CHEST 1 V 81825 REASON FOR EXAM: updated pulm view Exam Order Date: 01/27/2019 5:00 AM Ordering M.DEmperatriz: KAREN Thorpe PROCEDURE: - XR CHEST 1 [...] cannot be excluded. Loc ation: [facility] at 1331 Reported and signed by: Richi Godinez MD CC: Blanco Pritchett; Wellington Pace MD Technologist: RT LIANA(R) Trnscrd Date/Time/By: 01/27/2019 (90 35) : By: Santino.RR31 Orig Print D/T: S: 01/27/2019 (0783) PAGE 1 Signed Report [id number] 12:43:00* Test Item Value Reference Range Interpretation Comments GLUBED (test code = GLUBED) 234 mg/dL 74-106 H Performed by certified air reduction equipment operator at [facility] [id number] 08:25:00* Test Item Value Reference Range Interpretation Comments PHOSPHORUS (test code = PHOS) 7.6 mg/dL 2.5-4.9 H BASIC METABOLIC [id number] 05:41:00* Test Item Value Reference Range Interpretation [...] code = CA) 9.8 mg/dL 8.5-10.1 N [id number] 05:41:00* Test Item Value Reference Range Interpretation Comments MAGNESIUM (test code = MAG) 2.9 mg/dL 1.8-2.4 H BASIC METABOLIC [id number] 05:34:00* Test Item Value Reference Range Interpretation [...] CALCIUM (test code = CA) mg/dL 8.5-10.1 [id number] 05:34:00* Test Item Value Reference Range Interpretation Comments MAGNESIUM (test code = MAG) mg/dL 1.8-2.4 PROTHROMBIN [id number] 05:17:00* Test Item Value Reference Range Interpretation [...] code = MPV) 9.8 fL 6.7-11.0 N [id number] 20:31:00* Test Item Value Reference Range Interpretation Comments GLUBED (test code = GLUBED) 221 mg/dL 74-106 H Performed by certified air reduction equipment operator at [facility] [id number] 16:19:00* Test Item Value Reference Range Interpretation Comments GLUBED (test code = GLUBED) 201 mg/dL 74-106 H Performed by certified air reduction equipment operator at [facility] [id number] 10:59:00* Test Item Value Reference Range Interpretation Comments GLUBED (test code = GLUBED) 366 mg/dL 74-106 H Performed by certified air reduction equipment operator at [facility] - XR CHEST 1 [id number] 07:39:00 FAX: Blanco Joshua [phone] [place]: B St: ADM FAX: Wellington Hercules MD [phone] Name: ARY ALEJO [employer] : 1935 Age/S: 83/M [address] [facility] Unit #: [id number] Loc: V.S15 [place] [address] Phys: Blanco Joshua Acct: [id number] Dis Date: Status: ADM IN PHONE #: [phone] Exam Date: 01/26/2019 043 FAX #: [phone] Reason: updated pulm view EXAMS: CPT CODE: [id number] XR CHEST 1 V 74042 CLINICAL HISTORY: Syncope TECHNIQUE: AP chest x-ray [...] S: 01/26 (0742) PAGE 1 Signed Report [id number] 06:43:00* Test Item Value Reference Range Interpretation Comments MAGNESIUM (test code = MAG) 2.5 mg/dL 1.8-2.4 H BASIC METABOLIC [id number] 06:38:00* Test Item Value Reference Range Interpretation [...] CA) 9.7 mg/dL 8.5-10.1 N BASIC METABOLIC [id number] 06:29:00* Test Item Value Reference Range Interpretation [...] = CA) 9.7 mg/dL 8.5-10.1 N PROTHROMBIN [id number] 06:14:00* Test Item Value Reference Range Interpretation [...] code = MPV) 10.1 fL 6.7-11.0 N [id number] 16:46:00* Test Item Value Reference Range Interpretation Comments GLUBED (test code = GLUBED) 237 mg/dL 74-106 H Performed by certified air reduction equipment operator at [facility] [id number] 10:44:00* Test Item Value Reference Range Interpretation Comments GLUBED (test code = GLUBED) 363 mg/dL 74-106 H Performed by certified air reduction equipment operator at [facility] - XR CHEST 1 [id number] 07:24:00 FAX: Blanco Joshua [phone] [place]: B St: ADM FAX: Wellington Hercules MD [phone] Name: ARY ALEJO [employer] : 1935 Age/S: 83/M [address] Unit #: [id number] Loc: V.S15 [place] [address] Phys: Blanco Joshua Acct: [id number] Dis Date: Status: ADM IN PHONE #: [phone] Exam Date: 01/25/2019511 FAX #: [phone] Reason: updated pulm view EXAMS: CPT CODE: [id number] XR CHEST 1 V 87647 REASON FOR EXAM: updated pulm view Exam Order Date: 01/25/2019 5:00 AM Ordering MAngel: KAREN Thorpe PROCEDURE: - XR CHEST 1 [...] of subsegmental atelectasis and co nsolidation. Location: [facility] at 0724 Reported and sign ed by: Richi Godinez MD CC: Blanco Joshua; Wellington Pace MD Technologist: Hay Roe RT(R); JAMES AKHTAR RT(R) Trn scrd Date/Time/By: 01/25/2019 (07) : By: [email or web address] Orig Print D/T: S : 01/25/2019 (0715) PAGE 1 Signed Report BASIC METABOLIC [id number] 06:42:00* Test Item Value Reference Range Interpretation [...] code = CA) 9.6 mg/dL 8.5-10.1 N [id number] 06:42:00* Test Item Value Reference Range Interpretation Comments MAGNESIUM (test code = MAG) 2.4 mg/dL 1.8-2.4 N PROTHROMBIN [id number] 05:52:00* Test Item Value Reference Range Interpretation [...] code = MPV) 9.8 fL 6.7-11.0 N [id number] 16:15:00* Test Item Value Reference Range Interpretation Comments GLUBED (test code = GLUBED) 217 mg/dL 74-106 H Performed by certified air reduction equipment operator at [facility] [id number] 11:09:00* Test Item Value Reference Range Interpretation Comments GLUBED (test code = GLUBED) 160 mg/dL 74-106 H Performed by certified air reduction equipment operator at [facility] PROCALCITONIN (PCT)2019-01-24 07:30:00* Test Item Value Reference [...] into account the patients history. CBC W/O [id number] 07:24:00* Test Item Value Reference Range Interpretation [...] = MPV) 9.9 fL 6.7-11.0 N PROTHROMBIN [id number] 06:39:00* Test Item Value Reference Range Interpretation [...] heart valves (2.5-3.5) IS PATIENT ON ANTICOAGULANTS? GERRY ANTICOAGULANTS COUMADIN- XR CHEST 1 V 2019-01-24 06:26:00 FAX: Blanco Joshua [phone] [place]: St: [facility] FAX: Y Wellington Pace MD [phone] Name: ARY ALEJO [employer] : 1935 Age/S: 83/M [address] [facility] Unit #: [id number] Loc: V.S15 [place] [address] Phys: Blanco Joshua Acct: [id number] Dis Date: Status: ADM IN PHONE #: [phone] Exam Date: 01/24/2019522 FAX #: [phone] Reason: updated pulm view EXAMS: CPT CODE: [id number] XR CHEST 1 V 91090 CLINICAL HISTORY: updated pulm view TECHNIQUE: AP [...] By: [email or web address] Orig Print D/T: S: 01/24/2019 (8650) PAGE 1 Signed Report BASIC METABOLIC [id number] 06:11:00* Test Item Value Reference Range Interpretation [...] code = CA) 9.2 mg/dL 8.5-10.1 N [id number] 06:11:00* Test Item Value Reference Range Interpretation Comments MAGNESIUM (test code = MAG) 2.4 mg/dL 1.8-2.4 N BASIC METABOLIC [id number] 05:39:00* Test Item Value Reference Range Interpretation [...] CALCIUM (test code = CA) mg/dL 8.5-10.1 [id number] 05:39:00* Test Item Value Reference Range Interpretation Comments MAGNESIUM (test code = MAG) mg/dL 1.8-2.4 - XR CHEST 1 [id number] 18:34:00 FAX: Lex Gao [place]: B St: ADM FAX: Y Wellington Pace MD [phone] Name: ARY ALEJO [employer] : 1935 Age/S: 83/M [address] [facility] Unit #: [id number] Loc: V.S15 [place] [address] Phys: Lex Gao Acct: [id number] Dis Date: Status: ADM IN PHONE #: [phone] Exam Date: 01/23/2019 1800 FAX #: [phone] Reason: NGT TUBE PLACEMENT EXAMS: CPT CODE: [id number] XR CHEST 1 V 56200 REASON FOR EXAM: NGT TUBE PLACEMENT Exam Order Date: 01/23/2019 5:36 PM Ordering M.Chris: KAREN Mclean PROCEDURE: - XR CHEST 1 [...] stomach. The remaining findings are unchanged. Location: [facility] at 1834 Reported and signed by: Richi Godinez MD CC: Lex Gao; Wellington Pace MD Technologist: Briana Walker) Trnscrd Date/Time/By: 01/23/2019 (183) : By: [email or web address] Orig Print D/T: S: 01/23/2019 (1837) PAGE 1 Signed Report [id number] 15:44:00* Test Item Value Reference Range Interpretation Comments GLUBED (test code = GLUBED) 118 mg/dL 74-106 H Performed by certified air reduction equipment operator at [facility] - XR CHEST 1 [id number] 11:34:00 FAX: Lex Gao [place]: B St: ADM FAX: Y Wellington Pace MD [phone] Name: ARY ALEJO [employer] : 1935 Age/S: 83/M [address] [facility] Unit #: [id number] Loc: [address] [address] Phys: Lex Gao Acct: [id number] Dis Date: Status: ADM IN PHONE #: [phone] Exam Date: 01/23/2019925 FAX #: [phone] Reason: NGT TUBE PLACEMENT EXAMS: CPT CODE: [id number] XR CHEST 1 V 09483 HISTORY: NG tube placement. COMPARISON: January 23, [...] sinus are discussed with patient's nurse. at 0122 Reported and signed by: Daron Kraft M.D. CC: Lex Gao; Wellington Pace MD Technologist: Hodan Walker) Trnscrd Date/Time/By: 01/23/2019 (3874) : By: [email or web address] PAGE 1 Signed Report [id number] 11:26:00* Test Item Value Reference Range Interpretation Comments GLUBED (test code = GLUBED) 107 mg/dL 74-106 H Performed by certified air reduction equipment operator at [facility] [id number] 09:35:00* Test Item Value Reference Range Interpretation Comments GLUBED (test code = GLUBED) 70 mg/dL 74-106 L Performed by certified air reduction equipment operator at [facility] BASIC METABOLIC [id number] 06:25:00* Test Item Value Reference Range Interpretation [...] code = CA) 9.4 mg/dL 8.5-10.1 N [id number] 06:25:00* Test Item Value Reference Range Interpretation Comments MAGNESIUM (test code = MAG) 2.2 mg/dL 1.8-2.4 N - XR CHEST 1 [id number] 06:14:00 FAX: Blanco Joshua [phone] [place]: B St: [facility] FAX: Wellington Hercules MD [phone] Name: ARY ALEJO [employer] : 1935 Age/S: 83/M [address] Unit #: [id number] Loc: VEmperatrizS15 [place] [address] Phys: Blanco Joshua Acct: [id number] Dis Date: Status: ADM IN PHONE #: [phone] Exam Date: 01/23/2019520 FAX #: [phone] Reason: updated pulm view EXAMS: CPT CODE: [id number] XR CHEST 1 V 00869 CLINICAL HISTORY: Syncope, hypoxia TECHNIQUE: AP chest [...] (0626) PAGE 1 Signed Report BASIC METABOLIC [id number] 06:08:00* Test Item Value Reference Range Interpretation [...] CALCIUM (test code = CA) mg/dL 8.5-10.1 [id number] 06:08:00* Test Item Value Reference Range Interpretation Comments MAGNESIUM (test code = MAG) mg/dL 1.8-2.4 PROTHROMBIN [id number] 05:50:00* Test Item Value Reference Range Interpretation [...] code = MPV) 9.8 fL 6.7-11.0 N [id number] 00:47:00* Test Item Value Reference Range Interpretation Comments GLUBED (test code = GLUBED) 114 mg/dL 74-106 H [facility] [id number] 21:07:00* Test Item Value Reference Range Interpretation Comments GLUBED (test code = GLUBED) 173 mg/dL 74-106 H Performed by certified air reduction equipment operator at [facility] [id number] 20:32:00* Test Item Value Reference Range Interpretation Comments GLUBED (test code = GLUBED) 146 mg/dL 74-106 H [facility]formed by certified air reduction [facility]~ [id number] 12:29:00* Test Item Value Reference Range Interpretation Comments GLUBED (test code = GLUBED) 165 mg/dL 74-106 H Performed by certified air reduction equipment operator at [facility] [id number] 12:29:00* Test Item Value Reference Range Interpretation Comments GLUBED (test code = GLUBED) 213 mg/dL 74-106 H Performed by certified air reduction equipment operator at [facility] - XR CHEST 1 [id number] 07:15:00 FAX: Blanco Joshua [phone] [place]: B St: ADM FAX: Wellington Hercules MD [phone] Name: ARY ALEJO [employer] : 1935 Age/S: 83/M [address] Unit #: [id number] Loc: V.S15 [place] [address] Phys: Blanco Joshua Acct: [id number] Dis Date: Status: ADM IN PHONE #: [phone] Exam Date: 01/22/2019 0535 FAX #: [phone] Reason: updated pulm view EXAMS: CPT CODE: [id number] XR CHEST 1 V 53386 CLINICAL HISTORY: Syncope, hypoxia TECHNIQUE: AP chest [...] (0719) PAGE 1 Signed Report BASIC METABOLIC [id number] 05:30:00* Test Item Value Reference Range Interpretation [...] code = CA) 8.5 mg/dL 8.5-10.1 N [id number] 05:30:00* Test Item Value Reference Range Interpretation Comments MAGNESIUM (test code = MAG) 2.3 mg/dL 1.8-2.4 N BASIC METABOLIC [id number] 05:12:00* Test Item Value Reference Range Interpretation [...] CALCIUM (test code = CA) mg/dL 8.5-10.1 [id number] 05:12:00* Test Item Value Reference Range Interpretation Comments MAGNESIUM (test code = MAG) mg/dL 1.8-2.4 PROTHROMBIN [id number] 05:06:00* Test Item Value Reference Range Interpretation [...] code = MPV) 10.0 fL 6.7-11.0 N [id number] 03:46:00* Test Item Value Reference Range Interpretation Comments GLUBED (test code = GLUBED) 192 mg/dL 74-106 H Performed by certified air reduction equipment operator at [facility] [id number] 20:17:00* Test Item Value Reference Range Interpretation Comments GLUBED (test code = GLUBED) 187 mg/dL 74-106 H Performed by certified air reduction equipment operator at [facility] B-TYPE NATRIURETIC [id number] 17:30:00* Test Item Value Reference Range Interpretation Comments B-TYPE NATRIURETIC PEPTIDE (test code = BNP) 153.85 pgram/mL 0-100 H [id number] 15:23:00* Test Item Value Reference Range Interpretation Comments GLUBED (test code = GLUBED) 146 mg/dL 74-106 H Performed by certified air reduction equipment operator at [facility] [id number] 11:02:00* Test Item Value Reference Range Interpretation Comments GLUBED (test code = GLUBED) 185 mg/dL 74-106 H [facility] by certified air reduction [facility]~ PROTHROMBIN [id number] 10:48:00* Test Item Value Reference Range Interpretation [...] (2.5-3.5) IS PATIENT ON ANTICOAGULANTS? YLIST ANTICOAGULANTS [id number] 07:32:00* Test Item Value Reference Range Interpretation Comments GLUBED (test code = GLUBED) 224 mg/dL 74-106 H Performed by certified air reduction equipment operator at [facility] BASIC METABOLIC [id number] 06:39:00* Test Item Value Reference Range Interpretation [...] code = CA) 8.5 mg/dL 8.5-10.1 N [id number] 06:39:00* Test Item Value Reference Range Interpretation Comments MAGNESIUM (test code = MAG) 1.9 mg/dL 1.8-2.4 N CBC W/O [id number] 06:35:00* Test Item Value Reference Range Interpretation [...] MPV) 10.0 fL 6.7-11.0 N BASIC METABOLIC [id number] 06:35:00* Test Item Value Reference Range Interpretation [...] code = CA) 8.5 mg/dL 8.5-10.1 N [id number] 06:35:00* Test Item Value Reference Range Interpretation Comments MAGNESIUM (test code = MAG) mg/dL 1.8-2.4 - XR CHEST 1 [id number] 06:17:00 FAX: Blanco Joshua [phone] [place]: St: ADM FAX: Wellington Hercules MD [phone] Name: ARY ALEJO [employer] : 1935 Age/S: 83/M [address] [facility]: [id number] Loc: V.S15 [place] [address] Phys: Blanco Joshua Acct: [id number] Dis Date: Status: ADM IN PHONE #: [phone] Exam Date: 01/21/2019 05 FAX #: [phone] Reason: updated pulm view. EXAMS: CPT CODE: [id number] XR CHEST 1 V 12532 CLINICAL HISTORY: Syncope, hypoxia TECHNIQUE: AP chest [...] S: 01/21/2019 (0620) PAGE 1 Signed Report [id number] 22:18:00* Test Item Value Reference Range Interpretation Comments GLUBED (test code = GLUBED) 139 mg/dL 74-106 H Performed by certified air reduction equipment operator at [facility] [id number] 16:29:00* Test Item Value Reference Range Interpretation Comments GLUBED (test code = GLUBED) 243 mg/dL 74-106 H Performed by certified air reduction equipment operator at [facility] [id number] 12:24:00* Test Item Value Reference Range Interpretation Comments GLUBED (test code = GLUBED) 259 mg/dL 74-106 H [facility] certified air reduction equipment [facility]~ HGB [id number] 11:48:00* Test Item Value Reference Range Interpretation Comments HEMOGLOBIN (test code = HGB) 7.6 gram/dL 13.0-17.5 L HEMATOCRIT (test code = HCT) 24.8 % 42.0-52.0 L [id number] 08:11:00* Test Item Value Reference Range Interpretation Comments GLUBED (test code = GLUBED) 188 mg/dL 74-106 H Per[facility] certified air reduction [facility]~ - XR CHEST 1 [id number] 08:04:00 FAX: Destini Ordaz NP [phone] [place]: B St: ADM FAX: Wellington Hercules MD [phone] Name: ARY ALEJO [employer] : 1935 Age/S: 83/M [address] [facility] Unit #: [id number] Loc: V.S15 [place], [place] [address] Phys: Destini Ordaz NP Acct: [id number] Dis Date: Status: ADM IN PHONE #: [phone] Exam Date: 01/20/2019 0712 FAX #: [phone] Reason: sob EXAMS: CPT CODE: [id number] XR CHEST 1 V 65009 CLINICAL HISTORY: Shortness of breath TECHNIQUE: AP chest x-ray COMPARISON: Previous day. IMPRESSION: Worsening patchy bibasilar airspace opacification and small effusions. Cardiomegaly. Atherosclerotic vascular calcification of the thoracic aorta. ET tube, NG tube, right permacath, and left central venous catheter. LOCATION: [facility] at 0804 Reported and signed by: Willow Robles D.O. CC: Destini Ordaz NP; Wellington Pace MD Technologist: Blessing Vazquez Trnscrd Date/Time/By: 9 (0804) : By: [email or web address] Orig Print D/T: S: 01/20/2019 (1007) PAGE 1 Signed Report BASIC METABOLIC [id number] 05:25:00* Test Item Value Reference Range Interpretation [...] code = CA) 9.0 mg/dL 8.5-10.1 N [id number] 05:25:00* Test Item Value Reference Range Interpretation Comments PHOSPHORUS (test code = PHOS) 5.3 mg/dL 2.5-4.9 H [id number] 05:25:00* Test Item Value Reference Range Interpretation Comments MAGNESIUM (test code = MAG) 2.2 mg/dL 1.8-2.4 N CALCIUM [id number] 05:25:00* Test Item Value Reference Range Interpretation Comments CALCIUM IONIZED (test code = PAUL) 1.22 mmol/L 1.12-1.32 N CBC W/MANUAL [id number] 05:22:00* Test Item Value Reference Range Interpretation [...] into account the patients history. BASIC METABOLIC [id number] 05:02:00* Test Item Value Reference Range Interpretation [...] code = CA) 9.0 mg/dL 8.5-10.1 N [id number] 05:02:00* Test Item Value Reference Range Interpretation Comments PHOSPHORUS (test code = PHOS) 5.3 mg/dL 2.5-4.9 H [id number] 05:02:00* Test Item Value Reference Range Interpretation Comments MAGNESIUM (test code = MAG) 2.2 mg/dL 1.8-2.4 N CALCIUM [id number] 05:02:00* Test Item Value Reference Range Interpretation Comments CALCIUM IONIZED (test code = PAUL) mmol/L 1.12-1.32 BASIC METABOLIC [id number] 04:38:00* Test Item Value Reference Range Interpretation [...] CALCIUM (test code = CA) mg/dL 8.5-10.1 [id number] 04:38:00* Test Item Value Reference Range Interpretation Comments PHOSPHORUS (test code = PHOS) mg/dL 2.5-4.9 [id number] 04:38:00* Test Item Value Reference Range Interpretation Comments MAGNESIUM (test code = MAG) mg/dL 1.8-2.4 CALCIUM [id number] 04:38:00* Test Item Value Reference Range Interpretation Comments CALCIUM IONIZED (test code = PAUL) mmol/L 1.12-1.32 PROTHROMBIN [id number] 04:28:00* Test Item Value Reference Range Interpretation [...] MORPHOLOGY (test code = PLTMORPH) CBC W/MANUAL [id number] 04:17:00* Test Item Value Reference Range Interpretation [...] MORPHOLOGY (test code = PLTMORPH) CBC W/MANUAL [id number] 04:17:00* Test Item Value Reference Range Interpretation [...] MORPHOLOGY (test code = PLTMORPH) CBC W/MANUAL [id number] 04:17:00* Test Item Value Reference Range Interpretation [...] MORPHOLOGY (test code = PLTMORPH) CBC W/MANUAL [id number] 04:17:00* Test Item Value Reference Range Interpretation [...] PLTEST) PLATELET MORPHOLOGY (test code = PLTMORPH) [id number] 23:41:00* Test Item Value Reference Range Interpretation Comments GLUBED (test code = GLUBED) 238 mg/dL 74-106 H Performed by certified air reduction equipment operator at [facility] [id number] 19:45:00* Test Item Value Reference Range Interpretation Comments GLUBED (test code = GLUBED) 287 mg/dL 74-106 H Performed by certified air reduction equipment operator at [facility] T4 [id number] 18:34:00* Test Item Value Reference Range Interpretation Comments T4 FREE (test code = T4F) 1.03 ng/dL 0.76-1.46 N THYROID STIMULATING [id number] 18:34:00* Test Item Value Reference Range Interpretation Comments THYROID STIMULATING HORMONE (test code = TSH) 0.051 uIU/mL 0.36-3.7 4 L TSH REFERENCE RANGES: EUTHYROID: 0.35 - 4.3 mIU/mL HYPO : > 5.5 mIU/mL HYPER : < 0.35 mIU/mL [id number] 18:30:00* Test Item Value Reference Range Interpretation Comments GLYCOSYLATED HEMOGLOBIN (HA1C) (test code = GLYHGB) 7.0 % HbA1 4. 8-6.0 H ESTIMATED AVERAGE GLUCOSE (test code = EAG) 154 MG/DL [id number] 17:57:00* Test Item Value Reference Range Interpretation Comments GLUBED (test code = GLUBED) 272 mg/dL 74-106 H Performed by certified air reduction equipment operator at [facility] [id number] 14:34:00* Test Item Value Reference Range Interpretation Comments GLUBED (test code = GLUBED) 298 mg/dL 74-106 H Performed by certified air reduction equipment operator at [facility] [id number] 13:26:00* Test Item Value Reference Range Interpretation Comments GLUBED (test code = GLUBED) 302 mg/dL 74-106 H Performed by certified air reduction equipment operator at [facility] - XR CHEST 1 [id number] 07:43:00 FAX: Blanco Joshua [phone] [place]: St: ADM FAX: Wellington Hercules MD [phone] Name: ARY ALEJO [employer] : 1935 Age/S: 83/M [address] [facility] Unit #: [id number] Loc: [address] [address] Phys: Blanco Joshua Acct: [id number] Dis Date: Status: ADM IN PHONE #: [phone] Exam Date: 01/19/2019 0420 FAX #: [phone] Reason: VENT EXAMS: CPT CODE: [id number] XR CHEST 1 V 16626 REASON FOR EXAM: VENT Exam Order Date: [...] 01/19/2019 at 0743 Reported and signed by: Richi Godinez MD CC: Blanco Joshua; Wellington Velez MD Technologist: YELENA ATKINS RT; AJMES HI, RT(R) Trnscrd Date/Time/By: 01/19/2019 (0743) : By: [email or web address] 1 Orig Print D/T: S: 01/19/2019 (0746) PAGE 1 Signed Report GLUBED 2019-01-19 06:21:00* Test Item Value Reference Range Interpretation Comments GLUBED (test code = GLUBED) 254 mg/dL 74-106 H Performed by certified air reduction equipment operator at [facility] PROCALCITONIN (PCT)2019-01-19 06:18:00* Test Item Value Reference [...] into account the patients history. BASIC METABOLIC [id number] 06:08:00* Test Item Value Reference Range Interpretation [...] code = CA) 8.8 mg/dL 8.5-10.1 N [id number] 06:08:00* Test Item Value Reference Range Interpretation Comments PHOSPHORUS (test code = PHOS) 4.4 mg/dL 2.5-4.9 N [id number] 06:08:00* Test Item Value Reference Range Interpretation Comments MAGNESIUM (test code = MAG) 1.9 mg/dL 1.8-2.4 N CALCIUM [id number] 06:08:00* Test Item Value Reference Range Interpretation Comments CALCIUM IONIZED (test code = PAUL) 1.23 mmol/L 1.12-1.32 N PROTHROMBIN [id number] 05:47:00* Test Item Value Reference Range Interpretation [...] (test code = MDIFF) NO BASIC METABOLIC [id number] 05:16:00* Test Item Value Reference Range Interpretation [...] CALCIUM (test code = CA) mg/dL 8.5-10.1 [id number] 05:16:00* Test Item Value Reference Range Interpretation Comments PHOSPHORUS (test code = PHOS) mg/dL 2.5-4.9 [id number] 05:16:00* Test Item Value Reference Range Interpretation Comments MAGNESIUM (test code = MAG) mg/dL 1.8-2.4 CALCIUM [id number] 05:16:00* Test Item Value Reference Range Interpretation Comments CALCIUM IONIZED (test code = PAUL) mmol/L 1.12-1.32 BASIC METABOLIC [id number] 05:16:00* Test Item Value Reference Range Interpretation [...] CALCIUM (test code = CA) mg/dL 8.5-10.1 [id number] 05:16:00* Test Item Value Reference Range Interpretation Comments PHOSPHORUS (test code = PHOS) mg/dL 2.5-4.9 [id number] 05:16:00* Test Item Value Reference Range Interpretation Comments MAGNESIUM (test code = MAG) mg/dL 1.8-2.4 CALCIUM [id number] 05:16:00* Test Item Value Reference Range Interpretation Comments CALCIUM IONIZED (test code = PAUL) 1.23 mmol/L 1.12-1.32 N COMPREHENSIVE METABOLIC [id number] 23:40:00* Test Item Value Reference Range Interpretation [...] due to change in reagent. COMPREHENSIVE METABOLIC [id number] 23:20:00* Test Item Value Reference Range Interpretation [...] TOTAL (test code = ALKP) IUnit/L 45-117 [id number] 22:36:00* Test Item Value Reference Range Interpretation Comments GLUBED (test code = GLUBED) 188 mg/dL 74-106 H Performed by certified air reduction equipment operator at [facility] [id number] 22:36:00* Test Item Value Reference Range Interpretation Comments GLUBED (test code = GLUBED) 176 mg/dL 74-106 H Performed by certified air reduction equipment operator at [facility] [id number] 22:36:00* Test Item Value Reference Range Interpretation Comments GLUBED (test code = GLUBED) 132 mg/dL 74-106 H Performed by certified air reduction equipment operator at [facility] [id number] 19:33:00* Test Item Value Reference Range Interpretation Comments GLUBED (test code = GLUBED) 177 mg/dL 74-106 H Performed by certified air reduction equipment operator at [facility] [id number] 16:55:00* Test Item Value Reference Range Interpretation Comments GLUBED (test code = GLUBED) 190 mg/dL 74-106 H Performed by certified air reduction equipment operator at [facility] [id number] 16:55:00* Test Item Value Reference Range Interpretation Comments GLUBED (test code = GLUBED) 203 mg/dL 74-106 H Performed by certified air reduction equipment operator at [facility] BASIC METABOLIC [id number] 16:54:00* Test Item Value Reference Range Interpretation [...] CA) 8.7 mg/dL 8.5-10.1 N BASIC METABOLIC [id number] 16:48:00* Test Item Value Reference Range Interpretation [...] CALCIUM (test code = CA) mg/dL 8.5-10.1 [id number] 14:48:00* Test Item Value Reference Range Interpretation Comments GLUBED (test code = GLUBED) 229 mg/dL 74-106 H Performed by certified air reduction equipment operator at [facility] [id number] 13:18:00* Test Item Value Reference Range Interpretation Comments GLUBED (test code = GLUBED) 182 mg/dL 74-106 H Performed by certified air reduction equipment operator at [facility] [id number] 13:18:00* Test Item Value Reference Range Interpretation Comments GLUBED (test code = GLUBED) 137 mg/dL 74-106 H Performed by certified air reduction equipment operator at [facility] [id number] 13:18:00* Test Item Value Reference Range Interpretation Comments GLUBED (test code = GLUBED) 148 mg/dL 74-106 H Performed by certified air reduction equipment operator at [facility] COMPREHENSIVE METABOLIC [id number] 13:13:00* Test Item Value Reference Range Interpretation [...] due to change in reagent. COMPREHENSIVE METABOLIC [id number] 13:01:00* Test Item Value Reference Range Interpretation [...] TOTAL (test code = ALKP) IUnit/L 45-117 [id number] 09:33:00* Test Item Value Reference Range Interpretation Comments GLUBED (test code = GLUBED) 133 mg/dL 74-106 H Performed by certified air reduction equipment operator at [facility] [id number] 09:33:00* Test Item Value Reference Range Interpretation Comments GLUBED (test code = GLUBED) 141 mg/dL 74-106 H Performed by certified air reduction equipment operator at [facility] BASIC METABOLIC [id number] 09:22:00* Test Item Value Reference Range Interpretation [...] = CA) 8.8 mg/dL 8.5-10.1 N PROTHROMBIN [id number] 09:14:00* Test Item Value Reference Range Interpretation [...] 1 V 2019-01-18 08:05:00 FAX: Lex Gao [place]: B St: ADM FAX: Wellington Hecrules MD [phone] Name: MELOARY PETRA [employer] : 1935 Age[facility]S: 83[facility] [address] [facility]: [id number] Loc: V.S15 [place], [place] [address] Phys: Lex Gao Acct: [id number] Dis Date: Status: ADM IN PHONE #: [phone] Exam Date: 01/18/2019 0750 FAX #: [phone] Reason: INTUBATED PATIENT EXAMS: CPT CODE: [id number] XR CHEST 1 V 56940 REASON FOR EXAM: INTUBATED PATIENT EXAM ORDER DATE: 01/18/2019 12:00 AM Ordering Jerry: KAREN Mclean PROCEDURE: - [...] Trnscrd Date/Troy e/By: 01/18/2019 (0805) : By: [email or web address] Orig Print D/T: S: 01/18/2019 (0808) PAGE 1 Signed Report [id number] 07:57:00* Test Item Value Reference Range Interpretation Comments GLUBED (test code = GLUBED) 171 mg/dL 74-106 H Performed by certified air reduction equipment operator at [facility] [id number] 07:57:00* Test Item Value Reference Range Interpretation Comments GLUBED (test code = GLUBED) 224 mg/dL 74-106 H Performed by certified air reduction equipment operator at [facility] [id number] 07:57:00* Test Item Value Reference Range Interpretation Comments GLUBED (test code = GLUBED) 264 mg/dL 74-106 H Performed by certified air reduction equipment operator at [facility] [id number] 07:57:00* Test Item Value Reference Range Interpretation Comments GLUBED (test code = GLUBED) 256 mg/dL 74-106 H Performed by certified air reduction equipment operator at [facility] [id number] 07:57:00* Test Item Value Reference Range Interpretation Comments GLUBED (test code = GLUBED) 262 mg/dL 74-106 H Performed by certified air reduction equipment operator at [facility] [id number] 07:57:00* Test Item Value Reference Range Interpretation Comments GLUBED (test code = GLUBED) 350 mg/dL 74-106 H Performed by certified air reduction equipment operator at [facility] BASIC METABOLIC [id number] 04:35:00* Test Item Value Reference Range Interpretation [...] code = CA) 8.8 mg/dL 8.5-10.1 N [id number] 04:35:00* Test Item Value Reference Range Interpretation Comments PHOSPHORUS (test code = PHOS) 5.3 mg/dL 2.5-4.9 H [id number] 04:35:00* Test Item Value Reference Range Interpretation Comments MAGNESIUM (test code = MAG) 1.9 mg/dL 1.8-2.4 N CALCIUM [id number] 04:35:00* Test Item Value Reference Range Interpretation Comments CALCIUM IONIZED (test code = PAUL) 1.18 mmol/L 1.12-1.32 N CBC W/MANUAL [id number] 04:33:00* Test Item Value Reference Range Interpretation [...] IMMAT) 0 % 0-0 N BASIC METABOLIC [id number] 04:32:00* Test Item Value Reference Range Interpretation [...] CALCIUM (test code = CA) mg/dL 8.5-10.1 [id number] 04:32:00* Test Item Value Reference Range Interpretation Comments PHOSPHORUS (test code = PHOS) mg/dL 2.5-4.9 [id number] 04:32:00* Test Item Value Reference Range Interpretation Comments MAGNESIUM (test code = MAG) mg/dL 1.8-2.4 CALCIUM [id number] 04:32:00* Test Item Value Reference Range Interpretation Comments CALCIUM IONIZED (test code = PAUL) 1.18 mmol/L 1.12-1.32 N BASIC METABOLIC [id number] 04:24:00* Test Item Value Reference Range Interpretation [...] CALCIUM (test code = CA) mg/dL 8.5-10.1 [id number] 04:24:00* Test Item Value Reference Range Interpretation Comments PHOSPHORUS (test code = PHOS) mg/dL 2.5-4.9 [id number] 04:24:00* Test Item Value Reference Range Interpretation Comments MAGNESIUM (test code = MAG) mg/dL 1.8-2.4 CALCIUM [id number] 04:24:00* Test Item Value Reference Range Interpretation Comments CALCIUM IONIZED (test code = PAUL) mmol/L 1.12-1.32 CBC W/MANUAL [id number] 04:12:00* Test Item Value Reference Range Interpretation [...] MORPHOLOGY (test code = PLTMORPH) CBC W/MANUAL [id number] 04:09:00* Test Item Value Reference Range Interpretation [...] MORPHOLOGY (test code = PLTMORPH) CBC W/MANUAL [id number] 04:09:00* Test Item Value Reference Range Interpretation [...] MORPHOLOGY (test code = PLTMORPH) CBC W/MANUAL [id number] 04:09:00* Test Item Value Reference Range Interpretation [...] MORPHOLOGY (test code = PLTMORPH) CBC W/MANUAL [id number] 04:09:00* Test Item Value Reference Range Interpretation [...] PLATELET MORPHOLOGY (test code = PLTMORPH) LACTIC [id number] 00:35:00* Test Item Value Reference Range Interpretation Comments LACTIC ACID (test code = LACT) 2.3 mmol/L 0.4-1.9 HH Results called to [id number] by V.LABARIELLAS 01/18/19 0035Critical results verified and read back by Nurse? Y LACTIC [id number] 21:30:00* Test Item Value Reference Range Interpretation Comments LACTIC ACID (test code = LACT) 3.1 mmol/L 0.4-1.9 HH Results called to AQS2586 by V.LABEmperatrizLT 01/17/199Critical results verified and read back by Nurse? Y BASIC METABOLIC [id number] 21:30:00* Test Item Value Reference Range Interpretation [...] code = CA) 8.6 mg/dL 8.5-10.1 N [id number] 21:30:00* Test Item Value Reference Range Interpretation Comments PHOSPHORUS (test code = PHOS) 4.3 mg/dL 2.5-4.9 N [id number] 21:30:00* Test Item Value Reference Range Interpretation Comments MAGNESIUM (test code = MAG) 1.8 mg/dL 1.8-2.4 N [id number] 19:48:00* Test Item Value Reference Range Interpretation Comments GLUBED (test code = GLUBED) 333 mg/dL 74-106 H Performed by certified air reduction equipment operator at [facility] [id number] 19:48:00* Test Item Value Reference Range Interpretation Comments GLUBED (test code = GLUBED) 361 mg/dL 74-106 H Performed by certified air reduction equipment operator at [facility] [id number] 19:48:00* Test Item Value Reference Range Interpretation Comments GLUBED (test code = GLUBED) 410 mg/dL 74-106 H Performed by certified air reduction equipment operator at [facility] [id number] 17:32:00* Test Item Value Reference Range Interpretation Comments POTASSIUM (test code = K) 5.6 mmol/L 3.5-5.1 H URINALYSIS [id number] 16:46:00* Test Item Value Reference Range Interpretation [...] = AMORU) FEW #/LPF Urine Source? CatheterURINALYSIS [id number] 16:19:00* Test Item Value Reference Range Interpretation [...] NONE Urine Source? Catheter- US GUIDANCE VASC [id number] 13:58:00 Name: ARY ALEJO [facility] : 1935 Age/S: 83 / M [address] [facility] Unit #: [id number] Loc: [place] [address] Phys: Maxime Pace MD Acct: [id number] Di s Date: Status: ADM IN PHONE #: Exam Date: 01/17/2019 1241 FAX #: [phone] Reason: EXAMS: CPT CODE: [id number] US GUIDANCE VASC ACCESS 44033 Fluoro Time: DAP (Gy m2): Air Kerma [...] l ine is ready for use. at 9706 Reported and signed by: Major Padron CC: Wellington Pace MD Technolog ist: Dakota Ernesto RT(R) Trnscb Date/Time: (9669) t.[email or web address].VTL Orig Print D/T: S: 01/17/2019 ( 5103) PAGE 1 Signed Report - XR CHEST 1 [id number] 13:13:00 FAX: Wellington Hercules MD [phone] [place]: St: ADM Name: ARY CASH [employer] : [birth year] Age/S: 83/M [address] [facility] Unit #: [id number] Loc: [place] [address] Phys: Tavares Brar MD Acct: [id number] Dis Date: Status: ADM IN PHONE #: [phone] Exam Date: 01/17/2019 1243 FAX #: [phone] Reason: POST LINE PLACEMENT EXAMS: CPT CODE: [id number] XR CHEST 1 V 42318 REASON FOR EXAM: POST LINE PLACEMENT Exam [...] Technologist: Mylene Cisneros RT(R) Trnscrd Date/Time/By: 01/17/2019 (5713) : By: [email or web address] Orig Print D/T: S: 01/17/2019 (7364) PAGE 1 Signed Report [id number] 11:55:00* Test Item Value Reference Range Interpretation Comments GLUBED (test code = GLUBED) 412 mg/dL 74-106 H Performed by certified air reduction equipment operator at [facility] BASIC METABOLIC [id number] 09:13:00* Test Item Value Reference Range Interpretation [...] code = CA) 8.2 mg/dL 8.5-10.1 L [id number] 09:13:00* Test Item Value Reference Range Interpretation Comments PHOSPHORUS (test code = PHOS) 5.0 mg/dL 2.5-4.9 H [id number] 09:13:00* Test Item Value Reference Range Interpretation Comments MAGNESIUM (test code = MAG) 1.7 mg/dL 1.8-2.4 L CALCIUM [id number] 09:13:00* Test Item Value Reference Range Interpretation Comments CALCIUM IONIZED (test code = PAUL) 1.03 mmol/L 1.12-1.32 L AG HEPAT B [id number] 09:10:00* Test Item Value Reference Range Interpretation Comments AG HEPAT B SURF (test code = HBSAG) Nonreactive Index Nonreactive CBC W/MANUAL [id number] 09:09:00* Test Item Value Reference Range Interpretation [...] code = IMMAT) 0 % 0-0 N [id number] 08:32:00* Test Item Value Reference Range Interpretation Comments GLUBED (test code = GLUBED) 392 mg/dL 74-106 H Performed by certified air reduction equipment operator at [facility] BASIC METABOLIC [id number] 08:16:00* Test Item Value Reference Range Interpretation [...] code = CA) 8.2 mg/dL 8.5-10.1 L [id number] 08:16:00* Test Item Value Reference Range Interpretation Comments PHOSPHORUS (test code = PHOS) 5.0 mg/dL 2.5-4.9 H [id number] 08:16:00* Test Item Value Reference Range Interpretation Comments MAGNESIUM (test code = MAG) 1.7 mg/dL 1.8-2.4 L CALCIUM [id number] 08:16:00* Test Item Value Reference Range Interpretation Comments CALCIUM IONIZED (test code = PAUL) mmol/L 1.12-1.32 LACTIC [id number] 07:59:00* Test Item Value Reference Range Interpretation Comments LACTIC ACID (test code = LACT) 5.9 mmol/L 0.4-1.9 Results called toBOC 6894 by DARIUS 01/17/19 0758Critical results verified and read back by Nurse? Y CBC W/MANUAL [id number] 07:58:00* Test Item Value Reference Range Interpretation [...] MORPHOLOGY (test code = PLTMORPH) CBC W/MANUAL [id number] 07:58:00* Test Item Value Reference Range Interpretation [...] MORPHOLOGY (test code = PLTMORPH) CBC W/MANUAL [id number] 07:58:00* Test Item Value Reference Range Interpretation [...] MORPHOLOGY (test code = PLTMORPH) CBC W/MANUAL [id number] 07:58:00* Test Item Value Reference Range Interpretation [...] MORPHOLOGY (test code = PLTMORPH) CBC W/MANUAL [id number] 07:58:00* Test Item Value Reference Range Interpretation [...] PLATELET MORPHOLOGY (test code = PLTMORPH) LACTIC [id number] 04:05:00* Test Item Value Reference Range Interpretation Comments LACTIC ACID (test code = LACT) 3.3 mmol/L 0.4-1.9 HH Results called to [id number] by WANDER 01/17/19 0405Critical results verified and read back by Nurse? Y - XR CHEST 1 [id number] 02:13:00 FAX: Wellington Hercules MD [phone] [place]: B St: ADM FAX: Es Alonso MD [phone] Name: ARY ALEJO [employer] : 1935 Age/S: 83/M [address] [facility] Unit #: [id number] Loc: [place], [place] [address] Phys: Es Alonso MD Acct: [id number] Dis Date: Status: ADM IN PHONE #: [phone] Exam Date: 01/17/2019 0205 FAX #: [phone] Reason: line placement EXAMS: CPT CODE: [id number] XR CHEST 1 V 08146 AFTER HOURS SERVICE ON: 01/17/2019 2:12 AM [...] By: [email or web address] Orig Print D/T: S: 01/17/2019 (6) PAGE 1 Signed Report PROCALCITONIN (PCT)2019-01-17 02:01:00* [...] taking into account the patients history. LACTIC [id number] 01:55:00* Test Item Value Reference Range Interpretation Comments LACTIC ACID (test code = LACT) 2.8 mmol/L 0.4-1.9 Results called to [id number] by WANDER 01/17/19 0155Critical results verified and read back by Nurse? Y - CTA CHEST FOR [id number] 00:37:00 Name: ARY ALEJO [employer] : 1935 Age/S: 83 / M [address] [facility] Unit #: [id number] Loc: [place] [address] Phys: Es Alonso MD Acct: [id number] Dis Date: Status: ADM IN PHONE #: [phone] Exam Date: 01/17/2019 0015 FAX #: [phone] Reason: SOB, SYNCOPE, TACHYCARDIA EXAMS: CPT CODE: [id number] [place] [address] LOCATION: Q15 HISTORY: 83-year-old male who presents [...] 1 Signed Report (CONTINUED) Name: ARY ALEJO [employer] : 1935 Age/S: 83 / M [address] [facility] Unit #: [id number] Loc: [place] [address] Phys: Es Alonso MD Acct: [id number] Dis Date: Status: ADM IN PHONE #: [phone] Exam Date: 01/17/2019 0015 FAX #: [phone] Reason: SOB, SYNCOPE, TACHYCARDIA EXAMS: CPT CODE: [id number] [place] [address] <Continued> Widespread alveolar pneumonia is present. Please see above comments for details. at 0037 Reported and signed by: Moiz Conner M.D. CC: Wellington Pace MD; Es Alonso MD Technologist:ARY DINH CT CTDI: DLP: Trnscb Date/Time: 01/17/2019 (003) [email or web address] Orig Print D/T: S: 01/17/2019 (0041) PAGE 2 Signed Report ARTERIAL BLOOD [id number] 00:33:00* Test Item Value Reference Range Interpretation [...] vol 18.0-22.0 L - XR CHEST 1 [id number] 23:03:00 FAX: Wellington Hercules MD [phone] [place]: B St: [facility] FAX: Es Alonso MD [phone] Name: MELOARY PETRA [employer] : 1935 Age/S: 83/M [address] [facility] Unit #: [id number] Loc: [place] [address] Phys: Es Alonso MD Acct: [id number] Dis Date: Status: ADM IN PHONE #: [phone] Exam Date: 01/16/20192249 FAX #: [phone] Reason: TUBE PLACEMENT EXAMS: CPT CODE: [id number] XR CHEST 1 V 54592 HISTORY: Tube placement. COMPARISON: Same day. ET [...] MD; Es Alonso MD Technologist: Valentine Brody Trnscrd Date/Time/By: 01/16/2019 (8444) : By: [email or web address] Orig Print D/T: S: 01/16/2019 (4503) PAGE 1 Signed Report B-TYPE NATRIURETIC [id number] 19:14:00* Test Item Value Reference Range Interpretation Comments B-TYPE NATRIURETIC PEPTIDE (test code = BNP) 68.46 pgram/mL 0-100 N PROTHROMBIN [id number] 18:44:00* Test Item Value Reference Range Interpretation [...] (2.5-3.5) IS PATIENT ON ANTICOAGULANTS? NTHROMBOPLASTIN TIME [id number] 18:44:00* Test Item Value Reference Range Interpretation Comments THROMBOPLASTIN TIME PARTIAL (test code = PTT) 33.6 seconds 25.0-36. 5 N IS PATIENT ON ANTICOAGULANTS? NBASIC METABOLIC [id number] 18:37:00* Test Item Value Reference Range Interpretation [...] CA) 7.9 mg/dL 8.5-10.1 L HEPATIC FUNCTION [id number] 18:37:00* Test Item Value Reference Range Interpretation [...] reference range due to change in reagent. [id number] 18:37:00* Test Item Value Reference Range Interpretation Comments LIPASE (test code = LIP) 18 U/L 73.0-393.0 L [id number] 18:37:00* Test Item Value Reference Range Interpretation Comments MAGNESIUM (test code = MAG) 2.0 mg/dL 1.8-2.4 N [id number] 18:37:00* Test Item Value Reference Range Interpretation Comments TROPONIN-I (test code = TROPI) <0.015 ng/mL 0-0.045 N CBC W/O [id number] 18:33:00* Test Item Value Reference Range Interpretation [...] MPV) 9.5 fL 6.7-11.0 N ARTERIAL BLOOD [id number] 18:32:00* Test Item Value Reference Range Interpretation [...] back by Debbie 18:22 - 01/16/2019; by [email or web address] METHEMOGLOBIN (test code = METHGB) 0.3 % 0.0-1.50 N O2 CONTENT (test code = O2CT) 14.8 % vol 18.0-22.0 L BASIC METABOLIC [id number] 18:29:00* Test Item Value Reference Range Interpretation [...] code = CA) mg/dL 8.5-10.1 HEPATIC FUNCTION [id number] 18:29:00* Test Item Value Reference Range Interpretation [...] TOTAL (test code = ALKP) IUnit/L 45-117 [id number] 18:29:00* Test Item Value Reference Range Interpretation Comments LIPASE (test code = LIP) U/L 73.0-393.0 [id number] 18:29:00* Test Item Value Reference Range Interpretation Comments MAGNESIUM (test code = MAG) mg/dL 1.8-2.4 [id number] 18:29:00* Test Item Value Reference Range Interpretation Comments TROPONIN-I (test code = TROPI) ng/mL 0-0.045 - XR CHEST 1 [id number] 18:08:00 FAX: Wellington Hercules MD [phone] [place]: B St: PRE FAX: Es Alonso MD [phone] Name: ARY ALEJO [employer] : 1935 Age/S: 83/M [address] [facility] Unit #: [id number] Loc: [place] [address] Phys: Es Alonso MD Acct: [id number] Dis Date: Status: PRE ER PHONE #: [phone] Exam Date: 01/16/2019 1801 FAX #: [phone] Reason: Shortness of Breath EXAMS: CPT CODE: [id number] XR CHEST 1 V 50282 HISTORY: Shortness of breath. COMPARISON: November 09, 2018. Right jugular catheter and the right ICD with the lead extending into the right neck remain unchanged in position. No acute infiltrates, effusion or congestion. Cardiac silhouette is mildly enlarged. IMPRESSION: No acute infiltrates, effusion or congestion. at 1808 Reported and signed by: Daron Kraft M.D. CC: Wellington Pace MD; Es Alonso MD Technologist: Briana Valente(R) Trnscrd Date/Time/By: 01/16/2019 (1807) : By: [email or web address] Orig Print D/T: S: 01/16/2019 (1810) PAGE 1 Signed Report [id number] 07:44:00* Test Item Value Reference Range Interpretation Comments GLUBED (test code = GLUBED) 156 mg/dL 74-106 H Performed by certified air reduction equipment operator at [facility] [id number] 12:12:00* Test Item Value Reference Range Interpretation Comments GLUBED (test code = GLUBED) 146 mg/dL 74-106 H Performed by certified air reduction equipment operator at [facility] CBC W/AUTO [id number] 08:29:00* Test Item Value Reference Range Interpretation [...] = MDIFF) NO, ONLY SCAN NEEDED DIFFERENTIAL [id number] 08:29:00* Test Item Value Reference Range Interpretation Comments STAIN ACCEPTABILITY (test code = STN ACCEPTABLE) STAIN ACCEPTABLE POIKILOCYTOSIS (test code = POIK) 1+ TEAR DROP CELLS (test code = TEAR) 1+ PLATELET ESTIMATE (test code = PLTEST) ADEQUATE PLATELET MORPHOLOGY (test code = PLTMORPH) NORMAL [id number] 08:09:00* Test Item Value Reference Range Interpretation Comments GLUBED (test code = GLUBED) 163 mg/dL 74-106 H Performed by certified air reduction equipment operator at [facility] BASIC METABOLIC [id number] 07:39:00* Test Item Value Reference Range Interpretation [...] CA) 8.5 mg/dL 8.5-10.1 N BASIC METABOLIC [id number] 07:36:00* Test Item Value Reference Range Interpretation [...] CA) 8.5 mg/dL 8.5-10.1 N CBC W/AUTO [id number] 07:28:00* Test Item Value Reference Range Interpretation [...] = MDIFF) NO, ONLY SCAN NEEDED DIFFERENTIAL [id number] 07:28:00* Test Item Value Reference Range Interpretation Comments STAIN ACCEPTABILITY (test code = STN ACCEPTABLE) CABOT RINGS (test code = CAB) MORPHOLOGY COMMENT (test code = MOC) PLATELET ESTIMATE (test code = PLTEST) PLATELET MORPHOLOGY (test code = PLTMORPH) CBC W/AUTO [id number] 07:28:00* Test Item Value Reference Range Interpretation [...] = MDIFF) NO, ONLY SCAN NEEDED DIFFERENTIAL [id number] 07:28:00* Test Item Value Reference Range Interpretation Comments STAIN ACCEPTABILITY (test code = STN ACCEPTABLE) CABOT RINGS (test code = CAB) MORPHOLOGY COMMENT (test code = MOC) PLATELET ESTIMATE (test code = PLTEST) PLATELET MORPHOLOGY (test code = PLTMORPH) CBC W/AUTO [id number] 07:28:00* Test Item Value Reference Range Interpretation [...] = MDIFF) NO, ONLY SCAN NEEDED DIFFERENTIAL [id number] 07:28:00* Test Item Value Reference Range Interpretation Comments STAIN ACCEPTABILITY (test code = STN ACCEPTABLE) MORPHOLOGY COMMENT (test code = MOC) PLATELET ESTIMATE (test code = PLTEST) PLATELET MORPHOLOGY (test code = PLTMORPH) CBC W/AUTO [id number] 07:28:00* Test Item Value Reference Range Interpretation [...] = MDIFF) NO, ONLY SCAN NEEDED DIFFERENTIAL [id number] 07:28:00* Test Item Value Reference Range Interpretation Comments STAIN ACCEPTABILITY (test code = STN ACCEPTABLE) CABOT RINGS (test code = CAB) MORPHOLOGY COMMENT (test code = MOC) PLATELET ESTIMATE (test code = PLTEST) PLATELET MORPHOLOGY (test code = PLTMORPH) PROTHROMBIN [id number] 05:55:00* Test Item Value Reference Range Interpretation [...] (2.5-3.5) IS PATIENT ON ANTICOAGULANTS? YLIST ANTICOAGULANTS [id number] 20:42:00* Test Item Value Reference Range Interpretation Comments GLUBED (test code = GLUBED) 137 mg/dL 74-106 H Performed by certified air reduction equipment operator at [facility] [id number] 16:52:00* Test Item Value Reference Range Interpretation Comments GLUBED (test code = GLUBED) 264 mg/dL 74-106 H Performed by certified air reduction equipment operator at [facility] [id number] 13:12:00* Test Item Value Reference Range Interpretation Comments GLUBED (test code = GLUBED) 179 mg/dL 74-106 H Performed by certified air reduction equipment operator at [facility] PROTHROMBIN [id number] 06:01:00* Test Item Value Reference Range Interpretation [...] (test code = MDIFF) NO BASIC METABOLIC [id number] 05:27:00* Test Item Value Reference Range Interpretation [...] CA) 8.6 mg/dL 8.5-10.1 N BASIC METABOLIC [id number] 05:15:00* Test Item Value Reference Range Interpretation [...] CALCIUM (test code = CA) mg/dL 8.5-10.1 [id number] 21:07:00* Test Item Value Reference Range Interpretation Comments GLUBED (test code = GLUBED) 99 mg/dL 74-106 N Performed by certified air reduction equipment operator at [facility] [id number] 21:07:00* Test Item Value Reference Range Interpretation Comments GLUBED (test code = GLUBED) 58 mg/dL 74-106 L Performed by certified air reduction equipment operator at [facility] [id number] 16:57:00* Test Item Value Reference Range Interpretation Comments GLUBED (test code = GLUBED) 76 mg/dL 74-106 N Performed by certified air reduction equipment operator at [facility] [id number] 12:29:00* Test Item Value Reference Range Interpretation Comments GLUBED (test code = GLUBED) 246 mg/dL 74-106 H Performed by certified air reduction equipment operator at [facility] [id number] 08:51:00* Test Item Value Reference Range Interpretation Comments GLUBED (test code = GLUBED) 139 mg/dL 74-106 H Performed by certified air reduction equipment operator at [facility] PROTHROMBIN [id number] 05:02:00* Test Item Value Reference Range Interpretation [...] (2.5-3.5) IS PATIENT ON ANTICOAGULANTS? YLIST ANTICOAGULANTS [id number] 20:26:00* Test Item Value Reference Range Interpretation Comments GLUBED (test code = GLUBED) 148 mg/dL 74-106 H Performed by certified air reduction equipment operator at [facility] [id number] 18:02:00* Test Item Value Reference Range Interpretation Comments GLUBED (test code = GLUBED) 230 mg/dL 74-106 H Performed by certified air reduction equipment operator at [facility] BASIC METABOLIC [id number] 10:12:00* Test Item Value Reference Range Interpretation [...] CA) 8.5 mg/dL 8.5-10.1 N BASIC METABOLIC [id number] 10:05:00* Test Item Value Reference Range Interpretation [...] code = CA) mg/dL 8.5-10.1 CBC W/O [id number] 09:43:00* Test Item Value Reference Range Interpretation [...] = MPV) 9.4 fL 6.7-11.0 N PROTHROMBIN [id number] 09:12:00* Test Item Value Reference Range Interpretation [...] (2.5-3.5) IS PATIENT ON ANTICOAGULANTS? YLIST ANTICOAGULANTS [id number] 08:42:00* Test Item Value Reference Range Interpretation Comments GLUBED (test code = GLUBED) 81 mg/dL 74-106 N Performed by certified air reduction equipment operator at [facility] [id number] 00:33:00* Test Item Value Reference Range Interpretation Comments GLUBED (test code = GLUBED) 128 mg/dL 74-106 H Performed by certified air reduction equipment operator at [facility] [id number] 20:02:00* Test Item Value Reference Range Interpretation Comments GLUBED (test code = GLUBED) 98 mg/dL 74-106 N Performed by certified air reduction equipment operator at [facility] PROTHROMBIN [id number] 19:15:00* Test Item Value Reference Range Interpretation [...] (2.5-3.5) IS PATIENT ON ANTICOAGULANTS? YLIST ANTICOAGULANTS [id number] 18:15:00* Test Item Value Reference Range Interpretation Comments GLUBED (test code = GLUBED) 114 mg/dL 74-106 H Performed by certified air reduction equipment operator at [facility] [id number] 16:48:00* Test Item Value Reference Range Interpretation Comments GLUBED (test code = GLUBED) 47 mg/dL 74-106 LL Performed by certified air reduction equipment operator at [facility] [id number] 11:58:00* Test Item Value Reference Range Interpretation Comments GLUBED (test code = GLUBED) 119 mg/dL 74-106 H Performed by certified air reduction equipment operator at [facility] [id number] 08:16:00* Test Item Value Reference Range Interpretation Comments GLUBED (test code = GLUBED) 148 mg/dL 74-106 H Performed by certified air reduction equipment operator at [facility] AB HEPATITIS B [id number] 03:07:00* Test Item Value Reference Range Interpretation Comments AB HEPATITIS B SURFACE (test code = HBSAB) Reactive () Non Reactive: Inconsistent with immunity, less than 10 mIU/mL Reactive: Consistent with immunity, greater than 9.9 mIU/mLPerformed At: [facility] [id number] Yadiel Castro MD Ph:[phone] [id number] 23:39:00* Test Item Value Reference Range Interpretation Comments GLUBED (test code = GLUBED) 119 mg/dL 74-106 H Performed by certified air reduction equipment operator at [facility] [id number] 23:39:00* Test Item Value Reference Range Interpretation Comments GLUBED (test code = GLUBED) 48 mg/dL 74-106 LL [facility] reduction [facility]~ [id number] 20:10:00* Test Item Value Reference Range Interpretation Comments GLUBED (test code = GLUBED) 78 mg/dL 74-106 N Performed by certified air reduction equipment operator at [facility] [id number] 17:00:00* Test Item Value Reference Range Interpretation Comments GLUBED (test code = GLUBED) 148 mg/dL 74-106 H Performed by certified air reduction equipment operator at [facility] [id number] 14:30:00* Test Item Value Reference Range Interpretation Comments GLUBED (test code = GLUBED) 132 mg/dL 74-106 H Performed by certified air reduction equipment operator at [facility] PROTHROMBIN [id number] 13:26:00* Test Item Value Reference Range Interpretation [...] PATIENT ON ANTICOAGULANTS? YLIST ANTICOAGULANTS COUMADINBASIC METABOLIC [id number] 10:15:00* Test Item Value Reference Range Interpretation [...] NURSE TRYING TO DRAW FROM PTLEG/FOOT NURSE [id number] 29 V.LAB.AL 11/18/18 0830CBC W/AUTO [id number] 09:57:00* Test Item Value Reference Range Interpretation [...] code = NRBC#) 0.00 K/mm3 0.0-0.1 N [id number] 09:09:00* Test Item Value Reference Range Interpretation Comments GLUBED (test code = GLUBED) 184 mg/dL 74-106 H Performed by certified air reduction equipment operator at [facility] [id number] 20:18:00* Test Item Value Reference Range Interpretation Comments GLUBED (test code = GLUBED) 73 mg/dL 74-106 L Performed by certified air reduction equipment operator at [facility] [id number] 16:55:00* Test Item Value Reference Range Interpretation Comments GLUBED (test code = GLUBED) 134 mg/dL 74-106 H Performed by certified air reduction equipment operator at [facility] PROTHROMBIN [id number] 14:48:00* Test Item Value Reference Range Interpretation [...] ANTICOAGULANTS? YLIST ANTICOAGULANTS HEPA RIN COUMADINCBC W/AUTO [id number] 14:26:00* Test Item Value Reference Range Interpretation [...] 137 mg/dL 74-106 H Performed by certified air reduction equipment operator at [facility] [id number] 12:28:00* Test Item Value Reference Range Interpretation Comments GLUBED (test code = GLUBED) 159 mg/dL 74-106 H Performed by certified air reduction equipment operator at [facility] [id number] 09:11:00* Test Item Value Reference Range Interpretation Comments GLUBED (test code = GLUBED) 117 mg/dL 74-106 H Performed by certified air reduction equipment operator at [facility] [id number] 21:03:00* Test Item Value Reference Range Interpretation Comments GLUBED (test code = GLUBED) 72 mg/dL 74-106 L Performed by certified air reduction equipment operator at [facility] [id number] 16:34:00* Test Item Value Reference Range Interpretation Comments GLUBED (test code = GLUBED) 155 mg/dL 74-106 H Performed by certified air reduction equipment operator at [facility] [id number] 10:56:00* Test Item Value Reference Range Interpretation Comments GLUBED (test code = GLUBED) 390 mg/dL 74-106 H Performed by certified air reduction equipment operator at [facility] [id number] 08:56:00* Test Item Value Reference Range Interpretation Comments GLUBED (test code = GLUBED) 328 mg/dL 74-106 H Performed by certified air reduction equipment operator at [facility] [id number] 20:54:00* Test Item Value Reference Range Interpretation Comments GLUBED (test code = GLUBED) 185 mg/dL 74-106 H Performed by certified air reduction equipment operator at [facility] [id number] 15:19:00* Test Item Value Reference Range Interpretation Comments GLUBED (test code = GLUBED) 346 mg/dL 74-106 H Performed by certified air reduction equipment operator at [facility] BASIC METABOLIC [id number] 11:34:00* Test Item Value Reference Range Interpretation Comments SODIUM (test code = NA) 136 mmol/L 136-145 N POTASSIUM (test code = K) 6.3 mmol/L 3.5-5.1 [facility] yoselin called to CANDICE RUSS [id number] by V.LAB.CF2 11/15/18 1133Critical results verified and read back [...] CA) 8.4 mg/dL 8.5-10.1 L CBC W/AUTO [id number] 10:25:00* Test Item Value Reference Range Interpretation [...] DIFF REQUIRED (test code = MDIFF) NO [id number] 08:51:00* Test Item Value Reference Range Interpretation Comments GLUBED (test code = GLUBED) 378 mg/dL 74-106 H Performed by certified air reduction equipment operator at [facility] [id number] 20:28:00* Test Item Value Reference Range Interpretation Comments GLUBED (test code = GLUBED) 257 mg/dL 74-106 H Performed by certified air reduction equipment operator at [facility] [id number] 12:25:00* Test Item Value Reference Range Interpretation Comments GLUBED (test code = GLUBED) 249 mg/dL 74-106 H Performed by certified air reduction equipment operator at [facility] [id number] 09:05:00* Test Item Value Reference Range Interpretation Comments GLUBED (test code = GLUBED) 289 mg/dL 74-106 H Performed by certified air reduction equipment operator at [facility] [id number] 06:41:00* Test Item Value Reference Range Interpretation Comments GLUBED (test code = GLUBED) 211 mg/dL 74-106 H Performed by certified air reduction equipment operator at [facility] COMPREHENSIVE METABOLIC [id number] 06:15:00* Test Item Value Reference Range Interpretation [...] due to change in reagent. COMPREHENSIVE METABOLIC [id number] 06:05:00* Test Item Value Reference Range Interpretation [...] code = ALKP) IUnit/L 45-117 CBC W/AUTO [id number] 05:37:00* Test Item Value Reference Range Interpretation [...] DIFF REQUIRED (test code = MDIFF) NO [id number] 20:58:00* Test Item Value Reference Range Interpretation Comments GLUBED (test code = GLUBED) 220 mg/dL 74-106 H Performed by certified air reduction equipment operator at [facility] [id number] 17:16:00* Test Item Value Reference Range Interpretation Comments GLUBED (test code = GLUBED) 297 mg/dL 74-106 H Performed by certified air reduction equipment operator at [facility] - SP FLUORO GUID CTRL ACC [id number] 12:52:00 Name: MELOARY LAMBERT [facility] : 1935 Age/S: 83 / M [address] [facility] Unit #: [id number] Loc: [place] [address] Phys: Wellington Pace MD Acct: [id number] Dis Date: Status: ADM IN PHONE #: [phone] Exam Date: 11/13/2018 09 FAX #: [phone] Reason: / EXAMS: CPT CODE: [id number] SP FLUORO GUID CTRL ACC DEV 97992 Fluoro Time: 2 DAP (Gy m2): 5.974 [...] CC: Wellington Pace MD Technologist: URIAH MARTÍNEZ ENTERPRISE ACCOUNT EXECUTIVE Trnscb Date/Time: 11/13/2018 (0920) KalebGRW Orig Print D/T: S: 11/13/2018 (4415) PAGE 1 Signed Report [id number] 08:26:00* Test Item Value Reference Range Interpretation Comments GLUBED (test code = GLUBED) 206 mg/dL 74-106 H Performed by certified air reduction equipment operator at [facility] BASIC METABOLIC [id number] 05:25:00* Test Item Value Reference Range Interpretation [...] CA) 8.3 mg/dL 8.5-10.1 L BASIC METABOLIC [id number] 05:21:00* Test Item Value Reference Range Interpretation [...] code = CA) mg/dL 8.5-10.1 CBC W/AUTO [id number] 05:06:00* Test Item Value Reference Range Interpretation [...] code = NRBC#) 0.00 K/mm3 0.0-0.1 N [id number] 21:59:00* Test Item Value Reference Range Interpretation Comments GLUBED (test code = GLUBED) 119 mg/dL 74-106 H Performed by certified air reduction equipment operator at [facility] [id number] 21:59:00* Test Item Value Reference Range Interpretation Comments GLUBED (test code = GLUBED) 79 mg/dL 74-106 N Performed by certified air reduction equipment operator at [facility] [id number] 16:31:00* Test Item Value Reference Range Interpretation Comments GLUBED (test code = GLUBED) 176 mg/dL 74-106 H Performed by certified air reduction equipment operator at [facility] [id number] 12:04:00* Test Item Value Reference Range Interpretation Comments GLUBED (test code = GLUBED) 272 mg/dL 74-106 H Performed by certified air reduction equipment operator at [facility] [id number] 08:16:00* Test Item Value Reference Range Interpretation Comments GLUBED (test code = GLUBED) 115 mg/dL 74-106 H Performed by certified air reduction equipment operator at [facility] [id number] 23:15:00* Test Item Value Reference Range Interpretation Comments GLUBED (test code = GLUBED) 115 mg/dL 74-106 H Performed by certified air reduction equipment operator at [facility] [id number] 21:26:00* Test Item Value Reference Range Interpretation Comments GLUBED (test code = GLUBED) 56 mg/dL 74-106 L Performed by certified air reduction equipment operator at [facility] [id number] 15:57:00* Test Item Value Reference Range Interpretation Comments GLUBED (test code = GLUBED) 212 mg/dL 74-106 H Performed by certified air reduction equipment operator at [facility] [id number] 12:52:00* Test Item Value Reference Range Interpretation Comments GLUBED (test code = GLUBED) 192 mg/dL 74-106 H Performed by certified air reduction equipment operator at [facility] BASIC METABOLIC [id number] 09:11:00* Test Item Value Reference Range Interpretation [...] CALLED DIALYSIS, THEY WILL DRAW V.LAB.CS1 11/11/18 [id number] 08:47:00 * Test Item Value Reference Range Interpretation Comments GLUBED (test code = GLUBED) 218 mg/dL 74-106 H Performed by certified air reduction equipment operator at [facility] CBC W/AUTO [id number] 08:38:00* Test Item Value Reference Range Interpretation [...] (2.5-3.5) IS PATIENT ON ANTICOAGULANTS? NTHROMBOPLASTIN TIME [id number] 08:05:00* Test Item Value Reference Range Interpretation Comments THROMBOPLASTIN TIME PARTIAL (test code = PTT) 32.0 seconds 25.0-36. 5 N IS PATIENT ON ANTICOAGULANTS? [id number] 20:42:00* Test Item Value Reference Range Interpretation Comments GLUBED (test code = GLUBED) 119 mg/dL 74-106 H Performed by certified air reduction equipment operator at [facility] [id number] 17:31:00* Test Item Value Reference Range Interpretation Comments GLUBED (test code = GLUBED) 74 mg/dL 74-106 N Performed by certified air reduction equipment operator at [facility] [id number] 17:31:00* Test Item Value Reference Range Interpretation Comments GLUBED (test code = GLUBED) 63 mg/dL 74-106 L Performed by certified air reduction equipment operator at [facility] [id number] 12:58:00* Test Item Value Reference Range Interpretation Comments GLUBED (test code = GLUBED) 219 mg/dL 74-106 H Performed by certified air reduction equipment operator at [facility] [id number] 08:23:00* Test Item Value Reference Range Interpretation Comments GLUBED (test code = GLUBED) 176 mg/dL 74-106 H Performed by certified air reduction equipment operator at [facility] BASIC METABOLIC [id number] 06:37:00* Test Item Value Reference Range Interpretation [...] CA) 9.0 mg/dL 8.5-10.1 N BASIC METABOLIC [id number] 06:34:00* Test Item Value Reference Range Interpretation [...] code = CA) mg/dL 8.5-10.1 CBC W/AUTO [id number] 06:13:00* Test Item Value Reference Range Interpretation [...] DIFF REQUIRED (test code = MDIFF) NO [id number] 20:43:00* Test Item Value Reference Range Interpretation Comments GLUBED (test code = GLUBED) 282 mg/dL 74-106 H Performed by certified air reduction equipment operator at [facility] [id number] 17:42:00* Test Item Value Reference Range Interpretation Comments GLUBED (test code = GLUBED) 175 mg/dL 74-106 H Performed by certified air reduction equipment operator at [facility] PROTHROMBIN [id number] 15:25:00* Test Item Value Reference Range Interpretation [...] (2.5-3.5) IS PATIENT ON ANTICOAGULANTS? NTHROMBOPLASTIN TIME [id number] 15:25:00* Test Item Value Reference Range Interpretation Comments THROMBOPLASTIN TIME PARTIAL (test code = PTT) 30.7 seconds 25.0-36. 5 N IS PATIENT ON ANTICOAGULANTS? N- [facility] [id number] 13:18:00 Name: MELOARY LAMBERT [facility] : 1935 Age/S: 83 / M [address] Unit #: [id number] Loc: [place] [address] Phys: Maxime Pace MD Acct: [id number] Di s Date: Status: ADM IN PHONE #: Exam Date: 11/09/2018 1213 FAX #: [phone] Reason: / EXAMS: CPT CODE: [id number] [facility] ACCESS 88012 Fluoro Time: DAP (Gy m2): Air Kerma [...] performed under fluoroscopic guidance and a 15 [place]ese pe el-away sheath was inserted. A subcutaneous [...] Signed Rep ort (CONTINUED) Name: ARY ALEJO [facility] : 1935 Age/S: 83 / M [address] Unit #: [id number] Loc: [place] [address] Phys: Wellington Pace MD Acct: [id number] Dis Date: Status: ADM IN PHONE #: [phone] Exam Date: 11/09/20181214 FAX #: [phone] Reason: / EXAMS: CPT CODE: [id number] [facility] ACCESS 00481 Fluoro Time: DAP (Gy m2): Air Kerma (mGy): < Continued> at 1318 Reported and signed by: Primo Boothe M.D. CC: Wellington Pace MD Technologist: URIAH MARTÍNEZ ENTERPRISE ACCOUNT EXECUTIVE Trnscb Date/Time: 11/09/2018 (1318) CristianW Orig Print D/T: S: 11/09/2018 (2325) PAGE 2 Signed Report - SP FLUORO GUID CTRL ACC [id number] 13:18:00 Name: ARY ALEJO [facility] SP : 1935 Age/S: 83 / M [address] [facility] Unit #: [id number] Loc: [place] [address] Phys: Wellington Pace MD Acct: [id number] Dis Date: Status: ADM IN PHONE #: [phone] Exam Date: 11/09/20181214 FAX #: [phone] Reason: / EXAMS: CPT CODE: [id number] SP FLUORO GUID CTRL ACC DEV 13827 Fluoro Time: 36 DAP (Gy m2): 8.400 [...] monitored by a trained registered nurse. Physician vgyp-ij-kzsm sedation time was 13 minutes. After obtaining [...] performed under fluoroscopic guidance and a 15 Guyanese pe el-away sheath was inserted. A subcutaneous [...] Signed Rep ort (CONTINUED) Name: ARY ALEJO [facility] SP : 1935 Age/S: 83 / M [address] [facility] [address] Unit #: [id number] Loc: [place], [place] [address] Phys: Wellington Pace MD Acct: [id number] Dis Date: Status: ADM IN PHONE #: [phone] Exam Date: 11/09/2018 1215 FAX #: [phone] Reason: / EXAMS: CPT CODE: [id number] SP FLUORO GUID CTRL ACC DEV 98187 Fluoro Time: 36 DAP (Gy m2): 8.400 Air Kerma (mGy): 19.76 < Continued> at 1318 Reported and signed by: Primo Boothe M.D. CC: Wellington Pace MD Technologist: URIAH MARTÍNEZ ENTERPRISE ACCOUNT EXECUTIVE Trnscb Date/Time: 11/09/2018 (1318) Maria T Orig Print D/T: S: 11/09/2018 (5715) PAGE 2 Signed Report - XR CHEST 1 [id number] 12:31:00 FAX: Wellington Hercules MD [phone] [place]: St: ADM Name: ARY CASH [facility] : [birth year] Age/S: 83/M [address] [facility] Unit #: [id number] Loc: V.30[address] [place] [address] Phys: Primo Boothe MD Acct: [id number] Dis Date: Status: ADM IN PHONE #: [phone] Exam Date: 11/09/2018 1226 FAX #: [phone] Reason: ESRD; [facility]; EXAMS: CPT CODE: [id number] XR CHEST 1 V 64815 EXAM: Chest x-ray, one view; INFORMATION: End-stage [...] RT(R); HELEN GARZA RT(R) Trnscrd Date/Time/By: 11/09/2018 (7941) : By: KalebGRW Orig Print D/T: S: 11/09/2018 (4906) PAGE 1 Signed Report [id number] 12:04:00* Test Item Value Reference Range Interpretation Comments GLUBED (test code = GLUBED) 353 mg/dL 74-106 H Performed by certified air reduction equipment operator at [facility] AG HEPAT B [id number] 10:13:00* Test Item Value Reference Range Interpretation Comments AG HEPAT B SURF (test code = HBSAG) Nonreactive Index Nonreactive COMPREHENSIVE METABOLIC [id number] 05:29:00* Test Item Value Reference Range Interpretation [...] due to change in reagent. COMPREHENSIVE METABOLIC [id number] 05:16:00* Test Item Value Reference Range Interpretation [...] code = ALKP) IUnit/L 45-117 CBC W/AUTO [id number] 04:53:00* Test Item Value Reference Range Interpretation [...] = MDIFF) NO - XR CHEST 1 [id number] 21:29:00 FAX: Wellington Hercules MD [phone] [place]: B St: ADM FAX: Es Alonso MD [phone] Name: ARY ALEJO [facility] : 1935 Age/S: 83/M [address] [facility] Unit #: [id number] Loc: [place] [address] Phys: Es Alonso MD Acct: [id number] Dis Date: Status: ADM IN PHONE #: [phone] Exam Date: 11/08/20182118 FAX #: [phone] Reason: sob EXAMS: CPT CODE: [id number] XR CHEST 1 V 61755 REASON FOR EXAM: sob EXAM ORDER DATE: 11/08/2018 8:46 PM Ordering M.D.: Es Alonso MD PROCEDURE: - XR CHEST 1 V COMPARISON: FINDINGS: Portable AP frontal view of the chest obtained at 9:06 PM shows patchy airspace opacity of the bases. The heart size is minimally enlarged. Pulmonary vasculatures are unremarkable. IMPRESSION: Atelectasis of the bases with probable small bilateral pleural effusions at 2128 Reported and signed by: Tavares Brar M.D. CC: Wellington Pace MD; Es Park MD Technologist: YELENA ATKINS RT; JAMES Small RT(R) Trnscrd Date/Time/By: 11/08/2018 (2128) : By: SandraL Orig Print D/T: S: 11/08/2018 (2131) PAGE 1 Signed Report COMPREHENSIVE METABOLIC [id number] 19:35:00* Test Item Value Reference Range Interpretation [...] due to change in reagent. COMPREHENSIVE METABOLIC [id number] 19:18:00* Test Item Value Reference Range Interpretation [...] code = ALKP) IUnit/L 45-117 CBC W/AUTO [id number] 18:49:00* Test Item Value Reference Range Interpretation [...] NRBC#) 0.00 K/mm3 0.0-0.1 N CHEST 2 [id number] 22:12:00 [place] [address] Patient Name: ARY ALEJO MR #: [id number] : 1935 Age/Sex: 82/M Req #: [id number] Adm Physician: Ordered by: MICKEY ORNELAS MD Report #: [id number] Location: ER Room/Bed: Procedure: 53 DX/CHEST 2 VIEWS Exam Date: 06/13/18 [...] on 2213 COPY TO: MICKEY ORNELAS MD [id number] 12:07:00* Test Item Value Reference Range Interpretation Comments GLUBED (test code = GLUBED) 188 mg/dL 74-106 H Performed by certified air reduction equipment operator at [facility] [id number] 10:07:00* Test Item Value Reference Range Interpretation Comments POTASSIUM (test code = K) 5.4 mmol/L 3.5-5.1 H S pecimen 1+ Hemolysed.Some results MAY NOT be accurate due to hemolysis. BASIC METABOLIC [id number] 16:44:00* Test Item Value Reference Range Interpretation [...] CA) 9.4 mg/dL 8.5-10.1 N BASIC METABOLIC [id number] 16:41:00* Test Item Value Reference Range Interpretation [...] code = CA) mg/dL 8.5-10.1 CBC W/AUTO [id number] 16:22:00* Test Item Value Reference Range Interpretation [...] = MDIFF) NO - Intro cath dialysis [id number] 09:00:00 Name: ARY ALEJO [facility] : 1935 Age/S: 82 / M [address] [facility]: [id number] Loc: [place] [address] Phys: Tavares Brar MD Acct: [id number] Dis Date: Status: [facility] PHONE #: [phone] Exam Date: 04/23/2018 8594 FAX #: [phone] Reason: Report Has Been Amended EXAMS: CPT CODE: [id number] Intro cath dialysis circuit 54798 Fluoro Time: 18 DAP (Gy m2): 89638 Air Kerma (mGy): 162.2 Addendum - 04/24/2018 SIGNED 05/15/2018 Exam [id number] was added to this report by Ambreen Henry on 04/24/2018 (09) Exam [id number] SP/ANGEXUNILT was removed from this report by Ambreen Henry on 04/24/2018 (09) The original report was signed prior to the changes involving the above exam(s). The current status of the removed exam(s) may be viewed elsewhere in the system I, the undersigned physician, have reviewed this report for accuracy and verify that this is correct. at 1802 Reported and signed by: Tavares Brar M.D. Created Date/Time/User: 04/24/2018 (899) VELIZABETHPDC Report REASON FOR EXAM:Immature left upper arm [...] AV fistulogram was performed through the 5 Guyanese micropun cture sheath. There is no evidence of central venous stenosis. The main ou tflow of the AV fistula is the cephalic vein which is patent. There is no evidence of venous outflow obstruction. PAGE 1 Signed Report (CONTINUED) Name: ARY ALEJO [facility] : 1935 Age/S: 82 / M [address] [facility] Unit #: [id number] Loc: Eric prasad, [place] [address] Phys: Tavares Brar MD Acct: [id number] Dis Date: Status: DEP S DC PHONE #: [phone] Exam Date: 04/23/19 19 1330 FAX #: [phone] Reason: Report Has Been Amended EXAMS: CPT CODE: [id number] Intro cath dialysis circuit 17177 Fluoro Time: 1 8 DAP (Gy m2): 40411 Air Kerma (mGy): 162.2 <Continued> Under direct [...] MD Technologist: Sanjay Aguilar Trnscb Date/Time: 04/23/2018 (6187) Santino POLANCO/ELIU.PDC Orig Print D/T: S: 04/23/2018 (1126) PAGE 2 Signed Report - SP ANGIO EXT UNI [id number] 15:57:00 Name: ARY ALEJO [facility]. SP : 1935 Age/S: 82 / M [address] Unit #: [id number] Loc: [place] [address] Phys: Tavares Brar MD Acct: [id number] Dis Date: Status: [facility] PHONE #: [phone] Exam Date: 04/23/2018 1330 FAX #: [phone] Reason: EXAMS: CPT CODE: [id number] [place] [address] Fluoro Time: 18 DAP (Gy m2): 64397 Air Kerma (mGy): 162.2 REASON FOR EXAM:Immature [...] AV fistulogram was performed through the 5 Guyanese micropuncture sheath. There is no evidence of [...] 1 Signed Report (CONTINUED) Name: ARY ALEJO [facility]. SP : 1935 Age/S: 82 / M [address] Unit #: [id number] Loc: [place] [address] Phys: Tavares Brar MD Acct: [id number] Dis Date: Status: [facility] [place] PHONE #: [phone] Exam Date: 04/23/2018 1330 FAX #: [phone] Reason: EXAMS: CPT CODE: [id number] [address] Fluoro Time: 18 DAP (Gy m2): 35158 Air Kerma (mGy): 162.2 <Continued> at 1557 Reported and signed by: Tavares Brar M.D. CC: Tavares Brar MD; Wellington Pace MD Technologist: Sanjay Aguilar [facility] Date/Time: 04/23/2018 (1557) t.MAGDYR.VTL Orig Print D/T: S: 04/23/2018 (1600) PAGE 2 Signed Report - [facility] [id number] 15:57:00 Name: ARY ALEJO [facility]. SP : 1935 Age/S: 82 / M [address] Unit #: [id number] Loc: [place] [address] Phys: Tavares Brar MD Acct: [id number] Dis Date: Status: [facility] [place] [facility] PHONE #: [phone] Exam Date: 04/23/2018 1330 FAX #: [phone] Reason: EXAMS: CPT CODE: [id number] [facility] ACCESS 68902 Fluoro Time: 18 DAP (Gy m2): 06014 Air Kerma (mGy): 162.2 REASON FOR EXAM:Immature [...] AV fistulogram was performed through the 5 Guyanese micropuncture sheath. There is no evidence of [...] 1 Signed Report (CONTINUED) Name: ARY ALEJO [facility] SP : 1935 Age/S: 82 / M [address] [facility] Unit #: [id number] Loc: [place] [address] Phys: Tavares Brar MD Acct: [id number] Dis Date: Status: [facility] PHONE #: [phone] Exam Date: 04/23/2018 1330 FAX #: [phone] Reason: EXAMS: CPT CODE: [id number] [facility] G[facility]ANCE [facility] ACCESS 54874 Fluoro Time: 18 DAP (Gy m2): 43495 Air Kerma (mGy): 162.2 <Continued> at 1557 Reported and signed by: Tavares Brar M.D. CC: Tavares Brar MD; Wellington Pace MD Technologist: Sanjay Aguilar Trnmtb Date/Time: 04/23/2018 (0804) KalebVTL Orig Print D/T: S: 04/23/2018 (6717) PAGE 2 Signed Report BASIC METABOLIC [id number] 10:43:00* Test Item Value Reference Range Interpretation [...] = CA) 9.0 mg/dL 8.5-10.1 N PROTHROMBIN [id number] 10:30:00* Test Item Value Reference Range Interpretation [...] (2.5-3.5) IS PATIENT ON ANTICOAGULANTS? NTHROMBOPLASTIN TIME [id number] 10:30:00* Test Item Value Reference Range Interpretation Comments THROMBOPLASTIN TIME PARTIAL (test code = PTT) 28.2 seconds 25.0-36. 5 N IS PATIENT ON ANTICOAGULANTS? NCBC W/AUTO [id number] 10:25:00* Test Item Value Reference Range Interpretation [...] code = NRBC#) 0.00 K/mm3 0.0-0.1 N [id number] 10:18:00* Test Item Value Reference Range Interpretation Comments GLUBED (test code = GLUBED) 201 mg/dL 74-106 H Performed by certified air reduction equipment operator at [facility] BASIC METABOLIC [id number] 17:51:00* Test Item Value Reference Range Interpretation [...] CA) 9.5 mg/dL 8.5-10.1 N BASIC METABOLIC [id number] 17:48:00* Test Item Value Reference Range Interpretation [...] (test code = CA) mg/dL 8.5-10.1 PROTHROMBIN [id number] 17:30:00* Test Item Value Reference Range Interpretation [...] Mechanical prosthetic heart valves (2.5-3.5) THROMBOPLASTIN TIME [id number] 17:30:00* Test Item Value Reference Range Interpretation Comments THROMBOPLASTIN TIME PARTIAL (test code = PTT) 28.9 seconds 25.0-36. 5 N CBC W/AUTO [id number] 17:23:00* Test Item Value Reference Range Interpretation [...] = MDIFF) NO SPECIAL PROCEDURE IN CATH [id number] 09:07:00 [place] [address] Patient Name: ARY ALEJO MR #: [id number] : 1935 Age/Sex: 82/M Req #: [id number] Adm Physician: WELLINGTON PACE MD Ordered by: MARY WELLS, FE WELLS Report #: [id number] Location: MED/SURG3 Room/Bed: [facility] Procedure: [id number] IR/ SPECIAL PROCEDURE IN CORRECTION WARDEN Exam Date: Exam Time: REPORT STATUS: Signed [...] and with the help of a 5 Guyanese Kumpe catheter the wire was m anipulated [...] the tract was serially dilated. Finally, a 16.5-Guyanese peel -away sheath was advanced over the wire under fluoroscopic guidance. The wire and inner dilator of the sheath were removed and 16 Guyanese Bard 23 cm long sp lit tip [...] of a tunneled dual-lum en hemodialysis catheter (16-Guyanese, 23-cm tip-cuff length Bard split tip HD c atheter). 2. The line is okay for immediate use. Signed by: Dr. Michael ervin DO on 01/01/2018 9:16 AM Dictated By: MICHAEL COELHO DO Electronical ly Signed By: MICHAEL COELHO DO on 01/01/18915 Transcribed By: SALVADOR on 05/20 COPY TO: FE HERNANDEZ [id number] 11:35:00 [place] [address] Patient Name: ARY ALEJO MR #: [id number] : 0 1935 Age/Sex: 82/M Req #: [id number] Adm Physician: WELLINGTON PACE MD Ordered by: MARY WELLS, FE WELLS Report #: [id number] Locatio n: IMCU Room/Bed: [place] [address] Procedure: [id number] US/ US GALLBLADDER Exam Date: Exam Time: REPORT STATUS: Signed PROCEDURE: GALLBLADDER ULTRASOUND COMPARISON: Report from CT abdomen 08/07/16, images not available for review. INDICATIONS: NAUSEA/VOMITTING FINDINGS: Study is limited by the patient's large body habitus. Multiple sagittal and axial images were obtained of the [facility] upper quadrant of the abdomen. The liver [...] at 11:35 Dictated By: ANN DUEÑAS MD [facility] Signed By: ANN DUEÑAS MD on 12/27/17 1135 Transcribed By: LAURITA on 1135 COPY TO: FE HERNANDEZ ABDOMEN-1VIEW (KUB)2017-12-27 11:15:00 [place] [address] Patient Name: ARY ALEJO MR #: [id number] : 1935 Age/Sex: 82/M Req #: [id number] Adm Physician: WELLINGTON PACE MD Ordered by: FE HERNANDEZ MD, MD Report #: [id number] Location: [facility] Room/Bed: IMCU 187-1 Procedure: [id number] DX/ ABDOMEN-1VIEW (KUB) Exam Date: 12/27/17 Exam [...] 12/27/17 1115 COPY TO: FE HERNANDEZ BA. [id number] 09:17:00 [place] [address] Patient Name: ARY ALEJO MR #: [id number] : 1935 Age/Sex: 82/M Req #: [id number] Adm Physician: WELLINGTON PACE MD Ordered by: TRICE HURTADO MD Report #: [id number] Location: [facility] Room/Bed: [place] [address] Procedure: [id number] DX/MOD IFIED BA. SWALLOW Exam Date: 12/24/17 Exam Time: 144 6 REPORT STATUS: Signed Exam: Modified barium swallow History: Eric david medical history of recurrent aspiration pneumonia. Comparison: [...] 12/25/17920 COPY TO: TRICE STEPHEN MD IR [id number] 13:00:00 [place] [address] Patient Name: ARY ALEJO MR #: [id number] : 1935 Age/Sex: 82/M Req #: [id number] [facility] Physician: WELLINGTON PACE MD Ordered by: MARY WELLS, FE WELLS Report #: [id number] Location: MED/SURG3 Room/Bed: [facility] Procedure: [id number] DX/ IR CONSULT Exam Date: Exam Time: REPORT STAT US: Signed Date and Time: 12/24/2017 Procedure: Right internal jugular te mporary hemodialysis catheter placement roll or tape edge machine operator: Dr. Khalida Villalta e-operative diagnosis: Hyperkalemia, acute kidney injury Post-operative diagno sis: Hyperkalemia, acute kidney injury Conscious Sedation: None The patie nt's heart rate and pulse oximetry were continuously monitored by the [facility] serena se. Blood pressure was monitored at 5 minute intervals. Additional Medicat ions: Lidocaine 1% for local anesthesia Fluoroscopy time: 0.3 minutes Front al Air Kerma: 11.70 mGy Contrast used: None Estimated blood loss: Minimal Blood products administered: None Specimens: None Implants: 13 Guyanese 15 cm triple-lumen hi flow central venous catheter Complications: No immediate Con dition at completion: Stable Disposition: Return to [facility] DISCUSSION: Informed consent was obtained and [...] he tract was dilated. Then a 13 Guyanese, 15 cmtriple-lumen central venous marely ter was [...] placement of a nontunneled hemodialysis catheter (13 Guyanese, 15 cm triple-lumen Trialysis) by a right internal jugular approach under sono graphic and fluoroscopic guidance. Signed by: Dr. Uriah Milner M.D. on 12/24/2017 1:04 PM Dictated By: URIAH MILNER MD 1141 Transcribed By: SALVADOR on 12/28/17 1141 COPY TO: FE HERNANDEZ GUIDANCE FOR [id number] 13:00:00 [place] [address] Patient Name: ARY ALEJO MR #: [id number] : 0 1935 Age/Sex: 82/M Req #: [id number] Adm Physician: WELLINGTON PACE MD Ordered by: FE HERNANDEZ MD, MD Report #: [id number] Locatio n: MED/SURG3 Room/Bed: [facility] Procedure: [id number] / GUIDANCE FOR PROCEDURE Exam Date: 12/24/17 Exam T esha: 1135 REPORT STATUS: Signed Date and Time: 12/24/2017 Procedure : Right internal jugular temporary hemodialysis catheter placement roll or tape edge machine operator: Dr. Milner Pre-operative diagnosis: Hyperkalemia, acute [...] products administered: None Specimens: None Implants: 13 Guyanese 15 cm triple-lumen hi flow central venous catheter Compli cations: No immediate Condition at completion: Stable Disposition: Return to [facility] DISCUSSION: Informed consent was obtained and [...] access the right internal jugular vein. A Mayteche nt sonographic image was stored in the medical record. A 0.0 3 5-in. wire was advanced centrally into the IVC under fluoroscopic guidance. The needle was removed over the wire and the tract was dilated. Then a 13 Guyanese, 15 cmtriple -lumen central venous catheter was [...] of a nontunneled hemodi alysis catheter (13 Guyanese, 15 cm triple-lumen Trialysis) by a right internal jugular approach under sonographic and fluoroscopic guidance. Signed by: Dr. Uriah Milner M.D. on 12/24/2017 1:04 PM Dictated By: URIAH Shahid 1141 Transcribed By: SALVADOR on 12/28/17 1141 COPY TO: FE HERNANDEZ NON-TUNNELLED CVC CATH [id number] 13:00:00 [place] [address] Patient Name: ARY ALEJO MR #: [id number] : 1935 Age/Sex: 82/M Req #: [id number] Adm Physician: WELLINGTON PACE MD Ordered by: FE HERNANDEZ MD, MD Report #: [id number] Location: MED/SURG3 Room/Bed: [facility] Procedure: [id number] IR/ NON-TUNNELLED CVC CATH PLACMNT Exam Date: 12/24/17 E xam Time: 1100 REPORT STATUS: Signed Date and Time: 12/24/2017 Proc edure: Right internal jugular temporary hemodialysis catheter placement Kim syed air reduction equipment operator: Dr. Milner Pre-operative diagnosis: Hyperkalemia, acute [...] administered: None Specimens: N one Implants: 13 Guyanese 15 cm triple-lumen hi flow central venous [...] the tract was dilated. Then a 13 Guyanese, 15 cmt riple-lumen central venous catheter was [...] of a nontunneled h emodialysis catheter (13 Guyanese, 15 cm triple-lumen Trialysis) by a right inte rnal jugular approach under sonographic and fluoroscopic guidance. Signed by: Dr. Uriah Milner M.D. on 12/24/2017 1:04 PM Dictated By: URIAH CHENG MD 1141 Transcribed By: SALVADOR on 12/28/17 1141 COPY TO: FE HERNANDEZ CHEST SINGLE (PORTABLE)2017-12-22 06:29:00 [place] [address] Patient Name: ARY ALEJO MR #: [id number] : 1935 Age/Sex: 82/M Req #: [id number] Adm Physician: WELLINGTON PACE MD Ordered by: BURT FABIAN NP Report #: [id number] Location: [facility] Room/Bed: [place] [address] Procedure: [id number] DX/C HEST SINGLE (PORTABLE) Exam Date: 12/22/17 Exam Time : 0555 REPORT STATUS: Signed CHEST SINGLE (PORTABLE), 12/22/2017 7:00 AM Technique: CHEST SINGLE (PORTABLE) Comparison: 12/21/2017 Clinical hist ory: Shortness of breath Findings: See Impression Impression: Yonatani sis by body habitus, portable technique. 1. [...] BURT FABIAN NP CHEST SINGLE (PORTABLE)2017-12-21 16:29:00 [place] [address] Patient Name: ARY ALEJO MR #: [id number] : 1935 Age/Sex: 82/M Req #: [id number] Adm Physician: Ordered by: BURT FABIAN NP Report #: [id number] Location: ER Room/Bed: Procedure: [id number] DX/CHEST SINGLE (PORTABLE) Exa m Date: 12/21/17 Exam Time: 1620 REPORT [...] PM Dictated By: RAMAKRISHNA HAYS MD, MD 33 Transcribed By: SALVADOR on 12/21/171633 COPY TO: BURT FABIAN NP ABDOMEN- 1VIEW (KUB)2017-10-31 18:13:00 [place] [address] Patient Name: ARY ALEJO MR #: [id number] : 1935 Age/Sex: 82/M Req #: [id number] Adm Physician: Ordered by: DESHAUN RASCON MD Report #: [id number] Location: [facility] Room/Bed: Procedure: [id number] DX/ABDOMEN-1VIEW (KUB) Exam Date: 10/31/17 Exam Time: [...] No definite evidence of nephrolithiasis. Dictated by: Ronni Lara M.D. on 10/31/2017 at 18:13 Electronically approved by: Ronni farrell M.D. on 10/31/2017 at 18:13 Dictated By: RONNI Shahid 12 Transcribed By: LAURITA on 10/31/171812 COPY TO: DESHAUN RASCON MD BA. [id number] 18:00:00 [place] [address] Patient Name: ARY ALEJO MR #: [id number] : 1935 Age/Sex: 82/M Req #: [id number] Adm Physician: Ordered by: WELLINGTON PACE MD Report #: [id number] Location: DX Room/Bed: Procedure: [id number] DX/AKHIL BA. SWALLOW Exam Da te: 09/05/17 Exam [...] 800 COPY TO: WELLINGTON PACE MD TISSUE [id number] 15:53:00 Surgical Pathology Report Case: [id number] Authorizing Provider: Radha Garcias MD Collected: 08/10/2017 1144 Ordering Location: [facility] Received: 08/10/2017 1237 SER VICES Patholog ist: Gurvinder Zapata MD Specimen: Hardware, implantable pulse generator PAYLOADER OPERATOR, CHEST, REMOVAL: - PAYLOADER OPERATOR (G ROSS DIAGNOSIS)[place]/DB/pl Signing Pathologist Direct Phone Line: [phone] 09388Esdaozxhu' s disease, end of battery life of intrathecal infusion pumpImplantable pulse gen eratorReceived fresh labeled "hardware", description "implantable pulse generato r" is a 6.5 x 5.5 x 2.0 cm metallic medical record administrator. The specimen is for gross id entification only. DB/plPOCT-GLUCOSE [id number] 12:06:00* Test Item Value Reference Range Interpretation Comments POC-GLUCOSE METER (BEAKER) (test code = 1538) 169 mg/dL 70-110 H TESTED AT [facility] [address] [facility] [address] BUN AND [id number] 08:56:00* Test Item Value Reference Range Interpretation Comments BLOOD UREA NITROGEN (BEAKER) (test code = 354) 59 mg/dL 7-21 H CREATININE (BEAKER) (test code = 358) 2.19 mg/dL 0.57-1.25 H EGFR (BEAKER) (test code = 1092) 29 mL/min/1.73 sq m ESTIMATED GFR IS NOT ACCURATE CREATININE CLEARANCE IN PREDICTING GLOMERULAR FILTRATION RATE. ESTIMATED GFR IS NOT APPLICABLE FOR DIALYSIS PATIENTS. POCT-GLUCOSE [id number] 08:06:00* Test Item Value Reference Range Interpretation Comments POC-GLUCOSE METER (BEAKER) (test code = 1538) 130 mg/dL 70-110 H TESTED AT [place] [id number] [facility] [address] RAD, CHEST, 2 [id number] 17:03:00Reason for exam:->pre op testingFINAL REPORT Chest [...] MDReport Verified Date/Time: 07/23/2017 17:03:06 Reading Location: [address] Radiology Reading Room C METABOLIC [id number] 16:44:00* Test Item Value Reference Range Interpretation [...] FOR DIALYSIS PATIENTS. URINALYSIS W/ REFLEX URINE [id number] 16:41:00* Test Item Value Reference Range Interpretation [...] Rare SOURCE(BEAKER) (test code = 2795) PROTHROMBIN TIME/[id number] 16:40:00* Test Item Value Reference Range Interpretation Comments PROTIME (BEAKER) (test code = 759) 14.2 seconds 11.7-14.7 INR (BEAKER) (test code = 370) 1.1 <=5.9 RECOMMENDED COUMADIN/WARFARIN INR THERAPY RANGESSTANDARD DOSE: 2.0 - 3.0 Inclu anamaria: PROPHYLAXIS for venous thrombosis, systemic embolization; TREATMENT for veun ous thrombosis and/or pulmonary embolus.HIGH RISK: Target INR is 2.5-3.5 for pat ients with mechanical heart valves.[id number] 16:40:00* Test Item Value Reference Range Interpretation Comments PARTIAL THROMBOPLASTIN TIME (BEAKER) (test code = 760) 29.0 seconds 22.5-36.0 CBC W/PLT COUNT & AUTO [id number] 16:27:00* Test Item Value Reference Range Interpretation [...] 2801) 1 % 0-1 MODIFIED BA. SWALLOW [facility] [address] [place] [address] Patient Name: ARY ALEJO MR #: [id number] : 1935 Age/Sex: 82/M Req #: [id number] Adm Physician: Ordered by: AVILA HAMILTON MD Report #: [id number] Location: DX Room/Bed: Procedure: [id number] DX/MODIFIED BA. SWALLOW Exam Date: 07/31/17 Exam [...] 08/01/17 1412 COPY TO: AVILA HAMILTON MD MODIFIED BA. SWALLOW [address] [address] Patient Name: ARY ALEJO MR #: [id number] : 1935 Age/Sex: 81/M Req #: [id number] Adm Physician: Ordered by: AVILA HAMILTON MD Report #: [id number] Location: DX Room/Bed: Procedure: [id number] DX/MODIFIED BA. SWALLOW Exam Date: 06/13/17 Exam [...] TO: AVILA HAMILTON MD RENAL RETROPERITONEAL COMP [place] [address] Patient Name: ARY ALEJO MR #: [id number] : 1935 Age/Sex: 81/M Req #: [id number] Adm Physician: Ordered by: DESHAUN RASCON MD Report #: [id number] Location: US Room/Bed: Procedure: [id number] US/US RENAL RETROPERITONEAL CO MP Exam Date: [...] 04/06/17 1418 COPY TO: DESHAUN RASCON MD [facility] [place] [address] Patient Name: ARY ALEJO MR #: [id number] : 1935 Age/Sex: 81/M Req #: [id number] Adm Physician: Ordered by: DESHAUN RASCON MD Report #: [id number] Location: [facility] Room/Bed: Procedure: [id number] DX/ABDOMEN-1VIEW (KUB) Exam Date: 01/12/17 Exam Time: 1500 REPORT STATUS: S igned PROCEDURE: X-RAY ABDOMEN - KUB COMPARISON: Patients Medical enter, CT, CT ABDOMEN/PELVIS WO, 07/29/2016, 14:11. Patients [facility], DX, ABDOMEN-1VIEW (KUB), 05/30/2016, 12:06. INDICATIONS: CALCULUS [...]
--- NOTE | 2019-08-14 13:14 | NUR ---
Wounds: Sacral wound Stage 2-allevyn applied L foot 2nd,3rd,4th,5th toes necrotic and L lateral side and bottom of foot. R 2nd and 3rd toe. Stage 3 to R heel allevyn applied. R hand 4th digit necrotic.
--- NOTE | 2019-08-14 14:00 | Diagnostic Imaging Report ---
EXAMINATION: HAND 3+ VIEWS RIGHT INDICATION: Necrosis fourth digit COMPARISON: None FINDINGS: No acute fracture or dislocation. Alignment is anatomic. There is soft tissue atrophy and subcutaneous emphysema at the distal fourth digit beginning at the level of the mid portion of the fourth middle phalanx. No specific radiographic evidence of underlying osteomyelitis. Diffuse atherosclerotic arterial calcifications. Severe degenerative changes of the first CMC joint with wyvq-xi-aflw contact, osteophyte formation, and subchondral cystic changes. IMPRESSION: Soft tissue atrophy and subcutaneous emphysema of the distal fourth digit consistent with clinical diagnosis of soft tissue necrosis. No specific radiographic evidence of underlying osteomyelitis. No acute osseous injury. Severe first CMC joint degenerative changes. Signed by: Ryan Philip MD on 08/14/2019 1:56 PM
--- NOTE | 2019-08-14 14:05 | Diagnostic Imaging Report ---
EXAMINATION: FOOT TWO VIEWS BILATERAL INDICATION: Toe necrosis COMPARISON: None FINDINGS: Right foot: Soft tissue ulceration at the distal second and third toes. Overlying gauze material tears fine bony detail. No definite underlying acute osseous injury or specific radiographic evidence of osteomyelitis. Metallic linear foreign body in the plantar soft tissues between the bases of the first and second proximal phalanx. Prominent degenerative changes of the midfoot. Diffuse atherosclerotic arterial calcifications. Bony proliferative changes of the calcaneus. Left foot: Soft tissue irregularity involving the distal aspects of the second through fifth toes. Overlying gauze material tears fine bony detail. No definite underlying acute osseous injury or specific radiographic evidence of osteomyelitis. Prominent degenerative changes of the midfoot. Bony changes of the calcaneus. Internal fixation hardware of the distal fibula. Atherosclerotic arterial calcifications. IMPRESSION: Soft tissue ulceration of the toes on both feet as above. Overlying gauze material obscures fine bony detail, however there is no definite evidence of underlying acute osseous injury or specific radiographic findings of osteomyelitis. Metallic linear foreign body (possibly a needle) in the first interspace plantar soft tissues on the right. Bilateral degenerative changes as above. Signed by: Ryan Philip MD on 08/14/2019 2:02 PM
[2019-08-14 16:37] LABS: ANISOCYTOSIS SLIG; HYPOCHROMASIA MODERATE; PLATELET ESTIMATE ADEQUATE; PLATELET MORPHOLOGY COMMENT NORMAL; POIKILOCYTOSIS SLIGHT; RBC MORPHOLOGY COMMENT NORMAL
--- NOTE | 2019-08-14 16:39 | NUR ---
Pt currently recieving dialysis
--- NOTE | 2019-08-14 18:45 | Progress Note ---
DATE: 08/14/2019 Dialysis Note SUBJECTIVE: The patient is seen in the emergency room, currently on dialysis. Denies shortness of breath, nausea, or vomiting. Has fairly gangrenous feet. Both are dressed. The dressing has been changed in the emergency room. He also has a dry gangrenous right ring finger. He currently denies shortness of breath or nausea. Has a white count of 13 and hemoglobin 9.3. Potassium 4.3. OBJECTIVE: VITAL SIGNS: Blood pressure 147/53, pulse is 77, and afebrile. HEAD AND NECK: Cornea clear. Ora mucosa moist. LUNGS: Bibasilar rales. HEART: S1 and S2 audible. ABDOMEN: Soft, nontender, and obese abdomen. Flank is full. EXTREMITIES: Lower extremity, 1+ edema. IMPRESSION AND PLAN: End-stage renal disease, edema, state fluid overload, severe peripheral vascular disease, gangrene, both feet. May need below-knee amputation bilateral. I will discuss with Dr. Pace. Currently on dialysis. Sodium 140, potassium 3, bicarb 35, and calcium 2.5. Blood flow 400, dialysate 800, UF as tolerated. Cyndee Wagoner MD SAK/MODL /[id number]
--- NOTE | 2019-08-14 18:51 | Consultation ---
DATE OF CONSULTATION: 08/14/2019 HISTORY OF PRESENT ILLNESS: The patient is seen in the emergency room. An 84-year-old gentleman, who presented with ulceration and worsening gangrene bilateral feet. actually showed me the pictures. Right now, the old dressing has been removed and a fresh dressing has been placed. He is scheduled for dialysis today. He denies any shortness of breath or nausea. Appears to be in good spirits despite the fact that he has fairly horrible-looking feet. He also has dry gangrene of his right ring finger, which has worsened. He otherwise denies shortness of breath, orthopnea, or dyspnea. by bedside. PAST MEDICAL HISTORY: History of right heel abscess, cellulitis, prior history of pneumonia, end-stage renal disease, diabetes, diabetic kidney disease, history of AV fistula placement by Dr. Melvin, obstructive sleep apnea, and recurrent aspiration pneumonia. ALLERGIES: CEFTRIAXONE. HOME MEDICATIONS: Allopurinol, atenolol, calcium acetate with meals, gabapentin, insulin, levothyroxine, pantoprazole, Flomax 0.4 mg at bedtime, and warfarin. For dose schedule, please see MAR. SOCIAL HISTORY: He is , very supportive . FAMILY HISTORY: Significant for diabetes. PHYSICAL EXAMINATION: GENERAL: Awake, alert, lying supine, in no apparent distress. He is oriented x3. VITAL SIGNS: Blood pressure is 130/46, pulse rate 77, afebrile, respiratory rate 15, and oxygen saturation 96% on room air. HEAD AND NECK: Cornea clear. Oral mucosa moist. LUNGS: Decreased air entry at bases. Scattered rales. HEART: S1 and S2 audible. ABDOMEN: Soft and nontender. No apparent visceromegaly. EXTREMITIES: Lower extremity chronic skin changes, edema 1 to 2+ bilateral with dressing noted both feet. X-ray of the foot noted, has metallic linear foreign body, possibly a needle in the 1st interspace of plantar soft tissue on the right. Soft tissue ulceration of the toes, both feet overlying gauze material obscures fine bony details, however, there is no definite evidence of underlying acute osseous injury or specific radiographic findings of osteomyelitis. The photographs, which the patient's showed me shows evidence of gangrene of both feet. Has a gauze packing on the lateral malleolus. Has severe peripheral vascular disease, nonhealing wounds and ulcers and now gangrene. Plan on hemodialysis, renal diet, fluid restriction. I will discuss with Dr. Dima Pace. He may need BKA. Again, we will defer to Podiatry and Infectious Disease. Please see orders. MD DAVID Sánchez/FRANCISCOL /[id number]
[2019-08-14] MEDS: MORPHINE SULFATE 2 MG/ML SYR 1ML IV PRN (22:25)
[2019-08-14 22:38] LABS: CLARITY,URINE CLOUDY (CLEAR); COLOR,URINE YELLOW (YELLOW); LEUKOCYTE ESTERASE ,URINE 1+ (NEGATIVE)
[2019-08-14 22:39] LABS: BILIRUBIN,URINE NEGATIVE (NEGATIVE); KETONES,URINE NEGATIVE (NEGATIVE); NITRITE,URINE POSITIVE (NEGATIVE); PROTEIN,URINE DIPSTICK >=300 (NEGATIVE); URINE UROBILINOGEN 0.2 mg/dL (0.2 - 1)
[2019-08-14 23:44] VITALS: BP 122/46
[2019-08-14 23:55] LABS: BACTERIA,URINE MANY /HPF; EPITHELIAL CELLS,URINE FEW /LPF; RBC,URINE 21-50 /HPF (0-5); RENAL EPITHELIAL CELLS,URINE FEW; WBC,URINE (MAN) >50 /HPF (0-5)
[2019-08-15] VITALS (8 sets, daily range): BP systolic 97–137; BP diastolic 44–62
[2019-08-15] MEDS: MORPHINE SULFATE 2 MG/ML SYR 1ML IV PRN ×2 (02:05→21:44)
[2019-08-15] MEDS ORDERED: DEXTROSE 50% SYRINGE 50 ML IV PRN (09:15)
--- NOTE | 2019-08-15 09:30 | NUR ---
Pt. expressed no spiritual or emotional concerns. Pt's at bedside. Field Recruiter provided hospitality and information on how to reach alteration inspector, if needed. No need to follow at this time. MILLICENT BENSON Field Recruiter Spiritual Care Department O: [phone]
[2019-08-15] MEDS: PIPER-TAZ 3.375 GM 50 ML IV SCH ×2 (09:53→21:47)
[2019-08-15] MEDS: CALCIUM ACETATE 667 MG GELCAP PO SCH ×2 (11:59→16:59)
[2019-08-15] MEDS: INSULIN REGULAR, HUMAN 100 UNIT/1 ML 3ML VIAL SQ SCH ×3 (12:03→21:37)
[2019-08-15] MEDS ORDERED: VANCOMYCIN 1GM/NS 250 ML 250 ML IV SCH (13:00)
[2019-08-15] MEDS ORDERED: POVIDONE IODINE 10% 120 ML BTL EXT ONE (13:15)
--- NOTE | 2019-08-15 16:34 | NUR ---
consult [id number] b feet ulcers pvd gangrene in the feet r worse
--- NOTE | 2019-08-15 17:54 | NUR ---
WOUND CARE INITIAL CONSULT FOR 84 YO MALE WITH HX OF PRESENT ILLNESS OF SEVERE SEPSYS , DIALYSIS, DIABETES. ARSEN 15 ON MODERATE PUP STATUS AND INTERVENTIONS SURFACE: ALTERNATING PRESSURE MATTRESS. LABS: WBC- 13.16 HGB- 9.13 GLUCOSE 158 ALBUMIN 2.5 MEDS: VANCOMYCIN HCL AND PIPERACILLIN SOD/TAZOBACTAM. SEE MAR FOR DOSE. IMAGING: HAND X-RAY IMPRESSION SOFT TISSUE ATROPHY AND SUBCUTANEOUS EMPHYSEMA OF THE DISTAL AND FOURTH DIGIT AND CONSISTENT WITH CLINICAL DIAGNOSIS OF SOFT TISSUE NECROSIS. NO SPECIFIC RADIOGRAPHIC EVIDENCE OF UNDERLYING OSTEOMYELITIS. CHEST XRAY IMPRESSION NO FOCAL PNEUMONIA OR PULMONARY EDEMA. FOOT X-RAY: NO DEFINITE EVIDENCE OF UNDERLYING ACUTE OSSEOUS INJURY OR SPECIFIC RADIOGRAPHIC FINDINGS OF OSTEOMYELITIS. SKIN ASSESSMENT COMPLETE PATIENT PRESENTS WITH: 1)SACRAL/GLUTEAL AREA PRESSURE ULCER STAGE II MEASURING 1.8 CM X 2 CM X 0.1 CM. MINIMAL 2)RIGHT 1ST TOE UNSTABLE DIABETIC ULCER MEASURING 0.6 CM X 0.5 CM; 100%NECROTIC 3)RIGHT 2ND, 3RD, 4TH AND 5TH TOES COVERED IN 100% NECROTIC TISSUE SURROUNDING THE LATERAL AND PLANTAR AREA OF RIGHT FOOT. ; MEASURING 22 CM X 13CM. MINIMAL SEROUS DRAINAGE PRESENT TO THIS AREA. 4)RIGHT HAND 4TH DIGIT UNSTABLE ULCER; 100% NECROTIC TISSUE PRESENT CIRCUMFERENTIAL TO FINGER.MEASURING 6CM X 4.5 CM . 5)RIGHT HAND 1ST DIGIT, UNSTABLE ULCER; 95% NECROTIC AREA 5% PINK GRANULATION TO ANTERIOR ASPECT OF 1ST DIGIT. MEASURING 1.5 CM X 1.3 CM X 0.2 CM 6)LEFT 2ND TOE UNSTABLE DIABETIC ULCER, MEASURING 1.3 CM X 1.9 CM; 100% NECROTIC TISSUE. 7)LEFT 3RD TOE UNSTABLE DIABETIC ULCER, MEASURING 2.5CM X 1.5 CM; 100% NECROTIC TISSUE. 8)LEFT HEEL STAGE II DIABETIC ULCER; 80% PINK GRANULATION, 20% YELLOW SLOUGH, MODETATE DRAINAGE; MACERATED PERIWOUND. THIS NURSE SPOKE WITH DR. MEJIA NOTIFIED ABOUT WOUND CARE CONSULT FINDINGS; RECEIVED ORDERS FOR WOUND CARE OF DRESSING TO RIGHT HAND FINGERS AND SACRUM. THIS NURSE RECOMMENDED A SURGICAL CONSULT FOR HAND; MD REPORTED THAT PT IS GOING TO BE SEEN SUNDAY AND TO PLAN FOR A CONSULT UPON ASSESSMENT. DR. MEJIA REPORTED A POSSIBLE BKA. THIS NURSE SPOKE WITH DR. ROLLE REGARDING FOOT DIABETIC/PRESSURE ULCERS; IS COVERING FOR DR. WARE. NOTIFIED DR. MEJIA PLAN OF CARE AND RECOMMENDED FOR DR. WARE AND HIM TO HAVE A CONVERSATION WITH DR. MEJIA REGARDING PT PLAN OF CARE. RECEIVED ORDERS FOR FEET WOUND CARE. RECOMMENDATIONS: NURSING TO CLEAN BILATERAL FOOT ULCERS;NECROTIC TISSUE WITH NORMAL SALINE, COMPLETELY PAT DRY WITH 4X4 GAUZE, PAINT WITH BETADINE, TO APPLY A BETADINE WET TO DRY DRESSING AND LOOSELY WRAP WITH KERLIX DAILY. NURSING TO CLEAN LEFT HEEL ULCER WITH NORMAL SALINE, PAT DRY WITH 4X4 GAUZE, PAIT PERIWOUND WITH BETADINE; APPLY MESALT TO HEEL, COVER WITH 4X4 GAUZE AND APPLY A ALLEVYN FOAM. NURSING TO CLEAN RIGHT HAND ULCERS;NECROTIC TISSUE WITH NORMAL SALINE, COMPLETELY PAT DRY WITH 4X4 GAUZE, PAINT WITH BETADINE, TO APPLY A BETADINE WET TO DRY DRESSING AND LOOSELY WRAP WITH KERLIX DAILY. NURSING TO CLEAN SACRAL ULCER WITH NORMAL SALINE; PAT DRY WITH 4X4 GAUZE, APPLY VENELEX AND COVER WITH ALLEVYN FOAM DAILY. NURSING TO CONTINUE TO MONITOR PATIENT AND KEEP SKIN CLEAN AND FREE FROM STOOL OR IRRITATING MOISTURE AND CONTINUE TO FOLLOW MODERATE PUP INTERVENTION DAILY. NURSING TO CONTINUE REPOSITION PT SIDE TO SIDE EVERY TWO HOURS; NURSING TO ENCOURAGE PT TO REPOSITION SELF WELL. NURSING TO CONTINUE TO APPLY AN ALTERNATING PRESSURE MATTRESS. NURSING TO CONTINUE TO OFFLOAD FEET AND HEELS AT ALL TIMES WITH PILLOW SUSPENSION WHEN IN BED. NURSING TO APPLY BILATERAL HEEL PROTECTORS. NURSING TO CONTINUE TO ASSIST PT GET OUT OF BED FOR NUTRITIONAL MEALS TO ENSURE PROPER REQUIREMENTS FOR HEALING. NURSING TO RE- CONSULT WOUND CARE NEEDED. Addendum: 08/15/19 at 1806 by Karrie Junior RN Amended: Links added.
--- NOTE | 2019-08-15 19:10 | NUR ---
RECEIVED BEDSIDE SHIFT REPORT FROM DAY RN. PT IS ALERT AND ORIENTED X2. AT BEDSIDE. RESPIRATIONS ARE EVEN AND UNLABORED. PT WEARING BIPAP. LUNGS CLEAR. SL 20 G IN LEFT HAND. BOOTS ON BOTH FEET. DRESSING TO LEFT FOOT. RT THUMB AND RT RING FINGER GANGRENE.RT TOES GANGRENE. TELE MONITOR ON.AV FISTULA RT UPPER ARM. DIALYSIS M,W,F. REPORT PT TO HAVE DIALYSIS IN AM - MISSED A DAY WHEN ADMITTED TO HOSPITAL.PT HASA BRAIN STIMULATOR- REPORTS HAS SLIGHT TREMOR.CALL LIGHT WITHIN REACH. BED LOCKED AND IN LOW POSITION.
--- NOTE | 2019-08-15 20:04 | Consultation ---
DATE OF CONSULTATION: ROOM NUMBER: [id number]. CHIEF COMPLAINT: Mr. Morgan is a well known to our practice as an 84-year-old gentleman with severe PAD and gangrenous changes to bilateral lower extremities. He was admitted through the emergency room with worsening situation and potential sepsis. He is currently utilizing a Betadine dressings b.i.d. He is on dialysis and sees Dr. Wagoner for that. He has a history of gangrene of his right ring finger. There are distal digital gangrenous changes of the right 2nd and 3rd toes. There is also a very deep and progressive wound ulcer on the right heel posteriorly. There is a distal wet gangrene to the forefoot of the left foot, which extends back to the distal 1/3 of the foot and metatarsals. There is a separate small gangrenous area at the 5th met base and lateral malleolus, those appear to be more superficial. Radiographs consistent with severe foot infection, abscess, cellulitis, and bone and soft tissue changes. Previous medical history includes not only the diabetes and multiple gangrenous changes to bilateral feet, but also a prior history of pneumonia, end-stage renal disease, diabetes, sleep apnea, and recurrent aspiration pneumonia. MEDICATIONS: The patient is on multiple medications, which are well documented elsewhere within the chart. REVIEW OF SYSTEMS: Otherwise negative. He did state that he had vomited his lunch today without aspiration. SOCIAL HISTORY: He is and his is present at the time of my evaluation and provides a significant amount of the history. FAMILY HISTORY: Positive for diabetes, both sides. PHYSICAL EXAMINATION: EXTREMITIES: Physical evaluation of lower extremity, vascular status; nonpalpable pedal pulses, neither dorsalis pedis nor posterior tibial. SKIN: Temperature is cool with warm heels and anterior ankle bilaterally. NEUROLOGIC: Loss of protective sensation is evidenced by [place] monofilament testing. DERMATOLOGICALLY: The aforementioned significant ulcerations most pressing at this moment is the gangrenous forefoot, left. MUSCULOSKELETAL: Evaluation is as previously mentioned with regard to radiographs. The patient is only mildly ambulatory using both extremities to transfer and to walk with a walker on occasion but primarily bedridden. DIAGNOSES: Then is as above, the aforementioned foot ulcerations and distal digital dry gangrene on the right with severe heel ulceration on the right and on the left the progressive wet gangrene of the lateral forefoot. Based on discussion with the patient and given all concerns, Dr. Jaimes will re-evaluate for her best level of amputation. However, at this point, it does appear he may have a viable opportunity to heal from an aggressive and proximal transmetatarsal amputation. The posterior heel tissue on the left is good and the dorsum of the foot on the left is good to the area of ulceration. This certainly is not a guarantee of healing. However, given the fact that a below-knee on the left will likely lead way to a subsequent below-knee on the right with the current infections. There is some reason to be optimistic and pushed forward with transmetatarsal amputation on the left with close followup and monitoring the wounds on the right. Dr. Jaimes will re-evaluate next week and make final decision based on this. The family, both Mr. Morgan and his are understanding of the situation and know that an attempted transmetatarsal may or may not heal. The next viable level would be a below-knee amputation and that would be more likely to heal. However, presenting another level of complications with regard to the right foot. Thank you very much, Dr. Wagoner and Dr. Pace for the excellent care and Dr. Jaimes will re-evaluate next week. JANELLE Dye/ALLEN /[id number]
[2019-08-15] MEDS: MONTELUKAST SODIUM 10 MG TAB PO SCH (21:01)
[2019-08-15] MEDS: TAMSULOSIN HCL 0.4 MG CAP PO SCH (21:01)
[2019-08-15] MEDS ORDERED: SODIUM CHLORIDE 0.9% 250ML 250 ML ONE (21:27)
--- NOTE | 2019-08-15 23:50 | Consultation ---
DATE OF CONSULTATION: REASON FOR CONSULTATION: Shortness of breath. HISTORY OF PRESENT ILLNESS: This patient is an 84-year-old male, comes in with ulcers of bilateral feet. The patient has been having problem with his feet for some time. He was supposed to get dialysis today, but he became really weak, not feeling well, came to the emergency room and he was admitted. PAST MEDICAL HISTORY: The patient has history of bilateral heel abscess, cellulitis, and infection, multiple debridements; history of end-stage renal disease, on hemodialysis; diabetes mellitus with neuropathy; chronic kidney disease; history of AV fistula; obstructive sleep apnea; aspiration pneumonia. SOCIAL HISTORY: Denies smoking, drug abuse, or alcohol abuse. FAMILY HISTORY: Hypertension and diabetes. REVIEW OF SYSTEMS: HEENT: Negative. PULMONARY: Negative. CARDIAC: Negative. : Negative. GENERAL: He is just not feeling well at the present time. The feet is showing some gangrenous changes noted on several toes. There is also on the heel. The pulse was very weak. ALLERGIES: CEFTRIAXONE, BUT HE IS OKAY WITH CEPHALOSPORIN. MEDICATIONS: At home, he is on allopurinol, atenolol, Flomax, and levothyroxine. Medication list; he is currently on vancomycin daily and Zosyn. PHYSICAL EXAMINATION: GENERAL: He is currently alert and oriented. VITAL SIGNS: Stable, currently afebrile. HEENT: He is not icteric. NECK: Supple. CHEST: Clear bilateral. HEART: S1 and S2. No S3, S4, or murmurs. ABDOMEN: Soft. Bowel sounds present. No tenderness. EXTREMITIES: Bilateral feet showed several ischemic ulcers, noted on the toes. Please refer to the Wound Care for full description. The pulse is very weak distally. LABORATORY DATA: Reviewed. White count 13.16, hemoglobin 9.3. Sodium 135, potassium . IMPRESSION: Infection of both feet, gangrenous changes and concern about osteomyelitis, right seems worse than the left. PLAN: I would recommend to continue vancomycin, continue with Zosyn. Recommend Surgical evaluation to consider [id number] amputation. Wound Care consulted. Vascular workup if not done recently. Discussed with Renal. We will follow. MD JAYESH Wagnre/ALLEN /[id number]
[2019-08-16] VITALS (8 sets, daily range): BP systolic 100–130; BP diastolic 37–74
[2019-08-16] MEDS: LEVOTHYROXINE SODIUM 88 MCG TAB PO SCH (05:32)
--- NOTE | 2019-08-16 07:00 | NUR ---
RECEIVED PATIENT AWAKE RESTING IN BED NO S/S OF DISTRESS. BED LOW, WHEELS LOCKED, SIDE RAILS X2. CALL LIGHT IN REACH WILL CONTINUE TO MONITOR PATIENT.
[2019-08-16 07:06] LABS: ALBUMIN 2.3 g/dL (3.5-5.0); ALBUMIN/GLOBULIN RATIO 0.5 (0.8-2.0); ANION GAP 17.2 mmol/L (8-16); CALCIUM 8.8 mg/dL (8.4-10.2); CREATININE, SERUM 8.34 mg/dL (0.72-1.25); POTASSIUM 5.2 mmol/L (3.5-5.1)
[2019-08-16] MEDS: INSULIN REGULAR, HUMAN 100 UNIT/1 ML 3ML VIAL SQ SCH ×4 (07:30→21:47)
[2019-08-16] MEDS ORDERED: MIDODRINE 2.5 MG TAB PO SCH ×2 (07:45→08:00)
[2019-08-16] MEDS ORDERED: SODIUM CHLORIDE 0.9% 1000ML 2,000 ML ONE (08:04)
[2019-08-16] MEDS: CALCIUM ACETATE 667 MG GELCAP PO SCH ×3 (08:06→17:14)
[2019-08-16] MEDS: PANTOPRAZOLE SOD 40 MG TABEC PO SCH (08:07)
[2019-08-16] MEDS: ALLOPURINOL 300 MG TAB PO SCH (08:07)
[2019-08-16] MEDS: GABAPENTIN 300 MG CAP PO SCH ×3 (08:07→21:46)
[2019-08-16] MEDS: ATENOLOL 50 MG TAB PO SCH (08:07)
[2019-08-16] MEDS: OLOPATADINE 5 ML BTL OP SCH ×2 (09:00→16:39)
[2019-08-16] MEDS: BALSAM PERU/CASTOR OIL 60 GM OINT...G. TP SCH (10:32)
--- NOTE | 2019-08-16 12:55 | NUR ---
Dialysis Note SUBJECTIVE: The patient is seen in the emergency room, currently on dialysis. Denies shortness of breath, nausea, or vomiting. Has fairly gangrenous feet. Both are dressed. The dressing has been changed in the emergency room. He also has a dry gangrenous right ring finger. He currently denies shortness of breath or nausea. labs - reviewed OBJECTIVE: VITAL SIGNS: Blood pressure 139/78, pulse is 82, and afebrile. HEAD AND NECK: Cornea clear. Ora mucosa moist. LUNGS: Bibasilar rales. HEART: S1 and S2 audible. ABDOMEN: Soft, nontender, and obese abdomen. Flank is full. EXTREMITIES: Lower extremity, 1+ edema. IMPRESSION AND PLAN: End-stage renal disease, edema, state fluid overload, severe peripheral vascular disease, gangrene, both feet. May need below-knee amputation bilateral. Currently on dialysis. Sodium 140, potassium 3, bicarb 35, and calcium 2.5. Blood flow 400, dialysate 800, UF as tolerated.
--- NOTE | 2019-08-16 13:37 | NUR ---
DIALYSIS COMPLETED. 2.5L PULLED OFF. PATIENT TOLERATED WELL. AT BEDSIDE. WILL CONTINUE TO MONITOR.
[2019-08-16] MEDS: PIPER-TAZ 3.375 GM 50 ML IV SCH ×2 (13:57→21:48)
--- NOTE | 2019-08-16 14:43 | Consultation ---
DATE OF CONSULTATION: Cardiology Consultation CHIEF COMPLAINT: The patient is an 84-year-old with progressive weakness and dyspnea. HISTORY OF PRESENT ILLNESS: The patient is an 84-year-old male, who came to the emergency room with a nonhealing ulcers and gangrene of both feet, left worse than the right. The patient is reported worsening dyspnea and fatigue over the last several weeks. The patient has a history of end-stage renal disease and is on dialysis. PAST MEDICAL HISTORY: Significant for: 1. End-stage renal disease and dialysis. 2. Brain stimulator implant for essential tremor. 3. Diabetes mellitus. 4. Chronic atrial fibrillation. 5. COPD. PAST SURGICAL HISTORY: Significant for: 1. Previous back surgery. 2. Recent peripheral angiogram in April of 2019 demonstrating minimal vascular disease in the left foot. 3. Multiple admissions for respiratory failure. SOCIAL HISTORY: The patient lives at home. The patient does not smoke and does not drink. MEDICATIONS: Include warfarin, gabapentin, insulin, allopurinol and Synthroid. PHYSICAL EXAMINATION: GENERAL: The patient is a heavy male. VITAL SIGNS: Include a temperature of 97.8, pulse was 96, blood pressure was 110/70. HEAD, EARS, EYES, NOSE, AND THROAT: The patient's cranium was normocephalic, atraumatic. Extraocular muscles were intact. NECK: Supple. No jugular venous distention. No carotid bruits. CHEST: Demonstrated rhonchi bilaterally. CARDIAC: Demonstrated irregularly regular rhythm with a short 2/6 systolic murmur. ABDOMEN: Demonstrated good bowel sounds. EXTREMITIES: Demonstrated gangrene of both feet with the left being worse in the right. NEUROLOGIC: The patient was awake and oriented and able to follow commands. IMAGING: The patient's EKG demonstrated atrial fibrillation. IMPRESSION: The patient is an 84-year-old with recurrent extremity infections, which appear to be related to his diabetes. The patient has had a minimal vascular disease on previous arterial duplex and angiogram. The patient has chronic atrial fibrillation with normal left ventricular size and function. His cardiac status is well compensated and is cleared for any required operative procedure. MD RAULITO Dennis/ALLEN /[id number]
--- NOTE | 2019-08-16 19:44 | NUR ---
RECEIVED PT IN BED AOX2 PT IS ALERT . AT BEDSIDE. RESPIRATIONS ARE EVEN AND UNLABORED. PT HAS BIPAP. . SL 20 G IN LEFT HAND. B. DRESSING TO LEFT FOOT. RT THUMB RT RING FINGER AND .RT TOES GANGRENE. TELE SHOWS SR .AV FISTULA RT UPPER ARM. DIALYSIS M,W,F. DIALYZED TODAY HAS TAKEN 2.5 L.PT HAS BRAIN STIMULATOR- HAS SLIGHT TREMOR.CALL LIGHT WITHIN REACH. AT THE BEDSIDE BED LOCKED AND IN LOW POSITION.
[2019-08-16] MEDS: MONTELUKAST SODIUM 10 MG TAB PO SCH (21:46)
[2019-08-16] MEDS: TAMSULOSIN HCL 0.4 MG CAP PO SCH (21:46)
[2019-08-17] VITALS (9 sets, daily range): BP systolic 106–150; BP diastolic 40–54
--- NOTE | 2019-08-17 05:54 | NUR ---
PT RESTED DURING THE NIGHT .DENIES PAIN .NO ACUTE DISTRESS NOTED .CALL LIGHT WITH IN REACH .FAMILY AT THE BEDSIDE
[2019-08-17] MEDS: LEVOTHYROXINE SODIUM 88 MCG TAB PO SCH (06:00)
[2019-08-17 06:41] LABS: BASOPHILS # (AUTO) 0.1 (0.0-0.1); BASOPHILS % 0.7 % (0.0-1.0); EOSINOPHILS # (AUTO) 0.4 (0.0-0.4); HEMATOCRIT 30.2 % (38.2-49.6); HEMOGLOBIN 8.7 g/dL (14.0-18.0); LYMPHOCYTES # (AUTO) 1.6 (1.0-3.2); LYMPHOCYTES % 15.5 % (18.0-39.1); MEAN CORPUSCULAR HEMOGLOBIN 25.7 pg (28-32); MEAN CORPUSCULAR HGB CONC 28.8 g/dL (31-35); MEAN CORPUSCULAR VOLUME 89.1 fL (81-99); MONOCYTES % 9.9 % (4.4-11.3); NEUTROPHILS # (AUTO) 7.1 (2.1-6.9); PLATELET COUNT 227 x10e3/uL (140-360); RED BLOOD COUNT 3.39 x10e6/uL (4.3-5.7); RED CELL DISTRIBUTION WIDTH 18.6 % (11.7-14.4)
--- NOTE | 2019-08-17 06:58 | NUR ---
BEDSIDE REPORT GIVEN TO THE ONCOMING NURSE.
--- NOTE | 2019-08-17 07:00 | NUR ---
RECEIVED PATIENT AWAKE RESTING IN BED NO S/S OF DISTRESS. BED LOW, WHEELS LOCKED, SIDE RAILS X2. CALL LIGHT IN REACH WILL CONTINUE TO MONITOR PATIENT.
[2019-08-17 07:02] LABS: ALBUMIN 2.3 g/dL (3.5-5.0); ALBUMIN/GLOBULIN RATIO 0.5 (0.8-2.0); CALCIUM 8.7 mg/dL (8.4-10.2); CREATININE, SERUM 6.24 mg/dL (0.72-1.25)
[2019-08-17] MEDS: INSULIN REGULAR, HUMAN 100 UNIT/1 ML 3ML VIAL SQ SCH ×4 (07:30→21:00)
[2019-08-17] MEDS: OLOPATADINE 5 ML BTL OP SCH ×2 (07:44→16:18)
[2019-08-17 08:31] LABS: HYPOCHROMASIA SLIGHT
[2019-08-17] MEDS: GABAPENTIN 300 MG CAP PO SCH ×3 (08:37→21:59)
[2019-08-17] MEDS: PANTOPRAZOLE SOD 40 MG TABEC PO SCH (08:37)
[2019-08-17] MEDS: CALCIUM ACETATE 667 MG GELCAP PO SCH ×3 (08:37→16:33)
[2019-08-17] MEDS: ALLOPURINOL 300 MG TAB PO SCH (08:38)
[2019-08-17] MEDS: ATENOLOL 50 MG TAB PO SCH (08:38)
[2019-08-17] MEDS: BALSAM PERU/CASTOR OIL 60 GM OINT...G. TP SCH (08:38)
[2019-08-17] MEDS: PIPER-TAZ 3.375 GM 50 ML IV SCH ×2 (09:39→21:59)
--- NOTE | 2019-08-17 11:20 | NUR ---
ASSISTED PATIENT TO MOTORIZED CHAIR. PATIENT SITTING UP IN CHAIR. CALL LIGHT IN REACH WILL CONTINUE TO MONITOR PATIENT.
--- NOTE | 2019-08-17 15:52 | Progress Note ---
DATE: 08/17/2019 HISTORY OF PRESENT ILLNESS: Mr. Morgan, who is an 84-year-old gentleman, known to me from before. The patient was admitted on August 13. The patient is 84, who has ulcer, gangrene bilateral feet, obesity, neuropathy, bilateral lower extremities venous stasis with dermatitis, peripheral vascular disease, end-stage renal disease on hemodialysis, comes in with cellulitis of bilateral lower extremities. He was seen by Renal. The patient, who has also history of gout. He was admitted. I am asked to see him. PAST MEDICAL HISTORY: Diabetes mellitus, neuropathy, obesity, hypertension, end-stage renal disease on hemodialysis, sleep apnea, and gout. PAST SURGICAL HISTORY: IV access for dialysis. ALLERGIES: NKA. SOCIAL HISTORY: There is no smoking, drug abuse, or alcohol abuse. FAMILY HISTORY: Diabetes mellitus. HOME MEDICATIONS: He is on allopurinol, atenolol, and gabapentin. LABORATORY DATA: Reviewed. X-ray of the foot showed metallic linear foreign body like a needle in the 1st interspace of plantar tissue. He was seen by Dr. Moffett. He was seen by me on August 14. Currently, he is feeling better. REVIEW OF SYSTEMS: HEENT: Negative. PULMONARY: Negative. CARDIAC: Negative. PHYSICAL EXAMINATION: GENERAL: He is currently alert and oriented. Does not seem to be in acute distress. VITAL SIGNS: Stable, currently afebrile. HEENT: He is not icteric. NECK: Supple. CHEST: Clear. HEART: S1 and S2. No S3, S4, or murmurs. ABDOMEN: Soft. Bowel sounds present. EXTREMITIES: Feet seems to be better. IMPRESSION: 1. Cellulitis of both feet, better and gangrene. Continue vancomycin. Continue Zosyn. Continue supportive care. Adjust for his kidney function. 2. End-stage renal disease, on hemodialysis. 3. Brain stimulator implant for essential tremor. 4. Diabetes mellitus with neuropathy. Continue as ordered. Discussed with the . MD JAYESH Wagner/MODL /[id number]
--- NOTE | 2019-08-17 20:00 | NUR ---
RECEIVED PT IN BED AOX2 PT IS ALERT . AT BEDSIDE. RESPIRATIONS ARE EVEN AND UNLABORED. PT HAS BIPAP. . B DRESSING TO LEFT FOOT. RT THUMB RT RING FINGER AND .RT TOES GANGRENE. TELE SHOWS SR .AV FISTULA RT UPPER ARM. DIALYSIS M,W,F..CONTINUE TO MONITOR
[2019-08-17] MEDS: MONTELUKAST SODIUM 10 MG TAB PO SCH (21:59)
[2019-08-17] MEDS: TAMSULOSIN HCL 0.4 MG CAP PO SCH (21:59)
[2019-08-18] VITALS (10 sets, daily range): BP systolic 88–149; BP diastolic 40–68
[2019-08-18] MEDS: LEVOTHYROXINE SODIUM 88 MCG TAB PO SCH (05:28)
--- NOTE | 2019-08-18 05:45 | NUR ---
PT RESTED DURING THE NIGHT,AND DENIES PAIN .FAMILY AT THE BEDSIDE .CALL LIGHT WITH IN REACH .CONTINUE TO MONITOR
--- NOTE | 2019-08-18 06:23 | Progress Note ---
DATE: SUBJECTIVE: The patient did well overnight. No new complaints. His Doppler studies do show evidence of significant peripheral disease on the bilateral lower extremities arterial camacho from the peroneal artery and anterior tibial artery, so basically mentioned down, which was discussed with the patient, which means he will probably heal better with a BKA than a TMA, but family and the patient are still undecided at this moment. OBJECTIVE: VITAL SIGNS: Temperature 98.6, blood pressure 100/76, pulse 74. GENERAL: He is no apparent distress, on his BiPAP. CARDIOVASCULAR: Regular rate and rhythm. LUNGS: Clear to auscultation bilaterally. ABDOMEN: Good bowel sounds. Soft, nontender. EXTREMITIES: No clubbing or cyanosis. Still shows chronic necrotic changes to the left lateral part of his foot as well as some of the right heel, but the right heel looks much better as well as the 4th digit of the right hand and the 1st digit of the right hand. NEUROLOGIC: No new changes. Moves all extremities x4. ASSESSMENT AND PLAN: 1. Peripheral arterial disease. The patient is still considering transmetatarsal amputation versus below-knee amputation, so they would like to have the input of Dr. Hurtado to see what his suggestion is. My suggestion is the likelihood of a transmetatarsal amputation being successful is very, very low. 2. Osteomyelitis of the foot and cellulitis of the wound. Continue with current care with IV antibiotics. 3. End-stage renal disease. Continue with dialysis. 4. Anemia. Continue to monitor p.r.n. 5. Hypertension. Continue with his medications. 6. Diabetes. Continue with his medication. 7. Obstructive sleep apnea. Continue with his BiPAP at night. Please see hospital chart for full details. MD ROXY Guerrero/MODL /[id number]
--- NOTE | 2019-08-18 07:00 | NUR ---
BEDSIDE SHIFT REPORT RECEIVED FROM THE FREELANCE DIGITAL PROJECT MANAGER RN. EDUCATED PT ABOUT FALL PRECAUTIONS. PT VERBALIZED UNDERSTANDING. CALL LIGHT WITH IN EASY REACH. INSTRUCTED PT TO USE CALL LIGHT FOR ALL THE NEEDS. BED IS LOW AND LOCKED. SIDE RAILS X2. BED ALARM IS ON. PT DENIES NEEDS AT THIS TIME.
--- NOTE | 2019-08-18 07:15 | NUR ---
BEDSIDE REPORT GIVEN TO THE ONCOMING NURSE
[2019-08-18] MEDS: INSULIN REGULAR, HUMAN 100 UNIT/1 ML 3ML VIAL SQ SCH ×4 (07:30→23:00)
[2019-08-18] MEDS: CALCIUM ACETATE 667 MG GELCAP PO SCH ×3 (08:30→16:54)
[2019-08-18] MEDS: PANTOPRAZOLE SOD 40 MG TABEC PO SCH (09:07)
[2019-08-18] MEDS: GABAPENTIN 300 MG CAP PO SCH ×3 (09:07→23:09)
[2019-08-18] MEDS: PIPER-TAZ 3.375 GM 50 ML IV SCH ×2 (09:11→23:57)
[2019-08-18] MEDS: ALLOPURINOL 300 MG TAB PO SCH (09:11)
[2019-08-18] MEDS: BALSAM PERU/CASTOR OIL 60 GM OINT...G. TP SCH (10:00)
[2019-08-18] MEDS: OLOPATADINE 5 ML BTL OP SCH ×2 (10:00→16:54)
[2019-08-18] MEDS: ATENOLOL 50 MG TAB PO SCH (11:22)
[2019-08-18] MEDS: MIDODRINE 2.5 MG TAB PO SCH (11:24)
--- NOTE | 2019-08-18 11:34 | Progress Note ---
DATE: 08/18/2019 SUBJECTIVE: The patient is seen and evaluated. Discussed with the in the room. Wounds of bilateral feet examined with a nurse in the room. Clinically feels better. states that the patient got out of his bed for the first time yesterday and feels better overall. OBJECTIVE: VITAL SIGNS: Temperature 97.8, pulse is 62, respirations 17, and blood pressure 105/40. MEDICATION/ANTIBIOTIC: The patient is on vancomycin IV and Zosyn, which I see as an MAR listed in the computer. LABORATORY STUDIES: No new CBC or BMP available. Serology, no new serology available. MICROBIOLOGY: No new microbiology. Blood culture from 08/13 is negative in 72 hours. RADIOLOGY STUDIES: No new radiology studies available. PHYSICAL EXAMINATION: VITAL SIGNS: Alert and oriented, no acute distress. CV: S1-S2. CHEST: Equal expansion. Clear to auscultation. No acute distress. ABDOMEN: Soft, obese, nontender. HEENT: Moist. No pallor. No JVD. EXTREMITIES: The patient has ischemic wounds of the left 2nd, 3rd, and 4th toes with some extension to the lateral side and couple of spots on the side. On the right, the patient has couple of toes with a necrotic tip and the right heel with some yellow sloughy tissue proximally on the heel side. ASSESSMENT AND PLAN: 1. Bilateral lower extremity cellulitis. 2. Gangrenous changes of the feet areas bilaterally with the left worse than right. 3. Heel on the ride, yellow slough tissue. 4. End-stage renal disease. 5. Brain stimulator implant for essential tremors. 6. Diabetes mellitus. 7. Diabetes neuropathy. 8. Severe debility. 9. Overall improving, continue with antibiotics. The patient with peripheral vascular disease/peripheral arterial disease based on peripheral angio on 04/21/2019. The patient will end up with some type of amputation at some point. Pending Cardiology input for recommendation of an amputation level. 10. Osteomyelitis of the feet. 11. Cellulitis of the feet. 12. Continue with antibiotics. Monitor the patient clinically, follow up with the labs. Please refer to chart for more information. Veena Lubin MD ZS/MODL /[id number]
--- NOTE | 2019-08-18 13:00 | NUR ---
PAGED DR. ALSTON AND REPORTED THE PT BLOOD SUGAR 377 . CONTINUE MONITOR PER THE
--- NOTE | 2019-08-18 15:51 | Progress Note ---
DATE: 08/18/2019 SUBJECTIVE: The patient was seen at bedside. The erythema and the edema had began to resolve and they are beginning to localize. He has a well demarcating gangrene to the dorsal aspect of the foot that encompasses about the forefoot on the left. The right, the wound is granular. The erythema and edema are also subsiding. Protective threshold is absent. Intrinsic minus type of foot. His white blood count is trending down. When he came in, it was 13.16, it is now down to 10.24. His neutrophils are also trending down, 9.7 to 7.1. An MRI of the bilateral feet show soft tissue overlying ulceration. There is no definitive signs of osteomyelitis to the right or left. On exam, the left is gangrenous, dry. ASSESSMENT: 1. Diabetic foot ulcer grade 4, left. 2. Diabetic foot ulcer grade 3, right heel. 3. 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 4. End-stage renal disease. 5. Sepsis, resolving with cellulitis. PLAN: Discussed treatment with the patient. At this point, on the left, he is going to need an amputation. The question is a TMA versus a BKA. He does use that left lower extremity to pivot, to transfer. The whole dorsal aspect of the foot is gangrenous. It is dry gangrene, but it is well demarcated. He is at least going to need a transmetatarsal amputation with a flap if the flap is viable. On the right, he is going to need further debridement and possible graft with the use of a wound VAC. I have discussed with him at this point that my recommendation is going to be to wait for the arterial results of bilateral lower extremity. In the past, he showed to have moderate disease. If this is severe and he is not able to heal the TMA, then the BKA would be his better choice for the left, but if he is able to heal the TMA, vascular studies show then a TMA with aggressive local wound care. Follow up [facility], possible hyperbaric chamber for limb salvage. Right now, my recommendation is going to be aggressive local wound care. Get him medically stable. Continue IV antibiotic and then plan for either late this week or early next week to have surgery for the lower extremity. I will continue to follow. Thank you for letting me to participate in the care of this patient. JANELLE Talavera /[id number] MTDD
--- NOTE | 2019-08-18 17:00 | NUR ---
TEACHER THEATER ARTS AT BEDSIDE.
--- NOTE | 2019-08-18 18:00 | NUR ---
WALKING ROUNDS MADE. PT IS AAOX4. PT AT BEDSIDE. DIALYSIS GOING ON. RED CROSS EXECUTIVE DIRECTOR AT BEDSIDE. . NO C/O PAIN OR DISTRESS NOTED. PT DENIES NEEDS TA THIS TIME
[2019-08-18] MEDS: BISACODYL 5 MG TAB EC PO ONE ×2 (18:47→23:09)
--- NOTE | 2019-08-18 19:00 | NUR ---
BEDSIDE SHIFT REPORT GIVEN TO THE TOOL AND DIE ENGINEER RN. PT DENIED FURTHER NEEDS. SALES AND MARKETING ADMINISTRATOR AT BEDSIDE.
--- NOTE | 2019-08-18 19:02 | NUR ---
RECEIVED THE PATIENT IN REPORT.ON DIALYSIS RIGHT NOW.
[2019-08-18] MEDS: VANCOMYCIN 1GM/NS 250 ML 250 ML IV SCH (22:47)
--- NOTE | 2019-08-18 23:00 | NUR ---
Dialysis completed.2 litre removed.stable condition.no resp.distress.no pain voiced.using c pap.family member at bedside.bed alarm on .bed locked and in lowest position.phone and call light within reach.instructed to call for assistance as needed.
[2019-08-18] MEDS: TAMSULOSIN HCL 0.4 MG CAP PO SCH (23:09)
[2019-08-18] MEDS: MONTELUKAST SODIUM 10 MG TAB PO SCH (23:09)
[2019-08-19] VITALS (9 sets, daily range): BP systolic 90–140; BP diastolic 31–50
[2019-08-19] MEDS: LEVOTHYROXINE SODIUM 88 MCG TAB PO SCH (06:07)
--- NOTE | 2019-08-19 07:02 | NUR ---
BED SIDE SHIFT REPORT GIVEN TO ONCOMING RN.STABLE CONDITION.
[2019-08-19] MEDS: ATENOLOL 50 MG TAB PO SCH (09:00)
[2019-08-19] MEDS: CALCIUM ACETATE 667 MG GELCAP PO SCH ×3 (09:07→17:01)
[2019-08-19] MEDS: OLOPATADINE 5 ML BTL OP SCH ×2 (09:07→17:14)
[2019-08-19] MEDS: GABAPENTIN 300 MG CAP PO SCH ×3 (09:07→20:49)
[2019-08-19] MEDS: PANTOPRAZOLE SOD 40 MG TABEC PO SCH (09:07)
[2019-08-19] MEDS: ALLOPURINOL 300 MG TAB PO SCH (09:08)
[2019-08-19] MEDS: BALSAM PERU/CASTOR OIL 60 GM OINT...G. TP SCH (09:10)
[2019-08-19] MEDS: PIPER-TAZ 3.375 GM 50 ML IV SCH ×2 (09:13→22:03)
[2019-08-19] MEDS: INSULIN REGULAR, HUMAN 100 UNIT/1 ML 3ML VIAL SQ SCH ×4 (09:13→20:45)
--- NOTE | 2019-08-19 10:59 | Progress Note ---
DATE: SUBJECTIVE: The patient is seen and evaluated. Available labs and notes reviewed. Discussed with Case Management. Discussed with the patient's . Podiatry note reviewed. REVIEW OF SYSTEMS: Overall, the patient feels better, is more alert. Currently off BiPAP, responds appropriately. Eats better. No complaints from the patient or . The patient is seen with the nurse in the room. No nausea, vomiting, fever, chills, chest pain, shortness of breath, headache, rash. PHYSICAL EXAMINATION: VITAL SIGNS: Temperature 97.8, pulse is 76, respiration 24, blood pressure 104/47. GENERAL: Alert and oriented, no acute distress. CV: S1, S2. CHEST: Equal expansion. Clear to auscultation. No acute distress. ABDOMEN: Soft, nontender. No distention. HEENT: Moist. No pallor. No JVD. EXTREMITIES: Bilateral wounds. No significant change. Remain dry, ischemic toes on both sides, left worse than right. Also has right heel wound which has soft-tissue and seems to be pale little bit. MEDICATIONS: Medication list reviewed. From Infectious Disease point of view patient is on Zosyn and vancomycin IV. LABORATORY STUDIES: No new CBC or BMP. Serology; no new serology studies. MICROBIOLOGY: Blood culture negative on 08/13. RADIOLOGY STUDIES: No new radiology studies available. ASSESSMENT AND PLAN: 1. Bilateral lower extremity cellulitis. 2. Peripheral vascular disease, bilateral lower extremities. 3. Gangrenous changes of bilateral lower extremities spatially the toes with left worse than right. 4. Right heel wound. 5. End-stage renal disease. 6. Diabetes. 7. Diabetic neuropathy. 8. Obesity/debility. 9. Osteomyelitis of feet. 10. Cellulitis of feet. 11. Continue the antibiotics at this point as mentioned above, continue with wound care, podiatry notes reviewed, patient may end up with a TMA on the left side, hoping to heal up, if it does not may end up with BKA. Continue with elevating lower extremities. Further management of this patient is based on daily findings, laboratory and physical examination. The patient is on antibiotic based on his kidney function, which is on dialysis. Please refer to chart for more information. Thank you for this dictation. Dictated by Jg Bernabe PA-C (Al) MD OSCAR Wagner/ALLEN /[id number]
--- NOTE | 2019-08-19 11:59 | NUR ---
CM DISCUSSED PLAN OF CARE WITH DR WARE SHE STATES THAT SURGERY IS PLANNED FOR NEXT WEEK, PROBABLY SUNDAY SHE STATES THAT SURGERY CANNOT BE DONE EARLIER BECAUSE GANGRENE HAS TO STABILIZE IN ORDER TO PREVENT CONTINUOUS READMISSIONS IF HE FAILS THIS UPCOMING SURGERY HE WILL NEED A BKA DPA DONE WILL NEED DETAILED WOUND CARE ORDERS PRIOR TO DC
--- NOTE | 2019-08-19 14:15 | Progress Note ---
DATE: 08/19/2019 SUBJECTIVE: The gangrene is demarcating. The erythema and edema are localizing. He has been cleared by Cardiology for surgery. He is getting local wound care. The right heel is granulating and he has only about 20% fibrosis to the heel and the left forefoot. It is gangrenous and necrotic. It is demarcating. Pedal pulses diminished. Capillary filling time is delayed. Skin thin, shiny, and atrophic. Protective threshold is absent. ASSESSMENT: 1. Diabetic foot ulcer grade 3, right heel. 2. Diabetic foot ulcer grade 4, left foot. 3. Diabetes with neuropathy, peripheral vascular disease. 4. End-stage renal disease. 5. Sepsis, resolving. PLAN: At this point, the plan is for a probable TMA with hopefully a dorsal flap of the left. If unable to obtain full closure of the flap, it would be optimal, if not, it will be partial closure of that flap. Debridement to the right heel. The gangrene is demarcating and needed to be well demarcate before I proceed with surgery. He knows this is his last attempt as limb salvage from a surgical amputation. After this, he is going to need a BKA if this fails. The plan will be possibly to have surgery early next week after the gangrene is well demarcated. He will continue on the IV antibiotics. He will continue on local wound care and getting dialyzed. He would have to be dialyzed the day before surgery next week. Also, I anticipate surgery being on Sunday since he is dialyzed Sunday, Sunday, Sunday. Once discharged, he is probably going to need IV antibiotic, aggressive local wound care, and evaluation for hyperbaric therapy. I have discussed all this with the patient. I will continue to follow and we can begin discharge planning once he has surgery. If he is stable within the next 24 hours from a Podiatry standpoint, he will be able to be discharged. Scheduled for surgery early next week until the gangrene fully demarcates. JANELLE Talavera/ALLEN /[id number] JAYLAN
--- NOTE | 2019-08-19 19:04 | NUR ---
RECEIVED THE PATIENT IN REPORT.LYEING IN THE BED.FAMILY MEMBER AT BED SIDE.STABLE CONDITION.
--- NOTE | 2019-08-19 19:30 | NUR ---
walking round complete pt stable at shift change.
[2019-08-19] MEDS: TAMSULOSIN HCL 0.4 MG CAP PO SCH (20:49)
[2019-08-19] MEDS: MONTELUKAST SODIUM 10 MG TAB PO SCH (20:49)
[2019-08-20] VITALS (7 sets, daily range): BP systolic 93–127; BP diastolic 25–52
[2019-08-20] MEDS: MIDODRINE 2.5 MG TAB PO SCH (04:53)
[2019-08-20] MEDS: LEVOTHYROXINE SODIUM 88 MCG TAB PO SCH (05:08)
[2019-08-20 05:49] LABS: ALBUMIN 2.1 g/dL (3.5-5.0); ALBUMIN/GLOBULIN RATIO 0.5 (0.8-2.0); ANION GAP 18.5 mmol/L (8-16); CALCIUM 8.8 mg/dL (8.4-10.2); CREATININE, SERUM 7.76 mg/dL (0.72-1.25); POTASSIUM 5.5 mmol/L (3.5-5.1)
--- NOTE | 2019-08-20 06:57 | NUR ---
Bed side shift report given to oncoming RN.stable condition.
[2019-08-20] MEDS: CALCIUM ACETATE 667 MG GELCAP PO SCH ×3 (07:32→17:55)
[2019-08-20] MEDS: INSULIN REGULAR, HUMAN 100 UNIT/1 ML 3ML VIAL SQ SCH ×4 (08:26→21:00)
[2019-08-20] MEDS: OLOPATADINE 5 ML BTL OP SCH ×2 (08:31→17:55)
[2019-08-20] MEDS: GABAPENTIN 300 MG CAP PO SCH (08:31)
[2019-08-20] MEDS: PANTOPRAZOLE SOD 40 MG TABEC PO SCH (08:31)
[2019-08-20] MEDS: ATENOLOL 50 MG TAB PO SCH (08:31)
[2019-08-20] MEDS: ALLOPURINOL 300 MG TAB PO SCH (08:32)
[2019-08-20] MEDS: PIPER-TAZ 3.375 GM 50 ML IV SCH ×2 (08:32→20:43)
[2019-08-20] MEDS: BALSAM PERU/CASTOR OIL 60 GM OINT...G. TP SCH (08:32)
[2019-08-20] MEDS: NPH, HUMAN INSULIN ISOPHANE 100 UNIT/1 ML 3ML VIAL SQ SCH ×2 (08:33→18:37)
--- NOTE | 2019-08-20 10:38 | Progress Note ---
DATE: SUBJECTIVE: The patient is seen and evaluated. Available labs and notes reviewed. Discussed with Dr. Lubin in details. Discussed with the patient's and the patient himself. Overall feels better, got some dizziness last night while he was sitting off dinner and he was laid down back by the help of staff and received some low blood pressure medication per my discussion with the and had no more episodes since then. No nausea, vomiting, fever, chills, chest pain, shortness of breath, headache, rash, or dysuria. PHYSICAL EXAMINATION: VITAL SIGNS: Temperature 98.2, pulse is 74, respiration 19, and blood pressure 106/52. GENERAL: Alert and oriented, in no acute distress. CV: S1 and S2. CHEST: Equal expansion. Decreased breath sounds. No acute distress. ABDOMEN: Soft, obese, and nontender. HEENT: Moist. No pallor. No JVD. EXTREMITIES: With ischemic process of all digits as a matter of fact upper extremity and lower extremities with the left lower extremity digits worse than all of all. Also has a wound on the bottom of his foot. The right side of the heel area with some yellow soft tissue. MEDICATIONS: Reviewed and as far as Infectious Disease point of view, the patient is on vancomycin IV and Zosyn, and they were both renally dosed, vancomycin is given with the dialysis and Zosyn is twice a day at 3.375 g. LABORATORY STUDIES: Sodium 136, potassium 5.5, and creatinine 7.76. The patient is on dialysis. No new CBC. Last white blood cells were within normal limit at 10.24. MICROBIOLOGY: Blood culture 08/13, negative x2. RADIOLOGY: No new radiology studies available. ASSESSMENT AND PLAN: 1. Cellulitis of bilateral lower extremities. 2. Peripheral vascular disease of bilateral lower extremities. 3. 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 4. Right heel wound. 5. End-stage renal disease. 6. Diabetes. 7. Diabetic neuropathy. 8. Osteomyelitis. 9. Cellulitis. 10. The patient is seen and evaluated. The web designer note reviewed. At this point, plan is to get a TMA as the last surgical procedure for limb salvage. The patient is currently on broad-spectrum antibiotic coverage. The patient fully aware that he might end up with a below-knee amputation if transmetatarsal amputation fails. Continue with dialysis. Continue with local care. Continue with midodrine for hypotensive events. Overall, clinically no acute distress with guarded prognosis. Discussed with Dr. Lubin. Please refer to chart for more information. Dictated by Jg Garces) EDIS Bernabe Veena Lubin MD /MODL /[id number]
[2019-08-20] MEDS ORDERED: ALBUMIN 25% 12.5GM 0.25 GM/ML BTL IV SCH (13:45)
--- NOTE | 2019-08-20 16:38 | NUR ---
Nutrition Intervention Note RD Recommendation(s) for Physician: -Recommend renal/diabetic diet -Recommend Josh BID to promote wound healing as well as Vitamin C and zinc Plan of Care: RD following, monitoring for tolerance and adequacy Nutrition reason for involvement: Length of stay and pressure ulcer RD Assessment (08/20/19) Pt is an 84 year old male admitted with severe sepsis. Spoke to pt and family member at time of visit. Pt reports a good appetite and it is recorded that pt is currently consuming 75-100% of meals. Pt was unsure of any recent weight changes and mentioned he usually weighs 280 lbs. Pt currently has a weight of 302 lbs in chart. No N/V/D/C or chewing/swallowing issues. Will continue to monitor unless consulted sooner Principal Problems/Diagnoses: severe sepsis PMH: right heel abscess, cellulitis, ESRD, diabetes I/O: 780/- GI: soft, non-tender, round abdomen Skin: sacral/gluteal area stage 2 pressure ulcer and multiple diabetic ulcers Labs: (08/19) K 5.5, BUN 49, Cr 7.76, Glu 223 Meds: insulin, Phoslo, insulin, antibiotics, protonix Ht: 69 inches Wt: 302 lbs BMI: 44.6 kg/m2 IBW: 160 lbs Malnutrition Evaluation (08/20/19) The patient does not meet criteria for a specified degree of malnutrition at this time. Will re-evaluate at follow-up as appropriate. Nutrition Prescription (Diet Order): cardiac/diabetic diet Estimated Nutritional Needs: 3870-1709 calories/day (22-25 kcal/kg IBW) 109-145 g protein/day (1.5-2 g pro/kg IBW) Diet Adequacy: Meeting calorie needs, Meeting protein needs Tolerance: Tolerating PO Diet Education Needs Assessment: Pt declined diet education materials at time of visit Nutrition Care Level: low (pt is eating well) Nutrition Diagnosis: Increased nutrient needs related to increased demand for protein and kcal as evidenced by stage 2 sacral/gluteal area pressure ulcer and multiple diabetic ulcers Goal: Patient will meet 75-100% of estimated needs by follow up Progress: N/A Interventions: -mineral and carbohydrate modified diet, Commercial beverage, Multivitamin/mineral therapy, Recommended Modifications Monitoring/Evaluation: -Total energy intake, Total protein intake, Formula Modified diet, Liquid supplement, Weight change Signed: Ivelisse Cooley RD, LD
[2019-08-20] MEDS: VANCOMYCIN 1GM/NS 250 ML 250 ML IV SCH (17:55)
[2019-08-20] MEDS: MONTELUKAST SODIUM 10 MG TAB PO SCH (19:53)
[2019-08-21] VITALS (8 sets, daily range): BP systolic 78–123; BP diastolic 30–76
[2019-08-21 05:25] LABS: BASOPHILS # (AUTO) 0.1 (0.0-0.1); BASOPHILS % 0.5 % (0.0-1.0); EOSINOPHILS # (AUTO) 0.4 (0.0-0.4); EOSINOPHILS % 4.1 % (0.0-6.0); HEMATOCRIT 26.7 % (38.2-49.6); HEMOGLOBIN 7.7 g/dL (14.0-18.0); LYMPHOCYTES # (AUTO) 1.5 (1.0-3.2); LYMPHOCYTES % 14.9 % (18.0-39.1); MEAN CORPUSCULAR HEMOGLOBIN 26.5 pg (28-32); MEAN CORPUSCULAR HGB CONC 28.8 g/dL (31-35); MEAN CORPUSCULAR VOLUME 91.8 fL (81-99); MONOCYTES # (AUTO) 0.9 (0.2-0.8); MONOCYTES % 9.1 % (4.4-11.3); NEUTROPHILS # (AUTO) 7.2 (2.1-6.9); NEUTROPHILS % 70.4 % (38.7-80.0); PLATELET COUNT 231 x10e3/uL (140-360); RED BLOOD COUNT 2.91 x10e6/uL (4.3-5.7); RED CELL DISTRIBUTION WIDTH 18.4 % (11.7-14.4)
[2019-08-21 05:50] LABS: ALBUMIN 2.3 g/dL (3.5-5.0); ALBUMIN/GLOBULIN RATIO 0.5 (0.8-2.0); CREATININE, SERUM 5.41 mg/dL (0.72-1.25)
[2019-08-21] MEDS: LEVOTHYROXINE SODIUM 88 MCG TAB PO SCH (06:02)
[2019-08-21] MEDS: CALCIUM ACETATE 667 MG GELCAP PO SCH ×3 (07:55→17:13)
[2019-08-21] MEDS: NPH, HUMAN INSULIN ISOPHANE 100 UNIT/1 ML 3ML VIAL SQ SCH ×2 (07:56→16:58)
[2019-08-21] MEDS: INSULIN REGULAR, HUMAN 100 UNIT/1 ML 3ML VIAL SQ SCH ×4 (07:57→21:30)
[2019-08-21] MEDS: BALSAM PERU/CASTOR OIL 60 GM OINT...G. TP SCH (08:47)
[2019-08-21] MEDS: GABAPENTIN 100 MG CAP PO SCH (08:47)
[2019-08-21] MEDS: PIPER-TAZ 3.375 GM 50 ML IV SCH ×2 (08:47→21:39)
[2019-08-21] MEDS: PANTOPRAZOLE SOD 40 MG TABEC PO SCH (08:47)
[2019-08-21] MEDS: OLOPATADINE 5 ML BTL OP SCH ×2 (08:47→17:14)
--- NOTE | 2019-08-21 11:43 | Progress Note ---
DATE: SUBJECTIVE: The patient is seen and evaluated. Available labs and notes reviewed. Discussed with the staff. Discussed with the patient's . She is happy with the progress. No complaints today. The patient is comfortable in bed, on CPAP. No acute distress. No specific complaint from the or the patient. PHYSICAL EXAMINATION: VITAL SIGNS: Temperature 98.9, pulse is 72, respiration 22, and blood pressure 105/39. GENERAL: Alert and oriented, comfortable in bed with CPAP. CV: S1 and S2. CHEST: Equal expansion. Decreased breath sounds. No acute distress. ABDOMEN: Soft, nontender, and obese. Bowel sounds positive. HEENT: Moist. No pallor. No JVD. EXTREMITIES: Dry ischemic wounds. No significant change. MEDICATIONS: Medication list reviewed and as far as Infectious Disease point of view, the patient is on Zosyn and vancomycin renally dosed. LABORATORY STUDIES: White count of 10.19, hemoglobin 7.7, and platelet 231. Sodium 138, potassium 5, and creatinine 5.41. The patient is on dialysis. Serology; no new serology available. MICROBIOLOGY: Blood culture 08/13, is negative so far x2. RADIOLOGY STUDIES: No new radiology studies available. ASSESSMENT AND PLAN: 1. Ischemic toes/feet, worse on the left, cellulitis of lower extremities. 2. Peripheral vascular disease. 3. Multiple wounds of lower extremities. 4. End-stage renal disease. 5. Diabetes. 6. Osteomyelitis. 7. Diabetic neuropathy. 8. Cellulitis. 9. Continue with antibiotics, which are renally dosed at this moment. Continue with the wound care. Possible transmetatarsal amputation with guarded prognosis next week. May end up with below-knee amputation. Continue with antibiotics and monitor the patient. Further management of this patient is based on daily findings on laboratory and physical examination. Discussed with Dr. Lubin in details. Please refer to chart for more information. MD JAYESH Wagner/MODL /[id number]
[2019-08-21] MEDS ORDERED: ACETAMINOPHEN 325 MG TAB PO PRN (16:00)
[2019-08-21] MEDS: MONTELUKAST SODIUM 10 MG TAB PO SCH (20:58)
[2019-08-22] VITALS (8 sets, daily range): BP systolic 98–125; BP diastolic 40–59
[2019-08-22] MEDS ORDERED: MIDODRINE 2.5 MG TAB PO SCH ×2 (05:15→09:00)
[2019-08-22] MEDS: LEVOTHYROXINE SODIUM 88 MCG TAB PO SCH (05:38)
[2019-08-22] MEDS: CALCIUM ACETATE 667 MG GELCAP PO SCH ×3 (08:00→17:09)
[2019-08-22] MEDS: PANTOPRAZOLE SOD 40 MG TABEC PO SCH (08:00)
[2019-08-22] MEDS: GABAPENTIN 100 MG CAP PO SCH (08:00)
[2019-08-22] MEDS: OLOPATADINE 5 ML BTL OP SCH ×2 (08:00→17:09)
[2019-08-22] MEDS: PIPER-TAZ 3.375 GM 50 ML IV SCH ×2 (08:01→21:37)
[2019-08-22] MEDS: BALSAM PERU/CASTOR OIL 60 GM OINT...G. TP SCH (08:01)
[2019-08-22] MEDS: NPH, HUMAN INSULIN ISOPHANE 100 UNIT/1 ML 3ML VIAL SQ SCH ×2 (08:01→17:31)
[2019-08-22] MEDS: INSULIN REGULAR, HUMAN 100 UNIT/1 ML 3ML VIAL SQ SCH ×4 (08:01→23:21)
[2019-08-22] MEDS: MIDODRINE 2.5 MG TAB PO SCH ×2 (08:24→17:32)
[2019-08-22] MEDS ORDERED: SODIUM CHLORIDE 0.9% 1000ML 2,000 ML ONE (09:18)
[2019-08-22] MEDS ORDERED: SODIUM CHLORIDE 0.9% 250ML 250 ML ONE (09:18)
--- NOTE | 2019-08-22 10:57 | Progress Note ---
DATE: SUBJECTIVE: The patient is seen and evaluated. Available labs and notes reviewed. Discussed with the patient's . Discussed with the nurse. REVIEW OF SYSTEMS: Left-sided discomfort with movement seems better today. No nausea, vomiting, fever, chills, chest pain, or shortness of breath. MEDICATIONS/ANTIBIOTICS: The patient is on vancomycin IV with dialysis and Zosyn twice a day, renally dosed. LABORATORY STUDIES: No new CBC or BMP from today. MICROBIOLOGY: No new microbiology. RADIOLOGY: No new radiology. PHYSICAL EXAMINATION: VITAL SIGNS: Temperature 98.2, pulse 64, respirations 18, and blood pressure 122/50. GENERAL: Alert and oriented, currently off BiPAP. No acute distress. CV: S1-S2. CHEST: Equal expansion. Decreased breath sounds. No acute distress. ABDOMEN: Morbidly obese, soft, nontender. HEENT: Moist. No pallor. No JVD. EXTREMITIES: No significant changes to ischemic toes and fingers. ASSESSMENT AND PLAN: 1. Ischemic process of digits with a left foot worst than all. 2. Cellulitis of lower extremity. 3. Peripheral arterial disease. 4. Osteomyelitis. 5. End-stage renal disease. 6. Multiple wounds of digits. 7. Diabetes mellitus. 8. Diabetic neuropathy. 9. Cellulitis. 10. Left-sided trunk pain which is better, pain caused with movement when he rolls in the bed. Continue with antibiotics. Pending possible TMA early next week. May end up with BKA if TMA fails. Continue with the dialysis. Monitor the patient clinically and follow up with the labs. Overall guarded prognosis. Discussed with the . Discussed with Dr. Lubin. Please refer to chart for more information. Dictated by Jg Bernabe PA-C (Al) Veena Lubin MD /MODL /[id number]
--- NOTE | 2019-08-22 17:09 | Progress Note ---
DATE: 08/22/2019 SUBJECTIVE: The patient was seen at bedside. He is doing well. He is on local wound care. He is being offloaded. His white blood count is trending down. The wound is improving. Cellulitis and edema is also improving the left foot gangrenous digits from the forefoot distally the right heel down to the level of bone full-thickness ulcer. ASSESSMENT: 1. 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 2. Right diabetic foot ulcer grade. 3. Right heel. 4. Diabetic foot ulcer, grade 4, left forefoot. PLAN: Discussed treatment with the patient. He is scheduled for surgery on 08/26/2019 at 8:30 am. He will be n.p.o. the night before. He is to be consented for debridement to include bone on the right and a TMA to the left. He continues on IV antibiotics. Continue wound care. This is purely limb salvage. They know that if this failed he is going to need a BKA. I will continue to follow. He will be consented and he will be n.p.o. for surgery on 08/26/2019 at 8:30 am. JANELLE Talavera/ALLEN /[id number] JAYLAN
[2019-08-22] MEDS: VANCOMYCIN 500MG/NS 0.9% 100ML 100 ML IV SCH (18:10)
--- NOTE | 2019-08-22 19:15 | NUR ---
BEDSIDE SHIFT REPORT RECEIVED. PATIENT IS RESTING IN BED, RESP EVEN AND UNLABORED. TELE IN PLACE NOTED.EDUCATED PT ABOUT FALL PRECAUTIONS. PT VERBALIZED UNDERSTANDING. CALL LIGHT WITH IN EASY REACH. INSTRUCTED PT TO USE CALL LIGHT FOR ASSISTANCE. BED IS LOW/LOCKED. SIDE RAILS X2. BED ALARM IS ON. PT DENIES NEEDS AT THIS TIME.
[2019-08-22] MEDS: MONTELUKAST SODIUM 10 MG TAB PO SCH (21:37)
[2019-08-23] VITALS: BP 118/43
[2019-08-23] MEDS: LEVOTHYROXINE SODIUM 88 MCG TAB PO SCH (05:19)
[2019-08-23 09:00] VITALS: BP 105/47
[2019-08-23] MEDS: CALCIUM ACETATE 667 MG GELCAP PO SCH ×3 (10:00→16:24)
[2019-08-23] MEDS: MIDODRINE 2.5 MG TAB PO SCH ×2 (10:00→16:25)
[2019-08-23] MEDS: OLOPATADINE 5 ML BTL OP SCH ×2 (10:00→16:25)
[2019-08-23] MEDS: INSULIN REGULAR, HUMAN 100 UNIT/1 ML 3ML VIAL SQ SCH ×4 (10:02→21:22)
[2019-08-23] MEDS: PANTOPRAZOLE SOD 40 MG TABEC PO SCH (10:03)
[2019-08-23] MEDS: PIPER-TAZ 3.375 GM 50 ML IV SCH ×2 (10:03→21:23)
[2019-08-23] MEDS: BALSAM PERU/CASTOR OIL 60 GM OINT...G. TP SCH (10:03)
[2019-08-23] MEDS: GABAPENTIN 100 MG CAP PO SCH (10:03)
[2019-08-23] MEDS: NPH, HUMAN INSULIN ISOPHANE 100 UNIT/1 ML 3ML VIAL SQ SCH ×2 (10:03→16:26)
--- NOTE | 2019-08-23 10:22 | Progress Note ---
DATE: SUBJECTIVE: The patient is an 84-year-old male, who came in with sepsis. The patient is currently on vancomycin and Zosyn after dialysis. He has history of end-stage renal disease, morbid obesity, sleep apnea, hypertension, hyperlipidemia, hypothyroidism, and orthostatic hypotension. Current medications reviewed including Zosyn and vancomycin. OBJECTIVE: VITAL SIGNS: Temperature is 97.9, pulse of 61, respirations 16, blood pressure is 118/43, and pulse oximetry of 96%. HEENT: Normocephalic and atraumatic. The patient is using his CPAP. CVS: S1 and S2 normal. Irregular. ABDOMEN: Nontender and nondistended. EXTREMITIES: The patient's left lower extremity with necrotic tissue. Dry gangrene present in the 2nd, 3rd, 4th, and 5th toe with extension to the mid metatarsals. The patient's right side with poor granulation tissue. Wound and also in the calcaneal area with extensive soft tissue present. Right upper extremity 3rd digit with dry gangrene too and also dry gangrene starting in the 1st digit. LABORATORY VALUES: White count is 10.19, hemoglobin 7.7, hematocrit of 26.7, microcytic. Chemistries; sodium 138, potassium 5.0, BUN of 30, creatinine of 5.41, and glucose has been running in the 200s to 300s. Coags; INR is 1.09. Toxicology; vancomycin trough is 18 and serology, coronavirus not detected and hepatitis C antibody not detected. ASSESSMENT: Mr. Ankur Morgan with: 1. Sepsis. 2. Dry gangrene ischemia of the left foot. 3. Chronic venous ulcer of the right lower extremity. 4. Peripheral arterial disease. 5. Osteomyelitis. 6. Dry gangrene in his upper extremities. 7. Diabetes mellitus. 8. Hypertension. 9. End-stage renal disease. 10. Anemia of chronic disease and anemia of blood loss and iron deficiency. 11. Diabetic neuropathy. 12. Morbid obesity. PLAN: The patient is scheduled for TMA next week. We will need debridement of the right lower heel. The patient is a vasculopath in mind, end up with DKA and also autoamputation of the right extremities. Currently on dialysis. We will continue with this and vancomycin, and antibiotics as per ID. Further recommendation per clinical course. Discussed in detail with . We will continue to monitor the patient. Further recommendation per clinical course and we will transfuse as needed. MD PEGGY Heath/FRANCISCOL /[id number]
[2019-08-23 12:00] VITALS: BP 105/47
--- NOTE | 2019-08-23 13:18 | Progress Note ---
DATE: 08/23/2019 SUBJECTIVE: The patient is at bedside, accompanied by spouse. Denying any history of fever, chills, nausea, or vomiting. OBJECTIVE: VITAL SIGNS: Afebrile. Pulse rate 63, respirations 18, blood pressure 105/47, O2 saturation 96%. EXTREMITIES: Has dry gangrenous changes noted to the forefoot aspect of the left foot including digits 2 through 5. Has pregangrenous changes noted to the distal aspect of the 2nd and 3rd toes right foot with a grade 3 ulcer right heel measuring approximately 6 cm in diameter with some granulation tissue, but no bone exposed. Pedal pulses diminished. CURRENT MEDICATIONS: Note listed including IV vancomycin and Zosyn. ASSESSMENT: Peripheral arterial disease, dry gangrenous changes with cellulitis, both lower extremities with a grade 3 ulceration. PLAN: We will continue offloading. Continue wound care. Continue IV antibiotics. We will continue to follow until Dr. Jaimes gets back on the case for a possible planned transmetatarsal amputation to the left lower extremity. JANELLE Aragon/ALLEN /[id number]
--- NOTE | 2019-08-23 15:33 | Progress Note ---
DATE: SUBJECTIVE: Mr. Morgan is doing well. There are no new complaints. REVIEW OF SYSTEMS: HEENT: Negative. PULMONARY: Negative. The patient is currently on vancomycin and Zosyn. PHYSICAL EXAMINATION: GENERAL: He is currently alert and oriented. Does not seem to be in acute distress. VITAL SIGNS: Stable, afebrile. HEENT: He is not icteric. NECK: Supple. CHEST: Clear. HEART: S1 and S2. No S3, S4, or murmurs. ABDOMEN: Soft and obese. IMPRESSION: Gangrene of left foot, ischemic changes, chronic venous stasis, chronic venous ulcer, peripheral vascular disease, chronic osteomyelitis, obesity, diabetes mellitus, and end-stage renal disease. The patient could be switched to oral doxycycline. He wants to be discharged home. Continue with antibiotic as ordered for the time being. Discussed with the patient. Discussed with the . Discussed with medical team. MD JAYESH Wagner/ALLEN /[id number]
[2019-08-23 16:11] VITALS: BP 115/40
[2019-08-23 20:00] VITALS: BP 106/42
[2019-08-23] MEDS: MONTELUKAST SODIUM 10 MG TAB PO SCH (21:22)
[2019-08-24] VITALS (7 sets, daily range): BP systolic 97–117; BP diastolic 31–59
[2019-08-24] MEDS: LEVOTHYROXINE SODIUM 88 MCG TAB PO SCH (05:46)
--- NOTE | 2019-08-24 07:10 | NUR ---
REPORT GIVEN TO [facility] NURSE. AAOX3. NO SIGNS OF IV INFILTRATION. RESTING IN BED. BED LOCKED AND IN LOW POSITION. CALL LIGHT WITHIN REACH. AT BEDSIDE.
--- NOTE | 2019-08-24 08:51 | Progress Note ---
DATE: SUBJECTIVE: An 84-year-old male. This patient is here for cellulitis, osteomyelitis, tenderness and erythema of the bilateral lower extremities and also ulceration of the bilateral lower extremities. The patient is scheduled for amputation on Sunday. Current medications have been reviewed. The patient has no complaint and pain is controlled. OBJECTIVE: VITAL SIGNS: Temperature is 98, pulse 60, respirations of 20, blood pressure is 117/48, pulse oximetry of 98%. HEENT: Normocephalic and atraumatic. Pupils are reactive. CVS: S1 and S2 normal. Regular rate and rhythm. ABDOMEN: Nontender, nondistended. EXTREMITIES: Right lower extremity with heel ulcer with slough, left lower extremity with gangrene with extension of erythema and cellulitis to the mid foot area. Upper extremity with dry gangrene. LABORATORY DATA: None done from August 20. On August 20, hemoglobin of 7.7, hematocrit 26.7, glucoses have been running in the 180s to 284s. The patient's BUN and creatinine 30 and 5.41. The patient is undergoing dialysis. ASSESSMENT: Mr. Morgan with, 1. Sepsis. 2. Dry gangrene. 3. Peripheral artery disease. 4. Osteomyelitis. 5. Diabetes mellitus. 6. Hypertension. 7. End-stage renal disease. 8. Anemia of chronic disease. 9. Iron deficiency anemia. 10. Diabetic neuropathy. 11. Sleep apnea. PLAN: Continue with current regimen. Further recommendation and clinical course. TMA on Sunday. Further recommendation per clinical course. MD PEGGY Heath/FRANCISCOL /[id number]
[2019-08-24] MEDS: MIDODRINE 2.5 MG TAB PO SCH ×2 (10:02→17:09)
[2019-08-24] MEDS: PIPER-TAZ 3.375 GM 50 ML IV SCH ×2 (10:02→21:10)
[2019-08-24] MEDS: GABAPENTIN 100 MG CAP PO SCH (10:02)
[2019-08-24] MEDS: OLOPATADINE 5 ML BTL OP SCH ×2 (10:02→17:09)
[2019-08-24] MEDS: BALSAM PERU/CASTOR OIL 60 GM OINT...G. TP SCH (10:02)
[2019-08-24] MEDS: PANTOPRAZOLE SOD 40 MG TABEC PO SCH (10:02)
[2019-08-24] MEDS: CALCIUM ACETATE 667 MG GELCAP PO SCH ×3 (10:02→17:09)
[2019-08-24] MEDS: INSULIN REGULAR, HUMAN 100 UNIT/1 ML 3ML VIAL SQ SCH ×4 (10:03→21:10)
[2019-08-24] MEDS: NPH, HUMAN INSULIN ISOPHANE 100 UNIT/1 ML 3ML VIAL SQ SCH ×2 (10:04→17:08)
--- NOTE | 2019-08-24 14:52 | Progress Note ---
DATE: SUBJECTIVE: Mr. Morgan is doing well. No new complaints, up in a chair. REVIEW OF SYSTEMS: He is still weak. PHYSICAL EXAMINATION: GENERAL: Currently alert, oriented. Does not seem acute distress. VITAL SIGNS: Stable, currently afebrile. HEENT: He is not icteric. NECK: Supple. CHEST: Clear. HEART: S1-S2. No murmurs. ABDOMEN: Soft. LABORATORY DATA: Reviewed. Chart reviewed. His hemoglobin 7.7, and hematocrit 26. IMPRESSION: 1. Sepsis on admission, resolved. 2. Cellulitis of the foot. 3. Osteomyelitis of the feet, bilateral. 4. Diabetes. 5. Neuropathy. 6. End-stage renal disease from hypertension. 7. Sleep apnea. 8. Congestive heart failure. PLAN: 1. From Infectious Disease point of view, continue antibiotic as ordered. We will change to oral antibiotic for suppressive treatment and continue with local care. 2. Bilateral lower extremity cellulitis, osteomyelitis. Prognosis is guarded. Discussed with the patient, discussed with the medical team. MD JAYESH Wagner/ALLEN /[id number]
--- NOTE | 2019-08-24 20:17 | Progress Note ---
DATE: 08/24/2019 SUBJECTIVE: The patient is seen at bedside, accompanied by spouse, in no apparent distress. OBJECTIVE: VITAL SIGNS: Afebrile, pulse rate 67, blood pressure 117/44, and O2 saturation 20%. EXTREMITIES: Dry gangrenous changes noted to the 2nd, 3rd, 4th, and 5th digits, left foot. Grade 3 ulceration right heel with pregangrenous changes noted to the 2nd and 3rd toes, right foot. LABORATORY DATA: White blood cell count of 10.1, hemoglobin 7.7, and platelet count of 231, with a blood glucose of 306. ASSESSMENT: Peripheral arterial disease, diabetic neuropathy, dry gangrene with a grade 3 ulcer, right foot, healing. PLAN: Continue local wound care. Continue offloading. We will continue to follow. Continue IV antibiotics such as vancomycin. JANELLE Aragon/ALLEN /[id number]
[2019-08-24] MEDS: MONTELUKAST SODIUM 10 MG TAB PO SCH (21:10)
[2019-08-25] VITALS (8 sets, daily range): BP systolic 118–142; BP diastolic 41–57
[2019-08-25] MEDS: LEVOTHYROXINE SODIUM 88 MCG TAB PO SCH (05:28)
--- NOTE | 2019-08-25 07:00 | NUR ---
BEDSIDE SHIFT REPORT RECEIVED FROM CREAM HAULER RN. PT DENIES NEEDS AT THIS TIME.
--- NOTE | 2019-08-25 07:10 | NUR ---
REPORT GIVEN TO DAYSHIFT NURSE. RESTING IN BED. AAOX3. BED LOCKED AND IN LOW POSITION. CALL LIGHT WITHIN REACH. NO SIGNS OF IV INFILTRATION.
[2019-08-25] MEDS: INSULIN REGULAR, HUMAN 100 UNIT/1 ML 3ML VIAL SQ SCH ×4 (07:30→21:00)
--- NOTE | 2019-08-25 08:15 | Progress Note ---
DATE: SUBJECTIVE: The patient came in with cellulitis, gangrene of the lower extremities with ulceration of the right and gangrene of the left, scheduled for an amputation tomorrow. Currently, no chest pain, no short shortness of breath. He is on a CPAP and has no obvious complaints today. OBJECTIVE: VITAL SIGNS: Temperature is 98.4, pulse of 58, respirations of 16, blood pressure is 124/41, pulse oximetry of 96%. HEENT: Normocephalic, atraumatic, on a CPAP right now. CVS: S1 and S2 normal. Regular rate and rhythm. ABDOMEN: Nontender, nondistended. EXTREMITIES: Lesions of ischemia and gangrene noted. The patient also has a large ulcer and also gangrenous changes in the upper extremities. ASSESSMENT: Mr. Ankur Morgan with. 1. Sepsis. 2. Dry gangrene. 3. Peripheral artery disease. 4. Osteomyelitis. 5. Diabetes mellitus. 6. Hypertension. 7. End-stage renal disease. 8. Iron deficiency anemia and diabetic neuropathy. PLAN: Schedule for TMA tomorrow. Further recommendation per clinical course. We will continue to monitor the patient and all medicines that he is taking has been reviewed and continue the same. MD PEGGY Heath/ALLEN /[id number]
[2019-08-25] MEDS: MIDODRINE 2.5 MG TAB PO SCH ×2 (09:05→17:23)
[2019-08-25] MEDS: GABAPENTIN 100 MG CAP PO SCH (09:05)
[2019-08-25] MEDS: PANTOPRAZOLE SOD 40 MG TABEC PO SCH (09:05)
[2019-08-25] MEDS: BALSAM PERU/CASTOR OIL 60 GM OINT...G. TP SCH (09:05)
[2019-08-25] MEDS: OLOPATADINE 5 ML BTL OP SCH ×2 (09:06→17:16)
[2019-08-25] MEDS: CALCIUM ACETATE 667 MG GELCAP PO SCH ×3 (09:09→17:16)
[2019-08-25] MEDS: NPH, HUMAN INSULIN ISOPHANE 100 UNIT/1 ML 3ML VIAL SQ SCH ×2 (09:29→17:18)
[2019-08-25] MEDS ORDERED: SODIUM CHLORIDE 0.9% 1000ML 2,000 ML ONE (10:18)
--- NOTE | 2019-08-25 10:30 | Progress Note ---
DATE: SUBJECTIVE: The patient is seen and evaluated. Available labs and notes reviewed. Discussed with Dr. Lubin. The patient's is in the room. REVIEW OF SYSTEMS: complained that the patient coughs sometimes when he eats. No nausea. No vomiting. No fever. No chills. No chest pain. No shortness of breath. PHYSICAL EXAMINATION: VITAL SIGNS: Temperature 97.3, pulse is 50, respirations 20, and blood pressure 118/43. MEDICATIONS: Reviewed from Infectious Disease point of view, the patient is on Zosyn and vancomycin. LABORATORY STUDIES: White count of 10.19, hemoglobin 7.7, platelets 231. No new BMP from today. Vancomycin trough 18 on 08/21. SEROLOGY: Coronavirus PCR not detected on 08/13: Coronavirus PCR pending on 08/23/2019. MICROBIOLOGY: Blood culture negative on 08/13. RADIOLOGY: No new radiology studies available. ASSESSMENT AND PLAN: 1. Sepsis on admission, resolved. 2. Cellulitis of foot. 3. Osteomyelitis of feet. 4. Diabetes. 5. End-stage renal disease. 6. Sleep apnea. 7. Neuropathy. 8. Congestive heart failure. 9. The patient to be having a TMA most likely tomorrow, presumptively podiatry note reviewed. No mention of surgery noted on podiatry note from yesterday in assessment and plan. Continue with antibiotics. Follow up patient clinically. Pain management. Elevate the back of the bed. Overall guarded prognosis. Please refer to chart for more information. Dictated by Jg Bernabe PA-C (Al) Veena Lubin MD /MODL /[id number]
[2019-08-25] MEDS ORDERED: EPOETIN ALFA-EPBX 10,000 UNIT/ML VIAL SC SCH (12:00)
[2019-08-25 12:11] LABS: PHOSPHORUS 2.6 MG/DL (2.3-4.7); POTASSIUM 5.3 mmol/L (3.5-5.1)
[2019-08-25] MEDS: EPOETIN ALFA-EPBX 10,000 UNIT/ML VIAL SC SCH (13:31)
--- NOTE | 2019-08-25 15:22 | Progress Note ---
DATE: 08/25/2019 SUBJECTIVE: The patient is seen at bedside, getting dialyzed, accompanied by spouse. Denying any history of fever, chills, nausea, or vomiting with minimal to no discomfort to both lower extremities. OBJECTIVE: VITAL SIGNS: Afebrile, pulse rate 63, respirations 20, blood pressure 133/57, and O2 saturation 95%. LABORATORY DATA: White blood cell count of 10.1, hemoglobin 9.4, and platelet count of 231, with a blood glucose of 306. Gangrenous changes noted to the forefoot aspect left foot, grade 3 ulcer right foot and heel with pregangrenous changes to the 2nd and 3rd toes, right lower extremity. ASSESSMENT: Dry gangrene, cellulitis, left foot with decreased circulatory status with diabetic neuropathy. PLAN: The patient will be taken for surgical intervention tomorrow per Dr. Jaimes. The patient and patient's spouse were asked if they have any questions, no questions asked. It was informed that Dr. Jaimes will discuss procedure in detail. We will continue offloading, continue local wound care until surgery tomorrow. JANELLE Aragon/ALLEN /[id number]
[2019-08-25 16:57] LABS: BASOPHILS # (AUTO) 0.1 (0.0-0.1); BASOPHILS % 0.7 % (0.0-1.0); EOSINOPHILS # (AUTO) 0.5 (0.0-0.4); EOSINOPHILS % 3.7 % (0.0-6.0); HEMATOCRIT 34.3 % (38.2-49.6); HEMOGLOBIN 10.4 g/dL (14.0-18.0); LYMPHOCYTES # (AUTO) 1.6 (1.0-3.2); LYMPHOCYTES % 12.2 % (18.0-39.1); MEAN CORPUSCULAR HEMOGLOBIN 26.9 pg (28-32); MEAN CORPUSCULAR HGB CONC 30.3 g/dL (31-35); MEAN CORPUSCULAR VOLUME 88.6 fL (81-99); MONOCYTES # (AUTO) 1.2 (0.2-0.8); MONOCYTES % 9.2 % (4.4-11.3); NEUTROPHILS # (AUTO) 9.8 (2.1-6.9); NEUTROPHILS % 73.3 % (38.7-80.0); PLATELET COUNT 225 x10e3/uL (140-360); RED BLOOD COUNT 3.87 x10e6/uL (4.3-5.7); RED CELL DISTRIBUTION WIDTH 18.5 % (11.7-14.4)
[2019-08-25 17:17] LABS: ALBUMIN 2.4 g/dL (3.5-5.0); ALBUMIN/GLOBULIN RATIO 0.5 (0.8-2.0); ANION GAP 16.1 mmol/L (8-16); CALCIUM 9.4 mg/dL (8.4-10.2); CREATININE, SERUM 4.44 mg/dL (0.72-1.25); POTASSIUM 4.1 mmol/L (3.5-5.1)
[2019-08-25] MEDS: VANCOMYCIN 500MG/NS 0.9% 100ML 100 ML IV SCH (17:18)
[2019-08-25] MEDS: MONTELUKAST SODIUM 10 MG TAB PO SCH (20:53)
[2019-08-26] VITALS (7 sets, daily range): BP systolic 105–125; BP diastolic 42–56
[2019-08-26] MEDS: LEVOTHYROXINE SODIUM 88 MCG TAB PO SCH (04:43)
--- NOTE | 2019-08-26 07:00 | NUR ---
BEDSIDE SHIFT REPORT RECEIVED FROM [employer]NATIONAL FLIGHT ATTENDANT RN. PT DENIES NEEDS AT THIS TIME.
[2019-08-26] MEDS: CALCIUM ACETATE 667 MG GELCAP PO SCH ×3 (07:30→16:53)
[2019-08-26] MEDS: INSULIN REGULAR, HUMAN 100 UNIT/1 ML 3ML VIAL SQ SCH ×4 (07:30→21:00)
[2019-08-26] MEDS: OLOPATADINE 5 ML BTL OP SCH ×2 (08:15→16:53)
[2019-08-26] MEDS: GABAPENTIN 100 MG CAP PO SCH (08:15)
[2019-08-26] MEDS: MIDODRINE 2.5 MG TAB PO SCH ×2 (08:15→16:55)
[2019-08-26] MEDS: PANTOPRAZOLE SOD 40 MG TABEC PO SCH (08:16)
[2019-08-26] MEDS: NPH, HUMAN INSULIN ISOPHANE 100 UNIT/1 ML 3ML VIAL SQ SCH ×2 (08:16→17:04)
[2019-08-26] MEDS: BALSAM PERU/CASTOR OIL 60 GM OINT...G. TP SCH (08:16)
[2019-08-26] MEDS: PIPER-TAZ 3.375 GM 50 ML IV SCH ×2 (10:00→22:00)
[2019-08-26] MEDS ORDERED: BUPIVACAINE HCL 0.5% INJ 30 ML VIAL INJ ONE (10:34)
[2019-08-26] MEDS ORDERED: NEOSTIGMINE 1 MG/ML 10ML VIAL ONE (10:34)
[2019-08-26] MEDS ORDERED: BACITRACIN 50,000 UNIT VIAL ONE (10:35)
--- NOTE | 2019-08-26 11:20 | Progress Note ---
DATE: SUBJECTIVE: The patient is seen and evaluated. Available labs and notes reviewed. Discussed with the . Discussed with staff. No new events. REVIEW OF SYSTEMS: No new complaints, shortness of breath not significant, and no change from before. The patient is on BiPAP at night. No nausea, vomiting, fever, chills, chest pain or shortness of breath. OBJECTIVE: VITAL SIGNS: Temperature is 97.4, pulse is 60, respirations 20, and blood pressure 125/51. MEDICATIONS: Medication list is reviewed. From ID point of view, patient is on vancomycin IV after dialysis and off Zosyn. LABORATORY STUDIES: White count of 13.37, hemoglobin 10.4, platelet 225 from yesterday. Vancomycin trough was 18 on 08/21 and no new BMP from today. MICROBIOLOGY: Blood cultures negative. No new microbiology. GENERAL: Alert and oriented, no acute distress. CV: S1 and S2. CHEST: Equal expansion. Decreased breath sounds. No acute distress. ABDOMEN: Soft, obese, nontender. Positive bowel sounds. HEENT: Moist. No pallor. No JVD. EXTREMITIES: Multiple ischemic wounds of all extremity digits with a left foot worse than others. ASSESSMENT AND PLAN: 1. Sepsis on admission, resolved. 2. Osteomyelitis of feet. 3. Cellulitis. 4. Diabetes. 5. End-stage renal disease, on dialysis. 6. Congestive heart failure. 7. Sleep apnea, on BiPAP at night. The patient is currently on vancomycin IV, we will renew Zosyn and pending surgery today. Continue with wound care. Monitor the patient clinically. Follow up with the labs. Further management of this patient is based on daily findings on laboratory and physical examination, possible TMA today. Discussed with the in details. Questions answered. Please refer to chart for more information. Dictated by Jg Bernabe PA-C (Al) Veena Lubin MD /MODL /[id number]
--- NOTE | 2019-08-26 11:25 | NUR ---
YOLA TAKEN TO PACU PER OR'S REQUEST.
--- NOTE | 2019-08-26 14:30 | NUR ---
TALKED TO MIGNON WITH WOUND CARE ABOUT WOUND VAC ORDER. HE STATED THAT HE HAS ALREADY TALKED TO DR. WARE ABOUT CARE AND SETTING UP TO NEGATIVE PRESSURE 08/26.
--- NOTE | 2019-08-26 17:21 | NUR ---
Nutrition Intervention Note RD Recommendation(s) for Physician: -Recommend 1999 ADA, Renal diet restrictions -Continue Josh BID to promote wound healing -Recommend adding Vitamin C and Zinc Sulfate for wound healing Plan of Care: RD following, monitoring for tolerance and adequacy. Diet, ONS, vit/min rec's. Nutrition reason for involvement: follow up RD Assessment 08/25: Follow up. Pt discussed during am MDR. Pt s/p L trans met amputation with graft and I&D of R foot/heel to the bone today. Pt reports good appetite and intake, denies GI distress. Pt and at bedside with no questions at time of visit. Pt currently receiving Josh BID for wound healing. Chart reviewed. Will continue to monitor. (08/20/19) Pt is an 84 year old male admitted with severe sepsis. Spoke to pt and family member at time of visit. Pt reports a good appetite and it is recorded that pt is currently consuming 75-100% of meals. Pt was unsure of any recent weight changes and mentioned he usually weighs 280 lbs. Pt currently has a weight of 302 lbs in chart. No N/V/D/C or chewing/swallowing issues. Will continue to monitor unless consulted sooner Principal Problems/Diagnoses: severe sepsis PMH: right heel abscess, cellulitis, ESRD, diabetes GI: LBM 08/23; soft, non-tender, round abdomen Skin: sacral/gluteal area stage 2 pressure ulcer, L heel stage II, R hand 4th finger- necrotic, R foot- all toes black, necrotic Labs: 08/24: Na 138, K 4.1, BUN 30, Cr 4.44, Gluc 159, POC Gluc 137-236, Ca 9.4, Phos 2.6 (08/19) K 5.5, BUN 49, Cr 7.76, Glu 223 Meds: abx, gabapentin, protonix, synthroid, phoslo, insulin Ht: 69 inches Wt: 302 lbs BMI: 44.6 kg/m2 IBW: 160 lbs Malnutrition Evaluation (08/20/19) The patient does not meet criteria for a specified degree of malnutrition at this time. Will re-evaluate at follow-up as appropriate. Nutrition Prescription (Diet Order): NPO- surgery Estimated Nutritional Needs: 1085-7654 calories/day (22-25 kcal/kg IBW) 109-145 g protein/day (1.5-2 g pro/kg IBW) Diet Adequacy: Meeting calorie needs, Meeting protein needs Tolerance: Tolerating PO Diet Education Needs Assessment: Pt declined diet education materials at time of visit Nutrition Care Level: low (pt is eating well) Nutrition Diagnosis: Increased nutrient needs related to increased demand for protein and kcal as evidenced by stage 2 sacral/gluteal area pressure ulcer and multiple diabetic ulcers Goal: Patient will meet 75-100% of estimated needs by follow up Progress: goal met Interventions: -mineral and carbohydrate modified diet, Commercial beverage, Multivitamin/mineral therapy, Recommended Modifications Monitoring/Evaluation: -Total energy intake, Total protein intake, Formula Modified diet, Liquid supplement, Weight change Signed: Inez Aviles RD, LD, CNSC
--- NOTE | 2019-08-26 20:07 | Operative Report ---
DATE OF PROCEDURE: 08/26/2019 SURGEON: Senia Tobias DPM DIRECTOR OF RESIDENTIAL SERVICES: None. PREOPERATIVE DIAGNOSES: 1. Diabetic foot ulcer, grade 3 right heel. 2. Gangrene, diabetic foot ulcer grade 4, left forefoot. 3. Diabetes with neuropathy and PVD. 4. End-stage renal disease. PROCEDURE: 1. Excisional debridement to include bone of the right heel. 2. Left TMA with partial closure. ANESTHESIA: MAC anesthetic. HEMOSTASIS: None. ESTIMATED BLOOD LOSS: Less than 30 mL. COMPLICATIONS: None. CONDITION: Stable. PROCEDURE IN DETAIL: Under mild sedation, the patient was brought to the operating room, placed on the operating table in supine position. Following IV sedation, anesthesia was obtained with a MAC anesthetic. At this point, the right foot and the left was scrubbed, prepped, and draped in the usual aseptic manner. Attention was then directed to the right heel where utilizing a combination of a bone rongeur, a #15 blade and a curette, all nonviable tissue was removed before excisional debridement of that heel to include bone. The heel was about 70% granular, 30% fibrotic. After excision debridement, it was 100% granular. The area was then flushed with copious amount of irrigation with bacitracin and a pressure black powder glazing operator. Attention was then directed to the left, where a linear incision was made overlying the gangrenous forefoot. The incision was deepened down to the level of the metatarsals. A transmetatarsal amputation was then performed. All nonviable tissue was removed. Some of the plantar flex was compromised, but the plantar flap that was viable was then flapped dorsally. After the area was flushed with copious amount of normal sterile saline solution, all bleeders were cauterized. Surgicel and electrocautery was performed. A graft was then inserted into the wound at the right heel and at the left to promote healing of the diabetic wounds. Copious irrigation of the wounds was performed with a pressure black powder glazing operator. The TMA was then closed with a flap. Partially, the lateral aspect was left open secondary to the lack of viable tissue. Clean dressing was applied consisting of Xeroform to the right heel, Betadine wet-to-dry to the left, Kerlix, 4x4s and an Kelby bandage. The patient tolerated the procedure and anesthesia well, was readmitted back into the hospital. He is going to need aggressive local wound care on the right heel. The wound care is going to begin doing a nonstick three times a week on the left. On the left TMA, wound VAC will be applied. He is going to need IV antibiotics. The wound cultures were taken during surgery to the bone. He is going to continue to offload. He knows that this is strict limb salvage. If this fail, he is going to need a proximal amputation and he is aware of this. I will continue to follow. Thank you for letting me participate in the care of this patient. JANELLE Talavera/ALLEN /[id number]
[2019-08-26] MEDS: MONTELUKAST SODIUM 10 MG TAB PO SCH (21:00)
[2019-08-27] VITALS (7 sets, daily range): BP systolic 101–119; BP diastolic 40–52
[2019-08-27] MEDS: LEVOTHYROXINE SODIUM 88 MCG TAB PO SCH (05:26)
[2019-08-27 05:44] LABS: BASOPHILS # (AUTO) 0.1 (0.0-0.1); BASOPHILS % 0.8 % (0.0-1.0); EOSINOPHILS # (AUTO) 0.5 (0.0-0.4); EOSINOPHILS % 3.6 % (0.0-6.0); HEMOGLOBIN 9.2 g/dL (14.0-18.0); LYMPHOCYTES # (AUTO) 1.7 (1.0-3.2); MEAN CORPUSCULAR HEMOGLOBIN 26.7 pg (28-32); MEAN CORPUSCULAR HGB CONC 29.7 g/dL (31-35); MEAN CORPUSCULAR VOLUME 89.9 fL (81-99); MONOCYTES # (AUTO) 1.4 (0.2-0.8); MONOCYTES % 10.9 % (4.4-11.3); NEUTROPHILS # (AUTO) 9.3 (2.1-6.9); NEUTROPHILS % 70.8 % (38.7-80.0); PLATELET COUNT 245 x10e3/uL (140-360); RED BLOOD COUNT 3.45 x10e6/uL (4.3-5.7); RED CELL DISTRIBUTION WIDTH 18.6 % (11.7-14.4)
[2019-08-27 06:09] LABS: ALBUMIN 2.3 g/dL (3.5-5.0); ALBUMIN/GLOBULIN RATIO 0.5 (0.8-2.0); ANION GAP 16.1 mmol/L (8-16); CALCIUM 9.1 mg/dL (8.4-10.2); CREATININE, SERUM 7.34 mg/dL (0.72-1.25); MAGNESIUM 1.9 MG/DL (1.3-2.1); POTASSIUM 5.1 mmol/L (3.5-5.1)
[2019-08-27 06:46] LABS: HYPOCHROMASIA SLIGHT
[2019-08-27 06:47] LABS: ANISOCYTOSIS SLIGHT; POLYCHROMASIA FEW; RBC MORPHOLOGY COMMENT NORMAL
[2019-08-27 06:48] LABS: PLATELET ESTIMATE ADEQUATE; PLATELET MORPHOLOGY COMMENT NORMAL
--- NOTE | 2019-08-27 07:03 | NUR ---
Received patient lying in bed with eyes open. Spouse at bedside. Respiration even and unlabored without SOB. Call light in reach.
[2019-08-27] MEDS: INSULIN REGULAR, HUMAN 100 UNIT/1 ML 3ML VIAL SQ SCH ×4 (07:30→21:00)
[2019-08-27] MEDS: PANTOPRAZOLE SOD 40 MG TABEC PO SCH (07:41)
[2019-08-27] MEDS: GABAPENTIN 100 MG CAP PO SCH (07:41)
[2019-08-27] MEDS: CALCIUM ACETATE 667 MG GELCAP PO SCH ×3 (07:41→16:35)
[2019-08-27] MEDS: OLOPATADINE 5 ML BTL OP SCH ×2 (07:41→16:35)
[2019-08-27] MEDS: MIDODRINE 2.5 MG TAB PO SCH ×2 (07:52→16:36)
[2019-08-27] MEDS: NPH, HUMAN INSULIN ISOPHANE 100 UNIT/1 ML 3ML VIAL SQ SCH ×2 (07:53→16:46)
[2019-08-27] MEDS: BALSAM PERU/CASTOR OIL 60 GM OINT...G. TP SCH (10:15)
[2019-08-27] MEDS: PIPER-TAZ 3.375 GM 50 ML IV SCH ×2 (10:15→22:00)
--- NOTE | 2019-08-27 11:40 | Progress Note ---
DATE: SUBJECTIVE: The patient is seen and evaluated. Available labs and notes reviewed. Discussed with Dr. Lubin in details. REVIEW OF SYSTEMS: No nausea, vomiting, fever, chills, chest pain, shortness of breath, headache, rash, dysuria also discussed with the . No new complaints. OBJECTIVE: VITAL SIGNS: Temperature is 97.6, pulse is 56, respiration 20, and blood pressure 101/41. GENERAL: Alert and oriented, on BiPAP. Dialysis in the room. Alert and oriented, responds by nodding head. is in the room. No new complaints. CV: S1-S2. CHEST: Equal expansion. Decreased breath sounds. No acute distress. ABDOMEN: Soft, obese, and nontender. Positive bowel sounds. HEENT: Moist. No pallor. No JVD. EXTREMITIES: Left foot dressed and the right foot dressed. MEDICATIONS: Medication list reviewed as far as Infectious Disease point of view, the patient is on Zosyn and vancomycin. LABORATORY STUDIES: White count of 13.21. No significant change from yesterday, hemoglobin 9.2, platelets 245. Sodium 137, potassium 5.1, creatinine 7.34. The patient on dialysis. Serology: Coronavirus PCR, 08/13 and 08/22, not detected. MICROBIOLOGY: Blood culture negative on 08/13. Wound culture from operating room showed gram-positive rods on a Gram stain with the culture and sensitivity pending. IMAGING: There are no new radiology studies available. ASSESSMENT AND PLAN: 1. Multiple ischemic process of all extremities digits with the left foot worse than all. 2. Osteomyelitis of the foot. 3. Cellulitis. 4. Sepsis on admission, resolved. 5. End-stage renal disease. 6. Congestive heart failure. 7. Sleep apnea. 8. Status post surgical procedure of the left foot. 9. Status post excisional debridement to include bone of the right heel and left TMA with partial closure by Dr. Tobias on 08/26/2019. We will follow up with the cultures. We will continue with antibiotics. The patient is on BiPAP at times. Arterial workup was positive for possible significant stenosis bilaterally. Discussed with the . The plan is to go to [facility] for continuation of his medical care and receives some advanced PT/OT. Discussed with the patient. Continue to monitor the patient clinically, follow with the labs. Continue with the wound care. Further management of this patient is based on daily findings on laboratory and physical examination. Please refer to chart for more information. Discussed with Dr. Lubin in details. Dictated by Jg Garces) EDIS Bernabe Veena Lubin MD /ALLEN /[id number]
[2019-08-27] MEDS: EPOETIN ALFA-EPBX 10,000 UNIT/ML VIAL SC SCH (12:20)
--- NOTE | 2019-08-27 13:45 | NUR ---
WOUND CARE CONSULT FOR POST SURGICAL PLACEMENT OF NEGATIVE PRESSURE TO LEFT TRANSMET AMP SITE BLACK FOAM PLACED OVER XEROFORM GAUZE TO 12CM STAPLE LINE AND 3.8CM X 5CM X 3CM OPEN PLANTAR SURFACE FULL THICKNESS WOUND JUANY SKIN DRAPED AND PROTECTED 120MMHG CONTINUOUS NEGATIVE PRESSURE SET AND MAINTAINED NO C/O PAIN OR DISCOMFORT NOTED OR EXPRESSED BY PATIENT RIGHT HEEL GRAFT SITE HAS DRESSING REMOVED AND LIGHTLY CLEANED WITH NS GRAFT REMAINS INTACT XEROFORM GAUZE REPLACED COVERED WITH 4X4 ABD LIGHTLY WRAPPED WITH CAST PADDING TO SECURE Addendum: 08/27/19 at 1352 by Luan Purvis RN Amended: Links added.
[2019-08-27] MEDS: VANCOMYCIN 500MG/NS 0.9% 100ML 100 ML IV SCH (14:54)
--- NOTE | 2019-08-27 16:22 | NUR ---
Spoke with pt and at bedside regarding dc plan. Pt's states they live at home with daughter and granddaughter, but they are unable to help all the time. Thinks pt would benefit from going to rehab prior to coming home. Pt is agreeable to SNF/inpatient rehab. Pending PT eval for recommendations. Case management will follow up on recommendations/order and choice.
--- NOTE | 2019-08-27 19:51 | NUR ---
Bedside report given to night nurse. Patient awake, alert, respiration even and unlabored without SOB. at bedside. Call light in reach.
[2019-08-27] MEDS: MONTELUKAST SODIUM 10 MG TAB PO SCH (21:30)
[2019-08-28] VITALS (8 sets, daily range): BP systolic 114–131; BP diastolic 43–62
[2019-08-28] MEDS: LEVOTHYROXINE SODIUM 88 MCG TAB PO SCH (06:25)
--- NOTE | 2019-08-28 07:00 | NUR ---
received bedside report. pt is alert resting in bed, no s/s of distress. pt has bipap mask on. is at the bedside.
[2019-08-28] MEDS: CALCIUM ACETATE 667 MG GELCAP PO SCH ×3 (08:39→16:28)
[2019-08-28] MEDS: PANTOPRAZOLE SOD 40 MG TABEC PO SCH (08:39)
[2019-08-28] MEDS: MIDODRINE 2.5 MG TAB PO SCH ×2 (08:39→16:29)
[2019-08-28] MEDS: GABAPENTIN 100 MG CAP PO SCH (08:39)
[2019-08-28] MEDS: PIPER-TAZ 3.375 GM 50 ML IV SCH ×2 (08:39→21:48)
[2019-08-28] MEDS: INSULIN REGULAR, HUMAN 100 UNIT/1 ML 3ML VIAL SQ SCH ×4 (09:58→21:47)
[2019-08-28] MEDS: NPH, HUMAN INSULIN ISOPHANE 100 UNIT/1 ML 3ML VIAL SQ SCH ×2 (09:58→16:36)
[2019-08-28] MEDS: OLOPATADINE 5 ML BTL OP SCH ×2 (10:06→16:28)
[2019-08-28] MEDS: BALSAM PERU/CASTOR OIL 60 GM OINT...G. TP SCH (10:45)
--- NOTE | 2019-08-28 11:18 | NUR ---
transferred care to CANDICE SANTANA. pt is alert, no s/s of distress. is at the bedside
--- NOTE | 2019-08-28 11:39 | Progress Note ---
DATE: SUBJECTIVE: The patient seen and evaluated. Available labs and notes reviewed. Discussed with Dr. Lubin, please refer to chart for more information. Discussed with the patient and his . REVIEW OF SYSTEMS: No nausea, vomiting, fever, chills, chest pain, shortness of breath, headache, rash, dysuria, polyuria, or cough. PHYSICAL EXAMINATION: VITAL SIGNS: Temperature 98.8, pulse 71, respirations 16, and blood pressure 158/86. MEDICATIONS: The patient is on vancomycin IV and Zosyn. LABORATORY STUDIES: White count of 13.21, hemoglobin 9.2, and platelets 245. No new CBC or BMP. Toxicology, vancomycin trough is 18 on 08/21. Serology, no new serology available. MICROBIOLOGY: Wound culture shows Pseudomonas, multidrug resistant; however, sensitive to Zosyn. Other antibiotic it sensitive to are amikacin, meropenem, ciprofloxacin, and Azactam. Also, showed Staph aureus, Enterococcus species and gram-negative specialized x2 with identification, sensitivity pending. IMAGING DATA: No new radiology studies available. PHYSICAL EXAMINATION: GENERAL: Alert and oriented, in no acute distress, currently on BiPAP; responds appropriately. CV: S1, S2. CHEST: Equal expansion. Clear to auscultation, in no acute distress. ABDOMEN: Soft, nontender. No distention. HEENT: Moist. No pallor. No JVD. EXTREMITIES: Treated with surgical dressing. ASSESSMENT AND PLAN: 1. Multiple ischemic digits of all extremities. 2. Osteomyelitis of the foot. 3. Cellulitis. 4. Sepsis on admission, resolved. 5. Congestive heart failure. 6. Sleep apnea - on BiPAP. 7. End-stage renal disease - dialysis. 8. Status post incision and drainage of the right heel and the left TMA with partial closure by Dr. Jaimes on 08/26/2019. Continue with local care. Continue with antibiotics. Follow with the wound cultures. Continue with BiPAP. Follow with the labs. Monitor the patient clinically, possibly to another facility for rehab and antibiotics and wound care. Please refer to chart for more information. Discussed with Dr. Lubin and the patient's in detail. Dictated by Jg Bernabe PA-C (Al) Veena Lubin MD /FRANCISCOL /[id number]
[2019-08-28] MEDS ORDERED: EPOETIN ALFA-EPBX 10,000 UNIT/ML VIAL SC ONE (14:00)
--- NOTE | 2019-08-28 19:28 | NUR ---
WALKING ROUNDS COMPLETE, REPORT GIVEN TO ONCOMING NURSE.
[2019-08-28] MEDS: MONTELUKAST SODIUM 10 MG TAB PO SCH (21:48)
[2019-08-28] MEDS ORDERED: SODIUM CHLORIDE 0.9% 250ML 250 ML ONE (22:12)
[2019-08-29] VITALS (10 sets, daily range): BP systolic 100–125; BP diastolic 44–96
--- NOTE | 2019-08-29 00:27 | Consultation ---
DATE OF CONSULTATION: 08/28/2019 REASON FOR CONSULTATION: 1. Left TMA secondary to wound with a partial closure. 2. Excisional debridement with of the right heel. 3. Diabetes. 4. Diabetic neuropathy. 5. Obesity. HISTORY: Mr. Morgan is an 84-year-old male who is not new from his previous stays over at [facility] for inpatient rehab. The patient was admitted here at this time after being discharged from a [facility]dc facility a month ago. He comes in with gangrene to both feet and underwent the above procedure. I am being asked to evaluate for rehab needs. PAST MEDICAL HISTORY: Includes right heel abscess, cellulitis, pneumonia, new end-stage renal disease, on hemodialysis, diabetes, COPD, and aspiration pneumonia. He has neck arthritis. He has gangrene to the 4th digit of the right hand. ALLERGIES: CEFTRIAXONE. FAMILY HISTORY: Positive for diabetes. SOCIAL HISTORY: Lives with his in a one-natalia home, he was pretty much in electric scooter, but he has had decline in function overall. FAMILY HISTORY: Noncontributory. PHYSICAL EXAMINATION: GENERAL: The patient is awake and alert. He is lying in bed. is at the bedside. In no apparent distress. Has a dressing on the left TMA site and some dressing at the right heel. He has limited active movement to the arms. His neck still sore. His 4th digit right hand is gangrenous distally. He has some changes in the skin to the toes of the right foot. Manual muscle testing demonstrates shoulder flexion extension, elbow flexion extension, chair is 3+/5. Strength flexion extension is 0/5 strength with achievable range of motion. is negative on the right. IMPRESSION: 1. Status post left TMA secondary to gangrene. 2. Right heel wound. 3. Diabetic neuropathy. 4. Peripheral vascular disease. 5. Obesity. 6. Gangrene to the 4th digit of the right hand. PLAN: The last time he was on inpatient rehab. The patient really did not tolerate therapy. He has actually before and he tells me right now, he would rather not go to rehab. Based on our experiences from before, it would be appropriate for him not to go to rehab, because he most likely will not participate in a full therapy and he admits this. They are not happy with skilled, but his cannot take care of him. So therefore, they will with any skilled facility because he needs wound care management, he needs some activity to try to improve his functional level. Discussed with patient and , they are agreeable. Thank you once again for allowing participate in the care of this pleasant, but unfortunate patient. Leonel Barrera DO RPL/FRANCISCOL /[id number]
[2019-08-29] MEDS: LEVOTHYROXINE SODIUM 88 MCG TAB PO SCH (05:50)
[2019-08-29] MEDS: CALCIUM ACETATE 667 MG GELCAP PO SCH ×3 (08:29→16:19)
[2019-08-29] MEDS: MIDODRINE 2.5 MG TAB PO SCH ×2 (08:32→16:24)
[2019-08-29] MEDS: PANTOPRAZOLE SOD 40 MG TABEC PO SCH (08:33)
[2019-08-29] MEDS: GABAPENTIN 100 MG CAP PO SCH (08:33)
[2019-08-29] MEDS: OLOPATADINE 5 ML BTL OP SCH ×2 (08:41→16:23)
[2019-08-29] MEDS: BALSAM PERU/CASTOR OIL 60 GM OINT...G. TP SCH (09:51)
[2019-08-29] MEDS: NPH, HUMAN INSULIN ISOPHANE 100 UNIT/1 ML 3ML VIAL SQ SCH ×2 (09:54→17:10)
[2019-08-29] MEDS: INSULIN REGULAR, HUMAN 100 UNIT/1 ML 3ML VIAL SQ SCH ×4 (09:54→21:54)
--- NOTE | 2019-08-29 10:34 | Progress Note ---
DATE: 08/29/2019 SUBJECTIVE: The patient was seen at bedside. The plantar flap appears to be viable at this point. The erythema and edema are localized, all consistent to the level of surgical intervention. The right heel is granular about 90%. No streaking erythema. No ascending lymphangitis. Pedal pulses diminished. Protective threshold absent, intrinsic minus type of foot. No abscess palpable. Negative Homans signs bilaterally. His bone cultures and sensitivities from surgery grew Pseudomonas, E coli, Staph and VRE. He is currently on treatment by Infectious Disease. ASSESSMENT: 1. Diabetic foot ulcer, grade 3, right heel. 2. Status post transmetatarsal amputation, left. 3. 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 PLAN: Discussed treatment with the patient at this point, my recommendation is going to be to continue aggressive local wound care. The wound VAC to the left and Xeroform to the right. The wound is healing, is being offloaded. He is currently on IV antibiotic. He knows they are going to need treatment for that infection. Possible transfer to SNF next week while they find placement for him, pending placement for him. I will continue to follow. Thank you for letting me participate in the care of this patient. JANELLE Talavera/ALLEN /[id number]
--- NOTE | 2019-08-29 11:03 | NUR ---
GOT CHOICE FOR SNF, SIGNED FOR [facility]. FILED IN CHART, COMPLETED PASRR AND COVID FORM, SENT TO FACILITY. SPOKE WITH WOUND CARE, IT WILL BE CHANGED TO A DRESSING INSTEAD OF A WOUND VAC.
[2019-08-29] MEDS: LINEZOLID 600 MG/D5W 300ML 300 ML IV SCH ×2 (11:55→21:54)
[2019-08-29] MEDS: PIPER-TAZ 3.375 GM 50 ML IV SCH ×2 (11:55→21:54)
--- NOTE | 2019-08-29 12:30 | Progress Note ---
DATE: SUBJECTIVE: The patient is seen and evaluated. Discussed with the . Discussed with wound care. Discussed with case management. REVIEW OF SYSTEMS: No nausea, vomiting, fever, chills, chest pain, shortness of breath, headache, rash, dysuria. Pain is controlled. OBJECTIVE: VITAL SIGNS: Temperature is 97.7, pulse is 62, respirations 20, and blood pressure 122/53, temperature reviewed. Patient remains afebrile. GENERAL: Alert and oriented, on BiPAP. Wound care and case management in the room. is in the room. Getting wound VAC exchanged. CV: S1 and S2. CHEST: Equal expansion. No acute distress. ABDOMEN: Soft, nontender, obese. Bowel sounds positive. HEENT: Moist. No pallor. No JVD. EXTREMITIES: Multiple ischemic process of all digits with the left foot being worse, status post TMA with open wound on wound VAC. MEDICATIONS/ANTIBIOTICS: Reviewed. As far as Infectious Disease point of view, patient is on Zosyn and vancomycin IV. LABORATORY STUDIES: White count of 13.21, which is not new. Hemoglobin 9.2, platelet 245. The patient is on dialysis. No new CBC or BMP available. Foot cultures reviewed showing VRE x2, E. coli, which is sensitive to Zosyn and Pseudomonas aeruginosa, which is sensitive to Zosyn. The patient also has staphylococcus aureus with sensitivity pending. RADIOLOGY STUDIES: No new radiology study is available. ASSESSMENT AND PLAN: 1. Multiple ischemic digits of all extremities with the left foot being the worse. 2. Osteomyelitis of the left foot. 3. Cellulitis. 4. Sepsis on admission, resolved. 5. End-stage renal disease, on dialysis. 6. Sleep apnea, on BiPAP. 7. Congestive heart failure. 8. Obesity and debility-patient is mostly bedbound. 9. The patient is status post left TMA and partial closure of the wound on 08/26/[address] Jaimes. The wound is open partially and the patient is receiving wound VAC and local care. Cultures as mentioned above. Please refer to chart for antibiotic. Continue with the Wound Care. Continue with PT/OT. Continue with the BiPAP as patient needs it. Discharge planning noted to senior living facility. Discussed with Dr. Lubin in details. Please refer to chart for more information. Dictated by Jg Bernabe PA-C (Al) MD OSCAR Wagner/ALLEN /[id number]
--- NOTE | 2019-08-29 13:59 | NUR ---
CORRECTION FACILITY DISCHARGE INFORMATION PATIENT HAS BEEN ACCEPTED TO: NAME: [facility] ADDRESS: [id number] ACCEPTING MD: JOY ROOM: 112 NURSE CALL REPORT TO: [phone] IMM SIGNED AND OBTAINED (if applicable): IMM THE FOLLOWING DOCUMENTS MUST ACCOMPANY PATIENT FOR TRANSFER: COPIED CHART: PACKET
--- NOTE | 2019-08-29 14:03 | NUR ---
AT FACILITY WILL BE ALECIA
[2019-08-29] MEDS: EPOETIN ALFA-EPBX 10,000 UNIT/ML VIAL SC SCH (14:17)
--- NOTE | 2019-08-29 17:29 | NUR ---
PATIENT FEELS A LITTLE NAUSEATED, REQUESTED DIET SPRITE, SAME GIVEN
[2019-08-29] MEDS: MONTELUKAST SODIUM 10 MG TAB PO SCH (21:54)
[2019-08-30] VITALS (8 sets, daily range): BP systolic 116–140; BP diastolic 39–70
[2019-08-30] MEDS: LEVOTHYROXINE SODIUM 88 MCG TAB PO SCH (06:03)
[2019-08-30] MEDS: PANTOPRAZOLE SOD 40 MG TABEC PO SCH (07:56)
[2019-08-30] MEDS: OLOPATADINE 5 ML BTL OP SCH ×2 (07:56→17:42)
[2019-08-30] MEDS: GABAPENTIN 100 MG CAP PO SCH (07:56)
[2019-08-30] MEDS: BALSAM PERU/CASTOR OIL 60 GM OINT...G. TP SCH (07:56)
[2019-08-30] MEDS: CALCIUM ACETATE 667 MG GELCAP PO SCH ×3 (07:56→17:43)
[2019-08-30] MEDS: MIDODRINE 2.5 MG TAB PO SCH ×2 (08:50→16:50)
[2019-08-30] MEDS: INSULIN REGULAR, HUMAN 100 UNIT/1 ML 3ML VIAL SQ SCH ×4 (09:09→21:30)
[2019-08-30] MEDS: PIPER-TAZ 3.375 GM 50 ML IV SCH ×2 (09:25→21:30)
[2019-08-30] MEDS: NPH, HUMAN INSULIN ISOPHANE 100 UNIT/1 ML 3ML VIAL SQ SCH ×2 (09:44→17:42)
[2019-08-30] MEDS: LINEZOLID 600 MG/D5W 300ML 300 ML IV SCH ×2 (11:03→22:28)
[2019-08-30] MEDS ORDERED: SODIUM CHLORIDE 0.9% 250ML 250 ML ONE (12:01)
--- NOTE | 2019-08-30 19:10 | NUR ---
Patient visited in room during nursing rounds. Patient alert and oriented x3. Pt at bedside. On Contact Isolation for MRSA and VRE infection of left foot wound. Pt has generalized weakness and is on bedrest. Pt is a dialysis pt with Right upper arm AV fistula access. Pt wears Bipap tonight. On IV antibiotic treatment as scheduled. Wound VAC on left foot wound. Right and Left fingers and toes are necrotic. Call pena within reach. Bed alarm active.
[2019-08-30] MEDS: MONTELUKAST SODIUM 10 MG TAB PO SCH (21:30)
[2019-08-31] VITALS (8 sets, daily range): BP systolic 111–143; BP diastolic 52–65
[2019-08-31] MEDS: LEVOTHYROXINE SODIUM 88 MCG TAB PO SCH (06:10)
[2019-08-31] MEDS: CALCIUM ACETATE 667 MG GELCAP PO SCH ×3 (06:10→16:37)
[2019-08-31] MEDS: OLOPATADINE 5 ML BTL OP SCH ×2 (08:23→16:37)
[2019-08-31] MEDS: GABAPENTIN 100 MG CAP PO SCH (08:23)
[2019-08-31] MEDS: MIDODRINE 2.5 MG TAB PO SCH ×2 (08:24→16:38)
[2019-08-31] MEDS: BALSAM PERU/CASTOR OIL 60 GM OINT...G. TP SCH (08:24)
[2019-08-31] MEDS: PANTOPRAZOLE SOD 40 MG TABEC PO SCH (08:24)
[2019-08-31] MEDS: NPH, HUMAN INSULIN ISOPHANE 100 UNIT/1 ML 3ML VIAL SQ SCH ×2 (10:21→17:06)
[2019-08-31] MEDS: PIPER-TAZ 3.375 GM 50 ML IV SCH ×2 (11:38→22:05)
[2019-08-31] MEDS: LINEZOLID 600 MG/D5W 300ML 300 ML IV SCH ×2 (11:38→23:00)
[2019-08-31] MEDS: INSULIN REGULAR, HUMAN 100 UNIT/1 ML 3ML VIAL SQ SCH ×4 (12:21→20:56)
[2019-08-31] MEDS: MONTELUKAST SODIUM 10 MG TAB PO SCH (20:56)
[2019-08-31] MEDS ORDERED: SODIUM CHLORIDE 0.9% 250ML 250 ML ONE (21:52)
[2019-09-01 00:27] VITALS: BP 153/49
[2019-09-01 04:54] VITALS: BP 130/51
[2019-09-01] MEDS: LEVOTHYROXINE SODIUM 88 MCG TAB PO SCH (06:02)
[2019-09-01] MEDS: CALCIUM ACETATE 667 MG GELCAP PO SCH ×2 (06:02→11:31)
[2019-09-01 07:53] VITALS: BP 130/51
[2019-09-01 08:00] VITALS: BP 115/34
[2019-09-01] MEDS: PANTOPRAZOLE SOD 40 MG TABEC PO SCH (08:32)
[2019-09-01] MEDS: NPH, HUMAN INSULIN ISOPHANE 100 UNIT/1 ML 3ML VIAL SQ SCH (08:32)
[2019-09-01] MEDS: GABAPENTIN 100 MG CAP PO SCH (08:32)
[2019-09-01] MEDS: MIDODRINE 2.5 MG TAB PO SCH (08:32)
[2019-09-01] MEDS: INSULIN REGULAR, HUMAN 100 UNIT/1 ML 3ML VIAL SQ SCH ×2 (08:33→15:14)
[2019-09-01] MEDS ORDERED: SODIUM CHLORIDE 0.9% 1000ML 2,000 ML ONE (08:37)
[2019-09-01] MEDS: OLOPATADINE 5 ML BTL OP SCH (09:00)
[2019-09-01] MEDS: BALSAM PERU/CASTOR OIL 60 GM OINT...G. TP SCH (09:00)
[2019-09-01 09:03] LABS: BASOPHILS # (AUTO) 0.1 (0.0-0.1); EOSINOPHILS # (AUTO) 0.7 (0.0-0.4); HEMATOCRIT 32.6 % (38.2-49.6); HEMOGLOBIN 9.7 g/dL (14.0-18.0); LYMPHOCYTES # (AUTO) 1.8 (1.0-3.2); LYMPHOCYTES % 13.4 % (18.0-39.1); MEAN CORPUSCULAR HEMOGLOBIN 26.9 pg (28-32); MEAN CORPUSCULAR HGB CONC 29.8 g/dL (31-35); MEAN CORPUSCULAR VOLUME 90.3 fL (81-99); MONOCYTES # (AUTO) 1.3 (0.2-0.8); MONOCYTES % 9.2 % (4.4-11.3); NEUTROPHILS # (AUTO) 9.6 (2.1-6.9); NEUTROPHILS % 70.7 % (38.7-80.0); PLATELET COUNT 238 x10e3/uL (140-360); RED BLOOD COUNT 3.61 x10e6/uL (4.3-5.7); RED CELL DISTRIBUTION WIDTH 18.5 % (11.7-14.4)
[2019-09-01 09:22] LABS: ANION GAP 18.6 mmol/L (8-16); CALCIUM 9.7 mg/dL (8.4-10.2); CREATININE, SERUM 8.18 mg/dL (0.72-1.25); POTASSIUM 4.6 mmol/L (3.5-5.1)
--- NOTE | 2019-09-01 11:19 | NUR ---
IMM letter delivered and explained to pt's at bedside. She verbalized understanding. Signed copy placed in chart. Copy to . Per KAREN Davis, change abx to Zyvox 600mg PO BID x 4 weeks and change Zosyn to Cefepime 1gm IV qd x 4 weeks. DYLAN Mcpherson with [facility] were notified of changes. CANDICE Vail updated as well.
[2019-09-01 11:53] VITALS: BP 164/75
[2019-09-01] MEDS ORDERED: LINEZOLID 600 MG TAB PO SCH (12:00)
--- NOTE | 2019-09-01 12:52 | Progress Note ---
DATE: SUBJECTIVE: The patient was seen and evaluated. Discussed with the . Dialysis, currently in a room. REVIEW OF SYSTEMS: No nausea, vomiting, fever, chills, chest pain, shortness of breath, headache, rash, or dysuria. OBJECTIVE: VITAL SIGNS: Temperature 97.8, pulse 66, respirations 24, blood pressure 115/43. GENERAL: Alert and oriented, comfortable in bed on BiPAP, which he uses on a regular basis. Dialysis in his room. CV: S1 and S2. CHEST: Equal expansion. Clear to auscultation. No acute distress. ABDOMEN: Soft, nontender. No distention. HEENT: Moist. No pallor. No JVD. EXTREMITIES: Treated wounds on local care. MEDICATIONS: Medication list reviewed from Infectious Disease point of view. The patient is on Zyvox and Zosyn. LABORATORY DATA: Showed white blood cells 13.64, hemoglobin 9.7, platelets 238. Sodium 136, potassium 4.6, creatinine 8.18. The patient is on dialysis. MICROBIOLOGY: No new microbiology studies available. Previous microbiology studies of left foot bone culture showed Pseudomonas, multidrug resistance, E. coli, MRSA and VRE x2. RADIOLOGY STUDIES: No radiology studies available. ASSESSMENT AND PLAN: 1. Multiple ischemic digits on all extremities. 2. Osteomyelitis of the left foot. 3. Cellulitis of the left foot. 4. Sepsis on admission, resolved. 5. Sleep apnea on chronic BiPAP as needed. 6. Congestive heart failure. 7. End-stage renal disease, currently with dialysis. 8. Obesity and debility-the patient is mostly in bed recently, but he has a wheelchair that he gets on occasionally. We continue with antibiotics change Zosyn to cefepime, which culture reviewed again. Discharge planning in progress to [facility] facility. Continue with Zyvox and can be changed to Zyvox p.o. for 4 weeks and cefepime 1 g a day for 4 weeks. Further management of this patient is based on daily findings on laboratory and physical examination. Dictated by Jg Bernabe PA-C (Al) Veena Lubin MD /MODL /[id number]
[2019-09-01] MEDS ORDERED: CEFEPIME 1GM/NS 0.9% 50 ML 50 ML IV SCH (14:00)
--- NOTE | 2019-09-01 15:00 | NUR ---
Wound vac was removed from left foot per podiatry's order for discharge. All wound care was completed per orders. The patient and his are aware of the transfer and are in agreement with the plan of care.
[2019-09-01 16:00] VITALS: BP 124/54
[2019-09-01] MEDS ORDERED: SODIUM CHLORIDE 0.9% 250ML 250 ML ONE (18:05)
[2019-09-01] MEDS ORDERED: PIPER-TAZ 3.375 GM 50 ML IV SCH (21:00)
== END 2019-09-01 16:29 | DRG 853 ==
LOC: ER 09:56 → ERHOLD 11:52 → IMCU 23:05 → MED/SURG2 08-15 17:23
PROVIDERS: ADMIT Internal Medicine; ATTEND Internal Medicine
PROC: 5A1D70Z Performance of Urinary Filtration, Intermittent, Less than 6 Hours Per Day (ICD-10-PCS; 2019-08-14)
PROC: 5A1D70Z Performance of Urinary Filtration, Intermittent, Less than 6 Hours Per Day (ICD-10-PCS; 2019-08-16)
PROC: 5A1D70Z Performance of Urinary Filtration, Intermittent, Less than 6 Hours Per Day (ICD-10-PCS; 2019-08-18)
PROC: 5A1D70Z Performance of Urinary Filtration, Intermittent, Less than 6 Hours Per Day (ICD-10-PCS; 2019-08-20)
PROC: 5A1D70Z Performance of Urinary Filtration, Intermittent, Less than 6 Hours Per Day (ICD-10-PCS; 2019-08-22)
PROC: 30233N1 Transfusion of Nonautologous Red Blood Cells into Peripheral Vein, Percutaneous Approach (ICD-10-PCS; 2019-08-22)
PROC: 5A1D70Z Performance of Urinary Filtration, Intermittent, Less than 6 Hours Per Day (ICD-10-PCS; 2019-08-25)
PROC: 0Y6N0ZB Detachment at Left Foot, Partial 2nd Ray, Open Approach (ICD-10-PCS; 2019-08-26)
PROC: 0Y6N0ZC Detachment at Left Foot, Partial 3rd Ray, Open Approach (ICD-10-PCS; 2019-08-26)
PROC: 0Y6N0ZD Detachment at Left Foot, Partial 4th Ray, Open Approach (ICD-10-PCS; 2019-08-26)
PROC: 0Y6N0ZF Detachment at Left Foot, Partial 5th Ray, Open Approach (ICD-10-PCS; 2019-08-26)
PROC: 0QBL0ZZ Excision of Right Tarsal, Open Approach (ICD-10-PCS; principal; 2019-08-26 12:00)
PROC: 0Y6N0Z9 Detachment at Left Foot, Partial 1st Ray, Open Approach (ICD-10-PCS; 2019-08-26 12:00)
PROC: 5A1D70Z Performance of Urinary Filtration, Intermittent, Less than 6 Hours Per Day (ICD-10-PCS; 2019-08-27)
PROC: 5A1D70Z Performance of Urinary Filtration, Intermittent, Less than 6 Hours Per Day (ICD-10-PCS; 2019-08-29)
PROC: 5A1D70Z Performance of Urinary Filtration, Intermittent, Less than 6 Hours Per Day (ICD-10-PCS; 2019-09-01)
DX: A41.9 Sepsis, unspecified organism (principal); N18.6 End stage renal disease; E11.52 Type 2 diabetes mellitus with diabetic peripheral angiopathy with gangrene; I96 Gangrene, not elsewhere classified; Z68.41 Body mass index [BMI] 40.0-44.9, adult; N39.0 Urinary tract infection, site not specified; I48.20 Chronic atrial fibrillation, unspecified; L97.414 Non-pressure chronic ulcer of right heel and midfoot with necrosis of bone; L97.528 Non-pressure chronic ulcer of other part of left foot with other specified severity; L03.116 Cellulitis of left lower limb; L03.115 Cellulitis of right lower limb; Z16.22 Resistance to vancomycin related antibiotics; M86.672 Other chronic osteomyelitis, left ankle and foot; M86.671 Other chronic osteomyelitis, right ankle and foot; I13.2 Hypertensive heart and chronic kidney disease with heart failure and with stage 5 chronic kidney disease, or end stage renal disease; E11.22 Type 2 diabetes mellitus with diabetic chronic kidney disease; Z99.2 Dependence on renal dialysis; Z82.49 Family history of ischemic heart disease and other diseases of the circulatory system; E66.01 Morbid (severe) obesity due to excess calories; D64.9 Anemia, unspecified; G47.33 Obstructive sleep apnea (adult) (pediatric); Z87.01 Personal history of pneumonia (recurrent); Z83.3 Family history of diabetes mellitus; M79.5 Residual foreign body in soft tissue; E11.42 Type 2 diabetes mellitus with diabetic polyneuropathy; E11.621 Type 2 diabetes mellitus with foot ulcer; Z11.59 Encounter for screening for other viral diseases; E03.9 Hypothyroidism, unspecified; R53.1 Weakness; B96.20 Unspecified Escherichia coli [E. coli] as the cause of diseases classified elsewhere; B96.5 Pseudomonas (aeruginosa) (mallei) (pseudomallei) as the cause of diseases classified elsewhere; B95.62 Methicillin resistant Staphylococcus aureus infection as the cause of diseases classified elsewhere; E87.70 Fluid overload, unspecified; I83.12 Varicose veins of left lower extremity with inflammation; I83.11 Varicose veins of right lower extremity with inflammation; Z96.82 Presence of neurostimulator; R53.81 Other malaise; D63.8 Anemia in other chronic diseases classified elsewhere; D50.0 Iron deficiency anemia secondary to blood loss (chronic); E11.69 Type 2 diabetes mellitus with other specified complication; I50.9 Heart failure, unspecified; Z79.4 Long term (current) use of insulin
CPT/HCPCS: 36415; 71045; 80048; 80053; 80202; 81001; 82550; 82553; 82948; 83605; 83735; 84100; 84132; 84484; 85014; 85025; 85610; 86706; 86850; 86900; 86920; 87040; 87071; 87075; 87186; 87205; 87340; 87635; 88304; 88311; 93925; 96360; 97139; 97605; 99251; 99284; J1817; J2020; J2270; J2405; J2543; J2710; J3370; J7030; J7050; P9016; Q4150

== ENCOUNTER 2019-09-18 22:25 | Inpatient (IN) | payer MEDICARE, OTHER ==
[~2019-09-18] VITALS: Ht 327.7 cm; Wt 118.8 kg
--- NOTE | 2019-09-18 22:50 | NUR ---
PT IS TRANSFERRED FROM [facility] .PT IS AOX3 RESPIRATIONS ARE EVEN AND UNLABORED .PT HAS LEFT UPPER ARM MIDLINE AND RT ARM AV GRAFT FOR DIALYSIS LEFT FOOT GANGRENE AND AMPUTATED ALL TOES FROM THE LEFT FOOT .RT HELL WOUND RT HAND 3RD AND 4TH FINGER WOUND.[facility] .DENIES PAIN .PT HAS C-PAP .ORIENTED THE PT TO THE ENVIRONMENT .PT HAD ZOSYN AND ZYVOX AT THE [facility] ,CALL LIGHT WITH IN REACH ,CONTINUE TO MONITOR
[2019-09-18] MEDS: PIPER-TAZ 3.375 GM 50 ML IV SCH (23:38)
[2019-09-18] MEDS: LINEZOLID 600 MG TAB PO SCH (23:39)
[2019-09-19] VITALS (10 sets, daily range): BP systolic 109–166; BP diastolic 51–91
[2019-09-19] MEDS ORDERED: DEXTROSE 50% SYRINGE 50 ML IV PRN ×7 (01:15→02:00)
[2019-09-19] MEDS ORDERED: CITALOPRAM HBR20 MG PO (02:08)
[2019-09-19] MEDS ORDERED: ACETAMINOP325 MG/10 PO (02:08)
[2019-09-19] MEDS: LEVOTHYROXINE SODIUM 88 MCG TAB PO SCH (05:55)
--- NOTE | 2019-09-19 06:18 | NUR ---
CALLED KERRI AND DR HERNANDEZ .WAITING FOR THE RETURN CALL
[2019-09-19 06:45] LABS: BASOPHILS # (AUTO) 0.1 (0.0-0.1); BASOPHILS % 0.8 % (0.0-1.0); EOSINOPHILS # (AUTO) 0.6 (0.0-0.4); EOSINOPHILS % 6.6 % (0.0-6.0); HEMATOCRIT 33.6 % (38.2-49.6); HEMOGLOBIN 9.9 g/dL (14.0-18.0); LYMPHOCYTES # (AUTO) 1.5 (1.0-3.2); LYMPHOCYTES % 18.2 % (18.0-39.1); MEAN CORPUSCULAR HEMOGLOBIN 27.8 pg (28-32); MEAN CORPUSCULAR HGB CONC 29.5 g/dL (31-35); MEAN CORPUSCULAR VOLUME 94.4 fL (81-99); NEUTROPHILS # (AUTO) 5.2 (2.1-6.9); RED BLOOD COUNT 3.56 x10e6/uL (4.3-5.7); RED CELL DISTRIBUTION WIDTH 20.4 % (11.7-14.4)
[2019-09-19 07:00] LABS: INR 0.96; PROTHROMBIN TIME 13.4 seconds (11.9-14.5)
[2019-09-19 07:01] LABS: PARTIAL THROMBOPLASTIN TIME 30.4 seconds (23.8-35.5)
--- NOTE | 2019-09-19 07:15 | NUR ---
BEDSIDE REPORT GIVEN TO THE ONCOMING NURSE .
[2019-09-19 07:18] LABS: ALBUMIN 2.8 g/dL (3.5-5.0); ALBUMIN/GLOBULIN RATIO 0.6 (0.8-2.0); ANION GAP 13.8 mmol/L (8-16); CALCIUM 8.9 mg/dL (8.4-10.2); CREATININE, SERUM 5.04 mg/dL (0.72-1.25); MAGNESIUM 1.9 MG/DL (1.3-2.1); POTASSIUM 3.8 mmol/L (3.5-5.1)
[2019-09-19] MEDS ORDERED: INSULIN REGULAR, HUMAN 100 UNIT/1 ML 3ML VIAL SQ SCH ×3 (07:30)
[2019-09-19] MEDS: INSULIN REGULAR, HUMAN 100 UNIT/1 ML 3ML VIAL SQ SCH ×5 (07:44→20:46)
[2019-09-19] MEDS: CALCIUM ACETATE 667 MG GELCAP PO SCH ×3 (07:51→19:11)
[2019-09-19 08:23] LABS: ANISOCYTOSIS MODERATE; HYPOCHROMASIA SLIGHT; PLATELET ESTIMATE SLIGHTLY DECREASED; PLATELET MORPHOLOGY COMMENT NORMAL
[2019-09-19 08:24] LABS: OVALOCYTES FEW
[2019-09-19 08:30] LABS: RBC MORPHOLOGY COMMENT ABNORMAL
[2019-09-19 08:37] LABS: PLATELET COUNT 122 x10e3/uL (140-360)
[2019-09-19] MEDS: MIDODRINE 2.5 MG TAB PO SCH ×2 (09:00→17:00)
--- NOTE | 2019-09-19 09:25 | NUR ---
Pt sleeping soundly. Pt's at bedside. Pt's expressed no spiritual or emotional concerns at this time. Electrical Sign Servicer provided hospitality and provided information on how to reach forestry pilot, if needed. No need to follow at this time. MILLICENT BENSON Electrical Sign Servicer Spiritual Care Department O: [phone]
[2019-09-19] MEDS ORDERED: SODIUM CHLORIDE 0.9% 250ML 250 ML ONE (11:13)
--- NOTE | 2019-09-19 11:17 | NUR ---
Renal Consult / Dialysis Note HPI - taken from and medical record 84 yo M with ESRD on HD as per MWF schedule is in hospital for surgical repair/amputation of left foot gangrene, Renal has been consulted to continue HD ROS - ca not be assessed as patient does not answer Qs labs - reviewed Objective - BP 166/65 mm hg, P 73, RR 16, T 98.5 Physical exam - General - not in acute distress Chest - CTAB Heart - RRR Ext - edema +, Lt foot gangrene Neuro - alert, non focal Assessment - ESRD Left foot gangrene Anemia Hypertension Plan - - HD today as per prescription through [facility] - will start TEA as needed - continue home meds including antihypertensives - will get HD as per MWF schedule
[2019-09-19] MEDS: LINEZOLID 600 MG TAB PO SCH ×2 (11:25→19:11)
[2019-09-19] MEDS: PANTOPRAZOLE SOD 40 MG TABEC PO SCH (11:25)
[2019-09-19] MEDS: ALLOPURINOL 300 MG TAB PO SCH (11:25)
[2019-09-19] MEDS: PIPER-TAZ 3.375 GM 50 ML IV SCH ×2 (11:25→19:11)
[2019-09-19] MEDS: GABAPENTIN 100 MG CAP PO SCH (11:25)
--- NOTE | 2019-09-19 11:42 | NUR ---
Dr George hameed here for rounds, asked to do dialysis on sunday. notified to Dialysis nurse here
--- NOTE | 2019-09-19 12:44 | Consultation ---
DATE OF CONSULTATION: 09/19/2019 HISTORY OF PRESENT ILLNESS: The patient has been at halfway for aggressive local wound care for the right heel and the left TMA. The flap is gangrenous, it is dry. It is granulating proximally, but the whole distal edge is nonviable. Erythema and edema localized. No streaking erythema. No ascending lymphangitis. No malodor, but he has been on IV antibiotics for over four weeks. Protective threshold is absent. Intrinsic minus type foot ulcer with bone exposed to the right heel and TMA with lateral ulcer at the left foot. His white blood count is 8.36, hemoglobin 9.6, hematocrit 33.6, and his platelets are 122. ASSESSMENT: 1. Diabetic foot ulcer, grade 3, right foot. 2. Diabetic foot ulcer, grade 4, left with failed flap TMA. 3. 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 4. End-stage renal disease. 5. History of sepsis. PLAN: Discussed treatment with the patient. At this point, he is here for a TMA. He says he is wanted to further discuss with me while we take to save the left lower extremity. I discussed with him that he is at risk for sepsis. Again, he is improving, but he is currently on IV antibiotic. Once the antibiotic stops, the limb could become infected again and it could become septic which leaves him high risk for return to the hospital and loss of life. He is aware of this. The right is granulating, it is improving, so I am going to recommend continuation with the local wound care. He and his are again to discuss over the weekend and he is tentatively scheduled for a BKA general surgeon to the left. I have answered all questions and I will follow back up on Sunday. Thank you for letting me participate in the care of this patient. JANELLE Talavera/ALLEN /[id number]
[2019-09-19] MEDS ORDERED: SODIUM CHLORIDE 0.9% 1000ML 2,000 ML ONE (13:57)
--- NOTE | 2019-09-19 15:43 | NUR ---
Nutrition Intervention Note RD Recommendation(s) for Physician: -Continue renal/1800 diabetic diet -Recommend Josh BID as well as zinc and vitamin C to promote wound healing Plan of Care: RD following, monitoring for tolerance and adequacy, oral supplement recommendation Nutrition reason for involvement: Nutrition Risk Trigger MST [address] Assessment (09/19/19) Pt is an 84 year old male admitted with left foot gangrene, gout, HTN, HE, COPD, BM, ESRD, and PVP. Spoke to family member and pt. Pt reported a good appetite with > 50% of meal intake. No weight loss reported and pt mentioned he usually weighs 277-280 lbs. No N/V reported at this time. It is noted that pt has a stage 2 sacrum pressure ulcer and diabetic foot ulcers. Recommend Josh BID as well as zinc and vitamin C to promote wound healing. Will continue to monitor. Principal Problems/Diagnoses: left foot gangrene, gout, HTN, HE, COPD, BM, ESRD, PVP PMH: right heel abscess, cellulitis, prior history of pneumonia, end-stage renal disease, diabetes, diabetic kidney disease, history of AV fistula placement by Dr. Melvin, obstructive sleep apnea, and recurrent aspiration pneumonia GI: last recorded BM 09/18 x 2 Skin: stage 2 sacral pressure ulcer and diabetic foot ulcers Labs: (09/19/19) Na 139, BUN 16, Cr 5.04, Glu 137 Meds: protonix, antibiotic, Phoslo, insulin, levothyroxine Ht: 73 inches (per pt) Wt: 279.5 lbs BMI: 36.8 kg/m2 IBW: 165 lbs Malnutrition Evaluation (09/19/19) The patient does not meet criteria for a specified degree of malnutrition at this time. Will re-evaluate at follow-up as appropriate. Nutrition Prescription (Diet Order): renal/1800 diabetic diet Estimated Nutritional Needs: 3625-8068 calories/day (22-25 kcal/kg IBW) 112-150 g protein/day (1.5-2 g pro/kg IBW) Diet Adequacy: Meeting calorie needs, Meeting protein needs Tolerance: Tolerating PO Diet Education Needs Assessment: Pt declined the need for diet education Nutrition Care Level: low Nutrition Diagnosis: Increased nutrient needs related to increased demand for protein and kcal as evidenced by sacral pressure ulcer and diabetic foot ulcers. Goal: Patient will meet 75-100% of estimated needs by follow up Progress: N/A Interventions: -mineral and carbohydrate modified diet, Commercial beverage Monitoring/Evaluation: -Total energy intake, Total protein intake, Modified diet, Liquid supplement, Weight change Signed: Ivelisse Cooley RD, LD
--- NOTE | 2019-09-19 16:57 | NUR ---
WOUND CARE INITIAL CONSULT FOR 84 YO MALE ADMITTED TO [facility] WITH A PRESENT HX OF LEFT FOOT GANGRENE, GOUT, HTN, HE, COPD, BM, ESRD AND PVD. HX OF SEPSIS. ARSEN 14 ON CONSERVATIVE PUP STATUS AND INTERVENTIONS, LABS: WBC- 8.36 HGB- 9.9 GLUCOSE 137 ALBUMIN- 2.8 CURRENTLY ON IV ABX. SKIN ASSESSMENT COMPLETED PT PRESENTS WITH: 1)RIGHT 4TH FINGER DIABETIC ULCER GRADE 4 CIRCUMFERENTIAL 100% NECROTIC TISSUE/NON VIABLE. NO DRAINAGE. 2)RIGHT 1ST FINGER DIABETIC ULCER GRADE 4, MEASURING 3 CM X 1.5 CM; 100% ESCHAR. NO DRAINAGE. 3)RIGHT 2ND TOE DIABETIC FOOT ULCER GRADE 4, MEASURING 1.5 CM X 1 CM- 100% ESCHAR. NO DRAINAGE. 4)RIGHT 3RD TOE DIABETIC FOOT ULCER GRADE 4, MEASURING 2CM X 1.5 CM 100% ESCHAR. NO DRAINAGE. 5)RIGHT HEEL DIABETIC FOOT ULCER GRADE 3, MEASURING 7.2 CM X 4.5 CM X 0.8 CM; HYPERGRANULATION PRESENT, 95% PINK GRANULAITON, 5 % FIBRIN. 6)LEFT LATERAL FOOT ULCER GRADE 4 ; 100% ESCHAR, NO DRAINAGE, MEASURING 1 CM X 2 CM. 7)LEFT TMA; FAILED FLAP; DIABETIC FOOT ULCER GRADE 4 ; PRESENTS WITH NECROTIC TISSUE, NO DRAINAGE; ELIAS VISIBLE IN PLACE; 80% NECROTIC/ESCHAR TISSUE AND 20% PINK GRANULATION/FIBRIN. 8) BLANCHABLE REDNESS PRESENT TO SACRUM; MEASURING 7CM X 5 CM. NO DRAINAGE. SPOKE WITH DR. WARE RECEIVED ORDERS TO CONTINUE WITH CURRENT WOUND CARE PER DR. ALSTON AND FOR PAINT RIGHT LATERAL FOOT ULCER WITH BETADINE DAILY. RECOMMENDATIONS: NURSING TO CONTINUE WITH DR. MEJIA WOUND CARE ORDERS. NURSING TO CLEAN RIGHT LATERAL FOOT ULCER WITH SALINE, PAT DRY WITH 4X4, PAIN WITH BETADINE, AND COVER WITH 4X4 GAUZE, AND WRAP WITH KERLIX DAILY PER DR. WARE. NURSING TO CLEAN SACRUM WITH NORMAL SALINE, PAT DRY, APPLY VENELEX AND COVER WITH ALLEVYN FOAM DAILY. NURSING TO CONTINUE TO MONITOR PATIENT AND KEEP SKIN CLEAN AND FREE FROM STOOL OR IRRITATING MOISTURE AND CONTINUE TO FOLLOW MODERATE PUP INTERVENTIONS DAILY. NURSING TO CONTINUE REPOSITION PT SIDE TO SIDE EVERY TWO HOURS AND TO ENCOURAGE PT TO SELF REPOSITION IN BED NEEDED. NURSING TO CONTINUE TO APPLY ALTERNATING PRESSURE MATTRESS. NURSING TO CONTINUE TO OFFLOAD FEET AND HEELS AT ALL TIMES WITH PILLOW SUSPENSION WHEN IN BED. NURSING TO APPLY BILATERAL HEEL PROTECTORS DAILY. NURSING TO ASSIST PT OUT OF BED FOR MEALS AND NEEDED. NURSING TO CONTINUE TO ASSIST WITH PT NUTRITIONAL SUPPLEMENTS TO ENSURE PROPER REQUIREMENTS FOR HEALING. NURSING TO RE- CONSULT WOUND CARE NEEDED. Addendum: 09/19/19 at 1706 by Karrie Junior RN Amended: Links added.
--- NOTE | 2019-09-19 17:09 | NUR ---
RECOMMENDATION: Nursing to paint right 1st and 4th finger with betadine daily. Addendum: 09/19/19 at 1711 by Karrie Junior RN Amended: Links added.
[2019-09-19] MEDS: BALSAM PERU/CASTOR OIL 60 GM OINT...G. TP SCH (19:11)
[2019-09-19] MEDS: MONTELUKAST SODIUM 10 MG TAB PO SCH (20:51)
[2019-09-20] VITALS (8 sets, daily range): BP systolic 111–176; BP diastolic 57–120
[2019-09-20] MEDS: LEVOTHYROXINE SODIUM 88 MCG TAB PO SCH (06:16)
[2019-09-20] MEDS: CALCIUM ACETATE 667 MG GELCAP PO SCH ×3 (07:44→16:45)
[2019-09-20] MEDS: INSULIN REGULAR, HUMAN 100 UNIT/1 ML 3ML VIAL SQ SCH ×5 (07:50→21:00)
[2019-09-20] MEDS: MIDODRINE 2.5 MG TAB PO SCH ×2 (08:17→17:00)
[2019-09-20] MEDS: PANTOPRAZOLE SOD 40 MG TABEC PO SCH (08:17)
[2019-09-20] MEDS: LINEZOLID 600 MG TAB PO SCH ×2 (08:17→17:43)
[2019-09-20] MEDS: BALSAM PERU/CASTOR OIL 60 GM OINT...G. TP SCH (08:17)
[2019-09-20] MEDS: GABAPENTIN 100 MG CAP PO SCH (08:17)
[2019-09-20] MEDS: PIPER-TAZ 3.375 GM 50 ML IV SCH ×2 (08:17→17:41)
[2019-09-20] MEDS: ALLOPURINOL 300 MG TAB PO SCH (08:17)
--- NOTE | 2019-09-20 08:33 | Progress Note ---
DATE: SUBJECTIVE: The patient is an 84-year-old male with diabetes and end-organ damage including end-stage renal disease. The patient is getting dialysis. The patient came in with left lower extremity cellulitis, was here for a TMA. The patient is scheduled for a BKA by Dr. Tonio Wright on Sunday. Last dialysis yesterday, the patient will have his dialysis tomorrow before surgery. Currently feeling well. No complaints. No chest pains. No shortness of breath. Pain is well controlled. OBJECTIVE: VITAL SIGNS: Temperature is 97.9, pulse of 83, respirations of 18, blood pressure is 132/77. HEENT: Normocephalic, atraumatic. Pupils are reactive. CVS: S1 and S2 normal. Regular rate and rhythm. ABDOMEN: Soft, nontender, nondistended. EXTREMITIES: Lower extremity left in bandage, right lower extremity with excoriations, ulcerations, and necrotic tissue, same with the upper extremities. LABORATORY VALUES: White count is 8.36, hemoglobin of 9.9, hematocrit of 33.6, neutrophils 62. Chemistries; sodium 139, potassium is 3.8, BUN of 16, creatinine of 5.04, glucose of 80s to 137. Serology, coronavirus was not detected. Hepatitis antibodies are pending. Coags normal. ASSESSMENT: Mr. Ankur Morgan with diabetic foot ulcers, diabetic neuropathy, diabetic retinopathy with end-stage renal disease, peripheral vascular disease and history of sepsis. PLAN: Plan is to do a TMA, but with the majority of symptoms and also continue his IV antibiotics, limb salvage will not be possible, patient is scheduled for a below-knee amputation by Dr. Tonio Wright. Otherwise, continue on current medications. Medicines reviewed. The patient is on levothyroxine, Zyvox and Zosyn for antibiotic coverage. The patient is also on pantoprazole, insulin for sliding scale, midodrine for hypertension secondary to dialysis. Further recommendation per clinical course. The patient is stable, scheduled for surgery and cleared for surgery on Sunday. Shane Han MD ASJ/MODL /[id number]
--- NOTE | 2019-09-20 12:14 | NUR ---
dressing done on both legs, no c/o pain, no distress noted, at bed side
--- NOTE | 2019-09-20 18:55 | NUR ---
Bedside rounds completed with morning nurse. Pt lying in bed HOB 45 degrees with home CPAP, no acute distress noted. No s/s of pain. at bedside. Call light within reach.
[2019-09-20] MEDS: MONTELUKAST SODIUM 10 MG TAB PO SCH (21:00)
[2019-09-21] VITALS (9 sets, daily range): BP systolic 101–193; BP diastolic 41–88
[2019-09-21] MEDS: LEVOTHYROXINE SODIUM 88 MCG TAB PO SCH (06:00)
[2019-09-21] MEDS: INSULIN REGULAR, HUMAN 100 UNIT/1 ML 3ML VIAL SQ SCH ×5 (07:55→21:00)
[2019-09-21] MEDS: CALCIUM ACETATE 667 MG GELCAP PO SCH ×3 (07:55→16:50)
[2019-09-21] MEDS: LINEZOLID 600 MG TAB PO SCH ×2 (08:31→17:25)
[2019-09-21] MEDS: BALSAM PERU/CASTOR OIL 60 GM OINT...G. TP SCH (08:31)
[2019-09-21] MEDS: PANTOPRAZOLE SOD 40 MG TABEC PO SCH (08:31)
[2019-09-21] MEDS: PIPER-TAZ 3.375 GM 50 ML IV SCH ×2 (08:31→17:25)
[2019-09-21] MEDS: ALLOPURINOL 300 MG TAB PO SCH (08:31)
[2019-09-21] MEDS: GABAPENTIN 100 MG CAP PO SCH (08:31)
--- NOTE | 2019-09-21 09:56 | Progress Note ---
DATE: SUBJECTIVE: An 84-year-old male, who comes in with gangrenous toe, cellulitis, was here for schedule for MTP. The patient is now scheduled for a below-knee amputation tomorrow on the left side. The patient also has end-stage renal disease and will undergo dialysis today. No complaints. No chest pains. No shortness of breath. Sleeping comfortably, using his CPAP. OBJECTIVE: VITAL SIGNS: Temperature is 97.5, pulse of 81, respirations of 20, blood pressure is 151/73, and pulse oximetry of 100%. HEENT: Normocephalic and atraumatic. Obesity. CVS: S1 and S2 normal. Regular rate and rhythm. ABDOMEN: Soft, nontender, and nondistended. EXTREMITIES: Positive for gangrenous toes, feet and also in the upper extremity. LABORATORY VALUES: None done today. Last white count is 8.36 with no left shift. The patient's glucose is ranging from 180s to 170s. ASSESSMENT: Mr. Ankur Morgan with: 1. Diabetic foot ulcer. 2. Diabetic neuropathy. 3. Diabetic retinopathy with end-stage renal disease. 4. Diabetic peripheral vascular disease with history of sepsis. 5. Gangrenous toes and gangrenous fingers. PLAN: Again continue with dialysis today. Schedule for a below-knee amputation by Dr. Wright tomorrow. Continue with Zosyn and Zyvox, and continue with his regular medications and his insulin sliding scale. MD PEGGY Heath/MODL /[id number]
[2019-09-21] MEDS ORDERED: LOPERAMIDE HCL 2 MG CAP PO ONE (10:00)
[2019-09-21] MEDS ORDERED: SODIUM CHLORIDE 0.9% 1000ML 1,000 ML ONE (10:20)
[2019-09-21] MEDS: MIDODRINE 2.5 MG TAB PO SCH ×2 (11:32→17:25)
--- NOTE | 2019-09-21 14:17 | Progress Note ---
DATE: 09/21/2019 SUBJECTIVE: The patient is at bedside, getting dialyzed with accompanying. OBJECTIVE: VITAL SIGNS: Afebrile, pulse rate 70, respiration 19, blood pressure 155/54, O2 saturation at 97%. LABORATORY DATA: Noted white blood cell count 8.36, hemoglobin 9.9, glucose of 137. INR 0.96. Good granulation tissue noted to the right foot. Necrosis dry to the left TMA stump with pregangrenous changes 1st, 2nd, and 3rd digit, right foot. Pedal pulses diminished. ASSESSMENT: Peripheral arterial disease, grade 3 ulcer unrelated to surgery, status post transmetatarsal amputation, left foot. PLAN: The patient is scheduled for a BKA possibly tomorrow by Dr. Tonio Wright. We will continue local wound care, offloading. Dr. Wright will follow up. JANELLE Aragon/ALLEN /[id number]
--- NOTE | 2019-09-21 15:23 | Progress Note ---
DATE: 09/20/2019 SUBJECTIVE: The patient at bedside, in no distress. OBJECTIVE: VITAL SIGNS: Afebrile. Vital signs stable. EXTREMITIES: Ulceration to the right heel showed some granulation tissue. Some necrosis noted to the distal stump of the left foot. ASSESSMENT: Peripheral arterial disease with a grade 3 ulcer unrelated to surgery, right foot with pregangrenous changes to the 1st, 2nd, 3rd digit, right with necrotic transmetatarsal amputation left. PLAN: We will continue IV antibiotics. Continue local wound care. The patient will be scheduled to have a BKA per Dr. Tonio Wright possibly on Sunday. We will continue to follow. JANELLE Aragon/ALLEN /[id number]
--- NOTE | 2019-09-21 19:00 | NUR ---
Completed bedside shift report with morning nurse. Pt lying in bed HOB 45 degrees with home CPAP, no acute distress noted. No s/s of pain. at bedside. Call light within reach.
[2019-09-21] MEDS ORDERED: CLONIDINE HCL 0.1 MG TAB PO PRN (20:15)
[2019-09-21] MEDS: MONTELUKAST SODIUM 10 MG TAB PO SCH (21:00)
[2019-09-22] VITALS (7 sets, daily range): BP systolic 91–161; BP diastolic 33–67
[2019-09-22 05:12] LABS: BASOPHILS # (AUTO) 0.1 (0.0-0.1); EOSINOPHILS # (AUTO) 0.5 (0.0-0.4); EOSINOPHILS % 6.5 % (0.0-6.0); HEMATOCRIT 31.5 % (38.2-49.6); HEMOGLOBIN 9.4 g/dL (14.0-18.0); LYMPHOCYTES # (AUTO) 1.6 (1.0-3.2); MEAN CORPUSCULAR HEMOGLOBIN 28.7 pg (28-32); MEAN CORPUSCULAR HGB CONC 29.8 g/dL (31-35); MEAN CORPUSCULAR VOLUME 96.3 fL (81-99); MONOCYTES # (AUTO) 0.9 (0.2-0.8); MONOCYTES % 11.5 % (4.4-11.3); NEUTROPHILS # (AUTO) 4.9 (2.1-6.9); NEUTROPHILS % 60.8 % (38.7-80.0); PLATELET COUNT 88 x10e3/uL (140-360); RED BLOOD COUNT 3.27 x10e6/uL (4.3-5.7); RED CELL DISTRIBUTION WIDTH 20.9 % (11.7-14.4)
[2019-09-22 05:56] LABS: ALBUMIN 2.7 g/dL (3.5-5.0); ALBUMIN/GLOBULIN RATIO 0.6 (0.8-2.0); ANION GAP 13.6 mmol/L (8-16); CALCIUM 9.4 mg/dL (8.4-10.2); CREATININE, SERUM 4.2 mg/dL (0.72-1.25); POTASSIUM 4.6 mmol/L (3.5-5.1)
[2019-09-22] MEDS: LEVOTHYROXINE SODIUM 88 MCG TAB PO SCH (06:00)
--- NOTE | 2019-09-22 06:40 | NUR ---
RECEIVED BEDSIDE SHIFT REPORT FROM OFF GOING NURSE. PATIENT IS RESTING IN BED. AT BEDSIDE. CALL LIGHT WITHIN REACH. BED IN THE LOWEST POSITION. BED ALARM ON.
[2019-09-22] MEDS: INSULIN REGULAR, HUMAN 100 UNIT/1 ML 3ML VIAL SQ SCH ×5 (07:30→21:11)
[2019-09-22] MEDS: CALCIUM ACETATE 667 MG GELCAP PO SCH ×3 (07:30→16:05)
[2019-09-22] MEDS: MIDODRINE 2.5 MG TAB PO SCH ×2 (07:48→16:05)
[2019-09-22] MEDS: BALSAM PERU/CASTOR OIL 60 GM OINT...G. TP SCH (07:49)
[2019-09-22] MEDS: PIPER-TAZ 3.375 GM 50 ML IV SCH ×2 (08:00→16:05)
[2019-09-22] MEDS: LINEZOLID 600 MG TAB PO SCH ×2 (09:00→16:05)
--- NOTE | 2019-09-22 10:24 | NUR ---
PATIENT OFF UNIT AT THIS TIME.
--- NOTE | 2019-09-22 10:54 | NUR ---
DR. HERNANDEZ IN TO SEE PATIENT. PER , CALL [facility] TO SCHEDULE. SPOKE TO PHOTOVOLTAIC INSTALLER TO SCHEDULE PATIENT FOR TOMORROW.
[2019-09-22] MEDS ORDERED: ONDANSETRON HCL INJ 2MG/ML 2ML 2 MG/ML VIAL ONE (14:40)
[2019-09-22] MEDS ORDERED: ETOMIDATE 2 MG/ML 10 ML INJ IV ONE (14:40)
[2019-09-22] MEDS ORDERED: LIDOCAINE HCL 2% LOCAL INJ 5 ML SDV VIAL INJ ONE (14:40)
[2019-09-22] MEDS ORDERED: SEVOFLURANE INHAL SOLN 250 ML PEN BTL ONE (14:40)
[2019-09-22] MEDS ORDERED: ONDANSETRON HCL INJ 2MG/ML 2ML 2 MG/ML VIAL IV PRN (14:45)
[2019-09-22] MEDS ORDERED: FENTANYL CITRATE/PF 100MCG/2 ML INJ ONE (15:01)
[2019-09-22] MEDS ORDERED: DIPHENHYDRAMINE HCL INJ 50 MG/ML VIAL ONE (15:16)
--- NOTE | 2019-09-22 15:36 | NUR ---
PATIENT BACK TO UNIT AT THIS TIME.
[2019-09-22] MEDS ORDERED: ACETAMINOPHEN 1000 MG/100 ML IV PRN (16:00)
[2019-09-22] MEDS: ALLOPURINOL 300 MG TAB PO SCH (16:05)
[2019-09-22] MEDS: GABAPENTIN 100 MG CAP PO SCH (16:05)
[2019-09-22] MEDS: PANTOPRAZOLE 40 MG 10ML VIAL IV SCH (16:05)
--- NOTE | 2019-09-22 16:38 | Operative Report ---
DATE OF PROCEDURE: 09/22/2019 SURGEON: Tonio Wright MD PREOPERATIVE DIAGNOSIS: Gangrene of the left foot. POSTOPERATIVE DIAGNOSIS: Gangrene of the left foot. OPERATION PERFORMED: Left below-knee amputation. TEACHER OF THE SIGHT IMPAIRED: CLARITA Haywood. ANESTHESIA: General. COMPLICATIONS: None. ESTIMATED BLOOD LOSS: About 300 mL. DESCRIPTION OF PROCEDURE: With the patient lying in bed in the supine position under good general anesthesia, the left leg was prepped with Betadine solution and draped in the usual manner. An incision was made below the knee about 6-8 inches below the knee joint. Incision was deepened through the subcutaneous tissue. A longer posterior flap was created. The fascia was then opened and the tibia was then dissected proximally roughly about 2 inches and divided with a Gigli saw at this level. The fibula was similarly divided about 2 inches above the skin incision with a Gigli saw. The posterior muscle girdle was then slowly and carefully taken down with the cautery with the three larger blood vessels ligated with 0 silk and divided and the leg was sent for pathological examination. The wound was then copiously irrigated. Hemostasis was ascertained with the cautery and 3-0 Vicryl sutures. Some bone wax was utilized and hemostasis was ascertained. The muscles, particularly on the medial aspect of the leg did not have the best blood supply, but was reasonable enough to attempt to see if this would heal at this level. The fascia was then reapproximated with interrupted sutures of 2-0 Vicryl and the skin was closed with interrupted vertical mattress sutures of 3-0 silk. A dressing was applied. The sponge, lap, and needle count was correct. The patient tolerated the procedure well and returned to the recovery room in stable condition. MD SANTHOSH Chadwick/MODL /[id number]
--- NOTE | 2019-09-22 19:06 | NUR ---
BEDSIDE SHIFT REPORT GIVEN TO ONCOMING NURSE. PATIENT IS RESTING IN BED. NO ACUTE DISTRESS NOTED. AT BEDSIDE. CALL LIGHT WITHIN REACH. BED IN THE LOWEST POSITION.
--- NOTE | 2019-09-22 19:30 | NUR ---
BSSR RECEIVED FROM DAYSHIFT RN, PATIENT S/P SURGERY TODAY LEFT BKA, IMMOBILIZER IN PLACE, DRESSING IN PLACE, PT REPORT PAIN LEVEL 6/10, SPOUSE AT BEDSIDE, PT CPAP IN PLACE, RIGHT HEEL DRESSING REPLACED AT END OF SHIFT PER RN, DRESSING C/D/I,
[2019-09-22] MEDS: MONTELUKAST SODIUM 10 MG TAB PO SCH (21:21)
[2019-09-22] MEDS: HYDROMORPHONE 1MG/1ML INJ IV PRN (21:23)
[2019-09-23] VITALS (10 sets, daily range): BP systolic 93–130; BP diastolic 30–61
--- NOTE | 2019-09-23 | NUR ---
SPRUE KNOCKER SHEYLA REPORT BLOOD PRESSURE 91/33 AFTER ADMINISTERING PRN PAIN MEDICATION, PATIENT ENCOURAGED TO DRINK FLUIDS, PLACED IN [place] POSITION, WILL REASSESS IN 30 MINUTES
--- NOTE | 2019-09-23 00:30 | NUR ---
BLOOD PRESSURE 105/40, WILL BE CONTACT FOR ORDERS
[2019-09-23] MEDS ORDERED: SODIUM CHLORIDE 0.9% 500ML 500 ML IV ONE (01:30)
--- NOTE | 2019-09-23 01:30 | NUR ---
MD ALSTON CONTACTED VIA TELEPHONE, MD ASLTON ORDERED [id number] BOLUS NOW, AND REASSESS VITAL ROUTINELY, RECONTACT MD VIA TELEPHONE IF INEFFECTIVE
[2019-09-23] MEDS: LEVOTHYROXINE SODIUM 88 MCG TAB PO SCH (05:02)
[2019-09-23] MEDS: HYDROMORPHONE 1MG/1ML INJ IV PRN (05:15)
[2019-09-23 06:03] LABS: BASOPHILS # (AUTO) 0.1 (0.0-0.1); BASOPHILS % 0.9 % (0.0-1.0); EOSINOPHILS # (AUTO) 0.5 (0.0-0.4); EOSINOPHILS % 4.4 % (0.0-6.0); HEMOGLOBIN 8.7 g/dL (14.0-18.0); LYMPHOCYTES # (AUTO) 1.8 (1.0-3.2); LYMPHOCYTES % 15.5 % (18.0-39.1); MEAN CORPUSCULAR HEMOGLOBIN 27.8 pg (28-32); MEAN CORPUSCULAR VOLUME 95.8 fL (81-99); MONOCYTES # (AUTO) 1.3 (0.2-0.8); MONOCYTES % 11.1 % (4.4-11.3); NEUTROPHILS # (AUTO) 7.9 (2.1-6.9); NEUTROPHILS % 67.8 % (38.7-80.0); PLATELET COUNT 103 x10e3/uL (140-360); RED BLOOD COUNT 3.13 x10e6/uL (4.3-5.7); RED CELL DISTRIBUTION WIDTH 21.5 % (11.7-14.4)
[2019-09-23 06:28] LABS: ANION GAP 17.7 mmol/L (8-16); CALCIUM 9.2 mg/dL (8.4-10.2); CREATININE, SERUM 5.53 mg/dL (0.72-1.25); POTASSIUM 4.7 mmol/L (3.5-5.1)
--- NOTE | 2019-09-23 06:52 | NUR ---
REPORT GIVEN TO ONCOMING SHIFT, PT STABLE NO DISTRESS, CPAP ON SLEEPING AT BEDSIDE CALL LIGHT WITHIN REACH
[2019-09-23] MEDS: CALCIUM ACETATE 667 MG GELCAP PO SCH ×3 (07:30→16:30)
[2019-09-23] MEDS: HYDROCODONE/APAP 7.5MG-325MG 1 EA TAB PO PRN (08:32)
[2019-09-23] MEDS: ALLOPURINOL 300 MG TAB PO SCH (08:41)
[2019-09-23] MEDS: BALSAM PERU/CASTOR OIL 60 GM OINT...G. TP SCH (08:41)
[2019-09-23] MEDS: MIDODRINE 2.5 MG TAB PO SCH ×2 (08:41→17:00)
[2019-09-23] MEDS: LINEZOLID 600 MG TAB PO SCH ×2 (08:41→18:38)
[2019-09-23] MEDS: GABAPENTIN 100 MG CAP PO SCH (08:41)
[2019-09-23] MEDS: PIPER-TAZ 3.375 GM 50 ML IV SCH ×2 (08:41→18:38)
[2019-09-23] MEDS: INSULIN REGULAR, HUMAN 100 UNIT/1 ML 3ML VIAL SQ SCH ×5 (11:24→21:00)
[2019-09-23] MEDS ORDERED: SODIUM CHLORIDE 0.9% 1000ML 2,000 ML ONE (12:50)
--- NOTE | 2019-09-23 16:36 | NUR ---
dr. heath notified of pt/b/p 125/34 no orders at this time.
[2019-09-23] MEDS: PANTOPRAZOLE 40 MG 10ML VIAL IV SCH (18:38)
--- NOTE | 2019-09-23 19:08 | NUR ---
RECEIVED PT IN BED AOX
--- NOTE | 2019-09-23 19:42 | NUR ---
RECEIVED PT IN BED AOX2 .PT C/O PAIN .LEFT BKA RESPIRATIONS ARE EVEN AND UNLABORED .LEFT UPPER ARM MIDLINE .RT HEEL WITH DRESSING .STAGE 2 AT [facility] DIALYZED 3L TODAY .TELE 19 SHOWS SR .FAMILY AT THE BEDSIDE .CONTINUE TO MONITOR
[2019-09-23] MEDS: ACETAMINOPHEN 325 MG TAB PO PRN (21:30)
[2019-09-23] MEDS: MONTELUKAST SODIUM 10 MG TAB PO SCH (21:37)
[2019-09-24] VITALS (7 sets, daily range): BP systolic 96–150; BP diastolic 43–67
[2019-09-24] MEDS: HYDROCODONE/APAP 7.5MG-325MG 1 EA TAB PO PRN ×4 (01:10→18:53)
[2019-09-24] MEDS: ACETAMINOPHEN 325 MG TAB PO PRN (03:36)
[2019-09-24 06:02] LABS: BASOPHILS # (AUTO) 0.1 (0.0-0.1); BASOPHILS % 0.8 % (0.0-1.0); EOSINOPHILS # (AUTO) 0.4 (0.0-0.4); EOSINOPHILS % 3.6 % (0.0-6.0); HEMATOCRIT 28.8 % (38.2-49.6); HEMOGLOBIN 8.4 g/dL (14.0-18.0); LYMPHOCYTES # (AUTO) 1.7 (1.0-3.2); LYMPHOCYTES % 16.7 % (18.0-39.1); MEAN CORPUSCULAR HEMOGLOBIN 27.9 pg (28-32); MEAN CORPUSCULAR HGB CONC 29.2 g/dL (31-35); MEAN CORPUSCULAR VOLUME 95.7 fL (81-99); MONOCYTES # (AUTO) 1.3 (0.2-0.8); MONOCYTES % 12.5 % (4.4-11.3); NEUTROPHILS # (AUTO) 6.7 (2.1-6.9); PLATELET COUNT 90 x10e3/uL (140-360); RED BLOOD COUNT 3.01 x10e6/uL (4.3-5.7); RED CELL DISTRIBUTION WIDTH 21.6 % (11.7-14.4)
[2019-09-24] MEDS: LEVOTHYROXINE SODIUM 88 MCG TAB PO SCH (06:14)
--- NOTE | 2019-09-24 06:16 | NUR ---
PT C/O PAIN AND GIVEN NORCO AND TYLENOL .PT RESTING FAMILY AT THE BEDSIDE .CALL LIGHT WITH IN REACH CONTINUE TO MONITOR
[2019-09-24 06:33] LABS: ALBUMIN 2.6 g/dL (3.5-5.0); ALBUMIN/GLOBULIN RATIO 0.6 (0.8-2.0); ANION GAP 14.1 mmol/L (8-16); CALCIUM 8.5 mg/dL (8.4-10.2); CREATININE, SERUM 4.03 mg/dL (0.72-1.25); POTASSIUM 4.1 mmol/L (3.5-5.1)
--- NOTE | 2019-09-24 07:05 | NUR ---
BEDSIDE REPORT GIVEN TO THE ONCOMING NURSE.
[2019-09-24] MEDS: INSULIN REGULAR, HUMAN 100 UNIT/1 ML 3ML VIAL SQ SCH ×5 (07:30→21:30)
[2019-09-24] MEDS: CALCIUM ACETATE 667 MG GELCAP PO SCH ×3 (07:30→16:30)
[2019-09-24] MEDS: ALLOPURINOL 300 MG TAB PO SCH (09:00)
[2019-09-24] MEDS: LINEZOLID 600 MG TAB PO SCH ×2 (09:00→17:37)
[2019-09-24] MEDS: PIPER-TAZ 3.375 GM 50 ML IV SCH ×2 (09:00→17:00)
[2019-09-24] MEDS: GABAPENTIN 100 MG CAP PO SCH (09:00)
[2019-09-24] MEDS: MIDODRINE 2.5 MG TAB PO SCH ×2 (09:00→17:00)
--- NOTE | 2019-09-24 09:55 | NUR ---
ASSESSMENT: Spiritual concern Pt sleeping soundly and at bedside. Pt's requesting information about possibility of daughter's geospatial intelligence analyst coming to visit. Pt identifies as Islam. Intervention: Provided information about visiting regulations during COVID pandemic. Pt's understood. Provided reminder concerning availability of Fire Inspector support and instruction on how to reach reverberatory furnace operator, if needed. Outcome: Pt's expressed appreciation for visit. Will continue to follow as able. MILLICENT BENSON Fire Inspector Spiritual Care Department O: [phone]
[2019-09-24] MEDS: HYDROMORPHONE 1MG/1ML INJ IV PRN (13:25)
[2019-09-24] MEDS: BALSAM PERU/CASTOR OIL 60 GM OINT...G. TP SCH (13:39)
[2019-09-24] MEDS: PANTOPRAZOLE 40 MG 10ML VIAL IV SCH (17:36)
--- NOTE | 2019-09-24 18:55 | NUR ---
Bedside rounds completed with morning nurse. Pt lying in bed HOB 45 degrees with home CPAP. Pt S/P 3 days Left BKA, denies pain at this time. Pt. at bedside. Call light within reach.
--- NOTE | 2019-09-24 19:29 | NUR ---
walking rounds complete, pt stable at shift change.
[2019-09-24] MEDS: MONTELUKAST SODIUM 10 MG TAB PO SCH (21:30)
[2019-09-25] VITALS (7 sets, daily range): BP systolic 100–175; BP diastolic 42–98
[2019-09-25] MEDS: HYDROMORPHONE 1MG/1ML INJ IV PRN ×3 (02:55→20:20)
[2019-09-25] MEDS: LEVOTHYROXINE SODIUM 88 MCG TAB PO SCH (06:16)
[2019-09-25] MEDS: CALCIUM ACETATE 667 MG GELCAP PO SCH ×3 (07:30→16:30)
[2019-09-25] MEDS: INSULIN REGULAR, HUMAN 100 UNIT/1 ML 3ML VIAL SQ SCH ×5 (07:30→20:54)
--- NOTE | 2019-09-25 08:30 | NUR ---
dialysis started at this time.
[2019-09-25] MEDS: LINEZOLID 600 MG TAB PO SCH ×2 (09:00→17:00)
[2019-09-25] MEDS: BALSAM PERU/CASTOR OIL 60 GM OINT...G. TP SCH (09:00)
[2019-09-25] MEDS: PIPER-TAZ 3.375 GM 50 ML IV SCH ×2 (09:00→18:51)
[2019-09-25] MEDS: MIDODRINE 2.5 MG TAB PO SCH ×2 (09:00→17:00)
[2019-09-25] MEDS: ALLOPURINOL 300 MG TAB PO SCH (09:00)
[2019-09-25] MEDS: GABAPENTIN 100 MG CAP PO SCH (09:00)
[2019-09-25] MEDS: HYDROCODONE/APAP 7.5MG-325MG 1 EA TAB PO PRN (09:36)
[2019-09-25] MEDS ORDERED: SODIUM CHLORIDE 0.9% 1000ML 2,000 ML ONE (09:36)
--- NOTE | 2019-09-25 09:43 | NUR ---
SIGNED CHOICE FOR [facility], FILED IN CHART, WILL FAX CLINICALS AND COMPLETE COVID FORM AND RTF
--- NOTE | 2019-09-25 12:59 | NUR ---
dialysis complete 2.5 liters reported off.
--- NOTE | 2019-09-25 13:38 | Consultation ---
DATE OF CONSULTATION: REASON FOR CONSULTATION: Infection of foot. HISTORY OF PRESENT ILLNESS: This patient who has history of diabetes mellitus, diabetic foot ulcer on the right heel diabetic foot ulcer, left who had a TMA, flap which failed, severe peripheral vascular disease, end-stage renal disease. The patient was in the hospital recently. He was given IV antibiotic. Sent to skilled care facility. The patient is coming here, underwent left telbm-aah-jxco amputation. I am asked to see him. The patient is currently lying in bed comfortably. MEDICATIONS: The patient who is currently on levothyroxine, insulin, Singulair, linezolid, Zosyn. PAST MEDICAL HISTORY: As above. PAST SURGICAL HISTORY: As above. ALLERGIES: NKA. SOCIAL HISTORY: There is no smoking, drug abuse or alcohol abuse. FAMILY HISTORY: Unremarkable. REVIEW OF SYSTEMS: The patient is currently weak. Otherwise unremarkable. PHYSICAL EXAMINATION: GENERAL: He is currently alert, oriented. VITAL SIGNS: Stable, afebrile. He is not icteric. NECK: Supple. CHEST: Clear. HEART: S1, S2. No S3, S4. No murmur. ABDOMEN: Soft. Bowel sounds present. No tenderness. EXTREMITIES: No edema. SKIN: No rash. IMPRESSION: 1. Osteomyelitis, status post amputation. From Infectious Disease point of view, can discontinue antibiotic. 2. Diabetes mellitus. 3. Neuropathy. 4. We will follow with you. Thank you for asking me to see this patient. MD JAYESH Wagner/ALLEN /[id number]
--- NOTE | 2019-09-25 14:47 | NUR ---
CARE HOME FACILITY DISCHARGE INFORMATION PATIENT HAS BEEN ACCEPTED TO: NAME: [facility] ADDRESS:[id number] ACCEPTING POULTRY BONER: GEOVANNY MEMBRENO MD: ALECIA ROOM: 108 NURSE CALL REPORT TO: [phone] IMM SIGNED AND OBTAINED (if applicable): THE FOLLOWING DOCUMENTS MUST ACCOMPANY PATIENT FOR TRANSFER: COPIED CHART: PACKET
[2019-09-25] MEDS: PANTOPRAZOLE 40 MG 10ML VIAL IV SCH (16:00)
--- NOTE | 2019-09-25 19:20 | NUR ---
walking rounds complete, pt stable at shift change.
[2019-09-25] MEDS ORDERED: DIPHENHYDRAMINE HCL 30 GM TUBE TOP PRN (19:30)
[2019-09-25] MEDS: MONTELUKAST SODIUM 10 MG TAB PO SCH (20:30)
[2019-09-26] VITALS: BP 131/57
[2019-09-26 04:00] VITALS: BP 126/84
[2019-09-26] MEDS: HYDROMORPHONE 1MG/1ML INJ IV PRN (04:10)
[2019-09-26] MEDS: LEVOTHYROXINE SODIUM 88 MCG TAB PO SCH (06:00)
--- NOTE | 2019-09-26 06:30 | NUR ---
Aseptically changed midline line dressing to left upper arm, site without redness or swelling. No s/s of infection. Pt denies discomfort at site. Area cleansed with antiseptic casting cleaner and allowed to air dry. Secured with transparent sterile membrane Tegaderm. Changed left heel drsg, Pt tolerated well. at bedside. Call light within reach.
[2019-09-26 07:20] VITALS: BP 151/87
--- NOTE | 2019-09-26 07:20 | NUR ---
PATIENT REPOSITIONED IN BED BY 2 STAFFS, CPAP IN PLACE, NO DISTRESS NOTED. 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 BED IN LOWER POSITION, CALL LIGHT AT REACH.
[2019-09-26 07:28] VITALS: BP 151/87
[2019-09-26] MEDS: INSULIN REGULAR, HUMAN 100 UNIT/1 ML 3ML VIAL SQ SCH ×3 (07:30→11:30)
[2019-09-26] MEDS: CALCIUM ACETATE 667 MG GELCAP PO SCH ×2 (08:00→11:58)
[2019-09-26] MEDS: BALSAM PERU/CASTOR OIL 60 GM OINT...G. TP SCH (09:20)
[2019-09-26] MEDS: LINEZOLID 600 MG TAB PO SCH (09:20)
[2019-09-26] MEDS: ALLOPURINOL 300 MG TAB PO SCH (09:20)
[2019-09-26] MEDS: MIDODRINE 2.5 MG TAB PO SCH (09:21)
[2019-09-26] MEDS: PIPER-TAZ 3.375 GM 50 ML IV SCH (09:21)
[2019-09-26] MEDS: GABAPENTIN 100 MG CAP PO SCH (09:21)
[2019-09-26 11:16] VITALS: BP 132/55
--- NOTE | 2019-09-26 11:21 | NUR ---
PHYSICAL THERAPIST WORKING WITH PATIENT AT BED SIDE, WILL CLOSELY MONITOR.
--- NOTE | 2019-09-26 13:14 | Progress Note ---
DATE: SUBJECTIVE: The patient is seen and evaluated, discussed with the , discussed with the patient. The patient is currently on BiPAP, comfortable in bed. He uses his BiPAP as needed. No nausea, vomiting, fever, chills, chest pain, or shortness of breath. He has had some diarrhea for quite some time that is not new, and also has a poor appetite, the says there is some of this has to do it. OBJECTIVE: VITAL SIGNS: Temperature 97.5, pulse 86, respirations 18, and blood pressure 132/76. GENERAL: Awake and alert, in no acute distress. CV: S1, S2. CHEST: Equal expansion. Clear to auscultation. Decreased breath sounds, in no acute distress. ABDOMEN: Soft, obese, nontender. HEENT: Moist. No pallor. No JVD. EXTREMITIES: Right foot wounds, on local care. Left lower extremity status post BKA dressed, on local care with brace. MEDICATIONS: Reviewed from ID point of view, the patient is on: 1. Zosyn. 2. Zyvox. LABORATORY STUDIES: No new CBC or BMP available. Last white blood cells were 10.07 with platelet count of 90 and creatinine level of 4.03. MICROBIOLOGY: No new microbiology. RADIOLOGY: No new radiology. ASSESSMENT AND PLAN: 1. Left foot osteomyelitis. 2. Multiple dry wounds of all extremities. 3. Diabetes. 4. Neuropathy. 5. Obesity. 6. Debility. 7. Diarrhea, on Zosyn and Zyvox. 8. The patient with thrombocytopenia. He can stop antibiotics and discharge. Please refer to chart for more information. Dictated by Jg Bernabe PA-C (Al) Veena Lubin MD /MODL /[id number]
--- NOTE | 2019-09-26 14:46 | NUR ---
Nutrition Intervention Note RD Recommendation(s) for Physician: -Recommend renal/1800 diabetic diet -Recommend Josh BID as well as zinc and vitamin C to promote wound healing Plan of Care: RD following, monitoring for tolerance and adequacy, oral supplement recommendation Nutrition reason for involvement: follow up RD Assessment 09/25: Follow up. It is recorded that pt is consuming 50-75% of meals. Continue to recommend Josh BID as well as zinc and vitamin C to promote wound healing. Will continue to monitor. (09/19/19) Pt is an 84 year old male admitted with left foot gangrene, gout, HTN, HE, COPD, BM, ESRD, and PVP. Spoke to family member and pt. Pt reported a good appetite with > 50% of meal intake. No weight loss reported and pt mentioned he usually weighs 277-280 lbs. No N/V reported at this time. It is noted that pt has a stage 2 sacrum pressure ulcer and diabetic foot ulcers. Recommend Josh BID as well as zinc and vitamin C to promote wound healing. Will continue to monitor. Principal Problems/Diagnoses: left foot gangrene, gout, HTN, HE, COPD, BM, ESRD, PVP PMH: right heel abscess, cellulitis, prior history of pneumonia, end-stage renal disease, diabetes, diabetic kidney disease, history of AV fistula placement, obstructive sleep apnea, and recurrent aspiration pneumonia GI: last recorded BM 09/25 Skin: blanchable redness to sacrum, multiple diabetic foot ulcers, diabetic toe ulcers, right finger diabetic ulcers, heel diabetic ulcer per wound care note 09/18 Labs: 09/25: Na 140, BUN 16, Cr 4.20, Glu 177 (09/19/19) Na 139, BUN 16, Cr 5.04, Glu 137 Meds: Phoslo, insulin, antibiotic, levothyroxine, dilaudud, protonix, zofran Ht: 73 inches (per pt) Wt: 262 lbs (09/25) 279.5 lbs (09/18) BMI: 34.6 kg/m2 IBW: 165 lbs Malnutrition Evaluation (09/19/19) The patient does not meet criteria for a specified degree of malnutrition at this time. Will re-evaluate at follow-up as appropriate. Nutrition Prescription (Diet Order): 1800 diabetic diet Estimated Nutritional Needs: 0061-7110 calories/day (22-25 kcal/kg IBW) 112-150 g protein/day (1.5-2 g pro/kg IBW) Diet Adequacy: Meeting calorie needs, Meeting protein needs Tolerance: Tolerating PO Diet Education Needs Assessment: (09/19/19) Pt declined the need for diet education Nutrition Care Level: low Nutrition Diagnosis: Increased nutrient needs related to increased demand for protein and kcal as evidenced by multiple ulcers. Goal: Patient will meet 75-100% of estimated needs by follow up Progress: progressing Interventions: -mineral and carbohydrate modified diet, Commercial beverage Monitoring/Evaluation: -Total energy intake, Total protein intake, Modified diet, Liquid supplement, Weight change Signed: Ivelisse Cooley, RD, LD
--- NOTE | 2019-09-26 14:56 | NUR ---
DR MANNING IN AT THIS TIME. SURGICAL DRESSING CHANGED. PATIENT TOLERATED PROCEDURE WELL. IT IS OK TO TRANSFER PATIENT TO MEDICAL RESORT.
[2019-09-26 15:37] VITALS: BP 140/54
[2019-09-26] MEDS: PANTOPRAZOLE 40 MG 10ML VIAL IV SCH (16:00)
--- NOTE | 2019-09-26 17:55 | NUR ---
PATIENT TRANSFERRED TO SENIOR CARE FACILITY. REPORT CALLED AND GIVEN TO RECEIVING NURSE. PATIENT'S AT BED SIDE AT THE TIME OF TRANSFER. MIDLINE TO LEFT UPPER ARM INTACT AND PATENT. ALL PERSONAL ITEMS TAKEN WITH PATIENT. LEFT UNIT ON STRETCHER PER AMBULANCE IN STABLE CONDITION.
--- NOTE | 2019-09-27 05:13 | Discharge Summary ---
DISCHARGE DIAGNOSES: 1. Cellulitis of the left leg. 2. Status post left TKA. 3. Diabetes. 4. Sleep apnea. 5. End-stage renal disease. 6. Peripheral arterial disease. 7. Morbid obesity. HISTORY OF PRESENT ILLNESS AND HOSPITAL COURSE: See hospital chart for full details. The patient is a gentleman, well known to me with multiple medical comorbidities, who was at a retirement for left foot osteomyelitis and status post TMA that was just not responding with dehiscence of the wound for failure to heal, so the patient was brought in, went to the OR with Dr. Tonio Wright, who performed a left TKA without complication. Postoperatively, the patient did well. He had dialysis treatments and the patient was cleared by Surgery. He was then transferred over to [facility] for further rehabilitative care. Please see hospital chart for full details. MD ROXY Guerrero/ALLEN /[id number]
== END 2019-09-26 17:59 | DRG 239 ==
LOC: MED/SURG3 22:53
PROVIDERS: ADMIT Internal Medicine; ATTEND Internal Medicine
PROC: 5A1D70Z Performance of Urinary Filtration, Intermittent, Less than 6 Hours Per Day (ICD-10-PCS; 2019-09-19)
PROC: 5A1D70Z Performance of Urinary Filtration, Intermittent, Less than 6 Hours Per Day (ICD-10-PCS; 2019-09-21)
PROC: 0Y6J0Z2 Detachment at Left Lower Leg, Mid, Open Approach (ICD-10-PCS; principal; 2019-09-22 12:40)
PROC: 5A1D70Z Performance of Urinary Filtration, Intermittent, Less than 6 Hours Per Day (ICD-10-PCS; 2019-09-23)
PROC: 5A1D70Z Performance of Urinary Filtration, Intermittent, Less than 6 Hours Per Day (ICD-10-PCS; 2019-09-25)
DX: E11.52 Type 2 diabetes mellitus with diabetic peripheral angiopathy with gangrene (principal); N18.6 End stage renal disease; I96 Gangrene, not elsewhere classified; I12.0 Hypertensive chronic kidney disease with stage 5 chronic kidney disease or end stage renal disease; L97.416 Non-pressure chronic ulcer of right heel and midfoot with bone involvement without evidence of necrosis; L97.528 Non-pressure chronic ulcer of other part of left foot with other specified severity; M86.8X7 Other osteomyelitis, ankle and foot; L03.116 Cellulitis of left lower limb; T86.821 Skin graft (allograft) (autograft) failure; L98.498 Non-pressure chronic ulcer of skin of other sites with other specified severity; E11.22 Type 2 diabetes mellitus with diabetic chronic kidney disease; Z99.2 Dependence on renal dialysis; G47.33 Obstructive sleep apnea (adult) (pediatric); Z88.3 Allergy status to other anti-infective agents; Z82.49 Family history of ischemic heart disease and other diseases of the circulatory system; E11.621 Type 2 diabetes mellitus with foot ulcer; E11.42 Type 2 diabetes mellitus with diabetic polyneuropathy; E11.69 Type 2 diabetes mellitus with other specified complication; M10.9 Gout, unspecified; D64.9 Anemia, unspecified; R19.7 Diarrhea, unspecified; Z89.432 Acquired absence of left foot; E11.319 Type 2 diabetes mellitus with unspecified diabetic retinopathy without macular edema; D69.6 Thrombocytopenia, unspecified; E66.9 Obesity, unspecified; E11.622 Type 2 diabetes mellitus with other skin ulcer; Z79.4 Long term (current) use of insulin; Z68.36 Body mass index [BMI] 36.0-36.9, adult
CPT/HCPCS: 36415; 80048; 80053; 82948; 83735; 85025; 85610; 85730; 86704; 86705; 86706; 87340; 87635; 88307; 96372; 97139; 99251; J1170; J1200; J1817; J2001; J2405; J2543; J3010; J7030; J7040; J7050

== ENCOUNTER 2020-01-01 16:43 | Inpatient (IN) | payer MEDICARE, OTHER ==
[~2020-01-01] VITALS: Ht 185.4 cm; Wt 114.9 kg
[~2020-01-01 16:43] MED LIST changes: +ACETAMINOP325 MG/10 PO; +CITALOPRAM HBR20 MG PO
[2020-01-01 17:54] LABS: BASOPHILS # (AUTO) 0.1 (0.0-0.1); BASOPHILS % 0.5 % (0.0-1.0); EOSINOPHILS # (AUTO) 0.4 (0.0-0.4); HEMATOCRIT 31.1 % (38.2-49.6); HEMOGLOBIN 9.3 g/dL (14.0-18.0); LYMPHOCYTES # (AUTO) 1.7 (1.0-3.2); LYMPHOCYTES % 14.9 % (18.0-39.1); MEAN CORPUSCULAR HEMOGLOBIN 27.4 pg (28-32); MEAN CORPUSCULAR HGB CONC 29.9 g/dL (31-35); MEAN CORPUSCULAR VOLUME 91.7 fL (81-99); MONOCYTES # (AUTO) 1.4 (0.2-0.8); MONOCYTES % 12.8 % (4.4-11.3); NEUTROPHILS # (AUTO) 7.5 (2.1-6.9); NEUTROPHILS % 67.2 % (38.7-80.0); PLATELET COUNT 82 x10e3/uL (140-360); RED BLOOD COUNT 3.39 x10e6/uL (4.3-5.7)
[2020-01-01 18:04] LABS: INR 1.09; PROTHROMBIN TIME 14.7 seconds (11.9-14.5)
[2020-01-01 18:06] LABS: PARTIAL THROMBOPLASTIN TIME 38.1 seconds (23.8-35.5)
[2020-01-01 18:11] LABS: ALBUMIN 3.4 g/dL (3.5-5.0); ALBUMIN/GLOBULIN RATIO 0.9 (0.8-2.0); CALCIUM 8.6 mg/dL (8.4-10.2); CREATININE, SERUM 9.11 mg/dL (0.72-1.25)
[2020-01-01 18:18] LABS: B-TYPE NATRIURETIC PEPTIDE2 83.2 pg/mL (0-100)
[2020-01-01 18:21] LABS: CREATINE KINASE MB 1.2 ng/mL (0-5.0)
[2020-01-01 18:29] LABS: ABG HCO3 25 mmol/L (22-26); ABG PCO2 42 mmHg (35-45); ABG PH 7.38 (7.35-7.45); ABG PO2 81 mmHg (80-105); ABG TCO2 27
[2020-01-01] MEDS ORDERED: ONDANSETRON HCL INJ 2MG/ML 2ML 2 MG/ML VIAL IV PRN (21:15)
[2020-01-01] MEDS ORDERED: DEXTROSE 50% SYRINGE 50 ML IV PRN (21:15)
[2020-01-01] MEDS ORDERED: SODIUM CHLORIDE FLUSH 10 ML SYR INJ PRN (21:15)
[2020-01-01] MEDS ORDERED: DICYCLOMINE HCL20 MG PO (22:46)
[2020-01-01] MEDS ORDERED: METRONIDAZOLE500 MG PO (22:46)
[2020-01-01] MEDS ORDERED: MIDODRINE HCL2.5 MG PO (22:53)
[2020-01-01] MEDS ORDERED: ELIQUIS2.5 MG PO (22:54)
[2020-01-02] VITALS (9 sets, daily range): BP systolic 108–144; BP diastolic 42–77
[2020-01-02 00:10] LABS: CREATINE KINASE MB 1.3 ng/mL (0-5.0)
[2020-01-02 06:44] LABS: BASOPHILS # (AUTO) 0.1 (0.0-0.1); BASOPHILS % 0.6 % (0.0-1.0); EOSINOPHILS # (AUTO) 0.5 (0.0-0.4); EOSINOPHILS % 5.2 % (0.0-6.0); HEMATOCRIT 29.4 % (38.2-49.6); HEMOGLOBIN 8.9 g/dL (14.0-18.0); LYMPHOCYTES # (AUTO) 1.4 (1.0-3.2); LYMPHOCYTES % 13.4 % (18.0-39.1); MEAN CORPUSCULAR HEMOGLOBIN 28.1 pg (28-32); MEAN CORPUSCULAR HGB CONC 30.3 g/dL (31-35); MEAN CORPUSCULAR VOLUME 92.7 fL (81-99); MONOCYTES # (AUTO) 1.4 (0.2-0.8); MONOCYTES % 13.6 % (4.4-11.3); NEUTROPHILS # (AUTO) 6.9 (2.1-6.9); NEUTROPHILS % 66.5 % (38.7-80.0); PLATELET COUNT 88 x10e3/uL (140-360); RED BLOOD COUNT 3.17 x10e6/uL (4.3-5.7); RED CELL DISTRIBUTION WIDTH 19.9 % (11.7-14.4)
[2020-01-02 07:08] LABS: ALBUMIN 3.1 g/dL (3.5-5.0); ALBUMIN/GLOBULIN RATIO 0.8 (0.8-2.0); ANION GAP 20.4 mmol/L (8-16); CALCIUM 8.1 mg/dL (8.4-10.2); CREATININE, SERUM 9.68 mg/dL (0.72-1.25); POTASSIUM 5.4 mmol/L (3.5-5.1)
[2020-01-02] MEDS: INSULIN REGULAR, HUMAN 100 UNIT/1 ML 3ML VIAL SQ SCH ×7 (07:30→21:27)
[2020-01-02] MEDS: LEVOTHYROXINE SODIUM 88 MCG TAB PO SCH (07:30)
[2020-01-02] MEDS: PANTOPRAZOLE SOD 40 MG TABEC PO SCH (07:30)
[2020-01-02 07:35] LABS: CREATINE KINASE MB 1.1 ng/mL (0-5.0)
[2020-01-02] MEDS: NPH, HUMAN INSULIN ISOPHANE 100 UNIT/1 ML 3ML VIAL SQ SCH ×2 (08:00→17:00)
[2020-01-02] MEDS: DICYCLOMINE HCL 20 MG TAB PO SCH ×2 (09:00→17:00)
[2020-01-02] MEDS: METRONIDAZOLE 500 MG TAB PO SCH ×3 (09:00→20:06)
[2020-01-02] MEDS: APIXAB 2.5 MG TABLET PO SCH (09:00)
[2020-01-02] MEDS ORDERED: SODIUM CHLORIDE 0.9% 1000ML 2,000 ML ONE (14:26)
[2020-01-02] MEDS ORDERED: ALBUMIN 25% 12.5GM 0.25 GM/ML BTL IV PRN (14:30)
[2020-01-02] MEDS ORDERED: SODIUM CHLORIDE 0.9% 1000ML 2,000 ML IV PRN (14:30)
[2020-01-02] MEDS: MIDODRINE 2.5 MG TAB PO PRN (14:35)
[2020-01-02 15:01] LABS: BODY FLUID APPEARANCE TURBID; BODY FLUID COLOR RED; BODY FLUID TYPE PLEURAL
[2020-01-02 15:15] LABS: RBC,BODY FLUID 84348 cells/uL; WBC,BODY FLUID 693 cells/uL
[2020-01-02 15:27] LABS: EOSINOPHILS,BODY FLUID 6 %; LYMPHOCYTES,BODY FLUID 21 %; NEUTROPHILS,BODY FLUID 73 %
[2020-01-02 19:55] LABS: ABG PCO2 43 mmHg (35-45)
[2020-01-02 19:56] LABS: ABG HCO3 27 mmol/L (22-26); ABG PO2 102 mmHg (80-105); ABG TCO2 29
[2020-01-02] MEDS: TAMSULOSIN HCL 0.4 MG CAP PO SCH (20:06)
[2020-01-02] MEDS: ALLOPURINOL 300 MG TAB PO SCH (20:06)
[2020-01-02] MEDS: ACETAMINOPHEN 325 MG TAB PO PRN (20:06)
[2020-01-02] MEDS: MONTELUKAST SODIUM 10 MG TAB PO SCH (20:06)
[2020-01-03] VITALS (8 sets, daily range): BP systolic 95–104; BP diastolic 37–48
[2020-01-03 06:48] LABS: BASOPHILS # (AUTO) 0.1 (0.0-0.1); BASOPHILS % 0.6 % (0.0-1.0); EOSINOPHILS # (AUTO) 0.4 (0.0-0.4); HEMATOCRIT 27.8 % (38.2-49.6); HEMOGLOBIN 8.1 g/dL (14.0-18.0); LYMPHOCYTES # (AUTO) 1.2 (1.0-3.2); LYMPHOCYTES % 13.4 % (18.0-39.1); MEAN CORPUSCULAR HGB CONC 29.1 g/dL (31-35); MEAN CORPUSCULAR VOLUME 96.2 fL (81-99); MONOCYTES % 11.6 % (4.4-11.3); NEUTROPHILS % 69.7 % (38.7-80.0); PLATELET COUNT 121 x10e3/uL (140-360); RED BLOOD COUNT 2.89 x10e6/uL (4.3-5.7)
[2020-01-03 07:05] LABS: ANION GAP 18.7 mmol/L (8-16); CALCIUM 8.5 mg/dL (8.4-10.2); CREATININE, SERUM 5.27 mg/dL (0.72-1.25); POTASSIUM 4.7 mmol/L (3.5-5.1)
[2020-01-03] MEDS: PANTOPRAZOLE SOD 40 MG TABEC PO SCH (07:30)
[2020-01-03] MEDS: LEVOTHYROXINE SODIUM 88 MCG TAB PO SCH (07:30)
[2020-01-03] MEDS: INSULIN REGULAR, HUMAN 100 UNIT/1 ML 3ML VIAL SQ SCH ×7 (07:30→20:34)
[2020-01-03] MEDS: NPH, HUMAN INSULIN ISOPHANE 100 UNIT/1 ML 3ML VIAL SQ SCH ×2 (08:00→17:00)
[2020-01-03] MEDS: DICYCLOMINE HCL 20 MG TAB PO SCH ×2 (09:14→17:29)
[2020-01-03] MEDS: METRONIDAZOLE 500 MG TAB PO SCH ×3 (09:14→20:46)
[2020-01-03] MEDS ORDERED: VANCOMYCIN 1GM/NS 250 ML 250 ML IV ONE (11:50)
[2020-01-03] MEDS ORDERED: SODIUM CHLORIDE 0.9% 250ML 250 ML ONE (12:05)
[2020-01-03] MEDS: GABAPENTIN 100 MG CAP PO PRN (20:45)
[2020-01-03] MEDS: ALLOPURINOL 300 MG TAB PO SCH (20:46)
[2020-01-03] MEDS: MONTELUKAST SODIUM 10 MG TAB PO SCH (20:46)
[2020-01-03] MEDS: TAMSULOSIN HCL 0.4 MG CAP PO SCH (20:46)
[2020-01-04] VITALS (8 sets, daily range): BP systolic 91–112; BP diastolic 39–74
[2020-01-04] MEDS: ACETAMINOPHEN 325 MG TAB PO PRN (01:08)
[2020-01-04] MEDS: INSULIN REGULAR, HUMAN 100 UNIT/1 ML 3ML VIAL SQ SCH ×7 (07:30→21:21)
[2020-01-04] MEDS: NPH, HUMAN INSULIN ISOPHANE 100 UNIT/1 ML 3ML VIAL SQ SCH ×2 (08:00→17:00)
[2020-01-04] MEDS: PANTOPRAZOLE SOD 40 MG TABEC PO SCH (08:28)
[2020-01-04] MEDS: LEVOTHYROXINE SODIUM 88 MCG TAB PO SCH (08:28)
[2020-01-04] MEDS: DICYCLOMINE HCL 20 MG TAB PO SCH ×2 (09:14→17:29)
[2020-01-04] MEDS: METRONIDAZOLE 500 MG TAB PO SCH ×3 (09:14→21:18)
[2020-01-04] MEDS: MIDODRINE 2.5 MG TAB PO PRN (12:53)
[2020-01-04] MEDS: TAMSULOSIN HCL 0.4 MG CAP PO SCH (21:18)
[2020-01-04] MEDS: MONTELUKAST SODIUM 10 MG TAB PO SCH (21:19)
[2020-01-04] MEDS: ALLOPURINOL 300 MG TAB PO SCH (21:19)
[2020-01-05] VITALS (7 sets, daily range): BP systolic 94–109; BP diastolic 30–50
[2020-01-05 06:23] LABS: BASOPHILS # (AUTO) 0.1 (0.0-0.1); BASOPHILS % 0.5 % (0.0-1.0); EOSINOPHILS # (AUTO) 0.5 (0.0-0.4); EOSINOPHILS % 4.6 % (0.0-6.0); HEMATOCRIT 28.6 % (38.2-49.6); HEMOGLOBIN 8.3 g/dL (14.0-18.0); LYMPHOCYTES # (AUTO) 1.4 (1.0-3.2); LYMPHOCYTES % 14.3 % (18.0-39.1); MEAN CORPUSCULAR HEMOGLOBIN 27.7 pg (28-32); MEAN CORPUSCULAR VOLUME 95.3 fL (81-99); MONOCYTES # (AUTO) 1.1 (0.2-0.8); MONOCYTES % 10.4 % (4.4-11.3); PLATELET COUNT 175 x10e3/uL (140-360); RED CELL DISTRIBUTION WIDTH 20.4 % (11.7-14.4)
[2020-01-05 06:52] LABS: ANION GAP 14.3 mmol/L (8-16); CALCIUM 8.6 mg/dL (8.4-10.2); CREATININE, SERUM 4.81 mg/dL (0.72-1.25); POTASSIUM 4.3 mmol/L (3.5-5.1)
[2020-01-05] MEDS: INSULIN REGULAR, HUMAN 100 UNIT/1 ML 3ML VIAL SQ SCH ×7 (07:44→21:00)
[2020-01-05] MEDS: NPH, HUMAN INSULIN ISOPHANE 100 UNIT/1 ML 3ML VIAL SQ SCH ×2 (07:46→17:09)
[2020-01-05] MEDS: LEVOTHYROXINE SODIUM 88 MCG TAB PO SCH (07:55)
[2020-01-05] MEDS: PANTOPRAZOLE SOD 40 MG TABEC PO SCH (08:22)
[2020-01-05] MEDS: METRONIDAZOLE 500 MG TAB PO SCH ×3 (08:22→21:30)
[2020-01-05] MEDS: APIXAB 2.5 MG TABLET PO SCH (08:22)
[2020-01-05] MEDS: DICYCLOMINE HCL 20 MG TAB PO SCH ×2 (08:22→16:23)
[2020-01-05] MEDS: GABAPENTIN 100 MG CAP PO PRN (16:23)
[2020-01-05] MEDS: TAMSULOSIN HCL 0.4 MG CAP PO SCH (21:30)
[2020-01-05] MEDS: MONTELUKAST SODIUM 10 MG TAB PO SCH (21:31)
[2020-01-05] MEDS: ALLOPURINOL 300 MG TAB PO SCH (21:31)
[2020-01-06] VITALS (8 sets, daily range): BP systolic 90–107; BP diastolic 36–78
[2020-01-06] MEDS: INSULIN REGULAR, HUMAN 100 UNIT/1 ML 3ML VIAL SQ SCH ×7 (07:30→20:32)
[2020-01-06] MEDS: NPH, HUMAN INSULIN ISOPHANE 100 UNIT/1 ML 3ML VIAL SQ SCH ×2 (07:55→17:14)
[2020-01-06] MEDS: LEVOTHYROXINE SODIUM 88 MCG TAB PO SCH (07:56)
[2020-01-06] MEDS: PANTOPRAZOLE SOD 40 MG TABEC PO SCH (07:56)
[2020-01-06] MEDS: DICYCLOMINE HCL 20 MG TAB PO SCH ×2 (08:12→17:12)
[2020-01-06] MEDS: METRONIDAZOLE 500 MG TAB PO SCH ×3 (08:12→20:31)
[2020-01-06] MEDS: APIXAB 2.5 MG TABLET PO SCH (08:12)
[2020-01-06] MEDS ORDERED: ALBUMIN 25% 12.5GM 0.25 GM/ML BTL IV PRN (08:30)
[2020-01-06] MEDS: TAMSULOSIN HCL 0.4 MG CAP PO SCH (20:31)
[2020-01-06] MEDS: MONTELUKAST SODIUM 10 MG TAB PO SCH (20:31)
[2020-01-06] MEDS: ALLOPURINOL 300 MG TAB PO SCH (20:32)
[2020-01-07] VITALS: BP 100/41
[2020-01-07] MEDS: INSULIN REGULAR, HUMAN 100 UNIT/1 ML 3ML VIAL SQ SCH ×6 (07:30→17:28)
[2020-01-07 07:54] VITALS: BP 116/37
[2020-01-07 08:33] VITALS: BP 104/32
[2020-01-07] MEDS: APIXAB 2.5 MG TABLET PO SCH (09:30)
[2020-01-07] MEDS: DICYCLOMINE HCL 20 MG TAB PO SCH ×2 (09:30→17:07)
[2020-01-07] MEDS: NPH, HUMAN INSULIN ISOPHANE 100 UNIT/1 ML 3ML VIAL SQ SCH ×2 (09:35→17:00)
[2020-01-07] MEDS: METRONIDAZOLE 500 MG TAB PO SCH ×2 (09:35→16:00)
[2020-01-07] MEDS: LEVOTHYROXINE SODIUM 88 MCG TAB PO SCH (09:35)
[2020-01-07] MEDS: PANTOPRAZOLE SOD 40 MG TABEC PO SCH (09:35)
[2020-01-07 11:26] VITALS: BP 110/56
[2020-01-07] MEDS ORDERED: ONDANSETRON HCL 4 MG ORAL DISINTEGRATING TAB PO PRN (13:30)
[2020-01-07 15:37] VITALS: BP 93/42
[2020-01-07 16:29] VITALS: BP 102/51
== END 2020-01-07 20:00 | disposition home or self-care (01) | DRG 640 ==
LOC: ER 17:21 → ERHOLD 21:06 → MED/SURG3 21:57
PROVIDERS: ADMIT Internal Medicine; ATTEND Internal Medicine
PROC: 0W9B3ZZ Drainage of Left Pleural Cavity, Percutaneous Approach (ICD-10-PCS; principal; 2020-01-02)
PROC: 5A1D70Z Performance of Urinary Filtration, Intermittent, Less than 6 Hours Per Day (ICD-10-PCS; 2020-01-02)
PROC: 5A09357 Assistance with Respiratory Ventilation, Less than 24 Consecutive Hours, Continuous Positive Airway Pressure (ICD-10-PCS; 2020-01-02)
PROC: 5A1D70Z Performance of Urinary Filtration, Intermittent, Less than 6 Hours Per Day (ICD-10-PCS; 2020-01-04)
PROC: 5A1D70Z Performance of Urinary Filtration, Intermittent, Less than 6 Hours Per Day (ICD-10-PCS; 2020-01-06)
DX: E87.70 Fluid overload, unspecified (principal); N18.6 End stage renal disease; J96.01 Acute respiratory failure with hypoxia; I12.0 Hypertensive chronic kidney disease with stage 5 chronic kidney disease or end stage renal disease; J91.8 Pleural effusion in other conditions classified elsewhere; E11.52 Type 2 diabetes mellitus with diabetic peripheral angiopathy with gangrene; I96 Gangrene, not elsewhere classified; E11.22 Type 2 diabetes mellitus with diabetic chronic kidney disease; K21.9 Gastro-esophageal reflux disease without esophagitis; G47.33 Obstructive sleep apnea (adult) (pediatric); E66.01 Morbid (severe) obesity due to excess calories; D64.9 Anemia, unspecified; M10.9 Gout, unspecified; D29.1 Benign neoplasm of prostate; Z99.2 Dependence on renal dialysis; Z68.33 Body mass index [BMI] 33.0-33.9, adult; Z83.3 Family history of diabetes mellitus; Z88.1 Allergy status to other antibiotic agents; Z89.612 Acquired absence of left leg above knee; Z11.59 Encounter for screening for other viral diseases; Z79.4 Long term (current) use of insulin
CPT/HCPCS: 32555; 36415; 36600; 71045; 71046; 71250; 74470; 80048; 80053; 82150; 82550; 82553; 82805; 82945; 82948; 83605; 83615; 83735; 83880; 84157; 84484; 85025; 85610; 85730; 86704; 86705; 87040; 87070; 87071; 87102; 87116; 87186; 87205; 87206; 87340; 88112; 88305; 89051; 90962; 93005; 94660; 96372; 97139; 99251; 99284; J2405; J3370; J7030; J7050; U0002

== ENCOUNTER 2020-05-27 18:04 | Inpatient (IN) | payer MEDICARE ==
[~2020-05-27] VITALS: Ht 185.4 cm; Wt 106.3 kg
[~2020-05-27 18:04] MED LIST changes: +DICYCLOMINE HCL20 MG PO; +ELIQUIS2.5 MG PO; +METRONIDAZOLE500 MG PO; +MIDODRINE HCL2.5 MG PO
[2020-05-27] MEDS ORDERED: VANCOMYCIN 1GM/NS 250 ML 250 ML IV ONE (18:30)
[2020-05-27] MEDS ORDERED: PIPERACILLIN/TAZOBACTAM 2.25 GM in SODIUM CHLORIDE 0.9% 50ML 50 ML IV SCH (18:30)
[2020-05-27 18:47] LABS: BASOPHILS % 0.5 % (0.0-1.0); EOSINOPHILS # (AUTO) 0.2 (0.0-0.4); EOSINOPHILS % 3.1 % (0.0-6.0); HEMATOCRIT 29.9 % (38.2-49.6); HEMOGLOBIN 8.8 g/dL (14.0-18.0); LYMPHOCYTES # (AUTO) 0.8 (1.0-3.2); LYMPHOCYTES % 13.3 % (18.0-39.1); MEAN CORPUSCULAR HEMOGLOBIN 26.3 pg (28-32); MEAN CORPUSCULAR HGB CONC 29.4 g/dL (31-35); MEAN CORPUSCULAR VOLUME 89.5 fL (81-99); MONOCYTES # (AUTO) 0.7 (0.2-0.8); MONOCYTES % 11.2 % (4.4-11.3); NEUTROPHILS # (AUTO) 4.2 (2.1-6.9); NEUTROPHILS % 71.6 % (38.7-80.0); PLATELET COUNT 136 x10e3/uL (140-360); RED BLOOD COUNT 3.34 x10e6/uL (4.3-5.7); RED CELL DISTRIBUTION WIDTH 17.7 % (11.7-14.4)
[2020-05-27 18:56] LABS: INR 1.15; PROTHROMBIN TIME 15.5 seconds (11.9-14.5)
[2020-05-27 18:57] LABS: PARTIAL THROMBOPLASTIN TIME 38.6 seconds (23.8-35.5)
[2020-05-27 19:05] LABS: ALBUMIN 2.3 g/dL (3.5-5.0); ALBUMIN/GLOBULIN RATIO 0.4 (0.8-2.0); ANION GAP 15.8 mmol/L (8-16); CALCIUM 8.2 mg/dL (8.4-10.2); CREATININE, SERUM 2.52 mg/dL (0.72-1.25); POTASSIUM 3.8 mmol/L (3.5-5.1)
[2020-05-27] MEDS ORDERED: SODIUM CHLORIDE FLUSH 10 ML SYR INJ PRN (19:30)
[2020-05-27] MEDS ORDERED: DEXTROSE 50% SYRINGE 50 ML IV PRN (19:30)
[2020-05-27] MEDS: INSULIN REGULAR, HUMAN 100 UNIT/1 ML 3ML VIAL SQ SCH (21:30)
[2020-05-28] VITALS (8 sets, daily range): BP systolic 90–112; BP diastolic 43–57
[2020-05-28] MEDS ORDERED: GABAPENTIN300 MG PO (02:55)
[2020-05-28] MEDS ORDERED: VITAMIN C 250250 MG PO (02:55)
[2020-05-28] MEDS ORDERED: AMIODARONE HCL100 MG PO (02:55)
[2020-05-28 05:49] LABS: BASOPHILS % 0.4 % (0.0-1.0); EOSINOPHILS # (AUTO) 0.2 (0.0-0.4); HEMATOCRIT 27.3 % (38.2-49.6); LYMPHOCYTES # (AUTO) 0.6 (1.0-3.2); LYMPHOCYTES % 11.8 % (18.0-39.1); MEAN CORPUSCULAR HEMOGLOBIN 26.1 pg (28-32); MEAN CORPUSCULAR HGB CONC 29.3 g/dL (31-35); MEAN CORPUSCULAR VOLUME 89.2 fL (81-99); MONOCYTES # (AUTO) 0.5 (0.2-0.8); MONOCYTES % 10.5 % (4.4-11.3); NEUTROPHILS # (AUTO) 3.5 (2.1-6.9); NEUTROPHILS % 72.9 % (38.7-80.0); PLATELET COUNT 130 x10e3/uL (140-360); RED BLOOD COUNT 3.06 x10e6/uL (4.3-5.7); RED CELL DISTRIBUTION WIDTH 17.4 % (11.7-14.4)
[2020-05-28 06:09] LABS: ALBUMIN 2.2 g/dL (3.5-5.0); ALBUMIN/GLOBULIN RATIO 0.5 (0.8-2.0); CALCIUM 8.3 mg/dL (8.4-10.2); CREATININE, SERUM 3.21 mg/dL (0.72-1.25)
[2020-05-28] MEDS: LEVOTHYROXINE SODIUM 88 MCG TAB PO SCH (06:13)
[2020-05-28] MEDS: ONDANSETRON HCL INJ 2MG/ML 2ML 2 MG/ML VIAL IV PRN (06:14)
[2020-05-28] MEDS: INSULIN REGULAR, HUMAN 100 UNIT/1 ML 3ML VIAL SQ SCH ×4 (09:04→21:00)
[2020-05-28] MEDS: PANTOPRAZOLE SOD 40 MG TABEC PO SCH (09:10)
[2020-05-28] MEDS: PIPERACILLIN/TAZOBACTAM 2.25 GM in SODIUM CHLORIDE 0.9% 50ML 50 ML IV SCH ×2 (09:10→21:33)
[2020-05-28] MEDS: AMIODARONE HCL 200 MG TAB PO SCH (09:11)
[2020-05-28] MEDS ORDERED: SODIUM CHLORIDE 0.9% 250ML 250 ML ONE (09:46)
[2020-05-28] MEDS: TAMSULOSIN HCL 0.4 MG CAP PO SCH (21:33)
[2020-05-28] MEDS: GABAPENTIN 300 MG CAP PO SCH (21:33)
[2020-05-28] MEDS: MONTELUKAST SODIUM 10 MG TAB PO SCH (21:33)
[2020-05-28] MEDS: ALLOPURINOL 300 MG TAB PO SCH (21:33)
[2020-05-29] VITALS: BP 108/91
[2020-05-29 04:00] VITALS: BP 108/39
[2020-05-29] MEDS: LEVOTHYROXINE SODIUM 88 MCG TAB PO SCH (05:42)
[2020-05-29] MEDS ORDERED: SODIUM CHLORIDE 0.9% 1000ML 2,000 ML ONE (08:09)
[2020-05-29] MEDS: PANTOPRAZOLE SOD 40 MG TABEC PO SCH (08:22)
[2020-05-29] MEDS: MIDODRINE 2.5 MG TAB PO PRN (08:22)
[2020-05-29] MEDS: INSULIN REGULAR, HUMAN 100 UNIT/1 ML 3ML VIAL SQ SCH ×4 (08:29→21:00)
[2020-05-29 08:30] VITALS: BP 105/60
[2020-05-29] MEDS: AMIODARONE HCL 200 MG TAB PO SCH (09:45)
[2020-05-29] MEDS ORDERED: EPOETIN ALFA-EPBX 10,000 UNIT/ML VIAL SC SCH (12:00)
[2020-05-29] MEDS: PIPERACILLIN/TAZOBACTAM 2.25 GM in SODIUM CHLORIDE 0.9% 50ML 50 ML IV SCH ×2 (16:01→21:47)
[2020-05-29 17:22] VITALS: BP 106/65
[2020-05-29] MEDS ORDERED: EPOETIN ALFA-EPBX 10,000 UNIT/ML VIAL SC ONE (18:00)
[2020-05-29 20:00] VITALS: BP 88/40
[2020-05-29] MEDS ORDERED: SODIUM CHLORIDE 0.9% 1000ML 1,000 ML IV SCH (20:50)
[2020-05-29] MEDS ORDERED: SODIUM CHLORIDE 0.9% 1000ML 1,000 ML ONE (21:09)
[2020-05-29] MEDS: ALLOPURINOL 300 MG TAB PO SCH (21:47)
[2020-05-29] MEDS: GABAPENTIN 300 MG CAP PO SCH (21:47)
[2020-05-29] MEDS: MONTELUKAST SODIUM 10 MG TAB PO SCH (21:47)
[2020-05-29] MEDS: TAMSULOSIN HCL 0.4 MG CAP PO SCH (21:47)
[2020-05-29 22:22] VITALS: BP 88/40
[2020-05-30] VITALS (9 sets, daily range): BP systolic 89–110; BP diastolic 21–52
[2020-05-30] MEDS: LEVOTHYROXINE SODIUM 88 MCG TAB PO SCH (05:05)
[2020-05-30] MEDS: INSULIN REGULAR, HUMAN 100 UNIT/1 ML 3ML VIAL SQ SCH ×4 (07:30→21:39)
[2020-05-30 09:11] LABS: BASOPHILS % 0.8 % (0.0-1.0); EOSINOPHILS # (AUTO) 0.2 (0.0-0.4); EOSINOPHILS % 4.5 % (0.0-6.0); HEMATOCRIT 27.7 % (38.2-49.6); LYMPHOCYTES # (AUTO) 0.8 (1.0-3.2); LYMPHOCYTES % 15.2 % (18.0-39.1); MEAN CORPUSCULAR HEMOGLOBIN 26.3 pg (28-32); MEAN CORPUSCULAR HGB CONC 28.9 g/dL (31-35); MEAN CORPUSCULAR VOLUME 91.1 fL (81-99); MONOCYTES # (AUTO) 0.7 (0.2-0.8); MONOCYTES % 14.5 % (4.4-11.3); NEUTROPHILS # (AUTO) 3.3 (2.1-6.9); NEUTROPHILS % 64.4 % (38.7-80.0); PLATELET COUNT 116 x10e3/uL (140-360); RED BLOOD COUNT 3.04 x10e6/uL (4.3-5.7); RED CELL DISTRIBUTION WIDTH 17.6 % (11.7-14.4)
[2020-05-30] MEDS ORDERED: DIGOXIN 0.125 MG TAB PO ONE (09:15)
[2020-05-30 09:28] LABS: ANION GAP 15.1 mmol/L (8-16); CALCIUM 8.4 mg/dL (8.4-10.2); CREATININE, SERUM 3.25 mg/dL (0.72-1.25); POTASSIUM 4.1 mmol/L (3.5-5.1)
[2020-05-30] MEDS ORDERED: SODIUM CHLORIDE 0.9% 250ML 250 ML IV SCH (09:30)
[2020-05-30] MEDS ORDERED: SODIUM CHLORIDE 0.9% 250ML 250 ML IV ONE (09:30)
[2020-05-30] MEDS: PANTOPRAZOLE SOD 40 MG TABEC PO SCH (09:43)
[2020-05-30] MEDS: PIPERACILLIN/TAZOBACTAM 2.25 GM in SODIUM CHLORIDE 0.9% 50ML 50 ML IV SCH ×2 (09:44→21:39)
[2020-05-30] MEDS: AMIODARONE HCL 200 MG TAB PO SCH (09:44)
[2020-05-30] MEDS: ALLOPURINOL 300 MG TAB PO SCH (21:39)
[2020-05-30] MEDS: MONTELUKAST SODIUM 10 MG TAB PO SCH (21:39)
[2020-05-30] MEDS: GABAPENTIN 300 MG CAP PO SCH (21:39)
[2020-05-30] MEDS: TAMSULOSIN HCL 0.4 MG CAP PO SCH (21:39)
[2020-05-31] VITALS (7 sets, daily range): BP systolic 86–119; BP diastolic 33–55
[2020-05-31] MEDS: LEVOTHYROXINE SODIUM 88 MCG TAB PO SCH (05:39)
[2020-05-31] MEDS: INSULIN REGULAR, HUMAN 100 UNIT/1 ML 3ML VIAL SQ SCH ×4 (07:30→23:17)
[2020-05-31] MEDS: PANTOPRAZOLE SOD 40 MG TABEC PO SCH (09:53)
[2020-05-31] MEDS: PIPERACILLIN/TAZOBACTAM 2.25 GM in SODIUM CHLORIDE 0.9% 50ML 50 ML IV SCH ×2 (09:54→20:00)
[2020-05-31] MEDS: AMIODARONE HCL 200 MG TAB PO SCH ×2 (09:54→21:00)
[2020-05-31] MEDS: APIXAB 2.5 MG TABLET PO SCH ×2 (09:54→17:46)
[2020-05-31] MEDS: TAMSULOSIN HCL 0.4 MG CAP PO SCH (21:00)
[2020-05-31] MEDS: GABAPENTIN 300 MG CAP PO SCH (21:31)
[2020-05-31] MEDS: MONTELUKAST SODIUM 10 MG TAB PO SCH (21:31)
[2020-05-31] MEDS: ALLOPURINOL 300 MG TAB PO SCH (21:31)
[2020-06-01] VITALS (8 sets, daily range): BP systolic 112–120; BP diastolic 48–70
[2020-06-01 05:07] LABS: BASOPHILS % 0.8 % (0.0-1.0); EOSINOPHILS # (AUTO) 0.2 (0.0-0.4); HEMATOCRIT 26.4 % (38.2-49.6); HEMOGLOBIN 7.7 g/dL (14.0-18.0); LYMPHOCYTES % 19.3 % (18.0-39.1); MEAN CORPUSCULAR HEMOGLOBIN 26.2 pg (28-32); MEAN CORPUSCULAR HGB CONC 29.2 g/dL (31-35); MEAN CORPUSCULAR VOLUME 89.8 fL (81-99); MONOCYTES # (AUTO) 0.7 (0.2-0.8); MONOCYTES % 13.6 % (4.4-11.3); NEUTROPHILS # (AUTO) 3.2 (2.1-6.9); NEUTROPHILS % 61.7 % (38.7-80.0); PLATELET COUNT 114 x10e3/uL (140-360); RED BLOOD COUNT 2.94 x10e6/uL (4.3-5.7); RED CELL DISTRIBUTION WIDTH 17.7 % (11.7-14.4)
[2020-06-01 05:31] LABS: ANION GAP 16.8 mmol/L (8-16); CALCIUM 8.2 mg/dL (8.4-10.2); CREATININE, SERUM 4.98 mg/dL (0.72-1.25); MAGNESIUM 1.7 MG/DL (1.3-2.1); PHOSPHORUS 4.9 MG/DL (2.3-4.7); POTASSIUM 4.8 mmol/L (3.5-5.1)
[2020-06-01] MEDS: LEVOTHYROXINE SODIUM 88 MCG TAB PO SCH (06:00)
[2020-06-01 06:40] LABS: ANISOCYTOSIS SLIGHT; HYPOCHROMASIA SLIGHT; PLATELET ESTIMATE ADEQUATE; PLATELET MORPHOLOGY COMMENT NORMAL
[2020-06-01 06:41] LABS: OVALOCYTES FEW
[2020-06-01 06:42] LABS: ELLIPTOCYTE, RBC SLIGHT; RBC MORPHOLOGY COMMENT NORMAL
[2020-06-01] MEDS: INSULIN REGULAR, HUMAN 100 UNIT/1 ML 3ML VIAL SQ SCH ×4 (07:30→21:50)
[2020-06-01] MEDS: AMIODARONE HCL 200 MG TAB PO SCH ×2 (08:48→21:51)
[2020-06-01] MEDS: PIPERACILLIN/TAZOBACTAM 2.25 GM in SODIUM CHLORIDE 0.9% 50ML 50 ML IV SCH ×2 (08:48→20:55)
[2020-06-01] MEDS: PANTOPRAZOLE SOD 40 MG TABEC PO SCH (08:48)
[2020-06-01] MEDS: APIXAB 2.5 MG TABLET PO SCH ×2 (08:48→17:06)
[2020-06-01] MEDS: MIDODRINE 2.5 MG TAB PO PRN (12:05)
[2020-06-01] MEDS ORDERED: MANNITOL 25% 12.5GM/50 ML VIAL IV PRN (13:00)
[2020-06-01] MEDS ORDERED: SODIUM CHLORIDE 0.9% 1000ML 2,000 ML IV PRN (13:00)
[2020-06-01] MEDS ORDERED: ALBUMIN 25% 12.5GM 0.25 GM/ML BTL IV PRN (13:00)
[2020-06-01] MEDS ORDERED: SODIUM CHLORIDE 0.9% 1000ML 1,000 ML ONE (13:04)
[2020-06-01] MEDS ORDERED: EPOETIN ALFA-EPBX 10,000 UNIT/ML VIAL SC NR (16:00)
[2020-06-01] MEDS: TAMSULOSIN HCL 0.4 MG CAP PO SCH (21:00)
[2020-06-01] MEDS: GABAPENTIN 300 MG CAP PO SCH (21:51)
[2020-06-01] MEDS: ALLOPURINOL 300 MG TAB PO SCH (21:51)
[2020-06-01] MEDS: MONTELUKAST SODIUM 10 MG TAB PO SCH (21:51)
[2020-06-02] VITALS (8 sets, daily range): BP systolic 92–127; BP diastolic 46–62
[2020-06-02] MEDS: LEVOTHYROXINE SODIUM 88 MCG TAB PO SCH (06:19)
[2020-06-02] MEDS: INSULIN REGULAR, HUMAN 100 UNIT/1 ML 3ML VIAL SQ SCH ×4 (08:30→21:30)
[2020-06-02] MEDS: PIPERACILLIN/TAZOBACTAM 2.25 GM in SODIUM CHLORIDE 0.9% 50ML 50 ML IV SCH ×2 (08:44→20:48)
[2020-06-02] MEDS: APIXAB 2.5 MG TABLET PO SCH (08:44)
[2020-06-02] MEDS: PANTOPRAZOLE SOD 40 MG TABEC PO SCH (08:44)
[2020-06-02] MEDS: AMIODARONE HCL 200 MG TAB PO SCH ×2 (08:44→20:48)
[2020-06-02] MEDS: ENOXAPARIN SOD INJ 40 MG/0.4 ML SYR SC SCH (20:48)
[2020-06-02] MEDS: ALLOPURINOL 300 MG TAB PO SCH (20:48)
[2020-06-02] MEDS: MELATONIN 5 MG TABLET PO PRN (20:48)
[2020-06-02] MEDS: ACETAMINOPHEN 325 MG TAB PO PRN (20:48)
[2020-06-02] MEDS: TAMSULOSIN HCL 0.4 MG CAP PO SCH (20:48)
[2020-06-02] MEDS: MONTELUKAST SODIUM 10 MG TAB PO SCH (20:48)
[2020-06-02] MEDS: GABAPENTIN 300 MG CAP PO SCH (20:48)
[2020-06-02] MEDS ORDERED: ENOXAPARIN INJ 80 MG/0.8 ML SYR SC SCH ×2 (21:00)
[2020-06-03] VITALS (9 sets, daily range): BP systolic 80–149; BP diastolic 41–117
[2020-06-03] MEDS: LEVOTHYROXINE SODIUM 88 MCG TAB PO SCH (07:00)
[2020-06-03] MEDS: INSULIN REGULAR, HUMAN 100 UNIT/1 ML 3ML VIAL SQ SCH ×4 (08:30→20:51)
[2020-06-03] MEDS: PANTOPRAZOLE SOD 40 MG TABEC PO SCH (08:30)
[2020-06-03] MEDS: AMIODARONE HCL 200 MG TAB PO SCH ×2 (09:00→20:43)
[2020-06-03] MEDS: ENOXAPARIN SOD INJ 40 MG/0.4 ML SYR SC SCH (09:00)
[2020-06-03] MEDS: MIDODRINE 2.5 MG TAB PO PRN (09:14)
[2020-06-03] MEDS: PIPERACILLIN/TAZOBAC 3.375 GM in SODIUM CHLORIDE 0.9% 50ML 50 ML IV SCH (13:45)
[2020-06-03 19:27] LABS: BASOPHILS # (AUTO) 0.1 (0.0-0.1); BASOPHILS % 1.1 % (0.0-1.0); EOSINOPHILS # (AUTO) 0.2 (0.0-0.4); EOSINOPHILS % 3.2 % (0.0-6.0); LYMPHOCYTES # (AUTO) 0.8 (1.0-3.2); LYMPHOCYTES % 17.8 % (18.0-39.1); MEAN CORPUSCULAR HEMOGLOBIN 26.1 pg (28-32); MEAN CORPUSCULAR HGB CONC 28.6 g/dL (31-35); MEAN CORPUSCULAR VOLUME 91.2 fL (81-99); MONOCYTES # (AUTO) 0.5 (0.2-0.8); MONOCYTES % 10.5 % (4.4-11.3); NEUTROPHILS # (AUTO) 3.1 (2.1-6.9); PLATELET COUNT 144 x10e3/uL (140-360); RED BLOOD COUNT 3.07 x10e6/uL (4.3-5.7); RED CELL DISTRIBUTION WIDTH 17.7 % (11.7-14.4)
[2020-06-03 19:42] LABS: CALCIUM 8.7 mg/dL (8.4-10.2); CREATININE, SERUM 3.12 mg/dL (0.72-1.25)
[2020-06-03] MEDS: MELATONIN 5 MG TABLET PO PRN (20:43)
[2020-06-03] MEDS: ACETAMINOPHEN 325 MG TAB PO PRN (20:43)
[2020-06-03] MEDS: TAMSULOSIN HCL 0.4 MG CAP PO SCH (20:43)
[2020-06-03] MEDS: ALLOPURINOL 300 MG TAB PO SCH (20:43)
[2020-06-03] MEDS: MONTELUKAST SODIUM 10 MG TAB PO SCH (20:43)
[2020-06-03] MEDS: GABAPENTIN 300 MG CAP PO SCH (20:43)
[2020-06-03] MEDS ORDERED: SODIUM CHLORIDE 0.9% 1000ML 500 ML IV STA (21:00)
[2020-06-03] MEDS ORDERED: SODIUM CHLORIDE 0.9% 1000ML 500 ML IV ONE (21:15)
[2020-06-04] VITALS (8 sets, daily range): BP systolic 92–122; BP diastolic 31–64
[2020-06-04] MEDS: PIPERACILLIN/TAZOBAC 3.375 GM in SODIUM CHLORIDE 0.9% 50ML 50 ML IV SCH ×2 (01:30→13:00)
[2020-06-04] MEDS: LEVOTHYROXINE SODIUM 88 MCG TAB PO SCH (04:18)
[2020-06-04] MEDS: INSULIN REGULAR, HUMAN 100 UNIT/1 ML 3ML VIAL SQ SCH ×4 (07:30→21:20)
[2020-06-04] MEDS: PANTOPRAZOLE SOD 40 MG TABEC PO SCH (08:55)
[2020-06-04] MEDS: AMIODARONE HCL 200 MG TAB PO SCH ×2 (08:55→21:30)
[2020-06-04] MEDS ORDERED: MIDAZOLAM HCL 2 MG/2 ML VIAL ONE (11:59)
[2020-06-04] MEDS ORDERED: FENTANYL CITRATE/PF 100MCG/2 ML INJ ONE (11:59)
[2020-06-04] MEDS ORDERED: LIDOCAINE HCL 2% LOCAL INJ 5 ML SDV VIAL INJ ONE (13:34)
[2020-06-04] MEDS ORDERED: SEVOFLURANE INHAL SOLN 250 ML PEN BTL ONE (13:34)
[2020-06-04] MEDS ORDERED: DEXAMETHASONE SOD PHOS INJ 4 MG/ML VIAL ONE (13:34)
[2020-06-04] MEDS ORDERED: ONDANSETRON HCL INJ 2MG/ML 2ML 2 MG/ML VIAL ONE (13:34)
[2020-06-04] MEDS ORDERED: PROPOFOL IV EMULSION 10 MG/ML 20 ML VIAL ONE (13:34)
[2020-06-04] MEDS ORDERED: PIPERACILLIN/TAZOBAC 3.375 GM VIAL ONE (17:47)
[2020-06-04] MEDS ORDERED: ACETAMINOPHEN 1000 MG/100 ML IV PRN (19:15)
[2020-06-04] MEDS: TAMSULOSIN HCL 0.4 MG CAP PO SCH (21:30)
[2020-06-04] MEDS: MONTELUKAST SODIUM 10 MG TAB PO SCH (21:30)
[2020-06-04] MEDS: ALLOPURINOL 300 MG TAB PO SCH (21:30)
[2020-06-04] MEDS: GABAPENTIN 300 MG CAP PO SCH (21:30)
[2020-06-04] MEDS: HYDROMORPHONE 1MG/1ML INJ IV PRN (21:37)
[2020-06-05] VITALS (10 sets, daily range): BP systolic 100–124; BP diastolic 44–67
[2020-06-05] MEDS ORDERED: SODIUM CHLORIDE 0.9% 50ML 50 ML ONE (00:35)
[2020-06-05] MEDS: HYDROMORPHONE 1MG/1ML INJ IV PRN ×4 (02:30→19:01)
[2020-06-05] MEDS: PIPERACILLIN/TAZOBAC 3.375 GM in SODIUM CHLORIDE 0.9% 50ML 50 ML IV SCH (02:52)
[2020-06-05 05:54] LABS: BASOPHILS % 0.3 % (0.0-1.0); EOSINOPHILS # (AUTO) 0.2 (0.0-0.4); EOSINOPHILS % 3.2 % (0.0-6.0); HEMOGLOBIN 7.7 g/dL (14.0-18.0); LYMPHOCYTES # (AUTO) 0.6 (1.0-3.2); MEAN CORPUSCULAR HEMOGLOBIN 26.7 pg (28-32); MEAN CORPUSCULAR HGB CONC 28.5 g/dL (31-35); MEAN CORPUSCULAR VOLUME 93.8 fL (81-99); MONOCYTES # (AUTO) 0.2 (0.2-0.8); MONOCYTES % 3.5 % (4.4-11.3); NEUTROPHILS # (AUTO) 5.2 (2.1-6.9); NEUTROPHILS % 82.2 % (38.7-80.0); PLATELET COUNT 139 x10e3/uL (140-360); RED BLOOD COUNT 2.88 x10e6/uL (4.3-5.7); RED CELL DISTRIBUTION WIDTH 17.6 % (11.7-14.4)
[2020-06-05 06:10] LABS: ALBUMIN 2.5 g/dL (3.5-5.0); ALBUMIN/GLOBULIN RATIO 0.5 (0.8-2.0); CALCIUM 8.5 mg/dL (8.4-10.2); CREATININE, SERUM 4.85 mg/dL (0.72-1.25); MAGNESIUM 1.8 MG/DL (1.3-2.1)
[2020-06-05] MEDS: LEVOTHYROXINE SODIUM 88 MCG TAB PO SCH (06:51)
[2020-06-05] MEDS: INSULIN REGULAR, HUMAN 100 UNIT/1 ML 3ML VIAL SQ SCH ×4 (07:10→21:00)
[2020-06-05] MEDS ORDERED: DEXTROSE 50% SYRINGE 50 ML IV PRN (08:00)
[2020-06-05] MEDS ORDERED: INSULIN REGULAR, HUMAN 100 UNIT/1 ML 3ML VIAL SQ NR ×2 (08:10→09:45)
[2020-06-05] MEDS: AMIODARONE HCL 200 MG TAB PO SCH ×2 (08:23→21:14)
[2020-06-05] MEDS: PANTOPRAZOLE SOD 40 MG TABEC PO SCH (08:23)
[2020-06-05 09:01] LABS: BASOPHILS % 0.1 % (0.0-1.0); HEMATOCRIT 27.8 % (38.2-49.6); HEMOGLOBIN 7.9 g/dL (14.0-18.0); LYMPHOCYTES # (AUTO) 0.7 (1.0-3.2); LYMPHOCYTES % 10.3 % (18.0-39.1); MEAN CORPUSCULAR HEMOGLOBIN 26.3 pg (28-32); MEAN CORPUSCULAR HGB CONC 28.4 g/dL (31-35); MEAN CORPUSCULAR VOLUME 92.7 fL (81-99); MONOCYTES # (AUTO) 0.4 (0.2-0.8); MONOCYTES % 5.7 % (4.4-11.3); NEUTROPHILS # (AUTO) 5.6 (2.1-6.9); NEUTROPHILS % 83.3 % (38.7-80.0); PLATELET COUNT 132 x10e3/uL (140-360); RED CELL DISTRIBUTION WIDTH 18.2 % (11.7-14.4)
[2020-06-05 09:18] LABS: ANION GAP 20.9 mmol/L (8-16); CALCIUM 8.5 mg/dL (8.4-10.2); CREATININE, SERUM 4.98 mg/dL (0.72-1.25); POTASSIUM 4.9 mmol/L (3.5-5.1)
[2020-06-05] MEDS: MIDODRINE 2.5 MG TAB PO PRN (10:05)
[2020-06-05] MEDS: METOPROLOL TARTRATE 25 MG TAB PO SCH ×2 (12:00→17:22)
[2020-06-05] MEDS: ACETAMINOPHEN 325 MG TAB PO PRN ×2 (13:45→22:39)
[2020-06-05] MEDS: HYDROCODONE/APAP 7.5MG-325MG 1 EA TAB PO PRN (14:59)
[2020-06-05] MEDS: EPOETIN ALFA-EPBX 10,000 UNIT/ML VIAL SC SCH (16:01)
[2020-06-05] MEDS: MONTELUKAST SODIUM 10 MG TAB PO SCH (21:14)
[2020-06-05] MEDS: TAMSULOSIN HCL 0.4 MG CAP PO SCH (21:14)
[2020-06-05] MEDS: GABAPENTIN 300 MG CAP PO SCH (21:14)
[2020-06-05] MEDS: ALLOPURINOL 300 MG TAB PO SCH (21:14)
[2020-06-06] VITALS (8 sets, daily range): BP systolic 87–138; BP diastolic 47–97
[2020-06-06] MEDS: LEVOTHYROXINE SODIUM 88 MCG TAB PO SCH (05:08)
[2020-06-06] MEDS: METOPROLOL TARTRATE 25 MG TAB PO SCH ×4 (05:08→16:38)
[2020-06-06] MEDS: PANTOPRAZOLE SOD 40 MG TABEC PO SCH (07:30)
[2020-06-06 08:18] LABS: BASOPHILS % 0.6 % (0.0-1.0); EOSINOPHILS # (AUTO) 0.1 (0.0-0.4); EOSINOPHILS % 1.2 % (0.0-6.0); HEMATOCRIT 27.8 % (38.2-49.6); HEMOGLOBIN 7.9 g/dL (14.0-18.0); LYMPHOCYTES # (AUTO) 1.5 (1.0-3.2); LYMPHOCYTES % 21.9 % (18.0-39.1); MEAN CORPUSCULAR HEMOGLOBIN 26.8 pg (28-32); MEAN CORPUSCULAR HGB CONC 28.4 g/dL (31-35); MEAN CORPUSCULAR VOLUME 94.2 fL (81-99); MONOCYTES # (AUTO) 0.9 (0.2-0.8); MONOCYTES % 13.5 % (4.4-11.3); NEUTROPHILS # (AUTO) 4.3 (2.1-6.9); NEUTROPHILS % 62.2 % (38.7-80.0); PLATELET COUNT 130 x10e3/uL (140-360); RED BLOOD COUNT 2.95 x10e6/uL (4.3-5.7)
[2020-06-06] MEDS: HYDROCODONE/APAP 7.5MG-325MG 1 EA TAB PO PRN (08:48)
[2020-06-06] MEDS: AMIODARONE HCL 200 MG TAB PO SCH ×2 (08:48→20:46)
[2020-06-06 08:55] LABS: ANION GAP 18.2 mmol/L (8-16); CALCIUM 8.7 mg/dL (8.4-10.2); CREATININE, SERUM 3.43 mg/dL (0.72-1.25); POTASSIUM 4.2 mmol/L (3.5-5.1)
[2020-06-06] MEDS: ONDANSETRON HCL INJ 2MG/ML 2ML 2 MG/ML VIAL IV PRN ×2 (10:29→14:58)
[2020-06-06] MEDS: HYDROMORPHONE 1MG/1ML INJ IV PRN ×2 (10:29→14:57)
[2020-06-06 10:53] LABS: ANISOCYTOSIS MODERATE; HYPOCHROMASIA MODERATE; PLATELET ESTIMATE ADEQUATE; PLATELET MORPHOLOGY COMMENT NORMAL; RBC MORPHOLOGY COMMENT ABNORMAL
[2020-06-06 10:54] LABS: MICROCYTOSIS SLIGHT; POIKILOCYTOSIS SLIGHT
[2020-06-06] MEDS: INSULIN REGULAR, HUMAN 100 UNIT/1 ML 3ML VIAL SQ SCH ×4 (11:30→21:00)
[2020-06-06] MEDS: MIDODRINE 2.5 MG TAB PO PRN (14:58)
[2020-06-06] MEDS: GABAPENTIN 300 MG CAP PO SCH (20:46)
[2020-06-06] MEDS: ALLOPURINOL 300 MG TAB PO SCH (20:46)
[2020-06-06] MEDS: MONTELUKAST SODIUM 10 MG TAB PO SCH (20:46)
[2020-06-06] MEDS: TAMSULOSIN HCL 0.4 MG CAP PO SCH (20:46)
[2020-06-06] MEDS: ACETAMINOPHEN 325 MG TAB PO PRN (20:57)
[2020-06-07] VITALS (9 sets, daily range): BP systolic 79–112; BP diastolic 40–67
[2020-06-07] MEDS: HYDROMORPHONE 1MG/1ML INJ IV PRN ×4 (04:01→18:12)
[2020-06-07] MEDS: LEVOTHYROXINE SODIUM 88 MCG TAB PO SCH (05:14)
[2020-06-07] MEDS: METOPROLOL TARTRATE 25 MG TAB PO SCH ×4 (05:16→20:38)
[2020-06-07] MEDS: ACETAMINOPHEN 1000 MG/100 ML IV PRN ×2 (09:10→15:34)
[2020-06-07 09:53] LABS: BASOPHILS # (AUTO) 0.1 (0.0-0.1); BASOPHILS % 0.7 % (0.0-1.0); EOSINOPHILS # (AUTO) 0.1 (0.0-0.4); EOSINOPHILS % 2.1 % (0.0-6.0); HEMATOCRIT 25.8 % (38.2-49.6); HEMOGLOBIN 7.3 g/dL (14.0-18.0); LYMPHOCYTES # (AUTO) 1.6 (1.0-3.2); LYMPHOCYTES % 23.7 % (18.0-39.1); MEAN CORPUSCULAR HEMOGLOBIN 26.4 pg (28-32); MEAN CORPUSCULAR HGB CONC 28.3 g/dL (31-35); MEAN CORPUSCULAR VOLUME 93.1 fL (81-99); MONOCYTES # (AUTO) 0.8 (0.2-0.8); MONOCYTES % 11.3 % (4.4-11.3); NEUTROPHILS # (AUTO) 4.1 (2.1-6.9); NEUTROPHILS % 61.5 % (38.7-80.0); PLATELET COUNT 136 x10e3/uL (140-360); RED BLOOD COUNT 2.77 x10e6/uL (4.3-5.7); RED CELL DISTRIBUTION WIDTH 18.3 % (11.7-14.4)
[2020-06-07 10:09] LABS: CALCIUM 8.2 mg/dL (8.4-10.2); CREATININE, SERUM 4.34 mg/dL (0.72-1.25)
[2020-06-07 10:51] LABS: ANISOCYTOSIS SLIGHT; HYPOCHROMASIA MODERATE; OVALOCYTES FEW; PLATELET ESTIMATE SLIGHTLY DECREASED; PLATELET MORPHOLOGY COMMENT NORMAL; POLYCHROMASIA FEW
[2020-06-07 10:52] LABS: ELLIPTOCYTE, RBC SLIGHT; RBC MORPHOLOGY COMMENT ABNORMAL
[2020-06-07] MEDS: PANTOPRAZOLE SOD 40 MG TABEC PO SCH (10:59)
[2020-06-07] MEDS: AMIODARONE HCL 200 MG TAB PO SCH ×2 (11:00→20:38)
[2020-06-07] MEDS: GABAPENTIN 300 MG CAP PO SCH ×2 (11:00→17:10)
[2020-06-07] MEDS: INSULIN REGULAR, HUMAN 100 UNIT/1 ML 3ML VIAL SQ SCH ×4 (14:40→20:35)
[2020-06-07] MEDS: TAMSULOSIN HCL 0.4 MG CAP PO SCH (20:38)
[2020-06-07] MEDS: ALLOPURINOL 300 MG TAB PO SCH (20:39)
[2020-06-07] MEDS: MONTELUKAST SODIUM 10 MG TAB PO SCH (20:39)
[2020-06-07] MEDS: ENOXAPARIN SOD INJ 40 MG/0.4 ML SYR SC SCH (20:45)
[2020-06-07] MEDS: MIDODRINE 2.5 MG TAB PO PRN (22:38)
[2020-06-08] VITALS (8 sets, daily range): BP systolic 72–101; BP diastolic 33–83
[2020-06-08] MEDS: ACETAMINOPHEN 325 MG TAB PO PRN (03:14)
[2020-06-08] MEDS: LEVOTHYROXINE SODIUM 88 MCG TAB PO SCH (05:33)
[2020-06-08 07:25] LABS: BASOPHILS % 0.5 % (0.0-1.0); EOSINOPHILS # (AUTO) 0.2 (0.0-0.4); HEMATOCRIT 25.8 % (38.2-49.6); HEMOGLOBIN 7.4 g/dL (14.0-18.0); LYMPHOCYTES # (AUTO) 1.4 (1.0-3.2); MEAN CORPUSCULAR HEMOGLOBIN 26.3 pg (28-32); MEAN CORPUSCULAR HGB CONC 28.7 g/dL (31-35); MEAN CORPUSCULAR VOLUME 91.8 fL (81-99); MONOCYTES # (AUTO) 0.8 (0.2-0.8); MONOCYTES % 10.4 % (4.4-11.3); NEUTROPHILS % 67.6 % (38.7-80.0); PLATELET COUNT 143 x10e3/uL (140-360); RED BLOOD COUNT 2.81 x10e6/uL (4.3-5.7); RED CELL DISTRIBUTION WIDTH 18.5 % (11.7-14.4)
[2020-06-08 07:48] LABS: ALBUMIN 2.6 g/dL (3.5-5.0); ALBUMIN/GLOBULIN RATIO 0.6 (0.8-2.0); ANION GAP 17.3 mmol/L (8-16); CALCIUM 8.3 mg/dL (8.4-10.2); CREATININE, SERUM 5.17 mg/dL (0.72-1.25); POTASSIUM 5.3 mmol/L (3.5-5.1)
[2020-06-08] MEDS ORDERED: SODIUM CHLORIDE 0.9% 250ML 250 ML IV ONE (08:00)
[2020-06-08] MEDS: HYDROMORPHONE 1MG/1ML INJ IV PRN ×2 (08:36→18:07)
[2020-06-08] MEDS: METOPROLOL TARTRATE 25 MG TAB PO SCH ×2 (09:00→21:00)
[2020-06-08] MEDS: PANTOPRAZOLE SOD 40 MG TABEC PO SCH (09:38)
[2020-06-08] MEDS: AMIODARONE HCL 200 MG TAB PO SCH ×2 (09:38→17:51)
[2020-06-08] MEDS: GABAPENTIN 300 MG CAP PO SCH ×2 (09:39→17:51)
[2020-06-08] MEDS: ENOXAPARIN SOD INJ 40 MG/0.4 ML SYR SC SCH ×2 (09:39→21:00)
[2020-06-08] MEDS: INSULIN REGULAR, HUMAN 100 UNIT/1 ML 3ML VIAL SQ SCH ×4 (12:16→21:00)
[2020-06-08] MEDS: ACETAMINOPHEN 1000 MG/100 ML IV PRN ×2 (13:43→22:16)
[2020-06-08] MEDS ORDERED: SODIUM CHLORIDE 0.9% 250ML 0 ML ONE (14:51)
[2020-06-08] MEDS ORDERED: SODIUM CHLORIDE 0.9% 250ML 250 ML ONE (16:56)
[2020-06-08] MEDS: EPOETIN ALFA-EPBX 10,000 UNIT/ML VIAL SC SCH (18:00)
[2020-06-08] MEDS ORDERED: ONDANSETRON HCL 4 MG ORAL DISINTEGRATING TAB PO PRN (19:45)
[2020-06-08] MEDS: MONTELUKAST SODIUM 10 MG TAB PO SCH (21:00)
[2020-06-08] MEDS: TAMSULOSIN HCL 0.4 MG CAP PO SCH (21:00)
[2020-06-08] MEDS: ALLOPURINOL 300 MG TAB PO SCH (21:00)
[2020-06-08] MEDS: MELATONIN 5 MG TABLET PO PRN (21:17)
[2020-06-09] VITALS (7 sets, daily range): BP systolic 90–100; BP diastolic 40–57
[2020-06-09] MEDS: HYDROMORPHONE 1MG/1ML INJ IV PRN ×2 (00:21→04:06)
[2020-06-09] MEDS: LEVOTHYROXINE SODIUM 88 MCG TAB PO SCH (05:36)
[2020-06-09] MEDS: INSULIN REGULAR, HUMAN 100 UNIT/1 ML 3ML VIAL SQ SCH ×4 (07:30→21:00)
[2020-06-09] MEDS: PANTOPRAZOLE SOD 40 MG TABEC PO SCH (07:30)
[2020-06-09] MEDS: ENOXAPARIN SOD INJ 40 MG/0.4 ML SYR SC SCH ×2 (09:00→21:13)
[2020-06-09] MEDS: METOPROLOL TARTRATE 25 MG TAB PO SCH ×2 (09:00→20:06)
[2020-06-09] MEDS: GABAPENTIN 300 MG CAP PO SCH ×2 (09:00→17:00)
[2020-06-09] MEDS: AMIODARONE HCL 200 MG TAB PO SCH ×2 (09:00→21:13)
[2020-06-09] MEDS: HYDROCODONE/APAP 7.5MG-325MG 1 EA TAB PO PRN ×2 (09:07→19:15)
[2020-06-09] MEDS: TAMSULOSIN HCL 0.4 MG CAP PO SCH (21:13)
[2020-06-09] MEDS: ALLOPURINOL 300 MG TAB PO SCH (21:13)
[2020-06-09] MEDS: MONTELUKAST SODIUM 10 MG TAB PO SCH (21:13)
[2020-06-09] MEDS: ACETAMINOPHEN 325 MG TAB PO PRN (21:21)
[2020-06-10] VITALS (7 sets, daily range): BP systolic 94–111; BP diastolic 32–71
[2020-06-10] MEDS: LEVOTHYROXINE SODIUM 88 MCG TAB PO SCH (06:06)
[2020-06-10] MEDS: HYDROCODONE/APAP 7.5MG-325MG 1 EA TAB PO PRN ×2 (06:50→15:23)
[2020-06-10] MEDS: ACETAMINOPHEN 325 MG TAB PO PRN ×3 (07:15→19:06)
[2020-06-10] MEDS: PANTOPRAZOLE SOD 40 MG TABEC PO SCH (08:34)
[2020-06-10] MEDS: GABAPENTIN 300 MG CAP PO SCH ×2 (08:34→16:40)
[2020-06-10] MEDS: ENOXAPARIN SOD INJ 40 MG/0.4 ML SYR SC SCH ×2 (08:34→20:29)
[2020-06-10] MEDS: INSULIN REGULAR, HUMAN 100 UNIT/1 ML 3ML VIAL SQ SCH ×4 (08:37→20:54)
[2020-06-10] MEDS: MIDODRINE 2.5 MG TAB PO PRN (08:40)
[2020-06-10] MEDS: METOPROLOL TARTRATE 25 MG TAB PO SCH ×2 (09:00→20:28)
[2020-06-10] MEDS: AMIODARONE HCL 200 MG TAB PO SCH ×2 (09:00→20:28)
[2020-06-10 10:20] LABS: BASOPHILS % 0.6 % (0.0-1.0); EOSINOPHILS # (AUTO) 0.1 (0.0-0.4); EOSINOPHILS % 2.1 % (0.0-6.0); HEMATOCRIT 27.4 % (38.2-49.6); HEMOGLOBIN 7.9 g/dL (14.0-18.0); LYMPHOCYTES % 19.8 % (18.0-39.1); MEAN CORPUSCULAR HEMOGLOBIN 25.8 pg (28-32); MEAN CORPUSCULAR HGB CONC 28.8 g/dL (31-35); MEAN CORPUSCULAR VOLUME 89.5 fL (81-99); MONOCYTES # (AUTO) 0.6 (0.2-0.8); MONOCYTES % 10.5 % (4.4-11.3); NEUTROPHILS # (AUTO) 3.5 (2.1-6.9); NEUTROPHILS % 66.2 % (38.7-80.0); PLATELET COUNT 128 x10e3/uL (140-360); RED BLOOD COUNT 3.06 x10e6/uL (4.3-5.7); RED CELL DISTRIBUTION WIDTH 20.6 % (11.7-14.4)
[2020-06-10 10:38] LABS: ANION GAP 16.7 mmol/L (8-16); CALCIUM 8.2 mg/dL (8.4-10.2); CREATININE, SERUM 4.74 mg/dL (0.72-1.25); POTASSIUM 4.7 mmol/L (3.5-5.1)
[2020-06-10] MEDS: EPOETIN ALFA-EPBX 10,000 UNIT/ML VIAL SC SCH (16:40)
[2020-06-10] MEDS: HYDROMORPHONE 1MG/1ML INJ IV PRN (19:43)
[2020-06-10] MEDS: ALLOPURINOL 300 MG TAB PO SCH (20:28)
[2020-06-10] MEDS: TAMSULOSIN HCL 0.4 MG CAP PO SCH (20:28)
[2020-06-10] MEDS: MONTELUKAST SODIUM 10 MG TAB PO SCH (20:28)
== END 2020-06-10 22:08 | disposition home health service (06) | DRG 239 ==
LOC: ER 18:52 → ERHOLD 19:28 → MED/SURG2 05-28 01:08
PROVIDERS: ADMIT Internal Medicine; ATTEND Internal Medicine
PROC: 5A1D70Z Performance of Urinary Filtration, Intermittent, Less than 6 Hours Per Day (ICD-10-PCS; 2020-05-29)
PROC: 0Y6H0Z2 Detachment at Right Lower Leg, Mid, Open Approach (ICD-10-PCS; principal; 2020-06-04 13:30)
DX: E11.52 Type 2 diabetes mellitus with diabetic peripheral angiopathy with gangrene (principal); N18.6 End stage renal disease; L03.115 Cellulitis of right lower limb; M86.8X7 Other osteomyelitis, ankle and foot; I48.20 Chronic atrial fibrillation, unspecified; I13.2 Hypertensive heart and chronic kidney disease with heart failure and with stage 5 chronic kidney disease, or end stage renal disease; I50.32 Chronic diastolic (congestive) heart failure; Z79.01 Long term (current) use of anticoagulants; M10.9 Gout, unspecified; E11.40 Type 2 diabetes mellitus with diabetic neuropathy, unspecified; N40.0 Benign prostatic hyperplasia without lower urinary tract symptoms; E11.69 Type 2 diabetes mellitus with other specified complication; E11.22 Type 2 diabetes mellitus with diabetic chronic kidney disease; Z99.2 Dependence on renal dialysis; Z20.822 Contact with and (suspected) exposure to COVID-19; G47.33 Obstructive sleep apnea (adult) (pediatric); D69.6 Thrombocytopenia, unspecified; E66.9 Obesity, unspecified; Z68.30 Body mass index [BMI] 30.0-30.9, adult; E11.51 Type 2 diabetes mellitus with diabetic peripheral angiopathy without gangrene; I95.9 Hypotension, unspecified; G89.18 Other acute postprocedural pain; D63.1 Anemia in chronic kidney disease
CPT/HCPCS: 36415; 71046; 80048; 80053; 82948; 83605; 83735; 84100; 84484; 85025; 85610; 85730; 86704; 86706; 86850; 86900; 86920; 87040; 87340; 88307; 88311; 90962; 93005; 93306; 93926; 96372; 97139; 99251; 99284; J1100; J1170; J1650; J1817; J2001; J2150; J2250; J2405; J2543; J3010; J3370; J7030; J7050; P9016; U0002

== ENCOUNTER 2020-06-21 13:39 | Emergency (ER) | payer MEDICARE ==
[~2020-06-21] VITALS: Ht 185.4 cm; Wt 106.1 kg
[~2020-06-21 13:39] MED LIST changes: +AMIODARONE HCL100 MG PO; +VITAMIN C 250250 MG PO
[2020-06-21 15:52] LABS: BASOPHILS % 0.6 % (0.0-1.0); EOSINOPHILS # (AUTO) 0.2 (0.0-0.4); EOSINOPHILS % 3.1 % (0.0-6.0); HEMATOCRIT 29.9 % (38.2-49.6); HEMOGLOBIN 8.9 g/dL (14.0-18.0); LYMPHOCYTES # (AUTO) 0.9 (1.0-3.2); LYMPHOCYTES % 16.6 % (18.0-39.1); MEAN CORPUSCULAR HEMOGLOBIN 26.3 pg (28-32); MEAN CORPUSCULAR HGB CONC 29.8 g/dL (31-35); MEAN CORPUSCULAR VOLUME 88.5 fL (81-99); MONOCYTES # (AUTO) 0.6 (0.2-0.8); MONOCYTES % 11.4 % (4.4-11.3); NEUTROPHILS # (AUTO) 3.7 (2.1-6.9); NEUTROPHILS % 68.1 % (38.7-80.0); PLATELET COUNT 117 x10e3/uL (140-360); RED BLOOD COUNT 3.38 x10e6/uL (4.3-5.7); RED CELL DISTRIBUTION WIDTH 20.5 % (11.7-14.4)
[2020-06-21] MEDS ORDERED: NEOMYCIN/POLYMYX/BACITR OINT 0.9 GM PKT ONE (17:12)
== END 2020-06-21 18:02 | disposition home or self-care (01) ==
LOC: ER 14:41
DX: Z89.511 Acquired absence of right leg below knee (principal); I12.0 Hypertensive chronic kidney disease with stage 5 chronic kidney disease or end stage renal disease; E11.22 Type 2 diabetes mellitus with diabetic chronic kidney disease; N18.6 End stage renal disease; Z99.2 Dependence on renal dialysis; E03.9 Hypothyroidism, unspecified; K21.9 Gastro-esophageal reflux disease without esophagitis
CPT/HCPCS: 36415; 85025; 99283

== ENCOUNTER 2020-08-04 14:27 | Emergency (ER) | payer MEDICARE ==
[~2020-08-04] VITALS: Ht 185.4 cm; Wt 106.1 kg
[2020-08-04 15:51] LABS: BASOPHILS % 0.3 % (0.0-1.0); EOSINOPHILS # (AUTO) 0.1 (0.0-0.4); EOSINOPHILS % 2.1 % (0.0-6.0); HEMATOCRIT 34.5 % (38.2-49.6); LYMPHOCYTES # (AUTO) 1.4 (1.0-3.2); LYMPHOCYTES % 22.1 % (18.0-39.1); MEAN CORPUSCULAR HEMOGLOBIN 27.7 pg (28-32); MEAN CORPUSCULAR VOLUME 95.6 fL (81-99); MONOCYTES # (AUTO) 0.5 (0.2-0.8); MONOCYTES % 7.7 % (4.4-11.3); NEUTROPHILS # (AUTO) 4.1 (2.1-6.9); NEUTROPHILS % 67.3 % (38.7-80.0); PLATELET COUNT 111 x10e3/uL (140-360); RED BLOOD COUNT 3.61 x10e6/uL (4.3-5.7); RED CELL DISTRIBUTION WIDTH 22.1 % (11.7-14.4)
[2020-08-04 16:10] LABS: INR 1.03; PARTIAL THROMBOPLASTIN TIME 33.2 seconds (23.8-35.5); PROTHROMBIN TIME 14.1 seconds (11.9-14.5)
[2020-08-04 16:13] LABS: ALBUMIN 3.1 g/dL (3.5-5.0); ALBUMIN/GLOBULIN RATIO 0.6 (0.8-2.0); ANION GAP 21.8 mmol/L (8-16); CALCIUM 8.9 mg/dL (8.4-10.2); CREATININE, SERUM 7.69 mg/dL (0.72-1.25)
[2020-08-04 16:14] LABS: POTASSIUM 5.8 mmol/L (3.5-5.1)
[2020-08-04 16:26] LABS: CREATINE KINASE MB 2.2 ng/mL (0-5.0)
[2020-08-04] MEDS ORDERED: SOD POLYSTYRENE SULFONATE SUSP 15 GM/60 ML BTL PO ONE (17:15)
[2020-08-04 19:36] VITALS: BP 156/95
== END 2020-08-04 19:41 | disposition home or self-care (01) ==
LOC: ER 15:16
DX: E87.5 Hyperkalemia (principal); I12.0 Hypertensive chronic kidney disease with stage 5 chronic kidney disease or end stage renal disease; E11.22 Type 2 diabetes mellitus with diabetic chronic kidney disease; N18.6 End stage renal disease; Z99.2 Dependence on renal dialysis; K21.9 Gastro-esophageal reflux disease without esophagitis; E03.9 Hypothyroidism, unspecified; Z89.512 Acquired absence of left leg below knee; Z20.822 Contact with and (suspected) exposure to COVID-19; R94.31 Abnormal electrocardiogram [ECG] [EKG]
CPT/HCPCS: 36415; 70450; 80053; 82550; 82553; 84484; 85025; 85610; 85730; 93005; 99284; U0002

== ENCOUNTER 2020-12-18 17:29 | Inpatient (IN) | payer MEDICARE ==
[~2020-12-18] VITALS: Ht 185.4 cm; Wt 106.1 kg
[2020-12-18] MEDS ORDERED: Vancomycin IV 1 GM in SODIUM CHLORIDE 0.9% 250ML 250 ML IV ONE (18:00)
[2020-12-18] MEDS ORDERED: PIPERACILLIN/TAZOBACTAM 2.25 GM in SODIUM CHLORIDE 0.9% 50ML 50 ML IV SCH (18:00)
[2020-12-18 19:10] LABS: BASOPHILS % 0.2 % (0.0-1.0); EOSINOPHILS # (AUTO) 0.1 (0.0-0.4); EOSINOPHILS % 1.3 % (0.0-6.0); HEMATOCRIT 27.6 % (38.2-49.6); HEMOGLOBIN 8.1 g/dL (14.0-18.0); LYMPHOCYTES # (AUTO) 0.6 (1.0-3.2); LYMPHOCYTES % 12.7 % (18.0-39.1); MEAN CORPUSCULAR HEMOGLOBIN 30.3 pg (28-32); MEAN CORPUSCULAR HGB CONC 29.3 g/dL (31-35); MEAN CORPUSCULAR VOLUME 103.4 fL (81-99); MONOCYTES # (AUTO) 0.5 (0.2-0.8); MONOCYTES % 11.1 % (4.4-11.3); NEUTROPHILS # (AUTO) 3.5 (2.1-6.9); NEUTROPHILS % 73.9 % (38.7-80.0); PLATELET COUNT 93 x10e3/uL (140-360); RED BLOOD COUNT 2.67 x10e6/uL (4.3-5.7); RED CELL DISTRIBUTION WIDTH 16.9 % (11.7-14.4)
[2020-12-18] MEDS: PIPERACILLIN/TAZOBACTAM 3.375 GM in SODIUM CHLORIDE 0.9% 50ML 50 ML IV SCH (19:21)
[2020-12-18 19:22] LABS: ALBUMIN 2.7 g/dL (3.5-5.0); ALBUMIN/GLOBULIN RATIO 0.6 (0.8-2.0); ANION GAP 15.9 mmol/L (8-16); CALCIUM 8.7 mg/dL (8.4-10.2); CREATININE, SERUM 2.67 mg/dL (0.72-1.25); POTASSIUM 3.9 mmol/L (3.5-5.1)
[2020-12-18] MEDS ORDERED: ONDANSETRON HCL INJ 2MG/ML 2ML 2 MG/ML VIAL IV PRN (20:00)
[2020-12-18] MEDS ORDERED: DEXTROSE 50% SYRINGE 50 ML IV PRN (20:00)
[2020-12-18] MEDS ORDERED: SODIUM CHLORIDE FLUSH 10 ML SYR INJ PRN (20:00)
[2020-12-18] MEDS: INSULIN REGULAR, HUMAN 100 UNIT/1 ML SQ SCH (21:00)
[2020-12-18 22:25] VITALS: BP 111/61
[2020-12-18 23:48] VITALS: BP 111/51
[2020-12-19] VITALS (8 sets, daily range): BP systolic 88–133; BP diastolic 27–61
[2020-12-19] MEDS ORDERED: NPH, HUMAN INSULIN ISOPHANE 100 UNIT/1 ML 3ML VIAL SQ SCH ×2 (05:15→09:00)
[2020-12-19] MEDS ORDERED: MIDODRINE 2.5 MG TAB PO PRN (05:15)
[2020-12-19] MEDS ORDERED: SODIUM CHLORIDE 0.9% 250ML 250 ML ONE (05:58)
[2020-12-19] MEDS: LEVOTHYROXINE SODIUM 88 MCG TAB PO SCH (06:24)
[2020-12-19] MEDS: PIPERACILLIN/TAZOBACTAM 3.375 GM in SODIUM CHLORIDE 0.9% 50ML 50 ML IV SCH ×2 (06:24→17:16)
[2020-12-19 06:43] LABS: BASOPHILS % 0.5 % (0.0-1.0); EOSINOPHILS # (AUTO) 0.1 (0.0-0.4); EOSINOPHILS % 1.2 % (0.0-6.0); HEMATOCRIT 25.7 % (38.2-49.6); HEMOGLOBIN 7.9 g/dL (14.0-18.0); LYMPHOCYTES # (AUTO) 0.5 (1.0-3.2); LYMPHOCYTES % 12.5 % (18.0-39.1); MEAN CORPUSCULAR HGB CONC 30.7 g/dL (31-35); MEAN CORPUSCULAR VOLUME 100.8 fL (81-99); MONOCYTES # (AUTO) 0.6 (0.2-0.8); NEUTROPHILS # (AUTO) 2.9 (2.1-6.9); NEUTROPHILS % 70.8 % (38.7-80.0); PLATELET COUNT 79 x10e3/uL (140-360); RED BLOOD COUNT 2.55 x10e6/uL (4.3-5.7); RED CELL DISTRIBUTION WIDTH 16.8 % (11.7-14.4)
[2020-12-19 07:26] LABS: ALBUMIN 2.4 g/dL (3.5-5.0); ALBUMIN/GLOBULIN RATIO 0.6 (0.8-2.0); ANION GAP 17.1 mmol/L (8-16); CALCIUM 8.6 mg/dL (8.4-10.2); CREATININE, SERUM 3.35 mg/dL (0.72-1.25); POTASSIUM 4.1 mmol/L (3.5-5.1)
[2020-12-19] MEDS: INSULIN REGULAR, HUMAN 100 UNIT/1 ML SQ SCH ×4 (07:30→21:51)
[2020-12-19] MEDS: AMIODARONE HCL 200 MG TAB PO SCH (09:08)
[2020-12-19] MEDS: PANTOPRAZOLE SOD 40 MG TABEC PO SCH (09:08)
[2020-12-19] MEDS: NPH, HUMAN INSULIN ISOPHANE 100 UNIT/1 ML 3ML VIAL SQ SCH ×2 (09:08→21:51)
[2020-12-19] MEDS: HYDROCODONE/APAP 10MG-325MG TAB PO PRN ×2 (11:50→18:10)
[2020-12-19] MEDS: TAMSULOSIN HCL 0.4 MG CAP PO SCH (21:00)
[2020-12-19] MEDS: GABAPENTIN 300 MG CAP PO SCH (21:00)
[2020-12-19] MEDS: MONTELUKAST SODIUM 10 MG TAB PO SCH (21:00)
[2020-12-19] MEDS: ALLOPURINOL 300 MG TAB PO SCH (21:00)
[2020-12-20] VITALS (7 sets, daily range): BP systolic 89–133; BP diastolic 33–48
[2020-12-20] MEDS ORDERED: SODIUM CHLORIDE 0.9% 1000ML 2,000 ML ONE (06:38)
[2020-12-20] MEDS: PIPERACILLIN/TAZOBACTAM 3.375 GM in SODIUM CHLORIDE 0.9% 50ML 50 ML IV SCH ×2 (06:45→17:25)
[2020-12-20] MEDS: LEVOTHYROXINE SODIUM 88 MCG TAB PO SCH (06:45)
[2020-12-20] MEDS: INSULIN REGULAR, HUMAN 100 UNIT/1 ML SQ SCH ×4 (07:30→21:46)
[2020-12-20] MEDS ORDERED: HEPARIN SOD (PORCINE) 1000 UNIT/ML SDV IV PRN (09:00)
[2020-12-20] MEDS: NPH, HUMAN INSULIN ISOPHANE 100 UNIT/1 ML 3ML VIAL SQ SCH ×2 (09:00→21:42)
[2020-12-20] MEDS ORDERED: SODIUM CHLORIDE 0.9% 250ML 500 ML IV PRN (09:00)
[2020-12-20] MEDS ORDERED: SODIUM CHLORIDE 0.9% 1000ML 2,000 ML IV PRN (09:00)
[2020-12-20] MEDS ORDERED: ALBUMIN 25% 12.5GM 0.25 GM/ML BTL IV PRN (09:00)
[2020-12-20 09:01] LABS: BASOPHILS % 0.5 % (0.0-1.0); EOSINOPHILS # (AUTO) 0.1 (0.0-0.4); HEMATOCRIT 25.6 % (38.2-49.6); HEMOGLOBIN 7.5 g/dL (14.0-18.0); LYMPHOCYTES # (AUTO) 0.6 (1.0-3.2); LYMPHOCYTES % 14.8 % (18.0-39.1); MEAN CORPUSCULAR HEMOGLOBIN 30.4 pg (28-32); MEAN CORPUSCULAR HGB CONC 29.3 g/dL (31-35); MEAN CORPUSCULAR VOLUME 103.6 fL (81-99); MONOCYTES # (AUTO) 0.5 (0.2-0.8); MONOCYTES % 12.8 % (4.4-11.3); NEUTROPHILS # (AUTO) 2.7 (2.1-6.9); NEUTROPHILS % 68.4 % (38.7-80.0); PLATELET COUNT 87 x10e3/uL (140-360); RED BLOOD COUNT 2.47 x10e6/uL (4.3-5.7); RED CELL DISTRIBUTION WIDTH 16.8 % (11.7-14.4)
[2020-12-20 09:09] LABS: ALBUMIN 2.3 g/dL (3.5-5.0); ALBUMIN/GLOBULIN RATIO 0.5 (0.8-2.0); ANION GAP 17.1 mmol/L (8-16); CALCIUM 8.5 mg/dL (8.4-10.2); CREATININE, SERUM 4.62 mg/dL (0.72-1.25); POTASSIUM 4.1 mmol/L (3.5-5.1)
[2020-12-20] MEDS: PANTOPRAZOLE SOD 40 MG TABEC PO SCH (09:18)
[2020-12-20] MEDS: AMIODARONE HCL 200 MG TAB PO SCH (09:18)
[2020-12-20] MEDS ORDERED: EPOETIN ALFA-EPBX 10,000 UNIT/ML VIAL SC ONE (11:30)
[2020-12-20] MEDS: HYDROCODONE/APAP 10MG-325MG TAB PO PRN (14:30)
[2020-12-20] MEDS: TAMSULOSIN HCL 0.4 MG CAP PO SCH (21:53)
[2020-12-20] MEDS: MONTELUKAST SODIUM 10 MG TAB PO SCH (21:53)
[2020-12-20] MEDS: GABAPENTIN 300 MG CAP PO SCH (21:53)
[2020-12-20] MEDS: ALLOPURINOL 300 MG TAB PO SCH (21:53)
[2020-12-21] VITALS: BP 91/42
[2020-12-21 01:54] VITALS: BP 91/42
[2020-12-21] MEDS: PIPERACILLIN/TAZOBACTAM 3.375 GM in SODIUM CHLORIDE 0.9% 50ML 50 ML IV SCH ×2 (06:10→18:21)
[2020-12-21] MEDS: LEVOTHYROXINE SODIUM 88 MCG TAB PO SCH (06:10)
[2020-12-21 06:25] LABS: BASOPHILS % 0.4 % (0.0-1.0); EOSINOPHILS # (AUTO) 0.1 (0.0-0.4); EOSINOPHILS % 1.9 % (0.0-6.0); HEMATOCRIT 26.2 % (38.2-49.6); HEMOGLOBIN 7.6 g/dL (14.0-18.0); LYMPHOCYTES # (AUTO) 0.8 (1.0-3.2); LYMPHOCYTES % 16.8 % (18.0-39.1); MEAN CORPUSCULAR HEMOGLOBIN 30.6 pg (28-32); MEAN CORPUSCULAR VOLUME 105.6 fL (81-99); MONOCYTES # (AUTO) 0.6 (0.2-0.8); MONOCYTES % 13.4 % (4.4-11.3); NEUTROPHILS # (AUTO) 3.1 (2.1-6.9); PLATELET COUNT 103 x10e3/uL (140-360); RED BLOOD COUNT 2.48 x10e6/uL (4.3-5.7); RED CELL DISTRIBUTION WIDTH 16.9 % (11.7-14.4)
[2020-12-21 06:59] LABS: ALBUMIN 2.3 g/dL (3.5-5.0); ALBUMIN/GLOBULIN RATIO 0.5 (0.8-2.0); ANION GAP 14.3 mmol/L (8-16); CALCIUM 8.6 mg/dL (8.4-10.2); CREATININE, SERUM 3.22 mg/dL (0.72-1.25); POTASSIUM 4.3 mmol/L (3.5-5.1)
[2020-12-21] MEDS: PANTOPRAZOLE SOD 40 MG TABEC PO SCH (07:30)
[2020-12-21 08:05] VITALS: BP 105/35
[2020-12-21 08:17] LABS: ANISOCYTOSIS MODERATE; PLATELET ESTIMATE SLIGHTLY DECREASED; PLATELET MORPHOLOGY COMMENT NORMAL; RBC MORPHOLOGY COMMENT ABNORMAL
[2020-12-21] MEDS: INSULIN REGULAR, HUMAN 100 UNIT/1 ML SQ SCH ×4 (09:41→21:33)
[2020-12-21] MEDS: AMIODARONE HCL 200 MG TAB PO SCH (09:58)
[2020-12-21 11:50] VITALS: BP 99/40
[2020-12-21] MEDS: NPH, HUMAN INSULIN ISOPHANE 100 UNIT/1 ML 3ML VIAL SQ SCH ×2 (11:55→21:34)
[2020-12-21] MEDS ORDERED: BUPIVACAINE 0.25% 30ML SDV ONE (12:03)
[2020-12-21] MEDS ORDERED: LIDOCAINE HCL 1% LOCAL INJ 20 ML VIAL ONE (14:05)
[2020-12-21 16:00] VITALS: BP 108/59
[2020-12-21] MEDS: HYDROCODONE/APAP 10MG-325MG TAB PO PRN ×2 (18:21→22:47)
[2020-12-21 20:00] VITALS: BP 108/38
[2020-12-21] MEDS: TAMSULOSIN HCL 0.4 MG CAP PO SCH (21:45)
[2020-12-21] MEDS: MONTELUKAST SODIUM 10 MG TAB PO SCH (21:45)
[2020-12-21] MEDS: GABAPENTIN 300 MG CAP PO SCH (21:45)
[2020-12-21] MEDS: ALLOPURINOL 300 MG TAB PO SCH (21:45)
[2020-12-22] VITALS (10 sets, daily range): BP systolic 108–138; BP diastolic 30–65
[2020-12-22 05:08] LABS: BASOPHILS % 0.4 % (0.0-1.0); EOSINOPHILS # (AUTO) 0.1 (0.0-0.4); EOSINOPHILS % 1.8 % (0.0-6.0); HEMATOCRIT 25.4 % (38.2-49.6); HEMOGLOBIN 7.3 g/dL (14.0-18.0); LYMPHOCYTES # (AUTO) 0.8 (1.0-3.2); LYMPHOCYTES % 15.6 % (18.0-39.1); MEAN CORPUSCULAR HEMOGLOBIN 30.3 pg (28-32); MEAN CORPUSCULAR HGB CONC 28.7 g/dL (31-35); MEAN CORPUSCULAR VOLUME 105.4 fL (81-99); MONOCYTES # (AUTO) 0.9 (0.2-0.8); MONOCYTES % 19.3 % (4.4-11.3); NEUTROPHILS % 62.1 % (38.7-80.0); PLATELET COUNT 104 x10e3/uL (140-360); RED BLOOD COUNT 2.41 x10e6/uL (4.3-5.7); RED CELL DISTRIBUTION WIDTH 16.8 % (11.7-14.4)
[2020-12-22 05:27] LABS: ANION GAP 13.6 mmol/L (8-16); CALCIUM 8.6 mg/dL (8.4-10.2); CREATININE, SERUM 4.37 mg/dL (0.72-1.25); POTASSIUM 4.6 mmol/L (3.5-5.1)
[2020-12-22] MEDS: HYDROCODONE/APAP 10MG-325MG TAB PO PRN ×3 (06:33→22:00)
[2020-12-22] MEDS: LEVOTHYROXINE SODIUM 88 MCG TAB PO SCH (06:34)
[2020-12-22] MEDS: PIPERACILLIN/TAZOBACTAM 3.375 GM in SODIUM CHLORIDE 0.9% 50ML 50 ML IV SCH ×2 (06:34→22:16)
[2020-12-22] MEDS ORDERED: SODIUM CHLORIDE 0.9% 250ML 250 ML IV ONE (07:30)
[2020-12-22] MEDS: PANTOPRAZOLE SOD 40 MG TABEC PO SCH (09:52)
[2020-12-22] MEDS: AMIODARONE HCL 200 MG TAB PO SCH (09:52)
[2020-12-22] MEDS: INSULIN REGULAR, HUMAN 100 UNIT/1 ML SQ SCH ×4 (10:03→21:00)
[2020-12-22] MEDS: NPH, HUMAN INSULIN ISOPHANE 100 UNIT/1 ML 3ML VIAL SQ SCH ×2 (10:04→22:23)
[2020-12-22] MEDS ORDERED: ONDANSETRON HCL 4 MG ORAL DISINTEGRATING TAB PO PRN (13:00)
[2020-12-22] MEDS: GABAPENTIN 300 MG CAP PO SCH (20:27)
[2020-12-22] MEDS: ALLOPURINOL 300 MG TAB PO SCH (20:27)
[2020-12-22] MEDS: TAMSULOSIN HCL 0.4 MG CAP PO SCH (20:27)
[2020-12-22] MEDS: MONTELUKAST SODIUM 10 MG TAB PO SCH (22:16)
[2020-12-23] VITALS: BP 126/34
[2020-12-23 02:39] VITALS: BP 124/37
[2020-12-23 04:00] VITALS: BP 121/46
[2020-12-23] MEDS: LEVOTHYROXINE SODIUM 88 MCG TAB PO SCH (05:08)
[2020-12-23] MEDS: PIPERACILLIN/TAZOBACTAM 3.375 GM in SODIUM CHLORIDE 0.9% 50ML 50 ML IV SCH (05:08)
[2020-12-23 07:34] VITALS: BP 114/49
== END 2020-12-23 09:57 | disposition home health service (06) | DRG 255 ==
LOC: ER 17:39 → ERHOLD 20:10 → MED/SURG3 22:25
PROVIDERS: ADMIT Internal Medicine; ATTEND Internal Medicine
PROC: 5A1D70Z Performance of Urinary Filtration, Intermittent, Less than 6 Hours Per Day (ICD-10-PCS; 2020-12-20)
PROC: 0X6S0Z0 Detachment at Right Ring Finger, Complete, Open Approach (ICD-10-PCS; 2020-12-21)
PROC: 0X6V0Z0 Detachment at Right Little Finger, Complete, Open Approach (ICD-10-PCS; principal; 2020-12-21 12:30)
PROC: 30233N1 Transfusion of Nonautologous Red Blood Cells into Peripheral Vein, Percutaneous Approach (ICD-10-PCS; 2020-12-22)
DX: E11.52 Type 2 diabetes mellitus with diabetic peripheral angiopathy with gangrene (principal); N18.6 End stage renal disease; I96 Gangrene, not elsewhere classified; I12.0 Hypertensive chronic kidney disease with stage 5 chronic kidney disease or end stage renal disease; L03.113 Cellulitis of right upper limb; T82.898A Other specified complication of vascular prosthetic devices, implants and grafts, initial encounter; E11.22 Type 2 diabetes mellitus with diabetic chronic kidney disease; Z99.2 Dependence on renal dialysis; Z89.512 Acquired absence of left leg below knee; Z88.1 Allergy status to other antibiotic agents; N40.0 Benign prostatic hyperplasia without lower urinary tract symptoms; G47.33 Obstructive sleep apnea (adult) (pediatric); M10.9 Gout, unspecified; Z82.49 Family history of ischemic heart disease and other diseases of the circulatory system; E66.9 Obesity, unspecified; Z68.30 Body mass index [BMI] 30.0-30.9, adult; I48.91 Unspecified atrial fibrillation; E03.9 Hypothyroidism, unspecified; D64.9 Anemia, unspecified; D69.6 Thrombocytopenia, unspecified; D72.819 Decreased white blood cell count, unspecified; Z79.4 Long term (current) use of insulin
CPT/HCPCS: 36415; 80048; 80053; 82948; 85025; 86704; 86706; 86850; 86900; 86920; 87040; 87340; 87350; 88304; 88305; 88311; 94660; 99284; J1644; J1817; J2001; J2405; J2543; J3370; J7030; J7050; P9016; U0002

== ENCOUNTER 2020-12-25 12:45 | Inpatient (IN) | payer MEDICARE ==
[~2020-12-25] VITALS: Ht 185.4 cm; Wt 102.1 kg
[2020-12-25 13:24] LABS: BASOPHILS % 0.5 % (0.0-1.0); EOSINOPHILS # (AUTO) 0.1 (0.0-0.4); EOSINOPHILS % 1.4 % (0.0-6.0); HEMATOCRIT 32.4 % (38.2-49.6); HEMOGLOBIN 9.5 g/dL (14.0-18.0); LYMPHOCYTES # (AUTO) 1.2 (1.0-3.2); LYMPHOCYTES % 21.9 % (18.0-39.1); MEAN CORPUSCULAR HEMOGLOBIN 30.4 pg (28-32); MEAN CORPUSCULAR HGB CONC 29.3 g/dL (31-35); MEAN CORPUSCULAR VOLUME 103.5 fL (81-99); MONOCYTES # (AUTO) 0.8 (0.2-0.8); MONOCYTES % 14.2 % (4.4-11.3); NEUTROPHILS # (AUTO) 3.4 (2.1-6.9); NEUTROPHILS % 60.7 % (38.7-80.0); PLATELET COUNT 116 x10e3/uL (140-360); RED BLOOD COUNT 3.13 x10e6/uL (4.3-5.7); RED CELL DISTRIBUTION WIDTH 17.9 % (11.7-14.4)
[2020-12-25 13:33] LABS: INR 1.13; PROTHROMBIN TIME 14.7 seconds (11.9-14.5)
[2020-12-25 13:34] LABS: PARTIAL THROMBOPLASTIN TIME 32.8 seconds (23.8-35.5)
[2020-12-25 13:50] LABS: ALANINE AMINOTRANSFERASE 9 IU/L (0-55); ALBUMIN 2.6 g/dL (3.5-5.0); ALBUMIN/GLOBULIN RATIO 0.5 (0.8-2.0); ALKALINE PHOSPHATASE 119 IU/L (40-150); ANION GAP 20.5 mmol/L (8-16); BLOOD UREA NITROGEN 40 mg/dL (7-26); BUN/CREATININE RATIO 7 (6-25); CALCIUM 9.1 mg/dL (8.4-10.2); CARBON DIOXIDE 22 mmol/L (22-29); CHLORIDE 101 mmol/L (98-107); CREATININE, SERUM 5.83 mg/dL (0.72-1.25); EST GLOMERULAR FILTRATION RATE 9 ML/MIN (60-); GLUCOSE 298 mg/dL (74-118); MAGNESIUM 1.9 MG/DL (1.3-2.1); POTASSIUM 5.5 mmol/L (3.5-5.1); SODIUM 138 mmol/L (136-145)
[2020-12-25 14:05] LABS: CREATINE KINASE < 7 IU/L (30-200)
[2020-12-25] MEDS ORDERED: SODIUM BICARBONATE 8.4% INJ 50 ML SYR IV STA (14:45)
[2020-12-25] MEDS ORDERED: DEXTROSE 50% SYRINGE 50 ML IV STA (14:45)
[2020-12-25] MEDS ORDERED: INSULIN REGULAR, HUMAN 100 UNIT/1 ML IV ONE (14:45)
[2020-12-25] MEDS ORDERED: SODIUM CHLORIDE 0.9% 1000ML 2,000 ML ONE (16:16)
[2020-12-25 20:38] LABS: CREATINE KINASE < 7 IU/L (30-200)
[2020-12-25] MEDS ORDERED: TAMSULOSIN HCL 0.4 MG CAP PO SCH (21:00)
[2020-12-26] VITALS (7 sets, daily range): BP systolic 129–156; BP diastolic 41–51
[2020-12-26 03:02] LABS: CREATINE KINASE < 7 IU/L (30-200)
[2020-12-26] MEDS ORDERED: LEVOTHYROXINE SODIUM 88 MCG TAB PO SCH (06:00)
[2020-12-26] MEDS ORDERED: DEXTROSE 50% SYRINGE 50 ML IV PRN (09:00)
[2020-12-26 09:11] LABS: BASOPHILS % 0.5 % (0.0-1.0); EOSINOPHILS # (AUTO) 0.1 (0.0-0.4); EOSINOPHILS % 1.6 % (0.0-6.0); HEMATOCRIT 29.1 % (38.2-49.6); HEMOGLOBIN 8.7 g/dL (14.0-18.0); MEAN CORPUSCULAR HEMOGLOBIN 30.5 pg (28-32); MEAN CORPUSCULAR HGB CONC 29.9 g/dL (31-35); MEAN CORPUSCULAR VOLUME 102.1 fL (81-99); MONOCYTES # (AUTO) 0.7 (0.2-0.8); MONOCYTES % 15.8 % (4.4-11.3); NEUTROPHILS # (AUTO) 2.5 (2.1-6.9); NEUTROPHILS % 56.8 % (38.7-80.0); PLATELET COUNT 118 x10e3/uL (140-360); RED BLOOD COUNT 2.85 x10e6/uL (4.3-5.7); RED CELL DISTRIBUTION WIDTH 17.6 % (11.7-14.4)
[2020-12-26 09:28] LABS: ALBUMIN 2.2 g/dL (3.5-5.0); ALBUMIN/GLOBULIN RATIO 0.5 (0.8-2.0); ANION GAP 12.2 mmol/L (8-16); CALCIUM 8.5 mg/dL (8.4-10.2); CHOL/HDL RATIO 4.4 (3.9-4.7); CREATININE, SERUM 3.99 mg/dL (0.72-1.25); POTASSIUM 4.2 mmol/L (3.5-5.1)
[2020-12-26 09:44] LABS: CREATINE KINASE < 7 IU/L (30-200)
[2020-12-26] MEDS ORDERED: LEVOTHYROXINE75 MCG PO (11:32)
[2020-12-26] MEDS ORDERED: CALCIUM ACETAT667 M1 PO (11:32)
[2020-12-26] MEDS ORDERED: HYDROCODON-ACE1 EA12 PO (11:32)
[2020-12-26] MEDS ORDERED: AUGMENTIN 500-1 EACH PO (11:32)
[2020-12-26] MEDS ORDERED: DICYCLOMINE HCL20 MG PO (11:32)
[2020-12-26] MEDS: INSULIN LISPRO 100 UNIT/1 ML 3ML VIAL SQ SCH ×3 (11:55→21:12)
[2020-12-26] MEDS ORDERED: Vancomycin IV 1 GM in SODIUM CHLORIDE 0.9% 250ML 250 ML IV ONE (12:30)
[2020-12-26] MEDS ORDERED: MIDODRINE 2.5 MG TAB PO PRN (12:45)
[2020-12-26] MEDS ORDERED: DICYCLOMINE HCL 20 MG TAB PO PRN (12:45)
[2020-12-26] MEDS ORDERED: SODIUM CHLORIDE 0.9% 250ML 250 ML ONE (13:16)
[2020-12-26] MEDS ORDERED: NPH, HUMAN INSULIN ISOPHANE 100 UNIT/1 ML 3ML VIAL SQ SCH (13:30)
[2020-12-26] MEDS: CALCIUM ACETATE 667 MG GELCAP PO SCH (16:47)
[2020-12-26] MEDS: INSULIN REGULAR, HUMAN 100 UNIT/1 ML SQ SCH (16:47)
[2020-12-26] MEDS: MONTELUKAST SODIUM 10 MG TAB PO SCH (20:20)
[2020-12-26] MEDS: GABAPENTIN 300 MG CAP PO SCH (20:20)
[2020-12-26] MEDS: HYDROCODONE/APAP 7.5MG-325MG 1 EA TAB PO PRN (20:25)
[2020-12-26] MEDS: ALLOPURINOL 300 MG TAB PO SCH (20:25)
[2020-12-26] MEDS: NPH, HUMAN INSULIN ISOPHANE 100 UNIT/1 ML 3ML VIAL SQ SCH (21:11)
[2020-12-27] VITALS (8 sets, daily range): BP systolic 114–145; BP diastolic 43–74
[2020-12-27] MEDS: LEVOTHYROXINE SODIUM 75 MCG TAB PO SCH (06:16)
[2020-12-27] MEDS: INSULIN REGULAR, HUMAN 100 UNIT/1 ML SQ SCH ×3 (08:00→16:58)
[2020-12-27] MEDS ORDERED: LEVOTHYROXINE SODIUM 75 MCG TAB PO SCH (09:00)
[2020-12-27] MEDS: INSULIN LISPRO 100 UNIT/1 ML 3ML VIAL SQ SCH ×4 (09:30→21:14)
[2020-12-27] MEDS: PANTOPRAZOLE SOD 40 MG TABEC PO SCH (09:30)
[2020-12-27] MEDS: NPH, HUMAN INSULIN ISOPHANE 100 UNIT/1 ML 3ML VIAL SQ SCH ×2 (09:30→21:00)
[2020-12-27] MEDS: CALCIUM ACETATE 667 MG GELCAP PO SCH ×3 (09:30→16:55)
[2020-12-27] MEDS: HYDROCODONE/APAP 7.5MG-325MG 1 EA TAB PO PRN ×3 (11:40→20:23)
[2020-12-27] MEDS: GABAPENTIN 300 MG CAP PO SCH (20:38)
[2020-12-27] MEDS: MONTELUKAST SODIUM 10 MG TAB PO SCH (20:38)
[2020-12-27] MEDS: ALLOPURINOL 300 MG TAB PO SCH (20:38)
[2020-12-27] MEDS ORDERED: DIPHENHYDRAMINE HCL 25 MG CAP PO PRN (23:15)
[2020-12-28] VITALS (9 sets, daily range): BP systolic 111–143; BP diastolic 33–66
[2020-12-28] MEDS: LEVOTHYROXINE SODIUM 75 MCG TAB PO SCH (06:00)
[2020-12-28] MEDS: INSULIN LISPRO 100 UNIT/1 ML 3ML VIAL SQ SCH ×4 (07:29→20:37)
[2020-12-28 07:38] LABS: BASOPHILS % 0.4 % (0.0-1.0); EOSINOPHILS # (AUTO) 0.1 (0.0-0.4); EOSINOPHILS % 1.2 % (0.0-6.0); HEMATOCRIT 29.1 % (38.2-49.6); HEMOGLOBIN 8.5 g/dL (14.0-18.0); LYMPHOCYTES # (AUTO) 1.4 (1.0-3.2); LYMPHOCYTES % 17.7 % (18.0-39.1); MEAN CORPUSCULAR HGB CONC 29.2 g/dL (31-35); MEAN CORPUSCULAR VOLUME 102.8 fL (81-99); MONOCYTES # (AUTO) 1.2 (0.2-0.8); MONOCYTES % 15.3 % (4.4-11.3); NEUTROPHILS % 64.6 % (38.7-80.0); PLATELET COUNT 116 x10e3/uL (140-360); RED BLOOD COUNT 2.83 x10e6/uL (4.3-5.7); RED CELL DISTRIBUTION WIDTH 17.3 % (11.7-14.4)
[2020-12-28 07:58] LABS: ANION GAP 16.1 mmol/L (8-16); CALCIUM 8.9 mg/dL (8.4-10.2); CREATININE, SERUM 6.23 mg/dL (0.72-1.25); POTASSIUM 5.1 mmol/L (3.5-5.1)
[2020-12-28] MEDS: INSULIN REGULAR, HUMAN 100 UNIT/1 ML SQ SCH ×3 (08:00→17:45)
[2020-12-28] MEDS: CALCIUM ACETATE 667 MG GELCAP PO SCH ×3 (08:00→16:05)
[2020-12-28] MEDS: PANTOPRAZOLE SOD 40 MG TABEC PO SCH (08:38)
[2020-12-28] MEDS: NPH, HUMAN INSULIN ISOPHANE 100 UNIT/1 ML 3ML VIAL SQ SCH ×2 (08:39→20:38)
[2020-12-28] MEDS: BALSAM PERU/CASTOR OIL 60 GM OINT...G. TP SCH (09:33)
[2020-12-28] MEDS ORDERED: FENTANYL CITRATE/PF 100MCG/2 ML INJ ONE (10:58)
[2020-12-28] MEDS ORDERED: MIDAZOLAM HCL 2 MG/2 ML VIAL ONE (10:58)
[2020-12-28] MEDS ORDERED: SODIUM CHLORIDE 0.9% 500ML 500 ML ONE (10:59)
[2020-12-28] MEDS ORDERED: Vancomycin IV 1 GM VIAL ONE (10:59)
[2020-12-28] MEDS ORDERED: LIDOCAINE HCL 2% LOCAL 20 ML VIAL ONE (10:59)
[2020-12-28] MEDS ORDERED: SODIUM CHLORIDE 0.9% 1000ML 2,000 ML ONE (10:59)
[2020-12-28] MEDS ORDERED: SODIUM CHLORIDE 0.9% 250ML 250 ML ONE (11:00)
[2020-12-28] MEDS ORDERED: GENTAMICIN SULFATE 40 MG/ML 2 ML VIAL ONE (11:06)
[2020-12-28] MEDS: Vancomycin IV 1 GM in SODIUM CHLORIDE 0.9% 250ML 250 ML IV SCH ×2 (16:00→23:00)
[2020-12-28] MEDS: GABAPENTIN 300 MG CAP PO SCH (20:02)
[2020-12-28] MEDS: ALLOPURINOL 300 MG TAB PO SCH (20:02)
[2020-12-28] MEDS: MONTELUKAST SODIUM 10 MG TAB PO SCH (20:02)
[2020-12-28] MEDS ORDERED: SODIUM CHLORIDE 0.9% 1000ML 1,000 ML IV PRN (20:30)
[2020-12-28] MEDS ORDERED: HEPARIN SOD (PORCINE) 1000 UNIT/ML SDV IV PRN (20:30)
[2020-12-28] MEDS ORDERED: HEPARIN SOD (PORCINE) 1000 UNIT/ML SDV ONE (20:35)
[2020-12-28] MEDS ORDERED: SODIUM CHLORIDE 0.9% 1000ML 1,000 ML ONE (20:35)
[2020-12-28] MEDS: HYDROCODONE/APAP 7.5MG-325MG 1 EA TAB PO PRN (22:10)
[2020-12-29] VITALS (9 sets, daily range): BP systolic 92–126; BP diastolic 38–54
[2020-12-29] MEDS ORDERED: HEPARIN SOD (PORCINE) 1000 UNIT/ML SDV ONE (00:30)
[2020-12-29] MEDS: ACETAMINOPHEN 325 MG TAB PO PRN ×2 (00:50→20:40)
[2020-12-29] MEDS: HYDROCODONE/APAP 7.5MG-325MG 1 EA TAB PO PRN ×3 (02:19→17:09)
[2020-12-29] MEDS: LEVOTHYROXINE SODIUM 75 MCG TAB PO SCH (05:45)
[2020-12-29] MEDS: INSULIN REGULAR, HUMAN 100 UNIT/1 ML SQ SCH ×3 (08:00→17:11)
[2020-12-29] MEDS: PANTOPRAZOLE SOD 40 MG TABEC PO SCH (08:11)
[2020-12-29] MEDS: CALCIUM ACETATE 667 MG GELCAP PO SCH ×3 (08:11→17:08)
[2020-12-29] MEDS: BALSAM PERU/CASTOR OIL 60 GM OINT...G. TP SCH (08:11)
[2020-12-29] MEDS: INSULIN LISPRO 100 UNIT/1 ML 3ML VIAL SQ SCH ×4 (08:30→20:21)
[2020-12-29] MEDS: NPH, HUMAN INSULIN ISOPHANE 100 UNIT/1 ML 3ML VIAL SQ SCH ×2 (08:30→20:40)
[2020-12-29 08:44] LABS: ANION GAP 12.5 mmol/L (8-16); CALCIUM 8.6 mg/dL (8.4-10.2); CREATININE, SERUM 3.49 mg/dL (0.72-1.25); POTASSIUM 4.5 mmol/L (3.5-5.1)
[2020-12-29] MEDS ORDERED: NEOMYCIN/POLYMYXIN/BACITRACIN 15 GM TUBE TOP PRN (18:15)
[2020-12-29] MEDS: MONTELUKAST SODIUM 10 MG TAB PO SCH (20:40)
[2020-12-29] MEDS: ALLOPURINOL 300 MG TAB PO SCH (20:40)
[2020-12-29] MEDS: GABAPENTIN 300 MG CAP PO SCH (20:40)
[2020-12-30 00:33] VITALS: BP 118/46
[2020-12-30 04:18] VITALS: BP 114/52
[2020-12-30] MEDS: LEVOTHYROXINE SODIUM 75 MCG TAB PO SCH (06:09)
[2020-12-30 07:58] VITALS: BP 116/54
[2020-12-30] MEDS ORDERED: SODIUM CHLORIDE 0.9% 250ML 500 ML IV PRN (08:00)
[2020-12-30] MEDS ORDERED: HEPARIN SOD (PORCINE) 1000 UNIT/ML SDV IV PRN (08:00)
[2020-12-30] MEDS ORDERED: SODIUM CHLORIDE 0.9% 1000ML 2,000 ML IV PRN (08:00)
[2020-12-30] MEDS ORDERED: ALBUMIN 25% 12.5GM 0.25 GM/ML BTL IV PRN (08:00)
[2020-12-30] MEDS: CALCIUM ACETATE 667 MG GELCAP PO SCH ×2 (08:20→12:00)
[2020-12-30] MEDS: PANTOPRAZOLE SOD 40 MG TABEC PO SCH (08:20)
[2020-12-30] MEDS: INSULIN LISPRO 100 UNIT/1 ML 3ML VIAL SQ SCH ×2 (08:29→11:30)
[2020-12-30] MEDS: INSULIN REGULAR, HUMAN 100 UNIT/1 ML SQ SCH ×2 (08:35→12:00)
[2020-12-30] MEDS: NPH, HUMAN INSULIN ISOPHANE 100 UNIT/1 ML 3ML VIAL SQ SCH (08:44)
[2020-12-30 10:37] VITALS: BP 109/60
[2020-12-30 12:28] VITALS: BP 105/48
[2020-12-30] MEDS: BALSAM PERU/CASTOR OIL 60 GM OINT...G. TP SCH (12:57)
== END 2020-12-30 16:25 | disposition home or self-care (01) | DRG 242 ==
LOC: ER 12:57 → ERHOLD 15:20 → IMCU 12-26 02:37
PROVIDERS: ADMIT Internal Medicine; ATTEND Internal Medicine
PROC: 0JH606Z Insertion of Pacemaker, Dual Chamber into Chest Subcutaneous Tissue and Fascia, Open Approach (ICD-10-PCS; principal; 2020-12-28)
PROC: 02HK3JZ Insertion of Pacemaker Lead into Right Ventricle, Percutaneous Approach (ICD-10-PCS; 2020-12-28)
DX: I49.5 Sick sinus syndrome (principal); N18.6 End stage renal disease; I12.0 Hypertensive chronic kidney disease with stage 5 chronic kidney disease or end stage renal disease; I44.2 Atrioventricular block, complete; I48.19 Other persistent atrial fibrillation; E11.22 Type 2 diabetes mellitus with diabetic chronic kidney disease; Z99.2 Dependence on renal dialysis; E87.5 Hyperkalemia; I51.89 Other ill-defined heart diseases; Z89.111 Acquired absence of right hand; Z89.512 Acquired absence of left leg below knee; Z89.511 Acquired absence of right leg below knee; Z79.01 Long term (current) use of anticoagulants; Z79.899 Other long term (current) drug therapy; Z89.021 Acquired absence of right finger(s); E03.9 Hypothyroidism, unspecified; M10.9 Gout, unspecified; G47.33 Obstructive sleep apnea (adult) (pediatric); D69.6 Thrombocytopenia, unspecified; E11.51 Type 2 diabetes mellitus with diabetic peripheral angiopathy without gangrene
CPT/HCPCS: 33206; 36415; 71045; 75822; 80048; 80053; 80061; 80202; 82550; 82553; 82948; 83735; 84484; 85025; 85610; 85730; 86704; 86706; 87040; 87340; 90962; 93005; 93306; 96372; 99152; 99153; 99251; 99284; C1769; J1580; J1644; J1817; J2001; J2250; J3010; J3370; J7030; J7040; J7050; J7799; U0002